=== PATIENT | male | born 1985 | race Caucasian/White ===

== ENCOUNTER 2016-05-11 12:08 | Observation (INO) | payer OTHER ==
[2016-05-11] MEDS ORDERED: diphenhydrAMINE 50 MG/ML 1 ML VIAL IVP STA (13:44)
[2016-05-11] MEDS ORDERED: SODIUM CHLORIDE 0.9% 500 ML IV STA (13:44)
[2016-05-11] MEDS ORDERED: SODIUM CHLORIDE 0.9% 1,000 ML IV STA (13:44)
[2016-05-11] MEDS ORDERED: PROMETHAZINE INJ 25 MG/ML 1 ML VIAL IM STA (13:44)
[2016-05-11] MEDS ORDERED: LORazepam 2 MG/ML SYRINGE IV STA (13:44)
[2016-05-11 14:05] LABS: Basophils # (A) 0.1 k/uL (0-0.2); Basophils % (A) 0 %; CHCM 36.1; Eosinophils # (A) 0.2 k/uL (0-0.7); Eosinophils % (A) 1 %; HCT 47.7 % (39.0-53.0); HDW 2.82; HGB 16.8 gm/dL (13.0-17.5); Luc # (Auto) 0.17; Luc % (Auto) 1; Lymphocytes # (A) 2.2 k/uL (1.0-4.8); Lymphocytes % (A) 14 %; MCH 29.4 pg (25.0-35.0); MCHC 35.3 g/dL (31.0-37.0); MCV 83.4 fL (80.0-100.0); Mean Platelet Volume 8.4; Monocytes # (A) 0.6 k/uL (0-1.0); Monocytes % (A) 3 %; Neutrophils # (A) 13.1 k/uL (1.3-7.7); Neutrophils % (A) 80 %; RBC 5.72 m/uL (4.30-5.90); RDW 13.1 % (11.5-15.5); WBC 16.3 k/uL (3.8-10.6); WBC (Perox) 14.88
[2016-05-11 14:18] LABS: ALT 89 U/L (21-72); AST 45 U/L (17-59); Alkaline Phosphatase 83 U/L (38-126); Amylase 69 U/L (30-110); Anion Gap 20 mmol/L; Blood Urea Nitrogen 15 mg/dL (9-20); Calcium 10.8 mg/dL (8.4-10.2); Carbon Dioxide 18 mmol/L (22-30); Chloride 106 mmol/L (98-107); Glucose 127 mg/dL (74-99); Non-African American GFR(MDRD) >60 (>60 ml/min/1.73 sqM); Potassium 4.5 mmol/L (3.5-5.1); Sodium 144 mmol/L (137-145); Total Bilirubin 1.2 mg/dL (0.2-1.3); Total Protein 8.4 g/dL (6.3-8.2)
--- NOTE | 2016-05-11 14:21 | XR ---
EXAMINATION TYPE: XR KUB DATE OF EXAM: 05/11/2016 2:16 PM COMPARISON: 04/12/2016 HISTORY: Vomiting and abdominal pain TECHNIQUE: One view abdominal series FINDINGS: The osseous structures are intact. The bowel gas pattern is nonspecific. Lung bases are clear. Surg ical clips in the right upper quadrant. IMPRESSION: 1. Nonspecific abdomen. Paucity of bowel gas can be seen with enteritis or ileus. Correlate clinical ly.
[2016-05-11] MEDS ORDERED: HYDROmorphone 1 MG/ML 1 ML SYRINGE IVP STA (14:43)
--- NOTE | 2016-05-11 14:43 | ED ---
General Adult HPI - General Chief complaint: Nausea/Vomiting/Diarrhea Stated complaint: vomiting 4 hours Time Seen by Provider: 05/11/16 13:37 Source: patient, RN notes reviewed Mode of arrival: ambulatory Limitations: no limitations - History of Present Illness Initial comments: Patient 31-year-old male significant past medical history for cyclic vomiting syndrome, who presents emergency room today with chief complaint of exacerbation of his chronic symptoms. Patient does admit to increased nausea vomiting started early this morning. He denies any signs of blood in the emesis. Patient does admit to pain in the middle of his abdomen. States consistent with his cyclic vomiting. Patient denies any other complaints or symptoms at this time. Patient denies any recent fever, chills, shortness of breath, chest pain, back pain, numbness or tingling, dysuria or hematuria, constipation or diarrhea, headaches or visual changes, or any other complaints. - Related Data Home Medications Medication Instructions Recorded Confirmed Hydrocodone/Acetaminophen 1 tab PO Q6H PRN 08/14/15 05/11/16 [Hydrocodon-Acetaminoph 7.5-325] Ibuprofen [Motrin] 800 mg PO Q8HR PRN 05/11/16 05/11/16 Loratadine [Claritin] 10 mg PO DAILY 05/11/16 05/11/16 Previous Rx's Medication Instructions Recorded LORazepam [Ativan] 1 mg PO BID PRN #5 tab 04/12/16 Omeprazole [PriLOSEC] 20 mg PO DAILY #10 capsule. 04/12/16 Promethazine HCl 12.5 mg PO QID #10 tablet 04/12/16 Allergies Allergy/AdvReac Type Severity Reaction Status Date / Time No Known Allergies Allergy Verified 05/11/16 13:41 Review of Systems ROS Statement: Those systems with pertinent positive or pertinent negative responses have been documented in the HPI. ROS Other: All systems not noted in ROS Statement are negative. 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 Smoking Status: Former smoker Past Alcohol Use History: Rare Additional Past Alcohol Use History / Comment(s): Pt states he smoked starting at age 19yrs and quit at age 22 yrs. Past Drug Use History: Marijuana Additional Drug Use History / Comment(s): daily marijuana use - Past Family History Father Family Medical History: No Reported History Mother Family Medical History: Diabetes Mellitus Additional Family Medical History / Comment(s): severe food allergies General Exam - General Exam Comments Initial Comments: General: The patient is awake and alert, in mild distress. Eye: Pupils are equal, round and reactive to light, extra-ocular movements are intact. No nystagmus. There is normal conjunctiva bilaterally. No signs of icterus. Ears, nose, mouth and throat: There are moist mucous membranes and no oral lesions. Neck: The neck is supple, there is no tenderness or JVD. Cardiovascular: There is a regular rate and rhythm. No murmur, rub or gallop is appreciated. Respiratory: Lungs are clear to auscultation, respirations are non-labored, breath sounds are equal. No wheezes, stridor, rales, or rhonchi. Gastrointestinal: Normal appearance. Normal bowel sounds. Soft on palpation. Does have tenderness midline of the abdomen. No rebound tenderness. No guarding. Musculoskeletal: Normal ROM, no tenderness. Strength 5/5. Sensation intact. Pulses equal bilaterally 2+. Neurological: A&O x 3. CN II-XII intact, There are no obvious motor or sensory deficits. Coordination appears grossly intact. Speech is normal. Skin: Skin is warm and dry and no rashes or lesions are noted. Psychiatric: Cooperative, appropriate mood & affect, normal judgment. Limitations: no limitations Course Vital Signs 05/11/16 05/11/16 12:19 13:59 Temperature 98.5 F Pulse Rate 87 85 Respiratory 20 20 Rate Blood Pressure 178/99 165/95 O2 Sat by Pulse 100 100 Oximetry Medical Decision Making - Medical Decision Making Patient is a 16,000 white count. Continues to have nausea vomiting here in the emergency room. Patient will be admitted for intractable nausea vomiting. - Lab Data Result diagrams: 05/11/16 13:34 05/11/16 13:34 Lab Results 05/11/16 05/11/16 Range/Units 13:34 13:34 WBC 16.3 H (3.8-10.6) k/uL RBC 5.72 (4.30-5.90) m/uL Hgb 16.8 (13.0-17.5) gm/dL Hct 47.7 (39.0-53.0) % MCV 83.4 (80.0-100.0) fL MCH 29.4 (25.0-35.0) pg MCHC 35.3 (31.0-37.0) g/dL RDW 13.1 (11.5-15.5) % Plt Count 322 (150-450) k/uL Neutrophils % 80 % Lymphocytes % 14 % Monocytes % 3 % Eosinophils % 1 % Basophils % 0 % Neutrophils # 13.1 H (1.3-7.7) k/uL Lymphocytes # 2.2 (1.0-4.8) k/uL Monocytes # 0.6 (0-1.0) k/uL Eosinophils # 0.2 (0-0.7) k/uL Basophils # 0.1 (0-0.2) k/uL Sodium 144 (137-145) mmol/L Potassium 4.5 (3.5-5.1) mmol/L Chloride 106 (98-107) mmol/L Carbon Dioxide 18 L (22-30) mmol/L Anion Gap 20 mmol/L BUN 15 (9-20) mg/dL Creatinine 0.79 (0.66-1.25) mg/dL Est GFR (MDRD) Af Amer >60 (>60 ml/min/1.73 sqM) Est GFR (MDRD) Non-Af >60 (>60 ml/min/1.73 sqM) Glucose 127 H (74-99) mg/dL Calcium 10.8 H (8.4-10.2) mg/dL Total Bilirubin 1.2 (0.2-1.3) mg/dL AST 45 (17-59) U/L ALT 89 H (21-72) U/L Alkaline Phosphatase 83 (38-126) U/L Total Protein 8.4 H (6.3-8.2) g/dL Albumin 5.1 H (3.5-5.0) g/dL Amylase 69 (30-110) U/L Lipase 106 (23-300) U/L Disposition Clinical Impression: Intractable nausea and vomiting Disposition: ADMITTED IP TO THIS HOSP Condition: Stable Time of Disposition: 14:49
[2016-05-11] MEDS ORDERED: ONDANSETRON 4 MG/2 ML VIAL IVP PRN (14:49)
[2016-05-11] MEDS ORDERED: SODIUM CHLORIDE 0.9% 1,000 ML IV ONE (14:49)
[2016-05-11] MEDS ORDERED: NALOXONE 0.4 MG/ML 1 ML VIAL IV PRN (14:49)
[2016-05-11] MEDS ORDERED: LORazepam 2 MG/ML SYRINGE IV PRN (14:49)
[2016-05-11] MEDS ORDERED: PROMETHAZINE INJ 25 MG in SODIUM CHLORIDE 0.9% 50 ML IVPB PRN (14:52)
[2016-05-11 15:54] LABS: Appearance,Urine Clear (Clear); Bilirubin,Urine Negative (Negative); Glucose,Urine (UA) Negative (Negative); Ketones,Urine 2+ (Negative); Leukocyte Esterase,Urine Negative (Negative); Nitrite,Urine Negative (Negative); PH, Urine 7.5 (5.0-8.0); Protein,Urine Trace (Negative); Specific Gravity,Urine 1.017 (1.001-1.035); UA Billing (MACRO vs. MICRO) CHEM; Urobilinogen,Urine <2.0 mg/dL (<2.0)
[2016-05-11] MEDS: HYDROmorphone 1 MG/ML 1 ML SYRINGE IV PRN ×2 (18:13→21:23)
[2016-05-11] MEDS ORDERED: cloNIDine HCL 0.1 MG TAB PO PRN (21:16)
[2016-05-11] MEDS ORDERED: TEMAZEPAM 15 MG CAP PO PRN (21:16)
[2016-05-11] MEDS ORDERED: ALPRAZolam 0.25 MG TAB PO PRN (21:16)
[2016-05-11] MEDS ORDERED: HYDROcodone/APAP 7.5-325MG 1 EACH TAB PO PRN (21:18)
[2016-05-11] MEDS ORDERED: hydrALAZINE HCL 20 MG/ML 1 ML VIAL IVP PRN (21:18)
[2016-05-11] MEDS ORDERED: PROMETHAZINE 25 MG TAB PO SCH ×2 (22:00)
[2016-05-11] MEDS: PANTOPRAZOLE 40 MG/10 ML VIAL IVP SCH (23:04)
[2016-05-12] MEDS: HYDROmorphone 1 MG/ML 1 ML SYRINGE IV PRN ×4 (01:51→12:33)
[2016-05-12 07:53] VITALS: RESP 18
[2016-05-12 08:37] LABS: Basophils % (A) 0 %; CH 29.3; CHCM 34.3; Eosinophils # (A) 0.3 k/uL (0-0.7); Eosinophils % (A) 3 %; HDW 2.72; HGB 14.7 gm/dL (13.0-17.5); Luc # (Auto) 0.21; Luc % (Auto) 2; Lymphocytes # (A) 2.6 k/uL (1.0-4.8); Lymphocytes % (A) 29 %; MCH 29.3 pg (25.0-35.0); MCHC 34.2 g/dL (31.0-37.0); MCV 85.6 fL (80.0-100.0); Mean Platelet Volume 7.7; Monocytes # (A) 0.6 k/uL (0-1.0); Monocytes % (A) 6 %; Neutrophils # (A) 5.3 k/uL (1.3-7.7); Neutrophils % (A) 59 %; RBC 5.03 m/uL (4.30-5.90); RDW 13.1 % (11.5-15.5); WBC (Perox) 8.73
[2016-05-12] MEDS: PROMETHAZINE 25 MG TAB PO SCH ×2 (08:37→13:22)
[2016-05-12] MEDS: PANTOPRAZOLE 40 MG/10 ML VIAL IVP SCH (08:37)
--- NOTE | 2016-05-12 08:43 | HP ---
DATE OF ADMISSION: CHIEF COMPLAINT: nausea and vomiting. HISTORY OF PRESENT ILLNESS: This 31-year-old gentleman with a past medical history of asthma, GERD, cyclic vomiting syndrome, back pain, DJD, history of anxiety being followed by Dr. Lewis in the outpatient setting recently admitted to [facility] apparently. The patient also had an episode of superficial thrombophlebitis. Cephalexin was prescribed as an outpatient. Today, this morning, the patient had recurrent episodes of incessant vomiting, unable to keep anything down. The vomiting is bilious. Mild diffuse abdominal discomfort is also being complained of. The patient came to [facility] and admitted for further evaluation and treatment. There is no history of any fever, rigors or chills. No history of headache, loss of consciousness or seizures. PAST MEDICAL HISTORY: Asthma, GERD, cyclic vomiting syndrome, adenoidectomy, appendectomy, history of anxiety. MEDICATIONS PRIOR TO ADMISSION: 1. Claritin 10 mg p.o. daily. 2. Motrin 800 mg q.8 p.r.n. 3. Promethazine 12.5 mg p.o. q.i.d. 4. Prilosec 20 mg daily. 5. Ativan 1 mg b.i.d. p.r.n. 6. Hydrocodone 7.5 q.6 p.r.n. Allergies are none. FAMILY HISTORY: History of food allergies in the family. SOCIAL HISTORY: Previous history of smoking. Occasional alcohol and THC. REVIEW OF SYSTEMS: ENT: No diminishing hearing or diminished vision. CARDIOVASCULAR : No angina or palpitations. RESPIRATORY: No cough or hemoptysis, otherwise, as mentioned earlier. GI: As mentioned earlier. : No dysuria. NERVOUS SYSTEM: No numbness or weakness. ALLERGY/IMMUNOLOGY: neg. MUSCULOSKELETAL: As mentioned earlier. HEMATOLOGY/ONCOLOGY: No history of anemia. ENDOCRINE: No history of diabetes mellitus or hypothyroidism. CONSTITUTIONAL: As mentioned earlier. DERMATOLOGY: Negative. RHEUMATOLOGY: Negative. PSYCHIATRY: As mentioned earlier. PHYSICAL EXAMINATION: The patient is alert and oriented x3. Pulse is 94, blood pressure 169/87, respirations 18, temperature 96.9, pulse ox 98% on room air. HEENT: Conjunctivae normal. Oral mucosa moist. NECK: No jugular venous distention. No carotid bruit. No lymph node enlargement. CARDIOVASCULAR: S1 and S2, muffled. No S3, no S4. RESPIRATORY: Breath sounds diminished at the bases. No rhonchi, no crackles. ABDOMEN: Soft, obese, mild diffuse tenderness present. No guarding, no rigidity. No mass palpable. LEGS: No edema, no swelling. NERVOUS SYSTEM: Higher function as mentioned earlier. Moves all 4 limbs. No focal motor or sensory deficits. LYMPHATICS: No lymphadenopathy of neck, axillae or groin. SKIN: No ulcers, rashes or bleeding. Labs are at this time show WBC 16.3, hemoglobin 16.8. Sodium 144, potassium 4.5. Calcium is 10.8. Albumin is 5.1. UA noted, 2+ ketones. ASSESSMENT: 1. Acute incessant vomiting, possibly cyclic vomiting syndrome, acute exacerbation. 2. History of asthma. 3. Gastroesophageal reflux disease. 4. Hypertension. 5. Adenoidectomy. 6. Appendectomy. 7. Cholecystectomy. 8. History of anxiety. 9. History of THC. 10. Remote history of nicotine dependence. 11. FULL CODE. 12. Obesity with body mass index of 40. 13. Recent thrombophlebitis of the right antecubital fossa. RECOMMENDATIONS AND DISCUSSION: This 31-year-old gentleman who presented with multiple complex medical issues, we will monitor the patient closely. Continue the current medications. Continue symptomatic treatment. I would recommend p.r.n. medication for blood pressure. Otherwise Protonix keep the patient n.p.o. except medications. Closely monitor. Guarded prognosis because of multiple complex medical issues. Would also recommend IV antibiotics. Further recommendations to follow. MTDD
[2016-05-12] MEDS ORDERED: LORATADINE 10 MG TAB PO SCH (09:00)
[2016-05-12] MEDS ORDERED: HEPARIN SODIUM,PORCINE 5,000 UNIT/ML 1 ML VIAL SQ SCH (09:00)
[2016-05-12 09:13] LABS: ALT 70 U/L (21-72); AST 34 U/L (17-59); Alkaline Phosphatase 58 U/L (38-126); Anion Gap 11 mmol/L; Blood Urea Nitrogen 10 mg/dL (9-20); Calcium 9.2 mg/dL (8.4-10.2); Carbon Dioxide 24 mmol/L (22-30); Chloride 107 mmol/L (98-107); Glucose 83 mg/dL (74-99); Magnesium 1.7 mg/dL (1.6-2.3); Non-African American GFR(MDRD) >60 (>60 ml/min/1.73 sqM); Sodium 142 mmol/L (137-145); Total Bilirubin 1.4 mg/dL (0.2-1.3); Total Protein 6.4 g/dL (6.3-8.2)
[2016-05-12 09:17] LABS: Potassium 3.8 mmol/L (3.5-5.1)
[2016-05-12 15:07] VITALS: BP 121/70; PULSE 77; TEMP 97.1
--- NOTE | 2016-05-13 15:43 | DS ---
DATE OF ADMISSION: 05/11/2016 DATE OF DISCHARGE: 05/12/2016 FINAL DIAGNOSES: 1. Intractable nausea, vomiting as well as possible acute cyclical vomiting syndrome, acute exacerbation. 2. History of asthma. 3. Gastroesophageal reflux disease. 4. Hypertension. 5. Adenoidectomy. 6. Appendectomy. 7. Cholecystectomy. 8. History of anxiety. 9. History of tetrahydrocannabinol. 10. Remote history of nicotine dependence. 11. Obesity; body mass index of 40. 12. Recent thrombophlebitis of the right antecubital fossa. 13. Increased white count, possibly reactive, improved. 14. Dehydration, present on admission. DISCHARGE DISPOSITION: The patient will be discharged in stable condition with guarded prognosis. HISTORY OF PRESENT ILLNESS: This 19-year-old gentleman with a past medical history of multiple medical problems, being followed by Dr. Lewis in the outpatient setting, was admitted with incessant vomiting and nausea. Patient was treated symptomatically. Patient improved significantly. On exam, vitals are stable. CARDIOVASCULAR SYSTEM: S1, S2 muffled. ABDOMEN: Soft, non-tender. NERVOUS SYSTEM: No focal deficit. The patient is keen on going home. DISCHARGE ADVICE AND MEDICATIONS: 1. Diet is cardiac, soft. 2. Activity limited until followup. 3. Follow up with Dr. Lewis in 2 to 3 days with labs. 4. [place] 1 p.o. q.6 p.r.n. 5. Ativan 1 mg b.i.d. p.r.n. 6. Claritin 10 mg daily. 7. Prilosec 20 mg daily. 8. Promethazine 12.5 mg q.i.d. p.r.n.
== END 2016-05-12 17:10 | disposition home or self-care (01) ==
LOC: EC 12:08 → 4MS4W 14:51
PROVIDERS: ADMIT Internal Medicine; ATTEND Internal Medicine
DX: R11.2 Nausea with vomiting, unspecified (principal); J45.909 Unspecified asthma, uncomplicated; K21.9 Gastro-esophageal reflux disease without esophagitis; I10 Essential (primary) hypertension; F41.9 Anxiety disorder, unspecified; F12.90 Cannabis use, unspecified, uncomplicated; Z87.891 Personal history of nicotine dependence; E66.9 Obesity, unspecified; Z68.41 Body mass index [BMI] 40.0-44.9, adult; Z86.72 Personal history of thrombophlebitis; E86.0 Dehydration; D72.829 Elevated white blood cell count, unspecified; Z79.899 Other long term (current) drug therapy; M54.9 Dorsalgia, unspecified; Z83.3 Family history of diabetes mellitus
CPT/HCPCS: 96375 ×4; 96361 ×3; 96372 ×2; 96374; 99285; 36415; 80053 ×2; 82150; 83690; 83735; 85025 ×2; 81003; 74000; G0378 ×2; J2060; J1200; J1644; J2550; J2405; J1170 ×2; C9113 ×2; 96365; 96376

== ENCOUNTER 2016-05-24 09:54 | Observation (INO) | payer OTHER ==
[2016-05-24] MEDS ORDERED: HYDROmorphone 2 MG/ML 1 ML SYRINGE IVP STA (10:49)
[2016-05-24] MEDS ORDERED: diphenhydrAMINE 50 MG/ML 1 ML VIAL IVP STA (10:49)
[2016-05-24] MEDS ORDERED: SODIUM CHLORIDE 0.9% 500 ML IV STA (10:49)
[2016-05-24] MEDS ORDERED: ONDANSETRON 4 MG/2 ML VIAL IVP STA (10:49)
[2016-05-24] MEDS ORDERED: LORazepam 2 MG/ML SYRINGE IV STA (10:49)
[2016-05-24] MEDS ORDERED: PANTOPRAZOLE 40 MG/10 ML VIAL IVP STA (10:49)
[2016-05-24] MEDS ORDERED: diphenhydrAMINE 50 MG/ML 1 ML VIAL IVP PRN (10:49)
[2016-05-24] MEDS ORDERED: SODIUM CHLORIDE 0.9% 1,000 ML IV STA ×3 (10:49→11:54)
[2016-05-24 11:11] LABS: Basophils # (A) 0.1 k/uL (0-0.2); Basophils % (A) 0 %; CH 30.8; CHCM 37.3; Eosinophils # (A) 0.2 k/uL (0-0.7); Eosinophils % (A) 2 %; HCT 50.5 % (39.0-53.0); HDW 2.86; Luc # (Auto) 0.27; Luc % (Auto) 2; Lymphocytes # (A) 2.1 k/uL (1.0-4.8); Lymphocytes % (A) 16 %; MCHC 36.1 g/dL (31.0-37.0); MCV 82.9 fL (80.0-100.0); Mean Platelet Volume 8.2; Monocytes # (A) 0.6 k/uL (0-1.0); Monocytes % (A) 5 %; Neutrophils # (A) 9.8 k/uL (1.3-7.7); Neutrophils % (A) 75 %; RBC 6.09 m/uL (4.30-5.90); RDW 13.2 % (11.5-15.5); WBC 13.1 k/uL (3.8-10.6); WBC (Perox) 13.54
[2016-05-24 11:13] LABS: HGB 18.3 gm/dL (13.0-17.5)
[2016-05-24 11:14] LABS: ALT 147 U/L (21-72); AST 63 U/L (17-59); Alkaline Phosphatase 79 U/L (38-126); Anion Gap 19 mmol/L; Blood Urea Nitrogen 18 mg/dL (9-20); Calcium 10.5 mg/dL (8.4-10.2); Carbon Dioxide 17 mmol/L (22-30); Chloride 106 mmol/L (98-107); Glucose 131 mg/dL (74-99); Magnesium 1.8 mg/dL (1.6-2.3); Non-African American GFR(MDRD) >60 (>60 ml/min/1.73 sqM); Partial Thromboplastin Time 23.5 sec (22.0-30.0); Phosphorous 2.7 mg/dL (2.5-4.5); Potassium 4.1 mmol/L (3.5-5.1); Prothrombin Time 10.1 sec (9.0-12.0); Sodium 142 mmol/L (137-145); Total Bilirubin 1.7 mg/dL (0.2-1.3); Total Protein 8.4 g/dL (6.3-8.2)
[2016-05-24 11:25] LABS: Creatine Kinase 78 U/L (55-170)
[2016-05-24 11:38] LABS: Creatine Kinase MB 0.5 ng/mL (0.0-2.4); Troponin I <0.012 ng/mL (0.000-0.034)
[2016-05-24] MEDS ORDERED: SODIUM CHLORIDE 0.9% 1,000 ML IV ONE (11:59)
--- NOTE | 2016-05-24 11:59 | ED ---
General Adult HPI - General Chief complaint: Nausea/Vomiting/Diarrhea Stated complaint: vomiting Time Seen by Provider: 05/24/16 10:32 Source: patient, RN notes reviewed, old records reviewed Mode of arrival: ambulatory Limitations: no limitations - History of Present Illness Initial comments: This is a 31-year-old male well-known to this facility for evaluation. Patient coming in for evaluation of abdominal pain nausea vomiting severe. Patient has history of cyclic vomiting syndrome. Multiple hospital admissions, felt it with diarrheal illnesses blood-borne infection. Patient states his symptoms been going on for 3 days progressively worsening can keep anything down pain is uncontrolled and nausea vomiting is uncontrolled. Patient has no fevers. No headache chest pain or shortness of breath - Related Data Home Medications Medication Instructions Recorded Confirmed Hydrocodone/Acetaminophen 1 tab PO Q6H PRN 08/14/15 05/24/16 [Hydrocodon-Acetaminoph 7.5-325] Loratadine [Claritin] 10 mg PO DAILY 05/11/16 05/24/16 Albuterol Nebulized [Ventolin 2.5 mg INHALATION RT-Q6H PRN 05/24/16 05/24/16 Nebulized] Ibuprofen [Motrin] 800 mg PO DAILY PRN 05/24/16 05/24/16 Previous Rx's Medication Instructions Recorded Omeprazole [PriLOSEC] 20 mg PO DAILY #10 capsule. 04/12/16 Allergies Allergy/AdvReac Type Severity Reaction Status Date / Time No Known Allergies Allergy Verified 05/24/16 10:47 Review of Systems ROS Statement: Those systems with pertinent positive or pertinent negative responses have been documented in the HPI. ROS Other: All systems not noted in ROS Statement are negative. Past Medical History Past Medical History: Asthma, GERD/Reflux Additional Past Medical History / Comment(s): cyclic vomiting syndrome, back pain(disc problem) History of Any Multi-Drug Resistant Organisms: None Reported Past Surgical History: Adenoidectomy, Appendectomy, Cholecystectomy Additional Past Surgical History / Comment(s): EGD Past Anesthesia/Blood Transfusion Reactions: No Reported Reaction Past Psychological History: Anxiety Additional Psychological History / Comment(s): PT LIVES WITH HIS GIRL FRIEND AND 2 KIDS IN A SINGLE STORY HOME THAT HAS 2 STEPS TO GET INTO. 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 NO SERVICE IN BACKGROUND. NO PETS, NO MEDICAL EQUIPMENT. Smoking Status: Former smoker Past Alcohol Use History: None Reported Additional Past Alcohol Use History / Comment(s): Pt states he smoked [id number], QUIT 2007. Past Drug Use History: None Reported Additional Drug Use History / Comment(s): daily marijuana use(2-3 TIMES A DAY) - Past Family History Father Family Medical History: No Reported History Mother Family Medical History: Diabetes Mellitus Additional Family Medical History / Comment(s): severe food allergies General Exam Limitations: no limitations General appearance: alert, in no apparent distress Head exam: Present: atraumatic, normocephalic, normal inspection Eye exam: Present: normal appearance, PERRL, EOMI. Absent: scleral icterus, conjunctival injection, periorbital swelling ENT exam: Present: normal exam, mucous membranes moist Neck exam: Present: normal inspection. Absent: tenderness, meningismus, lymphadenopathy Respiratory exam: Present: normal lung sounds bilaterally. Absent: respiratory distress, wheezes, rales, rhonchi, stridor Cardiovascular Exam: Present: normal rhythm, tachycardia, normal heart sounds. Absent: systolic murmur, diastolic murmur, rubs, gallop, clicks GI/Abdominal exam: Present: soft, normal bowel sounds. Absent: distended, tenderness, guarding, rebound, rigid Extremities exam: Present: normal inspection, full ROM, normal capillary refill. Absent: tenderness, pedal edema, joint swelling, calf tenderness Back exam: Present: normal inspection Neurological exam: Present: alert, oriented X3, CN II-XII intact Psychiatric exam: Present: normal affect, normal mood Skin exam: Present: warm, dry, intact, normal color. Absent: rash Course Vital Signs 05/24/16 05/24/16 10:04 11:15 Temperature 97.2 F L 97.9 F Pulse Rate 115 H 89 Respiratory 22 20 Rate Blood Pressure 150/115 169/98 O2 Sat by Pulse 98 96 Oximetry - Reevaluation(s) Reevaluation #1: 05/24/16 11:58 Patient still having symptoms of nausea vomiting and abdominal pain Reevaluation #2: 05/24/16 11:58 Prior ER and hospital visits are reviewed Medical Decision Making - Medical Decision Making Plan and mallei oocyte with vomiting syndrome. Severe nausea vomiting intractable abdominal pain. Patient will be admitted for evaluation and treatment - Lab Data Result diagrams: 05/24/16 10:10 05/24/16 10:10 Lab Results 05/24/16 05/24/16 05/24/16 Range/Units 10:10 10:10 10:10 WBC 13.1 H (3.8-10.6) k/uL RBC 6.09 H (4.30-5.90) m/uL Hgb 18.3 H D (13.0-17.5) gm/dL Hct 50.5 (39.0-53.0) % MCV 82.9 (80.0-100.0) fL MCH 30.0 (25.0-35.0) pg MCHC 36.1 (31.0-37.0) g/dL RDW 13.2 (11.5-15.5) % Plt Count 371 (150-450) k/uL Neutrophils % 75 % Lymphocytes % 16 % Monocytes % 5 % Eosinophils % 2 % Basophils % 0 % Neutrophils # 9.8 H (1.3-7.7) k/uL Lymphocytes # 2.1 (1.0-4.8) k/uL Monocytes # 0.6 (0-1.0) k/uL Eosinophils # 0.2 (0-0.7) k/uL Basophils # 0.1 (0-0.2) k/uL PT (9.0-12.0) sec INR (<1.1) APTT (22.0-30.0) sec Sodium 142 (137-145) mmol/L Potassium 4.1 (3.5-5.1) mmol/L Chloride 106 (98-107) mmol/L Carbon Dioxide 17 L (22-30) mmol/L Anion Gap 19 mmol/L BUN 18 (9-20) mg/dL Creatinine 0.96 (0.66-1.25) mg/dL Est GFR (MDRD) Af Amer >60 (>60 ml/min/1.73 sqM) Est GFR (MDRD) Non-Af >60 (>60 ml/min/1.73 sqM) Glucose 131 H (74-99) mg/dL Plasma Lactic Acid [place] (0.7-2.0) mmol/L Calcium 10.5 H (8.4-10.2) mg/dL Phosphorus 2.7 (2.5-4.5) mg/dL Magnesium 1.8 (1.6-2.3) mg/dL Total Bilirubin 1.7 H (0.2-1.3) mg/dL AST 63 H (17-59) U/L ALT 147 H (21-72) U/L Alkaline Phosphatase 79 (38-126) U/L Total Creatine Kinase 78 (55-170) U/L CK-MB (CK-2) 0.5 (0.0-2.4) ng/mL CK-MB (CK-2) Rel Index 0.6 Troponin I <0.012 (0.000-0.034) ng/mL Total Protein 8.4 H (6.3-8.2) g/dL Albumin 5.1 H (3.5-5.0) g/dL 05/24/16 05/24/16 Range/Units 10:10 11:10 WBC (3.8-10.6) k/uL RBC (4.30-5.90) m/uL Hgb (13.0-17.5) gm/dL Hct (39.0-53.0) % MCV (80.0-100.0) fL MCH (25.0-35.0) pg MCHC (31.0-37.0) g/dL RDW (11.5-15.5) % Plt Count (150-450) k/uL Neutrophils % % Lymphocytes % % Monocytes % % Eosinophils % % Basophils % % Neutrophils # (1.3-7.7) k/uL Lymphocytes # (1.0-4.8) k/uL Monocytes # (0-1.0) k/uL Eosinophils # (0-0.7) k/uL Basophils # (0-0.2) k/uL PT 10.1 (9.0-12.0) sec INR 1.0 (<1.1) APTT 23.5 (22.0-30.0) sec Sodium (137-145) mmol/L Potassium (3.5-5.1) mmol/L Chloride (98-107) mmol/L Carbon Dioxide (22-30) mmol/L Anion Gap mmol/L BUN (9-20) mg/dL Creatinine (0.66-1.25) mg/dL Est GFR (MDRD) Af Amer (>60 ml/min/1.73 sqM) Est GFR (MDRD) Non-Af (>60 ml/min/1.73 sqM) Glucose (74-99) mg/dL Plasma Lactic Acid [place] 2.4 H* (0.7-2.0) mmol/L Calcium (8.4-10.2) mg/dL Phosphorus (2.5-4.5) mg/dL Magnesium (1.6-2.3) mg/dL Total Bilirubin (0.2-1.3) mg/dL AST (17-59) U/L ALT (21-72) U/L Alkaline Phosphatase (38-126) U/L Total Creatine Kinase (55-170) U/L CK-MB (CK-2) (0.0-2.4) ng/mL CK-MB (CK-2) Rel Index Troponin I (0.000-0.034) ng/mL Total Protein (6.3-8.2) g/dL Albumin (3.5-5.0) g/dL Disposition Clinical Impression: Intractable nausea and vomiting, Cyclical vomiting, intractable, Cyclic vomiting syndrome, Dehydration, Vomiting, Acute vomiting, Drug-induced nausea and vomiting, Nausea and vomiting Disposition: ADMITTED IP TO THIS [facility] Condition: Fair Referrals: Sher Lewis MD [Primary Care Provider] - 1-2 days
[2016-05-24] MEDS: LORazepam 2 MG/ML SYRINGE IV PRN ×3 (15:04→23:24)
[2016-05-24] MEDS: HYDROmorphone 1 MG/ML 1 ML SYRINGE IVP PRN ×3 (15:04→23:23)
[2016-05-24] MEDS: ONDANSETRON 4 MG/2 ML VIAL IVP PRN ×2 (17:20→23:24)
[2016-05-25] MEDS: HYDROmorphone 1 MG/ML 1 ML SYRINGE IVP PRN ×3 (04:01→12:46)
[2016-05-25 07:56] VITALS: BP 133/83; PULSE 90; RESP 20; TEMP 97.7
[2016-05-25] MEDS: LORazepam 2 MG/ML SYRINGE IV PRN ×2 (08:18→12:46)
[2016-05-25] MEDS: ONDANSETRON 4 MG/2 ML VIAL IVP PRN (08:18)
[2016-05-25] MEDS ORDERED: PANTOPRAZOLE 40 MG/10 ML VIAL IVP SCH (09:00)
[2016-05-25 12:00] VITALS: BMI 38.5
[2016-05-25] MEDS ORDERED: ENOXAPARIN 40 MG/0.4 ML SYRINGE SQ SCH (15:30)
--- NOTE | 2016-05-25 18:53 | HP ---
DATE OF ADMISSION: 05/24/2016 PRESENTING COMPLAINT: Nausea, vomiting. HISTORY OF PRESENTING COMPLAINT: This is 31-year-old patient who has had multiple admissions to the hospital; follows with Dr. Sher Lewis. Patient's chronic stable conditions include GERD, lower back pain, and he also has cyclical vomiting syndrome. Patient presented with nausea, vomiting, some abdominal pain; not able to keep anything down. Denied any fever or chills. He was put on IV fluids. Patient not able to keep anything down. REVIEW OF SYSTEMS: CONSTITUTIONAL: Tired. HEENT: None. RESPIRATORY: None. CARDIOVASCULAR: None. GASTROINTESTINAL: As above. GENITOURINARY: None. MUSCULOSKELETAL: Chronic low back pain. DERMATOLOGICAL: None. HEMATOLOGICAL: None. LYMPHATICS: None. PSYCHIATRY: None. NEUROLOGIC: None. PAST HISTORY: 1. Cyclical vomiting syndrome. 2. GERD. 3. Lower back pain or disc problem. PAST SURGICAL HISTORY: Appendectomy, cholecystectomy. SOCIAL HISTORY: Lives with his girlfriend and 2 children. 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 No smoking. Does use marijuana. FAMILY HISTORY: Reviewed; non-contributory to presentation. ALLERGIES: NONE. HOME MEDICATIONS: 1. Prilosec 20 mg p.o. daily. 2. Claritin 10 mg p.o. daily. 3. Motrin 800 mg daily p.r.n. 4. [place] 7.5 one tablet q.6 p.r.n. 5. Ventolin 2.5 q.6 p.r.n. On examination, temperature 98.3, pulse 107, respiration 18, blood pressure 152/90, pulse ox 99% on room air. GENERAL APPEARANCE: Well built; BMI of 38.6. Lying in bed. Not in distress. EYES: Pupils equal. Conjunctivae normal. HEENT: Oral cavity normal. NECK: JVD not raised. Mass not palpable. RESPIRATORY: Effort normal. LUNGS: Fair air entry. CARDIOVASCULAR: First and second sounds normal. No edema. ABDOMEN: Soft. Mild tenderness. Liver and spleen not palpable. LYMPHATIC: No lymph node palpable in neck or axillae. PSYCHIATRY: Alert and oriented x3. Mood and affect normal. INVESTIGATIONS: White count 13.1, hemoglobin 18.3, potassium 4.1. Lactic acid 2.4. ASSESSMENT: 1. Acute flareup of cyclical vomiting syndrome. 2. Obesity; body mass index greater than 30. 3. Chronic low back pain from herniated disc. 4. Lactic acidosis from dehydration. 5. Hypercalcemia from water deficit. PLAN: Patient was started on IV fluids; initially made n.p.o., then started on clear liquids as tolerated. Given PPI. Diet to be advanced as tolerated.
--- NOTE | 2016-05-26 11:21 | DS ---
DATE OF ADMISSION: 05/24/2016 DATE OF DISCHARGE: 05/25/2016 FINAL DIAGNOSES: 1. Acute flare-up of cyclical vomiting syndrome. 2. Obesity; body mass index greater than 30. 3. Chronic low back pain from herniated disc. 4. Lactic acidosis from dehydration. 5. Hypercalcemia from free water deficit. HOSPITAL COURSE: This patient presented with the flare-up of acute cyclic vomiting syndrome, given IV fluids, antiemetics, doing better at the time of discharge, tolerating a diet. On exam, abdomen is soft, nontender. Bowel sounds present. DISCHARGE MEDICATIONS: 1. Ralph 7.5 one tablet q.6 p.r.n. 2. Prilosec 20 mg a day. 3. Claritin 10 mg a day. 4. Ventolin 2.5 q.6 p.r.n. 5. Motrin 81 mg p.r.n. Follow up with Dr. Lewis 05/31/2016.
== END 2016-05-25 16:15 | disposition home or self-care (01) ==
LOC: EC 09:54 → 5MS5E 12:00
PROVIDERS: ADMIT Hospitalist; ATTEND Hospitalist
DX: G43.A0 Cyclical vomiting, in migraine, not intractable (principal); E66.9 Obesity, unspecified; Z68.30 Body mass index [BMI] 30.0-30.9, adult; M54.5 Low back pain; G89.29 Other chronic pain; E86.0 Dehydration; E87.2 Acidosis; E83.52 Hypercalcemia; Z79.899 Other long term (current) drug therapy; F12.90 Cannabis use, unspecified, uncomplicated; J45.909 Unspecified asthma, uncomplicated; K21.9 Gastro-esophageal reflux disease without esophagitis; Z87.891 Personal history of nicotine dependence; R10.9 Unspecified abdominal pain
CPT/HCPCS: 96374 ×2; 96375 ×5; 96361 ×2; 99285 ×2; 36415; 80053; 82550; 82553; 83605; 83735; 84100; 84484; 85025; 85610; 85730; G0378 ×2; J2060 ×2; J1170 ×3; J1200; J2405 ×2; C9113 ×2; 96376

== ENCOUNTER 2016-06-28 09:31 | Observation (INO) | payer OTHER ==
[2016-06-28] MEDS ORDERED: METOCLOPRAMIDE 5 MG/ML 2 ML VIAL IVP STA (10:11)
[2016-06-28] MEDS ORDERED: SODIUM CHLORIDE 0.9% 2,000 ML IV STA (10:11)
[2016-06-28] MEDS ORDERED: KETOROLAC 30 MG/ML 1 ML VIAL IVP STA (10:12)
[2016-06-28] MEDS ORDERED: LORazepam 2 MG/ML SYRINGE IM STA (10:12)
[2016-06-28] MEDS ORDERED: diphenhydrAMINE 50 MG/ML 1 ML VIAL IVP STA (10:12)
--- NOTE | 2016-06-28 10:15 | ED ---
Nausea/Vomiting/Diarrhea HPI <Sebastian Anderson - Last Filed: 06/28/16 14:40> - General Source: patient, RN notes reviewed Mode of arrival: ambulatory Limitations: no limitations <Susanne Bowles - Last Filed: 06/28/16 14:58> - General Chief complaint: Nausea/Vomiting/Diarrhea Stated complaint: Vomiting Time Seen by Provider: 06/28/16 10:03 - History of Present Illness Initial comments: 31-year-old male with a history of sick to the emergency Department chief complaint nausea and vomiting. Patient states this started this morning. Patient states it is much like his chronic psych vomiting syndrome. Patient states multiple times at home. He tried at home oral medication however he vomited it right back up. Patient states he has full body aches and is sweating and he feels nauseous. Patient states that like he is sick with vomiting so he often is admitted because the vomiting just will not get under control. Patient states that he is not currently having any other symptoms area patient states that those reviewed were often over the past few months. Patient denies any recent fever, chills, shortness of breath, chest pain, back pain, numbness or tingling, dysuria or hematuria, constipation or diarrhea, headaches or visual changes, or any other current symptoms. (Susanne Bowles) - Related Data Home Medications Medication Instructions Recorded Confirmed Hydrocodone/Acetaminophen 1 tab PO Q6H PRN 08/14/15 06/28/16 [Hydrocodon-Acetaminoph 7.5-325] Loratadine [Claritin] 10 mg PO DAILY 05/11/16 06/28/16 Albuterol Nebulized [Ventolin 2.5 mg INHALATION RT-Q6H PRN 05/24/16 06/28/16 Nebulized] Ibuprofen [Motrin] 800 mg PO DAILY PRN 05/24/16 06/28/16 Previous Rx's Medication Instructions Recorded Omeprazole [PriLOSEC] 20 mg PO DAILY #10 capsule. 04/12/16 Allergies Allergy/AdvReac Type Severity Reaction Status Date / Time No Known Allergies Allergy Verified 06/28/16 10:27 Review of Systems ROS Other: All systems not noted in ROS Statement are negative. <Sebastian Anderson - Last Filed: 06/28/16 14:40> ROS Other: All systems not noted in ROS Statement are negative. <Susanne Bowles - Last Filed: 06/28/16 14:58> ROS Statement: Those systems with pertinent positive or pertinent negative responses have been documented in the HPI. Past Medical History Past Medical History: Asthma, GERD/Reflux Additional Past Medical History / Comment(s): cyclic vomiting syndrome, R antecubital thrombophlebitis (pt was suppose to have U/S but has been unable d/ t illness), back pain(disc problem) History of Any Multi-Drug Resistant Organisms: None Reported Past Surgical History: Adenoidectomy, Appendectomy, Cholecystectomy Additional Past Surgical History / Comment(s): EGD, medical marijuana Past Anesthesia/Blood Transfusion Reactions: No Reported Reaction Past Psychological History: Anxiety Additional Psychological History / Comment(s): PT LIVES WITH HIS GIRL FRIEND AND 2 KIDS IN A SINGLE STORY HOME THAT HAS 2 STEPS TO GET INTO. 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 NO SERVICE IN BACKGROUND. NO PETS, NO MEDICAL EQUIPMENT. Smoking Status: Current some day smoker Past Alcohol Use History: None Reported Additional Past Alcohol Use History / Comment(s): Pt states he smoked [id number], QUIT 2007. Past Drug Use History: Marijuana Additional Drug Use History / Comment(s): daily marijuana use(2-3 TIMES A DAY) - Past Family History Father Family Medical History: No Reported History Mother Family Medical History: Diabetes Mellitus Additional Family Medical History / Comment(s): severe food allergies <Susanne Bowles - Last Filed: 06/28/16 14:58> General Exam <Sebastian Anderson - Last Filed: 06/28/16 14:40> Limitations: no limitations <Susanne Bowles - Last Filed: 06/28/16 14:58> - General Exam Comments Initial Comments: General: The patient is awake and alert, in no distress, and does not appear acutely ill. Eye: Pupils are equal, round. Ears, nose, mouth and throat: There are moist mucous membranes. Neck: The neck is supple. Cardiovascular: There is a regular rate and rhythm. No murmur, rub or gallop is appreciated. Respiratory: Lungs are clear to auscultation, respirations are non-labored, breath sounds are equal. No wheezes, stridor, rales, or rhonchi. Gastrointestinal: Soft, non-distended, non-tender abdomen without masses or organomegaly noted. There is no rebound or guarding present. No CVA tenderness. Bowel sounds are unremarkable. Back: There is no tenderness to palpation in the midline. There is no obvious deformity. No rashes noted. Neurological: CN II-XII intact, There are no obvious motor or sensory deficits. Coordination appears grossly intact. Speech is normal. Skin: Skin is warm and dry and no rashes or lesions are noted. Psychiatric: Cooperative, appropriate mood & affect, normal judgment. (Susanne Bowles) Medical Decision Making - Lab Data Result diagrams: 06/28/16 10:30 06/28/16 10:30 <Sebastian Anderson - Last Filed: 06/28/16 14:40> - Lab Data Result diagrams: 06/28/16 10:30 06/28/16 10:30 - Radiology Data Radiology results: report reviewed, image reviewed <Susanne Bowles - Last Filed: 06/28/16 14:58> - Medical Decision Making Patient reevaluated by myself, Dr. Anderson. Patient resting comfortably in bed but still complains of feeling nauseated. Patient states if he goes home he will just come back. Abdomen is soft and nontender. Patient was updated on results. Case discussed with practitioner Irene, who will admit for Dr. esqueda. (Sebastian Anderson) 31-year-old male presents with appears to be cyclic vomiting syndrome flareup. This time patient was given multiple doses of nausea medication patient continues to have abdominal pain and not feel well. This and will admit the patient to Dr. storm for continued care. (Susanne Bowles) - Lab Data Lab Results 06/28/16 06/28/16 Range/Units 10:30 10:30 WBC 13.6 H (3.8-10.6) k/uL RBC 5.66 (4.30-5.90) m/uL Hgb 16.6 (13.0-17.5) gm/dL Hct 47.6 (39.0-53.0) % MCV 84.1 (80.0-100.0) fL MCH 29.3 (25.0-35.0) pg MCHC 34.8 (31.0-37.0) g/dL RDW 13.0 (11.5-15.5) % Plt Count 289 (150-450) k/uL Neutrophils % 80 % Lymphocytes % 14 % Monocytes % 4 % Eosinophils % 1 % Basophils % 0 % Neutrophils # 10.9 H (1.3-7.7) k/uL Lymphocytes # 1.8 (1.0-4.8) k/uL Monocytes # 0.5 (0-1.0) k/uL Eosinophils # 0.2 (0-0.7) k/uL Basophils # 0.1 (0-0.2) k/uL Sodium 143 (137-145) mmol/L Potassium 4.2 (3.5-5.1) mmol/L Chloride 106 (98-107) mmol/L Carbon Dioxide 21 L (22-30) mmol/L Anion Gap 16 mmol/L BUN 14 (9-20) mg/dL Creatinine 0.80 (0.66-1.25) mg/dL Est GFR (MDRD) Af Amer >60 (>60 ml/min/1.73 sqM) Est GFR (MDRD) Non-Af >60 (>60 ml/min/1.73 sqM) Glucose 130 H (74-99) mg/dL Calcium 10.5 H (8.4-10.2) mg/dL Total Bilirubin 1.1 (0.2-1.3) mg/dL AST 44 (17-59) U/L ALT 87 H (21-72) U/L Alkaline Phosphatase 81 (38-126) U/L Total Protein 8.1 (6.3-8.2) g/dL Albumin 5.1 H (3.5-5.0) g/dL Amylase 64 (30-110) U/L Lipase 111 (23-300) U/L Disposition <Sebastian Anderson - Last Filed: 06/28/16 14:40> Time of Disposition: 14:58 Decision Date: 06/28/16 Decision Time: 14:58 <Susanne Bowles - Last Filed: 06/28/16 14:58> Clinical Impression: Intractable nausea and vomiting, Cyclic vomiting syndrome Disposition: ADMITTED IP TO THIS [facility] Condition: Stable Referrals: Sher Lewis MD [Primary Care Provider] - 1-2 days
[2016-06-28 11:10] LABS: ALT 87 U/L (21-72); AST 44 U/L (17-59); Alkaline Phosphatase 81 U/L (38-126); Amylase 64 U/L (30-110); Anion Gap 16 mmol/L; Blood Urea Nitrogen 14 mg/dL (9-20); Calcium 10.5 mg/dL (8.4-10.2); Carbon Dioxide 21 mmol/L (22-30); Chloride 106 mmol/L (98-107); Glucose 130 mg/dL (74-99); Non-African American GFR(MDRD) >60 (>60 ml/min/1.73 sqM); Sodium 143 mmol/L (137-145); Total Bilirubin 1.1 mg/dL (0.2-1.3); Total Protein 8.1 g/dL (6.3-8.2)
[2016-06-28 11:12] LABS: Potassium 4.2 mmol/L (3.5-5.1)
[2016-06-28 11:16] LABS: Basophils # (A) 0.1 k/uL (0-0.2); Basophils % (A) 0 %; CH 29.9; CHCM 35.7; Eosinophils # (A) 0.2 k/uL (0-0.7); Eosinophils % (A) 1 %; HCT 47.6 % (39.0-53.0); HGB 16.6 gm/dL (13.0-17.5); Luc # (Auto) 0.13; Luc % (Auto) 1; Lymphocytes # (A) 1.8 k/uL (1.0-4.8); Lymphocytes % (A) 14 %; MCH 29.3 pg (25.0-35.0); MCHC 34.8 g/dL (31.0-37.0); MCV 84.1 fL (80.0-100.0); Mean Platelet Volume 8.6; Monocytes # (A) 0.5 k/uL (0-1.0); Monocytes % (A) 4 %; Neutrophils # (A) 10.9 k/uL (1.3-7.7); Neutrophils % (A) 80 %; RBC 5.66 m/uL (4.30-5.90); WBC 13.6 k/uL (3.8-10.6); WBC (Perox) 12.98
--- NOTE | 2016-06-28 11:40 | XR ---
EXAMINATION TYPE: XR abdomen 2V DATE OF EXAM: 06/28/2016 11:34 AM COMPARISON: 05/11/2016 HISTORY: cyclic vomiting syndrome TECHNIQUE: One view abdominal series FINDINGS: The osseous structures are intact. The bowel gas pattern is nonspecific. Lung bases are clear. Post surgical change right upper quadrant. Nonspecific calcifications in the pelvis. IMPRESSION: 1. Nonspecific abdomen.
[2016-06-28] MEDS ORDERED: FAMOTIDINE 20 MG/2 ML VIAL IV STA (11:49)
[2016-06-28] MEDS ORDERED: ONDANSETRON 4 MG/2 ML VIAL IVP STA ×2 (11:49→12:55)
[2016-06-28] MEDS ORDERED: HYDROmorphone 1 MG/ML 1 ML SYRINGE IVP STA ×2 (11:49→12:55)
[2016-06-28] MEDS ORDERED: NALOXONE 0.4 MG/ML 1 ML VIAL IV PRN (14:58)
[2016-06-28] MEDS ORDERED: KETOROLAC 30 MG/ML 1 ML VIAL IVP PRN (14:58)
[2016-06-28] MEDS ORDERED: ONDANSETRON 4 MG/2 ML VIAL IVP PRN (14:58)
[2016-06-28] MEDS ORDERED: ALBUTEROL NEBULIZED 2.5 MG/3 ML INHALATION PRN (15:00)
[2016-06-28] MEDS: SODIUM CHLORIDE 0.9% 1,000 ML IV SCH ×2 (15:20→22:08)
[2016-06-28] MEDS: HYDROmorphone 1 MG/ML 1 ML SYRINGE IV PRN ×3 (16:07→22:42)
[2016-06-28] MEDS: LORazepam 2 MG/ML SYRINGE IV PRN ×2 (16:18→22:43)
[2016-06-28] MEDS: ONDANSETRON 4 MG/2 ML VIAL IVP PRN (19:52)
[2016-06-28] MEDS: PROMETHAZINE 25 MG TAB PO PRN (23:22)
[2016-06-29] MEDS: HYDROmorphone 1 MG/ML 1 ML SYRINGE IV PRN ×7 (02:09→20:13)
[2016-06-29] MEDS: LORazepam 2 MG/ML SYRINGE IV PRN ×2 (05:09→17:32)
[2016-06-29] MEDS: ONDANSETRON 4 MG/2 ML VIAL IVP PRN ×3 (05:20→17:28)
[2016-06-29] MEDS: PROMETHAZINE 25 MG TAB PO PRN ×3 (08:14→20:15)
[2016-06-29] MEDS: SODIUM CHLORIDE 0.9% 1,000 ML IV SCH ×2 (08:16→17:28)
[2016-06-29 08:57] VITALS: RESP 16
[2016-06-29] MEDS ORDERED: ENOXAPARIN 40 MG/0.4 ML SYRINGE SQ SCH (09:00)
[2016-06-29] MEDS ORDERED: LORATADINE 10 MG TAB PO SCH (09:00)
[2016-06-29] MEDS ORDERED: PANTOPRAZOLE 40 MG/10 ML VIAL IV SCH (09:00)
[2016-06-29 10:37] LABS: Basophils % (A) 1 %; CHCM 34.3; Eosinophils # (A) 0.1 k/uL (0-0.7); Eosinophils % (A) 2 %; HCT 43.9 % (39.0-53.0); HDW 2.61; HGB 14.7 gm/dL (13.0-17.5); Luc # (Auto) 0.16; Luc % (Auto) 2; Lymphocytes # (A) 1.9 k/uL (1.0-4.8); Lymphocytes % (A) 23 %; MCH 29.4 pg (25.0-35.0); MCHC 33.4 g/dL (31.0-37.0); MCV 87.8 fL (80.0-100.0); Mean Platelet Volume 7.7; Monocytes # (A) 0.5 k/uL (0-1.0); Monocytes % (A) 6 %; Neutrophils # (A) 5.5 k/uL (1.3-7.7); Neutrophils % (A) 68 %; RDW 13.2 % (11.5-15.5); WBC 8.1 k/uL (3.8-10.6); WBC (Perox) 8.15
[2016-06-29 11:05] LABS: ALT 78 U/L (21-72); AST 43 U/L (17-59); Alkaline Phosphatase 52 U/L (38-126); Anion Gap 10 mmol/L; Blood Urea Nitrogen 12 mg/dL (9-20); Calcium 8.9 mg/dL (8.4-10.2); Carbon Dioxide 25 mmol/L (22-30); Chloride 106 mmol/L (98-107); Glucose 89 mg/dL (74-99); Non-African American GFR(MDRD) >60 (>60 ml/min/1.73 sqM); Sodium 141 mmol/L (137-145); Total Bilirubin 1.7 mg/dL (0.2-1.3); Total Protein 6.8 g/dL (6.3-8.2)
[2016-06-29] MEDS ORDERED: SCOPOLAMINE 1.5MG/72HR PATCH TRANSDERM SCH (14:45)
[2016-06-29 15:02] VITALS: BMI 39.9
[2016-06-29 16:34] VITALS: TEMP 97.1
--- NOTE | 2016-06-29 17:54 | HP ---
DATE OF ADMISSION: 06/28/2016 PRESENTING COMPLAINT: Nausea, vomiting. HISTORY OF PRESENTING COMPLAINT: This is a 31-year-old patient who follows with Dr. Lewis whose chronic stable medical conditions include GERD, lower back pain. Patient has known cyclic vomiting syndrome, presents with nausea and vomiting, abdominal pain, not able to keep anything down. Patient was started on IV fluids. Lying in bed, tired, rundown. Denies any fever. REVIEW OF SYSTEMS: CONSTITUTIONAL: Tired. HEENT: None. RESPIRATORY: None. CARDIOVASCULAR: None. GASTROINTESTINAL: As above. GENITOURINARY: None. MUSCULOSKELETAL: Low back pain. DERMATOLOGICAL: None. HEMATOLOGICAL: None. LYMPHATICS: None. PSYCHIATRY: None. NEUROLOGICAL: None. PAST MEDICAL HISTORY: 1. Cyclical vomiting syndrome. 2. GERD. 3. Lower back pain. PAST SURGICAL HISTORY: 1. Appendectomy. 2. Cholecystectomy. SOCIAL HISTORY: Lives with his girlfriend, 2 children. [employer]. No smoking. Does sometimes use marijuana. FAMILY HISTORY: Reviewed; noncontributory to presentation. ALLERGIES: NONE. HOME MEDICATIONS: 1. Prilosec 20 mg a day. 2. Claritin 10 mg p.o. daily. 3. Motrin 800 mg p.o. daily p.r.n. 4. [place] 7.5 one tablet q.6 p.r.n. 5. Ventolin 2.5 q.6 p.r.n. PHYSICAL EXAMINATION: VITAL SIGNS ON PRESENTATION: Temperature 98, pulse 72, respiration 24, blood pressure 145/72, pulse ox 99% on room air. GENERAL APPEARANCE: Well built; BMI of 39.9. Sitting up, not in distress. EYES: Pupils equal. Conjunctivae normal. HEENT: Oral cavity with dry mucous membrane. NECK: JVD not raised. Mass not palpable. RESPIRATORY: Effort normal. Lungs are clear. CARDIOVASCULAR: First and second sounds normal. No edema. ABDOMEN: Soft. Minimal tenderness. Liver and spleen not palpable. LYMPHATIC: No lymph node palpable in neck or axillae. PSYCHIATRY: Alert and oriented x3. Mood and affect normal. NEUROLOGICAL: Pupils equal. Cranial nerves grossly intact. Power and sensation grossly intact. INVESTIGATIONS: White count 13.6, hemoglobin 16.6. Potassium 4.2. Abdominal x-ray: nonspecific abdomen. ASSESSMENT: 1. Acute flareup of cyclical vomiting syndrome. 2. Obesity; body mass index greater than 30. 3. Chronic low back pain from herniated disc. 4. Leukocytosis; no evidence of infection. 5. Hypercalcemia, probably from dehydration. PLAN: Patient was put on IV fluids. Patient was put on Phenergan and Zofran alternating. The vomiting had cut back but still having quite a bit of nausea; hence ( ) scopolamine patch. Care was discussed with the patient. Diet will be advanced as tolerated. At this point patient is on a liquid diet.
[2016-06-29 20:21] VITALS: BP 106/64; PULSE 81
[2016-06-30] MEDS ORDERED: PANTOPRAZOLE 40 MG TABLET PO SCH (09:00)
--- NOTE | 2016-07-29 20:03 | DS ---
DATE OF ADMISSION: 06/28/2016 DATE OF DISCHARGE: 06/29/2016 DATE LEFT AGAINST MEDICAL ADVICE 06/29/2016 FINAL DIAGNOSES: 1. Acute flare of cyclical vomiting syndrome. 2. Obesity, body mass index greater than 30. 3. Chronic low back pain from herniated disc. 4. Hypercalcemia probably from dehydration. HOSPITAL COURSE: This patient presented with flare-up of acute cyclical vomiting syndrome. Nausea, vomiting and abdominal pain. Receiving IV fluids. The patient started to get better with liquid diet. Patient decided to leave AGAINST MEDICAL ADVICE.
== END 2016-06-29 23:08 | disposition left against medical advice (07) ==
LOC: EC 09:31 → 4MS4W 14:41
PROVIDERS: ADMIT Hospitalist; ATTEND Hospitalist
DX: G43.A0 Cyclical vomiting, in migraine, not intractable (principal); E66.9 Obesity, unspecified; Z68.39 Body mass index [BMI] 39.0-39.9, adult; G89.29 Other chronic pain; M54.5 Low back pain; E83.52 Hypercalcemia; E86.0 Dehydration; D72.829 Elevated white blood cell count, unspecified; K21.9 Gastro-esophageal reflux disease without esophagitis; Z87.891 Personal history of nicotine dependence; Z83.3 Family history of diabetes mellitus; Z79.899 Other long term (current) drug therapy; F12.90 Cannabis use, unspecified, uncomplicated; J45.909 Unspecified asthma, uncomplicated
CPT/HCPCS: 99285; 96374 ×2; 96375 ×8; 96376 ×5; 96361 ×5; 96372 ×3; 36415; 80053 ×2; 82150; 83690; 85025 ×2; 74020; G0378 ×2; J2060 ×2; J1200; J2765; J2405 ×2; J1650; J1885; J1170 ×2; C9113

== ENCOUNTER 2016-09-08 07:14 | Observation (INO) | payer OTHER ==
[2016-09-08] MEDS ORDERED: SODIUM CHLORIDE 0.9% 1,000 ML IV STA (07:44)
[2016-09-08] MEDS ORDERED: ONDANSETRON 4 MG/2 ML VIAL IVP STA (07:44)
[2016-09-08] MEDS ORDERED: DIAZEPAM 5 MG/ML 2 ML SYRINGE IVP STA (07:45)
--- NOTE | 2016-09-08 07:46 | ED ---
General Adult HPI - General Chief complaint: Nausea/Vomiting/Diarrhea Stated complaint: Vomiting Time Seen by Provider: 09/08/16 07:30 Source: patient, RN notes reviewed Mode of arrival: ambulatory Limitations: no limitations - History of Present Illness Initial comments: This is a 31-year-old male with past medical history significant for cyclic vomiting syndrome. Patient states he woke up this morning and started vomiting immediately he has been unable to stop. Patient states he has some home medications but they are not working. Patient states he has no belly pain he has no diarrhea he denies any headache denies numbness weakness. Patient denies any difficulty breathing [place] of breath. Patient states this is typical of his cyclic vomiting syndrome. Patient does follow up with a GI doctor. - Related Data Home Medications Medication Instructions Recorded Confirmed Hydrocodone/Acetaminophen 1 tab PO Q6H PRN 08/14/15 09/08/16 [Hydrocodon-Acetaminoph 7.5-325] Loratadine [Claritin] 10 mg PO DAILY 05/11/16 09/08/16 Albuterol Nebulized [Ventolin 2.5 mg INHALATION RT-Q6H PRN 05/24/16 09/08/16 Nebulized] Ibuprofen [Motrin] 800 mg PO DAILY PRN 05/24/16 09/08/16 Previous Rx's Medication Instructions Recorded Omeprazole [PriLOSEC] 20 mg PO DAILY #10 capsule. 04/12/16 Allergies Allergy/AdvReac Type Severity Reaction Status Date / Time No Known Allergies Allergy Verified 09/08/16 07:37 Review of Systems ROS Statement: Those systems with pertinent positive or pertinent negative responses have been documented in the HPI. ROS Other: All systems not noted in ROS Statement are negative. Past Medical History Past Medical History: Asthma, GERD/Reflux Additional Past Medical History / Comment(s): cyclic vomiting syndrome, back pain '"RUPTURE DISC" History of Any Multi-Drug Resistant Organisms: None Reported Past Surgical History: Adenoidectomy, Appendectomy, Cholecystectomy Additional Past Surgical History / Comment(s): EGD, medical marijuana Past Anesthesia/Blood Transfusion Reactions: No Reported Reaction Past Psychological History: Anxiety Smoking Status: Former smoker Past Alcohol Use History: None Reported Past Drug Use History: None Reported - Past Family History Father Family Medical History: No Reported History Mother Family Medical History: Diabetes Mellitus Additional Family Medical History / Comment(s): severe food allergies General Exam - General Exam Comments Initial Comments: GENERAL: Patient is well-developed and well-nourished. Patient is nontoxic and well- hydrated and is in moderate distress. ENT: Neck is soft and supple. No significant lymphadenopathy is noted. Oropharynx is clear. Moist mucous membranes. Neck has full range of motion without eliciting any pain. EYES: The sclera were anicteric and conjunctiva were pink and moist. Extraocular movements were intact and pupils were equal round and reactive to light. Eyelids were unremarkable. PULMONARY: Unlabored respirations. Good breath sounds bilaterally. No audible rales rhonchi or wheezing was noted. CARDIOVASCULAR: There is a regular rate and rhythm without any murmurs gallops or rubs. ABDOMEN: Soft and nontender with normal bowel sounds. No palpable organomegaly was noted. There is no palpable pulsatile mass. SKIN: Skin is clear with no lesions or rashes and otherwise unremarkable. NEUROLOGIC: Patient is alert and oriented x3. Cranial nerves II through XII are grossly intact. Motor and sensory are also intact. Normal speech, volume and content. Symmetrical smile. MUSCULOSKELETAL: Normal extremities with adequate strength and full range of motion. No lower extremity swelling or edema. No calf tenderness. LYMPHATICS: No significant lymphadenopathy is noted PSYCHIATRIC: Normal psychiatric evaluation. Normal interpersonal interactions appears functionally intact in deals appropriately with others. No signs of depression. No signs of anxiety. Limitations: no limitations Course Vital Signs 09/08/16 09/08/16 07:27 08:09 Pulse Rate 70 53 L Respiratory 20 20 Rate Blood Pressure 143/86 O2 Sat by Pulse 99 100 Oximetry Medical Decision Making - Medical Decision Making Patient continues to ask for Dilaudid. I spoke with Dr. Matthew she did not indicate Dilaudid was indicated so I will admit the patient and will see the patient as an inpatient. She does continue to vomit. - Lab Data Result diagrams: 09/08/16 07:52 09/08/16 07:52 Lab Results 09/08/16 09/08/16 Range/Units 07:52 07:52 WBC 9.8 (3.8-10.6) k/uL RBC 5.50 (4.30-5.90) m/uL Hgb 16.5 (13.0-17.5) gm/dL Hct 46.4 (39.0-53.0) % MCV 84.4 (80.0-100.0) fL MCH 30.0 (25.0-35.0) pg MCHC 35.5 (31.0-37.0) g/dL RDW 13.2 (11.5-15.5) % Plt Count 261 (150-450) k/uL Neutrophils % 63 % Lymphocytes % 29 % Monocytes % 5 % Eosinophils % 2 % Basophils % 0 % Neutrophils # 6.2 (1.3-7.7) k/uL Lymphocytes # 2.9 (1.0-4.8) k/uL Monocytes # 0.4 (0-1.0) k/uL Eosinophils # 0.2 (0-0.7) k/uL Basophils # 0.0 (0-0.2) k/uL Sodium 143 (137-145) mmol/L Potassium 3.9 (3.5-5.1) mmol/L Chloride 110 H (98-107) mmol/L Carbon Dioxide 18 L (22-30) mmol/L Anion Gap 15 mmol/L BUN 14 (9-20) mg/dL Creatinine 0.87 (0.66-1.25) mg/dL Est GFR (MDRD) Af Amer >60 (>60 ml/min/1.73 sqM) Est GFR (MDRD) Non-Af >60 (>60 ml/min/1.73 sqM) Glucose 118 H (74-99) mg/dL Calcium 10.0 (8.4-10.2) mg/dL Total Bilirubin 1.2 (0.2-1.3) mg/dL AST 26 (17-59) U/L ALT 61 (21-72) U/L Alkaline Phosphatase 80 (38-126) U/L Total Protein 7.2 (6.3-8.2) g/dL Albumin 4.7 (3.5-5.0) g/dL Amylase 54 (30-110) U/L Lipase 170 (23-300) U/L Disposition Clinical Impression: Cyclic vomiting syndrome Disposition: ADMITTED IP TO THIS [facility] Referrals: Sher Lewis MD [Primary Care Provider] - 1-2 days Time of Disposition: 09:28
[2016-09-08 08:23] LABS: Basophils % (A) 0 %; CH 30.1; CHCM 35.9; Eosinophils # (A) 0.2 k/uL (0-0.7); Eosinophils % (A) 2 %; HCT 46.4 % (39.0-53.0); HDW 2.77; HGB 16.5 gm/dL (13.0-17.5); Luc # (Auto) 0.18; Luc % (Auto) 2; Lymphocytes # (A) 2.9 k/uL (1.0-4.8); Lymphocytes % (A) 29 %; MCHC 35.5 g/dL (31.0-37.0); MCV 84.4 fL (80.0-100.0); Mean Platelet Volume 9.6; Monocytes # (A) 0.4 k/uL (0-1.0); Monocytes % (A) 5 %; Neutrophils # (A) 6.2 k/uL (1.3-7.7); Neutrophils % (A) 63 %; RDW 13.2 % (11.5-15.5); WBC 9.8 k/uL (3.8-10.6); WBC (Perox) 9.51
[2016-09-08 08:26] LABS: ALT 61 U/L (21-72); AST 26 U/L (17-59); Alkaline Phosphatase 80 U/L (38-126); Amylase 54 U/L (30-110); Anion Gap 15 mmol/L; Blood Urea Nitrogen 14 mg/dL (9-20); Carbon Dioxide 18 mmol/L (22-30); Chloride 110 mmol/L (98-107); Glucose 118 mg/dL (74-99); Non-African American GFR(MDRD) >60 (>60 ml/min/1.73 sqM); Potassium 3.9 mmol/L (3.5-5.1); Sodium 143 mmol/L (137-145); Total Bilirubin 1.2 mg/dL (0.2-1.3); Total Protein 7.2 g/dL (6.3-8.2)
[2016-09-08] MEDS ORDERED: PANTOPRAZOLE 40 MG/10 ML VIAL IVP STA (08:40)
[2016-09-08] MEDS ORDERED: PROMETHAZINE INJ 25 MG/ML 1 ML VIAL IM STA (08:40)
[2016-09-08] MEDS ORDERED: SODIUM CHLORIDE 0.9% 1,000 ML IV ONE (09:28)
[2016-09-08] MEDS ORDERED: ONDANSETRON 4 MG/2 ML VIAL IVP PRN (09:30)
[2016-09-08] MEDS ORDERED: SCOPOLAMINE 1.5MG/72HR PATCH TRANSDERM STA (09:47)
--- NOTE | 2016-09-08 11:30 | P.HPIM ---
History of Present Illness H&P Date: 09/08/16 Chief Complaint: Nausea vomiting History of presenting complaint: This is a 31-year-old patient of Dr. Garcia. Chronic stable medical conditions include GERD, lower back pain. Patient's had multiple admissions for cyclical vomiting syndrome. Patient presents with increasing nausea vomiting and retching diffuse abdominal pain states not able to keep any food down. States his back pain is bothering him and he wants IV Dilaudid. Denies any fever. No diarrhea. 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 EYES: [Pupils equal. Conjunctiva jay]l. HEENT: [External appearance of nose and ears normal, oral cavity grossly normal] . NECK: [JVD not raised; masses not palpable]. HEART: [First and second heart sounds are normal; no edema]. LUNGS:[ Respiratory rate normal; clear to auscultation]. ABDOMEN: [Soft, nontender, liver spleen not palpable, no masses palpable]. LYMPHATICS: [No lymph nodes palpable in the axilla and neck]. PSYCH: [Alert and oriented x3; mood and affect anxious. NEUROLOGICAL: [Cranial nerves grossly intact; no facial asymmetry, power and sensation grossly intact]. MUSCULOSKELETAL: No tenderness in the lumbar spine Investigations White count 9.8, hemoglobin 16.5, potassium 3.9,. BUN/Crit is normal Assessment: -Acute flare of CYCLICAL vomiting syndrome, with no Evidence of infection -Obesity BMI 34.6 -Chronic low back pain from herniated disc Plan: Patient be put on IV fluids, given IV antiemetics, heating pad for chronic low back pain, scopolamine patch, IV Reglan. Past Medical History Past Medical History: Asthma, GERD/Reflux Additional Past Medical History / Comment(s): cyclic vomiting syndrome, back pain '"RUPTURE DISC" History of Any Multi-Drug Resistant Organisms: None Reported Past Surgical History: Adenoidectomy, Appendectomy, Cholecystectomy Additional Past Surgical History / Comment(s): EGD, medical marijuana Past Anesthesia/Blood Transfusion Reactions: No Reported Reaction Past Psychological History: Anxiety Additional Psychological History / Comment(s): PT LIVES WITH HIS GIRL FRIEND AND 2 KIDS IN A SINGLE STORY HOME THAT HAS 2 STEPS TO GET INTO. 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 NO SERVICE IN BACKGROUND. NO PETS, NO MEDICAL EQUIPMENT. Smoking Status: Former smoker Past Alcohol Use History: None Reported Additional Past Alcohol Use History / Comment(s): Pt states he smoked [id number], QUIT 2007. Past Drug Use History: None Reported Additional Drug Use History / Comment(s): daily MEDICAL marijuana use(2-3 TIMES A DAY) - Past Family History Father Family Medical History: No Reported History Mother Family Medical History: Diabetes Mellitus Additional Family Medical History / Comment(s): severe food allergies Medications and Allergies Home Medications Medication Instructions Recorded Confirmed Type Hydrocodone/Acetaminophen 1 tab PO Q6H PRN 08/14/15 09/08/16 History [Hydrocodon-Acetaminoph 7.5-325] Loratadine [Claritin] 10 mg PO DAILY 05/11/16 09/08/16 History Albuterol Nebulized [Ventolin 2.5 mg INHALATION RT-Q6H PRN 05/24/16 09/08/16 History Nebulized] Ibuprofen [Motrin] 800 mg PO DAILY PRN 05/24/16 09/08/16 History Allergies Allergy/AdvReac Type Severity Reaction Status Date / Time No Known Allergies Allergy Verified 09/08/16 07:37 Physical Exam Vitals: Results CBC & Chem 7: 09/08/16 07:52 09/08/16 07:52
[2016-09-08] MEDS: KETOROLAC 30 MG/ML 1 ML VIAL IVP SCH ×2 (11:36→18:50)
[2016-09-08] MEDS: METOCLOPRAMIDE 5 MG/ML 2 ML VIAL IVP SCH ×2 (12:55→18:48)
[2016-09-08] MEDS: ENOXAPARIN 40 MG/0.4 ML SYRINGE SQ SCH ×2 (12:55→18:46)
[2016-09-08] MEDS: HYDROmorphone 1 MG/ML 1 ML SYRINGE IVP PRN ×3 (14:16→23:10)
[2016-09-08] MEDS: LACTATED RINGERS 1,000 ML IV SCH ×2 (14:19→19:57)
[2016-09-08 23:23] VITALS: PULSE 56
[2016-09-09] MEDS: KETOROLAC 30 MG/ML 1 ML VIAL IVP SCH ×3 (04:34→13:35)
[2016-09-09] MEDS: METOCLOPRAMIDE 5 MG/ML 2 ML VIAL IVP SCH ×3 (04:35→13:36)
[2016-09-09] MEDS: HYDROmorphone 1 MG/ML 1 ML SYRINGE IVP PRN (05:59)
[2016-09-09 07:46] LABS: Anion Gap 11 mmol/L; Blood Urea Nitrogen 9 mg/dL (9-20); Calcium 9.4 mg/dL (8.4-10.2); Carbon Dioxide 24 mmol/L (22-30); Chloride 107 mmol/L (98-107); Glucose 82 mg/dL (74-99); Non-African American GFR(MDRD) >60 (>60 ml/min/1.73 sqM); Potassium 3.8 mmol/L (3.5-5.1); Sodium 142 mmol/L (137-145)
[2016-09-09 08:43] VITALS: BP 111/51; RESP 18; TEMP 97.6
[2016-09-09] MEDS: LACTATED RINGERS 1,000 ML IV SCH ×2 (09:28→13:29)
[2016-09-09] MEDS: ENOXAPARIN 40 MG/0.4 ML SYRINGE SQ SCH (13:36)
--- NOTE | 2016-09-13 12:15 | DS ---
DATE OF ADMISSION: 09/09/2016 DATE OF DISCHARGE: 09/09/2016 FINAL DIAGNOSES: 1. Acute flare up cyclical vomiting syndrome. 2. Obesity, body mass index of 34.6. 3. Chronic low back pain from herniated disc. HOSPITAL COURSE: This patient presented with exacerbation of cyclical vomiting syndrome. Responded well to IV fluids, scopolamine patch, Reglan. By the time of discharge, tolerating his diet, feeling back to his normal self. On examination, abdomen soft, nontender. DISCHARGE MEDICATIONS: 1. [place] 7.5 one tablet q.6 p.r.n. 2. Prilosec 20 mg a day. 3. Claritin 10 mg a day. 4. Ventolin 2.5 q.6 p.r.n. 5. Motrin 800 mg q.6 p.r.n. Follow with Dr. Lewis in 2 days. DIET: Soft. On exam, abdomen soft, nontender. MTDD
== END 2016-09-09 15:19 | disposition home or self-care (01) ==
LOC: EC 07:14 → 3OBS 09:28
PROVIDERS: ADMIT Hospitalist; ATTEND Hospitalist
DX: G43.A0 Cyclical vomiting, in migraine, not intractable (principal); Z68.34 Body mass index [BMI] 34.0-34.9, adult; E66.9 Obesity, unspecified; G89.29 Other chronic pain; M54.5 Low back pain; Z79.1 Long term (current) use of non-steroidal anti-inflammatories (NSAID); Z79.899 Other long term (current) drug therapy; K21.9 Gastro-esophageal reflux disease without esophagitis; J45.909 Unspecified asthma, uncomplicated; Z87.891 Personal history of nicotine dependence
CPT/HCPCS: 96375 ×5; 96376 ×3; 96361 ×2; 96372 ×4; 96374 ×2; 99284 ×2; 36415; 80053; 80048; 82150; 83690; 85025; G0378 ×2; J2550; J3360; J2405; J1650 ×2; J1885 ×2; J1170 ×2; C9113

== ENCOUNTER 2016-09-10 07:21 | Emergency (ER) | payer OTHER ==
[2016-09-10] MEDS ORDERED: ONDANSETRON 4 MG/2 ML VIAL IVP STA (08:06)
[2016-09-10] MEDS ORDERED: HYDROmorphone 1 MG/ML 1 ML SYRINGE IVP STA (08:06)
[2016-09-10] MEDS ORDERED: SODIUM CHLORIDE 0.9% 2,000 ML IV STA (08:06)
[2016-09-10] MEDS ORDERED: diphenhydrAMINE 50 MG/ML 1 ML VIAL IVP STA (08:06)
[2016-09-10 08:21] LABS: Basophils # (A) 0.1 k/uL (0-0.2); Basophils % (A) 1 %; CH 30.7; CHCM 35.6; Eosinophils # (A) 0.1 k/uL (0-0.7); Eosinophils % (A) 1 %; HCT 46.6 % (39.0-53.0); HDW 2.71; HGB 15.9 gm/dL (13.0-17.5); Luc # (Auto) 0.16; Luc % (Auto) 1; Lymphocytes # (A) 3.6 k/uL (1.0-4.8); Lymphocytes % (A) 28 %; MCH 29.6 pg (25.0-35.0); MCHC 34.1 g/dL (31.0-37.0); MCV 86.7 fL (80.0-100.0); Mean Platelet Volume 10.9; Monocytes # (A) 0.6 k/uL (0-1.0); Monocytes % (A) 5 %; Neutrophils # (A) 8.3 k/uL (1.3-7.7); Neutrophils % (A) 65 %; RBC 5.37 m/uL (4.30-5.90); RDW 14.3 % (11.5-15.5); WBC 12.8 k/uL (3.8-10.6); WBC (Perox) 11.85
[2016-09-10 08:33] LABS: ALT 75 U/L (21-72); AST 42 U/L (17-59); Alkaline Phosphatase 77 U/L (38-126); Amylase 45 U/L (30-110); Anion Gap 17 mmol/L; Blood Urea Nitrogen 11 mg/dL (9-20); Calcium 9.9 mg/dL (8.4-10.2); Carbon Dioxide 17 mmol/L (22-30); Chloride 110 mmol/L (98-107); Glucose 108 mg/dL (74-99); Non-African American GFR(MDRD) >60 (>60 ml/min/1.73 sqM); Potassium 3.8 mmol/L (3.5-5.1); Sodium 144 mmol/L (137-145); Total Bilirubin 1.1 mg/dL (0.2-1.3); Total Protein 6.9 g/dL (6.3-8.2)
[2016-09-10] MEDS ORDERED: LORazepam 2 MG/ML SYRINGE IV STA ×2 (08:51→08:55)
[2016-09-10] MEDS ORDERED: PROMETHAZINE INJ 25 MG in SODIUM CHLORIDE 0.9% 50 ML IVPB STA (08:51)
[2016-09-10] MEDS ORDERED: FAMOTIDINE 20 MG/2 ML VIAL IV STA (08:53)
--- NOTE | 2016-09-10 08:54 | ED ---
Nausea/Vomiting/Diarrhea HPI - General Chief complaint: Nausea/Vomiting/Diarrhea Stated complaint: vomiting Time Seen by Provider: 09/10/16 08:06 Source: patient, RN notes reviewed Mode of arrival: ambulatory Limitations: no limitations - History of Present Illness Initial comments: 31-year-old male presented emergency Department chief complaint nausea vomiting. Patient has cyclic vomiting. Patient describe the hospital yesterday states he woke up this morning vomiting. Patient states he came directly to the emergency department. Patient states he feels like his normal symptoms. Patient states she just feels very nauseated. Patient also complains of chronic pain in which she has back pain from herniated disc. Patient states that he has diffuse abdominal discomfort which is normal for his vomiting. Patient denies any fever or chills. Denies any chest pain, shortness breath, headache or dizziness. - Related Data Home Medications Medication Instructions Recorded Confirmed Hydrocodone/Acetaminophen 1 tab PO Q6H PRN 08/14/15 09/10/16 [Hydrocodon-Acetaminoph 7.5-325] Loratadine [Claritin] 10 mg PO DAILY 05/11/16 09/10/16 Albuterol Nebulized [Ventolin 2.5 mg INHALATION RT-Q6H PRN 05/24/16 09/10/16 Nebulized] Ibuprofen [Motrin] 800 mg PO DAILY PRN 05/24/16 09/10/16 Previous Rx's Medication Instructions Recorded Omeprazole [PriLOSEC] 20 mg PO DAILY #10 capsule. 04/12/16 Metoclopramide [Reglan] 10 mg PO TID PRN #15 tab 09/10/16 Ondansetron Odt [Zofran Odt] 8 mg PO Q8HR PRN #14 tab 09/10/16 Allergies Allergy/AdvReac Type Severity Reaction Status Date / Time No Known Allergies Allergy Verified 09/10/16 10:35 Review of Systems ROS Statement: Those systems with pertinent positive or pertinent negative responses have been documented in the HPI. ROS Other: All systems not noted in ROS Statement are negative. Past Medical History Past Medical History: Asthma, GERD/Reflux Additional Past Medical History / Comment(s): cyclic vomiting syndrome, back pain '"RUPTURE DISC" History of Any Multi-Drug Resistant Organisms: None Reported Past Surgical History: Adenoidectomy, Appendectomy, Cholecystectomy Additional Past Surgical History / Comment(s): EGD, medical marijuana Past Anesthesia/Blood Transfusion Reactions: No Reported Reaction Past Psychological History: Anxiety Smoking Status: Former smoker Past Alcohol Use History: None Reported Past Drug Use History: None Reported - Past Family History Father Family Medical History: No Reported History Mother Family Medical History: Diabetes Mellitus Additional Family Medical History / Comment(s): severe food allergies General Exam Limitations: no limitations General appearance: alert, in no apparent distress, obese Respiratory exam: Present: normal lung sounds bilaterally. Absent: respiratory distress, wheezes, rales, rhonchi, stridor Cardiovascular Exam: Present: regular rate, normal rhythm, normal heart sounds. Absent: systolic murmur, diastolic murmur, rubs, gallop, clicks GI/Abdominal exam: Present: soft, tenderness ([id number] diffuse), normal bowel sounds. Absent: distended, guarding, rebound, rigid Neurological exam: Present: alert, oriented X3, CN II-XII intact Skin exam: Present: warm, dry, intact, normal color. Absent: rash Course Vital Signs 09/10/16 09/10/16 07:24 10:28 Temperature 98.2 F Pulse Rate 65 56 L Respiratory 24 17 Rate Blood Pressure 165/75 150/95 O2 Sat by Pulse 96 97 Oximetry Medical Decision Making - Medical Decision Making 31-year-old male presented for cyclic vomiting symptoms. Patient was adequately hydrated in the emergency Department given multiple medications. Patient has not had any vomiting and 2 hours. Patient we discharged with antiemetics. Return parameters were discussed. I did advise him to follow up with his primary care physician and to quit smoking marijuana. - Lab Data Result diagrams: 09/10/16 07:42 09/10/16 07:42 Lab Results 09/10/16 09/10/16 09/10/16 Range/Units 07:42 07:42 09:02 WBC 12.8 H (3.8-10.6) k/uL RBC 5.37 (4.30-5.90) m/uL Hgb 15.9 (13.0-17.5) gm/dL Hct 46.6 (39.0-53.0) % MCV 86.7 (80.0-100.0) fL MCH 29.6 (25.0-35.0) pg MCHC 34.1 (31.0-37.0) g/dL RDW 14.3 (11.5-15.5) % Plt Count 279 (150-450) k/uL Neutrophils % 65 % Lymphocytes % 28 % Monocytes % 5 % Eosinophils % 1 % Basophils % 1 % Neutrophils # 8.3 H (1.3-7.7) k/uL Lymphocytes # 3.6 (1.0-4.8) k/uL Monocytes # 0.6 (0-1.0) k/uL Eosinophils # 0.1 (0-0.7) k/uL Basophils # 0.1 (0-0.2) k/uL Sodium 144 (137-145) mmol/L Potassium 3.8 (3.5-5.1) mmol/L Chloride 110 H (98-107) mmol/L Carbon Dioxide 17 L (22-30) mmol/L Anion Gap 17 mmol/L BUN 11 (9-20) mg/dL Creatinine 0.97 (0.66-1.25) mg/dL Est GFR (MDRD) Af Amer >60 (>60 ml/min/1.73 sqM) Est GFR (MDRD) Non-Af >60 (>60 ml/min/1.73 sqM) Glucose 108 H (74-99) mg/dL Calcium 9.9 (8.4-10.2) mg/dL Total Bilirubin 1.1 (0.2-1.3) mg/dL AST 42 (17-59) U/L ALT 75 H (21-72) U/L Alkaline Phosphatase 77 (38-126) U/L Total Protein 6.9 (6.3-8.2) g/dL Albumin 4.4 (3.5-5.0) g/dL Amylase 45 (30-110) U/L Lipase 171 (23-300) U/L Urine Color Yellow Urine Appearance Clear (Clear) Urine pH 5.0 (5.0-8.0) Ur Specific [place] 1.010 (1.001-1.035) Urine Protein Negative (Negative) Urine Glucose (UA) Negative (Negative) Urine Ketones 2+ H (Negative) Urine Blood Negative (Negative) Urine Nitrite Negative (Negative) Urine Bilirubin Negative (Negative) Urine Urobilinogen <2.0 (<2.0) mg/dL Ur Leukocyte Esterase Negative (Negative) Disposition Clinical Impression: Cyclic vomiting syndrome, Nausea and vomiting Disposition: HOME SELF-CARE Condition: Stable Instructions: Acute Nausea and Vomiting (ED) Additional Instructions: Please return to the Emergency Department if symptoms worsen or any other concerns. Prescriptions: Metoclopramide [Reglan] 10 mg PO TID PRN #15 tab PRN Reason: GERD Ondansetron Odt [Zofran Odt] 8 mg PO Q8HR PRN #14 tab PRN Reason: Nausea Referrals: Sher Lewis MD [Primary Care Provider] - 1-2 days Time of Disposition: 10:58
[2016-09-10 09:17] LABS: Appearance,Urine Clear (Clear); Bilirubin,Urine Negative (Negative); Glucose,Urine (UA) Negative (Negative); Ketones,Urine 2+ (Negative); Leukocyte Esterase,Urine Negative (Negative); Nitrite,Urine Negative (Negative); Protein,Urine Negative (Negative); UA Billing (MACRO vs. MICRO) CHEM; Urobilinogen,Urine <2.0 mg/dL (<2.0)
[2016-09-10] MEDS ORDERED: KETOROLAC 30 MG/ML 1 ML VIAL IVP STA (09:29)
[2016-09-10] MEDS ORDERED: MAG HYDROX/AL HYDROX/SIMETH 30 ML, HYOSCYAMINE ELIXIR 10 ML, CIMETIDINE HCL 300 MG, LID... PO STA ×4 (09:29)
[2016-09-10] MEDS ORDERED: METOCLOPRAMIDE 5 MG/ML 2 ML VIAL IVP STA (10:54)
[2016-09-10 11:04] VITALS: BP 154/95; PULSE 70; RESP 16; TEMP 97.3
== END 2016-09-10 11:19 | disposition home or self-care (01) ==
LOC: EC 07:21
DX: G43.A0 Cyclical vomiting, in migraine, not intractable (principal); M54.9 Dorsalgia, unspecified; Z87.891 Personal history of nicotine dependence; Z79.899 Other long term (current) drug therapy
CPT/HCPCS: 36415; 80053; 82150; 83690; 85025; 81003; 99284; 96374; 96375 ×6; 96361 ×2; J2060; J1200; J2550; J2405; J1885; J1170

== ENCOUNTER 2016-09-29 08:03 | Emergency (ER) | payer OTHER ==
[2016-09-29] MEDS ORDERED: METOCLOPRAMIDE 5 MG/ML 2 ML VIAL IVP STA (08:23)
[2016-09-29] MEDS ORDERED: SODIUM CHLORIDE 0.9% 1,000 ML IV STA (08:23)
[2016-09-29] MEDS ORDERED: FAMOTIDINE 20 MG/2 ML VIAL IV STA (08:24)
[2016-09-29] MEDS ORDERED: DIAZEPAM 5 MG/ML 2 ML SYRINGE IVP STA (08:24)
--- NOTE | 2016-09-29 08:28 | ED ---
General Adult HPI - General Chief complaint: Dizziness Stated complaint: dizziness,vomiting, weakness Time Seen by Provider: 09/29/16 08:13 Source: patient, family, RN notes reviewed Mode of arrival: wheelchair Limitations: no limitations - History of Present Illness Initial comments: 31-year-old male presents to the emergency Department chief complaint of dizziness. Patient states he woke up this morning in the room is just spinning. He states that his right ear has been hurting on and off for the past few days. Patient states he also feels as if he is drunk. Patient states yesterday grabbed the stokes for support. Patient states this makes him have vomiting as well. Patient denies any ear pain any cough cold or runny nose lately. Patient states he's never had this before. Denies any falls traumas or injuries. Patient states that he just cannot focus his eyes everything just keeps spinning. Patient states besides cyclic vomiting syndrome he has no other health history. Denies any other symptoms at this time. Patient denies any recent fever, chills, shortness of breath, chest pain, back pain, abdominal pain, nausea vomiting, numbness or tingling, dysuria or hematuria, constipation or diarrhea, headaches or visual changes, or any other current symptoms. - Related Data Home Medications Medication Instructions Recorded Confirmed Hydrocodone/Acetaminophen 1 tab PO Q6H PRN 08/14/15 09/29/16 [Hydrocodon-Acetaminoph 7.5-325] Loratadine [Claritin] 10 mg PO DAILY 05/11/16 09/29/16 Albuterol Nebulized [Ventolin 2.5 mg INHALATION RT-Q6H PRN 05/24/16 09/29/16 Nebulized] Ibuprofen [Motrin] 800 mg PO DAILY PRN 05/24/16 09/29/16 Promethazine Suppository 12.5 mg RECTAL DAILY PRN 09/29/16 09/29/16 [Phenergan] Previous Rx's Medication Instructions Recorded Omeprazole [PriLOSEC] 20 mg PO DAILY #10 capsule. 04/12/16 Ondansetron Odt [Zofran Odt] 8 mg PO Q8HR PRN #14 tab 09/10/16 Amoxicillin/Potassium Clav 1 tab PO Q12HR #20 tab 09/29/16 [Augmentin 875-125 Tablet] Meclizine [Antivert] 12.5 mg PO Q6H #20 tablet 09/29/16 Ondansetron Odt [Zofran ODT] 4 mg PO Q8HR PRN #20 tab 09/29/16 Allergies Allergy/AdvReac Type Severity Reaction Status Date / Time No Known Allergies Allergy Verified 09/29/16 09:05 Review of Systems ROS Statement: Those systems with pertinent positive or pertinent negative responses have been documented in the HPI. ROS Other: All systems not noted in ROS Statement are negative. Past Medical History Past Medical History: Asthma, GERD/Reflux Additional Past Medical History / Comment(s): cyclic vomiting syndrome, back pain '"RUPTURE DISC" History of Any Multi-Drug Resistant Organisms: None Reported Past Surgical History: Adenoidectomy, Appendectomy, Cholecystectomy Additional Past Surgical History / Comment(s): EGD, medical marijuana Past Anesthesia/Blood Transfusion Reactions: No Reported Reaction Past Psychological History: Anxiety Smoking Status: Former smoker Past Alcohol Use History: None Reported Past Drug Use History: None Reported - Past Family History Father Family Medical History: No Reported History Mother Family Medical History: Diabetes Mellitus Additional Family Medical History / Comment(s): severe food allergies General Exam Limitations: no limitations General appearance: alert, in distress (vomiting on exam) Head exam: Present: atraumatic, normocephalic, normal inspection Eye exam: Present: normal appearance, PERRL, EOMI. Absent: scleral icterus, conjunctival injection, periorbital swelling ENT exam: Present: normal exam, mucous membranes moist. Absent: TM's normal bilaterally (Patient appears to have an erythematous right tympanic membrane) Neck exam: Present: normal inspection. Absent: tenderness, meningismus, lymphadenopathy Respiratory exam: Present: normal lung sounds bilaterally. Absent: respiratory distress, wheezes, rales, rhonchi, stridor Cardiovascular Exam: Present: regular rate, normal rhythm, normal heart sounds. Absent: systolic murmur, diastolic murmur, rubs, gallop, clicks Neurological exam: Present: alert, oriented X3, CN II-XII intact, reflexes normal. Absent: motor sensory deficit Psychiatric exam: Present: normal affect, normal mood Skin exam: Present: warm, dry, intact, normal color. Absent: rash Course Vital Signs 09/29/16 09/29/16 08:06 09:41 Temperature 96.0 F L 96.7 F L Pulse Rate 81 83 Respiratory 18 19 Rate Blood Pressure 130/69 112/59 O2 Sat by Pulse 100 99 Oximetry Medical Decision Making - Medical Decision Making 31-year-old male presents to the emergency department with a chief complaint of dizziness. At this time patient does appear to right otitis media. This probably brought on the patient's vertigo. We'll start her antibiotics and Antivert for home. We discussed follow-up and return parameters all the patient 's questions. He stated he understood. With this plan. All questions have been answered. He will be discharged home at this time. - Lab Data Result diagrams: 09/29/16 08:25 09/29/16 08:25 Lab Results 09/29/16 09/29/16 Range/Units 08:25 08:25 WBC 9.5 (3.8-10.6) k/uL RBC 5.80 (4.30-5.90) m/uL Hgb 17.4 (13.0-17.5) gm/dL Hct 50.9 (39.0-53.0) % MCV 87.8 (80.0-100.0) fL MCH 29.9 (25.0-35.0) pg MCHC 34.1 (31.0-37.0) g/dL RDW 14.6 (11.5-15.5) % Plt Count 318 (150-450) k/uL Neutrophils % 54 % Lymphocytes % 36 % Monocytes % 5 % Eosinophils % 3 % Basophils % 0 % Neutrophils # 5.1 (1.3-7.7) k/uL Lymphocytes # 3.5 (1.0-4.8) k/uL Monocytes # 0.4 (0-1.0) k/uL Eosinophils # 0.3 (0-0.7) k/uL Basophils # 0.0 (0-0.2) k/uL Sodium 145 (137-145) mmol/L Potassium 4.2 (3.5-5.1) mmol/L Chloride 108 H (98-107) mmol/L Carbon Dioxide 23 (22-30) mmol/L Anion Gap 14 mmol/L BUN 12 (9-20) mg/dL Creatinine 0.85 (0.66-1.25) mg/dL Est GFR (MDRD) Af Amer >60 (>60 ml/min/1.73 sqM) Est GFR (MDRD) Non-Af >60 (>60 ml/min/1.73 sqM) Glucose 125 H (74-99) mg/dL Calcium 10.4 H (8.4-10.2) mg/dL Total Bilirubin 0.9 (0.2-1.3) mg/dL AST 35 (17-59) U/L ALT 59 (21-72) U/L Alkaline Phosphatase 89 (38-126) U/L Total Protein 8.0 (6.3-8.2) g/dL Albumin 5.0 (3.5-5.0) g/dL Disposition Clinical Impression: Right otitis media, Vertigo Disposition: HOME SELF-CARE Condition: Stable Instructions: Vertigo (ED), Otitis Media (ED) Additional Instructions: Please use medication as discussed. Please follow up with family doctor if symptoms have not improved over the next two days. Please return to the emergency room if your symptoms increase or worsen or for any other concerns. Prescriptions: Amoxicillin/Potassium Clav [Augmentin 875-125 Tablet] 1 tab PO Q12HR #20 tab Meclizine [Antivert] 12.5 mg PO Q6H #20 tablet Ondansetron Odt [Zofran ODT] 4 mg PO Q8HR PRN #20 tab PRN Reason: Nausea Referrals: Sher Lewis MD [Primary Care Provider] - 1-2 days Time of Disposition: 09:51
[2016-09-29 08:42] LABS: Basophils % (A) 0 %; CHCM 35.4; Eosinophils # (A) 0.3 k/uL (0-0.7); Eosinophils % (A) 3 %; HCT 50.9 % (39.0-53.0); HGB 17.4 gm/dL (13.0-17.5); Luc # (Auto) 0.21; Luc % (Auto) 2; Lymphocytes # (A) 3.5 k/uL (1.0-4.8); Lymphocytes % (A) 36 %; MCH 29.9 pg (25.0-35.0); MCHC 34.1 g/dL (31.0-37.0); MCV 87.8 fL (80.0-100.0); Mean Platelet Volume 9.4; Monocytes # (A) 0.4 k/uL (0-1.0); Monocytes % (A) 5 %; Neutrophils # (A) 5.1 k/uL (1.3-7.7); Neutrophils % (A) 54 %; RDW 14.6 % (11.5-15.5); WBC 9.5 k/uL (3.8-10.6)
[2016-09-29 08:52] LABS: ALT 59 U/L (21-72); AST 35 U/L (17-59); Alkaline Phosphatase 89 U/L (38-126); Anion Gap 14 mmol/L; Blood Urea Nitrogen 12 mg/dL (9-20); Calcium 10.4 mg/dL (8.4-10.2); Carbon Dioxide 23 mmol/L (22-30); Chloride 108 mmol/L (98-107); Glucose 125 mg/dL (74-99); Non-African American GFR(MDRD) >60 (>60 ml/min/1.73 sqM); Potassium 4.2 mmol/L (3.5-5.1); Sodium 145 mmol/L (137-145); Total Bilirubin 0.9 mg/dL (0.2-1.3)
--- NOTE | 2016-09-29 09:11 | CT ---
EXAMINATION TYPE: CT brain wo con DATE OF EXAM: 09/29/2016 COMPARISON: 06/02/2011 HISTORY: Patient complains of nausea, vomiting, weakness, and vertigo today. CT DLP: 1165 mGycm. Automated Exposure Control for Dose Reduction was Utilized. TECHNIQUE: CT scan of the head is performed without contrast. FINDINGS: There is no acute intracranial hemorrhage, mass effect, or midline shift identified. The ventricles and sulci are within normal limits in size. The globes are intact and the visualized sin uses are clear. IMPRESSION: No acute intracranial hemorrhage, mass effect, or midline shift is seen.
[2016-09-29] MEDS ORDERED: ONDANSETRON 4 MG/2 ML VIAL IVP STA (09:43)
[2016-09-29 09:46] VITALS: BP 112/59; PULSE 83; RESP 19; TEMP 96.7
== END 2016-09-29 09:57 | disposition home or self-care (01) ==
LOC: EC 08:03
DX: H66.91 Otitis media, unspecified, right ear (principal); R42 Dizziness and giddiness; R11.10 Vomiting, unspecified; R53.1 Weakness; Z87.891 Personal history of nicotine dependence; Z79.899 Other long term (current) drug therapy
CPT/HCPCS: 36415; 80053; 85025; 70450; 99284; 96374; 96375 ×3; 96361; J2765; J3360; J2405

== ENCOUNTER 2016-11-05 04:51 | Emergency (ER) | payer OTHER ==
[2016-11-05 04:57] VITALS: RESP 18
[2016-11-05] MEDS ORDERED: SODIUM CHLORIDE 0.9% 1,000 ML IV STA (05:15)
[2016-11-05] MEDS ORDERED: PROMETHAZINE INJ 25 MG in SODIUM CHLORIDE 0.9% 50 ML IVPB STA (05:15)
[2016-11-05 05:25] LABS: Basophils # (A) 0.1 k/uL (0-0.2); Basophils % (A) 1 %; CH 31.3; CHCM 35.5; Eosinophils # (A) 0.3 k/uL (0-0.7); Eosinophils % (A) 3 %; HCT 52.1 % (39.0-53.0); HDW 2.57; HGB 17.7 gm/dL (13.0-17.5); Luc # (Auto) 0.14; Luc % (Auto) 1; Lymphocytes # (A) 2.8 k/uL (1.0-4.8); Lymphocytes % (A) 24 %; MCH 30.1 pg (25.0-35.0); MCV 88.6 fL (80.0-100.0); Mean Platelet Volume 9.2; Monocytes # (A) 0.5 k/uL (0-1.0); Monocytes % (A) 5 %; Neutrophils # (A) 7.8 k/uL (1.3-7.7); Neutrophils % (A) 67 %; RBC 5.88 m/uL (4.30-5.90); RDW 14.4 % (11.5-15.5); WBC 11.6 k/uL (3.8-10.6); WBC (Perox) 11.95
[2016-11-05 05:34] LABS: ALT 73 U/L (21-72); AST 31 U/L (17-59); Alkaline Phosphatase 102 U/L (38-126); Amylase 49 U/L (30-110); Anion Gap 14 mmol/L; Blood Urea Nitrogen 12 mg/dL (9-20); Calcium 10.5 mg/dL (8.4-10.2); Carbon Dioxide 24 mmol/L (22-30); Chloride 107 mmol/L (98-107); Glucose 120 mg/dL (74-99); Non-African American GFR(MDRD) >60 (>60 ml/min/1.73 sqM); Potassium 3.8 mmol/L (3.5-5.1); Sodium 145 mmol/L (137-145)
[2016-11-05] MEDS ORDERED: LORazepam 2 MG/ML INJ IV STA (05:44)
[2016-11-05] MEDS ORDERED: HYDROmorphone 1 MG/ML 1 ML SYRINGE IVP STA ×2 (05:44→06:48)
[2016-11-05] MEDS ORDERED: ONDANSETRON 4 MG/2 ML VIAL IVP STA (06:48)
--- NOTE | 2016-11-05 06:49 | ED ---
Nausea/Vomiting/Diarrhea HPI - General Chief complaint: Nausea/Vomiting/Diarrhea Stated complaint: Vomiting Time Seen by Provider: 11/05/16 05:01 Source: patient, family Mode of arrival: ambulatory Limitations: no limitations - History of Present Illness Initial comments: This patient is 31-year-old man who states he has history of cyclic nausea and vomiting syndrome, who presents with he states symptoms are identical to his usual exacerbations. He states he has had more or less continuous retching and vomiting as the past few hours. He does have upper abdominal pain that he describes as burning and cramping. Symptoms are now constant. The symptoms are identical to previous exacerbations. He states that his home medications are not working and that symptoms have become severe in intensity. The pain gets worse with retching. No other worsening or relieving factors. He states that what usually helps him is to receive IV Phenergan, Dilaudid, and Ativan. Patient states she has seen the supervisor matrix for this previously. MD complaint: nausea, vomiting Onset/Timin -: hour(s) Description of Vomiting: food contents, other (HEENT) Associated Abdominal Pain: Yes Location: LUQ, RUQ, epigastric Radiation: none Severity: severe Quality: aching, other Consistency: constant Improves with: none Worsens with: none Associated Symptoms: denies other symptoms - Related Data Home Medications Medication Instructions Recorded Confirmed Hydrocodone/Acetaminophen 1 tab PO Q6H PRN 08/14/15 11/05/16 [Hydrocodon-Acetaminoph 7.5-325] Loratadine [Claritin] 10 mg PO DAILY 05/11/16 11/05/16 Albuterol Nebulized [Ventolin 2.5 mg INHALATION RT-Q6H PRN 05/24/16 11/05/16 Nebulized] Ibuprofen [Motrin] 800 mg PO DAILY PRN 05/24/16 11/05/16 Promethazine Suppository 12.5 mg RECTAL DAILY PRN 09/29/16 11/05/16 [Phenergan] Previous Rx's Medication Instructions Recorded Omeprazole [PriLOSEC] 20 mg PO DAILY #10 capsule. 04/12/16 Ondansetron Odt [Zofran Odt] 8 mg PO Q8HR PRN #14 tab 09/10/16 Amoxicillin/Potassium Clav 1 tab PO Q12HR #20 tab 09/29/16 [Augmentin 875-125 Tablet] Meclizine [Antivert] 12.5 mg PO Q6H #20 tablet 09/29/16 Ondansetron Odt [Zofran ODT] 4 mg PO Q8HR PRN #20 tab 09/29/16 Allergies Allergy/AdvReac Type Severity Reaction Status Date / Time No Known Allergies Allergy Verified 11/05/16 04:57 Review of Systems ROS Statement: Those systems with pertinent positive or pertinent negative responses have been documented in the HPI. ROS Other: All systems not noted in ROS Statement are negative. Constitutional: Denies: fever, chills Respiratory: Denies: cough, dyspnea Cardiovascular: Denies: chest pain, palpitations Gastrointestinal: Reports: abdominal pain, nausea, vomiting. Denies: diarrhea, constipation, hematemesis, melena, hematochezia Genitourinary: Denies: dysuria Musculoskeletal: Denies: back pain Skin: Denies: rash Neurological: Denies: headache, weakness, numbness Past Medical History Past Medical History: Asthma, GERD/Reflux Additional Past Medical History / Comment(s): cyclic vomiting syndrome, back pain '"RUPTURE DISC" History of Any Multi-Drug Resistant Organisms: None Reported Past Surgical History: Adenoidectomy, Appendectomy, Cholecystectomy Additional Past Surgical History / Comment(s): EGD, medical marijuana Past Anesthesia/Blood Transfusion Reactions: No Reported Reaction Past Psychological History: Anxiety Smoking Status: Former smoker Past Alcohol Use History: None Reported Past Drug Use History: None Reported - Past Family History Father Family Medical History: No Reported History Mother Family Medical History: Diabetes Mellitus Additional Family Medical History / Comment(s): severe food allergies General Exam Limitations: no limitations General appearance: alert, in no apparent distress, obese Head exam: Present: atraumatic, normocephalic Eye exam: Present: normal appearance. Absent: scleral icterus, conjunctival injection Respiratory exam: Present: normal lung sounds bilaterally. Absent: respiratory distress, wheezes, rales, rhonchi, stridor Cardiovascular Exam: Present: regular rate, normal rhythm, normal heart sounds. Absent: systolic murmur, diastolic murmur, rubs, gallop GI/Abdominal exam: Present: soft. Absent: distended, tenderness, guarding, rebound, mass, pulsatile mass, hernia Extremities exam: Present: normal inspection, normal capillary refill. Absent: pedal edema, calf tenderness Back exam: Present: normal inspection. Absent: CVA tenderness (R), CVA tenderness (L) Neurological exam: Present: alert Skin exam: Present: warm, normal color. Absent: rash Course Vital Signs 11/05/16 04:53 Temperature 98.8 F Pulse Rate 75 Respiratory 18 Rate Blood Pressure 130/95 O2 Sat by Pulse 97 Oximetry Medical Decision Making - Lab Data Result diagrams: 11/05/16 05:15 11/05/16 05:15 Lab Results 11/05/16 11/05/16 Range/Units 05:15 05:15 WBC 11.6 H (3.8-10.6) k/uL RBC 5.88 (4.30-5.90) m/uL Hgb 17.7 H (13.0-17.5) gm/dL Hct 52.1 (39.0-53.0) % MCV 88.6 (80.0-100.0) fL MCH 30.1 (25.0-35.0) pg MCHC 34.0 (31.0-37.0) g/dL RDW 14.4 (11.5-15.5) % Plt Count 306 (150-450) k/uL Neutrophils % 67 % Lymphocytes % 24 % Monocytes % 5 % Eosinophils % 3 % Basophils % 1 % Neutrophils # 7.8 H (1.3-7.7) k/uL Lymphocytes # 2.8 (1.0-4.8) k/uL Monocytes # 0.5 (0-1.0) k/uL Eosinophils # 0.3 (0-0.7) k/uL Basophils # 0.1 (0-0.2) k/uL Sodium 145 (137-145) mmol/L Potassium 3.8 (3.5-5.1) mmol/L Chloride 107 (98-107) mmol/L Carbon Dioxide 24 (22-30) mmol/L Anion Gap 14 mmol/L BUN 12 (9-20) mg/dL Creatinine 1.00 (0.66-1.25) mg/dL Est GFR (MDRD) Af Amer >60 (>60 ml/min/1.73 sqM) Est GFR (MDRD) Non-Af >60 (>60 ml/min/1.73 sqM) Glucose 120 H (74-99) mg/dL Calcium 10.5 H (8.4-10.2) mg/dL Total Bilirubin 1.0 (0.2-1.3) mg/dL AST 31 (17-59) U/L ALT 73 H (21-72) U/L Alkaline Phosphatase 102 (38-126) U/L Total Protein 8.0 (6.3-8.2) g/dL Albumin 4.9 (3.5-5.0) g/dL Amylase 49 (30-110) U/L Lipase 168 (23-300) U/L Disposition Clinical Impression: Nausea and vomiting Disposition: HOME SELF-CARE Condition: Good Instructions: Acute Nausea and Vomiting (ED) Referrals: Sher Lewis MD [Primary Care Provider] - 1-2 days
[2016-11-05 07:09] VITALS: BP 131/76; PULSE 71; TEMP 97.9
== END 2016-11-05 07:09 | disposition home or self-care (01) ==
LOC: EC 04:51
DX: R11.2 Nausea with vomiting, unspecified (principal); R10.11 Right upper quadrant pain; R10.12 Left upper quadrant pain; R10.13 Epigastric pain; F41.9 Anxiety disorder, unspecified; Z90.49 Acquired absence of other specified parts of digestive tract; Z87.891 Personal history of nicotine dependence; Z79.899 Other long term (current) drug therapy
CPT/HCPCS: 36415; 80053; 82150; 83690; 85025; 99284; 96365; 96375 ×3; 96376; 96361; J2060; J2550; J2405; J1170

== ENCOUNTER 2017-07-01 08:19 | Emergency (ER) | payer OTHER ==
[2017-07-01] MEDS ORDERED: FAMOTIDINE 20 MG/2 ML VIAL IV STA (08:42)
[2017-07-01] MEDS ORDERED: LORazepam 2 MG/ML INJ IV STA (08:42)
[2017-07-01] MEDS ORDERED: PROMETHAZINE INJ 25 MG in SODIUM CHLORIDE 0.9% 50 ML IVPB STA (08:42)
--- NOTE | 2017-07-01 08:47 | ED ---
General Adult HPI - General Chief complaint: Nausea/Vomiting/Diarrhea Stated complaint: Vomiting, Abd Pain Time Seen by Provider: 07/01/17 08:35 Source: patient, RN notes reviewed, old records reviewed Mode of arrival: ambulatory Limitations: no limitations - History of Present Illness Initial comments: Patient 32-year-old males significant past medical history for cyclic vomiting syndrome, presenting to the emergency room today with a chief complaint of increased abdominal pain and right upper quadrant with nausea vomiting that started 2 days ago. Patient states symptoms are consistent with his cyclic vomiting. States his last flareup was approximately a month ago. Patient denies any signs of blood in the emesis. He denies any other complaints or symptoms. Patient denies any recent fever, chills, shortness of breath, chest pain, back pain, numbness or tingling, dysuria or hematuria, constipation or diarrhea, headaches or visual changes, or any other complaints. - Related Data Home Medications Medication Instructions Recorded Confirmed Albuterol Nebulized [Ventolin 2.5 mg INHALATION RT-Q6H PRN 05/24/16 01/19/17 Nebulized] Promethazine HCl 12.5 mg PO Q12H PRN 01/13/17 01/19/17 LORazepam [Ativan] 1 mg PO DAILY PRN 01/19/17 01/19/17 Previous Rx's Medication Instructions Recorded Ondansetron Odt [Zofran ODT] 4 mg PO Q8HR PRN #20 tab 09/29/16 Famotidine [Pepcid] 20 mg PO BID tab 01/14/17 Amitriptyline HCl [Elavil] 10 mg PO HS #0 tab 01/20/17 Allergies Allergy/AdvReac Type Severity Reaction Status Date / Time No Known Allergies Allergy Verified 07/01/17 08:34 Review of Systems ROS Statement: Those systems with pertinent positive or pertinent negative responses have been documented in the HPI. ROS Other: All systems not noted in ROS Statement are negative. Past Medical History Past Medical History: Asthma, GERD/Reflux Additional Past Medical History / Comment(s): cyclic vomiting syndrome, back pain '"RUPTURE DISC" History of Any Multi-Drug Resistant Organisms: None Reported Past Surgical History: Adenoidectomy, Appendectomy, Cholecystectomy Additional Past Surgical History / Comment(s): EGD Past Anesthesia/Blood Transfusion Reactions: No Reported Reaction Past Psychological History: Anxiety Smoking Status: Former smoker - Past Family History Father Family Medical History: No Reported History Mother Family Medical History: Diabetes Mellitus Additional Family Medical History / Comment(s): severe food allergies General Exam - General Exam Comments Initial Comments: General: The patient is awake and alert, in no distress, and does not appear acutely ill. Eye: Pupils are equal, round and reactive to light, extra-ocular movements are intact. No nystagmus. There is normal conjunctiva bilaterally. No signs of icterus. Ears, nose, mouth and throat: There are moist mucous membranes and no oral lesions. Neck: The neck is supple, there is no tenderness or JVD. Cardiovascular: There is a regular rate and rhythm. No murmur, rub or gallop is appreciated. Respiratory: Lungs are clear to auscultation, respirations are non-labored, breath sounds are equal. No wheezes, stridor, rales, or rhonchi. Gastrointestinal: Normal appearance the abdomen. Abdomen soft on palpation. Tender palpation right upper quadrant. Mildly tender epigastric. No rebound tenderness. No guarding. CVA tenderness. Musculoskeletal: Normal ROM, no tenderness. Strength 5/5. Sensation intact. Neurological: A&O x 3. CN II-XII intact, There are no obvious motor or sensory deficits. Coordination appears grossly intact. Speech is normal. Skin: Skin is warm and dry and no rashes or lesions are noted. Psychiatric: Cooperative, appropriate mood & affect, normal judgment. Limitations: no limitations Course Vital Signs 07/01/17 07/01/17 08:32 11:00 Temperature 98.5 F 99 F Pulse Rate 102 H 89 Respiratory 16 18 Rate Blood Pressure 124/77 131/71 O2 Sat by Pulse 99 97 Oximetry Medical Decision Making - Medical Decision Making Patient reexamined at this time shows no signs of distress. His labs been reviewed. Does show elevated bilirubin at 2.1. This is been elevated in the past labs. Patient does have cholecystectomy. Patient feeling much better here in the emergency room after medications. Given a total 2 L. Will be discharged home he does have medications that he can continue. Is advised follow up his family doctor. Advised return if symptoms increase or worsen. - Lab Data Result diagrams: 07/01/17 09:40 07/01/17 09:40 Lab Results 07/01/17 07/01/17 07/01/17 Range/Units 09:25 09:40 09:40 WBC 11.5 H (3.8-10.6) k/uL RBC 5.68 (4.30-5.90) m/uL Hgb 17.1 (13.0-17.5) gm/dL Hct 47.9 (39.0-53.0) % MCV 84.2 (80.0-100.0) fL MCH 30.2 (25.0-35.0) pg MCHC 35.8 (31.0-37.0) g/dL RDW 12.8 (11.5-15.5) % Plt Count 321 (150-450) k/uL Neutrophils % 78 % Lymphocytes % 13 % Monocytes % 6 % Eosinophils % 1 % Basophils % 0 % Neutrophils # 9.0 H (1.3-7.7) k/uL Lymphocytes # 1.5 (1.0-4.8) k/uL Monocytes # 0.7 (0-1.0) k/uL Eosinophils # 0.1 (0-0.7) k/uL Basophils # 0.0 (0-0.2) k/uL Sodium 143 (137-145) mmol/L Potassium 3.9 (3.5-5.1) mmol/L Chloride 98 (98-107) mmol/L Carbon Dioxide 23 (22-30) mmol/L Anion Gap 22 mmol/L BUN 14 (9-20) mg/dL Creatinine 0.87 (0.66-1.25) mg/dL Est GFR (CKD-EPI)AfAm >90 (>60 ml/min/1.73 sqM) Est GFR (CKD-EPI)NonAf >90 (>60 ml/min/1.73 sqM) Glucose 91 (74-99) mg/dL Calcium 10.7 H (8.4-10.2) mg/dL Total Bilirubin 2.1 H (0.2-1.3) mg/dL AST 25 (17-59) U/L ALT 50 (21-72) U/L Alkaline Phosphatase 64 (38-126) U/L Total Protein 8.0 (6.3-8.2) g/dL Albumin 5.3 H (3.5-5.0) g/dL Amylase 47 (30-110) U/L Lipase 43 (23-300) U/L Urine Color Yellow Urine Appearance Clear (Clear) Urine pH 6.0 (5.0-8.0) Ur Specific [place] 1.033 (1.001-1.035) Urine Protein 3+ H (Negative) Urine Glucose (UA) Negative (Negative) Urine Ketones 4+ H (Negative) Urine Blood Small H (Negative) Urine Nitrite Negative (Negative) Urine Bilirubin 1+ H (Negative) Urine Urobilinogen 6.0 (<2.0) mg/dL Ur Leukocyte Esterase Negative (Negative) Urine RBC 6 H (0-5) /hpf Urine WBC 4 (0-5) /hpf Hyaline Casts 46 H (0-2) /lpf Urine Mucus Many H (None) /hpf Disposition Clinical Impression: Nausea & vomiting Disposition: HOME SELF-CARE Condition: Good Instructions: Acute Nausea and Vomiting (ED) Additional Instructions: Please follow-up with family doctor in the next 2 days of symptoms have not improved. Please return to emergency room if the symptoms increase or worsen or for any other concerns. Is patient prescribed a controlled substance at d/c from ED?: No Referrals: Sher Lewis MD [Primary Care Provider] - 1-2 days Time of Disposition: 11:31
[2017-07-01 09:40] LABS: Appearance,Urine Clear (Clear); Bilirubin,Urine 1+ (Negative); Blood,Urine Small (Negative); Color,Urine Yellow; Glucose,Urine (UA) Negative (Negative); Hyaline Casts,Urine 46 /lpf (0-2); Ketones,Urine 4+ (Negative); Leukocyte Esterase,Urine Negative (Negative); Mucus,Urine Many /hpf; Nitrite,Urine Negative (Negative); Protein,Urine 3+ (Negative); RBC,Urine 6 /hpf (0-5); Specific Gravity,Urine 1.033 (1.001-1.035); WBC,Urine 4 /hpf (0-5)
[2017-07-01 09:57] LABS: Basophils % (A) 0 %; Eosinophils # (A) 0.1 k/uL (0-0.7); Eosinophils % (A) 1 %; HCT 47.9 % (39.0-53.0); HGB 17.1 gm/dL (13.0-17.5); Lymphocytes # (A) 1.5 k/uL (1.0-4.8); Lymphocytes % (A) 13 %; MCH 30.2 pg (25.0-35.0); MCHC 35.8 g/dL (31.0-37.0); MCV 84.2 fL (80.0-100.0); Mean Platelet Volume 7.7; Monocytes # (A) 0.7 k/uL (0-1.0); Monocytes % (A) 6 %; Neutrophils % (A) 78 %; Platelet Count 321 k/uL (150-450); RBC 5.68 m/uL (4.30-5.90); RDW 12.8 % (11.5-15.5); WBC 11.5 k/uL (3.8-10.6)
[2017-07-01] MEDS ORDERED: SODIUM CHLORIDE 0.9% 1,000 ML IV STA ×2 (10:01)
[2017-07-01 10:12] LABS: ALT 50 U/L (21-72); AST 25 U/L (17-59); Albumin 5.3 g/dL (3.5-5.0); Alkaline Phosphatase 64 U/L (38-126); Amylase 47 U/L (30-110); Anion Gap 22 mmol/L; Blood Urea Nitrogen 14 mg/dL (9-20); Calcium 10.7 mg/dL (8.4-10.2); Carbon Dioxide 23 mmol/L (22-30); Chloride 98 mmol/L (98-107); Glucose 91 mg/dL (74-99); Lipase 43 U/L (23-300); Potassium 3.9 mmol/L (3.5-5.1); Sodium 143 mmol/L (137-145); Total Bilirubin 2.1 mg/dL (0.2-1.3)
--- NOTE | 2017-07-01 10:57 | XR ---
EXAMINATION TYPE: XR KUB DATE OF EXAM: 07/01/2017 10:40 AM CLINICAL HISTORY: Abdominal pain TECHNIQUE: Single supine KUB image of the abdomen is obtained. COMPARISON: 12/06/2016. FINDINGS: Scattered gas is seen in non-distended small bowel loops. Gas and fecal material is seen in non-distended colon. There is no visceromegaly, pneumoperitoneum, or abnormal calcification apprecia jennifer. The lung bases are clear and the osseous structures are intact. Cholecystectomy clips are noted within the right upper quadrant. IMPRESSION: Nonobstructive bowel gas pattern.
[2017-07-01] MEDS ORDERED: ONDANSETRON 4 MG/2 ML VIAL IVP STA (11:07)
[2017-07-01 12:31] VITALS: BP 133/71; PULSE 96; RESP 16; TEMP 98.6
== END 2017-07-01 13:21 | disposition home or self-care (01) ==
LOC: EC 08:19
DX: R11.2 Nausea with vomiting, unspecified (principal); R10.11 Right upper quadrant pain; Z90.49 Acquired absence of other specified parts of digestive tract; Z87.891 Personal history of nicotine dependence
CPT/HCPCS: 99284; 96365; 96375 ×3; 96361 ×3; 36415; 80053; 82150; 83690; 85025; 81001; 74018; J2060; J2550; J2405

== ENCOUNTER 2017-07-14 05:14 | Emergency (ER) | payer OTHER ==
[2017-07-14] MEDS ORDERED: ONDANSETRON 4 MG/2 ML VIAL IVP STA ×2 (05:25→08:12)
[2017-07-14] MEDS ORDERED: SODIUM CHLORIDE 0.9% 2,000 ML IV STA (05:25)
[2017-07-14] MEDS ORDERED: MORPHINE SULFATE 4 MG/ML SYRINGE IV STA (05:25)
[2017-07-14] MEDS ORDERED: SODIUM CHLORIDE 0.9% 1,000 ML IV STA (05:25)
[2017-07-14] MEDS ORDERED: METOCLOPRAMIDE 5 MG/ML 2 ML VIAL IVP STA (05:29)
--- NOTE | 2017-07-14 05:29 | ED ---
Abdominal Pain HPI - General Source: patient Mode of arrival: ambulatory Limitations: no limitations <Cholo Perry - Last Filed: 07/14/17 06:51> <Nigel Thompson - Last Filed: 07/14/17 08:13> - General Chief Complaint: Abdominal Pain Stated Complaint: Vomiting Time Seen by Provider: 07/14/17 05:21 - History of Present Illness Initial Comments: Years old male comes in with a history of chronic abdominal pain and cyclic vomiting, he said that he has a pain going on for about 24 hours he threw up multiple times he been dry heaving as a matter of fact he threw up during the exam quite explosively and now pain is in the right upper quadrant area he did his gallbladder out and he also had his appendix out area denies any headaches no neck stiffness no chest pain no shortness of breath (Cholo Perry) - Related Data Home Medications Medication Instructions Recorded Confirmed Amitriptyline HCl 25 mg PO HS 07/14/17 07/14/17 Ibuprofen [Motrin Ib] 400 mg PO Q6H PRN 07/14/17 07/14/17 Omeprazole 20 mg PO AC-SUPPER 07/14/17 07/14/17 Allergies Allergy/AdvReac Type Severity Reaction Status Date / Time No Known Allergies Allergy Verified 07/14/17 08:06 Review of Systems ROS Other: All systems not noted in ROS Statement are negative. <Cholo Perry - Last Filed: 07/14/17 06:51> ROS Other: All systems not noted in ROS Statement are negative. <Nigel Thompson - Last Filed: 07/14/17 08:13> ROS Statement: Those systems with pertinent positive or pertinent negative responses have been documented in the HPI. Past Medical History Past Medical History: Asthma, GERD/Reflux Additional Past Medical History / Comment(s): cyclic vomiting syndrome, back pain '"RUPTURE DISC" History of Any Multi-Drug Resistant Organisms: None Reported Past Surgical History: Adenoidectomy, Appendectomy, Cholecystectomy Additional Past Surgical History / Comment(s): EGD Past Anesthesia/Blood Transfusion Reactions: No Reported Reaction Past Psychological History: Anxiety Smoking Status: Former smoker - Past Family History Father Family Medical History: No Reported History Mother Family Medical History: Diabetes Mellitus Additional Family Medical History / Comment(s): severe food allergies <Cholo Perry - Last Filed: 07/14/17 06:51> General Exam Limitations: no limitations <Cholo Perry - Last Filed: 07/14/17 06:51> <Nigel Thompson - Last Filed: 07/14/17 08:13> - General Exam Comments Initial Comments: General: The patient is awake and alert, in moderate distress Skin: Skin is warm and dry and no rashes or lesions are noted. Eye: Pupils are equal, round and reactive to light, extra-ocular movements are intact; there is normal conjunctiva bilaterally. Ears, nose, mouth and throat: There are moist mucous membranes and no oral lesions. Neck: The neck is supple, there is no tenderness or JVD. Cardiovascular: There is a regular rate and rhythm. No murmur, rub or gallop is appreciated. Respiratory: To auscultation bilateral, no wheezing no rhonchi no distress respiratory rahman noticed Gastrointestinal: Tender in epigastric area as well as right upper quadrant area Back: There is no tenderness to palpation in the midline. There is no obvious deformity. Musculoskeletal: Normal ROM, no tenderness, There is no pedal edema. There is no calf tenderness or swelling. No cords were appreciated. Neurological: CN II-XII intact, Cranial nerves III through XII are intact. There are no obvious motor or sensory deficits. Coordination appears grossly intact. Speech is normal. Psychiatric: Cooperative, appropriate mood & affect, normal judgment. (Cholo Perry) Course <Cholo Perry - Last Filed: 07/14/17 06:51> <Nigel Thompson - Last Filed: 07/14/17 08:13> Vital Signs 07/14/17 07/14/17 05:15 06:31 Temperature 98.5 F Pulse Rate 67 88 Respiratory 16 18 Rate Blood Pressure 161/80 157/77 O2 Sat by Pulse 100 97 Oximetry Vision is reassessed at 650, is feeling better he still feels very dry mouth, he got a fluids, and x-ray ruled out any free air under the diaphragm white count is slightly elevated he got some morphine, Zofran, Reglan, Pepcid, it has helped his nausea vomiting and abdominal discomfort, patient still has some degree of discomfort in epigastric area he said he is nauseous again will endorsed patient to morning shift for further care (Cholo Perry) Medical Decision Making - Lab Data Result diagrams: 07/14/17 05:33 07/14/17 05:33 <Cholo Perry - Last Filed: 07/14/17 06:51> - Lab Data Result diagrams: 07/14/17 05:33 07/14/17 05:33 <Rafael Thompsonophe - Last Filed: 07/14/17 08:13> - Lab Data Lab Results 07/14/17 07/14/17 07/14/17 Range/Units 05:33 05:33 05:55 WBC 14.2 H (3.8-10.6) k/uL RBC 5.75 (4.30-5.90) m/uL Hgb 16.9 (13.0-17.5) gm/dL Hct 49.0 (39.0-53.0) % MCV 85.3 (80.0-100.0) fL MCH 29.3 (25.0-35.0) pg MCHC 34.4 (31.0-37.0) g/dL RDW 13.3 (11.5-15.5) % Plt Count 397 (150-450) k/uL Neutrophils % 87 % Lymphocytes % 11 % Monocytes % 2 % Eosinophils % 1 % Basophils % 0 % Neutrophils # 12.3 H (1.3-7.7) k/uL Lymphocytes # 1.5 (1.0-4.8) k/uL Monocytes # 0.3 (0-1.0) k/uL Eosinophils # 0.1 (0-0.7) k/uL Basophils # 0.0 (0-0.2) k/uL Sodium 145 (137-145) mmol/L Potassium 4.2 (3.5-5.1) mmol/L Chloride 99 (98-107) mmol/L Carbon Dioxide 24 (22-30) mmol/L Anion Gap 22 mmol/L BUN 9 (9-20) mg/dL Creatinine 0.80 (0.66-1.25) mg/dL Est GFR (CKD-EPI)AfAm >90 (>60 ml/min/1.73 sqM) Est GFR (CKD-EPI)NonAf >90 (>60 ml/min/1.73 sqM) Glucose 131 H (74-99) mg/dL Calcium 11.4 H (8.4-10.2) mg/dL Total Bilirubin 1.5 H (0.2-1.3) mg/dL AST 32 (17-59) U/L ALT 64 (21-72) U/L Alkaline Phosphatase 73 (38-126) U/L Total Protein 8.9 H (6.3-8.2) g/dL Albumin 5.7 H (3.5-5.0) g/dL Amylase 76 (30-110) U/L Lipase 79 (23-300) U/L Urine Color Yellow Urine Appearance Clear (Clear) Urine pH 8.0 (5.0-8.0) Ur Specific [place] 1.025 (1.001-1.035) Urine Protein 1+ H (Negative) Urine Glucose (UA) Negative (Negative) Urine Ketones 4+ H (Negative) Urine Blood Trace H (Negative) Urine Nitrite Negative (Negative) Urine Bilirubin Negative (Negative) Urine Urobilinogen <2.0 (<2.0) mg/dL Ur Leukocyte Esterase Negative (Negative) Urine RBC 8 H (0-5) /hpf Urine WBC 2 (0-5) /hpf Ur Squamous Epith Cells <1 (0-4) /hpf Urine Mucus Occasional H (None) /hpf Disposition <Cholo Perry - Last Filed: 07/14/17 06:51> Is patient prescribed a controlled substance at d/c from ED?: No Time of Disposition: 08:13 <Nigel Thompson - Last Filed: 07/14/17 08:13> Clinical Impression: Abdominal pain, Cyclical vomiting Disposition: HOME SELF-CARE Instructions: Acute Nausea and Vomiting (ED) Referrals: Sher Lewis MD [Primary Care Provider] - 1-2 days
[2017-07-14 05:48] LABS: Basophils % (A) 0 %; Eosinophils # (A) 0.1 k/uL (0-0.7); Eosinophils % (A) 1 %; HGB 16.9 gm/dL (13.0-17.5); Lymphocytes # (A) 1.5 k/uL (1.0-4.8); Lymphocytes % (A) 11 %; MCH 29.3 pg (25.0-35.0); MCHC 34.4 g/dL (31.0-37.0); MCV 85.3 fL (80.0-100.0); Mean Platelet Volume 7.7; Monocytes # (A) 0.3 k/uL (0-1.0); Monocytes % (A) 2 %; Neutrophils # (A) 12.3 k/uL (1.3-7.7); Neutrophils % (A) 87 %; Platelet Count 397 k/uL (150-450); RBC 5.75 m/uL (4.30-5.90); RDW 13.3 % (11.5-15.5); WBC 14.2 k/uL (3.8-10.6)
[2017-07-14] MEDS: MORPHINE SULFATE 2 MG/ML SYRINGE IVP STA ×3 (05:49→07:02)
[2017-07-14 05:53] LABS: ALT 64 U/L (21-72); AST 32 U/L (17-59); Albumin 5.7 g/dL (3.5-5.0); Alkaline Phosphatase 73 U/L (38-126); Amylase 76 U/L (30-110); Anion Gap 22 mmol/L; Blood Urea Nitrogen 9 mg/dL (9-20); Calcium 11.4 mg/dL (8.4-10.2); Carbon Dioxide 24 mmol/L (22-30); Chloride 99 mmol/L (98-107); Glucose 131 mg/dL (74-99); Lipase 79 U/L (23-300); Potassium 4.2 mmol/L (3.5-5.1); Sodium 145 mmol/L (137-145); Total Bilirubin 1.5 mg/dL (0.2-1.3); Total Protein 8.9 g/dL (6.3-8.2)
[2017-07-14] MEDS ORDERED: FAMOTIDINE 20 MG/2 ML VIAL IV STA (06:02)
[2017-07-14 06:03] LABS: Appearance,Urine Clear (Clear); Bilirubin,Urine Negative (Negative); Blood,Urine Trace (Negative); Color,Urine Yellow; Glucose,Urine (UA) Negative (Negative); Ketones,Urine 4+ (Negative); Leukocyte Esterase,Urine Negative (Negative); Mucus,Urine Occasional /hpf; Nitrite,Urine Negative (Negative); Protein,Urine 1+ (Negative); RBC,Urine 8 /hpf (0-5); Specific Gravity,Urine 1.025 (1.001-1.035); Squamous Epithelial Cell,Urine <1 /hpf (0-4); Urobilinogen,Urine <2.0 mg/dL (<2.0); WBC,Urine 2 /hpf (0-5)
--- NOTE | 2017-07-14 06:26 | XR ---
INDICATION: Abdominal pain COMPARISON: Abdominal radiographs, 07/01/17 FINDINGS: Upright views of the abdomen (2 images) demonstrate no evidence of bowel obstruction or free air. There are cholecystectomy clips in the right upper quadrant. No evidence of organomegaly, abnormal calcifications or obvious soft tissue masses. The osseous structures are intact. IMPRESSION: Nonobstructive bowel gas pattern.
[2017-07-14 06:31] VITALS: RESP 18
[2017-07-14] MEDS ORDERED: PROMETHAZINE INJ 25 MG/ML 1 ML VIAL IM STA (08:10)
[2017-07-14] MEDS ORDERED: ONDANSETRON 4 MG ODT STARTER PACK 2 TAB BTL PO STA (08:14)
[2017-07-14 08:45] VITALS: BP 152/99; PULSE 60; TEMP 98.9
== END 2017-07-14 08:42 | disposition home or self-care (01) ==
LOC: EC 05:14
DX: G43.A0 Cyclical vomiting, in migraine, not intractable (principal); K21.9 Gastro-esophageal reflux disease without esophagitis; F41.9 Anxiety disorder, unspecified; Z90.49 Acquired absence of other specified parts of digestive tract; Z87.891 Personal history of nicotine dependence; Z79.899 Other long term (current) drug therapy
CPT/HCPCS: 36415; 80053; 82150; 83690; 85025; 81001; 74018; 99284; 96374; 96375 ×3; 96376; 96361 ×3; 96372; J2550; J2765; J2405; J2270; S0119

== ENCOUNTER 2017-08-10 02:46 | Emergency (ER) | payer OTHER ==
[2017-08-10 02:54] VITALS: TEMP 98.8
[2017-08-10] MEDS ORDERED: METOCLOPRAMIDE 5 MG/ML 2 ML VIAL IVP STA (03:01)
[2017-08-10] MEDS ORDERED: SODIUM CHLORIDE 0.9% 1,000 ML IV STA (03:01)
[2017-08-10] MEDS ORDERED: ONDANSETRON 4 MG/2 ML VIAL IVP STA ×2 (03:01→05:24)
[2017-08-10] MEDS ORDERED: diphenhydrAMINE 50 MG/ML 1 ML VIAL IVP STA (03:01)
[2017-08-10] MEDS ORDERED: MORPHINE SULFATE 2 MG/ML SYRINGE IV STA (03:01)
--- NOTE | 2017-08-10 03:07 | ED ---
Nausea/Vomiting/Diarrhea HPI <Crispin Bradley - Last Filed: 08/10/17 07:08> - General Source: patient Mode of arrival: wheelchair Limitations: no limitations <Yanely Trevino - Last Filed: 08/11/17 04:49> - General Chief complaint: Nausea/Vomiting/Diarrhea Stated complaint: Vomiting, back pain Time Seen by Provider: 08/10/17 02:57 - History of Present Illness Initial comments: 40-year-old male patient with past medical history significant for cyclic vomiting syndrome and herniated disc presents to the emergency department today for complaints of vomiting, abdominal pain, and low back pain. Patient states that vomiting and abdominal pain started around 11 PM this evening. States he has vomited several times. States this is making his usual low back pain worse. He states that he does have pain radiating down to his bilateral lower buttocks. Denies any numbness or tingling in his lower extremities. Denies any loss of bowel or bladder control. Denies any saddle anesthesia. Patient denies any hematemesis. Denies any constipation or diarrhea. States his symptoms are consistent with his usual cyclic vomiting syndrome exacerbations. Patient denies any recent rash, fever, chills, shortness breath, chest pain, dizziness, weakness, hematuria, dysuria, urinary urgency, urinary frequency, headache, visual changes, or any other complaints. (Yanely Trevino) - Related Data Home Medications Medication Instructions Recorded Confirmed Amitriptyline HCl 25 mg PO HS 07/14/17 08/10/17 Ibuprofen [Motrin Ib] 400 mg PO Q6H PRN 07/14/17 08/10/17 Omeprazole 20 mg PO AC-SUPPER 07/14/17 08/10/17 Diazepam [Diastat] 5 mg RECTAL ONCE PRN 08/10/17 08/10/17 Ondansetron [Zofran ODT] 8 mg PO Q8HR PRN 08/10/17 08/10/17 Allergies Allergy/AdvReac Type Severity Reaction Status Date / Time No Known Allergies Allergy Verified 08/10/17 18:00 Review of Systems ROS Other: All systems not noted in ROS Statement are negative. <Crispin Bradley - Last Filed: 08/10/17 07:08> ROS Other: All systems not noted in ROS Statement are negative. <Yanely Trevino - Last Filed: 08/11/17 04:49> ROS Statement: Those systems with pertinent positive or pertinent negative responses have been documented in the HPI. Past Medical History Past Medical History: Asthma, GERD/Reflux Additional Past Medical History / Comment(s): cyclic vomiting syndrome, back pain '"RUPTURE DISC" History of Any Multi-Drug Resistant Organisms: None Reported Past Surgical History: Adenoidectomy, Appendectomy, Cholecystectomy Additional Past Surgical History / Comment(s): EGD Past Anesthesia/Blood Transfusion Reactions: No Reported Reaction Past Psychological History: Anxiety Smoking Status: Former smoker - Past Family History Father Family Medical History: No Reported History Mother Family Medical History: Diabetes Mellitus Additional Family Medical History / Comment(s): severe food allergies <Yanely Trevino Angélica - Last Filed: 08/11/17 04:49> General Exam Limitations: no limitations General appearance: alert, in no apparent distress, other (This is a well- developed, well-nourished adult male patient in mild distress. Vital signs upon presentation are temperature 98.8F, pulse 80, respirations 16, blood pressure 147/110, pulse ox 97% on room air.) Eye exam: Present: normal appearance, PERRL, EOMI. Absent: scleral icterus, conjunctival injection, periorbital swelling ENT exam: Present: normal exam, normal oropharynx, mucous membranes moist Respiratory exam: Present: normal lung sounds bilaterally. Absent: respiratory distress, wheezes, rales, rhonchi, stridor Cardiovascular Exam: Present: regular rate, normal rhythm, normal heart sounds. Absent: systolic murmur, diastolic murmur, rubs, gallop, clicks GI/Abdominal exam: Present: soft, tenderness (RUQ tenderness), normal bowel sounds. Absent: distended, guarding, rebound, rigid Back exam: Present: normal inspection. Absent: tenderness Neurological exam: Present: alert, oriented X3, CN II-XII intact Psychiatric exam: Present: normal affect, normal mood Skin exam: Present: warm, dry, intact, normal color. Absent: rash <Yanely Trevino M - Last Filed: 08/11/17 04:49> Vital Signs 08/10/17 08/10/17 08/10/17 02:53 03:59 05:00 Temperature 98.8 F Pulse Rate 80 89 67 Respiratory 16 18 18 Rate Blood Pressure 147/110 136/74 174/99 O2 Sat by Pulse 97 95 99 Oximetry Medical Decision Making - Lab Data Result diagrams: 08/10/17 03:17 08/10/17 03:17 <Crispin Bradley - Last Filed: 08/10/17 07:08> - Lab Data Result diagrams: 08/10/17 03:17 08/10/17 03:17 - Radiology Data Radiology results: report reviewed, image reviewed <Yanely Trevino - Last Filed: 08/11/17 04:49> - Medical Decision Making 32-year-old male patient presented to the emergency department today for evaluation of vomiting and abdominal pain as well as low back pain. Patient does have history of cyclic vomiting syndrome and states that his symptoms are similar to his usual flares. Patient was given multiple nausea medications as well as pain medication without much relief of symptoms. We will attempt to treat with Toradol and an additional dose of Zofran. Care handed over to Dr. Bradley at 0530 to follow patient until discharge. (Yanely Trevino) - Lab Data Lab Results 08/10/17 08/10/17 08/10/17 Range/Units 03:17 03:17 03:44 WBC 15.2 H (3.8-10.6) k/uL RBC 5.63 (4.30-5.90) m/uL Hgb 16.3 (13.0-17.5) gm/dL Hct 47.9 (39.0-53.0) % MCV 85.1 (80.0-100.0) fL MCH 29.0 (25.0-35.0) pg MCHC 34.1 (31.0-37.0) g/dL RDW 12.7 (11.5-15.5) % Plt Count 358 (150-450) k/uL Neutrophils % 66 % Lymphocytes % 24 % Monocytes % 5 % Eosinophils % 3 % Basophils % 0 % Neutrophils # 10.1 H (1.3-7.7) k/uL Lymphocytes # 3.6 (1.0-4.8) k/uL Monocytes # 0.8 (0-1.0) k/uL Eosinophils # 0.5 (0-0.7) k/uL Basophils # 0.0 (0-0.2) k/uL Sodium 143 (137-145) mmol/L Potassium 4.0 (3.5-5.1) mmol/L Chloride 104 (98-107) mmol/L Carbon Dioxide 25 (22-30) mmol/L Anion Gap 14 mmol/L BUN 15 (9-20) mg/dL Creatinine 0.80 (0.66-1.25) mg/dL Est GFR (CKD-EPI)AfAm >90 (>60 ml/min/1.73 sqM) Est GFR (CKD-EPI)NonAf >90 (>60 ml/min/1.73 sqM) Glucose 103 H (74-99) mg/dL Calcium 10.6 H (8.4-10.2) mg/dL Total Bilirubin 0.6 (0.2-1.3) mg/dL AST 26 (17-59) U/L ALT 50 (21-72) U/L Alkaline Phosphatase 66 (38-126) U/L Total Protein 7.6 (6.3-8.2) g/dL Albumin 4.8 (3.5-5.0) g/dL Amylase 79 (30-110) U/L Lipase 139 (23-300) U/L Urine Color Yellow Urine Appearance Turbid (Clear) Urine pH 8.5 H (5.0-8.0) Ur Specific [place] 1.018 (1.001-1.035) Urine Protein Trace H (Negative) Urine Glucose (UA) Negative (Negative) Urine Ketones Trace H (Negative) Urine Blood Negative (Negative) Urine Nitrite Negative (Negative) Urine Bilirubin Negative (Negative) Urine Urobilinogen <2.0 (<2.0) mg/dL Ur Leukocyte Esterase Negative (Negative) Amorphous Sediment Rare H (None) /hpf - Radiology Data To up right reviews of the abdomen are obtained. There is no sign of intestinal obstruction or pneumoperitoneum. Fecal pattern is normal. There is no sign of a mass. There are clips from cholecystectomy. Lung bases are clear. There are no pathologic calcifications over the kidneys. Impression by Dr. Zamudio shows nonacute abdomen with no change. (Yanely Trevino) Disposition Is patient prescribed a controlled substance at d/c from ED?: No <Crispin Bradley - Last Filed: 08/10/17 07:08> <Yanely Trevino - Last Filed: 08/11/17 04:49> Clinical Impression: Cyclic vomiting syndrome Disposition: HOME SELF-CARE Condition: Fair Instructions: Acute Nausea and Vomiting (ED) Referrals: Sher Lewis MD [Primary Care Provider] - 1-2 days
[2017-08-10 03:24] LABS: Basophils % (A) 0 %; Eosinophils # (A) 0.5 k/uL (0-0.7); Eosinophils % (A) 3 %; HCT 47.9 % (39.0-53.0); HGB 16.3 gm/dL (13.0-17.5); Lymphocytes # (A) 3.6 k/uL (1.0-4.8); Lymphocytes % (A) 24 %; MCHC 34.1 g/dL (31.0-37.0); MCV 85.1 fL (80.0-100.0); Mean Platelet Volume 7.7; Monocytes # (A) 0.8 k/uL (0-1.0); Monocytes % (A) 5 %; Neutrophils # (A) 10.1 k/uL (1.3-7.7); Neutrophils % (A) 66 %; Platelet Count 358 k/uL (150-450); RBC 5.63 m/uL (4.30-5.90); RDW 12.7 % (11.5-15.5); WBC 15.2 k/uL (3.8-10.6)
[2017-08-10 03:34] LABS: ALT 50 U/L (21-72); AST 26 U/L (17-59); Albumin 4.8 g/dL (3.5-5.0); Alkaline Phosphatase 66 U/L (38-126); Amylase 79 U/L (30-110); Anion Gap 14 mmol/L; Blood Urea Nitrogen 15 mg/dL (9-20); Calcium 10.6 mg/dL (8.4-10.2); Carbon Dioxide 25 mmol/L (22-30); Chloride 104 mmol/L (98-107); Glucose 103 mg/dL (74-99); Lipase 139 U/L (23-300); Sodium 143 mmol/L (137-145); Total Bilirubin 0.6 mg/dL (0.2-1.3); Total Protein 7.6 g/dL (6.3-8.2)
--- NOTE | 2017-08-10 03:44 | XR ---
EXAMINATION TYPE: XR KUB DATE OF EXAM: 08/10/2017 COMPARISON: 07/14/2017 HISTORY: Vomiting. Chest pain abdominal pain TECHNIQUE: 2 upright views FINDINGS: There is no sign of intestinal obstruction or pneumoperitoneum. Fecal pattern is normal. Th ere is no sign of a mass. There are clips from cholecystectomy. Lung bases are clear. There are no pa thologic calcifications over the kidneys. IMPRESSION: Nonacute abdomen. No change.
[2017-08-10] MEDS ORDERED: DICYCLOMINE 10 MG/ML 2 ML AMP IM STA (03:58)
[2017-08-10 04:00] VITALS: RESP 18
[2017-08-10] MEDS ORDERED: PROMETHAZINE INJ 25 MG/ML 1 ML VIAL IM STA (04:00)
[2017-08-10 04:07] LABS: Amorphous Sediment,Urine Rare /hpf; Appearance,Urine Turbid (Clear); Bilirubin,Urine Negative (Negative); Blood,Urine Negative (Negative); Color,Urine Yellow; Glucose,Urine (UA) Negative (Negative); Ketones,Urine Trace (Negative); Leukocyte Esterase,Urine Negative (Negative); Nitrite,Urine Negative (Negative); PH, Urine 8.5 (5.0-8.0); Protein,Urine Trace (Negative); Specific Gravity,Urine 1.018 (1.001-1.035); Urobilinogen,Urine <2.0 mg/dL (<2.0)
[2017-08-10] MEDS ORDERED: MORPHINE SULFATE 2 MG/ML SYRINGE IVP STA (04:40)
[2017-08-10] MEDS ORDERED: FAMOTIDINE 20 MG/2 ML VIAL IV STA (04:40)
[2017-08-10] MEDS ORDERED: KETOROLAC 30 MG/ML 1 ML VIAL IVP STA (05:24)
[2017-08-10 05:50] VITALS: BP 174/99; PULSE 67
== END 2017-08-10 07:27 | disposition home or self-care (01) ==
LOC: EC 02:46
DX: K31.89 Other diseases of stomach and duodenum (principal); R11.10 Vomiting, unspecified; R10.9 Unspecified abdominal pain; M54.5 Low back pain; K21.9 Gastro-esophageal reflux disease without esophagitis; F41.9 Anxiety disorder, unspecified; Z87.891 Personal history of nicotine dependence; Z79.899 Other long term (current) drug therapy; Z90.49 Acquired absence of other specified parts of digestive tract
CPT/HCPCS: 36415; 80053; 82150; 83690; 85025; 81001; 74018; 99284; 96374; 96375 ×5; 96376 ×2; 96361 ×4; 96372 ×2; J1200; J0500; J2550; J2765; J2405; J1885; J2270

== ENCOUNTER 2017-08-10 15:56 | Observation (INO) | payer OTHER ==
[2017-08-10] MEDS ORDERED: SODIUM CHLORIDE 0.9% 2,000 ML IV STA (17:47)
[2017-08-10] MEDS ORDERED: HYDROmorphone 0.5 MG/0.5 ML SYRINGE IVP STA (17:47)
[2017-08-10] MEDS ORDERED: diphenhydrAMINE 50 MG/ML 1 ML VIAL IVP STA (17:47)
[2017-08-10] MEDS ORDERED: SODIUM CHLORIDE 0.9% 1,000 ML IV STA (17:47)
[2017-08-10] MEDS ORDERED: PROMETHAZINE INJ 25 MG in SODIUM CHLORIDE 0.9% 50 ML IVPB STA (17:48)
[2017-08-10] MEDS ORDERED: METOCLOPRAMIDE 5 MG/ML 2 ML VIAL IVP STA (17:48)
[2017-08-10] MEDS ORDERED: ONDANSETRON 4 MG/2 ML VIAL IVP PRN (17:49)
[2017-08-10] MEDS ORDERED: LORazepam 2 MG/ML INJ IV PRN (17:49)
--- NOTE | 2017-08-10 17:49 | ED ---
Abdominal Pain HPI - General Source: patient, RN notes reviewed Mode of arrival: ambulatory Limitations: no limitations <Andrews Delgado - Last Filed: 08/10/17 17:56> <Abdifatah Olivarez - Last Filed: 08/10/17 18:45> - General Chief Complaint: Abdominal Pain Stated Complaint: Vomiting/Back Pain Time Seen by Provider: 08/10/17 17:46 - History of Present Illness Initial Comments: This is a 32-year-old male presents emergency Department from PCPs office for cyclic vomiting syndrome. Patient was seen here earlier in emergency department after symptoms started last night. Patient has not improved at home his symptoms continue to worsen. Patient has been admitted in the past for cyclic vomiting syndrome. He does have a history of chronic pain also. Patient denies any fevers or chills. He has no dysuria no hematuria no diarrhea. (Andrews Delgado) - Related Data Home Medications Medication Instructions Recorded Confirmed Amitriptyline HCl 25 mg PO HS 07/14/17 08/10/17 Ibuprofen [Motrin Ib] 400 mg PO Q6H PRN 07/14/17 08/10/17 Omeprazole 20 mg PO AC-SUPPER 07/14/17 08/10/17 Diazepam [Diastat] 5 mg RECTAL ONCE PRN 08/10/17 08/10/17 Ondansetron [Zofran ODT] 8 mg PO Q8HR PRN 08/10/17 08/10/17 Allergies Allergy/AdvReac Type Severity Reaction Status Date / Time No Known Allergies Allergy Verified 08/10/17 18:00 Review of Systems ROS Other: All systems not noted in ROS Statement are negative. <Andrews Delgado - Last Filed: 08/10/17 17:56> ROS Other: All systems not noted in ROS Statement are negative. <Abdifatah Olivarez - Last Filed: 08/10/17 18:45> ROS Statement: Those systems with pertinent positive or pertinent negative responses have been documented in the HPI. Past Medical History Past Medical History: Asthma, GERD/Reflux Additional Past Medical History / Comment(s): cyclic vomiting syndrome, back pain '"RUPTURE DISC" History of Any Multi-Drug Resistant Organisms: None Reported Past Surgical History: Adenoidectomy, Appendectomy, Cholecystectomy Additional Past Surgical History / Comment(s): EGD Past Anesthesia/Blood Transfusion Reactions: No Reported Reaction Past Psychological History: Anxiety Smoking Status: Former smoker Past Alcohol Use History: None Reported Past Drug Use History: None Reported - Past Family History Father Family Medical History: No Reported History Mother Family Medical History: Diabetes Mellitus Additional Family Medical History / Comment(s): severe food allergies <Andrews Delgado - Last Filed: 08/10/17 17:56> General Exam Limitations: no limitations General appearance: alert, in no apparent distress Neck exam: Present: normal inspection, full ROM. Absent: tenderness, meningismus, lymphadenopathy Respiratory exam: Present: normal lung sounds bilaterally. Absent: respiratory distress, wheezes, rales, rhonchi, stridor Cardiovascular Exam: Present: regular rate, normal rhythm, normal heart sounds. Absent: systolic murmur, diastolic murmur, rubs, gallop, clicks GI/Abdominal exam: Present: soft, tenderness (Diffuse moderate), normal bowel sounds. Absent: distended, guarding, rebound, rigid Back exam: Absent: CVA tenderness (R), CVA tenderness (L) Skin exam: Present: warm, dry, intact, normal color. Absent: rash <Andrews Delgado - Last Filed: 08/10/17 17:56> Course <Andrews Delgado - Last Filed: 08/10/17 17:56> <Abdifatah Olivarez - Last Filed: 08/10/17 18:45> Vital Signs 08/10/17 17:05 Temperature 99.0 F Pulse Rate 70 Respiratory 20 Rate Blood Pressure 157/92 O2 Sat by Pulse 100 Oximetry - Reevaluation(s) Reevaluation #1: 08/10/17 18:45 PA supervision: Facial sent here for evaluation and cyclical vomiting. Patient was seen in the emergency department this evening. I personally saw and examined the patient and reviewed and agree with the PA findings including all diagnostic interpretations and treatment plans is written was otherwise stated I did discuss case with Dr. Rebolledo the patient will be admitted his service. ( Abdfiatah Olivarez) Medical Decision Making <Andrews Delgado - Last Filed: 08/10/17 17:56> - Lab Data Result diagrams: 08/10/17 17:55 08/10/17 17:55 <Abdifatah Olivarez - Last Filed: 08/10/17 18:45> - Medical Decision Making 32-year-old male presented to the emergency Department for nausea vomiting. Patient was seen earlier this morning and was discharged. Patient with PCP sent him here for admission secondary to failed outpatient treatment. Patient has a history of cyclic vomiting syndrome. (Andrews Delgado) - Lab Data Lab Results 08/10/17 08/10/17 Range/Units 17:55 17:55 WBC 16.2 H (3.8-10.6) k/uL RBC 5.89 (4.30-5.90) m/uL Hgb 17.2 (13.0-17.5) gm/dL Hct 50.1 (39.0-53.0) % MCV 85.1 (80.0-100.0) fL MCH 29.2 (25.0-35.0) pg MCHC 34.4 (31.0-37.0) g/dL RDW 12.9 (11.5-15.5) % Plt Count 442 (150-450) k/uL Neutrophils % 84 % Lymphocytes % 9 % Monocytes % 4 % Eosinophils % 2 % Basophils % 0 % Neutrophils # 13.6 H (1.3-7.7) k/uL Lymphocytes # 1.5 (1.0-4.8) k/uL Monocytes # 0.7 (0-1.0) k/uL Eosinophils # 0.2 (0-0.7) k/uL Basophils # 0.0 (0-0.2) k/uL Sodium 141 (137-145) mmol/L Potassium 4.0 (3.5-5.1) mmol/L Chloride 97 L (98-107) mmol/L Carbon Dioxide 22 (22-30) mmol/L Anion Gap 22 mmol/L BUN 11 (9-20) mg/dL Creatinine 0.78 (0.66-1.25) mg/dL Est GFR (CKD-EPI)AfAm >90 (>60 ml/min/1.73 sqM) Est GFR (CKD-EPI)NonAf >90 (>60 ml/min/1.73 sqM) Glucose 100 H (74-99) mg/dL Calcium 11.0 H (8.4-10.2) mg/dL Total Bilirubin 1.8 H (0.2-1.3) mg/dL AST 36 (17-59) U/L ALT 45 (21-72) U/L Alkaline Phosphatase 74 (38-126) U/L Total Protein 8.9 H (6.3-8.2) g/dL Albumin 5.6 H (3.5-5.0) g/dL Amylase 62 (30-110) U/L Lipase 41 (23-300) U/L Disposition <Andrews Delgado - Last Filed: 08/10/17 17:56> <Abdifatah Olivarez - Last Filed: 08/10/17 18:45> Clinical Impression: Cyclic vomiting syndrome, Failure of outpatient treatment, Intractable nausea and vomiting Disposition: ADMITTED IP TO THIS [facility] Condition: Fair Referrals: Sher Lewis MD [Primary Care Provider] - 1-2 days
[2017-08-10 18:05] LABS: Basophils % (A) 0 %; Eosinophils # (A) 0.2 k/uL (0-0.7); Eosinophils % (A) 2 %; HCT 50.1 % (39.0-53.0); HGB 17.2 gm/dL (13.0-17.5); Lymphocytes # (A) 1.5 k/uL (1.0-4.8); Lymphocytes % (A) 9 %; MCH 29.2 pg (25.0-35.0); MCHC 34.4 g/dL (31.0-37.0); MCV 85.1 fL (80.0-100.0); Mean Platelet Volume 7.9; Monocytes # (A) 0.7 k/uL (0-1.0); Monocytes % (A) 4 %; Neutrophils # (A) 13.6 k/uL (1.3-7.7); Neutrophils % (A) 84 %; Platelet Count 442 k/uL (150-450); RBC 5.89 m/uL (4.30-5.90); RDW 12.9 % (11.5-15.5); WBC 16.2 k/uL (3.8-10.6)
[2017-08-10 18:40] LABS: ALT 45 U/L (21-72); AST 36 U/L (17-59); Albumin 5.6 g/dL (3.5-5.0); Alkaline Phosphatase 74 U/L (38-126); Amylase 62 U/L (30-110); Anion Gap 22 mmol/L; Blood Urea Nitrogen 11 mg/dL (9-20); Carbon Dioxide 22 mmol/L (22-30); Chloride 97 mmol/L (98-107); Glucose 100 mg/dL (74-99); Lipase 41 U/L (23-300); Sodium 141 mmol/L (137-145); Total Bilirubin 1.8 mg/dL (0.2-1.3); Total Protein 8.9 g/dL (6.3-8.2)
[2017-08-10] MEDS: KETOROLAC 30 MG/ML 1 ML VIAL IVP PRN (18:43)
[2017-08-10 19:16] LABS: Appearance,Urine Clear (Clear); Bacteria,Urine Rare /hpf; Bilirubin,Urine Negative (Negative); Blood,Urine Small (Negative); Budding Yeast,Urine Occasional /hpf; Color,Urine Yellow; Glucose,Urine (UA) Negative (Negative); Ketones,Urine 3+ (Negative); Leukocyte Esterase,Urine Negative (Negative); Mucus,Urine Rare /hpf; Nitrite,Urine Negative (Negative); PH, Urine 8.5 (5.0-8.0); Protein,Urine 2+ (Negative); RBC,Urine 43 /hpf (0-5); Specific Gravity,Urine 1.027 (1.001-1.035); Urobilinogen,Urine <2.0 mg/dL (<2.0)
[2017-08-10] MEDS ORDERED: AMITRIPTYLINE HCL 25 MG TAB PO SCH (22:00)
[2017-08-10] MEDS ORDERED: SCOPOLAMINE 1.5MG/72HR PATCH TRANSDERM STA (22:03)
[2017-08-10] MEDS: ENOXAPARIN 40 MG/0.4 ML SYRINGE SQ SCH (22:16)
--- NOTE | 2017-08-10 22:35 | HP ---
HISTORY AND PHYSICAL DATE OF SERVICE: 08/10/2017 PRESENTING COMPLAINT: Vomiting. HISTORY OF PRESENTING COMPLAINT: This pleasant gentleman, 32 years of age, follows with Dr. Sher Lewis. Chronic stable medical conditions include lower back pain. The patient has been actively trying to lose weight. Has lost about 65 pounds in last 6 to 7 months. The patient has lost 65 pounds. The patient has a known diagnosis of cyclical vomiting syndrome. The patient started off in early hours of today with vomiting many times, increasing abdominal pain. Did have a bout of perspiration. No fever, no chills, having his regular bowel movement once a day. Denies any fever and chills. Did get IV pain medications, IV antiemetics. Feels a bit better. REVIEW OF SYSTEMS: CONSTITUTIONAL: Tired. HEENT none. RESPIRATORY none. CARDIOVASCULAR none. GASTROINTESTINAL: As above. GENITOURINARY: None. MUSCULOSKELETAL: Chronic low back pain. DERMATOLOGICAL, HEMATOLOGIC, LYMPHATICS: None. PSYCHIATRY: Some anxiety. NEUROLOGICAL: None. PAST MEDICAL HISTORY: Of cyclic vomiting syndrome, GERD, chronic low back pain, obesity. PAST SURGICAL HISTORY: Appendectomy and cholecystectomy. SOCIAL HISTORY: Lives with girlfriend and 2 children. The patient does work with a [employer] company. Occasionally does medical marijuana. FAMILY HISTORY: Reviewed, noncontributory to presentation. HOME MEDICATIONS: Home medications are: 1. Zofran 8 mg q.8h p.r.n. 2. Diazepam 5 mg rectal once p.r.n. 3. Omeprazole 20 mg with supper. 4. Motrin 400 mg q.6h p.r.n. 5. Amitriptyline 25 mg q.h.s. ALLERGIES: None. PHYSICAL EXAMINATION: VITAL SIGNS: Temperature 99, pulse 72, respiratory 20, blood pressure 157/92, pulse ox 100% on room air. GENERAL APPEARANCE: Well built, BMI 33.9, sitting up, tired appearing. EYES: Pupils are equal. Conjunctivae normal. HEENT: External appearance of nose and ears normal. Oral cavity normal. NECK: JVD not raised. Mass not palpable. RESPIRATORY: Effort normal. LUNGS: Are clear. CARDIOVASCULAR: 1st and 2nd sounds normal. No edema. LYMPHATICS: No lymph nodes palpable in the neck, axillae or groin. PSYCHIATRY: Alert and oriented times three. Mood and affect normal. ABDOMEN: There is mild abdomen tenderness. No guarding or rigidity. INVESTIGATIONS: White count 16.2, potassium 4.0, BUN and creatinine is normal. ASSESSMENT: 1. Acute flare up of cyclical vomiting syndrome. 2. Chronic low back pain from herniated disc. 3. Hyperbilirubinemia. 4. Hypercalcemia probably from dehydration from volume loss. 5. Reactive leukocytosis. 6. Obesity BMI 33.9. The patient actively lost about 65 pounds. PLAN: Patient is put on IV Toradol, Ativan p.r.n., Zofran, IV Protonix. We will also order a scopolamine patch and IV saline, subcu heparin for DVT prophylaxis. Care was discussed with the patient. The patient will be on clear liquids and we will advance diet tomorrow as tolerated. MMODL / IJN: [id number] /
[2017-08-11] MEDS: KETOROLAC 30 MG/ML 1 ML VIAL IVP PRN ×2 (00:39→08:42)
[2017-08-11] MEDS: ENOXAPARIN 40 MG/0.4 ML SYRINGE SQ SCH (08:44)
[2017-08-11] MEDS ORDERED: PANTOPRAZOLE 40 MG/10 ML VIAL IV SCH (09:00)
[2017-08-11 15:18] VITALS: BP 127/78; PULSE 65; RESP 17; TEMP 98.6
[2017-08-11] MEDS ORDERED: NON-FORMULARY DRUG (Omeprazole [Omeprazole] 20 MG) PO SCH (17:30)
--- NOTE | 2017-08-12 07:10 | DS ---
DISCHARGE SUMMARY DATE OF ADMISSION: 08/10/2017. DATE OF DISCHARGE: August 11, 2017. FINAL DIAGNOSES: 1. Acute flare-up of cyclical vomiting syndrome. 2. Chronic low back pain from herniated disc in the lumbar area. 3. Hyperbilirubinemia. 4. Hypercalcemia from dehydration from volume loss. 5. Reactive leukocytosis. 6. Obesity BMI 33.9. HOSPITAL COURSE: This patient presented with flare up of cyclical vomiting syndrome. Does respond well to IV fluids, scopolamine patch, and antiemetics. At the time of discharge, patient is doing better, tolerating a diet. Care was discussed with the patient. EXAMINATION: Abdomen soft, nontender. Lungs are clear. DISCHARGE MEDICATIONS: 1. Amitriptyline 25 mg q.h.s. 2. Omeprazole 20 mg with supper. 3. Zofran 8 mg q.8h p.r.n. The patient has been successful in losing weight. Follow up with Dr. Sher Lewis on August 16, 2017. Diet: Soft bland. Copy to Dr. Sher Lewis. MMJENIFFERL / HUMBLEN: [id number] /
== END 2017-08-11 16:05 | disposition home or self-care (01) ==
LOC: EC 15:56 → 5MS5E 18:44 → INTOOBSV 18:44 → UNDODISIN 08-11 16:05
PROVIDERS: ADMIT Hospitalist; ATTEND Hospitalist
DX: G43.A1 Cyclical vomiting, in migraine, intractable (principal); G89.29 Other chronic pain; E86.0 Dehydration; R17 Unspecified jaundice; E83.52 Hypercalcemia; K21.9 Gastro-esophageal reflux disease without esophagitis; M51.26 Other intervertebral disc displacement, lumbar region; J45.909 Unspecified asthma, uncomplicated; D72.828 Other elevated white blood cell count; F41.9 Anxiety disorder, unspecified; E66.9 Obesity, unspecified; Z68.33 Body mass index [BMI] 33.0-33.9, adult; Z79.899 Other long term (current) drug therapy; Z87.891 Personal history of nicotine dependence; Z90.89 Acquired absence of other organs; Z90.49 Acquired absence of other specified parts of digestive tract; Z83.3 Family history of diabetes mellitus; Z84.89 Family history of other specified conditions
CPT/HCPCS: 96376 ×2; 96372 ×3; 96375 ×2; 96361; 96374; 99284 ×2; 36415; 80053; 82150; 83690; 85025; 81001; 74018; G0378 ×2; J2060; J1200; J0500; J2550; J2765; J2405 ×2; J1650 ×2; J1885 ×2; J2270; C9113; J1170

== ENCOUNTER 2017-08-11 20:07 | Emergency (ER) | payer OTHER ==
[2017-08-11 20:29] VITALS: TEMP 98.7
[2017-08-11] MEDS ORDERED: SODIUM CHLORIDE 0.9% 1,000 ML IV STA (21:10)
[2017-08-11] MEDS ORDERED: diphenhydrAMINE 50 MG/ML 1 ML VIAL IVP STA (21:10)
[2017-08-11] MEDS ORDERED: METOCLOPRAMIDE 5 MG/ML 2 ML VIAL IVP STA (21:10)
[2017-08-11 21:40] LABS: Basophils % (A) 0 %; Eosinophils % (A) 0 %; HCT 42.2 % (39.0-53.0); HGB 14.6 gm/dL (13.0-17.5); Lymphocytes # (A) 1.7 k/uL (1.0-4.8); Lymphocytes % (A) 13 %; MCH 30.1 pg (25.0-35.0); MCHC 34.6 g/dL (31.0-37.0); MCV 87.1 fL (80.0-100.0); Mean Platelet Volume 7.5; Monocytes # (A) 0.6 k/uL (0-1.0); Monocytes % (A) 5 %; Neutrophils # (A) 10.4 k/uL (1.3-7.7); Neutrophils % (A) 81 %; Platelet Count 313 k/uL (150-450); RBC 4.84 m/uL (4.30-5.90); RDW 12.9 % (11.5-15.5); WBC 12.9 k/uL (3.8-10.6)
[2017-08-11 21:42] LABS: ALT 48 U/L (21-72); AST 30 U/L (17-59); Albumin 4.4 g/dL (3.5-5.0); Alkaline Phosphatase 57 U/L (38-126); Amylase 69 U/L (30-110); Anion Gap 15 mmol/L; Blood Urea Nitrogen 13 mg/dL (9-20); Calcium 9.7 mg/dL (8.4-10.2); Carbon Dioxide 23 mmol/L (22-30); Chloride 102 mmol/L (98-107); Glucose 96 mg/dL (74-99); Lipase 75 U/L (23-300); Potassium 3.8 mmol/L (3.5-5.1); Sodium 140 mmol/L (137-145); Total Bilirubin 1.5 mg/dL (0.2-1.3); Total Protein 6.7 g/dL (6.3-8.2)
[2017-08-11] MEDS ORDERED: DICYCLOMINE 10 MG/ML 2 ML AMP IM STA (21:58)
[2017-08-11] MEDS ORDERED: MORPHINE SULFATE 2 MG/ML SYRINGE IVP STA (21:58)
[2017-08-11] MEDS ORDERED: FAMOTIDINE 20 MG/2 ML VIAL IV STA (21:58)
--- NOTE | 2017-08-11 22:00 | ED ---
Nausea/Vomiting/Diarrhea HPI - General Chief complaint: Nausea/Vomiting/Diarrhea Stated complaint: Vomiting Time Seen by Provider: 08/11/17 20:57 Source: patient, RN notes reviewed Mode of arrival: ambulatory Limitations: no limitations - History of Present Illness Initial comments: This is a 32-year-old male who presents to the emergency department with chief complaint of nausea and vomiting. Patient states that he has cyclic vomiting. He states that he was admitted yesterday for nausea and vomiting and was discharged home today. Patient states that he went to take a shower when he got home and developed sudden onset of nausea and vomiting. This was around 3 or 4 PM this evening. Patient also admits to generalized abdominal pain. He denies any fevers or chills, chest pain or shortness of breath, diarrhea or constipation. - Related Data Home Medications Medication Instructions Recorded Confirmed Amitriptyline HCl 25 mg PO HS 07/14/17 08/11/17 Omeprazole 20 mg PO AC-SUPPER 07/14/17 08/11/17 Ondansetron [Zofran ODT] 8 mg PO Q8HR PRN 08/10/17 08/11/17 Allergies Allergy/AdvReac Type Severity Reaction Status Date / Time No Known Allergies Allergy Verified 08/11/17 20:56 Review of Systems ROS Statement: Those systems with pertinent positive or pertinent negative responses have been documented in the HPI. ROS Other: All systems not noted in ROS Statement are negative. Past Medical History Past Medical History: Asthma, GERD/Reflux Additional Past Medical History / Comment(s): cyclic vomiting syndrome, back pain '"RUPTURE DISC" History of Any Multi-Drug Resistant Organisms: None Reported Past Surgical History: Adenoidectomy, Appendectomy, Cholecystectomy Additional Past Surgical History / Comment(s): EGD Past Anesthesia/Blood Transfusion Reactions: No Reported Reaction Past Psychological History: Anxiety Smoking Status: Former smoker Past Alcohol Use History: None Reported Past Drug Use History: Marijuana - Past Family History Father Family Medical History: No Reported History Mother Family Medical History: Diabetes Mellitus Additional Family Medical History / Comment(s): severe food allergies General Exam - General Exam Comments Initial Comments: General: Awake and alert, well-developed; patient actively throwing up at bedside. Vomitus does appear bilious. HEENT: Head atraumatic, normocephalic. Pupils are equal, round and reactive to light. Extraocular movements intact. Oropharynx moist without erythema or exudate. Neck: Supple. Normal ROM. Cardiovascular: Regular rate and rhythm. No murmurs, rubs or gallops. Chest symmetrical. Respiratory: Lungs clear to auscultation bilaterally. No wheezes, rales or rhonchi. Normal respiratory effort with no use of accessory muscles. Abdomen: Soft, non-distended. Generalized tenderness on palpation. No rigidity , rebound or guarding. Hyperactive bowel sounds in all 4 quadrants. Musculoskeletal: Normal ROM, no tenderness bilateral upper and lower extremities. Ambulating normally. Skin: [place], warm and dry without rashes or lesions. Neurological: Alert and oriented x3. CN II-XII grossly intact. Speech is fluent and answers are appropriate. No focal neuro deficits. Psychiatric: Normal mood and affect. No overt signs of depression or anxiety noted. Limitations: no limitations Course Vital Signs 08/11/17 08/11/17 08/11/17 20:26 21:33 23:57 Temperature 98.7 F Pulse Rate 68 60 74 Respiratory 18 20 18 Rate Blood Pressure 109/56 156/70 109/59 O2 Sat by Pulse 95 98 96 Oximetry 08/12/17 00:56 Temperature Pulse Rate 71 Respiratory 18 Rate Blood Pressure 112/55 O2 Sat by Pulse 99 Oximetry - Reevaluation(s) Reevaluation #1: 08/11/17 23:33 At this time, patient states that she has a significant improvement in his symptoms. He states he still feeling nauseous and in pain. Medical Decision Making - Medical Decision Making This is a 32-year-old male with cyclic vomiting who presents to the emergency department with chief complaint of nausea and vomiting. Patient was discharged from the hospital today for her cyclic vomiting. He states when he returned home he again developed nausea and vomiting. He states that he has been vomiting since approximately 4 PM this evening. Patient given antiemetics and pain medication while in the emergency department. His symptoms are now under control. The results were discussed with patient. He states that he is feeling significantly improved and would like to be discharged home. Patient does not want to be admitted for further management. Vital signs are stable and patient is in no acute distress. He will be discharged home at this time. All questions answered. - Lab Data Result diagrams: 08/11/17 21:22 08/11/17 21:22 Lab Results 08/11/17 08/11/17 Range/Units 21:22 21:22 WBC 12.9 H (3.8-10.6) k/uL RBC 4.84 (4.30-5.90) m/uL Hgb 14.6 (13.0-17.5) gm/dL Hct 42.2 (39.0-53.0) % MCV 87.1 (80.0-100.0) fL MCH 30.1 (25.0-35.0) pg MCHC 34.6 (31.0-37.0) g/dL RDW 12.9 (11.5-15.5) % Plt Count 313 (150-450) k/uL Neutrophils % 81 % Lymphocytes % 13 % Monocytes % 5 % Eosinophils % 0 % Basophils % 0 % Neutrophils # 10.4 H (1.3-7.7) k/uL Lymphocytes # 1.7 (1.0-4.8) k/uL Monocytes # 0.6 (0-1.0) k/uL Eosinophils # 0.0 (0-0.7) k/uL Basophils # 0.0 (0-0.2) k/uL Sodium 140 (137-145) mmol/L Potassium 3.8 (3.5-5.1) mmol/L Chloride 102 (98-107) mmol/L Carbon Dioxide 23 (22-30) mmol/L Anion Gap 15 mmol/L BUN 13 (9-20) mg/dL Creatinine 0.80 (0.66-1.25) mg/dL Est GFR (CKD-EPI)AfAm >90 (>60 ml/min/1.73 sqM) Est GFR (CKD-EPI)NonAf >90 (>60 ml/min/1.73 sqM) Glucose 96 (74-99) mg/dL Calcium 9.7 (8.4-10.2) mg/dL Total Bilirubin 1.5 H (0.2-1.3) mg/dL AST 30 (17-59) U/L ALT 48 (21-72) U/L Alkaline Phosphatase 57 (38-126) U/L Total Protein 6.7 (6.3-8.2) g/dL Albumin 4.4 (3.5-5.0) g/dL Amylase 69 (30-110) U/L Lipase 75 (23-300) U/L Disposition Clinical Impression: Nausea and vomiting Disposition: HOME SELF-CARE Condition: Good Instructions: Acute Nausea and Vomiting (ED) Additional Instructions: Please follow up with primary care provider within 1-2 days. Return to emergency department if symptoms should worsen or any concerns arise. Is patient prescribed a controlled substance at d/c from ED?: No Referrals: Sher Lewis MD [Primary Care Provider] - 1-2 days Time of Disposition: 01:12
[2017-08-11] MEDS ORDERED: KETOROLAC 30 MG/ML 1 ML VIAL IVP STA (23:34)
[2017-08-11] MEDS ORDERED: ONDANSETRON 4 MG/2 ML VIAL IVP STA (23:34)
[2017-08-11 23:59] VITALS: RESP 18
[2017-08-12 01:01] VITALS: BP 112/55; PULSE 71
== END 2017-08-12 01:30 | disposition home or self-care (01) ==
LOC: EC 20:07
DX: R11.2 Nausea with vomiting, unspecified (principal); R10.84 Generalized abdominal pain; K21.9 Gastro-esophageal reflux disease without esophagitis; F41.9 Anxiety disorder, unspecified; Z87.891 Personal history of nicotine dependence; Z79.899 Other long term (current) drug therapy; Z90.49 Acquired absence of other specified parts of digestive tract
CPT/HCPCS: 36415; 80053; 82150; 83690; 85025; 99284; 96374; 96375 ×5; 96361; 96372; J1200; J0500; J2765; J2405; J1885; J2270

== ENCOUNTER 2017-08-27 11:29 | Observation (INO) | payer OTHER ==
[2017-08-27] MEDS ORDERED: METOCLOPRAMIDE 5 MG/ML 2 ML VIAL IVP STA (12:21)
[2017-08-27] MEDS ORDERED: DICYCLOMINE 10 MG/ML 2 ML AMP IM STA (12:21)
[2017-08-27] MEDS ORDERED: diphenhydrAMINE 50 MG/ML 1 ML VIAL IVP STA (12:21)
[2017-08-27] MEDS ORDERED: KETOROLAC 30 MG/ML 1 ML VIAL IVP STA (12:21)
[2017-08-27] MEDS ORDERED: SODIUM CHLORIDE 0.9% 1,000 ML IV STA (12:21)
[2017-08-27] MEDS ORDERED: MORPHINE SULFATE 4 MG/ML SYRINGE IV STA (12:21)
[2017-08-27] MEDS ORDERED: FAMOTIDINE 20 MG/2 ML VIAL IV STA (12:22)
--- NOTE | 2017-08-27 12:25 | ED ---
Abdominal Pain HPI - General Source: patient Mode of arrival: wheelchair Limitations: no limitations <Yanely Trevino - Last Filed: 08/27/17 17:25> <Diamante Cox - Last Filed: 08/27/17 20:45> - General Chief Complaint: Abdominal Pain Stated Complaint: Vomiting Time Seen by Provider: 08/27/17 12:03 - History of Present Illness Initial Comments: 32-year-old male patient with past medical history significant for cyclic vomiting syndrome and chronic abdominal pain presents to the emergency department today with complaints of vomiting and abdominal pain. Patient states that symptoms started on and off yesterday. States he has been unable to keep down his home pain medication. Patient states he has vomiting nonstop since early this morning. Patient states he is having right upper quadrant and midepigastric abdominal pain. He describes the pain as sharp and stabbing. Patient states pain does radiate through to his back. Patient denies any known fevers or chills. He denies any difficulty with bowel movements or urination. Patient denies any recent rash, shortness breath, chest pain, back pain, numbness, tingling, dizziness, weakness, hematuria, dysuria, urinary urgency, urinary frequency, headache, visual changes, or any other complaints. (Yanely Trevino) - Related Data Home Medications Medication Instructions Recorded Confirmed Amitriptyline HCl 50 mg PO HS 07/14/17 08/27/17 Omeprazole 20 mg PO AC-SUPPER 07/14/17 08/27/17 Ondansetron [Zofran ODT] 8 mg PO Q8HR PRN 08/10/17 08/27/17 HYDROcodone/APAP 7.5-325MG [[place] 1 tab PO Q6HR PRN 08/27/17 08/27/17 7.5-325] Allergies Allergy/AdvReac Type Severity Reaction Status Date / Time No Known Allergies Allergy Verified 08/27/17 16:45 Review of Systems ROS Other: All systems not noted in ROS Statement are negative. <Yanely Trevino - Last Filed: 08/27/17 17:25> ROS Other: All systems not noted in ROS Statement are negative. <Diamante Cox - Last Filed: 08/27/17 20:45> ROS Statement: Those systems with pertinent positive or pertinent negative responses have been documented in the HPI. Past Medical History Past Medical History: Asthma, GERD/Reflux Additional Past Medical History / Comment(s): cyclic vomiting syndrome, back pain '"RUPTURE DISC" History of Any Multi-Drug Resistant Organisms: None Reported Past Surgical History: Adenoidectomy, Appendectomy, Cholecystectomy Additional Past Surgical History / Comment(s): EGD Past Anesthesia/Blood Transfusion Reactions: No Reported Reaction Past Psychological History: Anxiety Smoking Status: Former smoker Past Alcohol Use History: None Reported Past Drug Use History: Marijuana - Past Family History Father Family Medical History: No Reported History Mother Family Medical History: Diabetes Mellitus Additional Family Medical History / Comment(s): severe food allergies <Yanely Trevino M - Last Filed: 08/27/17 17:25> General Exam Limitations: no limitations General appearance: alert, in no apparent distress, other (This well-developed, well-nourished adult male patient in mild distress related to frequent vomiting and pain. Vital signs upon presentation are temperature 98.3F, pulse 80, respirations 18, blood pressure 147/90, pulse ox 100% on room air.) Eye exam: Present: normal appearance, PERRL, EOMI. Absent: scleral icterus, conjunctival injection, periorbital swelling ENT exam: Present: normal exam, normal oropharynx, mucous membranes moist Respiratory exam: Present: normal lung sounds bilaterally. Absent: respiratory distress, wheezes, rales, rhonchi, stridor Cardiovascular Exam: Present: regular rate, normal rhythm, normal heart sounds. Absent: systolic murmur, diastolic murmur, rubs, gallop, clicks GI/Abdominal exam: Present: soft, tenderness (Midepigastric and right upper quadrant tenderness.), normal bowel sounds. Absent: distended, guarding, rebound, rigid Neurological exam: Present: alert, oriented X3, CN II-XII intact Psychiatric exam: Present: normal affect, normal mood Skin exam: Present: warm, dry, intact, normal color. Absent: rash <Yanely Trevino M - Last Filed: 08/27/17 17:25> Vital Signs 08/27/17 08/27/17 08/27/17 11:47 13:53 16:09 Temperature 98.3 F 98.1 F Pulse Rate 80 59 L 87 Respiratory 18 18 18 Rate Blood Pressure 147/90 148/63 163/81 O2 Sat by Pulse 100 97 99 Oximetry 08/27/17 17:03 Temperature 98.1 F Pulse Rate 85 Respiratory 18 Rate Blood Pressure 154/70 O2 Sat by Pulse 98 Oximetry Medical Decision Making - Lab Data Result diagrams: 08/27/17 12:44 08/27/17 12:44 <Yanely Trevino - Last Filed: 08/27/17 17:25> - Lab Data Result diagrams: 08/27/17 12:44 08/27/17 12:44 <Diamante Cox - Last Filed: 08/27/17 20:45> - Medical Decision Making 32-year-old male patient presents the emergency department today for complaints of increased vomiting and abdominal pain over the last 24 hours. Patient states that he tried home medications without relief. Physical examination reveals right upper quadrant and midepigastric tenderness. Patient is afebrile. Labs reviewed and does show a mildly elevated white blood cell count , likely reactive from vomiting. Patient hasn't received several medications in the emergency department for both pain and vomiting. He continues to have symptoms. He is unable to tolerate oral intake. We'll admit to the hospital for cyclic vomiting and intractable abdominal pain. Dr. Psot is accepting. (Yanely Trevino) She with a history of cyclic vomiting, was treated with multiple medications in the ER with persistent cyclic vomiting. Decision was made to admit the patient. I discussed the patient's care with Dr. post who accepts the admission. (Diamante Cox) - Lab Data Lab Results 08/27/17 08/27/17 08/27/17 Range/Units 12:44 12:44 13:45 WBC 13.7 H (3.8-10.6) k/uL RBC 5.51 (4.30-5.90) m/uL Hgb 15.9 (13.0-17.5) gm/dL Hct 47.0 (39.0-53.0) % MCV 85.3 (80.0-100.0) fL MCH 28.9 (25.0-35.0) pg MCHC 33.9 (31.0-37.0) g/dL RDW 12.7 (11.5-15.5) % Plt Count 336 (150-450) k/uL Neutrophils % 84 % Lymphocytes % 11 % Monocytes % 4 % Eosinophils % 0 % Basophils % 0 % Neutrophils # 11.6 H (1.3-7.7) k/uL Lymphocytes # 1.5 (1.0-4.8) k/uL Monocytes # 0.5 (0-1.0) k/uL Eosinophils # 0.1 (0-0.7) k/uL Basophils # 0.0 (0-0.2) k/uL Sodium 144 (137-145) mmol/L Potassium 4.6 (3.5-5.1) mmol/L Chloride 110 H (98-107) mmol/L Carbon Dioxide 22 (22-30) mmol/L Anion Gap 12 mmol/L BUN 9 (9-20) mg/dL Creatinine 0.76 (0.66-1.25) mg/dL Est GFR (CKD-EPI)AfAm >90 (>60 ml/min/1.73 sqM) Est GFR (CKD-EPI)NonAf >90 (>60 ml/min/1.73 sqM) Glucose 114 H (74-99) mg/dL Calcium 10.5 H (8.4-10.2) mg/dL Total Bilirubin 1.2 (0.2-1.3) mg/dL AST 29 (17-59) U/L ALT 46 (21-72) U/L Alkaline Phosphatase 56 (38-126) U/L Total Protein 7.9 (6.3-8.2) g/dL Albumin 5.1 H (3.5-5.0) g/dL Amylase 67 (30-110) U/L Lipase 137 (23-300) U/L Urine Color Yellow Urine Appearance Turbid (Clear) Urine pH 5.5 (5.0-8.0) Ur Specific [place] 1.024 (1.001-1.035) Urine Protein 1+ H (Negative) Urine Glucose (UA) Negative (Negative) Urine Ketones 1+ H (Negative) Urine Blood Moderate H (Negative) Urine Nitrite Negative (Negative) Urine Bilirubin Negative (Negative) Urine Urobilinogen 2.0 (<2.0) mg/dL Ur Leukocyte Esterase Negative (Negative) Urine RBC 12 H (0-5) /hpf Urine WBC 2 (0-5) /hpf Ur Squamous Epith Cells <1 (0-4) /hpf Urine Bacteria Rare H (None) /hpf Urine Mucus Few H (None) /hpf Disposition Decision to Admit Reason: Admit from [facility] Decision Date: 08/27/17 Decision Time: 16:46 <Yanely Trevino - Last Filed: 08/27/17 17:25> <Diamante Cox - Last Filed: 08/27/17 20:45> Clinical Impression: Cyclic vomiting syndrome, Intractable abdominal pain Disposition: ADMITTED IP TO THIS [facility] Condition: Serious
[2017-08-27 12:54] LABS: Basophils % (A) 0 %; Eosinophils # (A) 0.1 k/uL (0-0.7); Eosinophils % (A) 0 %; HGB 15.9 gm/dL (13.0-17.5); Lymphocytes # (A) 1.5 k/uL (1.0-4.8); Lymphocytes % (A) 11 %; MCH 28.9 pg (25.0-35.0); MCHC 33.9 g/dL (31.0-37.0); MCV 85.3 fL (80.0-100.0); Mean Platelet Volume 7.6; Monocytes # (A) 0.5 k/uL (0-1.0); Monocytes % (A) 4 %; Neutrophils # (A) 11.6 k/uL (1.3-7.7); Neutrophils % (A) 84 %; Platelet Count 336 k/uL (150-450); RBC 5.51 m/uL (4.30-5.90); RDW 12.7 % (11.5-15.5); WBC 13.7 k/uL (3.8-10.6)
[2017-08-27] MEDS ORDERED: HALOPERIDOL LACTATE 5 MG/ML 1 ML VIAL IVP STA ×2 (12:55→14:23)
[2017-08-27 13:08] LABS: Albumin 5.1 g/dL (3.5-5.0); Amylase 67 U/L (30-110); Anion Gap 12 mmol/L; Calcium 10.5 mg/dL (8.4-10.2); Carbon Dioxide 22 mmol/L (22-30); Chloride 110 mmol/L (98-107); Glucose 114 mg/dL (74-99); Lipase 137 U/L (23-300); Sodium 144 mmol/L (137-145); Total Bilirubin 1.2 mg/dL (0.2-1.3); Total Protein 7.9 g/dL (6.3-8.2)
[2017-08-27 13:10] LABS: Potassium 4.6 mmol/L (3.5-5.1)
[2017-08-27 13:11] LABS: ALT 46 U/L (21-72); AST 29 U/L (17-59); Alkaline Phosphatase 56 U/L (38-126); Blood Urea Nitrogen 9 mg/dL (9-20)
[2017-08-27 13:58] LABS: Appearance,Urine Turbid (Clear); Bacteria,Urine Rare /hpf; Bilirubin,Urine Negative (Negative); Blood,Urine Moderate (Negative); Color,Urine Yellow; Glucose,Urine (UA) Negative (Negative); Ketones,Urine 1+ (Negative); Leukocyte Esterase,Urine Negative (Negative); Mucus,Urine Few /hpf; Nitrite,Urine Negative (Negative); PH, Urine 5.5 (5.0-8.0); Protein,Urine 1+ (Negative); RBC,Urine 12 /hpf (0-5); Specific Gravity,Urine 1.024 (1.001-1.035); Squamous Epithelial Cell,Urine <1 /hpf (0-4); WBC,Urine 2 /hpf (0-5)
[2017-08-27] MEDS ORDERED: MORPHINE SULFATE 4 MG/ML SYRINGE IVP STA (16:22)
[2017-08-27] MEDS ORDERED: NALOXONE 0.4 MG/ML 1 ML VIAL IV PRN (16:23)
[2017-08-27] MEDS: SODIUM CHLORIDE 0.9% 1,000 ML IV SCH (16:44)
[2017-08-27 18:01] VITALS: BMI 33.9
[2017-08-27] MEDS: ONDANSETRON 4 MG/2 ML VIAL IVP PRN (18:09)
[2017-08-27] MEDS: KETOROLAC 30 MG/ML 1 ML VIAL IVP SCH ×2 (18:09→23:34)
[2017-08-27] MEDS ORDERED: ALPRAZolam 0.25 MG TAB PO PRN (20:16)
[2017-08-27] MEDS ORDERED: TEMAZEPAM 15 MG CAP PO PRN (20:16)
[2017-08-27] MEDS ORDERED: HYDROcodone/APAP 7.5-325MG 1 EACH TAB PO PRN (20:17)
[2017-08-27] MEDS ORDERED: cloNIDine HCL 0.1 MG TAB PO PRN (20:21)
--- NOTE | 2017-08-27 21:37 | HP ---
HISTORY AND PHYSICAL CHIEF COMPLAINT: Incessant vomiting and abdominal pain. HISTORY OF PRESENT ILLNESS: This is a 32-year-old gentleman with medical history of asthma, GERD, cyclical vomiting syndrome, history of DJD, history of anxiety, being followed by Dr. Lewis in the outpatient setting. Complaining of abdominal pain as well as incessant vomiting. The patient has cyclic vomiting syndrome as mentioned earlier and the frequency of attacks are increasing, according to him. Because of lack of improvement, the patient came to the emergency room and was admitted for evaluation and treatment. The patient was apparently smoking nonstop yesterday. PAST MEDICAL HISTORY: History of asthma, GERD, cyclic vomiting syndrome, adenoidectomy, history of anxiety. MEDICATIONS: Prior to admission include home medications of: 1. [place] 7.5 every 6 hours p.r.n. 2. Amitriptyline 50 mg p.o. at bedtime. 3. Zofran 8 mg every 8 hours p.r.n. 4. Omeprazole 20 mg p.o. at supper. ALLERGIES: None. FAMILY HISTORY: History of severe food allergies. SOCIAL HISTORY: History of THC. Previous history of smoking. REVIEW OF SYSTEMS: ENT: No diminished hearing or vision. CARDIOVASCULAR: No angina or palpitations. RESPIRATORY: As mentioned earlier. GI: No nausea. : No dysuria or hematuria. NERVOUS SYSTEM: No numbness or weakness. ALLERGY/IMMUNOLOGIC: None. MUSCULOSKELETAL: As mentioned earlier. HEMATOLOGY/ONCOLOGY: No history of anemia. ENDOCRINE: As mentioned earlier. CONSTITUTIONAL: As mentioned. PSYCHIATRY: As mentioned. PHYSICAL EXAMINATION: Alert, oriented x3. Pulse 87, blood pressure 163/81, respirations 18, temperature 98.1, pulse ox 99% on room air. HEENT: Conjunctivae normal. Oral mucosa moist. NECK: No jugular venous distention. No carotid bruits. No lymph node enlargement. CARDIOVASCULAR: S1 and S2 muffled. LUNGS: Breath sounds diminished at the bases. No rhonchi, no crackles. ABDOMEN: Soft, mild diffuse tenderness present. EXTREMITIES: Legs, no edema no swelling. NERVOUS SYSTEM: Higher functions as mentioned. Moves all 4 limbs. No focal deficits. LYMPHATICS: No lymph node enlargement in the neck or axilla. SKIN: No rash. LABS: WBC 13.7, neutrophils 11.6, calcium is 10.5. ASSESSMENT: 1. Abdominal pain and vomiting, possible cyclical vomiting syndrome acute exacerbation. 2. Asthma. 3. Gastroesophageal reflux disease. 4. History of back pain and degenerative joint disease. 5. History of anxiety. 6. History of THC. RECOMMENDATIONS: This 32-year-old gentleman presented with multiple complex medica issues. We will monitor the patient closely. Continue current management and symptomatic treatment. Otherwise at this time I recommend symptomatic treatment of the pain and Protonix. Closely monitor. Resume the home medications. DVT prophylaxis. Incentive spirometry. Prognosis guarded because of multiple complex medical issues, which I discussed at length with the patient who understood and agreed. Further recommendations to follow. MMODL / IJN: [id number] /
[2017-08-27] MEDS: HEPARIN SODIUM,PORCINE 5,000 UNIT/ML 1 ML VIAL SQ SCH (21:50)
[2017-08-27] MEDS: AMITRIPTYLINE HCL 50 MG TAB PO SCH (21:50)
[2017-08-27] MEDS: PANTOPRAZOLE 40 MG/10 ML VIAL IVP SCH (21:50)
[2017-08-27] MEDS: MORPHINE SULFATE 2 MG/ML SYRINGE IVP PRN (21:51)
[2017-08-28] MEDS: ONDANSETRON 4 MG/2 ML VIAL IVP PRN (02:32)
[2017-08-28] MEDS: MORPHINE SULFATE 2 MG/ML SYRINGE IVP PRN ×5 (02:32→20:52)
[2017-08-28 03:12] LABS: Amphetamine Screen,Urine Not Detected (NotDetected); Barbiturate Screen,Urine Not Detected (NotDetected); Benzodiazepines Screen,Urine Not Detected (NotDetected); Cocaine Screen,Urine Not Detected (NotDetected); Methadone Screen, Urine Not Detected (NotDetected); Opiate Screen,Urine Detected (NotDetected); Oxycodone Screen, Urine Not Detected (NotDetected); Phencyclidine Screen,Urine Not Detected (NotDetected); Tricyclic Antidepressant,Urine Detected (NotDetected); Urn Cannabinoid Scrn Detected (NotDetected)
[2017-08-28] MEDS: KETOROLAC 30 MG/ML 1 ML VIAL IVP SCH ×4 (06:03→23:48)
[2017-08-28] MEDS: SODIUM CHLORIDE 0.9% 1,000 ML IV SCH ×2 (06:03→17:50)
[2017-08-28 08:11] LABS: Anion Gap 7 mmol/L; Blood Urea Nitrogen 12 mg/dL (9-20); Calcium 9.6 mg/dL (8.4-10.2); Carbon Dioxide 27 mmol/L (22-30); Chloride 106 mmol/L (98-107); Glucose 86 mg/dL (74-99); Sodium 140 mmol/L (137-145)
[2017-08-28 08:12] LABS: Basophils % (A) 0 %; Eosinophils # (A) 0.1 k/uL (0-0.7); Eosinophils % (A) 1 %; HCT 40.2 % (39.0-53.0); HGB 13.8 gm/dL (13.0-17.5); Lymphocytes # (A) 2.9 k/uL (1.0-4.8); Lymphocytes % (A) 28 %; MCH 29.5 pg (25.0-35.0); MCHC 34.3 g/dL (31.0-37.0); MCV 86.1 fL (80.0-100.0); Mean Platelet Volume 7.7; Monocytes # (A) 0.7 k/uL (0-1.0); Monocytes % (A) 7 %; Neutrophils # (A) 6.4 k/uL (1.3-7.7); Neutrophils % (A) 62 %; Platelet Count 272 k/uL (150-450); RBC 4.67 m/uL (4.30-5.90); RDW 12.8 % (11.5-15.5); WBC 10.4 k/uL (3.8-10.6)
[2017-08-28] MEDS: PANTOPRAZOLE 40 MG/10 ML VIAL IVP SCH ×2 (08:40→20:01)
[2017-08-28] MEDS: HEPARIN SODIUM,PORCINE 5,000 UNIT/ML 1 ML VIAL SQ SCH ×2 (08:40→20:17)
--- NOTE | 2017-08-28 09:03 | US ---
EXAMINATION TYPE: US gallbladder DATE OF EXAM: 08/28/2017 COMPARISON: CT 04/12/2016, US 06/03/2011 CLINICAL HISTORY: abd pain, vomiting. EXAM MEASUREMENTS: Liver Length: 19.0 cm Gallbladder Wall: Surgically absent CBD: 0.5 cm Right Kidney: 11.5 x 6.1 x 5.7 cm Pancreas: Obscured by bowel gas Liver: Enlarged, heterogeneous Gallbladder: Surgically absent Evidence for sonographic Claros's sign: Yes CBD: wnl as visualized, distal portion obscured by bowel gas Right Kidney: No hydronephrosis or masses seen IMPRESSION: 1. Liver is enlarged and heterogeneous correlate for hepatocellular disease or hepatitis. Diffuse hep atocellular disease in the differential diagnosis.
[2017-08-28] MEDS: AMITRIPTYLINE HCL 50 MG TAB PO SCH (20:17)
--- NOTE | 2017-08-28 20:20 | PN ---
PROGRESS NOTE DATE OF SERVICE: 08/28/2017 This 32-year-old gentleman who was admitted with incessant vomiting and cyclic vomiting syndrome exacerbation, is being closely monitored. The gallbladder ultrasound was done this morning and showed liver enlarged, diffuse hepatocellular disease possibly, otherwise no other findings. There is no history of fever, rigors. No headache, loss of consciousness, seizures. PHYSICAL EXAM: Alert and oriented x3. Pulse 68, blood pressure 130/59, respiration 18, temperature 96.8, pulse ox 97%. HEENT: Conjunctivae normal. Oral mucosa moist. NECK: No jugular venous distention. CARDIOVASCULAR: S1, S2 muffled. RESPIRATORY: Breath sounds diminished in the bases. No rhonchi. No crackles. ABDOMEN: Soft, nontender. No mass palpable. LEGS: No edema, no swelling. NERVOUS SYSTEM: No focal deficits. LABS: CBC, BMP within normal limits. ASSESSMENT: 1. Abdominal pain, vomiting, possible cyclic vomiting syndrome acute exacerbation. 2. Asthma. 3. Gastroesophageal reflux disease. 4. History of back pain and degenerative joint disease. 5. History of anxiety. 6. History of THC. RECOMMENDATIONS AND DISCUSSION: I recommend to continue current management and symptomatic treatment. Otherwise closely monitor. Advance diet. Guarded prognosis. Further recommendations to follow. MMODL / IJN: [id number] /
[2017-08-29] MEDS: MORPHINE SULFATE 2 MG/ML SYRINGE IVP PRN ×2 (02:50→08:19)
[2017-08-29] MEDS: KETOROLAC 30 MG/ML 1 ML VIAL IVP SCH ×2 (05:46→11:12)
[2017-08-29 07:06] VITALS: BP 117/74; PULSE 67; RESP 18; TEMP 98.6
[2017-08-29] MEDS: ONDANSETRON 4 MG/2 ML VIAL IVP PRN (08:18)
[2017-08-29] MEDS: PANTOPRAZOLE 40 MG/10 ML VIAL IVP SCH (08:18)
[2017-08-29] MEDS: HEPARIN SODIUM,PORCINE 5,000 UNIT/ML 1 ML VIAL SQ SCH (08:19)
[2017-08-29] MEDS: SODIUM CHLORIDE 0.9% 1,000 ML IV SCH (09:08)
[2017-08-29 09:50] LABS: Basophils % (A) 0 %; Eosinophils # (A) 0.1 k/uL (0-0.7); Eosinophils % (A) 2 %; HCT 39.3 % (39.0-53.0); HGB 13.4 gm/dL (13.0-17.5); Lymphocytes # (A) 1.9 k/uL (1.0-4.8); Lymphocytes % (A) 24 %; MCH 29.5 pg (25.0-35.0); MCHC 34.2 g/dL (31.0-37.0); MCV 86.2 fL (80.0-100.0); Mean Platelet Volume 7.7; Monocytes # (A) 0.5 k/uL (0-1.0); Monocytes % (A) 6 %; Neutrophils # (A) 5.2 k/uL (1.3-7.7); Neutrophils % (A) 67 %; Platelet Count 277 k/uL (150-450); RBC 4.56 m/uL (4.30-5.90); RDW 12.7 % (11.5-15.5); WBC 7.7 k/uL (3.8-10.6)
[2017-08-29 09:55] LABS: Anion Gap 8 mmol/L; Blood Urea Nitrogen 15 mg/dL (9-20); Calcium 9.3 mg/dL (8.4-10.2); Carbon Dioxide 26 mmol/L (22-30); Chloride 106 mmol/L (98-107); Glucose 102 mg/dL (74-99); Potassium 4.2 mmol/L (3.5-5.1); Sodium 140 mmol/L (137-145)
--- NOTE | 2017-08-29 20:32 | DS ---
DISCHARGE SUMMARY DATE OF SERVICE: 08/29/2017. FINAL DIAGNOSES: Abdominal pain, vomiting, possible cyclic vomiting syndrome, acute exacerbation, asthma, GERD, history of back pain, DJD, history of anxiety, THC. DISCHARGE DISPOSITION: The patient is being discharged in stable condition with guarded prognosis. HISTORY OF PRESENT ILLNESS: This 32-year-old gentleman with past medical history of multiple medical problems was admitted with abdominal pain, vomiting and cyclic vomiting, acute exacerbation, treated symptomatically. Patient improved significantly. On exam, vital signs are stable. Cardiology: S1, S2. Abdomen soft. Nontender. Central nervous system: No focal deficits. DISCHARGE ADVICE AND MEDICATIONS: 1. Diet is cardiac diet. 2. Activity limited until followup. 3. Follow up with Dr. Lewis in 2-3 days. MEDICATIONS: Medications will be as follows: 1. Amitriptyline 50 mg p.o. q.h.s. 2. [place] 7.5 q.6h p.r.n. 3. Zofran 8 mg q.8h p.r.n. 4. Protonix 40 mg p.o. b.i.d. MMODL / IJN: [id number] /
== END 2017-08-29 13:02 | disposition home or self-care (01) ==
LOC: EC 11:29 → INTOOBSV 16:26 → 4MS4W 16:26 → UNDODISIN 08-29 13:02
PROVIDERS: ADMIT Internal Medicine; ATTEND Internal Medicine
DX: R10.11 Right upper quadrant pain (principal); R10.13 Epigastric pain; R11.10 Vomiting, unspecified; J45.901 Unspecified asthma with (acute) exacerbation; M19.90 Unspecified osteoarthritis, unspecified site; G89.29 Other chronic pain; D72.829 Elevated white blood cell count, unspecified; F41.9 Anxiety disorder, unspecified; M54.9 Dorsalgia, unspecified; K21.9 Gastro-esophageal reflux disease without esophagitis; Z83.3 Family history of diabetes mellitus; Z79.899 Other long term (current) drug therapy; Z90.49 Acquired absence of other specified parts of digestive tract; Z79.891 Long term (current) use of opiate analgesic; G43.A0 Cyclical vomiting, in migraine, not intractable
CPT/HCPCS: 96376 ×4; 96361 ×3; 96372 ×4; 96375 ×2; 96374; 99284; 36415; 80053; 80048 ×2; 82150; 83690; 85025 ×3; 81001; 80306; 87086; 76705; G0378 ×3; J2270 ×4; J1200; J0500; J1630; J1644 ×3; J2765; J2405 ×3; J1885 ×3; C9113 ×3

== ENCOUNTER 2017-09-27 20:26 | Inpatient (IN) | payer OTHER ==
--- NOTE | 2017-09-27 21:01 | ED ---
General Adult HPI - General Chief complaint: Chest Pain Stated complaint: chest pain/vomiting Time Seen by Provider: 09/27/17 21:01 Source: patient Mode of arrival: wheelchair Limitations: no limitations - History of Present Illness Initial comments: Jesus is a 32-year-old male with a past history of cyclic vomiting who presents to the emergency department today for evaluation of burning epigastric and retrosternal chest pain, nausea and vomiting. Patient reports that he's had symptoms for approximately 2 days. They've been progressively worsening. Today he was unable to hold down anything in the discomfort in his chest became worse which prompted his family to bring him to the ER for further evaluation. Patient reports he has a history of cyclic vomiting, he is currently on amitriptyline for treatment of this, he follows with gastroenterology and has underwent extensive testing including EGD in the past with no definitive diagnosis. Patient is an everyday marijuana smoker but states that in the past he has attempted to stop smoking marijuana and it did not improve his symptoms. Patient has no previous cardiac history. - Related Data Home Medications Medication Instructions Recorded Confirmed Amitriptyline HCl 50 mg PO HS 07/14/17 08/27/17 Ondansetron [Zofran ODT] 8 mg PO Q8HR PRN 08/10/17 08/27/17 HYDROcodone/APAP 7.5-325MG [[place] 1 tab PO Q6HR PRN 08/27/17 08/27/17 7.5-325] Previous Rx's Medication Instructions Recorded Pantoprazole Sodium [Protonix] 40 mg PO BID #60 tablet. 08/29/17 Allergies Allergy/AdvReac Type Severity Reaction Status Date / Time No Known Allergies Allergy Verified 08/27/17 16:45 Review of Systems ROS Statement: Those systems with pertinent positive or pertinent negative responses have been documented in the HPI. ROS Other: All systems not noted in ROS Statement are negative. Constitutional: Reports: chills ENT: Reports: throat pain Respiratory: Denies: wheezes Cardiovascular: Reports: chest pain Endocrine: Reports: fatigue Gastrointestinal: Reports: abdominal pain, nausea, vomiting Musculoskeletal: Denies: back pain Skin: Denies: rash, lesions Hematological/Lymphatic: Denies: easy bleeding, easy bruising Past Medical History Past Medical History: Asthma, GERD/Reflux Additional Past Medical History / Comment(s): cyclic vomiting syndrome, back pain '"RUPTURE DISC" History of Any Multi-Drug Resistant Organisms: None Reported Past Surgical History: Adenoidectomy, Appendectomy, Cholecystectomy Additional Past Surgical History / Comment(s): EGD Past Anesthesia/Blood Transfusion Reactions: No Reported Reaction Past Psychological History: Anxiety Smoking Status: Former smoker Past Alcohol Use History: None Reported Past Drug Use History: Marijuana - Past Family History Father Family Medical History: No Reported History Mother Family Medical History: Diabetes Mellitus Additional Family Medical History / Comment(s): severe food allergies General Exam Limitations: no limitations General appearance: alert, other (vomiting, sweating) Head exam: Present: atraumatic, normocephalic Eye exam: Present: PERRL. Absent: scleral icterus ENT exam: Present: mucous membranes moist Respiratory exam: Absent: respiratory distress Cardiovascular Exam: Present: regular rate, normal rhythm GI/Abdominal exam: Present: soft. Absent: distended, guarding, rebound, rigid Rectal exam: Present: deferred Extremities exam: Present: normal inspection Neurological exam: Present: alert, oriented X3 Psychiatric exam: Present: agitated Skin exam: Present: warm, diaphoretic Course Vital Signs 09/27/17 09/27/17 20:43 23:35 Temperature 98.8 F Pulse Rate 75 80 Respiratory 18 18 Rate Blood Pressure 145/77 O2 Sat by Pulse 99 Oximetry Medical Decision Making - Medical Decision Making Patient was seen and evaluated, history is obtained from the patient and family at bedside Patient with cyclic vomiting presenting with nausea, vomiting, abdominal and chest pain EKG sinus rhythm with a rate of 65, normal axis, normal intervals, AL 140, QRS 104, QTC 391, there is sinus arrhythmia but no S T elevations or depressions, no acute ischemia or infarction. Labs and imaging were ordered Labs were reviewed - no significant abnormalities The patient was reevaluated after first dose of Zofran and morphine, patient continues to have nonbloody nonbilious vomiting. Reports minor improvement in the epigastric abdominal pain. I discussed with the patient other treatment modalities, patient reports that he has been treated with Haldol in the past but was unsuccessful. Patient again reports that treatment usually includes morphine, Ativan, Zofran or other anti-medic medications. Morphine, Ativan, Reglan and Benadryl ordered, IV fluids continued to infuse Patient was again reevaluated after repeat doses of medications. He does continue to have abdominal pain and vomiting. He has a large patient full of nonbloody nonbilious vomitus at bedside. At this time the patient has received multiple doses of pain and antiemetic medications without success. I will plan to admit the patient. Patient care was discussed with Dr. Gordon of the [facility] physician group who accepts the patient to observation with IV fluids, nothing by mouth status. Orders were placed and the patient was updated on the plan. - Lab Data Result diagrams: 09/27/17 21:07 09/27/17 21:07 Lab Results 09/27/17 09/27/17 09/27/17 Range/Units 21:07 21:07 21:07 WBC 13.5 H (3.8-10.6) k/uL RBC 5.70 (4.30-5.90) m/uL Hgb 16.6 D (13.0-17.5) gm/dL Hct 48.7 (39.0-53.0) % MCV 85.4 (80.0-100.0) fL MCH 29.2 (25.0-35.0) pg MCHC 34.2 (31.0-37.0) g/dL RDW 12.5 (11.5-15.5) % Plt Count 345 (150-450) k/uL Neutrophils % 71 % Lymphocytes % 21 % Monocytes % 4 % Eosinophils % 2 % Basophils % 0 % Neutrophils # 9.6 H (1.3-7.7) k/uL Lymphocytes # 2.8 (1.0-4.8) k/uL Monocytes # 0.6 (0-1.0) k/uL Eosinophils # 0.3 (0-0.7) k/uL Basophils # 0.0 (0-0.2) k/uL PT (9.0-12.0) sec INR (<1.2) APTT (22.0-30.0) sec Sodium 143 (137-145) mmol/L Potassium 3.7 (3.5-5.1) mmol/L Chloride 106 (98-107) mmol/L Carbon Dioxide 24 (22-30) mmol/L Anion Gap 13 mmol/L BUN 18 (9-20) mg/dL Creatinine 0.96 (0.66-1.25) mg/dL Est GFR (CKD-EPI)AfAm >90 (>60 ml/min/1.73 sqM) Est GFR (CKD-EPI)NonAf >90 (>60 ml/min/1.73 sqM) Glucose 106 H (74-99) mg/dL Calcium 10.6 H (8.4-10.2) mg/dL Magnesium 1.7 (1.6-2.3) mg/dL Total Bilirubin 1.4 H (0.2-1.3) mg/dL AST 33 (17-59) U/L ALT 56 (21-72) U/L Alkaline Phosphatase 78 (38-126) U/L Total Creatine Kinase 53 L (55-170) U/L CK-MB (CK-2) 0.3 (0.0-2.4) ng/mL CK-MB (CK-2) Rel Index 0.6 Troponin I <0.012 (0.000-0.034) ng/mL Total Protein 8.1 (6.3-8.2) g/dL Albumin 5.0 (3.5-5.0) g/dL Lipase 65 (23-300) U/L / Range/Units 21:07 WBC (3.8-10.6) k/uL RBC (4.30-5.90) m/uL Hgb (13.0-17.5) gm/dL Hct (39.0-53.0) % MCV (80.0-100.0) fL MCH (25.0-35.0) pg MCHC (31.0-37.0) g/dL RDW (11.5-15.5) % Plt Count (150-450) k/uL Neutrophils % % Lymphocytes % % Monocytes % % Eosinophils % % Basophils % % Neutrophils # (1.3-7.7) k/uL Lymphocytes # (1.0-4.8) k/uL Monocytes # (0-1.0) k/uL Eosinophils # (0-0.7) k/uL Basophils # (0-0.2) k/uL PT 10.2 (9.0-12.0) sec INR 1.0 (<1.2) APTT 22.9 (22.0-30.0) sec Sodium (137-145) mmol/L Potassium (3.5-5.1) mmol/L Chloride (98-107) mmol/L Carbon Dioxide (22-30) mmol/L Anion Gap mmol/L BUN (9-20) mg/dL Creatinine (0.66-1.25) mg/dL Est GFR (CKD-EPI)AfAm (>60 ml/min/1.73 sqM) Est GFR (CKD-EPI)NonAf (>60 ml/min/1.73 sqM) Glucose (74-99) mg/dL Calcium (8.4-10.2) mg/dL Magnesium (1.6-2.3) mg/dL Total Bilirubin (0.2-1.3) mg/dL AST (17-59) U/L ALT (21-72) U/L Alkaline Phosphatase (38-126) U/L Total Creatine Kinase (55-170) U/L CK-MB (CK-2) (0.0-2.4) ng/mL CK-MB (CK-2) Rel Index Troponin I (0.000-0.034) ng/mL Total Protein (6.3-8.2) g/dL Albumin (3.5-5.0) g/dL Lipase (23-300) U/L Disposition Clinical Impression: Intractable nausea and vomiting, Cyclic vomiting syndrome, Cyclical vomiting, intractable Disposition: ADMITTED IP TO THIS [facility] Decision Time: 00:01
[2017-09-27 21:16] LABS: Basophils % (A) 0 %; Eosinophils # (A) 0.3 k/uL (0-0.7); Eosinophils % (A) 2 %; HCT 48.7 % (39.0-53.0); Lymphocytes # (A) 2.8 k/uL (1.0-4.8); Lymphocytes % (A) 21 %; MCH 29.2 pg (25.0-35.0); MCHC 34.2 g/dL (31.0-37.0); MCV 85.4 fL (80.0-100.0); Mean Platelet Volume 7.6; Monocytes # (A) 0.6 k/uL (0-1.0); Monocytes % (A) 4 %; Neutrophils # (A) 9.6 k/uL (1.3-7.7); Neutrophils % (A) 71 %; Platelet Count 345 k/uL (150-450); RDW 12.5 % (11.5-15.5); WBC 13.5 k/uL (3.8-10.6)
[2017-09-27 21:18] LABS: HGB 16.6 gm/dL (13.0-17.5)
[2017-09-27] MEDS ORDERED: ONDANSETRON 4 MG/2 ML VIAL IVP STA (21:21)
[2017-09-27] MEDS ORDERED: MORPHINE SULFATE 4 MG/ML SYRINGE IVP STA ×2 (21:21→23:31)
[2017-09-27 21:26] LABS: Partial Thromboplastin Time 22.9 sec (22.0-30.0); Prothrombin Time 10.2 sec (9.0-12.0)
[2017-09-27] MEDS ORDERED: SODIUM CHLORIDE 0.9% 2,000 ML IV STA (21:30)
[2017-09-27 21:34] LABS: ALT 56 U/L (21-72); AST 33 U/L (17-59); Alkaline Phosphatase 78 U/L (38-126); Anion Gap 13 mmol/L; Blood Urea Nitrogen 18 mg/dL (9-20); Calcium 10.6 mg/dL (8.4-10.2); Carbon Dioxide 24 mmol/L (22-30); Chloride 106 mmol/L (98-107); Glucose 106 mg/dL (74-99); Lipase 65 U/L (23-300); Magnesium 1.7 mg/dL (1.6-2.3); Potassium 3.7 mmol/L (3.5-5.1); Sodium 143 mmol/L (137-145); Total Bilirubin 1.4 mg/dL (0.2-1.3); Total Protein 8.1 g/dL (6.3-8.2)
[2017-09-27 21:38] LABS: Creatine Kinase 53 U/L (55-170)
[2017-09-27 21:50] LABS: Creatine Kinase MB 0.3 ng/mL (0.0-2.4); Troponin I <0.012 ng/mL (0.000-0.034)
--- NOTE | 2017-09-27 22:24 | XR ---
EXAMINATION TYPE: XR chest 2V DATE OF EXAM: 09/27/2017 COMPARISON: 01/01/2016 HISTORY: Chest pain TECHNIQUE: Frontal and lateral views of the chest are obtained. FINDINGS: Heart and mediastinum are normal. Lungs are clear. Diaphragm is normal. Bony thorax appear s normal. IMPRESSION: Normal chest. No change.
[2017-09-27] MEDS ORDERED: METOCLOPRAMIDE 5 MG/ML 2 ML VIAL IVP STA (23:31)
[2017-09-27] MEDS ORDERED: diphenhydrAMINE 50 MG/ML 1 ML VIAL IVP STA (23:31)
[2017-09-27] MEDS ORDERED: LORazepam 2 MG/ML INJ IV STA (23:31)
[2017-09-28] MEDS ORDERED: NALOXONE 0.4 MG/ML 1 ML VIAL IV PRN (00:29)
[2017-09-28] MEDS ORDERED: FAMOTIDINE 20 MG/2 ML VIAL IV STA (00:30)
[2017-09-28] MEDS ORDERED: MAG HYDROX/AL HYDROX/SIMETH 30 ML CUP PO PRN (01:03)
[2017-09-28] MEDS ORDERED: SODIUM CHLORIDE 0.9% 1,000 ML IV ONE (01:04)
[2017-09-28] MEDS: SODIUM CHLORIDE 0.9% 1,000 ML IV SCH ×4 (01:09→23:22)
--- NOTE | 2017-09-28 01:11 | P.HPIM ---
History of Present Illness H&P Date: 09/28/17 Chief Complaint: Intractable nausea and vomiting, epigastric pain 32-year-old male with history of GERD, cyclical vomiting syndrome. Patient presents to the hospital due to intractable nausea and vomiting. He reports some epigastric and chest pain over the past 2-3 days off and on. However today he started throwing up described the vomiting is nonbloody however there was initially stomach food contents and then became greenish yellowish in color. Patient has been throwing up all day nothing is helping with his symptoms. He also started having epigastric abdominal pain radiating to the right subcostal region 10 out of 10 in severity colicky in nature no aggravating or alleviating factor feels like sharp stabbing pain. Denies any fevers chills denies any diarrhea denies any changes in his urinary habits. However he reports that his urine is getting darker. He is unable to eat or drink anything. He throws up every few minutes. Patient admits to smoking marijuana on regular basis about 3 g every day. He denies any trauma, fevers chills, headache, focal neurologic deficits, GI bleeding. Review of Systems Pertinent positives as noted in HPI. All other systems were reviewed and are negative Past Medical History Past Medical History: Asthma, GERD/Reflux Additional Past Medical History / Comment(s): cyclic vomiting syndrome, back pain '"RUPTURE DISC" History of Any Multi-Drug Resistant Organisms: None Reported Past Surgical History: Adenoidectomy, Appendectomy, Cholecystectomy Additional Past Surgical History / Comment(s): EGD Past Anesthesia/Blood Transfusion Reactions: No Reported Reaction Past Psychological History: Anxiety Smoking Status: Former smoker Past Alcohol Use History: None Reported Past Drug Use History: Marijuana - Past Family History Father Family Medical History: No Reported History Mother Family Medical History: Diabetes Mellitus Additional Family Medical History / Comment(s): severe food allergies Medications and Allergies Home Medications Medication Instructions Recorded Confirmed Type Amitriptyline HCl 50 mg PO HS 07/14/17 08/27/17 History Ondansetron [Zofran ODT] 8 mg PO Q8HR PRN 08/10/17 08/27/17 History HYDROcodone/APAP 7.5-325MG [[place] 1 tab PO Q6HR PRN 08/27/17 08/27/17 History 7.5-325] Pantoprazole Sodium [Protonix] 40 mg PO BID #60 tablet. 08/29/17 Rx Allergies Allergy/AdvReac Type Severity Reaction Status Date / Time No Known Allergies Allergy Verified 08/27/17 16:45 Physical Exam Vitals: Vital Signs Temp Pulse Resp BP Pulse Ox 09/27/17 23:35 80 18 145/77 99 09/27/17 20:43 98.8 F 75 18 Intake and Output 09/27/17 09/27/17 09/28/17 14:59 22:59 06:59 Other: Weight 113.398 kg Constitutional: Patient looks sick, feels nauseated, he vomited multiple times during my interview large amounts of yellowish greenish vomiting nonbloody Eyes: Anicteric sclerae, moist conjunctiva, no lid-lag Pupils equal round reactive to light ENMT: NC/AT Oropharynx clear, no erythema, exudates Neck: Supple, FROM, no masses, or JVD No carotid bruits No thyromegaly Lungs: Clear to auscultation Clear to percussion Normal respiratory effort, no accessory muscle use Cardiovascular: Heart regular in rate and rhythm, No murmurs, gallops, or rubs No peripheral edema Abdominal: Soft Tenderness to palpation of the epigastric region , no guarding, rebound or rigidity Abdomen moving with respiration Normoactive bowel sounds No hepatomegaly, No splenomegaly No palpable mass No abdominal wall hernia noted Skin: Normal temperature, tone, texture, turgor No induration No subcutaneous nodules No rash, lesions No ulcers Extremities: No digital cyanosis No clubbing Pedal pulses intact and symmetrical Radial pulses intact and symmetrical No calf tenderness Psychiatric: Alert and oriented to person, place and time Appropriate affect fair judgment Neuro Muscles Strength 5/5 in all 4 extremities Sensation to light touch grossly present throughout Cranial nerves II-XII grossly intact No focal sensory deficits Lymphatics: no palpable cervical or supraclavicular , or inguinal lymph nodes Results CBC & Chem 7: 09/27/17 21:07 09/27/17 21:07 Labs: Abnormal Lab Results - Last 24 Hours (Table) 09/27/17 09/27/17 09/27/17 Range/Units 21:07 21:07 21:07 WBC 13.5 H (3.8-10.6) k/uL Neutrophils # 9.6 H (1.3-7.7) k/uL Glucose 106 H (74-99) mg/dL Calcium 10.6 H (8.4-10.2) mg/dL Total Bilirubin 1.4 H (0.2-1.3) mg/dL Total Creatine Kinase 53 L (55-170) U/L Assessment and Plan Assessment: 32-year-old male with history of cyclical vomiting syndrome and GERD. Admitted under observation with anticipated length of stay of less than 48 hours due to intractable vomiting. Patient reports 2-3 days' history of epigastric and chest pain colicky in nature however today started vomiting and unable to eat or drink anything. Patient has frequent ER visits with same problem and frequent hospitalization due to similar problems in the past. Patient continues to smoke marijuana on 3 g every day Plan: Intractable nausea and vomiting due to cyclical vomiting syndrome. Elevated liver enzymes GI consult Abdominal ultrasound Supportive care and IV fluid hydration Nothing by mouth Morphine for pain Zofran for vomiting Benadryl as needed every 6 hours Patient counseled to quit marijuana PPI twice a day Maalox for GI upset DVT prophylaxis on heparin subcu 3 times a day Preformed a thorough record review from recent hospitalization presented for similar problem with cyclical vomiting syndrome Surrogate decision-maker: Patient's father CODE STATUS: Full code Discussed with: Patient, ER family Anticipated discharge: <[address]: Home A total of 50 minutes was spent on the care of this complex patient more than 50 % of the time was spent in counseling and care coordination.
[2017-09-28 01:56] VITALS: BMI 31.8
[2017-09-28] MEDS: ONDANSETRON 4 MG/2 ML VIAL IVP PRN ×2 (03:34→09:27)
[2017-09-28] MEDS: MORPHINE SULFATE 4 MG/ML SYRINGE IVP PRN ×2 (03:34→07:23)
[2017-09-28] MEDS: HEPARIN SODIUM,PORCINE 5,000 UNIT/ML 1 ML VIAL SQ SCH ×3 (07:23→23:28)
[2017-09-28] MEDS: PANTOPRAZOLE 40 MG TABLET PO SCH ×2 (07:23→19:58)
[2017-09-28 08:22] LABS: Basophils % (A) 0 %; Eosinophils % (A) 0 %; HCT 44.6 % (39.0-53.0); HGB 14.9 gm/dL (13.0-17.5); Lymphocytes # (A) 1.2 k/uL (1.0-4.8); Lymphocytes % (A) 9 %; MCH 29.2 pg (25.0-35.0); MCHC 33.4 g/dL (31.0-37.0); MCV 87.6 fL (80.0-100.0); Monocytes # (A) 0.4 k/uL (0-1.0); Monocytes % (A) 3 %; Neutrophils # (A) 12.4 k/uL (1.3-7.7); Neutrophils % (A) 88 %; Platelet Count 316 k/uL (150-450); RDW 12.7 % (11.5-15.5); WBC 14.1 k/uL (3.8-10.6)
[2017-09-28 08:39] LABS: ALT 51 U/L (21-72); AST 25 U/L (17-59); Albumin 4.8 g/dL (3.5-5.0); Alkaline Phosphatase 66 U/L (38-126); Anion Gap 14 mmol/L; Blood Urea Nitrogen 13 mg/dL (9-20); Calcium 9.7 mg/dL (8.4-10.2); Carbon Dioxide 23 mmol/L (22-30); Chloride 103 mmol/L (98-107); Glucose 108 mg/dL (74-99); Magnesium 1.5 mg/dL (1.6-2.3); Potassium 4.1 mmol/L (3.5-5.1); Sodium 140 mmol/L (137-145); Total Bilirubin 1.2 mg/dL (0.2-1.3); Total Protein 7.5 g/dL (6.3-8.2)
--- NOTE | 2017-09-28 08:43 | US ---
EXAMINATION TYPE: US abdomen limited DATE OF EXAM: 09/28/2017 COMPARISON: US 2018 CLINICAL HISTORY: elevated bilirubin, vomiting. RUQ pain and N/V x 2 days, history of cholecystectomy EXAM MEASUREMENTS: Liver Length: 18.8 cm Gallbladder Wall: surgically absent CBD: 0.6 cm Right Kidney: 11.7 x 5.7 x 5.8 cm Pancreas: visualized portions wnl, limited by overlying midline bowel gas Liver: enlarged, mildly heterogeneous Gallbladder: surgically absent CBD: visualized portions wnl, limited by overlying bowel gas Right Kidney: wnl IMPRESSION: 1. Heterogeneous pattern of liver with hepatomegaly. Correlate for hepatitis, diffuse hepatocellular disease, or fatty infiltration.
--- NOTE | 2017-09-28 10:43 | P.PN ---
Progress Note - Text Progress Note Date: 09/28/17 Patient seen and examined, likely cyclic vomiting syndrome from marijuana abuse. Still having severe nausea, vomiting and abdominal pain. We'll add Reglan to her regimen. Switch morphine to Dilaudid. Strongly advised to quit marijuana abuse.
[2017-09-28] MEDS: HYDROmorphone 1 MG/ML 1 ML SYRINGE IVP PRN ×4 (11:02→22:29)
[2017-09-28] MEDS: METOCLOPRAMIDE 5 MG/ML 2 ML VIAL IVP SCH ×3 (11:02→23:28)
--- NOTE | 2017-09-28 15:56 | P.CONS ---
History of Present Illness - Reason for Consult Consult date: 09/28/17 Nausea and vomiting Requesting physician: Isrrael Gordon - Chief Complaint Nausea and vomiting - History of Present Illness The patient is a 32-year-old male with a known prior history of GERD and some old vomiting syndrome who presents to the hospital due to intractable nausea and vomiting. The patient reports that the episode began yesterday began to have chest pain he describes as a sensation of acid and burning in his chest. He reports that shortly after he began to have nausea and subsequent multiple episodes of yellow nonbloody nonbilious vomitus. The patient reports that he has multiple antiemetic medications at home when episodes like this occur he is unable to take them. He reports he is now having episodes of vomiting almost on a monthly basis. The patient has had no change in bowel movements with his last BM yesterday discharge is normal in color, consistency and without any hematochezia or melena. At this time the patient reports he is on longer having any chest pain or reflux but he is having right lower quadrant abdominal pain described as constant, sharp and throbbing in nature which is usually associated with his episodes of nausea and vomiting. The patient does smoke large amounts of marijuana daily and states he is right up on cannabinoid hyperemesis syndrome, and is interested in stopping usage of the drug to see if his symptoms improved. He denies any improvement nausea or vomiting with hot showers and baths. Past endoscopic history: The patient does report prior EGD over 5 years ago at this facility which she believes was normal. No prior colonoscopy. Review of Systems REVIEW OF SYSTEMS: CARDIOPULMONARY: No chest pain or shortness of breath currently, but he does report a burning reflux-like chest pain yesterday prior to his episode. GENITOURINARY: No dysuria or hematuria. MUSCULOSKELETAL: No weakness reported. SKIN: Denies any new rashes or lesions. PSYCHIATRIC: Denies any depression or anxiety. NEUROLOGY: Denies headache, denies any new focal deficits. EARS: No tinnitus or new hearing loss. NOSE: No discharge. EYES: No pain in eyes or change in vision. CONSTITUTIONAL: No recent weight loss. No fever, chills, night sweats. Past Medical History Past Medical History: Asthma, GERD/Reflux Additional Past Medical History / Comment(s): cyclic vomiting syndrome, back pain '"RUPTURE DISC" History of Any Multi-Drug Resistant Organisms: None Reported Past Surgical History: Adenoidectomy, Appendectomy, Cholecystectomy Additional Past Surgical History / Comment(s): EGD Past Anesthesia/Blood Transfusion Reactions: No Reported Reaction Past Psychological History: Anxiety Additional Psychological History / Comment(s): PT LIVES WITH HIS GIRL FRIEND AND 2 KIDS. Smoking Status: Former smoker Past Alcohol Use History: None Reported Additional Past Alcohol Use History / Comment(s): Pt states he smoked starting 1994, QUIT 2007. Past Drug Use History: Marijuana Additional Drug Use History / Comment(s): daily MEDICAL marijuana use(2-3 TIMES A DAY) - Past Family History Father Family Medical History: No Reported History Mother Family Medical History: Diabetes Mellitus Additional Family Medical History / Comment(s): severe food allergies Medications and Allergies Home Medications Medication Instructions Recorded Confirmed Type Amitriptyline HCl 50 mg PO HS 07/14/17 09/28/17 History Pantoprazole Sodium [Protonix] 40 mg PO BID #60 tablet. 08/29/17 09/28/17 Rx LORazepam [Ativan] 1 mg PO QID PRN 09/28/17 09/28/17 History Propranolol [Inderal] 20 mg PO BID 09/28/17 09/28/17 History Ubidecarenone [Co Q-10] 100 mg PO BID 09/28/17 09/28/17 History Allergies Allergy/AdvReac Type Severity Reaction Status Date / Time No Known Allergies Allergy Verified 08/27/17 16:45 Physical Exam Vitals: Vital Signs Temp Pulse Pulse Resp BP BP Pulse Ox 09/28/17 14:50 98.0 F 75 18 143/78 96 09/28/17 05:35 97.6 F 73 22 149/76 97 09/28/17 02:44 97.8 F 63 24 161/96 99 09/28/17 01:09 98.6 F 62 20 143/83 98 09/27/17 23:35 80 18 145/77 99 09/27/17 20:43 98.8 F 75 18 Intake and Output 09/28/17 09/28/17 09/28/17 06:59 14:59 22:59 Output Total 50 Balance -50 Output: Emesis 50 Other: # Voids 3 3 # Bowel Movements 0 Weight 106.736 kg Results CBC & Chem 7: 09/28/17 07:14 09/28/17 07:14 Labs: Abnormal Lab Results - Last 24 Hours (Table) 09/27/17 09/27/17 09/27/17 Range/Units 21:07 21:07 21:07 WBC 13.5 H (3.8-10.6) k/uL Neutrophils # 9.6 H (1.3-7.7) k/uL Glucose 106 H (74-99) mg/dL Calcium 10.6 H (8.4-10.2) mg/dL Magnesium (1.6-2.3) mg/dL Total Bilirubin 1.4 H (0.2-1.3) mg/dL Total Creatine Kinase 53 L (55-170) U/L 09/28/17 09/28/17 Range/Units 07:14 07:14 WBC 14.1 H (3.8-10.6) k/uL Neutrophils # 12.4 H (1.3-7.7) k/uL Glucose 108 H (74-99) mg/dL Calcium (8.4-10.2) mg/dL Magnesium 1.5 L (1.6-2.3) mg/dL Total Bilirubin (0.2-1.3) mg/dL Total Creatine Kinase (55-170) U/L Assessment and Plan (1) Intractable nausea and vomiting Narrative/Plan: The patient presents to the hospital with multiple episodes of nausea and vomiting likely secondary to his known history of cyclical vomiting syndrome. Unclear if cannabis use plays a role in his symptoms, however the patient has stated he is willing to attempt cessation of the drug use to see if it improves frequency of his episodes. Also on the differential or gastroenteritis, symptoms triggered by uncontrolled GERD or other etiology, no abnormalities to explain symptoms seen on ultrasound with hepatic steatosis described and surgically absent gallbladder. The patient is taking Motrin daily and was instructed to cut back on it use. Current Visit: Yes Status: Acute Code(s): R11.2 - NAUSEA WITH VOMITING, UNSPECIFIED SNOMED Code(s): 106151743 (2) Cyclic vomiting syndrome Narrative/Plan: As above. Current Visit: Yes Status: Acute Code(s): G43.A0 - CYCLICAL VOMITING, NOT INTRACTABLE SNOMED Code(s): 24585936 (3) GERD (gastroesophageal reflux disease) Narrative/Plan: History of gastroesophageal reflux disease currently on PPI therapy at home. Current Visit: Yes Status: Acute Code(s): K21.9 - GASTRO-ESOPHAGEAL REFLUX DISEASE WITHOUT ESOPHAGITIS SNOMED Code(s): 465536166 Plan: Continue supportive care Fluid resuscitation Diet as tolerated, recommend low fat low residual diet Discussed marijuana use with the patient and possible link to his symptoms. Patient has expressed willingness to stop use. Continue antiemetic therapy Continue Protonix 40 mg by mouth twice daily Continue to monitor labs Thank you for allowing us to participate in the care of this patient, we will continue to follow
[2017-09-28] MEDS: LORazepam 1 MG TAB PO PRN (17:43)
[2017-09-29] MEDS: ONDANSETRON 4 MG/2 ML VIAL IVP PRN ×2 (02:00→09:18)
[2017-09-29] MEDS: HYDROmorphone 1 MG/ML 1 ML SYRINGE IVP PRN ×5 (02:01→18:46)
[2017-09-29] MEDS: SODIUM CHLORIDE 0.9% 1,000 ML IV SCH ×3 (03:41→17:55)
[2017-09-29] MEDS: LORazepam 1 MG TAB PO PRN (03:41)
[2017-09-29] MEDS: METOCLOPRAMIDE 5 MG/ML 2 ML VIAL IVP SCH ×3 (05:22→18:45)
[2017-09-29] MEDS: HEPARIN SODIUM,PORCINE 5,000 UNIT/ML 1 ML VIAL SQ SCH ×2 (09:10→16:29)
[2017-09-29] MEDS: PANTOPRAZOLE 40 MG TABLET PO SCH ×2 (09:11→20:49)
--- NOTE | 2017-09-29 09:37 | P.PN ---
<Laya Alves - Last Filed: 09/29/17 09:36> Subjective Progress Note Date: 09/29/17 Principal diagnosis: Nausea vomiting epigastric pain history of cyclic vomiting syndrome Persistent epigastric chest abdominal pain through the night minimal nausea no emesis. Presently nothing by mouth. Afebrile. Objective - Vital Signs Vital signs: Vital Signs Temp 98.4 F 09/29/17 06:41 Pulse 66 09/29/17 06:41 Resp 16 09/29/17 06:41 BP 128/83 09/29/17 06:41 Pulse Ox 97 09/29/17 06:41 Intake & Output 09/28/17 09/29/17 09/29/17 18:59 06:59 18:59 Output Total 300 Balance -300 Output: Urine 300 Other: Voiding Method Toilet # Voids 3 2 # Bowel Movements 0 - Exam General appearance: The patient is alert, oriented, in no acute distress. HET: Head is normocephalic and atraumatic. Pupils are equal and reactive. Oropharynx is clear without lesions. Neck: Supple without lymphadenopathy. Trachea midline. Heart: S1 S2. Regular rate and rhythm. Lungs: No crackles or wheezes are heard. Abdomen: Soft, epigastric tenderness, nondistended with bowel sounds. No peritoneal signs. No palpable organomegaly or masses. Extremities: Normal skin color and turgor. No cyanosis, rash, ulceration, clubbing, or edema. Radial and pedal pulses are 2/4 bilaterally. Neurological: No focal deficits. Strength and sensation are grossly intact. - Labs CBC & Chem 7: 09/28/17 07:14 09/28/17 07:14 Labs: Abnormal Lab Results - Last 24 Hours (Table) 09/28/17 09/28/17 Range/Units 07:14 07:14 WBC 14.1 H (3.8-10.6) k/uL Neutrophils # 12.4 H (1.3-7.7) k/uL Glucose 108 H (74-99) mg/dL Magnesium 1.5 L (1.6-2.3) mg/dL Assessment and Plan (1) Intractable nausea and vomiting Narrative/Plan: Acute on chronic intractable nausea vomiting with a history of cyclic vomiting syndrome and GERD. Current Visit: Yes Status: Acute Code(s): R11.2 - NAUSEA WITH VOMITING, UNSPECIFIED SNOMED Code(s): 685943179 (2) Epigastric abdominal pain Current Visit: Yes Status: Acute Code(s): R10.13 - EPIGASTRIC PAIN SNOMED Code(s): 65738700 (3) Cyclic vomiting syndrome Current Visit: Yes Status: Acute Code(s): G43.A0 - CYCLICAL VOMITING, NOT INTRACTABLE SNOMED Code(s): 45797025 (4) GERD (gastroesophageal reflux disease) Current Visit: Yes Status: Acute Code(s): K21.9 - GASTRO-ESOPHAGEAL REFLUX DISEASE WITHOUT ESOPHAGITIS SNOMED Code(s): 690702006 Plan: 1. Continue supportive care and PPI therapy twice daily. NPO. EGD today. The manuscripts archivist has discussed the risks, benefits and alternative therapies for the above-mentioned procedure and for both sedation/analgesia as well as necessary blood product administration, if indicated, as they pertain to this patient. The patient has indicated understanding and acceptance of the risks and procedures discussed. Assessment and plan a care discussed with Dr. Pimentel <Dave Pimentel - Last Filed: 09/29/17 10:31> Objective - Vital Signs Vital signs: Vital Signs Temp 98.4 F 09/29/17 06:41 Pulse 66 09/29/17 06:41 Resp 16 09/29/17 06:41 BP 128/83 09/29/17 06:41 Pulse Ox 97 09/29/17 06:41 Intake & Output 09/28/17 09/29/17 09/29/17 18:59 06:59 18:59 Output Total 300 Balance -300 Output: Urine 300 Other: Voiding Method Toilet # Voids 3 2 # Bowel Movements 0 - Labs CBC & Chem 7: 09/28/17 07:14 09/28/17 07:14 Assessment and Plan (1) Intractable nausea and vomiting Current Visit: Yes Status: Acute Code(s): R11.2 - NAUSEA WITH VOMITING, UNSPECIFIED SNOMED Code(s): 861594402 (2) Cyclic vomiting syndrome Current Visit: Yes Status: Acute Code(s): G43.A0 - CYCLICAL VOMITING, NOT INTRACTABLE SNOMED Code(s): 23580727 (3) GERD (gastroesophageal reflux disease) Current Visit: Yes Status: Acute Code(s): K21.9 - GASTRO-ESOPHAGEAL REFLUX DISEASE WITHOUT ESOPHAGITIS SNOMED Code(s): 682860287 Plan: The patient has been seen and evaluated, and the plan of care discussed. I agree with the above recommendations and assessment and plan.
[2017-09-29] MEDS ORDERED: SODIUM CHLORIDE 0.9% 800 ML IV ONE (12:56)
--- NOTE | 2017-09-29 13:26 | P.PCN ---
Date of Procedure: 09/29/17 Description of Procedure: BRIEF HISTORY: Patient is a 32-year-old, pleasant, male patient who presents with a history of intractable nausea and vomiting. The patient has had multiple episodes of cyclical vomiting. He reports that these episodes occur on almost monthly basis. He also reports abdominal pain and has a history of daily NSAID use for treatment of back pain. He is currently on once daily PPI therapy for treatment of reflux. PROCEDURE PERFORMED: Esophagogastroduodenoscopy with cold biopsy. PREOPERATIVE DIAGNOSIS: Intractable nausea and vomiting, abdominal pain. IV sedation per anesthesia. PROCEDURE: After informed consent was obtained, the patient was brought into the endoscopy unit. IV sedation was administered by Anesthesia under continuous monitoring. Initially the Olympus GIF-180 video endoscope was inserted into the mouth. Esophagus intubated without any difficulty. It was gradually advanced into the stomach and duodenum and carefully examined. The bulb and the second part of the duodenum appeared normal. The scope at this time was withdrawn to the stomach, adequately insufflated with air, and upon careful examination, mucosa of the antrum, body, cardia and the fundus appeared grossly normal on forward and retroflexed view. Some mild erythema was noted in the antrum and body suggestive of gastritis. The scope was then withdrawn into the esophagus. The GE junction was located at 39 cm from the incisors. The esophagus appeared normal. There were no erosions or ulcerations seen and the patient tolerated the procedure well. IMPRESSION: 1. Gastritis, biopsies taken. 2. No masses lesions or other pathology to explain symptoms of intractable nausea and vomiting. RECOMMENDATIONS: The findings of this examination were discussed with the patient. At this time the patient should continue his daily PPI therapy. We will continue with antiemetic regimen. Extensive discussion with the patient on the need for cessation of cannabis use as it may be contributing to his episodes of cyclical vomiting.
--- NOTE | 2017-09-29 15:12 | P.PN ---
Subjective Progress Note Date: 09/29/17 Principal diagnosis: Nausea and vomiting Patient just came back from EGD, started having severe abdominal pain, nausea and dry heaving. Objective - Vital Signs Vital signs: Vital Signs Temp 98.4 F 09/29/17 06:41 Pulse 66 09/29/17 06:41 Resp 16 09/29/17 06:41 BP 128/83 09/29/17 06:41 Pulse Ox 97 09/29/17 06:41 Intake & Output 09/28/17 09/29/17 09/29/17 18:59 06:59 18:59 Intake Total 200 Output Total 300 Balance -300 200 Intake: IV 200 Output: Urine 300 Other: Voiding Method Toilet # Voids 3 2 # Bowel Movements 0 - Exam Constitutional: No acute distress, conversant, pleasant Eyes:Anicteric sclerae, moist conjunctiva, no lid-lag, PERRLA, ENMT: Oropharynx clear, no erythema, exudates Neck: Supple, FROM, no masses, or JVD, No carotid bruits, No thyromegaly Lungs: Clear to auscultation, Clear to percussion, Normal respiratory effort, no accessory muscle use Cardiovascular: Heart regular in rate and rhythm, No murmurs, gallops, or rubs, No peripheral edema Abdominal: Soft, Nontender, no guarding, rebound or rigidity, Normoactive bowel sounds, No hepatomegaly, No splenomegaly, No palpable mass Skin: Normal temperature, tone, texture, turgor, no induration, No subcutaneous nodules, No rash, lesions, No ulcers Extremities: No digital cyanosis, No clubbing, Pedal pulses intact and symmetrical, Radial pulses intact and symmetrical, No calf tenderness Psychiatric: Alert and oriented to person, place and time, appropriate affect, intact judgement Neuro: Muscles Strength 5/5 in all 4 extremities, Sensation to light touch grossly present throughout, Cranial nerves II-XII grossly intact, no focal sensory deficits - Labs CBC & Chem 7: 09/28/17 07:14 09/28/17 07:14 Assessment and Plan Plan: Intractable nausea and vomiting due to cyclical vomiting syndrome. GI consult, appreciated Abdominal ultrasound reviewed Status post EGD that showed gastritis Continue IV fluid hydration Nothing by mouth Morphine for pain Zofran for vomiting Benadryl as needed every 6 hours Patient counseled to quit marijuana PPI twice a day Maalox for GI upset Elevated liver function tests Check hepatitis profile DVT prophylaxis on heparin subcu 3 times a day
[2017-09-30] MEDS: HEPARIN SODIUM,PORCINE 5,000 UNIT/ML 1 ML VIAL SQ SCH ×3 (00:08→16:34)
[2017-09-30] MEDS: METOCLOPRAMIDE 5 MG/ML 2 ML VIAL IVP SCH ×3 (00:10→14:24)
[2017-09-30] MEDS: HYDROmorphone 1 MG/ML 1 ML SYRINGE IVP PRN ×5 (00:10→16:33)
[2017-09-30] MEDS: LORazepam 1 MG TAB PO PRN (00:10)
[2017-09-30] MEDS: SODIUM CHLORIDE 0.9% 1,000 ML IV SCH ×3 (00:14→14:24)
[2017-09-30] MEDS: PANTOPRAZOLE 40 MG TABLET PO SCH (08:30)
[2017-09-30 09:24] LABS: Basophils % (A) 0 %; Eosinophils # (A) 0.3 k/uL (0-0.7); Eosinophils % (A) 3 %; HGB 14.9 gm/dL (13.0-17.5); Lymphocytes # (A) 2.5 k/uL (1.0-4.8); Lymphocytes % (A) 26 %; MCH 28.6 pg (25.0-35.0); MCV 86.6 fL (80.0-100.0); Mean Platelet Volume 7.6; Monocytes # (A) 0.6 k/uL (0-1.0); Monocytes % (A) 6 %; Neutrophils # (A) 6.2 k/uL (1.3-7.7); Neutrophils % (A) 64 %; Platelet Count 283 k/uL (150-450); RBC 5.19 m/uL (4.30-5.90); RDW 12.7 % (11.5-15.5); WBC 9.7 k/uL (3.8-10.6)
[2017-09-30 09:40] LABS: ALT 45 U/L (21-72); AST 24 U/L (17-59); Albumin 3.9 g/dL (3.5-5.0); Alkaline Phosphatase 59 U/L (38-126); Anion Gap 10 mmol/L; Blood Urea Nitrogen 8 mg/dL (9-20); Calcium 9.5 mg/dL (8.4-10.2); Carbon Dioxide 29 mmol/L (22-30); Chloride 101 mmol/L (98-107); Glucose 96 mg/dL (74-99); Magnesium 1.8 mg/dL (1.6-2.3); Phosphorus 3.7 mg/dL (2.5-4.5); Potassium 3.8 mmol/L (3.5-5.1); Sodium 140 mmol/L (137-145); Total Bilirubin 2.1 mg/dL (0.2-1.3); Total Protein 6.5 g/dL (6.3-8.2)
[2017-09-30 15:07] VITALS: BP 133/81; PULSE 69; RESP 16; TEMP 99.2
[2017-09-30 17:25] LABS: Hepatitis A Antibody IgM Non-Reactive (Non-Reactive); Hepatitis B Core IgM Non-Reactive (Non-Reactive)
--- NOTE | 2017-10-02 07:09 | DS ---
DISCHARGE SUMMARY DATE OF ADMISSION: 09/28/17 DATE OF DISCHARGE: 09/30/17. FINAL DIAGNOSES: 1. Acute flare-up of cyclical vomiting syndrome. 2. Chronic low back pain from herniated disc in lumbar area. 3. Obesity, BMI more than 30. 4. Chronic gastritis. 5. Chronic nicotine dependence. Patient is a cigarette smoker. HOSPITAL COURSE: This patient is well known to me, presented again with bouts of nausea, vomiting, abdominal pain. Did undergo EGD by Dr. Pimentel from , found to have gastritis. On the day of discharge, patient doing better, tolerating a diet. On exam, Abdomen: Soft, nontender. Psych: AO x3. DISCHARGE MEDICATIONS: 1. Amitriptyline 50 mg q.h.s. 2. Protonix 40 mg daily. 3. Ativan 1 mg p.o. q.i.d. p.r.n. 4. Inderal 20 mg p.o. b.i.d. 5. CO Q 10 100 mg p.o. b.i.d. Follow with Dr. Sher Lewis in 3 days, follow Dr. Pimentel in 2 weeks. Smoke cessation counseling was done with the patient. He is still to buy nicotine patches. He is going to try hard to do the same. More than 3 minutes was spent in smoke cessation counseling. FREDERIC / HUMBLEN: [id number] /
== END 2017-09-30 17:47 | disposition home or self-care (01) | DRG 103 ==
LOC: EC 20:26 → 4MS4W 09-28 00:30 → OBSVTOIN 09-30 08:36
PROVIDERS: ADMIT Internal Medicine; ATTEND Internal Medicine
PROC: 0DB78ZX Excision of Stomach, Pylorus, Via Natural or Artificial Opening Endoscopic, Diagnostic (ICD-10-PCS; principal; 2017-09-29 08:05)
DX: G43.A1 Cyclical vomiting, in migraine, intractable (principal); K29.50 Unspecified chronic gastritis without bleeding; E66.9 Obesity, unspecified; Z68.31 Body mass index [BMI] 31.0-31.9, adult; J45.909 Unspecified asthma, uncomplicated; F41.9 Anxiety disorder, unspecified; K21.9 Gastro-esophageal reflux disease without esophagitis; G89.29 Other chronic pain; M51.26 Other intervertebral disc displacement, lumbar region; T40.7X5A Adverse effect of cannabis (derivatives), initial encounter; F17.210 Nicotine dependence, cigarettes, uncomplicated; Z71.6 Tobacco abuse counseling; Z79.899 Other long term (current) drug therapy; Z90.49 Acquired absence of other specified parts of digestive tract; Z83.3 Family history of diabetes mellitus
CPT/HCPCS: 36415; 43239; 71046; 76705; 80053; 80074; 82550; 82553; 83690; 83735; 84100; 84484; 85025; 85610; 85730; 88305; 93005; 96361; 96374; 96375; 96376; 99285

== ENCOUNTER 2017-10-29 10:57 | Emergency (ER) | payer OTHER ==
[2017-10-29] MEDS ORDERED: SODIUM CHLORIDE 0.9% 1,000 ML IV STA (11:12)
[2017-10-29] MEDS ORDERED: HALOPERIDOL LACTATE 5 MG/ML 1 ML VIAL IVP STA (11:13)
[2017-10-29] MEDS ORDERED: diphenhydrAMINE 50 MG/ML 1 ML VIAL IVP STA (11:15)
--- NOTE | 2017-10-29 11:18 | ED ---
General Adult HPI - General Chief complaint: Nausea/Vomiting/Diarrhea Stated complaint: vomiting Source: patient Mode of arrival: ambulatory Limitations: no limitations - History of Present Illness Initial comments: Dictation was produced using earthmine dictation software. please excuse any grammatical, word or spelling errors. Chief Complaint: 32-year-old male past medical history of gastritis and cyclical vomiting syndrome presents with severe emesis. History of Present Illness: Patient is a 32-year-old male daily marijuana user presents with profound nausea and vomiting. Patient states he's had this in the past per chart review shows that patient was admitted to the hospital about a month ago for a similar issue. Patient states that past week he's been feeling nauseated. Just today patient has been having nausea and vomiting. Patient states his symptoms are reminiscent of symptoms month ago where he was evaluated by GI admitted to the hospital. He did report having upper endoscopy performed showing no acute processes. He was told to abstain from marijuana use. Patient states he has continued to smoke marijuana however much less than before and patient states he does have some right upper quadrant abdominal pain which he had last month. Denies any constitutional symptoms. He reports that his emesis is bilious in color. No blood. The ROS documented in this emergency department record has been reviewed and confirmed by me. Those systems with pertinent positive or negative responses have been documented in the HPI. All other systems are other negative and/or noncontributory. - Related Data Home Medications Medication Instructions Recorded Confirmed Amitriptyline HCl 50 mg PO HS 07/14/17 09/28/17 LORazepam [Ativan] 1 mg PO QID PRN 09/28/17 09/28/17 Propranolol [Inderal] 20 mg PO BID 09/28/17 09/28/17 Ubidecarenone [Co Q-10] 100 mg PO BID 09/28/17 09/28/17 Previous Rx's Medication Instructions Recorded Pantoprazole Sodium [Protonix] 40 mg PO BID #60 tablet. 08/29/17 Allergies Allergy/AdvReac Type Severity Reaction Status Date / Time No Known Allergies Allergy Verified 10/29/17 11:05 Review of Systems ROS Statement: Those systems with pertinent positive or pertinent negative responses have been documented in the HPI. ROS Other: All systems not noted in ROS Statement are negative. Past Medical History Past Medical History: Asthma, GERD/Reflux Additional Past Medical History / Comment(s): cyclic vomiting syndrome, back pain '"RUPTURE DISC" History of Any Multi-Drug Resistant Organisms: None Reported Past Surgical History: Adenoidectomy, Appendectomy, Cholecystectomy Additional Past Surgical History / Comment(s): EGD Past Anesthesia/Blood Transfusion Reactions: No Reported Reaction Past Psychological History: Anxiety Smoking Status: Former smoker Past Alcohol Use History: None Reported Past Drug Use History: Marijuana - Past Family History Father Family Medical History: No Reported History Mother Family Medical History: Diabetes Mellitus Additional Family Medical History / Comment(s): severe food allergies General Exam - General Exam Comments Initial Comments: PHYSICAL EXAM: General Impression: Alert and oriented x3, acute distress secondary to vomiting HEENT: Normocephalic atraumatic, extra-ocular movements intact, pupils equal and reactive to light bilaterally, mucous membranes moist. Cardiovascular: Heart regular rate and rhythm, S1&S2 audible, no murmurs, rubs or gallops Chest: Lungs clear to auscultation bilaterally, no rhonchi, no wheeze, no rales Abdomen: Bowel sounds present, abdomen soft, non-tender, non-distended, no organomegaly Musculoskeletal: Pulses present and equal in all extremities, no peripheral edema Motor: Power 5/5 bilaterally, no focal deficits noted Neurological: CN II-XII grossly intact, no focal motor or sensory deficits noted Skin: Intact with no visualized rashes Psych: Normal affect and mood Limitations: no limitations Course Vital Signs 10/29/17 10/29/17 11:02 13:49 Temperature 98.9 F Pulse Rate 107 H 71 Respiratory 20 18 Rate Blood Pressure 167/92 O2 Sat by Pulse 100 99 Oximetry Medical Decision Making - Medical Decision Making ED course: 32 yo male with past medical history of cannabinoid hyperemesis syndrome presents with one-day history of vomiting and 7 days of feeling nauseated. Vital signs upon arrival shows tachycardia 107.Laboratory evaluation obtained. CBC unremarkable. Metabolic panel is unremarkable. Abdominal labs are negative. Patient has history of cholecystectomy. No indication for further gallbladder workup. KUB was obtained showing no acute processes. Patient given antiemetics, IV analgesics and Protonix. He states that his symptoms are much improved. Discussed with patient that his symptoms are likely secondary to chronic marijuana abuse. Patient told to sees smoking marijuana less he wants to continue to experience severe vomiting syndrome. Patient understands and agrees. Advised follow-up with primary care physician upon discharge. Vital signs are improved. EKG interpretation: Ventricular rate 69, AR interval 134, care is 102, QTc 413. No AR prolongation, no QTC prolongation, no ST or T-wave changes noted. Overall, this EKG is unremarkable - Lab Data Result diagrams: 10/29/17 11:16 10/29/17 11:16 Lab Results 10/29/17 10/29/17 Range/Units 11:16 11:16 WBC 10.2 (3.8-10.6) k/uL RBC 5.87 (4.30-5.90) m/uL Hgb 17.2 (13.0-17.5) gm/dL Hct 50.4 (39.0-53.0) % MCV 85.9 (80.0-100.0) fL MCH 29.3 (25.0-35.0) pg MCHC 34.2 (31.0-37.0) g/dL RDW 12.8 (11.5-15.5) % Plt Count 349 (150-450) k/uL Neutrophils % 71 % Lymphocytes % 21 % Monocytes % 4 % Eosinophils % 2 % Basophils % 1 % Neutrophils # 7.3 (1.3-7.7) k/uL Lymphocytes # 2.2 (1.0-4.8) k/uL Monocytes # 0.4 (0-1.0) k/uL Eosinophils # 0.2 (0-0.7) k/uL Basophils # 0.1 (0-0.2) k/uL Sodium 144 (137-145) mmol/L Potassium 4.0 (3.5-5.1) mmol/L Chloride 109 H (98-107) mmol/L Carbon Dioxide 20 L (22-30) mmol/L Anion Gap 15 mmol/L BUN 12 (9-20) mg/dL Creatinine 0.85 (0.66-1.25) mg/dL Est GFR (CKD-EPI)AfAm >90 (>60 ml/min/1.73 sqM) Est GFR (CKD-EPI)NonAf >90 (>60 ml/min/1.73 sqM) Glucose 102 H (74-99) mg/dL Calcium 10.9 H (8.4-10.2) mg/dL Total Bilirubin 1.4 H (0.2-1.3) mg/dL AST 26 (17-59) U/L ALT 44 (21-72) U/L Alkaline Phosphatase 73 (38-126) U/L Total Protein 8.6 H (6.3-8.2) g/dL Albumin 5.3 H (3.5-5.0) g/dL Lipase 97 (23-300) U/L Disposition Clinical Impression: Cannabinoid hyperemesis syndrome Disposition: HOME SELF-CARE Condition: Fair Instructions: Cyclic Vomiting Syndrome (ED) Is patient prescribed a controlled substance at d/c from ED?: No Referrals: Sher Lewis MD [Primary Care Provider] - 1-2 days Time of Disposition: 14:10
[2017-10-29 11:48] LABS: Basophils # (A) 0.1 k/uL (0-0.2); Basophils % (A) 1 %; Eosinophils # (A) 0.2 k/uL (0-0.7); Eosinophils % (A) 2 %; HCT 50.4 % (39.0-53.0); HGB 17.2 gm/dL (13.0-17.5); Lymphocytes # (A) 2.2 k/uL (1.0-4.8); Lymphocytes % (A) 21 %; MCH 29.3 pg (25.0-35.0); MCHC 34.2 g/dL (31.0-37.0); MCV 85.9 fL (80.0-100.0); Mean Platelet Volume 7.4; Monocytes # (A) 0.4 k/uL (0-1.0); Monocytes % (A) 4 %; Neutrophils # (A) 7.3 k/uL (1.3-7.7); Neutrophils % (A) 71 %; Platelet Count 349 k/uL (150-450); RBC 5.87 m/uL (4.30-5.90); RDW 12.8 % (11.5-15.5); WBC 10.2 k/uL (3.8-10.6)
[2017-10-29 12:01] LABS: ALT 44 U/L (21-72); AST 26 U/L (17-59); Albumin 5.3 g/dL (3.5-5.0); Alkaline Phosphatase 73 U/L (38-126); Anion Gap 15 mmol/L; Blood Urea Nitrogen 12 mg/dL (9-20); Calcium 10.9 mg/dL (8.4-10.2); Carbon Dioxide 20 mmol/L (22-30); Chloride 109 mmol/L (98-107); Glucose 102 mg/dL (74-99); Lipase 97 U/L (23-300); Sodium 144 mmol/L (137-145); Total Bilirubin 1.4 mg/dL (0.2-1.3); Total Protein 8.6 g/dL (6.3-8.2)
--- NOTE | 2017-10-29 12:28 | XR ---
EXAMINATION TYPE: XR KUB , 2 VIEWS DATE OF EXAM ORDERED: 10/29/2017 HISTORY: abdominal pain. COMPARISON: A previous study dated 08/10/2017. FINDINGS: Lung bases are clear. Within the abdomen, the gallbladder is been removed. The abdominal gas pattern is normal. There is no evidence of obstruction or free air. No unusual calcifications are identified. IMPRESSION: NO ACUTE INTRA-ABDOMINAL ABNORMALITY.
[2017-10-29] MEDS ORDERED: PANTOPRAZOLE 40 MG/10 ML VIAL IVP STA (13:32)
[2017-10-29] MEDS ORDERED: MORPHINE SULFATE 4 MG/ML SYRINGE IVP PRN (13:32)
[2017-10-29] MEDS ORDERED: ONDANSETRON 4 MG/2 ML VIAL IVP STA (13:32)
[2017-10-29 13:50] VITALS: PULSE 71; RESP 18
[2017-10-29 14:30] VITALS: BP 148/93; TEMP 97.9
== END 2017-10-29 14:30 | disposition home or self-care (01) ==
LOC: EC 10:57
DX: F12.188 Cannabis abuse with other cannabis-induced disorder (principal); R11.10 Vomiting, unspecified; F41.9 Anxiety disorder, unspecified; Z87.891 Personal history of nicotine dependence; Z79.899 Other long term (current) drug therapy; Z90.49 Acquired absence of other specified parts of digestive tract
CPT/HCPCS: 36415; 93005; 80053; 83690; 85025; 74018; 99284; 96374; 96375 ×4; 96361 ×3; J2270; J1200; J1630; J2405; C9113

== ENCOUNTER 2017-10-31 06:20 | Emergency (ER) | payer OTHER ==
[2017-10-31] MEDS ORDERED: SODIUM CHLORIDE 0.9% 1,000 ML IV STA (06:37)
[2017-10-31] MEDS ORDERED: ONDANSETRON 4 MG/2 ML VIAL IVP STA (06:37)
[2017-10-31] MEDS ORDERED: FAMOTIDINE 20 MG/2 ML VIAL IV STA (06:43)
[2017-10-31] MEDS ORDERED: LORazepam 2 MG/ML INJ IV STA ×2 (06:43→09:26)
[2017-10-31] MEDS ORDERED: MORPHINE SULFATE 4 MG/ML SYRINGE IVP STA (06:44)
--- NOTE | 2017-10-31 06:51 | ED ---
General Adult HPI - General Source: patient Mode of arrival: ambulatory Limitations: no limitations <Diamante Cox - Last Filed: 10/31/17 08:38> <Sebastian Anderson - Last Filed: 10/31/17 08:51> - General Chief complaint: Abdominal Pain Stated complaint: Abdominal Pain, vomiting Time Seen by Provider: 10/31/17 06:37 - History of Present Illness Initial comments: Steve is a 32-year-old male with a past medical history significant for cyclic vomiting syndrome who presents to the emergency department this morning for reevaluation of abdominal pain and nausea and vomiting. Patient reports that this episode began on Monday, he's been trying to treated at home with by mouth Ativan. He was evaluated on Monday, received some IV medications and was able to be discharged home. However he reports he had persistent symptoms since that time. He reports he has been unable to sleep and this morning he was in severe pain which prompted him to come to the ER for reevaluation. Reports that this episode is similar in character to previous episodes of cyclic vomiting. (Diamante Cox) - Related Data Home Medications Medication Instructions Recorded Confirmed Amitriptyline HCl 50 mg PO HS 07/14/17 10/31/17 LORazepam [Ativan] 1 mg PO QID PRN 09/28/17 10/31/17 Propranolol [Inderal] 20 mg PO BID 09/28/17 10/31/17 Ubidecarenone [Co Q-10] 100 mg PO BID 09/28/17 10/31/17 Previous Rx's Medication Instructions Recorded Pantoprazole Sodium [Protonix] 40 mg PO BID #60 tablet. 08/29/17 Allergies Allergy/AdvReac Type Severity Reaction Status Date / Time No Known Allergies Allergy Verified 10/31/17 07:24 Review of Systems ROS Other: All systems not noted in ROS Statement are negative. <Diamante Cox - Last Filed: 10/31/17 08:38> ROS Other: All systems not noted in ROS Statement are negative. <Sebastian Anderson - Last Filed: 10/31/17 08:51> ROS Statement: Those systems with pertinent positive or pertinent negative responses have been documented in the HPI. Past Medical History Past Medical History: Asthma, GERD/Reflux Additional Past Medical History / Comment(s): cyclic vomiting syndrome, back pain '"RUPTURE DISC" History of Any Multi-Drug Resistant Organisms: None Reported Past Surgical History: Adenoidectomy, Appendectomy, Cholecystectomy Additional Past Surgical History / Comment(s): EGD Past Anesthesia/Blood Transfusion Reactions: No Reported Reaction Past Psychological History: Anxiety Smoking Status: Former smoker Past Alcohol Use History: None Reported Past Drug Use History: Marijuana - Past Family History Father Family Medical History: No Reported History Mother Family Medical History: Diabetes Mellitus Additional Family Medical History / Comment(s): severe food allergies <Diamante Cox - Last Filed: 10/31/17 08:38> General Exam Limitations: no limitations <Diamante Cox - Last Filed: 10/31/17 08:38> <Sebastian Anderson - Last Filed: 10/31/17 08:51> - General Exam Comments Initial Comments: GENERAL: Curled up in position, heaving, no vomiting noted Appears comfortable HENT: Normocephalic, Atraumatic. EYES: The sclera were anicteric and conjunctiva were pink and moist. Extraocular movements were intact and pupils were equal round and reactive to light. Eyelids were unremarkable. PULMONARY: Unlabored respirations. Good breath sounds bilaterally. No audible rales rhonchi or wheezing was noted. CARDIOVASCULAR: There is a regular rate and rhythm without any murmurs gallops or rubs. ABDOMEN: Soft, tenderness to palpation of the epigastrium Non-peritoneal SKIN: Skin is clear with no lesions or rashes and otherwise unremarkable. NEUROLOGIC: Patient is alert and oriented x3. Cranial nerves II through XII are grossly intact. Motor and sensory are also intact. Normal speech, volume and content. Symmetrical smile. MUSCULOSKELETAL: Normal extremities with adequate strength and full range of motion. No lower extremity swelling or edema. No calf tenderness. LYMPHATICS: No significant lymphadenopathy is noted PSYCHIATRIC: Normal psychiatric evaluation. Limitations: no limitations (Diamante Cox) Course <Diamante Cox - Last Filed: 10/31/17 08:38> <Sebastian Anderson - Last Filed: 10/31/17 08:51> Vital Signs 10/31/17 10/31/17 06:23 07:50 Temperature 98.7 F Pulse Rate 92 75 Respiratory 20 18 Rate Blood Pressure 161/101 160/101 O2 Sat by Pulse 99 98 Oximetry - Reevaluation(s) Reevaluation #1: 10/31/17 07:38 Patient reevaluated by myself, Dr. Anderson. Patient resting comfortably in bed. Abdomen soft with mild epigastric tenderness. Patient specifically requesting Dilaudid. Patient states usually only Dilaudid helps him with his symptoms. 10/31/17 07:47 Patient has refused to go for x-ray. (Sebastian Anderson) Medical Decision Making - Lab Data Result diagrams: 10/31/17 06:40 10/31/17 06:40 <Diamante Cox - Last Filed: 10/31/17 08:38> - Lab Data Result diagrams: 10/31/17 06:40 10/31/17 06:40 <Sebastian Anderson - Last Filed: 10/31/17 08:51> - Medical Decision Making The patient was seen and evaluated, history was obtained from the patient and review of medical record A history of cyclic vomiting, has been taking Ativan at home with no relief Labs and IV fluids were ordered Pepcid, Zofran, Ativan and morphine ordered for management of cyclic vomiting The patient reports he has had no response to Haldol, Reglan in the past. Patient care is signed out to Dr. Anderson at 7:30 (Diamante Cox) - Lab Data Lab Results 10/31/17 10/31/17 10/31/17 Range/Units 06:40 06:40 08:00 WBC 12.2 H (3.8-10.6) k/uL RBC 5.97 H (4.30-5.90) m/uL Hgb 18.0 H (13.0-17.5) gm/dL Hct 51.2 (39.0-53.0) % MCV 85.8 (80.0-100.0) fL MCH 30.1 (25.0-35.0) pg MCHC 35.1 (31.0-37.0) g/dL RDW 12.6 (11.5-15.5) % Plt Count 353 (150-450) k/uL Neutrophils % 77 % Lymphocytes % 16 % Monocytes % 6 % Eosinophils % 1 % Basophils % 0 % Neutrophils # 9.3 H (1.3-7.7) k/uL Lymphocytes # 1.9 (1.0-4.8) k/uL Monocytes # 0.7 (0-1.0) k/uL Eosinophils # 0.1 (0-0.7) k/uL Basophils # 0.0 (0-0.2) k/uL Sodium 142 (137-145) mmol/L Potassium 3.5 (3.5-5.1) mmol/L Chloride 99 (98-107) mmol/L Carbon Dioxide 27 (22-30) mmol/L Anion Gap 16 mmol/L BUN 17 (9-20) mg/dL Creatinine 1.11 (0.66-1.25) mg/dL Est GFR (CKD-EPI)AfAm >90 (>60 ml/min/1.73 sqM) Est GFR (CKD-EPI)NonAf 89 (>60 ml/min/1.73 sqM) Glucose 104 H (74-99) mg/dL Calcium 10.6 H (8.4-10.2) mg/dL Total Bilirubin 2.6 H (0.2-1.3) mg/dL AST 25 (17-59) U/L ALT 43 (21-72) U/L Alkaline Phosphatase 66 (38-126) U/L Total Protein 8.3 H (6.3-8.2) g/dL Albumin 5.0 (3.5-5.0) g/dL Lipase 100 (23-300) U/L Urine Color Yellow Urine Appearance Clear (Clear) Urine pH 6.0 (5.0-8.0) Ur Specific [place] 1.022 (1.001-1.035) Urine Protein Trace H (Negative) Urine Glucose (UA) Negative (Negative) Urine Blood Trace H (Negative) Urine Nitrite Negative (Negative) Urine Bilirubin Negative (Negative) Urine Urobilinogen <2.0 (<2.0) mg/dL Ur Leukocyte Esterase Negative (Negative) Urine RBC 2 (0-5) /hpf Urine WBC <1 (0-5) /hpf Urine Mucus Rare H (None) /hpf Urine Opiates Screen Detected H (NotDetected) Ur Oxycodone Screen Not Detected (NotDetected) Urine Methadone Screen Not Detected (NotDetected) Ur Propoxyphene Screen Not Detected (NotDetected) Ur Barbiturates Screen Not Detected (NotDetected) U Tricyclic Antidepress Detected H (NotDetected) Ur Phencyclidine Scrn Not Detected (NotDetected) Ur Amphetamines Screen Not Detected (NotDetected) U Methamphetamines Scrn Detected H (NotDetected) U Benzodiazepines Scrn Detected H (NotDetected) Urine Cocaine Screen Not Detected (NotDetected) U Marijuana (THC) Screen Detected H (NotDetected) Disposition <Diamante Cox - Last Filed: 10/31/17 08:38> Is patient prescribed a controlled substance at d/c from ED?: No Time of Disposition: 08:51 <Sebastian Anderson - Last Filed: 10/31/17 08:51> Clinical Impression: Cyclic vomiting syndrome, Cannabinoid hyperemesis syndrome, Chronic abdominal pain Disposition: HOME SELF-CARE Condition: Stable Instructions: Abdominal Pain (ED), Cyclic Vomiting Syndrome (ED) Additional Instructions: Discontinue marijuana use. Return for uncontrolled vomiting, fever, increased pain, worsening or changing symptoms or other concerns Referrals: Sher Lewis MD [Primary Care Provider] - 1-2 days
[2017-10-31 07:16] LABS: Basophils % (A) 0 %; Eosinophils # (A) 0.1 k/uL (0-0.7); Eosinophils % (A) 1 %; HCT 51.2 % (39.0-53.0); Lymphocytes # (A) 1.9 k/uL (1.0-4.8); Lymphocytes % (A) 16 %; MCH 30.1 pg (25.0-35.0); MCHC 35.1 g/dL (31.0-37.0); MCV 85.8 fL (80.0-100.0); Mean Platelet Volume 7.7; Monocytes # (A) 0.7 k/uL (0-1.0); Monocytes % (A) 6 %; Neutrophils # (A) 9.3 k/uL (1.3-7.7); Neutrophils % (A) 77 %; Platelet Count 353 k/uL (150-450); RBC 5.97 m/uL (4.30-5.90); RDW 12.6 % (11.5-15.5); WBC 12.2 k/uL (3.8-10.6)
[2017-10-31 07:30] LABS: ALT 43 U/L (21-72); AST 25 U/L (17-59); Alkaline Phosphatase 66 U/L (38-126); Anion Gap 16 mmol/L; Blood Urea Nitrogen 17 mg/dL (9-20); Calcium 10.6 mg/dL (8.4-10.2); Carbon Dioxide 27 mmol/L (22-30); Chloride 99 mmol/L (98-107); Glucose 104 mg/dL (74-99); Lipase 100 U/L (23-300); Potassium 3.5 mmol/L (3.5-5.1); Sodium 142 mmol/L (137-145); Total Bilirubin 2.6 mg/dL (0.2-1.3); Total Protein 8.3 g/dL (6.3-8.2)
[2017-10-31] MEDS ORDERED: diphenhydrAMINE 50 MG/ML 1 ML VIAL IVP STA (07:37)
[2017-10-31] MEDS ORDERED: METOCLOPRAMIDE 5 MG/ML 2 ML VIAL IVP STA (07:37)
[2017-10-31 07:51] VITALS: RESP 18
[2017-10-31 08:24] LABS: Appearance,Urine Clear (Clear); Bilirubin,Urine Negative (Negative); Blood,Urine Trace (Negative); Color,Urine Yellow; Glucose,Urine (UA) Negative (Negative); Ketones,Urine 3+ (Negative); Leukocyte Esterase,Urine Negative (Negative); Mucus,Urine Rare /hpf; Nitrite,Urine Negative (Negative); Protein,Urine Trace (Negative); RBC,Urine 2 /hpf (0-5); Specific Gravity,Urine 1.022 (1.001-1.035); Urobilinogen,Urine <2.0 mg/dL (<2.0); WBC,Urine <1 /hpf (0-5)
[2017-10-31 08:30] LABS: Amphetamine Screen,Urine Not Detected (NotDetected); Barbiturate Screen,Urine Not Detected (NotDetected); Benzodiazepines Screen,Urine Detected (NotDetected); Cocaine Screen,Urine Not Detected (NotDetected); Methadone Screen, Urine Not Detected (NotDetected); Opiate Screen,Urine Detected (NotDetected); Oxycodone Screen, Urine Not Detected (NotDetected); Phencyclidine Screen,Urine Not Detected (NotDetected); Tricyclic Antidepressant,Urine Detected (NotDetected); Urn Cannabinoid Scrn Detected (NotDetected)
[2017-10-31] MEDS ORDERED: HYDROmorphone 1 MG/ML 1 ML SYRINGE IVP STA (09:26)
[2017-10-31 10:52] VITALS: BP 121/79; PULSE 92; TEMP 98.2
== END 2017-10-31 10:51 | disposition home or self-care (01) ==
LOC: EC 06:20
DX: G43.A0 Cyclical vomiting, in migraine, not intractable (principal); F12.988 Cannabis use, unspecified with other cannabis-induced disorder; G89.29 Other chronic pain; R10.9 Unspecified abdominal pain; Z79.899 Other long term (current) drug therapy; Z87.891 Personal history of nicotine dependence
CPT/HCPCS: 36415; 93005; 80053; 83690; 85025; 81001; 80306; 99284; 96374; 96375 ×6; 96376; 96361 ×3; J2060; J2270; J1200; J2765; J2405; J1170

== ENCOUNTER 2017-12-16 20:50 | Emergency (ER) | payer OTHER ==
[2017-12-16] MEDS ORDERED: HYDROmorphone 1 MG/ML 1 ML SYRINGE IVP STA (21:09)
[2017-12-16] MEDS ORDERED: diphenhydrAMINE 50 MG/ML 1 ML VIAL IVP STA (21:09)
[2017-12-16] MEDS ORDERED: SODIUM CHLORIDE 0.9% 2,000 ML IV STA (21:09)
[2017-12-16] MEDS ORDERED: HALOPERIDOL LACTATE 5 MG/ML 1 ML VIAL IVP STA (21:11)
[2017-12-16 21:49] LABS: Basophils % (A) 0 %; Eosinophils # (A) 0.1 k/uL (0-0.7); Eosinophils % (A) 1 %; HCT 49.9 % (39.0-53.0); HGB 16.9 gm/dL (13.0-17.5); Lymphocytes # (A) 0.8 k/uL (1.0-4.8); Lymphocytes % (A) 6 %; MCH 29.6 pg (25.0-35.0); MCHC 33.9 g/dL (31.0-37.0); MCV 87.2 fL (80.0-100.0); Mean Platelet Volume 7.3; Monocytes # (A) 0.2 k/uL (0-1.0); Monocytes % (A) 2 %; Neutrophils # (A) 12.5 k/uL (1.3-7.7); Neutrophils % (A) 91 %; Platelet Count 424 k/uL (150-450); RBC 5.72 m/uL (4.30-5.90); RDW 12.9 % (11.5-15.5); WBC 13.7 k/uL (3.8-10.6)
[2017-12-16 22:02] LABS: ALT 48 U/L (21-72); AST 27 U/L (17-59); Albumin 5.4 g/dL (3.5-5.0); Alkaline Phosphatase 68 U/L (38-126); Anion Gap 18 mmol/L; Blood Urea Nitrogen 13 mg/dL (9-20); Calcium 11.1 mg/dL (8.4-10.2); Carbon Dioxide 20 mmol/L (22-30); Chloride 102 mmol/L (98-107); Glucose 121 mg/dL (74-99); Lipase 55 U/L (23-300); Magnesium 1.8 mg/dL (1.6-2.3); Potassium 4.6 mmol/L (3.5-5.1); Sodium 140 mmol/L (137-145); Total Bilirubin 1.5 mg/dL (0.2-1.3); Total Protein 8.9 g/dL (6.3-8.2)
--- NOTE | 2017-12-16 22:15 | ED ---
Abdominal Pain HPI - General Chief Complaint: Abdominal Pain Stated Complaint: Vomiting Time Seen by Provider: 12/16/17 20:55 Source: patient Mode of arrival: ambulatory Limitations: no limitations - History of Present Illness Initial Comments: Patient is a 32-year-old male presented for abdominal pain. Patient states that he's got a history of cyclic vomiting syndrome and that this pain feels exactly the same as it has in the past. The pain started at 10 AM and feels like a pressure in the middle of his abdomen without radiation or modifying factors. He is also had 20 episodes of nausea and vomiting since the discomfort started. He denies any fevers or chills as well as urinary complaints. - Related Data Home Medications Medication Instructions Recorded Confirmed Amitriptyline HCl 50 mg PO HS 07/14/17 10/31/17 LORazepam [Ativan] 1 mg PO QID PRN 09/28/17 10/31/17 Propranolol [Inderal] 20 mg PO BID 09/28/17 10/31/17 Ubidecarenone [Co Q-10] 100 mg PO BID 09/28/17 10/31/17 Previous Rx's Medication Instructions Recorded Pantoprazole Sodium [Protonix] 40 mg PO BID #60 tablet. 08/29/17 Amitriptyline HCl 50 mg PO HS #7 tab 12/16/17 Allergies Allergy/AdvReac Type Severity Reaction Status Date / Time No Known Allergies Allergy Verified 12/16/17 20:54 Review of Systems ROS Statement: Those systems with pertinent positive or pertinent negative responses have been documented in the HPI. Constitutional: Negative for chills, fatigue and fever. HENT: Negative for congestion. Respiratory: Negative for chest tightness, shortness of breath and wheezing. Negative for cough Cardiovascular: Negative for chest pain and palpitations. Gastrointestinal: Positive for abdominal pain. Negative for abdominal distention , diarrhea, positive for nausea and vomiting. Genitourinary: Negative for dysuria. Musculoskeletal: Negative for back pain, neck pain and neck stiffness. Skin: Negative for color change. Neurological: Negative for dizziness, speech difficulty, weakness and light- headedness. Psychiatric/Behavioral: Negative for agitation and confusion. Negative for anxiety ROS Other: All systems not noted in ROS Statement are negative. Past Medical History Past Medical History: Asthma, GERD/Reflux Additional Past Medical History / Comment(s): cyclic vomiting syndrome, back pain '"RUPTURE DISC" History of Any Multi-Drug Resistant Organisms: None Reported Past Surgical History: Adenoidectomy, Appendectomy, Cholecystectomy Additional Past Surgical History / Comment(s): EGD Past Anesthesia/Blood Transfusion Reactions: No Reported Reaction Past Psychological History: Anxiety Smoking Status: Former smoker Past Alcohol Use History: None Reported Past Drug Use History: Marijuana - Past Family History Father Family Medical History: No Reported History Mother Family Medical History: Diabetes Mellitus Additional Family Medical History / Comment(s): severe food allergies General Exam - General Exam Comments Initial Comments: Constitutional: Pt is oriented to person, place, and time. Pt appears well- developed and well-nourished. No distress. HENT: Head: Normocephalic and atraumatic. Eyes: EOM are normal. Neck: Normal range of motion. Neck supple. Cardiovascular: Normal rate, regular rhythm, S1 normal, S2 normal and normal heart sounds. Exam reveals no gallop and no friction rub. No murmur heard. Pulmonary/Chest: Effort normal and breath sounds normal. No tachypnea and no bradypnea. No respiratory distress. No wheezes or rales noted. Abdominal: Soft. Bowel sounds are normal. Pt exhibits no shifting dullness, no distension, no pulsatile liver, no fluid wave, no abdominal bruit and no ascites. There is no tenderness. There is no rigidity, no rebound, no guarding, no tenderness at McBurney's point and negative Claros's sign. Musculoskeletal: Normal range of motion. Neurological: Pt is alert and oriented to person, place, and time. No cranial nerve deficit. Skin: Skin is warm and dry. No rash noted. Pt is not diaphoretic. No erythema. No pallor. Psychiatric: Pt has a normal mood and affect. Pt behavior is normal. Thought content normal. Limitations: no limitations Course Vital Signs 12/16/17 12/16/17 20:51 23:00 Temperature 97.8 F 98 F Pulse Rate 89 88 Respiratory 20 18 Rate Blood Pressure 140/89 139/77 O2 Sat by Pulse 97 98 Oximetry Medical Decision Making - Medical Decision Making Laboratory studies showed that there is mild leukocytosis at 13.7 but no evidence of transaminitis, pancreatitis and bilirubin was elevated but actually better than her baseline values. Patient was given Benadryl, Haldol and Dilaudid and stated that the symptoms significantly improved. He also declined acute abdominal series because he did not want the radiation. On repeat physical exams, the patient displayed no tenderness palpation. Patient also requested a refill for his amitriptyline which she states has been given to him for cyclic vomiting syndrome. He states that he has been out of his medication and that this is possibly causing the flareup area he was given a seven-day course of amitriptyline and advised to follow up with PCP in next 1-2 days. Patient was agreeable plan. - Lab Data Result diagrams: 12/16/17 21:30 12/16/17 21:30 Lab Results 12/16/17 12/16/17 Range/Units 21:30 21:30 WBC 13.7 H (3.8-10.6) k/uL RBC 5.72 (4.30-5.90) m/uL Hgb 16.9 (13.0-17.5) gm/dL Hct 49.9 (39.0-53.0) % MCV 87.2 (80.0-100.0) fL MCH 29.6 (25.0-35.0) pg MCHC 33.9 (31.0-37.0) g/dL RDW 12.9 (11.5-15.5) % Plt Count 424 (150-450) k/uL Neutrophils % 91 % Lymphocytes % 6 % Monocytes % 2 % Eosinophils % 1 % Basophils % 0 % Neutrophils # 12.5 H (1.3-7.7) k/uL Lymphocytes # 0.8 L (1.0-4.8) k/uL Monocytes # 0.2 (0-1.0) k/uL Eosinophils # 0.1 (0-0.7) k/uL Basophils # 0.0 (0-0.2) k/uL Sodium 140 (137-145) mmol/L Potassium 4.6 (3.5-5.1) mmol/L Chloride 102 (98-107) mmol/L Carbon Dioxide 20 L (22-30) mmol/L Anion Gap 18 mmol/L BUN 13 (9-20) mg/dL Creatinine 1.01 (0.66-1.25) mg/dL Est GFR (CKD-EPI)AfAm >90 (>60 ml/min/1.73 sqM) Est GFR (CKD-EPI)NonAf >90 (>60 ml/min/1.73 sqM) Glucose 121 H (74-99) mg/dL Calcium 11.1 H (8.4-10.2) mg/dL Magnesium 1.8 (1.6-2.3) mg/dL Total Bilirubin 1.5 H (0.2-1.3) mg/dL AST 27 (17-59) U/L ALT 48 (21-72) U/L Alkaline Phosphatase 68 (38-126) U/L Total Protein 8.9 H (6.3-8.2) g/dL Albumin 5.4 H (3.5-5.0) g/dL Lipase 55 (23-300) U/L Disposition Clinical Impression: Abdominal pain, Nausea and vomiting Disposition: HOME SELF-CARE Condition: Good Instructions: Abdominal Pain (ED) Prescriptions: Amitriptyline HCl 50 mg PO HS #7 tab Is patient prescribed a controlled substance at d/c from ED?: No Referrals: Sher Lewis MD [Primary Care Provider] - 1-2 days Time of Disposition: 22:48
[2017-12-16 23:01] VITALS: BP 139/77; PULSE 88; RESP 18; TEMP 98
== END 2017-12-16 23:01 | disposition home or self-care (01) ==
LOC: EC 20:50
DX: R10.9 Unspecified abdominal pain (principal); R11.2 Nausea with vomiting, unspecified; D72.829 Elevated white blood cell count, unspecified; F41.9 Anxiety disorder, unspecified; Z87.19 Personal history of other diseases of the digestive system; Z87.891 Personal history of nicotine dependence; Z90.49 Acquired absence of other specified parts of digestive tract; Z79.899 Other long term (current) drug therapy; Z53.29 Procedure and treatment not carried out because of patient's decision for other reasons
CPT/HCPCS: 36415; 80053; 83690; 83735; 85025; 99284; 96374; 96375 ×2; 96361; J1200; J1630; J1170

== ENCOUNTER 2018-01-26 17:02 | Observation (INO) | payer OTHER ==
[2018-01-26] MEDS ORDERED: SODIUM CHLORIDE 0.9% 2,000 ML IV STA (17:25)
[2018-01-26] MEDS ORDERED: MORPHINE SULFATE 4 MG/ML SYRINGE IV STA (17:25)
[2018-01-26] MEDS ORDERED: ONDANSETRON 4 MG/2 ML VIAL IVP STA (17:25)
[2018-01-26] MEDS ORDERED: FAMOTIDINE 20 MG/2 ML VIAL IV STA (17:26)
--- NOTE | 2018-01-26 17:31 | ED ---
General Adult HPI - General Source: patient, RN notes reviewed Mode of arrival: ambulatory Limitations: no limitations <Quentin Francisco - Last Filed: 01/27/18 05:12> <Crispin Bradley - Last Filed: 01/29/18 10:28> - General Chief complaint: Nausea/Vomiting/Diarrhea Stated complaint: Vomiting Time Seen by Provider: 01/26/18 17:08 - History of Present Illness Initial comments: 32-year-old male with a past medical history of cyclic vomiting syndrome, GERD, asthma presents to the emergency department for a chief complaint of nausea and vomiting 6 hours and abdominal pain 2 hours. Patient states the pain is in the right upper quadrant. He describes the pain as a sharp pain. Patient states the symptoms of vomiting and pain are consistent with previous episodes of cyclic vomiting syndrome. Patient admits to marijuana use. He denies any fevers or chills. Patient does have a past surgical history of cholecystectomy and appendectomy. Patient has no other complaints at this time including shortness of breath, chest pain, headache, or visual changes. (Quentin Francisco) - Related Data Home Medications Medication Instructions Recorded Confirmed LORazepam [Ativan] 1 mg PO QID PRN 09/28/17 01/26/18 Propranolol [Inderal] 20 mg PO BID 09/28/17 01/26/18 Escitalopram [Lexapro] 10 mg PO DAILY 01/26/18 01/26/18 Hydrocodone/Acetaminophen [[place] 1 tab PO Q6HR PRN 01/26/18 01/26/18 7.5-325] Previous Rx's Medication Instructions Recorded Amitriptyline HCl 50 mg PO HS #7 tab 12/16/17 Allergies Allergy/AdvReac Type Severity Reaction Status Date / Time No Known Allergies Allergy Verified 01/26/18 18:03 Review of Systems ROS Other: All systems not noted in ROS Statement are negative. <Quentin Francisco - Last Filed: 01/27/18 05:12> ROS Other: All systems not noted in ROS Statement are negative. <Crispin Bradley - Last Filed: 01/29/18 10:28> ROS Statement: Those systems with pertinent positive or pertinent negative responses have been documented in the HPI. Past Medical History Past Medical History: Asthma, GERD/Reflux Additional Past Medical History / Comment(s): cyclic vomiting syndrome, back pain '"RUPTURE DISC" History of Any Multi-Drug Resistant Organisms: None Reported Past Surgical History: Adenoidectomy, Appendectomy, Cholecystectomy Additional Past Surgical History / Comment(s): EGD Past Anesthesia/Blood Transfusion Reactions: No Reported Reaction Past Psychological History: Anxiety Smoking Status: Former smoker Past Alcohol Use History: None Reported Past Drug Use History: Marijuana - Past Family History Father Family Medical History: No Reported History Mother Family Medical History: Diabetes Mellitus Additional Family Medical History / Comment(s): severe food allergies <Quentin Francisco P - Last Filed: 01/27/18 05:12> General Exam Limitations: no limitations General appearance: alert (patient currently vomiting on exam) Head exam: Present: atraumatic, normocephalic, normal inspection Eye exam: Present: normal appearance, PERRL, EOMI. Absent: scleral icterus, conjunctival injection, periorbital swelling ENT exam: Present: normal exam, mucous membranes moist Neck exam: Present: normal inspection, full ROM. Absent: tenderness, meningismus, lymphadenopathy Respiratory exam: Present: normal lung sounds bilaterally. Absent: respiratory distress, wheezes, rales, rhonchi, stridor Cardiovascular Exam: Present: regular rate, normal rhythm, normal heart sounds. Absent: systolic murmur, diastolic murmur, rubs, gallop, clicks GI/Abdominal exam: Present: soft, tenderness (tenderness noted to RUQ as well as LUQ), normal bowel sounds. Absent: distended, guarding (no guarding present , abdomen soft.), rebound, rigid Neurological exam: Present: alert, oriented X3, CN II-XII intact Psychiatric exam: Present: normal affect, normal mood Skin exam: Present: warm, dry, intact, normal color. Absent: rash <Quentin Francisco P - Last Filed: 01/27/18 05:12> Vital Signs 01/26/18 01/26/18 01/26/18 17:03 18:45 19:20 Temperature 96 F L Pulse Rate 91 69 94 Respiratory 20 18 16 Rate Blood Pressure 160/109 134/88 133/88 O2 Sat by Pulse 100 100 97 Oximetry 01/26/18 20:10 Temperature Pulse Rate 95 Respiratory 18 Rate Blood Pressure 122/93 O2 Sat by Pulse 97 Oximetry Medical Decision Making - Lab Data Result diagrams: 01/26/18 17:45 01/26/18 17:45 <Quentin Francisco - Last Filed: 01/27/18 05:12> - Lab Data Result diagrams: 01/26/18 17:45 01/26/18 17:45 <Crispin Bradley - Last Filed: 01/29/18 10:28> - Medical Decision Making 32-year-old male with a past medical history of cyclic vomiting syndrome. Patient has been vomiting consistently in the emergency department. Vitals are within normal limits. Exam demonstrates upper abdominal tenderness, history of cholecystectomy. CBC and CMP unremarkable. Patient does have a mild white count likely reactive. Urine shows 4+ ketones, patient was given fluids. Patient refuses x-ray stating we due to many x-rays on him. Patient was given multiple antiemetics, anxiolytics, and pain medicines. Patient does not show significant improvement here in the emergency department despite multiple therapies. At this time it is felt patient would benefit from admission for symptom control and IV hydration. (Quentin Francisco) I saw this patient in conjunction with the physician stylist assistant. I performed independent history and physical exam. Agree with case management. (Crispin Bradley) - Lab Data Lab Results 01/26/18 01/26/18 01/26/18 Range/Units 17:45 17:45 20:48 WBC 12.2 H (3.8-10.6) k/uL RBC 5.52 (4.30-5.90) m/uL Hgb 15.6 (13.0-17.5) gm/dL Hct 48.1 (39.0-53.0) % MCV 87.2 (80.0-100.0) fL MCH 28.4 (25.0-35.0) pg MCHC 32.5 (31.0-37.0) g/dL RDW 13.1 (11.5-15.5) % Plt Count 352 (150-450) k/uL Neutrophils % 80 % Lymphocytes % 14 % Monocytes % 3 % Eosinophils % 1 % Basophils % 0 % Neutrophils # 9.8 H (1.3-7.7) k/uL Lymphocytes # 1.7 (1.0-4.8) k/uL Monocytes # 0.4 (0-1.0) k/uL Eosinophils # 0.1 (0-0.7) k/uL Basophils # 0.0 (0-0.2) k/uL Sodium 143 (137-145) mmol/L Potassium 4.5 (3.5-5.1) mmol/L Chloride 104 (98-107) mmol/L Carbon Dioxide 25 (22-30) mmol/L Anion Gap 14 mmol/L BUN 13 (9-20) mg/dL Creatinine 0.93 (0.66-1.25) mg/dL Est GFR (CKD-EPI)AfAm >90 (>60 ml/min/1.73 sqM) Est GFR (CKD-EPI)NonAf >90 (>60 ml/min/1.73 sqM) Glucose 105 H (74-99) mg/dL Calcium 10.6 H (8.4-10.2) mg/dL Total Bilirubin 1.3 (0.2-1.3) mg/dL AST 24 (17-59) U/L ALT 42 (21-72) U/L Alkaline Phosphatase 75 (38-126) U/L Total Protein 8.0 (6.3-8.2) g/dL Albumin 4.9 (3.5-5.0) g/dL Amylase 50 (30-110) U/L Lipase 57 (23-300) U/L Urine Color Yellow Urine Appearance Clear (Clear) Urine pH 8.0 (5.0-8.0) Ur Specific [place] 1.019 (1.001-1.035) Urine Protein Negative (Negative) Urine Glucose (UA) Negative (Negative) Urine Ketones 4+ H (Negative) Urine Blood Negative (Negative) Urine Nitrite Negative (Negative) Urine Bilirubin Negative (Negative) Urine Urobilinogen <2.0 (<2.0) mg/dL Ur Leukocyte Esterase Negative (Negative) Disposition Time of Disposition: 22:29 <Quentin Francisco - Last Filed: 01/27/18 05:12> <Crispin Bradley - Last Filed: 01/29/18 10:28> Clinical Impression: Intractable nausea and vomiting, Abdominal pain Disposition: ADMITTED IP TO THIS HOSP Condition: Fair
[2018-01-26 18:04] LABS: Basophils % (A) 0 %; Eosinophils # (A) 0.1 k/uL (0-0.7); Eosinophils % (A) 1 %; HCT 48.1 % (39.0-53.0); HGB 15.6 gm/dL (13.0-17.5); Lymphocytes # (A) 1.7 k/uL (1.0-4.8); Lymphocytes % (A) 14 %; MCH 28.4 pg (25.0-35.0); MCHC 32.5 g/dL (31.0-37.0); MCV 87.2 fL (80.0-100.0); Mean Platelet Volume 7.5; Monocytes # (A) 0.4 k/uL (0-1.0); Monocytes % (A) 3 %; Neutrophils # (A) 9.8 k/uL (1.3-7.7); Neutrophils % (A) 80 %; Platelet Count 352 k/uL (150-450); RBC 5.52 m/uL (4.30-5.90); RDW 13.1 % (11.5-15.5); WBC 12.2 k/uL (3.8-10.6)
[2018-01-26 18:09] LABS: ALT 42 U/L (21-72); AST 24 U/L (17-59); Albumin 4.9 g/dL (3.5-5.0); Alkaline Phosphatase 75 U/L (38-126); Amylase 50 U/L (30-110); Anion Gap 14 mmol/L; Blood Urea Nitrogen 13 mg/dL (9-20); Calcium 10.6 mg/dL (8.4-10.2); Carbon Dioxide 25 mmol/L (22-30); Chloride 104 mmol/L (98-107); Glucose 105 mg/dL (74-99); Lipase 57 U/L (23-300); Potassium 4.5 mmol/L (3.5-5.1); Sodium 143 mmol/L (137-145); Total Bilirubin 1.3 mg/dL (0.2-1.3)
[2018-01-26] MEDS ORDERED: HYDROmorphone 1 MG/ML 1 ML SYRINGE IVP STA (19:16)
[2018-01-26] MEDS ORDERED: diphenhydrAMINE 50 MG/ML 1 ML VIAL IVP STA (19:16)
[2018-01-26] MEDS ORDERED: LORazepam 2 MG/ML INJ IV STA (19:16)
[2018-01-26] MEDS ORDERED: METOCLOPRAMIDE 5 MG/ML 2 ML VIAL IVP STA (20:15)
[2018-01-26] MEDS ORDERED: KETOROLAC 30 MG/ML 1 ML VIAL IVP STA (20:15)
[2018-01-26] MEDS ORDERED: HALOPERIDOL LACTATE 5 MG/ML 1 ML VIAL IVP STA (21:10)
[2018-01-26 21:11] LABS: Appearance,Urine Clear (Clear); Bilirubin,Urine Negative (Negative); Blood,Urine Negative (Negative); Color,Urine Yellow; Glucose,Urine (UA) Negative (Negative); Ketones,Urine 4+ (Negative); Leukocyte Esterase,Urine Negative (Negative); Nitrite,Urine Negative (Negative); Protein,Urine Negative (Negative); Specific Gravity,Urine 1.019 (1.001-1.035); Urobilinogen,Urine <2.0 mg/dL (<2.0)
[2018-01-26] MEDS ORDERED: NALOXONE 0.4 MG/ML 1 ML VIAL IV PRN (22:24)
[2018-01-26] MEDS ORDERED: METHADONE 5 MG TAB PO PRN (22:27)
[2018-01-27] MEDS: SODIUM CHLORIDE 0.9% 1,000 ML IV SCH ×3 (00:09→16:22)
[2018-01-27] MEDS: ONDANSETRON 4 MG/2 ML VIAL IVP PRN ×2 (00:09→08:18)
[2018-01-27 00:39] VITALS: BMI 33.9
[2018-01-27] MEDS ORDERED: LORazepam 1 MG TAB PO PRN (00:51)
[2018-01-27] MEDS: HYDROmorphone 1 MG/ML 1 ML SYRINGE IVP PRN ×4 (00:59→15:38)
[2018-01-27] MEDS: KETOROLAC 30 MG/ML 1 ML VIAL IVP PRN ×3 (01:00→13:15)
[2018-01-27] MEDS ORDERED: AMITRIPTYLINE HCL 50 MG TAB PO SCH (01:00)
[2018-01-27] MEDS: PROPRANOLOL 20 MG TAB PO SCH ×2 (08:19→08:20)
[2018-01-27] MEDS: ESCITALOPRAM 10 MG TAB PO SCH ×2 (08:19)
[2018-01-27 14:54] VITALS: BP 90/59; PULSE 82; RESP 16; TEMP 97
[2018-01-27] MEDS ORDERED: ENOXAPARIN 40 MG/0.4 ML SYRINGE SQ SCH (17:30)
--- NOTE | 2018-01-27 20:11 | DS ---
DISCHARGE SUMMARY HISTORY/PHYSICAL AND DISCHARGE SUMMARY: DATE OF ADMISSION: 01/26/2018. DATE OF DISCHARGE: 01/27/2018. DATE OF SERVICE: 01/27/2018. PRESENTING COMPLAINT: Nausea, vomiting, abdominal pain. HISTORY OF PRESENTING COMPLAINT: This is a pleasant 32-year-old patient of Dr. Sher Lewis. Chronic stable medical conditions include lower back pain. The patient has a known diagnosis of cyclical vomiting syndrome. Started off yesterday with again nausea, vomiting, multiple episodes, and increasing abdominal pain more so on the right side. There was no fever, no chills. Last bowel movement was yesterday. The patient has had multiple episodes of these in the past. The patient was put on IV Zofran, IV pain medications, IV fluids overnight. The patient is not able to keep anything down. When I saw the patient earlier today, the patient is doing better. Did tolerate his clear liquid diet. Was feeling much better, wanted to go home. REVIEW OF SYSTEMS: CONSTITUTIONAL: Tired. HEENT: None. RESPIRATORY none. CARDIOVASCULAR: None. GASTROINTESTINAL as above. GENITOURINARY: None. MUSCULOSKELETAL: Chronic low back pain. DERMATOLOGICAL, HEMATOLOGIC, LYMPHATIC: none. PSYCHIATRY none. NEUROLOGICAL: None. PAST MEDICAL HISTORY: Cyclic vomiting syndrome, GERD, chronic low back pain, obesity. PAST SURGICAL HISTORY: Appendectomy and cholecystectomy. SOCIAL HISTORY: Lives with girlfriend and 2 children. Works at a [employer] called [employer]. FAMILY HISTORY: Reviewed, noncontributory to presentation. HOME MEDICATIONS: 1. Inderal 20 mg p.o. b.i.d. 2. Ativan 1 mg p.o. q.i.d. p.r.n. 3. [place] 7.5 one tab q.6h p.r.n. 4. Lexapro 10 mg p.o. daily. 5. Amitriptyline 50 mg p.o. q.h.s. ALLERGIES: None. PHYSICAL EXAMINATION: VITAL SIGNS: Temperature 97.6, pulse 83, respiratory 18, blood pressure 122/72, pulse ox 100 percent on room air. GENERAL APPEARANCE: Well built, BMI 33.9. Sitting up, not in distress. EYES: Pupils equal. Conjunctivae normal. HEENT: External appearance of nose and ears. Oral cavity normal. NECK: JVD not raised. Mass not palpable. RESPIRATORY: Effort normal. LUNGS are clear. CARDIOVASCULAR: 1st and 2nd sounds normal. ABDOMEN: Soft, nontender. Liver and spleen not palpable. LYMPHATICS : No lymph nodes palpable in the neck and axilla. PSYCHIATRY: Alert and oriented x3. Mood and affect normal. NEUROLOGICAL: Pupils equal. Cranial nerves grossly intact. Power and sensation grossly intact. INVESTIGATIONS: White count count 12.2, hemoglobin 15.6. Potassium 4.5. BUN and creatinine is normal. Urine ketone 4+. ASSESSMENT: 1. Acute flare up of cyclical vomiting syndrome. 2. Chronic low-back from herniated disc. 3. Hyperbilirubinemia. 4. Hypocalcemia probably from dehydration. 5. Obesity, BMI 33. PLAN: Patient is treated with IV pain medications, Zofran, IV fluids. The patient did well, now doing much better. He tolerated a clear liquid diet. Keen to get a full liquid diet. Keen to go home. Overall doing much better. DISPOSITION: Home. Follow up with Dr. Sher Lewis. Home medications to continue. This is both a history physical and discharge summary. Copy to Dr. Lewis. MMODL / IJN: [id number] /
== END 2018-01-27 18:28 | disposition home or self-care (01) ==
LOC: EC 17:02 → 4MS4W 22:29
PROVIDERS: ADMIT Hospitalist; ATTEND Hospitalist
DX: G43.A1 Cyclical vomiting, in migraine, intractable (principal); G89.29 Other chronic pain; K21.9 Gastro-esophageal reflux disease without esophagitis; E66.9 Obesity, unspecified; Z90.49 Acquired absence of other specified parts of digestive tract; M51.26 Other intervertebral disc displacement, lumbar region; R17 Unspecified jaundice; E86.0 Dehydration; E83.51 Hypocalcemia; Z68.33 Body mass index [BMI] 33.0-33.9, adult; Z79.899 Other long term (current) drug therapy; F41.9 Anxiety disorder, unspecified; Z87.891 Personal history of nicotine dependence; Z83.3 Family history of diabetes mellitus; Z84.89 Family history of other specified conditions
CPT/HCPCS: 96376; 96361; 96374; 96375; 99284; 36415; 80053; 82150; 83690; 85025; 81003; G0378 ×2; J2060; J2270; J1200; J1630; J2765; J2405 ×2; J1885 ×2; J1170 ×2

== ENCOUNTER 2018-01-30 01:15 | Emergency (ER) | payer OTHER ==
[2018-01-30] MEDS ORDERED: FAMOTIDINE 20 MG/2 ML VIAL IV STA (01:34)
[2018-01-30] MEDS ORDERED: ONDANSETRON 4 MG/2 ML VIAL IVP STA (01:34)
[2018-01-30] MEDS ORDERED: LORazepam 2 MG/ML INJ IV STA (01:34)
[2018-01-30] MEDS ORDERED: KETOROLAC 30 MG/ML 1 ML VIAL IVP STA (01:35)
[2018-01-30 01:49] LABS: Basophils # (A) 0.1 k/uL (0-0.2); Basophils % (A) 0 %; Eosinophils # (A) 0.4 k/uL (0-0.7); Eosinophils % (A) 3 %; HCT 47.7 % (39.0-53.0); Lymphocytes # (A) 3.4 k/uL (1.0-4.8); Lymphocytes % (A) 22 %; MCHC 33.6 g/dL (31.0-37.0); MCV 86.2 fL (80.0-100.0); Mean Platelet Volume 7.6; Monocytes # (A) 0.7 k/uL (0-1.0); Monocytes % (A) 5 %; Neutrophils # (A) 10.7 k/uL (1.3-7.7); Neutrophils % (A) 69 %; Platelet Count 380 k/uL (150-450); RBC 5.53 m/uL (4.30-5.90); RDW 12.8 % (11.5-15.5); WBC 15.5 k/uL (3.8-10.6)
[2018-01-30] MEDS ORDERED: SODIUM CHLORIDE 0.9% 1,000 ML IV ONE (01:51)
[2018-01-30 02:01] LABS: ALT 41 U/L (21-72); AST 22 U/L (17-59); Alkaline Phosphatase 64 U/L (38-126); Amylase 83 U/L (30-110); Anion Gap 12 mmol/L; Blood Urea Nitrogen 15 mg/dL (9-20); Calcium 10.6 mg/dL (8.4-10.2); Carbon Dioxide 27 mmol/L (22-30); Chloride 104 mmol/L (98-107); Glucose 106 mg/dL (74-99); Lipase 332 U/L (23-300); Potassium 4.2 mmol/L (3.5-5.1); Sodium 143 mmol/L (137-145); Total Bilirubin 0.9 mg/dL (0.2-1.3)
--- NOTE | 2018-01-30 02:03 | ED ---
General Adult HPI - General Source: patient, RN notes reviewed Mode of arrival: ambulatory Limitations: no limitations <Quentin Francisco P - Last Filed: 01/30/18 03:36> <Diamante Cox P - Last Filed: 01/31/18 04:04> - General Chief complaint: Nausea/Vomiting/Diarrhea Stated complaint: Abdominal Pain Time Seen by Provider: 01/30/18 01:20 - History of Present Illness Initial comments: 32-year-old male with a past medical history of cyclic vomiting syndrome presents to the emergency department for a chief complaint of vomiting 1 hour. Patient states he has vomited multiple times. He states he also has upper abdominal pain. He states this has been ongoing for the past 3 hours. Patient states the symptoms are all consistent with cyclic vomiting syndrome. Patient states he does not want any x-rays. Patient states Dilaudid is the only thing that works for him. Patient has no other complaints at this time including shortness of breath, chest pain, headache, or visual changes. (Quentin Francisco) - Related Data Home Medications Medication Instructions Recorded Confirmed LORazepam [Ativan] 1 mg PO QID PRN 09/28/17 01/30/18 Propranolol [Inderal] 20 mg PO BID 09/28/17 01/30/18 Escitalopram [Lexapro] 10 mg PO DAILY 01/26/18 01/30/18 Hydrocodone/Acetaminophen [[place] 1 tab PO Q6HR PRN 01/26/18 01/30/18 7.5-325] Previous Rx's Medication Instructions Recorded Amitriptyline HCl 50 mg PO HS #7 tab 12/16/17 Ondansetron [Zofran ODT] 4 mg PO Q8HR PRN #12 tab 01/30/18 Allergies Allergy/AdvReac Type Severity Reaction Status Date / Time No Known Allergies Allergy Verified 01/30/18 09:01 Review of Systems ROS Other: All systems not noted in ROS Statement are negative. <Quentin Francisco - Last Filed: 01/30/18 03:36> ROS Other: All systems not noted in ROS Statement are negative. <Diamante Cox P - Last Filed: 01/31/18 04:04> ROS Statement: Those systems with pertinent positive or pertinent negative responses have been documented in the HPI. Past Medical History Past Medical History: Asthma, GERD/Reflux Additional Past Medical History / Comment(s): cyclic vomiting syndrome, back pain '"RUPTURE DISC" History of Any Multi-Drug Resistant Organisms: None Reported Past Surgical History: Adenoidectomy, Appendectomy, Cholecystectomy Additional Past Surgical History / Comment(s): EGD Past Anesthesia/Blood Transfusion Reactions: No Reported Reaction Past Psychological History: Anxiety Smoking Status: Former smoker Past Alcohol Use History: None Reported Past Drug Use History: Marijuana - Past Family History Father Family Medical History: No Reported History Mother Family Medical History: Diabetes Mellitus Additional Family Medical History / Comment(s): severe food allergies <Quentin Francisco P - Last Filed: 01/30/18 03:36> General Exam Limitations: no limitations General appearance: alert, in no apparent distress Head exam: Present: atraumatic, normocephalic, normal inspection Eye exam: Present: normal appearance, PERRL, EOMI. Absent: scleral icterus, conjunctival injection, periorbital swelling ENT exam: Present: normal exam, mucous membranes moist Neck exam: Present: normal inspection, full ROM. Absent: tenderness, meningismus, lymphadenopathy Respiratory exam: Present: normal lung sounds bilaterally. Absent: respiratory distress, wheezes, rales, rhonchi, stridor Cardiovascular Exam: Present: regular rate, normal rhythm, normal heart sounds. Absent: systolic murmur, diastolic murmur, rubs, gallop, clicks GI/Abdominal exam: Present: soft, tenderness (Tenderness to the epigastric and right upper quadrant area), normal bowel sounds. Absent: distended, guarding, rebound, rigid Neurological exam: Present: alert, oriented X3, CN II-XII intact Psychiatric exam: Present: normal affect, normal mood <Quentin Francisco P - Last Filed: 01/30/18 03:36> Vital Signs 01/30/18 01/30/18 01/30/18 01:19 02:48 04:38 Temperature 97.7 F 98.2 F Pulse Rate 88 98 100 Respiratory 18 19 18 Rate Blood Pressure 143/89 159/102 152/89 O2 Sat by Pulse 99 98 98 Oximetry Medical Decision Making - Lab Data Result diagrams: 01/30/18 01:32 01/30/18 01:32 <Quentin Francisco P - Last Filed: 01/30/18 03:36> - Lab Data Result diagrams: 01/30/18 01:32 01/30/18 01:32 <Diamante Cox P - Last Filed: 01/31/18 04:04> - Medical Decision Making 32-year-old male with a past medical history of cyclic vomiting syndrome presents to the emergency department for a chief complaint of vomiting 1 hour. Patient has had upper abdominal pain for the past 3 hours. He refuses any imaging. On presentation vitals are within acceptable limits. On exam he does have some upper abdominal tenderness. Patient currently vomiting. CBC shows a white count of 15.5, likely reactive. CMP unremarkable. Lipase minimally elevated at 332, amylase within normal limits, do not suspect acute pancreatitis at this time. Patient given multiple antiemetics and pain medications. On reevaluation patient is feeling much better. Patient has not vomited in over an hour while here. Patient is stable for discharge home. He will return if he has any worsening symptoms. He has an appointment tomorrow with his primary care provider Dr. Lewis. He will attend this appointment. ( Quentin Farncisco) I was available for consultation in the emergency department. The history and physical exam were done by the midlevel provider. I was consulted for this patient's care. I reviewed the case with the midlevel provider and based on their presentation of the patient, I agree with the assessment, medical decision making and plan of care as documented. (Diamante Cox) - Lab Data Lab Results 01/30/18 01/30/18 Range/Units 01:32 01:32 WBC 15.5 H (3.8-10.6) k/uL RBC 5.53 (4.30-5.90) m/uL Hgb 16.0 (13.0-17.5) gm/dL Hct 47.7 (39.0-53.0) % MCV 86.2 (80.0-100.0) fL MCH 29.0 (25.0-35.0) pg MCHC 33.6 (31.0-37.0) g/dL RDW 12.8 (11.5-15.5) % Plt Count 380 (150-450) k/uL Neutrophils % 69 % Lymphocytes % 22 % Monocytes % 5 % Eosinophils % 3 % Basophils % 0 % Neutrophils # 10.7 H (1.3-7.7) k/uL Lymphocytes # 3.4 (1.0-4.8) k/uL Monocytes # 0.7 (0-1.0) k/uL Eosinophils # 0.4 (0-0.7) k/uL Basophils # 0.1 (0-0.2) k/uL Sodium 143 (137-145) mmol/L Potassium 4.2 (3.5-5.1) mmol/L Chloride 104 (98-107) mmol/L Carbon Dioxide 27 (22-30) mmol/L Anion Gap 12 mmol/L BUN 15 (9-20) mg/dL Creatinine 0.93 (0.66-1.25) mg/dL Est GFR (CKD-EPI)AfAm >90 (>60 ml/min/1.73 sqM) Est GFR (CKD-EPI)NonAf >90 (>60 ml/min/1.73 sqM) Glucose 106 H (74-99) mg/dL Calcium 10.6 H (8.4-10.2) mg/dL Total Bilirubin 0.9 (0.2-1.3) mg/dL AST 22 (17-59) U/L ALT 41 (21-72) U/L Alkaline Phosphatase 64 (38-126) U/L Total Protein 8.0 (6.3-8.2) g/dL Albumin 5.0 (3.5-5.0) g/dL Amylase 83 (30-110) U/L Lipase 332 H (23-300) U/L Disposition Is patient prescribed a controlled substance at d/c from ED?: No Time of Disposition: 03:37 <Quentin Francisco P - Last Filed: 01/30/18 03:36> <Diamante Cox P - Last Filed: 01/31/18 04:04> Clinical Impression: Nausea and vomiting, Abdominal pain Disposition: HOME SELF-CARE Condition: Good Instructions: Acute Nausea and Vomiting (ED) Additional Instructions: Take your home medications for symptom relief. Please follow up at your appointment with Dr. Lewis at your appointment tomorrow. Please return to the emergency department if you have any worsening symptoms. Prescriptions: Ondansetron [Zofran ODT] 4 mg PO Q8HR PRN #12 tab PRN Reason: Nausea Referrals: Sher Lewis MD [Primary Care Provider] - 1-2 days
[2018-01-30] MEDS ORDERED: HYDROmorphone 0.5 MG/0.5 ML SYRINGE IVP STA ×2 (02:10→03:05)
[2018-01-30] MEDS ORDERED: PROMETHAZINE INJ 25 MG in SODIUM CHLORIDE 0.9% 50 ML IVPB STA (03:05)
[2018-01-30 04:39] VITALS: BP 152/89; PULSE 100; RESP 18; TEMP 98.2
== END 2018-01-30 04:39 | disposition home or self-care (01) ==
LOC: EC 01:15
DX: R10.11 Right upper quadrant pain (principal); R10.13 Epigastric pain; R11.2 Nausea with vomiting, unspecified; F41.9 Anxiety disorder, unspecified; Z87.891 Personal history of nicotine dependence; Z79.899 Other long term (current) drug therapy
CPT/HCPCS: 99284 ×2; 96374 ×2; 96375 ×6; 96376 ×2; 96361 ×2; 99283; 36415; 80053; 82150; 83690; 85025; J2060; J1200; J2550; J2765; J2405; J1885; J1170 ×2; C9113

== ENCOUNTER 2018-01-30 08:37 | Emergency (ER) | payer OTHER ==
[2018-01-30 08:41] VITALS: RESP 18
[2018-01-30] MEDS ORDERED: diphenhydrAMINE 50 MG/ML 1 ML VIAL IVP STA (08:45)
[2018-01-30] MEDS ORDERED: METOCLOPRAMIDE 5 MG/ML 2 ML VIAL IVP STA (08:45)
[2018-01-30] MEDS ORDERED: SODIUM CHLORIDE 0.9% 1,000 ML IV ONE (08:45)
[2018-01-30] MEDS ORDERED: LORazepam 2 MG/ML INJ IV STA (08:46)
--- NOTE | 2018-01-30 08:56 | ED ---
Abdominal Pain HPI - General Chief Complaint: Abdominal Pain Stated Complaint: Vomiting Time Seen by Provider: 01/30/18 08:41 Source: patient Mode of arrival: ambulatory Limitations: no limitations - History of Present Illness Initial Comments: 32-year-old male patient with past medical history significant for chronic abdominal pain and cyclic vomiting syndrome presents to the emergency department today for evaluation of vomiting and abdominal pain. Patient states that he was seen and evaluated here earlier this morning for similar symptoms. States he felt better for about an hour and then symptoms returned. States he has been having persistent vomiting for the last 3 hours. Patient states he is having severe upper abdominal pain. Patient denies any fevers or chills with this. Denies any hematemesis, hematochezia, melena. Denies any diarrhea. Denies any new symptoms, states his symptoms are consistent with his usual cyclic vomiting pattern. Patient denies any recent rash, shortness breath, chest pain, back pain, numbness, tingling, dizziness, weakness, hematuria, dysuria, urinary urgency, urinary frequency, headache, visual changes, or any other complaints. - Related Data Home Medications Medication Instructions Recorded Confirmed LORazepam [Ativan] 1 mg PO QID PRN 09/28/17 01/30/18 Propranolol [Inderal] 20 mg PO BID 09/28/17 01/30/18 Escitalopram [Lexapro] 10 mg PO DAILY 01/26/18 01/30/18 Hydrocodone/Acetaminophen [[place] 1 tab PO Q6HR PRN 01/26/18 01/30/18 7.5-325] Previous Rx's Medication Instructions Recorded Amitriptyline HCl 50 mg PO HS #7 tab 12/16/17 Ondansetron [Zofran ODT] 4 mg PO Q8HR PRN #12 tab 01/30/18 Allergies Allergy/AdvReac Type Severity Reaction Status Date / Time No Known Allergies Allergy Verified 01/30/18 09:01 Review of Systems ROS Statement: Those systems with pertinent positive or pertinent negative responses have been documented in the HPI. ROS Other: All systems not noted in ROS Statement are negative. Past Medical History Past Medical History: Asthma, GERD/Reflux Additional Past Medical History / Comment(s): cyclic vomiting syndrome, back pain '"RUPTURE DISC" History of Any Multi-Drug Resistant Organisms: None Reported Past Surgical History: Adenoidectomy, Appendectomy, Cholecystectomy Additional Past Surgical History / Comment(s): EGD Past Anesthesia/Blood Transfusion Reactions: No Reported Reaction Past Psychological History: Anxiety Smoking Status: Former smoker Past Alcohol Use History: None Reported Past Drug Use History: Marijuana - Past Family History Father Family Medical History: No Reported History Mother Family Medical History: Diabetes Mellitus Additional Family Medical History / Comment(s): severe food allergies General Exam Limitations: no limitations General appearance: alert, in no apparent distress, other (This is a well- developed, well-nourished adult male patient in mild distress related to pain. Vital signs upon presentation are temperature 98.1F, pulse 82, respirations 18 , blood pressure 151/103, pulse ox 98% on room air.) Eye exam: Present: normal appearance, PERRL, EOMI. Absent: scleral icterus, conjunctival injection, periorbital swelling ENT exam: Present: normal exam, normal oropharynx, mucous membranes moist Respiratory exam: Present: normal lung sounds bilaterally. Absent: respiratory distress, wheezes, rales, rhonchi, stridor Cardiovascular Exam: Present: regular rate, normal rhythm, normal heart sounds. Absent: systolic murmur, diastolic murmur, rubs, gallop, clicks GI/Abdominal exam: Present: soft, tenderness (Midepigastric and right upper quadrant tenderness), normal bowel sounds. Absent: distended, guarding, rebound , rigid Neurological exam: Present: alert, oriented X3, CN II-XII intact Psychiatric exam: Present: normal affect, normal mood Skin exam: Present: warm, dry, intact, normal color. Absent: rash Course Vital Signs 01/30/18 08:39 Temperature 98.1 F Pulse Rate 82 Respiratory 18 Rate Blood Pressure 151/103 O2 Sat by Pulse 98 Oximetry Medical Decision Making - Medical Decision Making 32-year-old male patient with history of cyclic vomiting syndrome and chronic abdominal pain presents to the emergency department today for persistent vomiting and upper abdominal pain. Patient was seen and evaluated here early this morning, labs are performed and were unremarkable. Patient was discharged home with return of symptoms shortly after. Physical examination did reveal some upper abdominal tenderness. Vital signs are stable. Patient was given medication and IV fluids here in the department. Upon reevaluation states he is feeling much improved. He does feel comfortable being discharged home at this time. He does have appointment with his primary care physician tomorrow. Return parameters were discussed in detail. He verbalizes understanding and agrees with this plan. Disposition Clinical Impression: Cyclic vomiting syndrome Disposition: HOME SELF-CARE Condition: Good Instructions: Cyclic Vomiting Syndrome (ED) Additional Instructions: Continue home medications. Start with clear liquid diet and advance as tolerated. Follow-up with your primary care physician for recheck in 1-2 days. Return immediately for any new, worsening, or concerning symptoms. Is patient prescribed a controlled substance at d/c from ED?: No Referrals: Sher Lewis MD [Primary Care Provider] - 1-2 days Time of Disposition: 10:29
[2018-01-30] MEDS ORDERED: PANTOPRAZOLE 40 MG/10 ML VIAL IVP STA (09:57)
[2018-01-30] MEDS ORDERED: HYDROmorphone 1 MG/ML 1 ML SYRINGE IVP STA (09:57)
[2018-01-30 10:41] VITALS: BP 132/84; PULSE 78; TEMP 98
== END 2018-01-30 10:41 | disposition home or self-care (01) ==
LOC: EC 08:37
DX: G43.A0 Cyclical vomiting, in migraine, not intractable (principal); F41.9 Anxiety disorder, unspecified; Z87.891 Personal history of nicotine dependence; Z90.49 Acquired absence of other specified parts of digestive tract; Z79.899 Other long term (current) drug therapy
CPT/HCPCS: 99283; 96374; 96375 ×4; 96361; J2060; J1200; J2765; J1170; C9113

== ENCOUNTER 2018-03-14 13:57 | Emergency (ER) | payer OTHER ==
[2018-03-14 14:00] VITALS: RESP 18; TEMP 98.2
[2018-03-14] MEDS ORDERED: SODIUM CHLORIDE 0.9% 1,000 ML IV STA (14:44)
[2018-03-14 14:58] LABS: Basophils % (A) 0 %; Eosinophils # (A) 0.1 k/uL (0-0.7); Eosinophils % (A) 0 %; HCT 48.2 % (39.0-53.0); HGB 16.1 gm/dL (13.0-17.5); Lymphocytes % (A) 6 %; MCH 29.2 pg (25.0-35.0); MCHC 33.3 g/dL (31.0-37.0); MCV 87.6 fL (80.0-100.0); Monocytes # (A) 0.3 k/uL (0-1.0); Monocytes % (A) 2 %; Neutrophils # (A) 13.5 k/uL (1.3-7.7); Neutrophils % (A) 91 %; Platelet Count 380 k/uL (150-450); RBC 5.51 m/uL (4.30-5.90); WBC 14.9 k/uL (3.8-10.6)
[2018-03-14] MEDS ORDERED: LORazepam 2 MG/ML INJ IM STA ×2 (15:00→18:43)
[2018-03-14] MEDS ORDERED: FAMOTIDINE 20 MG/2 ML VIAL IV STA (15:00)
[2018-03-14] MEDS ORDERED: MORPHINE SULFATE 4 MG/ML SYRINGE IV STA (15:01)
[2018-03-14] MEDS ORDERED: ONDANSETRON 4 MG/2 ML VIAL IVP STA ×2 (15:01→17:30)
[2018-03-14 15:07] LABS: ALT 37 U/L (21-72); AST 20 U/L (17-59); Albumin 5.3 g/dL (3.5-5.0); Alkaline Phosphatase 72 U/L (38-126); Amylase 61 U/L (30-110); Anion Gap 13 mmol/L; Blood Urea Nitrogen 15 mg/dL (9-20); Calcium 10.7 mg/dL (8.4-10.2); Carbon Dioxide 26 mmol/L (22-30); Chloride 105 mmol/L (98-107); Glucose 130 mg/dL (74-99); Lipase 56 U/L (23-300); Potassium 4.6 mmol/L (3.5-5.1); Sodium 144 mmol/L (137-145); Total Bilirubin 1.2 mg/dL (0.2-1.3); Total Protein 8.5 g/dL (6.3-8.2)
--- NOTE | 2018-03-14 16:19 | ED ---
General Adult HPI - General Chief complaint: Abdominal Pain Stated complaint: Abd pain Time Seen by Provider: 03/14/18 14:38 Source: patient, RN notes reviewed, old records reviewed Mode of arrival: ambulatory Limitations: no limitations - History of Present Illness Initial comments: 32-year-old male patient past medical history of cyclic vomiting syndrome, chronic abdominal pain, appendectomy, cholecystectomy presents to ED with abdominal pain, nausea vomiting. Patient states that this feels exactly the same as his exacerbation of cyclic vomiting in the past. Patient states that his abdominal pain is located in his upper quadrants, consistent with his pain in the past. Patient denies any other complaints today. Patient has chest pain , shortness of breath, fevers or chills, headache, changes in vision. Systemic: Pt denies fatigue, myalgia, fever/chills, rash. Pt denies weakness, night sweats, weight loss. Neuro: Pt denies headache, visual disturbances, syncope or pre-syncope. HEENT: Pt denies ocular discharge or irritation, otalgia, rhinorrhea, pharyngitis or notable lymphadenopathy. Cardiopulmonary: Pt denies chest pain, SOB, heart palpitations, dyspnea on exertion. : Pt denies dysuria, burning w/ urination, frequency/urgency. Denies new onset urinary or bowel incontinence. MSK: Pt denies myalgia, loss of strength or function in extremities. Neuro: Pt denies new onset weakness, paresthesias. - Related Data Home Medications Medication Instructions Recorded Confirmed LORazepam [Ativan] 1 mg PO QID PRN 09/28/17 03/14/18 Propranolol [Inderal] 20 mg PO BID 09/28/17 03/14/18 Escitalopram [Lexapro] 10 mg PO DAILY 01/26/18 03/14/18 Hydrocodone/Acetaminophen [[place] 1 tab PO Q6HR PRN 01/26/18 03/14/18 7.5-325] Previous Rx's Medication Instructions Recorded Amitriptyline HCl 50 mg PO HS #7 tab 12/16/17 Ondansetron [Zofran ODT] 4 mg PO Q8HR PRN #12 tab 01/30/18 Ondansetron [Zofran] 4 mg PO Q8HR PRN #15 tab 03/14/18 Allergies Allergy/AdvReac Type Severity Reaction Status Date / Time No Known Allergies Allergy Verified 03/14/18 14:34 Review of Systems ROS Statement: Those systems with pertinent positive or pertinent negative responses have been documented in the HPI. ROS Other: All systems not noted in ROS Statement are negative. Past Medical History Past Medical History: Asthma, GERD/Reflux Additional Past Medical History / Comment(s): cyclic vomiting syndrome, back pain '"RUPTURE DISC" History of Any Multi-Drug Resistant Organisms: None Reported Past Surgical History: Adenoidectomy, Appendectomy, Cholecystectomy Additional Past Surgical History / Comment(s): EGD Past Anesthesia/Blood Transfusion Reactions: No Reported Reaction Past Psychological History: Anxiety Smoking Status: Former smoker Past Alcohol Use History: None Reported Past Drug Use History: Marijuana - Past Family History Father Family Medical History: No Reported History Mother Family Medical History: Diabetes Mellitus Additional Family Medical History / Comment(s): severe food allergies General Exam - General Exam Comments Initial Comments: Constitutional: NAD, AOX3, Pt has pleasant affect. HEENT: NC/AT, trachea midline, neck supple, no lymphadenopathy. Posterior pharynx non erythematous, without exudates. External ears appear normal, without discharge. Mucous membranes moist. Eyes PERRLA, EOM intact. There is no scleral icterus. No pallor noted. Cardiopulmonary: RRR, no murmurs, rubs or gallops, no JVD noted. Lungs CTAB in anterior and posterior [place]. No peripheral edema. Abdominal exam: Abdomen soft and non-distended. Abdomen mildly tender to palpation in upper quadrants. No guarding no rigidity. Bowel sounds active in LLQ. No hepatosplenomegaly. No ecchymosis Neuro: CN II-XII grossly intact. No nuchal rigidity. MSK: No posterior calf tenderness bilaterally, homans sign negative bilaterally. Posterior tibialis and radial pulse +2 bilaterally. Sensation intact in upper and lower extremities. Full active ROM in upper and lower extremities, 5/5 stregnth. Limitations: no limitations Course Vital Signs 03/14/18 13:58 Temperature 98.2 F Pulse Rate 79 Respiratory 18 Rate Blood Pressure 165/95 O2 Sat by Pulse 100 Oximetry Medical Decision Making - Medical Decision Making 32-year-old male patient past medical history of cyclic vomiting syndrome, chronic abdominal pain, appendectomy, cholecystectomy presents to ED with abdominal pain, nausea vomiting. Patient states that this feels exactly the same as his exacerbation of cyclic vomiting in the past. Patient states that his abdominal pain is located in his upper quadrants, consistent with his pain in the past. Patient vital signs stable, afebrile. Physical exam displayed: Abdomen soft and non-distended. Abdomen mildly tender to palpation in upper quadrants. No guarding no rigidity. Laboratory investigations revealed mild leukocytosis, likely reactive. CMP within normal limits. Amylase lipase normal limits. Lactic acid wnl. KUB displayed no acute abdomen. Patient improved with administration of Ativan, pain medication, Zofran, IV fluids. Patient to follow-up with PCP in 1-2 days. Patient to follow with Dr. Matthew in 1-2 days. Pt to return to ED if new s/sx develop or if condition worsens in anyway. Case discussed in depth with Dr. Anderson. - Lab Data Result diagrams: 03/14/18 14:05 03/14/18 14:05 Lab Results 03/14/18 03/14/18 03/14/18 Range/Units 14:05 14:05 14:05 WBC 14.9 H (3.8-10.6) k/uL RBC 5.51 (4.30-5.90) m/uL Hgb 16.1 (13.0-17.5) gm/dL Hct 48.2 (39.0-53.0) % MCV 87.6 (80.0-100.0) fL MCH 29.2 (25.0-35.0) pg MCHC 33.3 (31.0-37.0) g/dL RDW 13.0 (11.5-15.5) % Plt Count 380 (150-450) k/uL Neutrophils % 91 % Lymphocytes % 6 % Monocytes % 2 % Eosinophils % 0 % Basophils % 0 % Neutrophils # 13.5 H (1.3-7.7) k/uL Lymphocytes # 1.0 (1.0-4.8) k/uL Monocytes # 0.3 (0-1.0) k/uL Eosinophils # 0.1 (0-0.7) k/uL Basophils # 0.0 (0-0.2) k/uL Sodium 144 (137-145) mmol/L Potassium 4.6 (3.5-5.1) mmol/L Chloride 105 (98-107) mmol/L Carbon Dioxide 26 (22-30) mmol/L Anion Gap 13 mmol/L BUN 15 (9-20) mg/dL Creatinine 0.80 (0.66-1.25) mg/dL Est GFR (CKD-EPI)AfAm >90 (>60 ml/min/1.73 sqM) Est GFR (CKD-EPI)NonAf >90 (>60 ml/min/1.73 sqM) Glucose 130 H (74-99) mg/dL Plasma Lactic Acid [place] 1.9 (0.7-2.0) mmol/L Calcium 10.7 H (8.4-10.2) mg/dL Total Bilirubin 1.2 (0.2-1.3) mg/dL AST 20 (17-59) U/L ALT 37 (21-72) U/L Alkaline Phosphatase 72 (38-126) U/L Total Protein 8.5 H (6.3-8.2) g/dL Albumin 5.3 H (3.5-5.0) g/dL Amylase 61 (30-110) U/L Lipase 56 (23-300) U/L Disposition Clinical Impression: Nausea and vomiting Disposition: HOME SELF-CARE Condition: Stable Instructions (If sedation given, give patient instructions): Acute Nausea and Vomiting (ED) Additional Instructions: Patient to adhere to previously discussed treatment plan and will take medication(s) as directed. Patient to follow up with PCP in 1-2 days. Patient to return to ED if symptoms do not improve. Prescriptions: Ondansetron [Zofran] 4 mg PO Q8HR PRN #15 tab PRN Reason: Nausea Is patient prescribed a controlled substance at d/c from ED?: No Referrals: Sher Lewis MD [Primary Care Provider] - 1-2 days Milla Matthew MD [STAFF PHYSICIAN] - 1-2 days Time of Disposition: 19:58
[2018-03-14] MEDS ORDERED: HYDROmorphone 0.5 MG/0.5 ML SYRINGE IVP STA ×2 (17:00→17:32)
--- NOTE | 2018-03-14 18:28 | XR ---
EXAMINATION TYPE: XR KUB DATE OF EXAM: 03/14/2018 COMPARISON: 10/29/2017 HISTORY: Right upper quadrant pain TECHNIQUE: 2 views FINDINGS: Bowel gas pattern is normal. There is no sign of intestinal obstruction or pneumoperitoneum . Fecal pattern is normal. There are clips from cholecystectomy. Lung bases are clear. IMPRESSION: Nonacute abdomen. No change.
[2018-03-14] MEDS ORDERED: diphenhydrAMINE 50 MG/ML 1 ML VIAL IVP STA (18:43)
[2018-03-14 20:25] VITALS: BP 103/54; PULSE 85
== END 2018-03-14 20:25 | disposition home or self-care (01) ==
LOC: EC 13:57
DX: R11.2 Nausea with vomiting, unspecified (principal); R10.10 Upper abdominal pain, unspecified; F41.9 Anxiety disorder, unspecified; Z87.891 Personal history of nicotine dependence; Z79.899 Other long term (current) drug therapy; Z90.49 Acquired absence of other specified parts of digestive tract
CPT/HCPCS: 36415; 80053; 82150; 83605; 83690; 85025; 74018; 99284; 96374; 96375 ×4; 96376 ×2; 96361; 96372 ×2; J2060; J2270; J1200; J2405; J1170

== ENCOUNTER 2018-03-19 09:50 | Emergency (ER) | payer OTHER ==
[2018-03-19 09:54] VITALS: TEMP 99
[2018-03-19] MEDS ORDERED: SODIUM CHLORIDE 0.9% 1,000 ML IV STA (10:03)
[2018-03-19] MEDS ORDERED: ONDANSETRON 4 MG/2 ML VIAL IVP STA (10:59)
[2018-03-19] MEDS ORDERED: HYDROmorphone 0.5 MG/0.5 ML SYRINGE IVP STA ×2 (10:59→13:30)
[2018-03-19] MEDS ORDERED: FAMOTIDINE 20 MG/2 ML VIAL IV STA (11:00)
[2018-03-19] MEDS ORDERED: diphenhydrAMINE 50 MG/ML 1 ML VIAL IVP STA (11:00)
[2018-03-19 11:01] LABS: Basophils # (A) 0.1 k/uL (0-0.2); Basophils % (A) 0 %; Eosinophils # (A) 0.2 k/uL (0-0.7); Eosinophils % (A) 1 %; HCT 48.5 % (39.0-53.0); HGB 16.3 gm/dL (13.0-17.5); Lymphocytes % (A) 13 %; MCH 29.2 pg (25.0-35.0); MCHC 33.7 g/dL (31.0-37.0); MCV 86.9 fL (80.0-100.0); Mean Platelet Volume 6.9; Monocytes # (A) 0.4 k/uL (0-1.0); Monocytes % (A) 3 %; Neutrophils % (A) 82 %; Platelet Count 388 k/uL (150-450); RBC 5.59 m/uL (4.30-5.90); RDW 12.9 % (11.5-15.5); WBC 15.8 k/uL (3.8-10.6)
--- NOTE | 2018-03-19 11:07 | ED ---
Abdominal Pain HPI - General Chief Complaint: Abdominal Pain Stated Complaint: abd pain Time Seen by Provider: 03/19/18 10:03 Source: patient Mode of arrival: ambulatory Limitations: no limitations - History of Present Illness Initial Comments: 33-year-old male past medical history of cyclic nausea and vomiting present today for chief complaint of nausea vomiting and right-sided abdominal pain. Patient states that multiple times a week he experiences nausea and vomiting as well as severe right-sided abdominal pain, he denies any changes today stating this is his usual pain. Patient states he was just seen here previously last week and had 2 days of symptom relief in between visits. Patient denies any changes in characteristic of the pain he states is sharp stabbing of the entire right side of the abdomen without radiation. Patient denies any hematemesis, melena hematochezia, diarrhea fever, chills, chest pain, dyspnea, dyspnea on exertion. Patient denies any recent travel, or dietary changes. Patient states that he usually gets Zofran and Dilaudid lorazepam Benadryl and something for acid when he experiences the symptoms and it seems to help. He named all these medications by name. Upon history taking patient has emesis basin next to him that is filled with vomit/bile, no evidence of blood. Upon patient's arrival his vital signs reveal elevated blood pressure remained are within acceptable limits. Remaining review of systems negative, patient denies any recent shortness of breath, chest pain, back pain, flank pain, numbness or tingling, dysuria, urgency, frequency or hematuria, constipation or diarrhea, headaches or visual changes, or any other complaints. - Related Data Home Medications Medication Instructions Recorded Confirmed LORazepam [Ativan] 1 mg PO QID PRN 09/28/17 03/19/18 Propranolol [Inderal] 20 mg PO BID 09/28/17 03/19/18 Escitalopram [Lexapro] 10 mg PO DAILY 01/26/18 03/19/18 Hydrocodone/Acetaminophen [[place] 1 tab PO Q6HR PRN 01/26/18 03/19/18 7.5-325] Previous Rx's Medication Instructions Recorded Amitriptyline HCl 50 mg PO HS #7 tab 12/16/17 Ondansetron [Zofran] 4 mg PO Q8HR PRN #15 tab 03/14/18 Allergies Allergy/AdvReac Type Severity Reaction Status Date / Time No Known Allergies Allergy Verified 03/19/18 10:12 Review of Systems ROS Statement: Those systems with pertinent positive or pertinent negative responses have been documented in the HPI. ROS Other: All systems not noted in ROS Statement are negative. Past Medical History Past Medical History: Asthma, GERD/Reflux Additional Past Medical History / Comment(s): cyclic vomiting syndrome, back pain '"RUPTURE DISC" History of Any Multi-Drug Resistant Organisms: None Reported Past Surgical History: Adenoidectomy, Appendectomy, Cholecystectomy Additional Past Surgical History / Comment(s): EGD Past Anesthesia/Blood Transfusion Reactions: No Reported Reaction Past Psychological History: Anxiety Smoking Status: Former smoker Past Alcohol Use History: None Reported Past Drug Use History: Marijuana - Past Family History Father Family Medical History: No Reported History Mother Family Medical History: Diabetes Mellitus Additional Family Medical History / Comment(s): severe food allergies General Exam - General Exam Comments Initial Comments: General: The patient is awake and alert, in no distress, and does not appear acutely ill. Eye: Pupils are equal, round and reactive to light, extra-ocular movements are intact. No nystagmus. There is normal conjunctiva bilaterally. No signs of icterus. Ears, nose, mouth and throat: There are moist mucous membranes and no oral lesions. Neck: The neck is supple, there is no tenderness or JVD. Cardiovascular: There is a regular rate and rhythm. No murmur, rub or gallop is appreciated. Respiratory: Lungs are clear to auscultation, respirations are non-labored, breath sounds are equal. No wheezes, stridor, rales, or rhonchi. Gastrointestinal: No noted diaphoresis, jaundice, pallor, protecting postures. Pt is squirming Symmetrical pigmentation of abdomen without signs of inflammation.. Umbilicus mildline, inverted without swelling. No dilated veins. Abdomen contour obese, no noted abdominal distention. No visible masses. No peristalsis, aortic pulsations, or ventral hernia. Bowel sounds audible in all 4 quadrants, unremarkable. She diffusely tender to palpation of the abdomen. Nonspecific localization. No rigidity or guarding. Liver edge, not palpable. Spleen edge, right and left kidney not palpable. Superior bladder margin non-tender. Special Testing: Negative Mertens, Rovsing, McBurney, Nitish, cutaneous hyperesthesia. Negative Heel Jar test/estela sign. Digital rectal exam deferred. Negative bustamante turners or cullens sign Musculoskeletal: Normal ROM, no tenderness. Strength 5/5. Sensation intact. Pulses equal bilaterally 2+. Neurological: A&O x 3. CN II-XII intact, There are no obvious motor or sensory deficits. Coordination appears grossly intact. Speech is normal. Skin: Skin is warm and dry and no rashes or lesions are noted. Psychiatric: Cooperative, appropriate mood & affect, normal judgment. Limitations: no limitations Course Vital Signs 03/19/18 03/19/18 09:51 13:03 Temperature 99 F Pulse Rate 76 70 Respiratory 18 20 Rate Blood Pressure 155/98 157/109 O2 Sat by Pulse 97 Oximetry Medical Decision Making - Medical Decision Making 33-year-old male well-known to the emergency department for cyclic nausea and vomiting presents today for chief complaint of right-sided abdominal pain, nausea or vomiting, he denies any changes in characteristic to his typical pain associated with nausea and vomiting. He states he usually has a specific medication regimen which alleviate symptoms. An acute abdominal series with chest x-ray was ordered however pt refused imaging stating "it wont show anything, these are the same symptoms I always have". Abdominal exam does not appear to be consistent with acute abdomen. Patient was given various anti- nausea medication as well as Dilaudid and lorazepam for symptom relief. IV hydration provided. Patient admitted to significant relief stating is agreeable discharge. Laboratory studies unremarkable, BUN within normal limits, no elevation of Cr and electrolytes within acceptable limits. At this time comfortable discharging patient with outpatient follow-up, he states he does have an appointment with his primary care provider 03/20/18. Pt discharged appearing well, denied questions at this time. Improvement of symptoms. Case was discussed with attending provider Dr. Matute prior to patient d/c - Lab Data Result diagrams: 03/19/18 10:41 03/19/18 10:41 Lab Results 03/19/18 03/19/18 03/19/18 Range/Units 10:41 10:41 14:29 WBC 15.8 H (3.8-10.6) k/uL RBC 5.59 (4.30-5.90) m/uL Hgb 16.3 (13.0-17.5) gm/dL Hct 48.5 (39.0-53.0) % MCV 86.9 (80.0-100.0) fL MCH 29.2 (25.0-35.0) pg MCHC 33.7 (31.0-37.0) g/dL RDW 12.9 (11.5-15.5) % Plt Count 388 (150-450) k/uL Neutrophils % 82 % Lymphocytes % 13 % Monocytes % 3 % Eosinophils % 1 % Basophils % 0 % Neutrophils # 13.0 H (1.3-7.7) k/uL Lymphocytes # 2.0 (1.0-4.8) k/uL Monocytes # 0.4 (0-1.0) k/uL Eosinophils # 0.2 (0-0.7) k/uL Basophils # 0.1 (0-0.2) k/uL Sodium 143 (137-145) mmol/L Potassium 4.3 (3.5-5.1) mmol/L Chloride 105 (98-107) mmol/L Carbon Dioxide 27 (22-30) mmol/L Anion Gap 11 mmol/L BUN 13 (9-20) mg/dL Creatinine 0.80 (0.66-1.25) mg/dL Est GFR (CKD-EPI)AfAm >90 (>60 ml/min/1.73 sqM) Est GFR (CKD-EPI)NonAf >90 (>60 ml/min/1.73 sqM) Glucose 111 H (74-99) mg/dL Calcium 10.9 H (8.4-10.2) mg/dL Total Bilirubin 1.2 (0.2-1.3) mg/dL AST 22 (17-59) U/L ALT 46 (21-72) U/L Alkaline Phosphatase 63 (38-126) U/L Total Protein 8.1 (6.3-8.2) g/dL Albumin 5.2 H (3.5-5.0) g/dL Amylase 77 (30-110) U/L Lipase 163 (23-300) U/L Urine Color Yellow Urine Appearance Clear (Clear) Urine pH 7.5 (5.0-8.0) Ur Specific [place] 1.019 (1.001-1.035) Urine Protein Negative (Negative) Urine Glucose (UA) Negative (Negative) Urine Ketones 2+ H (Negative) Urine Blood Negative (Negative) Urine Nitrite Negative (Negative) Urine Bilirubin Negative (Negative) Urine Urobilinogen <2.0 (<2.0) mg/dL Ur Leukocyte Esterase Negative (Negative) Disposition Clinical Impression: Cyclical vomiting with nausea Disposition: HOME SELF-CARE Condition: Good Instructions (If sedation given, give patient instructions): Cyclic Vomiting Syndrome (ED) Additional Instructions: Please use medication as discussed. Please follow-up with family doctor tomorrow as scheduled. Please return to emergency room if the symptoms increase or worsen or for any other concerns. Is patient prescribed a controlled substance at d/c from ED?: No Referrals: Sher Lewis MD [Primary Care Provider] - 1-2 days Time of Disposition: 16:45
[2018-03-19 11:11] LABS: ALT 46 U/L (21-72); AST 22 U/L (17-59); Albumin 5.2 g/dL (3.5-5.0); Alkaline Phosphatase 63 U/L (38-126); Amylase 77 U/L (30-110); Anion Gap 11 mmol/L; Blood Urea Nitrogen 13 mg/dL (9-20); Calcium 10.9 mg/dL (8.4-10.2); Carbon Dioxide 27 mmol/L (22-30); Chloride 105 mmol/L (98-107); Glucose 111 mg/dL (74-99); Lipase 163 U/L (23-300); Potassium 4.3 mmol/L (3.5-5.1); Sodium 143 mmol/L (137-145); Total Bilirubin 1.2 mg/dL (0.2-1.3); Total Protein 8.1 g/dL (6.3-8.2)
[2018-03-19 13:03] VITALS: BP 157/109; PULSE 70; RESP 20
[2018-03-19] MEDS ORDERED: LORazepam 2 MG/ML INJ IV STA (13:30)
[2018-03-19] MEDS ORDERED: SODIUM CHLORIDE 0.9% 1,000 ML IV ONE (13:30)
[2018-03-19] MEDS ORDERED: METOCLOPRAMIDE 5 MG/ML 2 ML VIAL IVP STA (13:30)
[2018-03-19 14:59] LABS: Appearance,Urine Clear (Clear); Bilirubin,Urine Negative (Negative); Blood,Urine Negative (Negative); Color,Urine Yellow; Glucose,Urine (UA) Negative (Negative); Ketones,Urine 2+ (Negative); Leukocyte Esterase,Urine Negative (Negative); Nitrite,Urine Negative (Negative); PH, Urine 7.5 (5.0-8.0); Protein,Urine Negative (Negative); Specific Gravity,Urine 1.019 (1.001-1.035); Urobilinogen,Urine <2.0 mg/dL (<2.0)
== END 2018-03-19 16:52 | disposition home or self-care (01) ==
LOC: EC 09:50
DX: G43.A0 Cyclical vomiting, in migraine, not intractable (principal); R03.0 Elevated blood-pressure reading, without diagnosis of hypertension; F41.9 Anxiety disorder, unspecified; Z87.891 Personal history of nicotine dependence; Z79.899 Other long term (current) drug therapy; Z87.19 Personal history of other diseases of the digestive system; Z90.49 Acquired absence of other specified parts of digestive tract; Z53.20 Procedure and treatment not carried out because of patient's decision for unspecified reasons
CPT/HCPCS: 36415; 80053; 82150; 83690; 85025; 81003; 99284; 96374; 96375 ×5; 96376; 96361; J2060; J1200; J2765; J2405; J1170

== ENCOUNTER 2018-05-13 17:30 | Emergency (ER) | payer OTHER ==
[2018-05-13] MEDS ORDERED: SODIUM CHLORIDE 0.9% 1,000 ML IV STA (17:51)
[2018-05-13] MEDS ORDERED: KETOROLAC 30 MG/ML 1 ML VIAL IVP STA (17:51)
[2018-05-13] MEDS ORDERED: diphenhydrAMINE 50 MG/ML 1 ML VIAL IVP STA (17:51)
[2018-05-13] MEDS ORDERED: ONDANSETRON 4 MG/2 ML VIAL IVP STA (17:51)
--- NOTE | 2018-05-13 17:55 | ED ---
General Adult HPI - General Chief complaint: Abdominal Pain Stated complaint: Abd pain Time Seen by Provider: 05/13/18 17:43 Source: patient, RN notes reviewed, old records reviewed Mode of arrival: ambulatory Limitations: no limitations - History of Present Illness Initial comments: 33-year-old male presents with epigastric abdominal pain, nausea and vomiting. Patient has history of cyclic vomiting syndrome patient states that he typically develops epigastric abdominal pain followed by nausea and vomiting. His symptoms have progressed since 6 AM this morning. Patient denies fever or chills. Denies cough or URI symptoms. Patient is currently smoking marijuana. He has been instructed that this may be contributory to his symptoms. He states he has cut back but is still smoking on a regular basis. - Related Data Home Medications Medication Instructions Recorded Confirmed LORazepam [Ativan] 1 mg PO QID PRN 09/28/17 03/19/18 Propranolol [Inderal] 20 mg PO BID 09/28/17 03/19/18 Escitalopram [Lexapro] 10 mg PO DAILY 01/26/18 03/19/18 Hydrocodone/Acetaminophen [[place] 1 tab PO Q6HR PRN 01/26/18 03/19/18 7.5-325] Previous Rx's Medication Instructions Recorded Amitriptyline HCl 50 mg PO HS #7 tab 12/16/17 Ondansetron [Zofran] 4 mg PO Q8HR PRN #15 tab 03/14/18 Ondansetron Odt [Zofran Odt] 4 mg PO Q8HR PRN #10 tab 05/13/18 Allergies Allergy/AdvReac Type Severity Reaction Status Date / Time No Known Allergies Allergy Verified 05/13/18 18:13 Review of Systems ROS Statement: Those systems with pertinent positive or pertinent negative responses have been documented in the HPI. ROS Other: All systems not noted in ROS Statement are negative. Past Medical History Past Medical History: Asthma, GERD/Reflux Additional Past Medical History / Comment(s): cyclic vomiting syndrome, back pain '"RUPTURE DISC" History of Any Multi-Drug Resistant Organisms: None Reported Past Surgical History: Adenoidectomy, Appendectomy, Cholecystectomy Additional Past Surgical History / Comment(s): EGD Past Anesthesia/Blood Transfusion Reactions: No Reported Reaction Past Psychological History: Anxiety Smoking Status: Former smoker Past Alcohol Use History: None Reported Past Drug Use History: Marijuana - Past Family History Father Family Medical History: No Reported History Mother Family Medical History: Diabetes Mellitus Additional Family Medical History / Comment(s): severe food allergies General Exam Limitations: no limitations General appearance: alert, in no apparent distress Head exam: Present: atraumatic, normocephalic Eye exam: Present: normal appearance ENT exam: Present: mucous membranes dry Neck exam: Present: normal inspection. Absent: meningismus Respiratory exam: Present: normal lung sounds bilaterally. Absent: respiratory distress, wheezes Cardiovascular Exam: Present: regular rate, normal rhythm GI/Abdominal exam: Present: soft. Absent: distended, tenderness, guarding, rebound Extremities exam: Present: normal inspection, normal capillary refill Neurological exam: Present: alert, oriented X3 Psychiatric exam: Present: normal affect, normal mood Skin exam: Present: warm, dry, intact. Absent: cyanosis, diaphoretic Course Vital Signs 05/13/18 05/13/18 05/13/18 17:33 18:50 19:13 Temperature 99.3 F 99.0 F Pulse Rate 95 78 80 Respiratory 20 22 18 Rate Blood Pressure 142/85 138/82 123/70 O2 Sat by Pulse 98 99 98 Oximetry Medical Decision Making - Medical Decision Making 33-year-old male presenting with abdominal pain, nausea vomiting. History of cyclic vomiting syndrome. Symptoms similar to recurrent episodes in the past. Patient has nonsurgical abdomen, stable vital signs. He is given antiemetics, pain control emergency department. He does have mild leukocytosis at 12.1 however this is improved from his typical leukocytosis. He has some signs of hemoconcentration and dehydration. Patient does not give urine sample in the emergency department. On reevaluation he is feeling somewhat better, he will attempt to control symptoms at home. He is instructed to abstain from marijuana use. - Lab Data Result diagrams: 05/13/18 18:07 05/13/18 18:07 Lab Results 05/13/18 05/13/18 Range/Units 18: 18:07 WBC 12.1 H (3.8-10.6) k/uL RBC 5.91 H (4.30-5.90) m/uL Hgb 17.2 (13.0-17.5) gm/dL Hct 48.7 (39.0-53.0) % MCV 82.5 (80.0-100.0) fL MCH 29.2 (25.0-35.0) pg MCHC 35.3 (31.0-37.0) g/dL RDW 15.8 H (11.5-15.5) % Plt Count 385 (150-450) k/uL Neutrophils % 89 % Lymphocytes % 8 % Monocytes % 3 % Eosinophils % 0 % Basophils % 0 % Neutrophils # 10.7 H (1.3-7.7) k/uL Lymphocytes # 1.0 (1.0-4.8) k/uL Monocytes # 0.3 (0-1.0) k/uL Eosinophils # 0.1 (0-0.7) k/uL Basophils # 0.0 (0-0.2) k/uL Sodium 141 (137-145) mmol/L Potassium 4.4 (3.5-5.1) mmol/L Chloride 101 (98-107) mmol/L Carbon Dioxide 24 (22-30) mmol/L Anion Gap 16 mmol/L BUN 12 (9-20) mg/dL Creatinine 0.89 (0.66-1.25) mg/dL Est GFR (CKD-EPI)AfAm >90 (>60 ml/min/1.73 sqM) Est GFR (CKD-EPI)NonAf >90 (>60 ml/min/1.73 sqM) Glucose 133 H (74-99) mg/dL Calcium 11.2 H (8.4-10.2) mg/dL Total Bilirubin 1.8 H (0.2-1.3) mg/dL AST 22 (17-59) U/L ALT 35 (21-72) U/L Alkaline Phosphatase 82 (38-126) U/L Total Protein 8.9 H (6.3-8.2) g/dL Albumin 5.5 H (3.5-5.0) g/dL Amylase 47 (30-110) U/L Lipase 53 (23-300) U/L Disposition Clinical Impression: Leukocytosis, Cyclic vomiting syndrome, Nausea and vomiting Disposition: HOME SELF-CARE Condition: Fair Instructions (If sedation given, give patient instructions): Acute Nausea and Vomiting (ED) Prescriptions: Ondansetron Odt [Zofran Odt] 4 mg PO Q8HR PRN #10 tab PRN Reason: Vomiting Is patient prescribed a controlled substance at d/c from ED?: No Referrals: Sher Lewis MD [Primary Care Provider] - 1-2 days Time of Disposition: 20:10
[2018-05-13 18:28] LABS: Basophils % (A) 0 %; Eosinophils # (A) 0.1 k/uL (0-0.7); Eosinophils % (A) 0 %; HCT 48.7 % (39.0-53.0); HGB 17.2 gm/dL (13.0-17.5); Lymphocytes % (A) 8 %; MCH 29.2 pg (25.0-35.0); MCHC 35.3 g/dL (31.0-37.0); MCV 82.5 fL (80.0-100.0); Mean Platelet Volume 10.2; Monocytes # (A) 0.3 k/uL (0-1.0); Monocytes % (A) 3 %; Neutrophils # (A) 10.7 k/uL (1.3-7.7); Neutrophils % (A) 89 %; Platelet Count 385 k/uL (150-450); RBC 5.91 m/uL (4.30-5.90); RDW 15.8 % (11.5-15.5); WBC 12.1 k/uL (3.8-10.6)
[2018-05-13 18:38] LABS: ALT 35 U/L (21-72); AST 22 U/L (17-59); Albumin 5.5 g/dL (3.5-5.0); Alkaline Phosphatase 82 U/L (38-126); Amylase 47 U/L (30-110); Anion Gap 16 mmol/L; Blood Urea Nitrogen 12 mg/dL (9-20); Calcium 11.2 mg/dL (8.4-10.2); Carbon Dioxide 24 mmol/L (22-30); Chloride 101 mmol/L (98-107); Glucose 133 mg/dL (74-99); Lipase 53 U/L (23-300); Potassium 4.4 mmol/L (3.5-5.1); Sodium 141 mmol/L (137-145); Total Bilirubin 1.8 mg/dL (0.2-1.3); Total Protein 8.9 g/dL (6.3-8.2)
[2018-05-13] MEDS ORDERED: HYDROmorphone 1 MG/ML 1 ML SYRINGE IVP STA ×2 (18:43→20:08)
[2018-05-13 19:15] VITALS: PULSE 80; TEMP 99
[2018-05-13 20:09] VITALS: BP 120/79; RESP 20
== END 2018-05-13 20:28 | disposition home or self-care (01) ==
LOC: EC 17:30
DX: G43.A0 Cyclical vomiting, in migraine, not intractable (principal); D72.829 Elevated white blood cell count, unspecified; F12.90 Cannabis use, unspecified, uncomplicated; F41.9 Anxiety disorder, unspecified; Z87.891 Personal history of nicotine dependence; Z79.899 Other long term (current) drug therapy; Z87.19 Personal history of other diseases of the digestive system; Z90.49 Acquired absence of other specified parts of digestive tract
CPT/HCPCS: 36415; 80053; 82150; 83690; 85025; 99284; 96374; 96375 ×3; 96376; 96361 ×2; J1200; J2405; J1885; J1170

== ENCOUNTER 2018-06-05 09:38 | Emergency (ER) | payer OTHER ==
[2018-06-05 09:44] VITALS: RESP 18; TEMP 98.8
[2018-06-05] MEDS ORDERED: SODIUM CHLORIDE 0.9% 2,000 ML IV STA (09:51)
[2018-06-05] MEDS ORDERED: ONDANSETRON 4 MG/2 ML VIAL IVP STA ×3 (09:51→11:59)
[2018-06-05] MEDS ORDERED: LORazepam 2 MG/ML INJ IV STA (09:51)
[2018-06-05] MEDS ORDERED: PROMETHAZINE INJ 25 MG in SODIUM CHLORIDE 0.9% 50 ML IVPB STA (09:52)
[2018-06-05] MEDS ORDERED: diphenhydrAMINE 50 MG/ML 1 ML VIAL IVP STA (09:52)
[2018-06-05] MEDS ORDERED: FAMOTIDINE 20 MG/2 ML VIAL IV STA (09:54)
[2018-06-05] MEDS ORDERED: KETOROLAC 30 MG/ML 1 ML VIAL IVP STA (09:56)
--- NOTE | 2018-06-05 09:57 | ED ---
Abdominal Pain HPI - General Chief Complaint: Abdominal Pain Stated Complaint: abd pain Time Seen by Provider: 06/05/18 09:47 Source: patient, RN notes reviewed Mode of arrival: wheelchair Limitations: no limitations - History of Present Illness Initial Comments: This a 33-year-old male presents emergency Department with chief complaint of nausea vomiting. Patient has a history of cyclic vomiting syndrome. Patient states that he has been well for a while but states symptoms started to morning. He does complain of pain but he normally takes chronic pain meds unable take his at this time. Patient denies any fevers or chills. He states symptoms exactly same as usual. Patient denies any medication changes no recent surgeries. - Related Data Home Medications Medication Instructions Recorded Confirmed LORazepam [Ativan] 1 mg PO QID PRN 09/28/17 06/05/18 Propranolol [Inderal] 20 mg PO BID 09/28/17 06/05/18 Escitalopram [Lexapro] 10 mg PO DAILY 01/26/18 06/05/18 Hydrocodone/Acetaminophen [[place] 1 tab PO Q6HR PRN 01/26/18 06/05/18 7.5-325] Previous Rx's Medication Instructions Recorded Amitriptyline HCl 50 mg PO HS #7 tab 12/16/17 Ondansetron Odt [Zofran Odt] 4 mg PO Q8HR PRN #10 tab 05/13/18 Allergies Allergy/AdvReac Type Severity Reaction Status Date / Time No Known Allergies Allergy Verified 06/05/18 10:23 Review of Systems ROS Statement: Those systems with pertinent positive or pertinent negative responses have been documented in the HPI. ROS Other: All systems not noted in ROS Statement are negative. Past Medical History Past Medical History: Asthma, GERD/Reflux Additional Past Medical History / Comment(s): cyclic vomiting syndrome, back pain '"RUPTURE DISC" History of Any Multi-Drug Resistant Organisms: None Reported Past Surgical History: Adenoidectomy, Appendectomy, Cholecystectomy Additional Past Surgical History / Comment(s): EGD Past Anesthesia/Blood Transfusion Reactions: No Reported Reaction Past Psychological History: Anxiety Smoking Status: Former smoker Past Alcohol Use History: None Reported Past Drug Use History: Marijuana - Past Family History Father Family Medical History: No Reported History Mother Family Medical History: Diabetes Mellitus Additional Family Medical History / Comment(s): severe food allergies General Exam Limitations: no limitations General appearance: alert, in no apparent distress Head exam: Present: atraumatic, normocephalic, normal inspection Eye exam: Present: normal appearance, PERRL, EOMI. Absent: scleral icterus, conjunctival injection, periorbital swelling ENT exam: Present: normal exam, normal oropharynx, mucous membranes moist, TM's normal bilaterally Neck exam: Present: normal inspection, full ROM. Absent: tenderness, meningis mus, lymphadenopathy Respiratory exam: Present: normal lung sounds bilaterally. Absent: respiratory distress, wheezes, rales, rhonchi, stridor Cardiovascular Exam: Present: regular rate, normal rhythm, normal heart sounds. Absent: systolic murmur, diastolic murmur, rubs, gallop, clicks GI/Abdominal exam: Present: soft, tenderness, normal bowel sounds. Absent: distended, guarding, rebound, rigid Skin exam: Present: warm, dry, intact, normal color. Absent: rash Course Vital Signs 06/05/18 06/05/18 09:39 10:17 Temperature 98.8 F Pulse Rate 102 H Respiratory 18 Rate Blood Pressure 137/72 O2 Sat by Pulse 99 Oximetry Medical Decision Making - Medical Decision Making 33-year-old male presents to emergency from for nausea vomiting. Patient has history of cyclic vomiting syndrome. Patient has no signs of dehydration. Patient has had no recurrent emesis. Patient will be discharged. Return parameters were discussed. - Lab Data Result diagrams: 06/05/18 09:58 06/05/18 09:58 Lab Results 06/05/18 06/05/18 06/05/18 Range/Units 09:58 09:58 11:32 WBC 10.1 (3.8-10.6) k/uL RBC 5.49 (4.30-5.90) m/uL Hgb 16.2 (13.0-17.5) gm/dL Hct 47.7 (39.0-53.0) % MCV 86.9 (80.0-100.0) fL MCH 29.6 (25.0-35.0) pg MCHC 34.0 (31.0-37.0) g/dL RDW 12.8 (11.5-15.5) % Plt Count 403 (150-450) k/uL Neutrophils % 74 % Lymphocytes % 19 % Monocytes % 4 % Eosinophils % 2 % Basophils % 1 % Neutrophils # 7.4 (1.3-7.7) k/uL Lymphocytes # 1.9 (1.0-4.8) k/uL Monocytes # 0.4 (0-1.0) k/uL Eosinophils # 0.2 (0-0.7) k/uL Basophils # 0.1 (0-0.2) k/uL Sodium 143 (137-145) mmol/L Potassium 4.4 (3.5-5.1) mmol/L Chloride 107 (98-107) mmol/L Carbon Dioxide 25 (22-30) mmol/L Anion Gap 11 mmol/L BUN 12 (9-20) mg/dL Creatinine 0.82 (0.66-1.25) mg/dL Est GFR (CKD-EPI)AfAm >90 (>60 ml/min/1.73 sqM) Est GFR (CKD-EPI)NonAf >90 (>60 ml/min/1.73 sqM) Glucose 105 H (74-99) mg/dL Calcium 11.1 H (8.4-10.2) mg/dL Total Bilirubin 1.2 (0.2-1.3) mg/dL AST 21 (17-59) U/L ALT 44 (21-72) U/L Alkaline Phosphatase 73 (38-126) U/L Total Protein 8.4 H (6.3-8.2) g/dL Albumin 5.3 H (3.5-5.0) g/dL Lipase 104 (23-300) U/L Urine Color Yellow Urine Appearance Clear (Clear) Urine pH 7.5 (5.0-8.0) Ur Specific [place] 1.034 (1.001-1.035) Urine Protein 1+ H (Negative) Urine Glucose (UA) Negative (Negative) Urine Ketones Trace H (Negative) Urine Blood Negative (Negative) Urine Nitrite Negative (Negative) Urine Bilirubin Negative (Negative) Urine Urobilinogen <2.0 (<2.0) mg/dL Ur Leukocyte Esterase Negative (Negative) Urine WBC 1 (0-5) /hpf Urine Mucus Few H (None) /hpf Disposition Clinical Impression: Nausea and vomiting, Cyclic vomiting syndrome Disposition: HOME SELF-CARE Condition: Stable Instructions (If sedation given, give patient instructions): Acute Nausea and Vomiting (ED) Additional Instructions: Please return to the Emergency Department if symptoms worsen or any other concerns. Is patient prescribed a controlled substance at d/c from ED?: No Referrals: Sher Lewis MD [Primary Care Provider] - 1-2 days Time of Disposition: 12:00
[2018-06-05 10:28] LABS: Basophils # (A) 0.1 k/uL (0-0.2); Basophils % (A) 1 %; Eosinophils # (A) 0.2 k/uL (0-0.7); Eosinophils % (A) 2 %; HCT 47.7 % (39.0-53.0); HGB 16.2 gm/dL (13.0-17.5); Lymphocytes # (A) 1.9 k/uL (1.0-4.8); Lymphocytes % (A) 19 %; MCH 29.6 pg (25.0-35.0); MCV 86.9 fL (80.0-100.0); Mean Platelet Volume 7.2; Monocytes # (A) 0.4 k/uL (0-1.0); Monocytes % (A) 4 %; Neutrophils # (A) 7.4 k/uL (1.3-7.7); Neutrophils % (A) 74 %; Platelet Count 403 k/uL (150-450); RBC 5.49 m/uL (4.30-5.90); RDW 12.8 % (11.5-15.5); WBC 10.1 k/uL (3.8-10.6)
[2018-06-05 10:39] LABS: ALT 44 U/L (21-72); AST 21 U/L (17-59); Albumin 5.3 g/dL (3.5-5.0); Alkaline Phosphatase 73 U/L (38-126); Anion Gap 11 mmol/L; Blood Urea Nitrogen 12 mg/dL (9-20); Calcium 11.1 mg/dL (8.4-10.2); Carbon Dioxide 25 mmol/L (22-30); Chloride 107 mmol/L (98-107); Glucose 105 mg/dL (74-99); Lipase 104 U/L (23-300); Potassium 4.4 mmol/L (3.5-5.1); Sodium 143 mmol/L (137-145); Total Bilirubin 1.2 mg/dL (0.2-1.3); Total Protein 8.4 g/dL (6.3-8.2)
[2018-06-05] MEDS ORDERED: HYDROmorphone 1 MG/ML 1 ML SYRINGE IVP STA (11:15)
[2018-06-05 11:52] LABS: Appearance,Urine Clear (Clear); Bilirubin,Urine Negative (Negative); Blood,Urine Negative (Negative); Color,Urine Yellow; Glucose,Urine (UA) Negative (Negative); Ketones,Urine Trace (Negative); Leukocyte Esterase,Urine Negative (Negative); Mucus,Urine Few /hpf; Nitrite,Urine Negative (Negative); PH, Urine 7.5 (5.0-8.0); Protein,Urine 1+ (Negative); Specific Gravity,Urine 1.034 (1.001-1.035); Urobilinogen,Urine <2.0 mg/dL (<2.0); WBC,Urine 1 /hpf (0-5)
[2018-06-05] MEDS ORDERED: HYDROmorphone 0.5 MG/0.5 ML SYRINGE IVP STA (11:59)
[2018-06-05 12:54] VITALS: BP 136/91; PULSE 86
== END 2018-06-05 13:10 | disposition home or self-care (01) ==
LOC: EC 09:38
DX: G43.A0 Cyclical vomiting, in migraine, not intractable (principal); R10.9 Unspecified abdominal pain; F41.9 Anxiety disorder, unspecified; Z87.891 Personal history of nicotine dependence; Z90.49 Acquired absence of other specified parts of digestive tract; Z98.890 Other specified postprocedural states; Z79.899 Other long term (current) drug therapy
CPT/HCPCS: 36415; 80053; 83690; 85025; 81001; 99284; 96374; 96375 ×6; 96376 ×2; 96361 ×2; J2060; J1200; J2550; J2405; J1885; J1170 ×2

== ENCOUNTER 2018-06-05 16:39 | Emergency (ER) | payer OTHER ==
[2018-06-05] MEDS ORDERED: ONDANSETRON 4 MG/2 ML VIAL IVP STA ×2 (17:15→19:22)
[2018-06-05] MEDS ORDERED: HYDROmorphone 1 MG/ML 1 ML SYRINGE IVP STA (17:15)
[2018-06-05] MEDS ORDERED: SODIUM CHLORIDE 0.9% 1,000 ML IV STA (17:15)
[2018-06-05] MEDS ORDERED: LORazepam 1 MG TAB PO STA (17:16)
--- NOTE | 2018-06-05 17:22 | ED ---
General Adult HPI - General Chief complaint: Nausea/Vomiting/Diarrhea Stated complaint: Abd pain Time Seen by Provider: 06/05/18 16:52 Source: patient, RN notes reviewed, old records reviewed Mode of arrival: ambulatory Limitations: no limitations - History of Present Illness Initial comments: 3-year-old male patient has a history of cyclic vomiting syndrome presents to ED for abdominal pain, nausea and vomiting. Patient is identical to symptoms he has experienced in the past. Patient was seen earlier this facility for the same symptoms. Patient states that he felt improved, however approximately one hour prior to presentation to ER nausea vomiting abdominal pain returned. Patient denies any new or concerning symptoms to him personally. Patient denies any chest pain shortness of breath diarrhea. Patient denies any fevers or chills. Patient denies any headache changes in vision. Systemic: Pt denies fatigue, myalgia, fever/chills, rash. Pt denies weakness, night sweats, weight loss. Neuro: Pt denies headache, visual disturbances, syncope or pre-syncope. HEENT: Pt denies ocular discharge or irritation, otalgia, rhinorrhea, pharyngitis or notable lymphadenopathy. Cardiopulmonary: Pt denies chest pain, SOB, heart palpitations, dyspnea on exertion. Abdominal/GI: Pt denies abdominal pain, n/v/d. : Pt denies dysuria, burning w/ urination, frequency/urgency. Denies new onset urinary or bowel incontinence. MSK: Pt denies myalgia, loss of strength or function in extremities. Neuro: Pt denies new onset weakness, paresthesias. - Related Data Home Medications Medication Instructions Recorded Confirmed LORazepam [Ativan] 1 mg PO QID PRN 09/28/17 06/05/18 Propranolol [Inderal] 20 mg PO BID 09/28/17 06/05/18 Escitalopram [Lexapro] 10 mg PO DAILY 01/26/18 06/05/18 Hydrocodone/Acetaminophen [[place] 1 tab PO Q6HR PRN 01/26/18 06/05/18 7.5-325] Previous Rx's Medication Instructions Recorded Amitriptyline HCl 50 mg PO HS #7 tab 12/16/17 Ondansetron Odt [Zofran Odt] 4 mg PO Q8HR PRN #10 tab 05/13/18 Allergies Allergy/AdvReac Type Severity Reaction Status Date / Time No Known Allergies Allergy Verified 06/05/18 16:53 Review of Systems ROS Statement: Those systems with pertinent positive or pertinent negative responses have been documented in the HPI. ROS Other: All systems not noted in ROS Statement are negative. Past Medical History Past Medical History: Asthma, GERD/Reflux Additional Past Medical History / Comment(s): cyclic vomiting syndrome, back pain '"RUPTURE DISC" History of Any Multi-Drug Resistant Organisms: None Reported Past Surgical History: Adenoidectomy, Appendectomy, Cholecystectomy Additional Past Surgical History / Comment(s): EGD Past Anesthesia/Blood Transfusion Reactions: No Reported Reaction Past Psychological History: Anxiety Smoking Status: Former smoker Past Alcohol Use History: None Reported Past Drug Use History: Marijuana - Past Family History Father Family Medical History: No Reported History Mother Family Medical History: Diabetes Mellitus Additional Family Medical History / Comment(s): severe food allergies General Exam - General Exam Comments Initial Comments: Constitutional: NAD, AOX3, Pt has pleasant affect. HEENT: NC/AT, trachea midline, neck supple, no lymphadenopathy. Posterior pharynx non erythematous, without exudates. External ears appear normal, without discharge. Mucous membranes moist. Eyes PERRLA, EOM intact. There is no scleral icterus. No pallor noted. Cardiopulmonary: RRR, no murmurs, rubs or gallops, no JVD noted. Lungs CTAB in anterior and posterior montaño. No peripheral edema. Abdominal exam: Abdomen soft and non-distended. Abdomen mildly tender to palpation in all quadrants. No focal areas of tenderness. Repeat physical exam abdomen nontender to palpation. No guarding or rigidity no ecchymoses.. Bowel sounds active in LLQ. No hepatosplenomegaly. No ecchymosis Neuro: CN II-XII grossly intact. No nuchal rigidity. MSK: No posterior calf tenderness bilaterally, homans sign negative bilaterally. Posterior tibialis and radial pulse +2 bilaterally. Sensation intact in upper and lower extremities. Full active ROM in upper and lower extremities, 5/5 stregnth. Limitations: no limitations Course Vital Signs 06/05/18 16:42 Temperature 98.2 F Pulse Rate 69 Respiratory 18 Rate Blood Pressure 128/96 O2 Sat by Pulse 99 Oximetry Medical Decision Making - Medical Decision Making 3-year-old male patient has a history of cyclic vomiting syndrome presents to ED for abdominal pain, nausea and vomiting. Patient is identical to symptoms he has experienced in the past. Patient was seen earlier this facility for the same symptoms. Patient states that he felt improved, however approximately one hour prior to presentation to ER nausea vomiting abdominal pain returned. Patient denies any new or concerning symptoms to him personally. Patient denies any chest pain shortness of breath diarrhea. Patient denies any fevers or chills. Patient denies any headache changes in vision. Pt VSS, afebrile. Physical exam displayed: Abdomen soft and non-distended. Abdomen mildly tender to palpation in all quadrants. No focal areas of tenderness. Repeat physical exam abdomen nontender to palpation. No guarding or rigidity no ecchymoses. KUB did not display any acute process. Patient currently asymptomatic. Patient discharged. Patient follow up with primary care provider tomorrow. Patient return to ER patient worsens in any way. Case discussed with Dr. Florian. Disposition Clinical Impression: Nausea & vomiting Disposition: HOME SELF-CARE Condition: Stable Instructions (If sedation given, give patient instructions): Acute Nausea and Vomiting (ED) Additional Instructions: Patient to adhere to previously discussed treatment plan and will take medication(s) as directed. Patient to follow up with PCP in 1-2 days. Patient to return to ED if symptoms do not improve. Return to ER if condition worsens. Is patient prescribed a controlled substance at d/c from ED?: No Referrals: Sher Lewis MD [Primary Care Provider] - 1-2 days
[2018-06-05] MEDS ORDERED: LORazepam 2 MG/ML INJ IV STA (17:31)
--- NOTE | 2018-06-05 18:01 | XR ---
EXAMINATION TYPE: XR KUB, 2 views DATE OF EXAM: 06/05/2018 COMPARISON: 03/14/2018 HISTORY: Pain and vomiting TECHNIQUE: 2 upright views FINDINGS: Visualized lung bases and pleural spaces are negative. No pneumoperitoneum or pneumatosis. Bowel gas pattern is unremarkable. No acute skeletal or soft tissue findings are evident. IMPRESSION: No acute radiographic process.
[2018-06-05] MEDS ORDERED: HYDROmorphone 0.5 MG/0.5 ML SYRINGE IVP STA (19:22)
[2018-06-05] MEDS ORDERED: METOCLOPRAMIDE 5 MG/ML 2 ML VIAL IVP STA (19:24)
[2018-06-05 19:44] VITALS: BP 146/98; PULSE 83; RESP 16; TEMP 97.7
== END 2018-06-05 19:40 | disposition home or self-care (01) ==
LOC: EC 16:39
DX: R11.2 Nausea with vomiting, unspecified (principal); R10.9 Unspecified abdominal pain; R19.7 Diarrhea, unspecified; F41.9 Anxiety disorder, unspecified; Z90.49 Acquired absence of other specified parts of digestive tract; Z87.891 Personal history of nicotine dependence; Z79.899 Other long term (current) drug therapy; Z53.8 Procedure and treatment not carried out for other reasons
CPT/HCPCS: 74018; 96361; 96374; 96375; 96376; 99284

== ENCOUNTER 2018-06-10 06:06 | Emergency (ER) | payer OTHER ==
--- NOTE | 2018-06-10 06:20 | ED ---
Abdominal Pain HPI - General Chief Complaint: Abdominal Pain Stated Complaint: Abdominal Pain Time Seen by Provider: 06/10/18 06:20 Source: patient Mode of arrival: ambulatory Limitations: no limitations - History of Present Illness Initial Comments: Alvino a 33-year-old gentleman with a history of cyclic vomiting syndrome who presents to the emergency department today for evaluation of epigastric abdominal pain and vomiting. Patient reports this began last night he's been unable to tolerate any of his medications. Previous episodes of cyclic vomi ting. Patient states that IV medications and pain medications are the only thing that will make him better. Patient reports followed with his primary care physician for his cyclic vomiting. He is prescribed amitriptyline as well as narcotic pain medication and Zofran. Patient reports that due to vomiting or 90s not been able tolerate any of his medications. Patient has not followed up with gastroenterology. Patient does still smoke marijuana on a daily basis though he reports he's been trying to cut back because he knows it contributes to his symptoms. - Related Data Home Medications Medication Instructions Recorded Confirmed LORazepam [Ativan] 1 mg PO QID PRN 09/28/17 06/10/18 Propranolol [Inderal] 20 mg PO BID 09/28/17 06/10/18 Escitalopram [Lexapro] 10 mg PO DAILY 01/26/18 06/10/18 Hydrocodone/Acetaminophen [[place] 1 tab PO Q6HR PRN 01/26/18 06/10/18 7.5-325] Previous Rx's Medication Instructions Recorded Amitriptyline HCl 50 mg PO HS #7 tab 12/16/17 Ondansetron Odt [Zofran Odt] 4 mg PO Q8HR PRN #10 tab 05/13/18 Allergies Allergy/AdvReac Type Severity Reaction Status Date / Time No Known Allergies Allergy Verified 06/05/18 16:53 Review of Systems ROS Statement: Those systems with pertinent positive or pertinent negative responses have been documented in the HPI. ROS Other: All systems not noted in ROS Statement are negative. Past Medical History Past Medical History: Asthma, GERD/Reflux Additional Past Medical History / Comment(s): cyclic vomiting syndrome, back pain '"RUPTURE DISC" History of Any Multi-Drug Resistant Organisms: None Reported Past Surgical History: Adenoidectomy, Appendectomy, Cholecystectomy Additional Past Surgical History / Comment(s): EGD Past Anesthesia/Blood Transfusion Reactions: No Reported Reaction Past Psychological History: Anxiety Smoking Status: Former smoker Past Alcohol Use History: None Reported Past Drug Use History: Marijuana - Past Family History Father Family Medical History: No Reported History Mother Family Medical History: Diabetes Mellitus Additional Family Medical History / Comment(s): severe food allergies General Exam - General Exam Comments Initial Comments: Physical Exam GENERAL: Patient is well-developed and well-nourished. Patient is nontoxic and well- hydrated and is in no distress. HENT: Normocephalic, Atraumatic. EYES: PERRL, EOMI PULMONARY: Unlabored respirations. No audible rales rhonchi or wheezing was noted. CARDIOVASCULAR: There is a regular rate and rhythm without any murmurs gallops or rubs. ABDOMEN: Soft and nontender with normal bowel sounds. SKIN: Skin is clear with no lesions or rashes and otherwise unremarkable. : Deferred NEUROLOGIC: Patient is alert and oriented x3. Moving all extremities spontaneously MUSCULOSKELETAL: Normal extremities with adequate strength and full range of motion. No lower extremity swelling or edema. No calf tenderness. PSYCHIATRIC: Normal psychiatric evaluation. Limitations: no limitations Limitations: no limitations Course Vital Signs 06/10/18 06:10 Temperature 98.2 F Pulse Rate 77 Respiratory 20 Rate Blood Pressure 168/92 O2 Sat by Pulse 97 Oximetry Medical Decision Making - Medical Decision Making She was seen and evaluated history is obtained from the patient and review of medical record This is a 33-year-old gentleman well-known to the emergency department for frequent exacerbations of cyclic vomiting syndrome. Patient requesting narcotic pain medication, advised patient will treat his nausea with medications and he can have his by mouth pain medications when he is able tolerate by mouth intake. Labs were patient's baseline Patient was reevaluated he's been in the emergency department for 90 minutes with no vomiting, he will receive one by mouth [place] which is his home medication. This time patient will be discharged home to manage his cyclic vomiting syndrome with home medications. - Lab Data Result diagrams: 06/10/18 06:20 06/10/18 06:20 Lab Results 06/10/18 06/10/18 Range/Units 06:20 06:20 WBC 12.9 H (3.8-10.6) k/uL RBC 5.24 (4.30-5.90) m/uL Hgb 15.4 (13.0-17.5) gm/dL Hct 45.4 (39.0-53.0) % MCV 86.6 (80.0-100.0) fL MCH 29.5 (25.0-35.0) pg MCHC 34.0 (31.0-37.0) g/dL RDW 12.9 (11.5-15.5) % Plt Count 424 (150-450) k/uL Neutrophils % 85 % Lymphocytes % 12 % Monocytes % 2 % Eosinophils % 0 % Basophils % 0 % Neutrophils # 10.9 H (1.3-7.7) k/uL Lymphocytes # 1.5 (1.0-4.8) k/uL Monocytes # 0.3 (0-1.0) k/uL Eosinophils # 0.0 (0-0.7) k/uL Basophils # 0.0 (0-0.2) k/uL Sodium 142 (137-145) mmol/L Potassium 4.2 (3.5-5.1) mmol/L Chloride 100 (98-107) mmol/L Carbon Dioxide 30 (22-30) mmol/L Anion Gap 12 mmol/L BUN 11 (9-20) mg/dL Creatinine 0.78 (0.66-1.25) mg/dL Est GFR (CKD-EPI)AfAm >90 (>60 ml/min/1.73 sqM) Est GFR (CKD-EPI)NonAf >90 (>60 ml/min/1.73 sqM) Glucose 124 H (74-99) mg/dL Calcium 11.0 H (8.4-10.2) mg/dL Total Bilirubin 1.5 H (0.2-1.3) mg/dL AST 20 (17-59) U/L ALT 44 (21-72) U/L Alkaline Phosphatase 71 (38-126) U/L Total Protein 8.6 H (6.3-8.2) g/dL Albumin 5.4 H (3.5-5.0) g/dL Lipase 66 (23-300) U/L Disposition Clinical Impression: Cyclic vomiting syndrome Disposition: HOME SELF-CARE Condition: Stable Instructions (If sedation given, give patient instructions): Cyclic Vomiting Syndrome (ED) Is patient prescribed a controlled substance at d/c from ED?: No Referrals: Sher Lewis MD [Primary Care Provider] - 1-2 days
[2018-06-10] MEDS ORDERED: FAMOTIDINE 20 MG/2 ML VIAL IV STA (06:39)
[2018-06-10] MEDS ORDERED: diphenhydrAMINE 50 MG/ML 1 ML VIAL IVP STA (06:39)
[2018-06-10] MEDS ORDERED: METOCLOPRAMIDE 5 MG/ML 2 ML VIAL IVP STA (06:39)
[2018-06-10] MEDS ORDERED: SODIUM CHLORIDE 0.9% 1,000 ML IV STA (06:39)
[2018-06-10] MEDS ORDERED: HYDROcodone/APAP 7.5-325MG 1 EACH TAB PO PRN (06:40)
[2018-06-10 07:06] LABS: Basophils % (A) 0 %; Eosinophils % (A) 0 %; HCT 45.4 % (39.0-53.0); HGB 15.4 gm/dL (13.0-17.5); Lymphocytes # (A) 1.5 k/uL (1.0-4.8); Lymphocytes % (A) 12 %; MCH 29.5 pg (25.0-35.0); MCV 86.6 fL (80.0-100.0); Monocytes # (A) 0.3 k/uL (0-1.0); Monocytes % (A) 2 %; Neutrophils # (A) 10.9 k/uL (1.3-7.7); Neutrophils % (A) 85 %; Platelet Count 424 k/uL (150-450); RBC 5.24 m/uL (4.30-5.90); RDW 12.9 % (11.5-15.5); WBC 12.9 k/uL (3.8-10.6)
[2018-06-10 07:17] LABS: ALT 44 U/L (21-72); AST 20 U/L (17-59); Albumin 5.4 g/dL (3.5-5.0); Alkaline Phosphatase 71 U/L (38-126); Anion Gap 12 mmol/L; Blood Urea Nitrogen 11 mg/dL (9-20); Carbon Dioxide 30 mmol/L (22-30); Chloride 100 mmol/L (98-107); Glucose 124 mg/dL (74-99); Lipase 66 U/L (23-300); Potassium 4.2 mmol/L (3.5-5.1); Sodium 142 mmol/L (137-145); Total Bilirubin 1.5 mg/dL (0.2-1.3); Total Protein 8.6 g/dL (6.3-8.2)
[2018-06-10 08:02] VITALS: BP 128/71; PULSE 86; RESP 18; TEMP 98.3
== END 2018-06-10 08:03 | disposition home or self-care (01) ==
LOC: EC 06:06
DX: G43.A0 Cyclical vomiting, in migraine, not intractable (principal); F41.9 Anxiety disorder, unspecified; Z87.891 Personal history of nicotine dependence; Z79.899 Other long term (current) drug therapy; Z90.49 Acquired absence of other specified parts of digestive tract
CPT/HCPCS: 36415; 80053; 83690; 85025; 99284; 96374; 96375 ×2; 96361; J1200; J2765

== ENCOUNTER 2018-07-10 03:56 | Emergency (ER) | payer OTHER ==
[2018-07-10 04:32] LABS: Basophils # (A) 0.1 k/uL (0-0.2); Basophils % (A) 0 %; Eosinophils # (A) 0.2 k/uL (0-0.7); Eosinophils % (A) 1 %; HCT 49.4 % (39.0-53.0); HGB 16.4 gm/dL (13.0-17.5); Lymphocytes # (A) 2.1 k/uL (1.0-4.8); Lymphocytes % (A) 13 %; MCH 28.5 pg (25.0-35.0); MCHC 33.1 g/dL (31.0-37.0); MCV 86.1 fL (80.0-100.0); Mean Platelet Volume 7.5; Monocytes # (A) 0.4 k/uL (0-1.0); Monocytes % (A) 3 %; Neutrophils # (A) 14.1 k/uL (1.3-7.7); Neutrophils % (A) 83 %; Platelet Count 438 k/uL (150-450); RBC 5.73 m/uL (4.30-5.90); RDW 12.6 % (11.5-15.5); WBC 17.1 k/uL (3.8-10.6)
[2018-07-10] MEDS ORDERED: MORPHINE SULFATE 4 MG/ML SYRINGE IV STA (04:32)
[2018-07-10 04:44] LABS: ALT 47 U/L (21-72); AST 35 U/L (17-59); Albumin 5.4 g/dL (3.5-5.0); Alkaline Phosphatase 71 U/L (38-126); Amylase 81 U/L (30-110); Blood Urea Nitrogen 12 mg/dL (9-20); Calcium 10.9 mg/dL (8.4-10.2); Carbon Dioxide 24 mmol/L (22-30); Glucose 124 mg/dL (74-99); Lipase 100 U/L (23-300); Total Bilirubin 1.3 mg/dL (0.2-1.3); Total Protein 8.6 g/dL (6.3-8.2)
--- NOTE | 2018-07-10 04:48 | ED ---
Nausea/Vomiting/Diarrhea HPI - General Chief complaint: Nausea/Vomiting/Diarrhea Stated complaint: Abd pain,vomiting Time Seen by Provider: 07/10/18 04:32 Source: patient Mode of arrival: ambulatory Limitations: no limitations - History of Present Illness Initial comments: 's patient is a 33-year-old man who presents to be evaluated for abdominal pain as well as nausea and vomiting. The patient states she has history of cyclic vomiting syndrome. He usually is taking hydrocodone and antiemetics at home. Patient relates that 2 days ago he ran out of his hydrocodone. Over the course past day he has had worsening of diffuse, crampy, aching abdominal pain. Is now severe. He is also having multiple rounds of vomiting. He has not noted any blood or coffee-ground type emesis. MD complaint: nausea, vomiting, abdominal pain -: days(s) Description of Vomiting: watery Associated Abdominal Pain: Yes Location: diffuse Severity: severe Quality: cramping Consistency: constant Improves with: none Worsens with: none Associated Symptoms: denies other symptoms - Related Data Home Medications Medication Instructions Recorded Confirmed Hydrocodone/Acetaminophen [[place] 1 tab PO Q6HR PRN 01/26/18 07/10/18 7.5-325] Omeprazole 20 mg PO DAILY 07/10/18 07/10/18 Previous Rx's Medication Instructions Recorded Amitriptyline HCl 50 mg PO HS #7 tab 12/16/17 Ondansetron Odt [Zofran Odt] 4 mg PO Q8HR PRN #10 tab 05/13/18 Allergies Allergy/AdvReac Type Severity Reaction Status Date / Time No Known Allergies Allergy Verified 07/10/18 07:26 Review of Systems ROS Statement: Those systems with pertinent positive or pertinent negative responses have been documented in the HPI. ROS Other: All systems not noted in ROS Statement are negative. Constitutional: Denies: fever, chills Respiratory: Denies: cough, dyspnea Cardiovascular: Denies: chest pain, palpitations, orthopnea, edema, syncope Gastrointestinal: Reports: abdominal pain, nausea, vomiting. Denies: diarrhea, hematemesis, melena, hematochezia Genitourinary: Denies: dysuria, hematuria Musculoskeletal: Denies: back pain Skin: Denies: rash Neurological: Denies: headache, weakness, numbness Past Medical History Past Medical History: Asthma, GERD/Reflux Additional Past Medical History / Comment(s): cyclic vomiting syndrome, back pain '"RUPTURE DISC" History of Any Multi-Drug Resistant Organisms: None Reported Past Surgical History: Adenoidectomy, Appendectomy, Cholecystectomy Additional Past Surgical History / Comment(s): EGD Past Anesthesia/Blood Transfusion Reactions: No Reported Reaction Past Psychological History: Anxiety Smoking Status: Former smoker Past Alcohol Use History: None Reported Past Drug Use History: Marijuana - Past Family History Father Family Medical History: No Reported History Mother Family Medical History: Diabetes Mellitus Additional Family Medical History / Comment(s): severe food allergies General Exam Limitations: no limitations General appearance: alert, in no apparent distress Head exam: Present: atraumatic, normocephalic Eye exam: Present: normal appearance. Absent: scleral icterus, conjunctival i njection ENT exam: Present: normal oropharynx Neck exam: Present: normal inspection Respiratory exam: Present: normal lung sounds bilaterally. Absent: respiratory distress, wheezes, rales, rhonchi, stridor Cardiovascular Exam: Present: regular rate, normal rhythm, normal heart sounds. Absent: systolic murmur, diastolic murmur, rubs, gallop GI/Abdominal exam: Present: soft. Absent: distended, tenderness, guarding, rebound, rigid, mass, pulsatile mass, hernia Extremities exam: Present: normal inspection, normal capillary refill. Absent: pedal edema, calf tenderness Back exam: Present: normal inspection. Absent: CVA tenderness (R), CVA tenderness (L) Neurological exam: Present: alert Skin exam: Present: warm, dry, intact, normal color. Absent: rash Course Vital Signs 07/10/18 07/10/18 04:06 07:00 Temperature 98.2 F Pulse Rate 98 75 Respiratory 20 16 Rate Blood Pressure 155/94 154/102 O2 Sat by Pulse 98 98 Oximetry Medical Decision Making - Lab Data Result diagrams: 07/10/18 04:18 07/10/18 04:18 Lab Results 07/10/18 07/10/18 07/10/18 Range/Units 04:18 04:18 04:54 WBC 17.1 H (3.8-10.6) k/uL RBC 5.73 (4.30-5.90) m/uL Hgb 16.4 (13.0-17.5) gm/dL Hct 49.4 (39.0-53.0) % MCV 86.1 (80.0-100.0) fL MCH 28.5 (25.0-35.0) pg MCHC 33.1 (31.0-37.0) g/dL RDW 12.6 (11.5-15.5) % Plt Count 438 (150-450) k/uL Neutrophils % 83 % Lymphocytes % 13 % Monocytes % 3 % Eosinophils % 1 % Basophils % 0 % Neutrophils # 14.1 H (1.3-7.7) k/uL Lymphocytes # 2.1 (1.0-4.8) k/uL Monocytes # 0.4 (0-1.0) k/uL Eosinophils # 0.2 (0-0.7) k/uL Basophils # 0.1 (0-0.2) k/uL Sodium 143 (137-145) mmol/L Potassium 4.7 (3.5-5.1) mmol/L Chloride 107 (98-107) mmol/L Carbon Dioxide 24 (22-30) mmol/L Anion Gap 12 mmol/L BUN 12 (9-20) mg/dL Creatinine 0.82 (0.66-1.25) mg/dL Est GFR (CKD-EPI)AfAm >90 (>60 ml/min/1.73 sqM) Est GFR (CKD-EPI)NonAf >90 (>60 ml/min/1.73 sqM) Glucose 124 H (74-99) mg/dL Calcium 10.9 H (8.4-10.2) mg/dL Total Bilirubin 1.3 (0.2-1.3) mg/dL AST 35 (17-59) U/L ALT 47 (21-72) U/L Alkaline Phosphatase 71 (38-126) U/L Total Protein 8.6 H (6.3-8.2) g/dL Albumin 5.4 H (3.5-5.0) g/dL Amylase 81 (30-110) U/L Lipase 100 (23-300) U/L Urine Color Yellow Urine Appearance Clear (Clear) Urine pH 6.0 (5.0-8.0) Ur Specific [place] 1.031 (1.001-1.035) Urine Protein 1+ H (Negative) Urine Glucose (UA) Negative (Negative) Urine Ketones 1+ H (Negative) Urine Blood Small H (Negative) Urine Nitrite Negative (Negative) Urine Bilirubin Negative (Negative) Urine Urobilinogen 2.0 (<2.0) mg/dL Ur Leukocyte Esterase Negative (Negative) Urine RBC 10 H (0-5) /hpf Urine WBC 1 (0-5) /hpf Ur Squamous Epith Cells <1 (0-4) /hpf Urine Bacteria Rare H (None) /hpf Hyaline Casts 13 H (0-2) /lpf Urine Mucus Few H (None) /hpf Urine Yeast (Budding) Rare H (None) /hpf Disposition Clinical Impression: Cyclic vomiting syndrome Disposition: HOME SELF-CARE Condition: Fair Instructions (If sedation given, give patient instructions): Acute Nausea and Vomiting (ED) Is patient prescribed a controlled substance at d/c from ED?: No Referrals: Sher Lewis MD [Primary Care Provider] - 1-2 days
[2018-07-10 04:54] LABS: Anion Gap 12 mmol/L; Chloride 107 mmol/L (98-107); Sodium 143 mmol/L (137-145)
[2018-07-10 04:55] LABS: Potassium 4.7 mmol/L (3.5-5.1)
[2018-07-10] MEDS ORDERED: METHADONE 10 MG TAB PO STA (05:33)
[2018-07-10 05:44] LABS: Appearance,Urine Clear (Clear); Bacteria,Urine Rare /hpf; Bilirubin,Urine Negative (Negative); Blood,Urine Small (Negative); Budding Yeast,Urine Rare /hpf; Color,Urine Yellow; Glucose,Urine (UA) Negative (Negative); Hyaline Casts,Urine 13 /lpf (0-2); Ketones,Urine 1+ (Negative); Leukocyte Esterase,Urine Negative (Negative); Mucus,Urine Few /hpf; Nitrite,Urine Negative (Negative); Protein,Urine 1+ (Negative); RBC,Urine 10 /hpf (0-5); Specific Gravity,Urine 1.031 (1.001-1.035); Squamous Epithelial Cell,Urine <1 /hpf (0-4); WBC,Urine 1 /hpf (0-5)
[2018-07-10 07:01] VITALS: RESP 16
[2018-07-10] MEDS ORDERED: HYDROmorphone 0.5 MG/0.5 ML SYRINGE IVP STA (07:56)
[2018-07-10] MEDS ORDERED: ONDANSETRON 4 MG/2 ML VIAL IVP STA (08:16)
--- NOTE | 2018-07-10 08:28 | CT ---
EXAMINATION TYPE: CT abdomen pelvis wo con DATE OF EXAM: 07/10/2018 COMPARISON: 06/05/2018 x-ray abdomen and CT dated 04/12/2016 HISTORY: Abd pain with nausea and vomiting CT DLP: 716.8 mGycm Automated exposure control for dose reduction was used. TECHNIQUE: Helical acquisition of images was performed from the lung bases through the pelvis. FINDINGS: LUNG BASES: No significant abnormality is appreciated. LIVER/GB: Hepatic parenchyma is diffusely hypoattenuated in comparison to that of the spleen, most co mmonly seen in hepatic steatosis. This finding limits evaluation for hepatic masses. No gross evidenc e of hepatic mass is seen. No intrahepatic biliary ductal dilatation. Gallbladder surgically absent. PANCREAS: There is very subtle and questionable peripancreatic fat stranding versus volume averaging such as on image 29 of the ventral pancreas and between the greater CAD and gastric antrum. This also seen surrounding the SMA on image 35.. SPLEEN: No significant abnormality is seen. Small splenule is seen adjacent to the [place] spleen. ADRENALS: No significant abnormality is seen. KIDNEYS: No nephrolithiasis or hydronephrosis. No urinary bladder calculi. FREE AIR: No free air is visualized ADENOPATHY: No greater than 1 cm short axis lymph nodes are seen in the abdomen or pelvis. OSSEOUS STRUCTURES: No significant abnormality is seen. BOWEL: There is distal esophageal wall thickening that is mild measuring up to 8 mm and seen circumfe rentially. There are scattered colonic diverticula without pericolonic fat stranding. The colon is de compressed, limiting evaluation. Appendix appears surgically absent. No dilated large or small bowel. Cluster loops of small bowel in the upper abdomen display slightly prominent size such as within the duodenum with the appearance of small bowel feces sign, likely simply numerous foci of intraluminal air. IMPRESSION: 1. MILD VAGUE POSSIBLE PERIPANCREATIC FAT STRANDING VERSUS VOLUME AVERAGING. CORRELATE WITH SERUM APRIL LASE AND LIPASE TO EXCLUDE MILD ACUTE UNCOMPLICATED PANCREATITIS. ALTERNATIVELY MILD DUODENITIS CAN B E CONSIDERED. 2. HEPATIC STEATOSIS. 3. SUTURES WITHIN THE CECUM INDICATE PRIOR APPENDECTOMY. NO SURROUNDING INFLAMMATORY FAT STRANDING. 4. COLONIC DIVERTICULOSIS WITHOUT EVIDENCE OF ACUTE DIVERTICULITIS. 5. MILD CIRCUMFERENTIAL DISTAL ESOPHAGEAL WALL THICKENING THAT MAY RELATE TO ESOPHAGITIS OR INCOMPLET E DISTENTION.
[2018-07-10 10:08] VITALS: BP 148/98; PULSE 72; TEMP 97.7
== END 2018-07-10 10:08 | disposition home or self-care (01) ==
LOC: EC 03:56
DX: G43.A0 Cyclical vomiting, in migraine, not intractable (principal); K21.9 Gastro-esophageal reflux disease without esophagitis; Z87.891 Personal history of nicotine dependence; Z79.899 Other long term (current) drug therapy; Z90.49 Acquired absence of other specified parts of digestive tract
CPT/HCPCS: 36415; 80053; 82150; 83690; 85025; 81001; 74176; 99284; 96374; 96375 ×2; J2270; J2405; S0109; J1170

== ENCOUNTER 2018-08-12 20:29 | Emergency (ER) | payer OTHER ==
[2018-08-12 20:44] VITALS: RESP 18
[2018-08-12] MEDS ORDERED: PANTOPRAZOLE 40 MG/10 ML VIAL IVP STA (20:45)
[2018-08-12] MEDS ORDERED: SODIUM CHLORIDE 0.9% 1,000 ML IV STA (20:45)
[2018-08-12] MEDS ORDERED: MORPHINE SULFATE 4 MG/ML SYRINGE IV STA (20:45)
[2018-08-12] MEDS ORDERED: ONDANSETRON 4 MG/2 ML VIAL IVP STA (20:45)
--- NOTE | 2018-08-12 20:47 | ED ---
Nausea/Vomiting/Diarrhea HPI - General Chief complaint: Nausea/Vomiting/Diarrhea Stated complaint: Abd pain Time Seen by Provider: 08/12/18 20:45 Source: patient, RN notes reviewed, old records reviewed Mode of arrival: ambulatory Limitations: no limitations - History of Present Illness Initial comments: This is a 33-year-old male the ER for evaluation. Patient does say for evaluation of nausea vomiting. History of psych vomiting syndrome. Patient states symptoms of similar this afternoon and become severe with abdominal pain. Nausea vomiting. Denies recent drug or alcohol abuse. MD complaint: nausea, vomiting, abdominal pain -: hour(s) Description of Vomiting: food contents, watery Description of Diarrhea: water, mucous Associated Abdominal Pain: Yes Location: diffuse Radiation: none Severity: severe Severity scale (1-10): 10 Quality: cramping, aching, constant Consistency: constant Improves with: none Worsens with: none Associated Symptoms: myalgias, loss of appetite, nausea/vomiting, weakness - Related Data Home Medications Medication Instructions Recorded Confirmed Hydrocodone/Acetaminophen [[place] 1 tab PO Q6HR PRN 01/26/18 07/10/18 7.5-325] Omeprazole 20 mg PO DAILY 07/10/18 07/10/18 Previous Rx's Medication Instructions Recorded Amitriptyline HCl 50 mg PO HS #7 tab 12/16/17 Ondansetron Odt [Zofran Odt] 4 mg PO Q8HR PRN #10 tab 05/13/18 Allergies Allergy/AdvReac Type Severity Reaction Status Date / Time No Known Allergies Allergy Verified 08/12/18 20:44 Review of Systems ROS Statement: Those systems with pertinent positive or pertinent negative responses have been documented in the HPI. ROS Other: All systems not noted in ROS Statement are negative. Past Medical History Past Medical History: Asthma, GERD/Reflux Additional Past Medical History / Comment(s): cyclic vomiting syndrome, back pain '"RUPTURE DISC" History of Any Multi-Drug Resistant Organisms: None Reported Past Surgical History: Adenoidectomy, Appendectomy, Cholecystectomy Additional Past Surgical History / Comment(s): EGD Past Anesthesia/Blood Transfusion Reactions: No Reported Reaction Past Psychological History: Anxiety Smoking Status: Former smoker Past Alcohol Use History: None Reported Past Drug Use History: Marijuana - Past Family History Father Family Medical History: No Reported History Mother Family Medical History: Diabetes Mellitus Additional Family Medical History / Comment(s): severe food allergies General Exam Limitations: no limitations General appearance: alert, in no apparent distress Head exam: Present: atraumatic, normocephalic, normal inspection Eye exam: Present: normal appearance, PERRL, EOMI. Absent: scleral icterus, conjunctival injection, periorbital swelling ENT exam: Present: normal exam, mucous membranes moist Neck exam: Present: normal inspection. Absent: tenderness, meningismus, lymphadenopathy Respiratory exam: Present: normal lung sounds bilaterally. Absent: respiratory distress, wheezes, rales, rhonchi, stridor Cardiovascular Exam: Present: regular rate, normal rhythm, normal heart sounds. Absent: systolic murmur, diastolic murmur, rubs, gallop, clicks GI/Abdominal exam: Present: soft, normal bowel sounds. Absent: distended, tenderness, guarding, rebound, rigid Extremities exam: Present: normal inspection, full ROM, normal capillary refill. Absent: tenderness, pedal edema, joint swelling, calf tenderness Back exam: Present: normal inspection Neurological exam: Present: alert, oriented X3, CN II-XII intact Psychiatric exam: Present: normal affect, normal mood Skin exam: Present: warm, dry, intact, normal color. Absent: rash Course Vital Signs 08/12/18 08/12/18 08/12/18 20:42 20:49 23:19 Temperature 99.0 F 98 F Pulse Rate 89 76 Respiratory 18 18 Rate Blood Pressure 134/85 112/85 O2 Sat by Pulse 99 98 Oximetry - Reevaluation(s) Reevaluation #1: 08/12/18 23:22 Neck record is reviewed with multiple ER visits for same Reevaluation #2: 08/12/18 23:22 Symptoms finally resolved. Patient feels good for discharge Medical Decision Making - Medical Decision Making 33 male the ER for evaluation secondary vomiting syndrome and persistent nausea vomiting. Symptoms currently resolved and patient can be discharged home - Lab Data Result diagrams: 08/12/18 21:12 08/12/18 21:12 Lab Results 08/12/18 08/12/18 08/12/18 Range/Units 21:12 21:12 21:12 WBC 15.2 H (3.8-10.6) k/uL RBC 5.70 (4.30-5.90) m/uL Hgb 16.8 (13.0-17.5) gm/dL Hct 47.9 (39.0-53.0) % MCV 84.0 (80.0-100.0) fL MCH 29.4 (25.0-35.0) pg MCHC 35.0 (31.0-37.0) g/dL RDW 14.5 (11.5-15.5) % Plt Count 372 (150-450) k/uL Neutrophils % 76 % Lymphocytes % 18 % Monocytes % 4 % Eosinophils % 1 % Basophils % 0 % Neutrophils # 11.5 H (1.3-7.7) k/uL Lymphocytes # 2.7 (1.0-4.8) k/uL Monocytes # 0.5 (0-1.0) k/uL Eosinophils # 0.2 (0-0.7) k/uL Basophils # 0.1 (0-0.2) k/uL Sodium 143 (137-145) mmol/L Potassium 3.9 (3.5-5.1) mmol/L Chloride 106 (98-107) mmol/L Carbon Dioxide 20 L (22-30) mmol/L Anion Gap 17 mmol/L BUN 15 (9-20) mg/dL Creatinine 0.89 (0.66-1.25) mg/dL Est GFR (CKD-EPI)AfAm >90 (>60 ml/min/1.73 sqM) Est GFR (CKD-EPI)NonAf >90 (>60 ml/min/1.73 sqM) Glucose 108 H (74-99) mg/dL Plasma Lactic Acid [place] 1.8 (0.7-2.0) mmol/L Calcium 11.1 H (8.4-10.2) mg/dL Total Bilirubin 1.6 H (0.2-1.3) mg/dL AST 23 (17-59) U/L ALT 25 (21-72) U/L Alkaline Phosphatase 91 (38-126) U/L Creatine Kinase 69 (55-170) U/L Total Protein 9.0 H (6.3-8.2) g/dL Albumin 5.7 H (3.5-5.0) g/dL Amylase 78 (30-110) U/L Lipase 164 (23-300) U/L Urine Color Urine Appearance (Clear) Urine pH (5.0-8.0) Ur Specific [place] (1.001-1.035) Urine Protein (Negative) Urine Glucose (UA) (Negative) Urine Blood (Negative) Urine Nitrite (Negative) Urine Bilirubin (Negative) Urine Urobilinogen (<2.0) mg/dL Ur Leukocyte Esterase (Negative) Urine RBC (0-5) /hpf Urine WBC (0-5) /hpf Ur Squamous Epith Cells (0-4) /hpf Urine Mucus (None) /hpf 08/12/18 Range/Units 22:33 WBC (3.8-10.6) k/uL RBC (4.30-5.90) m/uL Hgb (13.0-17.5) gm/dL Hct (39.0-53.0) % MCV (80.0-100.0) fL MCH (25.0-35.0) pg MCHC (31.0-37.0) g/dL RDW (11.5-15.5) % Plt Count (150-450) k/uL Neutrophils % % Lymphocytes % % Monocytes % % Eosinophils % % Basophils % % Neutrophils # (1.3-7.7) k/uL Lymphocytes # (1.0-4.8) k/uL Monocytes # (0-1.0) k/uL Eosinophils # (0-0.7) k/uL Basophils # (0-0.2) k/uL Sodium (137-145) mmol/L Potassium (3.5-5.1) mmol/L Chloride (98-107) mmol/L Carbon Dioxide (22-30) mmol/L Anion Gap mmol/L BUN (9-20) mg/dL Creatinine (0.66-1.25) mg/dL Est GFR (CKD-EPI)AfAm (>60 ml/min/1.73 sqM) Est GFR (CKD-EPI)NonAf (>60 ml/min/1.73 sqM) Glucose (74-99) mg/dL Plasma Lactic Acid [place] (0.7-2.0) mmol/L Calcium (8.4-10.2) mg/dL Total Bilirubin (0.2-1.3) mg/dL AST (17-59) U/L ALT (21-72) U/L Alkaline Phosphatase (38-126) U/L Creatine Kinase (55-170) U/L Total Protein (6.3-8.2) g/dL Albumin (3.5-5.0) g/dL Amylase (30-110) U/L Lipase (23-300) U/L Urine Color Yellow Urine Appearance Cloudy (Clear) Urine pH 5.5 (5.0-8.0) Ur Specific [place] 1.035 (1.001-1.035) Urine Protein 1+ H (Negative) Urine Glucose (UA) Negative (Negative) Urine Blood Small H (Negative) Urine Nitrite Negative (Negative) Urine Bilirubin Negative (Negative) Urine Urobilinogen 2.0 (<2.0) mg/dL Ur Leukocyte Esterase Negative (Negative) Urine RBC 2 (0-5) /hpf Urine WBC 3 (0-5) /hpf Ur Squamous Epith Cells <1 (0-4) /hpf Urine Mucus Many H (None) /hpf Disposition Clinical Impression: Intractable nausea and vomiting, Cyclic vomiting syndrome Disposition: HOME SELF-CARE Condition: Good Instructions (If sedation given, give patient instructions): Acute Nausea and Vomiting (ED) Is patient prescribed a controlled substance at d/c from ED?: No Referrals: Sher Lewis MD [Primary Care Provider] - 1-2 days
[2018-08-12 21:31] LABS: Basophils # (A) 0.1 k/uL (0-0.2); Basophils % (A) 0 %; Eosinophils # (A) 0.2 k/uL (0-0.7); Eosinophils % (A) 1 %; HCT 47.9 % (39.0-53.0); HGB 16.8 gm/dL (13.0-17.5); Lymphocytes # (A) 2.7 k/uL (1.0-4.8); Lymphocytes % (A) 18 %; MCH 29.4 pg (25.0-35.0); Mean Platelet Volume 8.3; Monocytes # (A) 0.5 k/uL (0-1.0); Monocytes % (A) 4 %; Neutrophils # (A) 11.5 k/uL (1.3-7.7); Neutrophils % (A) 76 %; Platelet Count 372 k/uL (150-450); RDW 14.5 % (11.5-15.5); WBC 15.2 k/uL (3.8-10.6)
[2018-08-12 21:38] LABS: ALT 25 U/L (21-72); AST 23 U/L (17-59); African American GFR (CKD) >90 (>60 ml/min/1.73 sqM); Albumin 5.7 g/dL (3.5-5.0); Alkaline Phosphatase 91 U/L (38-126); Amylase 78 U/L (30-110); Anion Gap 17 mmol/L; Blood Urea Nitrogen 15 mg/dL (9-20); Calcium 11.1 mg/dL (8.4-10.2); Carbon Dioxide 20 mmol/L (22-30); Chloride 106 mmol/L (98-107); Creatine Kinase 69 U/L (55-170); Glucose 108 mg/dL (74-99); Lipase 164 U/L (23-300); Potassium 3.9 mmol/L (3.5-5.1); Sodium 143 mmol/L (137-145); Total Bilirubin 1.6 mg/dL (0.2-1.3)
[2018-08-12] MEDS ORDERED: HYDROmorphone 0.5 MG/0.5 ML SYRINGE IVP STA (22:10)
[2018-08-12] MEDS ORDERED: METOCLOPRAMIDE 5 MG/ML 2 ML VIAL IVP STA (22:10)
[2018-08-12] MEDS ORDERED: diphenhydrAMINE 50 MG/ML 1 ML VIAL IVP STA (22:10)
[2018-08-12 22:46] LABS: Appearance,Urine Cloudy (Clear); Bilirubin,Urine Negative (Negative); Blood,Urine Small (Negative); Color,Urine Yellow; Glucose,Urine (UA) Negative (Negative); Ketones,Urine 3+ (Negative); Leukocyte Esterase,Urine Negative (Negative); Mucus,Urine Many /hpf; Nitrite,Urine Negative (Negative); PH, Urine 5.5 (5.0-8.0); Protein,Urine 1+ (Negative); RBC,Urine 2 /hpf (0-5); Specific Gravity,Urine 1.035 (1.001-1.035); Squamous Epithelial Cell,Urine <1 /hpf (0-4); WBC,Urine 3 /hpf (0-5)
[2018-08-12 23:20] VITALS: BP 112/85; PULSE 76; TEMP 98
== END 2018-08-12 23:34 | disposition home or self-care (01) ==
LOC: EC 20:29
DX: G43.A1 Cyclical vomiting, in migraine, intractable (principal); K21.9 Gastro-esophageal reflux disease without esophagitis; R53.1 Weakness; Z87.891 Personal history of nicotine dependence; Z79.899 Other long term (current) drug therapy; Z90.49 Acquired absence of other specified parts of digestive tract
CPT/HCPCS: 36415; 80053; 82150; 82550; 83605; 83690; 85025; 81001; 87086; 99284; 96374; 96375 ×5; 96361 ×2; J2270; J1200; J2765; J2405; C9113; J1170

== ENCOUNTER 2018-08-13 04:10 | Observation (INO) | payer OTHER ==
[2018-08-13] MEDS ORDERED: HYDROmorphone 1 MG/ML 1 ML SYRINGE IVP STA (04:34)
[2018-08-13] MEDS ORDERED: diphenhydrAMINE 50 MG/ML 1 ML VIAL IVP STA (04:34)
[2018-08-13] MEDS ORDERED: METOCLOPRAMIDE 5 MG/ML 2 ML VIAL IVP STA (04:34)
--- NOTE | 2018-08-13 04:46 | ED ---
Nausea/Vomiting/Diarrhea HPI - General Chief complaint: Nausea/Vomiting/Diarrhea Stated complaint: Vomiting Source: patient Mode of arrival: ambulatory Limitations: no limitations - History of Present Illness Initial comments: Jesus is a 33yo nail with a history of cyclic vomiting syndrome who was seen and evaluated in the emergency department yesterday afternoon. He returns today with persistent nausea, vomiting and epigastric abdominal pain. Patient reports he felt okay upon discharge returned home and immediately had return of symptoms. The patient has undergone sensitive workup in the past. - Related Data Home Medications Medication Instructions Recorded Confirmed Hydrocodone/Acetaminophen [[place] 1 tab PO Q6HR PRN 01/26/18 07/10/18 7.5-325] Omeprazole 20 mg PO DAILY 07/10/18 07/10/18 Previous Rx's Medication Instructions Recorded Amitriptyline HCl 50 mg PO HS #7 tab 12/16/17 Ondansetron Odt [Zofran Odt] 4 mg PO Q8HR PRN #10 tab 05/13/18 Allergies Allergy/AdvReac Type Severity Reaction Status Date / Time No Known Allergies Allergy Verified 08/12/18 20:44 Review of Systems ROS Statement: Those systems with pertinent positive or pertinent negative responses have been documented in the HPI. ROS Other: All systems not noted in ROS Statement are negative. Past Medical History Past Medical History: Asthma, GERD/Reflux Additional Past Medical History / Comment(s): cyclic vomiting syndrome, back pain '"RUPTURE DISC" History of Any Multi-Drug Resistant Organisms: None Reported Past Surgical History: Adenoidectomy, Appendectomy, Cholecystectomy Additional Past Surgical History / Comment(s): EGD Past Anesthesia/Blood Transfusion Reactions: No Reported Reaction Past Psychological History: Anxiety Smoking Status: Former smoker Past Alcohol Use History: None Reported Past Drug Use History: Marijuana - Past Family History Father Family Medical History: No Reported History Mother Family Medical History: Diabetes Mellitus Additional Family Medical History / Comment(s): severe food allergies General Exam - General Exam Comments Initial Comments: Physical Exam GENERAL: Patient is well-developed and well-nourished. Curled up in position, sweating, heaving HENT: Normocephalic, Atraumatic. EYES: PERRL, EOMI PULMONARY: Unlabored respirations. No audible rales rhonchi or wheezing was noted. CARDIOVASCULAR: RRR ABDOMEN: Soft with normal bowel sounds. Tenderness to palpation epigastrum SKIN: Diaphoresis : Deferred NEUROLOGIC: Patient is alert and oriented x3. Moving all extremities spontaneously MUSCULOSKELETAL: Normal extremities with adequate strength and full range of motion. No lower extremity swelling or edema. No calf tenderness. PSYCHIATRIC: Normal psychiatric evaluation Limitations: no limitations Course Vital Signs 08/13/18 08/13/18 08/13/18 04:11 04:58 06:25 Temperature 98.8 F Pulse Rate 87 86 87 Respiratory 16 16 20 Rate Blood Pressure 123/99 124/86 128/117 O2 Sat by Pulse 98 100 Oximetry 08/13/18 06:53 Temperature Pulse Rate 83 Respiratory 16 Rate Blood Pressure 134/93 O2 Sat by Pulse 99 Oximetry Medical Decision Making - Medical Decision Making Patient was seen and evaluated Repeat labs, fluids and meds ordered Repeat labs improving Patient received Dilaudid, Reglan, Benadryl with improvement in his symptoms for only 30 minutes. He was then noted to be rolling in bed stating that he felt nauseated he knew he was start throwing up again he continues to have epigastric abdominal discomfort. Ativan was ordered, patient reports she's feeling more calm but still has epigastric abdominal discomfort. Patient requesting additional Dilaudid. I advised the patient that at this time he is received 3 doses of Dilaudid in less than 12 hours I don't feel that additional narcotics are treatment. We'll plan to admit the patient for IV fluids anti-emetics and further evaluation. - Lab Data Result diagrams: 08/13/18 04:44 08/13/18 04:44 Lab Results 08/13/18 08/13/18 Range/Units 04:44 04:44 WBC 13.4 H (3.8-10.6) k/uL RBC 5.13 (4.30-5.90) m/uL Hgb 14.9 (13.0-17.5) gm/dL Hct 43.6 (39.0-53.0) % MCV 85.0 (80.0-100.0) fL MCH 29.0 (25.0-35.0) pg MCHC 34.1 (31.0-37.0) g/dL RDW 13.7 (11.5-15.5) % Plt Count 332 (150-450) k/uL Neutrophils % 87 % Lymphocytes % 9 % Monocytes % 2 % Eosinophils % 1 % Basophils % 0 % Neutrophils # 11.7 H (1.3-7.7) k/uL Lymphocytes # 1.2 (1.0-4.8) k/uL Monocytes # 0.3 (0-1.0) k/uL Eosinophils # 0.2 (0-0.7) k/uL Basophils # 0.0 (0-0.2) k/uL Sodium 140 (137-145) mmol/L Potassium 4.0 (3.5-5.1) mmol/L Chloride 103 (98-107) mmol/L Carbon Dioxide 26 (22-30) mmol/L Anion Gap 11 mmol/L BUN 14 (9-20) mg/dL Creatinine 0.86 (0.66-1.25) mg/dL Est GFR (CKD-EPI)AfAm >90 (>60 ml/min/1.73 sqM) Est GFR (CKD-EPI)NonAf >90 (>60 ml/min/1.73 sqM) Glucose 135 H (74-99) mg/dL Calcium 9.9 (8.4-10.2) mg/dL Total Bilirubin 1.3 (0.2-1.3) mg/dL AST 20 (17-59) U/L ALT 21 (21-72) U/L Alkaline Phosphatase 68 (38-126) U/L Creatine Kinase 51 L (55-170) U/L Total Protein 7.8 (6.3-8.2) g/dL Albumin 5.0 (3.5-5.0) g/dL Lipase 54 (23-300) U/L Disposition Clinical Impression: Cyclic vomiting syndrome, Drug-seeking behavior, Drug-induced nausea and vomiting Disposition: ADMITTED IP TO THIS [facility] Condition: Stable Referrals: Sher Lewis MD [Primary Care Provider] - 1-2 days
[2018-08-13] MEDS: SODIUM CHLORIDE 0.9% 2,000 ML IV STA ×2 (04:48→06:23)
[2018-08-13 04:52] LABS: Basophils % (A) 0 %; Eosinophils # (A) 0.2 k/uL (0-0.7); Eosinophils % (A) 1 %; HCT 43.6 % (39.0-53.0); HGB 14.9 gm/dL (13.0-17.5); Lymphocytes # (A) 1.2 k/uL (1.0-4.8); Lymphocytes % (A) 9 %; MCHC 34.1 g/dL (31.0-37.0); Mean Platelet Volume 8.2; Monocytes # (A) 0.3 k/uL (0-1.0); Monocytes % (A) 2 %; Neutrophils # (A) 11.7 k/uL (1.3-7.7); Neutrophils % (A) 87 %; Platelet Count 332 k/uL (150-450); RBC 5.13 m/uL (4.30-5.90); RDW 13.7 % (11.5-15.5); WBC 13.4 k/uL (3.8-10.6)
[2018-08-13 05:00] LABS: ALT 21 U/L (21-72); AST 20 U/L (17-59); African American GFR (CKD) >90 (>60 ml/min/1.73 sqM); Alkaline Phosphatase 68 U/L (38-126); Anion Gap 11 mmol/L; Blood Urea Nitrogen 14 mg/dL (9-20); Calcium 9.9 mg/dL (8.4-10.2); Carbon Dioxide 26 mmol/L (22-30); Chloride 103 mmol/L (98-107); Creatine Kinase 51 U/L (55-170); Glucose 135 mg/dL (74-99); Lipase 54 U/L (23-300); Sodium 140 mmol/L (137-145); Total Bilirubin 1.3 mg/dL (0.2-1.3); Total Protein 7.8 g/dL (6.3-8.2)
[2018-08-13] MEDS ORDERED: HALOPERIDOL LACTATE 5 MG/ML 1 ML VIAL IM STA (05:18)
[2018-08-13] MEDS ORDERED: LORazepam 2 MG/ML INJ IV STA (06:11)
[2018-08-13] MEDS ORDERED: NALOXONE 0.4 MG/ML 1 ML VIAL IV PRN (07:00)
[2018-08-13] MEDS: SODIUM CHLORIDE 0.9% 1,000 ML IV SCH ×2 (08:00→16:13)
[2018-08-13] MEDS ORDERED: PANTOPRAZOLE 40 MG/10 ML VIAL IV SCH (09:00)
[2018-08-13] MEDS: ONDANSETRON 4 MG/2 ML VIAL IVP PRN ×2 (10:42→18:33)
[2018-08-13] MEDS: FAMOTIDINE 20 MG/2 ML VIAL IV SCH ×2 (10:42→20:30)
[2018-08-13] MEDS: HYDROmorphone 0.5 MG/0.5 ML SYRINGE IVP PRN ×3 (12:04→23:35)
[2018-08-13] MEDS: ENOXAPARIN 40 MG/0.4 ML SYRINGE SQ SCH (18:00)
[2018-08-13] MEDS: LORazepam 1 MG TAB PO PRN (20:29)
[2018-08-13] MEDS: HYDROcodone/APAP 7.5-325MG 1 EACH TAB PO PRN (20:30)
[2018-08-13] MEDS ORDERED: AMITRIPTYLINE HCL 50 MG TAB PO SCH (21:00)
--- NOTE | 2018-08-13 22:36 | HP ---
HISTORY AND PHYSICAL DATE OF ADMISSION: 08/13/2018. DATE OF SERVICE: 08/13/2018. PRESENTING COMPLAINT: Nausea, vomiting, abdominal pain. HISTORY OF PRESENTING COMPLAINT: This is a 33-year-old patient who follows with Dr. Sher Lewis. Chronic stable medical conditions include lower back pain. The patient has a longstanding history of cyclic vomiting syndrome and has had several admissions over the years for the same. Patient yesterday started having increasing nausea, vomiting frequently, also increasing abdominal pain, which is typical pattern with these presentations. No fever, chills. No diarrhea. Unable to keep his medications down. The patient admitted to the ICU, started on IV fluids. Unable to keep anything down, feeling tired and run down. REVIEW OF SYSTEMS: CONSTITUTIONAL: Tired. HEENT: None. RESPIRATORY none. CARDIOVASCULAR: None. GASTROINTESTINAL as above. GENITOURINARY none. MUSCULOSKELETAL chronic low back pain. DERMATOLOGICAL, HEMATOLOGIC, LYMPHATICS: none. PSYCHIATRY none. NEUROLOGICAL none. PAST MEDICAL HISTORY: Of cyclic vomiting syndrome, GERD, chronic low back pain, obesity. PAST SURGICAL HISTORY: Appendectomy and cholecystectomy. SOCIAL HISTORY: Works at a [employer]. No smoking. No alcohol. Lives with his girlfriend. FAMILY HISTORY: Reviewed. Noncontributory to presentation. HOME MEDICATIONS: 1. Zofran 4 mg q.8 p.r.n. 2. Omeprazole 20 mg p.o. daily. 3. Ativan 1 mg p.o. q.i.d. p.r.n. 4. [place] 7.5 one tab q.6h p.r.n. 5. Amitriptyline 50 mg q.h.s. ALLERGIES: None. PHYSICAL EXAMINATION: VITAL SIGNS: On presentation: Temperature 98.8, pulse 87, respiration 16, blood pressure 123/99, pulse ox 98% on room air. GENERAL APPEARANCE: Well built, BMI 33.9. Lying in bed, tired-appearing. EYES: Pupils equal. Conjunctivae normal. HEENT: External appearance of nose and ears normal. Oral cavity dry. NECK: JVD unable to assess. Mass not palpable. RESPIRATORY: Effort normal. LUNGS: Fair entry. CARDIOVASCULAR: First and second sounds normal. No edema. ABDOMEN: Soft. Some tenderness. No guarding or rigidity. Liver and spleen not palpable. LYMPHATIC: No lymph nodes palpable in the neck and axilla. PSYCHIATRY: Alert and oriented times three. Mood and affect anxious-appearing. NEUROLOGICAL: Pupils equal. Cranial nerves grossly intact. Power and sensation grossly intact. INVESTIGATIONS: White count 13.4, hemoglobin 14.9, potassium 4.0. BUN and creatinine is normal. ASSESSMENT: 1. Acute exacerbation of cyclic vomiting syndrome. 2. Chronic low back pain from herniated disc. 3. Clinical dehydration from excessive vomiting. 4. Obesity BMI 33. PLAN: Patient is started on IV fluids, Lovenox for DVT prophylaxis. Given IV fluids. Oral medications were held. Also given some IV pain medications. The patient will be tried on clear liquid diet and diet will be advanced depending on his clinical status. Care was discussed with the patient. Copy to Dr. Sher Lewis. FREDERIC / HUMBLEN: [id number] /
[2018-08-14] MEDS: ONDANSETRON 4 MG/2 ML VIAL IVP PRN (01:49)
[2018-08-14] MEDS: SODIUM CHLORIDE 0.9% 1,000 ML IV SCH (01:50)
[2018-08-14] MEDS: HYDROcodone/APAP 7.5-325MG 1 EACH TAB PO PRN (02:50)
[2018-08-14] MEDS: LORazepam 1 MG TAB PO PRN (02:50)
[2018-08-14] MEDS: HYDROmorphone 0.5 MG/0.5 ML SYRINGE IVP PRN ×2 (06:15→12:06)
[2018-08-14 08:41] VITALS: BP 98/62; PULSE 89; RESP 18; TEMP 98.3
[2018-08-14] MEDS: FAMOTIDINE 20 MG/2 ML VIAL IV SCH (08:44)
[2018-08-14] MEDS: ENOXAPARIN 40 MG/0.4 ML SYRINGE SQ SCH (08:44)
[2018-08-14] MEDS ORDERED: NON-FORMULARY DRUG (Omeprazole [Omeprazole] 20 MG) PO SCH (09:00)
[2018-08-14 13:19] VITALS: BMI 33.9
== END 2018-08-14 13:14 | disposition home or self-care (01) ==
LOC: EC 04:10 → 1SOBS 07:00
PROVIDERS: ADMIT Hospitalist; ATTEND Hospitalist
DX: G43.A0 Cyclical vomiting, in migraine, not intractable (principal); E86.0 Dehydration; T50.905A Adverse effect of unspecified drugs, medicaments and biological substances, initial encounter; Z76.5 Malingerer [conscious simulation]; K21.9 Gastro-esophageal reflux disease without esophagitis; J45.909 Unspecified asthma, uncomplicated; G89.29 Other chronic pain; M54.5 Low back pain; F41.9 Anxiety disorder, unspecified; E66.9 Obesity, unspecified; Z68.33 Body mass index [BMI] 33.0-33.9, adult; Z79.891 Long term (current) use of opiate analgesic; Z79.899 Other long term (current) drug therapy; Z90.49 Acquired absence of other specified parts of digestive tract; Z87.891 Personal history of nicotine dependence; Z83.3 Family history of diabetes mellitus; Z84.89 Family history of other specified conditions
CPT/HCPCS: 96372 ×2; 96376 ×3; 96361; 96374; 96375; 99285; 36415; 93005; 80053; 82550; 83690; 85025; G0378 ×2; J2060; J1200; J2765; J2405 ×2; J1650 ×2; J1170 ×3; C9113

== ENCOUNTER 2018-09-08 23:29 | Observation (INO) | payer OTHER ==
[2018-09-08] MEDS ORDERED: MORPHINE SULFATE 4 MG/ML SYRINGE IV STA (23:34)
[2018-09-08] MEDS ORDERED: SODIUM CHLORIDE 0.9% 1,000 ML IV STA ×2 (23:34)
[2018-09-08] MEDS ORDERED: ONDANSETRON 4 MG/2 ML VIAL IVP STA (23:34)
[2018-09-08] MEDS ORDERED: METOCLOPRAMIDE 5 MG/ML 2 ML VIAL IVP STA (23:34)
[2018-09-08] MEDS ORDERED: SODIUM CHLORIDE 0.9% 500 ML 500 ML IV STA (23:34)
[2018-09-08] MEDS ORDERED: diphenhydrAMINE 50 MG/ML 1 ML VIAL IVP STA (23:34)
--- NOTE | 2018-09-08 23:36 | ED ---
Nausea/Vomiting/Diarrhea HPI - General Stated complaint: Abdominal Pain Time Seen by Provider: 09/08/18 23:33 Source: patient, family, RN notes reviewed, old records reviewed Mode of arrival: ambulatory Limitations: no limitations - History of Present Illness Initial comments: This is a 33-year-old male the ER for evaluation. Patient won't this facility for evaluation of bowel pain and cyclic vomiting syndrome, patient presents with same today. Persistent vomiting all here in the ER. No recent change in medications no drug or alcohol abuse per patient. Patient has no recent travel history no fevers known denying blood in either diarrhea or vomit MD complaint: nausea, vomiting, abdominal pain -: hour(s) (2) Description of Vomiting: food contents Description of Diarrhea: water Associated Abdominal Pain: Yes Radiation: none Severity: severe Severity scale (1-10): 8 Quality: stabbing, aching Consistency: constant Improves with: none Worsens with: none Context: other (Same) Associated Symptoms: loss of appetite, malaise, nausea/vomiting, weakness - Related Data Home Medications Medication Instructions Recorded Confirmed Hydrocodone/Acetaminophen [[place] 1 tab PO Q6HR PRN 01/26/18 09/08/18 7.5-325] Omeprazole 20 mg PO DAILY 07/10/18 09/08/18 LORazepam [Ativan] 1 mg PO QID PRN 08/13/18 09/08/18 Previous Rx's Medication Instructions Recorded Amitriptyline HCl 50 mg PO HS #7 tab 12/16/17 Ondansetron Odt [Zofran ODT] 4 mg PO Q8HR PRN #10 tab 05/13/18 Allergies Allergy/AdvReac Type Severity Reaction Status Date / Time No Known Allergies Allergy Verified 09/08/18 23:43 Review of Systems ROS Statement: Those systems with pertinent positive or pertinent negative responses have been documented in the HPI. ROS Other: All systems not noted in ROS Statement are negative. Past Medical History Past Medical History: Asthma, GERD/Reflux Additional Past Medical History / Comment(s): cyclic vomiting syndrome, numbness/tingling bilateral feet when vomiting, low back pain/ruptured discs, occupational asthma, History of Any Multi-Drug Resistant Organisms: None Reported Past Surgical History: Adenoidectomy, Appendectomy, Cholecystectomy, Orthopedic Surgery, Tonsillectomy Additional Past Surgical History / Comment(s): EGD, ORIF bilateral ankles Past Anesthesia/Blood Transfusion Reactions: No Reported Reaction Past Psychological History: Anxiety Smoking Status: Former smoker - Past Family History Father Family Medical History: No Reported History Mother Family Medical History: Diabetes Mellitus Additional Family Medical History / Comment(s): severe food allergies General Exam Limitations: no limitations General appearance: alert, in no apparent distress, anxious, in distress Head exam: Present: atraumatic, normocephalic, normal inspection Eye exam: Present: normal appearance, PERRL, EOMI. Absent: scleral icterus, conjunctival injection, periorbital swelling ENT exam: Present: normal exam, mucous membranes moist Neck exam: Present: normal inspection. Absent: tenderness, meningismus, lymphadenopathy Respiratory exam: Present: normal lung sounds bilaterally. Absent: respiratory distress, wheezes, rales, rhonchi, stridor Cardiovascular Exam: Present: regular rate, normal rhythm, normal heart sounds. Absent: systolic murmur, diastolic murmur, rubs, gallop, clicks GI/Abdominal exam: Present: soft, normal bowel sounds. Absent: distended, ten derness, guarding, rebound, rigid Extremities exam: Present: normal inspection, full ROM, normal capillary refill. Absent: tenderness, pedal edema, joint swelling, calf tenderness Back exam: Present: normal inspection Neurological exam: Present: alert, oriented X3, CN II-XII intact Psychiatric exam: Present: normal affect, normal mood Skin exam: Present: warm, dry, intact, normal color. Absent: rash Course Vital Signs 09/08/18 23:32 Temperature 98.5 F Pulse Rate 96 Respiratory 18 Rate Blood Pressure 151/100 O2 Sat by Pulse 97 Oximetry - Reevaluation(s) Reevaluation #1: 09/09/18 02:06 Medical record is reviewed Reevaluation #2: 09/09/18 02:06 Patient still vomiting beginning better pain control and nausea control Medical Decision Making - Medical Decision Making 33 male the ER for evaluation. Patient resents today for evaluation regarding nausea weakness not feeling well secondary vomiting syndrome. We'll admit for pain control - Lab Data Result diagrams: 09/09/18 00:00 09/09/18 00:00 Lab Results 09/09/18 09/09/18 Range/Units 00:00 00:00 WBC 13.5 H (3.8-10.6) k/uL RBC 5.31 (4.30-5.90) m/uL Hgb 15.8 (13.0-17.5) gm/dL Hct 45.9 (39.0-53.0) % MCV 86.4 (80.0-100.0) fL MCH 29.7 (25.0-35.0) pg MCHC 34.4 (31.0-37.0) g/dL RDW 14.6 (11.5-15.5) % Plt Count 367 (150-450) k/uL Neutrophils % 75 % Lymphocytes % 18 % Monocytes % 4 % Eosinophils % 2 % Basophils % 0 % Neutrophils # 10.2 H (1.3-7.7) k/uL Lymphocytes # 2.4 (1.0-4.8) k/uL Monocytes # 0.5 (0-1.0) k/uL Eosinophils # 0.2 (0-0.7) k/uL Basophils # 0.0 (0-0.2) k/uL Sodium 145 (137-145) mmol/L Potassium 4.1 (3.5-5.1) mmol/L Chloride 105 (98-107) mmol/L Carbon Dioxide 28 (22-30) mmol/L Anion Gap 12 mmol/L BUN 13 (9-20) mg/dL Creatinine 1.04 (0.66-1.25) mg/dL Est GFR (CKD-EPI)AfAm >90 (>60 ml/min/1.73 sqM) Est GFR (CKD-EPI)NonAf >90 (>60 ml/min/1.73 sqM) Glucose 120 H (74-99) mg/dL Calcium 10.8 H (8.4-10.2) mg/dL Phosphorus 4.4 (2.5-4.5) mg/dL Magnesium 2.0 (1.6-2.3) mg/dL Total Bilirubin 0.8 (0.2-1.3) mg/dL AST 26 (17-59) U/L ALT 39 (21-72) U/L Alkaline Phosphatase 81 (38-126) U/L Total Protein 8.4 H (6.3-8.2) g/dL Albumin 5.3 H (3.5-5.0) g/dL Lipase 203 (23-300) U/L Serum Alcohol <10 mg/dL Disposition Clinical Impression: Intractable nausea and vomiting, Nausea and vomiting, Intractable abdominal pain Disposition: ADMITTED IP TO THIS [facility] Condition: Good Instructions (If sedation given, give patient instructions): Abdominal Pain (ED) Is patient prescribed a controlled substance at d/c from ED?: No Referrals: Sher Lewis MD [Primary Care Provider] - 1-2 days
[2018-09-09 00:15] LABS: Basophils % (A) 0 %; Eosinophils # (A) 0.2 k/uL (0-0.7); Eosinophils % (A) 2 %; HCT 45.9 % (39.0-53.0); HGB 15.8 gm/dL (13.0-17.5); Lymphocytes # (A) 2.4 k/uL (1.0-4.8); Lymphocytes % (A) 18 %; MCH 29.7 pg (25.0-35.0); MCHC 34.4 g/dL (31.0-37.0); MCV 86.4 fL (80.0-100.0); Mean Platelet Volume 7.9; Monocytes # (A) 0.5 k/uL (0-1.0); Monocytes % (A) 4 %; Neutrophils # (A) 10.2 k/uL (1.3-7.7); Neutrophils % (A) 75 %; Platelet Count 367 k/uL (150-450); RBC 5.31 m/uL (4.30-5.90); RDW 14.6 % (11.5-15.5); WBC 13.5 k/uL (3.8-10.6)
[2018-09-09 00:22] LABS: ALT 39 U/L (21-72); AST 26 U/L (17-59); African American GFR (CKD) >90 (>60 ml/min/1.73 sqM); Albumin 5.3 g/dL (3.5-5.0); Alcohol <10 mg/dL; Alkaline Phosphatase 81 U/L (38-126); Anion Gap 12 mmol/L; Blood Urea Nitrogen 13 mg/dL (9-20); Calcium 10.8 mg/dL (8.4-10.2); Carbon Dioxide 28 mmol/L (22-30); Chloride 105 mmol/L (98-107); Glucose 120 mg/dL (74-99); Phosphorus 4.4 mg/dL (2.5-4.5); Potassium 4.1 mmol/L (3.5-5.1); Sodium 145 mmol/L (137-145); Total Bilirubin 0.8 mg/dL (0.2-1.3); Total Protein 8.4 g/dL (6.3-8.2)
[2018-09-09] MEDS ORDERED: HYDROmorphone 0.5 MG/0.5 ML SYRINGE IVP STA (00:47)
[2018-09-09] MEDS ORDERED: PANTOPRAZOLE 40 MG/10 ML VIAL IVP STA (02:03)
[2018-09-09] MEDS ORDERED: HYDROmorphone 1 MG/ML 1 ML SYRINGE IVP STA (02:39)
[2018-09-09] MEDS: ONDANSETRON 4 MG/2 ML VIAL IVP PRN ×3 (03:33→15:39)
[2018-09-09 03:49] VITALS: BMI 33.9
[2018-09-09] MEDS: HYDROmorphone 1 MG/ML 1 ML SYRINGE IVP PRN ×5 (04:00→19:38)
[2018-09-09 05:02] LABS: Appearance,Urine Clear (Clear); Bilirubin,Urine Negative (Negative); Blood,Urine Trace (Negative); Color,Urine Light Yellow; Glucose,Urine (UA) Negative (Negative); Ketones,Urine 3+ (Negative); Leukocyte Esterase,Urine Negative (Negative); Nitrite,Urine Negative (Negative); Protein,Urine Negative (Negative); RBC,Urine 4 /hpf (0-5); Specific Gravity,Urine 1.015 (1.001-1.035); Urobilinogen,Urine <2.0 mg/dL (<2.0)
[2018-09-09 05:38] LABS: Amphetamine Screen,Urine Not Detected (NotDetected); Barbiturate Screen,Urine Not Detected (NotDetected); Benzodiazepines Screen,Urine Detected (NotDetected); Cocaine Screen,Urine Not Detected (NotDetected); Methadone Screen, Urine Not Detected (NotDetected); Opiate Screen,Urine Detected (NotDetected); Oxycodone Screen, Urine Not Detected (NotDetected); Phencyclidine Screen,Urine Not Detected (NotDetected); Tricyclic Antidepressant,Urine Detected (NotDetected); Urn Cannabinoid Scrn Detected (NotDetected)
[2018-09-09] MEDS: METOCLOPRAMIDE 5 MG/ML 2 ML VIAL IVP SCH ×3 (06:17→17:11)
[2018-09-09] MEDS: diphenhydrAMINE 50 MG/ML 1 ML VIAL IVP PRN ×2 (07:56→19:37)
[2018-09-09] MEDS ORDERED: PANTOPRAZOLE 40 MG/10 ML VIAL IVP SCH (09:00)
--- NOTE | 2018-09-09 13:58 | P.HPIM ---
History of Present Illness H&P Date: 09/09/18 Chief Complaint: Nausea vomiting, abdominal pain History of presenting complaint: This is a pleasant 33-year-old patient of Dr. Sher Garcia. Chronic stable medical conditions include lower back pain, long history of cyclical vomiting syndrome and multiple admissions for the same. Patient yet again had a flareup of does state starting yesterday evening. Multiple episodes of vomiting. No fever no chills. Increasing upper abdominal pain. No fever no chills. No change in urine or bowel pattern. Feeling tired and exhausted. Admitted for the same. Started on IV fluids and IV pain medications. Pain is localized to the upper abdomen does not radiate. No aggravating or relieving factors. Review of systems: GEN.: Tired EYES: None HEENT: None NECK: None RESPIRATORY: None CARDIOVASCULAR: None GASTROINTESTINAL: None GENITOURINARY: None MUSCULOSKELETAL: Chronic low back pain LYMPHATICS: None HEMATOLOGICAL: None PSYCHIATRY: None NEUROLOGICAL: None Past medical history: Cyclical vomiting syndrome, GERD, chronic low back pain, obesity Social history: Works at a [employer]. No smoking. No alcohol. Lives with girlfriend. Family history: Reviewed, and non-carpeted presentation Physical examination: VITAL SIGNS: 98.5, 96, 18, 151/100, 97% room air GENERAL: BMI 33.9, sitting up, tired appearing. EYES: Pupils equal. Conjunctiva normal. HEENT: External appearance of nose and ears normal, oral cavity dry. NECK: JVD not raised; masses not palpable. HEART: First and second heart sounds are normal; no edema. LUNGS: Respiratory rate normal; clear to auscultation. ABDOMEN: Soft, epigastric tenderness, no guarding or rigidity, liver spleen not palpable, no masses palpable. PSYCH: Alert and oriented x3; mood and affect anxiousl. NEUROLOGICAL: Cranial nerves grossly intact; no facial asymmetry, power and sensation grossly intact. LYMPHATICS: No lymph nodes palpable in the axilla and neck Investigations: White count 13.5 lobe infection 0.8 potassium 4.1 creatinine 1.04 Urine drug screen positive for opiates, tricyclic antidepressants, benzodiazepines, marijuana Assessment: -Acute exacerbation of cyclical vomiting syndrome. -Chronic low back pain from herniated disc -Obesity BMI 33.9 Plan: Patient is made nothing by mouth. IV fluids. IV pain medications. Scopolamine patch. Care was discussed with the patient. Currently bedrest. Past Medical History Past Medical History: Asthma, GERD/Reflux Additional Past Medical History / Comment(s): cyclic vomiting syndrome, numbness/tingling bilateral feet when vomiting, low back pain/ruptured discs, occupational asthma, History of Any Multi-Drug Resistant Organisms: None Reported Past Surgical History: Adenoidectomy, Appendectomy, Cholecystectomy, Orthopedic Surgery, Tonsillectomy Additional Past Surgical History / Comment(s): EGD, ORIF bilateral ankles Past Anesthesia/Blood Transfusion Reactions: No Reported Reaction Past Psychological History: Anxiety Additional Psychological History / Comment(s): PT LIVES WITH HIS GIRL FRIEND AND 2 KIDS. Smoking Status: Former smoker Past Alcohol Use History: None Reported Additional Past Alcohol Use History / Comment(s): Pt states he smoked starting 1994, QUIT 2007. Past Drug Use History: Marijuana Additional Drug Use History / Comment(s): daily MEDICAL marijuana use(1-2 TIMES A DAY) - Past Family History Father Family Medical History: No Reported History Mother Family Medical History: Diabetes Mellitus Additional Family Medical History / Comment(s): severe food allergies Medications and Allergies Home Medications Medication Instructions Recorded Confirmed Type Amitriptyline HCl 50 mg PO HS #7 tab 12/16/17 09/08/18 Rx Hydrocodone/Acetaminophen [[place] 1 tab PO Q6HR PRN 01/26/18 09/08/18 History 7.5-325] Ondansetron Odt [Zofran ODT] 4 mg PO Q8HR PRN #10 tab 05/13/18 09/08/18 Rx Omeprazole 20 mg PO DAILY 07/10/18 09/08/18 History LORazepam [Ativan] 1 mg PO QID PRN 08/13/18 09/08/18 History Allergies Allergy/AdvReac Type Severity Reaction Status Date / Time No Known Allergies Allergy Verified 09/08/18 23:43 Physical Exam Vitals: Vital Signs Temp Pulse Pulse Resp BP BP Pulse Ox 09/09/18 07:00 98.1 F 66 18 139/74 100 09/09/18 03:34 98.1 F 71 20 155/86 100 09/09/18 02:41 98.7 F 87 18 148/92 100 09/08/18 23:32 98.5 F 96 18 151/100 97 Intake and Output 09/08/18 09/09/18 09/09/18 22:59 06:59 14:59 Intake Total 0 800 Balance 0 800 Intake: IV 800 Sodium Chloride 0.9% 1, 800 000 ml @ 100 mls/hr IV . Q10H STA Rx#:[id number] Oral 0 Other: # Voids 1 Weight 113.398 kg Results CBC & Chem 7: 09/09/18 00:00 09/09/18 00:00 Labs: Abnormal Lab Results - Last 24 Hours (Table) 09/09/18 09/09/18 09/09/18 Range/Units 00:00 00:00 04:40 WBC 13.5 H (3.8-10.6) k/uL Neutrophils # 10.2 H (1.3-7.7) k/uL Glucose 120 H (74-99) mg/dL Calcium 10.8 H (8.4-10.2) mg/dL Total Protein 8.4 H (6.3-8.2) g/dL Albumin 5.3 H (3.5-5.0) g/dL Urine Ketones 3+ H (Negative) Urine Blood Trace H (Negative) Urine Opiates Screen (NotDetected) U Tricyclic Antidepress (NotDetected) U Benzodiazepines Scrn (NotDetected) U Marijuana (THC) Screen (NotDetected) 09/09/18 Range/Units 04:40 WBC (3.8-10.6) k/uL Neutrophils # (1.3-7.7) k/uL Glucose (74-99) mg/dL Calcium (8.4-10.2) mg/dL Total Protein (6.3-8.2) g/dL Albumin (3.5-5.0) g/dL Urine Ketones (Negative) Urine Blood (Negative) Urine Opiates Screen Detected H (NotDetected) U Tricyclic Antidepress Detected H (NotDetected) U Benzodiazepines Scrn Detected H (NotDetected) U Marijuana (THC) Screen Detected H (NotDetected) Thrombosis Risk Factor Assmnt - Choose All That Apply Any of the Below Risk Factors Present?: Yes Each Factor Represents 1 point: Obesity (BMI >25) Other Risk Factors: No Other congenital or acquired thrombophilia - If yes, enter type in comment: No Thrombosis Risk Factor Assessment Total Risk Factor Score: 1 Thrombosis Risk Factor Assessment Level: Low Risk
[2018-09-09] MEDS ORDERED: SCOPOLAMINE 1.5MG/72HR PATCH TRANSDERM SCH (14:00)
[2018-09-09] MEDS: LACTATED RINGERS 1,000 ML IV SCH (15:06)
[2018-09-09 19:31] VITALS: RESP 16
[2018-09-09] MEDS: FAMOTIDINE 20 MG/2 ML VIAL IV SCH (20:28)
[2018-09-10] MEDS: ONDANSETRON 4 MG/2 ML VIAL IVP PRN (00:09)
[2018-09-10] MEDS: METOCLOPRAMIDE 5 MG/ML 2 ML VIAL IVP SCH ×4 (00:10→17:04)
[2018-09-10] MEDS: LACTATED RINGERS 1,000 ML IV SCH ×4 (00:10→16:16)
[2018-09-10] MEDS: HYDROmorphone 1 MG/ML 1 ML SYRINGE IVP PRN ×5 (00:11→16:15)
[2018-09-10] MEDS: FAMOTIDINE 20 MG/2 ML VIAL IV SCH (07:46)
[2018-09-10 15:22] VITALS: BP 136/58; PULSE 68; TEMP 98.6
--- NOTE | 2018-09-11 00:05 | P.DS ---
Providers Date of admission: 09/09/18 02:07 Expected date of discharge: 09/10/18 Attending physician: Wade Rebolledo Primary care physician: [facility] Course: History of presenting complaint: This is a pleasant 33-year-old patient of Dr. Sher Garcia. Chronic stable medical conditions include lower back pain, long history of cyclical vomiting syndrome and multiple admissions for the same. Patient yet again had a flareup of does state starting yesterday evening. Multiple episodes of vomiting. No fever no chills. Increasing upper abdominal pain. No fever no chills. No change in urine or bowel pattern. Feeling tired and exhausted. Admitted for the same. Started on IV fluids and IV pain medications. Pain is localized to the upper abdomen does not radiate. No aggravating or relieving factors. This was patient's typical presentation of cyclical vomiting syndrome. Treated with IV fluids, pain medications, antiemetics. Responded well. This morning started included liquids that was advanced. By evening was back to his baseline. Cane to go home. Physical examination: VITAL SIGNS: 98.7, 59, 16, 119 x 58, 100% room air GENERAL: BMI 33.9, sitting up, tired appearing. EYES: Pupils equal. Conjunctiva normal. HEENT: External appearance of nose and ears normal, oral cavity dry. NECK: JVD not raised; masses not palpable. HEART: First and second heart sounds are normal; no edema. LUNGS: Respiratory rate normal; clear to auscultation. ABDOMEN: Soft, epigastric tenderness, no guarding or rigidity, liver spleen not palpable, no masses palpable. PSYCH: Alert and oriented x3; mood and affect anxiousl. Investigations: White count 13.5 lobe infection 0.8 potassium 4.1 creatinine 1.04 Urine drug screen positive for opiates, tricyclic antidepressants, benzodiazepines, marijuana Discharge diagnoses: -Acute exacerbation of cyclical vomiting syndrome. -Chronic low back pain from herniated disc -Obesity BMI 33.9 Disposition: Home Patient Condition at Discharge: Stable Plan - Discharge Summary Discharge Rx Participant: No New Discharge Prescriptions: No Action Amitriptyline HCl 50 mg PO HS #7 tab Hydrocodone/Acetaminophen [[place] 7.5-325] 1 tab PO Q6HR PRN PRN Reason: Pain Ondansetron Odt [Zofran ODT] 4 mg PO Q8HR PRN #10 tab PRN Reason: Vomiting Omeprazole 20 mg PO DAILY LORazepam [Ativan] 1 mg PO QID PRN PRN Reason: Anxiety Discharge Medication List Amitriptyline HCl 50 mg PO HS #7 tab 12/16/17 [Rx] Hydrocodone/Acetaminophen [[place] 7.5-325] 1 tab PO Q6HR PRN 01/26/18 [History] Ondansetron Odt [Zofran ODT] 4 mg PO Q8HR PRN #10 tab 05/13/18 [Rx] Omeprazole 20 mg PO DAILY 07/10/18 [History] LORazepam [Ativan] 1 mg PO QID PRN 08/13/18 [History] Follow up Appointment(s)/Referral(s): Sher Lewis MD [Primary Care Provider] - 1-2 days (office closed. please call to schedule appointment) Patient Instructions/Handouts: Abdominal Pain (ED) Discharge Disposition: HOME SELF-CARE
[2018-09-11] MEDS ORDERED: FAMOTIDINE 20 MG TAB PO SCH (09:00)
== END 2018-09-10 18:49 | disposition home or self-care (01) ==
LOC: EC 23:29 → 4SSUR 09-09 02:07 → 4MS4W 09-10 16:35
PROVIDERS: ADMIT Hospitalist; ATTEND Hospitalist
DX: G43.A0 Cyclical vomiting, in migraine, not intractable (principal); R10.10 Upper abdominal pain, unspecified; G89.29 Other chronic pain; M54.5 Low back pain; F41.9 Anxiety disorder, unspecified; K21.9 Gastro-esophageal reflux disease without esophagitis; J45.909 Unspecified asthma, uncomplicated; R53.1 Weakness; R20.0 Anesthesia of skin; R20.2 Paresthesia of skin; E66.9 Obesity, unspecified; Z68.33 Body mass index [BMI] 33.0-33.9, adult; Z79.891 Long term (current) use of opiate analgesic; Z79.899 Other long term (current) drug therapy; Z87.891 Personal history of nicotine dependence; Z90.49 Acquired absence of other specified parts of digestive tract; Z83.3 Family history of diabetes mellitus; Z84.89 Family history of other specified conditions
CPT/HCPCS: 96376 ×3; 96361 ×4; 96375 ×3; 96374; 99285; 36415; 80053; 83690; 83735; 84100; 85025; 81001; 80306; G0378 ×2; G0480; J2270; J1200 ×2; J2765 ×3; J2405 ×3; J1170 ×3; C9113; 80320

== ENCOUNTER 2018-09-26 08:13 | Emergency (ER) | payer OTHER ==
[2018-09-26 08:26] VITALS: TEMP 98.8
[2018-09-26] MEDS ORDERED: HALOPERIDOL LACTATE 5 MG/ML 1 ML VIAL IVP STA ×2 (08:41→10:01)
[2018-09-26] MEDS ORDERED: FAMOTIDINE 20 MG/2 ML VIAL IV STA (08:42)
[2018-09-26] MEDS ORDERED: SODIUM CHLORIDE 0.9% 1,000 ML IV STA (08:42)
[2018-09-26] MEDS ORDERED: METOCLOPRAMIDE 5 MG/ML 2 ML VIAL IVP STA (08:44)
--- NOTE | 2018-09-26 08:54 | ED ---
General Adult HPI - General Chief complaint: Abdominal Pain Stated complaint: VOMITING Time Seen by Provider: 09/26/18 08:20 Source: patient, RN notes reviewed Mode of arrival: ambulatory Limitations: physical limitation - History of Present Illness Initial comments: Patient is a pleasant 33-year-old male presenting to the emergency department with nausea vomiting abdominal discomfort. Onset of symptoms was several hours ago. Symptoms are similar to his chronic cyclic vomiting. Patient admits to still smoking marijuana however he states he is trying to decrease his amount. Patient states he has vomited multiple times. Patient has epigastric d iscomfort. No fevers. Patient requests IV pain and nausea medicine and states usually he needs several doses and needs to be admitted. - Related Data Home Medications Medication Instructions Recorded Confirmed Hydrocodone/Acetaminophen [[place] 1 tab PO Q6HR PRN 01/26/18 09/26/18 7.5-325] Omeprazole 20 mg PO DAILY 07/10/18 09/26/18 LORazepam [Ativan] 1 mg PO QID PRN 08/13/18 09/26/18 Previous Rx's Medication Instructions Recorded Amitriptyline HCl 50 mg PO HS #7 tab 12/16/17 Ondansetron Odt [Zofran ODT] 4 mg PO Q8HR PRN #10 tab 05/13/18 Allergies Allergy/AdvReac Type Severity Reaction Status Date / Time No Known Allergies Allergy Verified 09/26/18 08:57 Review of Systems ROS Statement: Those systems with pertinent positive or pertinent negative responses have been documented in the HPI. ROS Other: All systems not noted in ROS Statement are negative. Constitutional: Denies: fever Eyes: Denies: eye pain ENT: Denies: ear pain Respiratory: Denies: cough Cardiovascular: Denies: chest pain Endocrine: Denies: fatigue Gastrointestinal: Reports: abdominal pain, nausea, vomiting Genitourinary: Denies: dysuria Musculoskeletal: Denies: back pain Skin: Denies: rash Neurological: Denies: weakness Past Medical History Past Medical History: Asthma, GERD/Reflux Additional Past Medical History / Comment(s): cyclic vomiting syndrome, numbness/tingling bilateral feet when vomiting, low back pain/ruptured discs, occupational asthma, History of Any Multi-Drug Resistant Organisms: None Reported Past Surgical History: Adenoidectomy, Appendectomy, Cholecystectomy, Orthopedic Surgery, Tonsillectomy Additional Past Surgical History / Comment(s): EGD, ORIF bilateral ankles Past Anesthesia/Blood Transfusion Reactions: No Reported Reaction Past Psychological History: Anxiety Smoking Status: Former smoker Past Alcohol Use History: None Reported Past Drug Use History: Marijuana - Past Family History Father Family Medical History: No Reported History Mother Family Medical History: Diabetes Mellitus Additional Family Medical History / Comment(s): severe food allergies General Exam Limitations: physical limitation General appearance: alert, in no apparent distress Head exam: Present: atraumatic Eye exam: Present: normal appearance, PERRL ENT exam: Present: normal oropharynx Neck exam: Present: normal inspection Respiratory exam: Present: normal lung sounds bilaterally Cardiovascular Exam: Present: regular rate, normal rhythm Expanded Peripheral pulses: 2+: Posterior Tibialis (R), Posterior Tibialis (L), Dorsalis Pedis (R), Dorsalis Pedis (L) GI/Abdominal exam: Present: soft, tenderness (Mild epigastric tenderness to palpation). Absent: distended, guarding, rebound, rigid, pulsatile mass Extremities exam: Present: normal inspection. Absent: pedal edema, calf tenderness Neurological exam: Present: alert Psychiatric exam: Present: normal affect, normal mood Skin exam: Present: normal color Course Vital Signs 09/26/18 09/26/18 09/26/18 08:22 09:22 11:04 Temperature 98.8 F Pulse Rate 106 H 95 88 Respiratory 18 17 14 Rate Blood Pressure 170/114 124/71 128/72 O2 Sat by Pulse 99 98 98 Oximetry Medical Decision Making - Medical Decision Making Patient reevaluated and resting comfortably in bed. Patient states nausea has resolved however still complains of discomfort. Patient requests 3 doses of Dilaudid however is receptive to receiving his [place] dose when he was told this would not be provided. - Lab Data Result diagrams: 09/26/18 08:28 09/26/18 08:28 Lab Results 09/26/18 09/26/18 09/26/18 Range/Units 08:28 08:28 08:28 WBC 13.5 H (3.8-10.6) k/uL RBC 5.60 (4.30-5.90) m/uL Hgb 16.7 (13.0-17.5) gm/dL Hct 48.1 (39.0-53.0) % MCV 85.9 (80.0-100.0) fL MCH 29.9 (25.0-35.0) pg MCHC 34.8 (31.0-37.0) g/dL RDW 12.8 (11.5-15.5) % Plt Count 374 (150-450) k/uL Neutrophils % 79 % Lymphocytes % 14 % Monocytes % 4 % Eosinophils % 1 % Basophils % 0 % Neutrophils # 10.6 H (1.3-7.7) k/uL Lymphocytes # 1.9 (1.0-4.8) k/uL Monocytes # 0.6 (0-1.0) k/uL Eosinophils # 0.2 (0-0.7) k/uL Basophils # 0.1 (0-0.2) k/uL PT 10.4 (9.0-12.0) sec INR 1.0 (<1.2) APTT 24.4 (22.0-30.0) sec Sodium 142 (137-145) mmol/L Potassium 4.3 (3.5-5.1) mmol/L Chloride 106 (98-107) mmol/L Carbon Dioxide 22 (22-30) mmol/L Anion Gap 14 mmol/L BUN 14 (9-20) mg/dL Creatinine 0.92 (0.66-1.25) mg/dL Est GFR (CKD-EPI)AfAm >90 (>60 ml/min/1.73 sqM) Est GFR (CKD-EPI)NonAf >90 (>60 ml/min/1.73 sqM) Glucose 116 H (74-99) mg/dL Calcium 10.9 H (8.4-10.2) mg/dL Total Bilirubin 2.0 H (0.2-1.3) mg/dL AST 29 (17-59) U/L ALT 47 (21-72) U/L Alkaline Phosphatase 72 (38-126) U/L Total Protein 8.9 H (6.3-8.2) g/dL Albumin 5.4 H (3.5-5.0) g/dL Amylase 71 (30-110) U/L Lipase 113 (23-300) U/L Urine Color Urine Appearance (Clear) Urine pH (5.0-8.0) Ur Specific [place] (1.001-1.035) Urine Protein (Negative) Urine Glucose (UA) (Negative) Urine Ketones (Negative) Urine Blood (Negative) Urine Nitrite (Negative) Urine Bilirubin (Negative) Urine Urobilinogen (<2.0) mg/dL Ur Leukocyte Esterase (Negative) Urine RBC (0-5) /hpf Urine WBC (0-5) /hpf Amorphous Sediment (None) /hpf Urine Bacteria (None) /hpf Urine Mucus (None) /hpf Urine Opiates Screen (NotDetected) Ur Oxycodone Screen (NotDetected) Urine Methadone Screen (NotDetected) Ur Propoxyphene Screen (NotDetected) Ur Barbiturates Screen (NotDetected) U Tricyclic Antidepress (NotDetected) Ur Phencyclidine Scrn (NotDetected) Ur Amphetamines Screen (NotDetected) U Methamphetamines Scrn (NotDetected) U Benzodiazepines Scrn (NotDetected) Urine Cocaine Screen (NotDetected) U Marijuana (THC) Screen (NotDetected) 09/26/18 Range/Units 09:10 WBC (3.8-10.6) k/uL RBC (4.30-5.90) m/uL Hgb (13.0-17.5) gm/dL Hct (39.0-53.0) % MCV (80.0-100.0) fL MCH (25.0-35.0) pg MCHC (31.0-37.0) g/dL RDW (11.5-15.5) % Plt Count (150-450) k/uL Neutrophils % % Lymphocytes % % Monocytes % % Eosinophils % % Basophils % % Neutrophils # (1.3-7.7) k/uL Lymphocytes # (1.0-4.8) k/uL Monocytes # (0-1.0) k/uL Eosinophils # (0-0.7) k/uL Basophils # (0-0.2) k/uL PT (9.0-12.0) sec INR (<1.2) APTT (22.0-30.0) sec Sodium (137-145) mmol/L Potassium (3.5-5.1) mmol/L Chloride (98-107) mmol/L Carbon Dioxide (22-30) mmol/L Anion Gap mmol/L BUN (9-20) mg/dL Creatinine (0.66-1.25) mg/dL Est GFR (CKD-EPI)AfAm (>60 ml/min/1.73 sqM) Est GFR (CKD-EPI)NonAf (>60 ml/min/1.73 sqM) Glucose (74-99) mg/dL Calcium (8.4-10.2) mg/dL Total Bilirubin (0.2-1.3) mg/dL AST (17-59) U/L ALT (21-72) U/L Alkaline Phosphatase (38-126) U/L Total Protein (6.3-8.2) g/dL Albumin (3.5-5.0) g/dL Amylase (30-110) U/L Lipase (23-300) U/L Urine Color Yellow Urine Appearance Cloudy (Clear) Urine pH 5.5 (5.0-8.0) Ur Specific [place] 1.035 (1.001-1.035) Urine Protein 1+ H (Negative) Urine Glucose (UA) Negative (Negative) Urine Ketones 1+ H (Negative) Urine Blood Small H (Negative) Urine Nitrite Negative (Negative) Urine Bilirubin Negative (Negative) Urine Urobilinogen 2.0 (<2.0) mg/dL Ur Leukocyte Esterase Negative (Negative) Urine RBC 2 (0-5) /hpf Urine WBC 2 (0-5) /hpf Amorphous Sediment Occasional H (None) /hpf Urine Bacteria Rare H (None) /hpf Urine Mucus Many H (None) /hpf Urine Opiates Screen Detected H (NotDetected) Ur Oxycodone Screen Detected H (NotDetected) Urine Methadone Screen Not Detected (NotDetected) Ur Propoxyphene Screen Not Detected (NotDetected) Ur Barbiturates Screen Not Detected (NotDetected) U Tricyclic Antidepress Detected H (NotDetected) Ur Phencyclidine Scrn Not Detected (NotDetected) Ur Amphetamines Screen Not Detected (NotDetected) U Methamphetamines Scrn Not Detected (NotDetected) U Benzodiazepines Scrn Detected H (NotDetected) Urine Cocaine Screen Not Detected (NotDetected) U Marijuana (THC) Screen Detected H (NotDetected) - Radiology Data Radiology results: image reviewed (Abdominal x-ray reveals no acute process) Disposition Clinical Impression: Cannabinoid hyperemesis syndrome Disposition: HOME SELF-CARE Condition: Stable Instructions (If sedation given, give patient instructions): Acute Nausea and Vomiting (ED), Cyclic Vomiting Syndrome (ED) Additional Instructions: Please follow-up with primary care physician in the next couple days for recheck. Return for fever, not tolerating fluids, worsening or changing symptoms or other concerns. Is patient prescribed a controlled substance at d/c from ED?: No Referrals: Sher Lewis MD [Primary Care Provider] - 1-2 days Time of Disposition: 11:21
[2018-09-26 09:02] LABS: Basophils # (A) 0.1 k/uL (0-0.2); Basophils % (A) 0 %; Eosinophils # (A) 0.2 k/uL (0-0.7); Eosinophils % (A) 1 %; HCT 48.1 % (39.0-53.0); HGB 16.7 gm/dL (13.0-17.5); Lymphocytes # (A) 1.9 k/uL (1.0-4.8); Lymphocytes % (A) 14 %; MCH 29.9 pg (25.0-35.0); MCHC 34.8 g/dL (31.0-37.0); MCV 85.9 fL (80.0-100.0); Mean Platelet Volume 7.4; Monocytes # (A) 0.6 k/uL (0-1.0); Monocytes % (A) 4 %; Neutrophils # (A) 10.6 k/uL (1.3-7.7); Neutrophils % (A) 79 %; Platelet Count 374 k/uL (150-450); RDW 12.8 % (11.5-15.5); WBC 13.5 k/uL (3.8-10.6)
[2018-09-26 09:10] LABS: ALT 47 U/L (21-72); AST 29 U/L (17-59); African American GFR (CKD) >90 (>60 ml/min/1.73 sqM); Albumin 5.4 g/dL (3.5-5.0); Alkaline Phosphatase 72 U/L (38-126); Amylase 71 U/L (30-110); Anion Gap 14 mmol/L; Blood Urea Nitrogen 14 mg/dL (9-20); Calcium 10.9 mg/dL (8.4-10.2); Carbon Dioxide 22 mmol/L (22-30); Chloride 106 mmol/L (98-107); Glucose 116 mg/dL (74-99); Non-African American GFR(CKD) >90 (>60 ml/min/1.73 sqM); Potassium 4.3 mmol/L (3.5-5.1); Sodium 142 mmol/L (137-145); Total Protein 8.9 g/dL (6.3-8.2)
[2018-09-26 09:14] LABS: Partial Thromboplastin Time 24.4 sec (22.0-30.0); Prothrombin Time 10.4 sec (9.0-12.0)
--- NOTE | 2018-09-26 09:28 | XR ---
EXAMINATION TYPE: XR KUB DATE OF EXAM: 09/26/2018 COMPARISON: NONE HISTORY: Pain TECHNIQUE: Single supine KUB image of the abdomen is obtained FINDINGS: Small bowel demonstrates no evidence for dilatation or air fluid levels. Gas and fecal material is seen in non-distended colon. No convincing evidence for pneumoperitoneum. No unusual calcifications. The lung bases are clear. The osseous structures are intact. IMPRESSION: 1. Overall nonobstructive bowel gas pattern.
[2018-09-26 09:36] LABS: Amorphous Sediment,Urine Occasional /hpf; Appearance,Urine Cloudy (Clear); Bacteria,Urine Rare /hpf; Bilirubin,Urine Negative (Negative); Blood,Urine Small (Negative); Color,Urine Yellow; Glucose,Urine (UA) Negative (Negative); Ketones,Urine 1+ (Negative); Leukocyte Esterase,Urine Negative (Negative); Mucus,Urine Many /hpf; Nitrite,Urine Negative (Negative); PH, Urine 5.5 (5.0-8.0); Protein,Urine 1+ (Negative); RBC,Urine 2 /hpf (0-5); Specific Gravity,Urine 1.035 (1.001-1.035); WBC,Urine 2 /hpf (0-5)
[2018-09-26 09:44] LABS: Amphetamine Screen,Urine Not Detected (NotDetected); Benzodiazepines Screen,Urine Detected (NotDetected); Cocaine Screen,Urine Not Detected (NotDetected); Opiate Screen,Urine Detected (NotDetected); Phencyclidine Screen,Urine Not Detected (NotDetected); Urn Cannabinoid Scrn Detected (NotDetected)
[2018-09-26 09:45] LABS: Barbiturate Screen,Urine Not Detected (NotDetected); Methadone Screen, Urine Not Detected (NotDetected); Oxycodone Screen, Urine Detected (NotDetected); Tricyclic Antidepressant,Urine Detected (NotDetected)
[2018-09-26] MEDS ORDERED: CAPSAICIN 0.025% CREAM 60 GM TUBE TOPICAL STA (10:00)
[2018-09-26] MEDS ORDERED: diphenhydrAMINE 50 MG/ML 1 ML VIAL IVP STA (10:01)
[2018-09-26 11:05] VITALS: BP 128/72; PULSE 88; RESP 14
[2018-09-26] MEDS ORDERED: HYDROcodone/APAP 5-325MG 1 EACH TAB PO STA (11:13)
== END 2018-09-26 11:30 | disposition home or self-care (01) ==
LOC: EC 08:13
DX: T40.7X1A Poisoning by cannabis (derivatives), accidental (unintentional), initial encounter (principal); R11.2 Nausea with vomiting, unspecified; R10.9 Unspecified abdominal pain; K21.9 Gastro-esophageal reflux disease without esophagitis; Z87.891 Personal history of nicotine dependence; Z90.49 Acquired absence of other specified parts of digestive tract; Z98.890 Other specified postprocedural states; Z79.899 Other long term (current) drug therapy
CPT/HCPCS: 36415; 80053; 82150; 83690; 85025; 85610; 85730; 81001; 80306; 74018; 99284; 96374; 96375 ×3; 96376; 96361 ×2; J1200; J1630; J2765

== ENCOUNTER 2018-10-03 16:45 | Emergency (ER) | payer OTHER ==
[2018-10-03 16:50] VITALS: RESP 18
[2018-10-03] MEDS ORDERED: SODIUM CHLORIDE 0.9% 1,000 ML IV STA (16:58)
[2018-10-03] MEDS ORDERED: ONDANSETRON 4 MG/2 ML VIAL IVP STA (16:58)
[2018-10-03] MEDS ORDERED: HYDROmorphone 0.5 MG/0.5 ML SYRINGE IVP STA ×2 (17:24→18:23)
[2018-10-03 17:32] LABS: Basophils % (A) 0 %; Eosinophils # (A) 0.1 k/uL (0-0.7); Eosinophils % (A) 1 %; HCT 47.7 % (39.0-53.0); HGB 16.3 gm/dL (13.0-17.5); Lymphocytes # (A) 2.2 k/uL (1.0-4.8); Lymphocytes % (A) 17 %; MCH 29.4 pg (25.0-35.0); MCHC 34.1 g/dL (31.0-37.0); Mean Platelet Volume 7.3; Monocytes # (A) 0.7 k/uL (0-1.0); Monocytes % (A) 6 %; Neutrophils # (A) 9.7 k/uL (1.3-7.7); Neutrophils % (A) 75 %; Platelet Count 399 k/uL (150-450); RBC 5.54 m/uL (4.30-5.90); RDW 12.9 % (11.5-15.5); WBC 12.9 k/uL (3.8-10.6)
--- NOTE | 2018-10-03 17:38 | ED ---
Abdominal Pain HPI - General Chief Complaint: Abdominal Pain Stated Complaint: abd pain Time Seen by Provider: 10/03/18 16:57 Source: patient Mode of arrival: ambulatory - History of Present Illness Initial Comments: 33-year-old male presents with history of cyclic nausea and vomiting present today for chief complaint of abdominal pain nausea vomiting. Patient states his abdominal pain is minimal the abdomen very typical of his cyclic symptoms. Patient denies any change in characteristic describes as sharp constant. He states is a stabbing pain. Patient states he is also vomiting denies any hematemesis. He denies any fevers. Patient states he is on an trickling and h as been taking Zofran and promethazine and Reglan outpatient however he has not been able to keep down oral medications. Patient states he did express a similar episode last week however it seemed to go away for a short amount of time however returned for the past few days. Patient states usually is given pain medication and antacid and antinausea medications and this seems to the emergency department. Patient has no other complaints. He appears nontoxic upon arrival. - Related Data Home Medications Medication Instructions Recorded Confirmed Hydrocodone/Acetaminophen [[place] 1 tab PO Q6HR PRN 01/26/18 09/26/18 7.5-325] Omeprazole 20 mg PO DAILY 07/10/18 09/26/18 LORazepam [Ativan] 1 mg PO QID PRN 08/13/18 09/26/18 Previous Rx's Medication Instructions Recorded Amitriptyline HCl 50 mg PO HS #7 tab 12/16/17 Ondansetron Odt [Zofran ODT] 4 mg PO Q8HR PRN #10 tab 05/13/18 Allergies Allergy/AdvReac Type Severity Reaction Status Date / Time No Known Allergies Allergy Verified 10/03/18 16:50 Review of Systems ROS Statement: Those systems with pertinent positive or pertinent negative responses have been documented in the HPI. ROS Other: All systems not noted in ROS Statement are negative. Past Medical History Past Medical History: Asthma, GERD/Reflux Additional Past Medical History / Comment(s): cyclic vomiting syndrome, numbness/tingling bilateral feet when vomiting, low back pain/ruptured discs, occupational asthma, History of Any Multi-Drug Resistant Organisms: None Reported Past Surgical History: Adenoidectomy, Appendectomy, Cholecystectomy, Orthopedic Surgery, Tonsillectomy Additional Past Surgical History / Comment(s): EGD, ORIF bilateral ankles Past Anesthesia/Blood Transfusion Reactions: No Reported Reaction Past Psychological History: Anxiety Smoking Status: Former smoker Past Alcohol Use History: None Reported Past Drug Use History: Marijuana - Past Family History Father Family Medical History: No Reported History Mother Family Medical History: Diabetes Mellitus Additional Family Medical History / Comment(s): severe food allergies General Exam - General Exam Comments Initial Comments: General: The patient is awake and alert, in no distress, and does not appear acutely ill. Eye: +3 mm pupils are equal, round and reactive to light, extra-ocular movements are intact. No nystagmus. There is normal conjunctiva bilaterally. No signs of icterus. Ears, nose, mouth and throat: There are moist mucous membranes and no oral lesions. Neck: The neck is supple, there is no tenderness or JVD. Cardiovascular: There is a regular rate and rhythm. No murmur, rub or gallop is appreciated. Respiratory: Lungs are clear to auscultation, respirations are non-labored, breath sounds are equal. No wheezes, stridor, rales, or rhonchi. Gastrointestinal: Soft, non-distended, diffuse upper abdominal tenderness to deep palpation of abdomen without masses or organomegaly noted. There is no rebound or guarding present. No rigidity. Musculoskeletal: Normal ROM, no tenderness. Strength 5/5. Sensation intact. Radial pulses equal bilaterally 2+. Neurological: A&O x 3. CN II-XII intact grossly, There are no obvious motor or sensory deficits. Coordination appears grossly intact. Speech is normal. Skin: Skin is warm and dry and no rashes or lesions are noted. Psychiatric: Cooperative, appropriate mood & affect, normal judgment. Course Vital Signs 10/03/18 16:48 Temperature 99 F Pulse Rate 89 Respiratory 18 Rate Blood Pressure 159/91 O2 Sat by Pulse 99 Oximetry - Reevaluation(s) Reevaluation #1: Patient reevaluated, prefers discharge home. Offered admission for hydration, patient refused--stating symptoms controlled, pain near resolved. 10/03/18 19:51 Medical Decision Making - Medical Decision Making 33-year-old male presented for chief complaint vomiting, abdominal pain. Patient states there is no changes in his chronic symptoms. Patient had abdominal pain on initial exam. Repeat abdominal exam after medications patient has no pain. Patient was offered admission due to ketones in his urine. Patient was given IV hydration emergency. Laboratory studies stable. Patient refused and he would like to go home he is feeling better he states that he no longer has abdominal pain and the vomiting is controlled. I did discuss case with her provider who is agreeable to this care plan discharge at this time. - Lab Data Result diagrams: 10/03/18 17:18 10/03/18 17:18 Lab Results 10/03/18 10/03/18 10/03/18 Range/Units 17:18 17:18 18:15 WBC 12.9 H (3.8-10.6) k/uL RBC 5.54 (4.30-5.90) m/uL Hgb 16.3 (13.0-17.5) gm/dL Hct 47.7 (39.0-53.0) % MCV 86.0 (80.0-100.0) fL MCH 29.4 (25.0-35.0) pg MCHC 34.1 (31.0-37.0) g/dL RDW 12.9 (11.5-15.5) % Plt Count 399 (150-450) k/uL Neutrophils % 75 % Lymphocytes % 17 % Monocytes % 6 % Eosinophils % 1 % Basophils % 0 % Neutrophils # 9.7 H (1.3-7.7) k/uL Lymphocytes # 2.2 (1.0-4.8) k/uL Monocytes # 0.7 (0-1.0) k/uL Eosinophils # 0.1 (0-0.7) k/uL Basophils # 0.0 (0-0.2) k/uL Sodium 141 (137-145) mmol/L Potassium 3.8 (3.5-5.1) mmol/L Chloride 105 (98-107) mmol/L Carbon Dioxide 21 L (22-30) mmol/L Anion Gap 15 mmol/L BUN 15 (9-20) mg/dL Creatinine 0.84 (0.66-1.25) mg/dL Est GFR (CKD-EPI)AfAm >90 (>60 ml/min/1.73 sqM) Est GFR (CKD-EPI)NonAf >90 (>60 ml/min/1.73 sqM) Glucose 102 H (74-99) mg/dL Calcium 10.6 H (8.4-10.2) mg/dL Total Bilirubin 2.1 H (0.2-1.3) mg/dL AST 26 (17-59) U/L ALT 38 (21-72) U/L Alkaline Phosphatase 73 (38-126) U/L Total Protein 8.2 (6.3-8.2) g/dL Albumin 5.1 H (3.5-5.0) g/dL Amylase 60 (30-110) U/L Lipase 71 (23-300) U/L Urine Color Yellow Urine Appearance Clear (Clear) Urine pH 8.0 (5.0-8.0) Ur Specific [place] 1.035 (1.001-1.035) Urine Protein 1+ H (Negative) Urine Glucose (UA) Negative (Negative) Urine Ketones 4+ H (Negative) Urine Blood Negative (Negative) Urine Nitrite Negative (Negative) Urine Bilirubin Negative (Negative) Urine Urobilinogen 3.0 (<2.0) mg/dL Ur Leukocyte Esterase Negative (Negative) Urine WBC 2 (0-5) /hpf Amorphous Sediment Occasional H (None) /hpf Urine Mucus Moderate H (None) /hpf Disposition Clinical Impression: Abdominal pain, Cyclical vomiting, Dehydration Disposition: HOME SELF-CARE Condition: Good Instructions (If sedation given, give patient instructions): Cyclic Vomiting Syndrome (ED) Additional Instructions: Please use medication as discussed. Please follow-up with family doctor in the next 2 days. Please return to emergency room if the symptoms increase or worsen or for any other concerns. Is patient prescribed a controlled substance at d/c from ED?: No Referrals: Sher Lewis MD [Primary Care Provider] - 1-2 days Time of Disposition: 19:52
[2018-10-03 17:41] LABS: ALT 38 U/L (21-72); AST 26 U/L (17-59); African American GFR (CKD) >90 (>60 ml/min/1.73 sqM); Albumin 5.1 g/dL (3.5-5.0); Alkaline Phosphatase 73 U/L (38-126); Amylase 60 U/L (30-110); Anion Gap 15 mmol/L; Blood Urea Nitrogen 15 mg/dL (9-20); Calcium 10.6 mg/dL (8.4-10.2); Carbon Dioxide 21 mmol/L (22-30); Chloride 105 mmol/L (98-107); Glucose 102 mg/dL (74-99); Potassium 3.8 mmol/L (3.5-5.1); Sodium 141 mmol/L (137-145); Total Bilirubin 2.1 mg/dL (0.2-1.3); Total Protein 8.2 g/dL (6.3-8.2)
[2018-10-03] MEDS ORDERED: METOCLOPRAMIDE 5 MG/ML 2 ML VIAL IVP STA (18:23)
[2018-10-03] MEDS ORDERED: FAMOTIDINE 20 MG/2 ML VIAL IV STA (18:23)
[2018-10-03 18:27] LABS: Amorphous Sediment,Urine Occasional /hpf; Appearance,Urine Clear (Clear); Bilirubin,Urine Negative (Negative); Blood,Urine Negative (Negative); Color,Urine Yellow; Glucose,Urine (UA) Negative (Negative); Ketones,Urine 4+ (Negative); Leukocyte Esterase,Urine Negative (Negative); Mucus,Urine Moderate /hpf; Nitrite,Urine Negative (Negative); Protein,Urine 1+ (Negative); Specific Gravity,Urine 1.035 (1.001-1.035); WBC,Urine 2 /hpf (0-5)
[2018-10-03] MEDS ORDERED: SODIUM CHLORIDE 0.9% 1,000 ML IV ONE (19:28)
[2018-10-03 20:57] VITALS: BP 144/83; PULSE 79; TEMP 98
[2018-10-03] MEDS ORDERED: HYDROmorphone 1 MG/ML 1 ML SYRINGE IVP STA (20:58)
== END 2018-10-03 21:41 | disposition home or self-care (01) ==
LOC: EC 16:45
DX: E86.0 Dehydration (principal); G43.A0 Cyclical vomiting, in migraine, not intractable; R10.9 Unspecified abdominal pain; R82.4 Acetonuria; K21.9 Gastro-esophageal reflux disease without esophagitis; Z79.899 Other long term (current) drug therapy; Z53.29 Procedure and treatment not carried out because of patient's decision for other reasons; Z87.891 Personal history of nicotine dependence; Z90.49 Acquired absence of other specified parts of digestive tract
CPT/HCPCS: 36415; 80053; 82150; 83690; 85025; 81001; 99284; 96374; 96375 ×3; 96376 ×2; 96361; J2765; J2405; J1170 ×2

== ENCOUNTER 2018-10-06 09:19 | Emergency (ER) | payer OTHER ==
[2018-10-06] MEDS ORDERED: SODIUM CHLORIDE 0.9% 1,000 ML IV STA ×2 (09:38→09:44)
[2018-10-06] MEDS ORDERED: ONDANSETRON 4 MG/2 ML VIAL IVP STA (09:38)
[2018-10-06] MEDS ORDERED: HYDROmorphone 0.5 MG/0.5 ML SYRINGE IVP STA (09:38)
[2018-10-06] MEDS ORDERED: FAMOTIDINE 20 MG/2 ML VIAL IV STA (09:39)
--- NOTE | 2018-10-06 09:48 | ED ---
General Adult HPI - General Chief complaint: Abdominal Pain Stated complaint: Abd pain Time Seen by Provider: 10/06/18 09:26 Source: patient, RN notes reviewed Limitations: no limitations - History of Present Illness Initial comments: 33-year-old male with a past medical history of asthma, GERD, cyclic vomiting syndrome presents to the emergency department for a chief complaint of nausea vomiting and abdominal pain. States that he has had nausea and vomiting for several days. States that he started to have recurrent abdominal pain today. States it is in the upper abdomen. States his pain is exactly consistent with his cyclic vomiting syndrome. States he is here today for pain relief and antiemetic medication. Patient has no other complaints at this time including s hortness of breath, chest pain, abdominal pain, nausea or vomiting, headache, or visual changes. - Related Data Home Medications Medication Instructions Recorded Confirmed Hydrocodone/Acetaminophen [[place] 1 tab PO Q6HR PRN 01/26/18 10/06/18 7.5-325] Omeprazole 20 mg PO DAILY 07/10/18 10/06/18 LORazepam [Ativan] 1 mg PO QID PRN 08/13/18 10/06/18 Previous Rx's Medication Instructions Recorded Amitriptyline HCl 50 mg PO HS #7 tab 12/16/17 Ondansetron Odt [Zofran ODT] 4 mg PO Q8HR PRN #10 tab 05/13/18 Allergies Allergy/AdvReac Type Severity Reaction Status Date / Time No Known Allergies Allergy Verified 10/06/18 09:30 Review of Systems ROS Statement: Those systems with pertinent positive or pertinent negative responses have been documented in the HPI. ROS Other: All systems not noted in ROS Statement are negative. Past Medical History Past Medical History: Asthma, GERD/Reflux Additional Past Medical History / Comment(s): cyclic vomiting syndrome, numbness/tingling bilateral feet when vomiting, low back pain/ruptured discs, occupational asthma, History of Any Multi-Drug Resistant Organisms: None Reported Past Surgical History: Adenoidectomy, Appendectomy, Cholecystectomy, Orthopedic Surgery, Tonsillectomy Additional Past Surgical History / Comment(s): EGD, ORIF bilateral ankles Past Anesthesia/Blood Transfusion Reactions: No Reported Reaction Past Psychological History: Anxiety Smoking Status: Former smoker Past Alcohol Use History: None Reported Past Drug Use History: Marijuana - Past Family History Father Family Medical History: No Reported History Mother Family Medical History: Diabetes Mellitus Additional Family Medical History / Comment(s): severe food allergies General Exam Limitations: no limitations General appearance: alert, in no apparent distress Head exam: Present: atraumatic, normocephalic, normal inspection Eye exam: Present: normal appearance. Absent: PERRL, EOMI, scleral icterus, conjunctival injection ENT exam: Present: normal exam, mucous membranes moist Neck exam: Present: normal inspection, full ROM. Absent: tenderness, meningismus, lymphadenopathy Respiratory exam: Present: normal lung sounds bilaterally. Absent: respiratory distress, wheezes, rales, rhonchi, stridor Cardiovascular Exam: Present: regular rate, normal rhythm, normal heart sounds. Absent: systolic murmur, diastolic murmur, rubs, gallop, clicks GI/Abdominal exam: Present: soft, tenderness (Generalized upper abdominal tenderness including right upper quadrant epigastric and left upper quadrant. No lower abdominal tenderness.), normal bowel sounds. Absent: distended, guarding, rebound, rigid Neurological exam: Present: alert Psychiatric exam: Present: normal affect, normal mood Course Vital Signs 10/06/18 10/06/18 09:20 11:53 Temperature 98.3 F 98.5 F Pulse Rate 72 77 Respiratory 18 16 Rate Blood Pressure 137/92 126/79 O2 Sat by Pulse 98 99 Oximetry Medical Decision Making - Medical Decision Making 33-year-old male with a past medical history cyclic vomiting syndrome presents to the emergency department for a chief complaint of nausea and vomiting as well as abdominal pain. States the symptoms all feel exactly consistent with previous episodes of cyclic vomiting. States he has consistently been having nausea and vomiting at home but that his abdominal pain recurred today. On exam patient has diffuse nonspecific upper abdominal tenderness. X-ray shows a borderline dilated small bowel loops measuring up to 3 cm, ileus or enteritis is favored over small bowel obstruction. Mild elevation in white blood cell likely secondary to vomiting. CMP is unremarkable. Urine is negative for ketones or evidence of infection. Recent UDS was reviewed, patient was positive for marij uana which could be contributing. Patient is stable at this time, vomiting is controlled. Pain has improved although denies resolution. However at this time significantly patient more pain medication. Patient will be discharged home to follow up with primary care. He'll return if he has any worsening symptoms. - Lab Data Result diagrams: 10/06/18 10:30 10/06/18 10:30 Lab Results 10/06/18 10/06/18 10/06/18 Range/Units 10:30 10:30 10:30 WBC 11.8 H (3.8-10.6) k/uL RBC 5.43 (4.30-5.90) m/uL Hgb 16.1 (13.0-17.5) gm/dL Hct 46.4 (39.0-53.0) % MCV 85.5 (80.0-100.0) fL MCH 29.6 (25.0-35.0) pg MCHC 34.6 (31.0-37.0) g/dL RDW 15.1 (11.5-15.5) % Plt Count 377 (150-450) k/uL Neutrophils % 78 % Lymphocytes % 16 % Monocytes % 4 % Eosinophils % 1 % Basophils % 0 % Neutrophils # 9.3 H (1.3-7.7) k/uL Lymphocytes # 1.9 (1.0-4.8) k/uL Monocytes # 0.4 (0-1.0) k/uL Eosinophils # 0.1 (0-0.7) k/uL Basophils # 0.0 (0-0.2) k/uL Sodium 143 (137-145) mmol/L Potassium 4.2 (3.5-5.1) mmol/L Chloride 105 (98-107) mmol/L Carbon Dioxide 26 (22-30) mmol/L Anion Gap 12 mmol/L BUN 9 (9-20) mg/dL Creatinine 0.79 (0.66-1.25) mg/dL Est GFR (CKD-EPI)AfAm >90 (>60 ml/min/1.73 sqM) Est GFR (CKD-EPI)NonAf >90 (>60 ml/min/1.73 sqM) Glucose 109 H (74-99) mg/dL Calcium 10.6 H (8.4-10.2) mg/dL Total Bilirubin 1.1 (0.2-1.3) mg/dL AST 21 (17-59) U/L ALT 40 (21-72) U/L Alkaline Phosphatase 64 (38-126) U/L Total Protein 8.2 (6.3-8.2) g/dL Albumin 5.0 (3.5-5.0) g/dL Amylase 69 (30-110) U/L Lipase 92 (23-300) U/L Urine Color Yellow Urine Appearance Clear (Clear) Urine pH 6.5 (5.0-8.0) Ur Specific [place] 1.026 (1.001-1.035) Urine Protein Trace H (Negative) Urine Glucose (UA) Negative (Negative) Urine Ketones Negative (Negative) Urine Blood Trace H (Negative) Urine Nitrite Negative (Negative) Urine Bilirubin Negative (Negative) Urine Urobilinogen <2.0 (<2.0) mg/dL Ur Leukocyte Esterase Negative (Negative) Urine RBC 2 (0-5) /hpf Urine WBC 1 (0-5) /hpf Amorphous Sediment Occasional H (None) /hpf Urine Mucus Rare H (None) /hpf Urine Sperm Rare (None) /hpf Disposition Clinical Impression: Cyclic vomiting syndrome, Nausea and vomiting, Cannabinoid hyperemesis syndrome Disposition: HOME SELF-CARE Condition: Good Instructions (If sedation given, give patient instructions): Acute Nausea and Vomiting (ED) Additional Instructions: Please follow up with primary care in 1-2 days. Return here to the emergency department if you have any worsening symptoms. Is patient prescribed a controlled substance at d/c from ED?: No Referrals: Sher Lewis MD [Primary Care Provider] - 1-2 days Time of Disposition: 12:27
--- NOTE | 2018-10-06 10:20 | XR ---
EXAMINATION TYPE: XR KUB DATE OF EXAM: 10/06/2018 CLINICAL DATA: 33-year-old male with abdominal pain. COMPARISON: 09/26/2018 FINDINGS: Lung bases are clear. No evidence for free intraperitoneal air. Small bowel loops particularly on the left side of the abdomen are borderline dilated measuring up to 3.0 cm. There may be a few scattered air-fluid levels. Scattered colonic air remains on the right an d also within the rectum. Cholecystectomy clips. No suspicious calcifications seen. IMPRESSION: 1. Borderline dilated small bowel loops on the left measuring up to 3.0 cm with a few small air-fluid levels. As air remains in the colon and rectum, regional ileus or enteritis is favored over small ruperto wel obstruction. Short interval follow-up may be helpful. 2. No free air.
[2018-10-06 10:46] LABS: Basophils % (A) 0 %; Eosinophils # (A) 0.1 k/uL (0-0.7); Eosinophils % (A) 1 %; HCT 46.4 % (39.0-53.0); HGB 16.1 gm/dL (13.0-17.5); Lymphocytes # (A) 1.9 k/uL (1.0-4.8); Lymphocytes % (A) 16 %; MCH 29.6 pg (25.0-35.0); MCHC 34.6 g/dL (31.0-37.0); MCV 85.5 fL (80.0-100.0); Mean Platelet Volume 7.5; Monocytes # (A) 0.4 k/uL (0-1.0); Monocytes % (A) 4 %; Neutrophils # (A) 9.3 k/uL (1.3-7.7); Neutrophils % (A) 78 %; Platelet Count 377 k/uL (150-450); RBC 5.43 m/uL (4.30-5.90); RDW 15.1 % (11.5-15.5); WBC 11.8 k/uL (3.8-10.6)
[2018-10-06 10:53] LABS: Amorphous Sediment,Urine Occasional /hpf; Appearance,Urine Clear (Clear); Bilirubin,Urine Negative (Negative); Blood,Urine Trace (Negative); Color,Urine Yellow; Glucose,Urine (UA) Negative (Negative); Ketones,Urine Negative (Negative); Leukocyte Esterase,Urine Negative (Negative); Mucus,Urine Rare /hpf; Nitrite,Urine Negative (Negative); PH, Urine 6.5 (5.0-8.0); Protein,Urine Trace (Negative); RBC,Urine 2 /hpf (0-5); Specific Gravity,Urine 1.026 (1.001-1.035); Sperm,Urine Rare /hpf; Urobilinogen,Urine <2.0 mg/dL (<2.0); WBC,Urine 1 /hpf (0-5)
[2018-10-06 10:56] LABS: ALT 40 U/L (21-72); AST 21 U/L (17-59); African American GFR (CKD) >90 (>60 ml/min/1.73 sqM); Alkaline Phosphatase 64 U/L (38-126); Amylase 69 U/L (30-110); Anion Gap 12 mmol/L; Blood Urea Nitrogen 9 mg/dL (9-20); Calcium 10.6 mg/dL (8.4-10.2); Carbon Dioxide 26 mmol/L (22-30); Chloride 105 mmol/L (98-107); Glucose 109 mg/dL (74-99); Potassium 4.2 mmol/L (3.5-5.1); Sodium 143 mmol/L (137-145); Total Bilirubin 1.1 mg/dL (0.2-1.3); Total Protein 8.2 g/dL (6.3-8.2)
[2018-10-06] MEDS ORDERED: KETOROLAC 30 MG/ML 1 ML VIAL IVP STA (11:10)
[2018-10-06] MEDS ORDERED: METOCLOPRAMIDE 5 MG/ML 2 ML VIAL IVP STA (11:41)
[2018-10-06] MEDS ORDERED: diphenhydrAMINE 50 MG/ML 1 ML VIAL IVP STA (11:41)
[2018-10-06 11:55] VITALS: BP 126/79; PULSE 77; RESP 16; TEMP 98.5
== END 2018-10-06 12:40 | disposition home or self-care (01) ==
LOC: EC 09:19
DX: G43.A0 Cyclical vomiting, in migraine, not intractable (principal); F12.988 Cannabis use, unspecified with other cannabis-induced disorder; T40.7X5A Adverse effect of cannabis (derivatives), initial encounter; F41.9 Anxiety disorder, unspecified; Z79.899 Other long term (current) drug therapy; Z87.891 Personal history of nicotine dependence; Z90.49 Acquired absence of other specified parts of digestive tract; Z90.89 Acquired absence of other organs
CPT/HCPCS: 36415; 80053; 82150; 83690; 85025; 81001; 74018; 99284; 96374; 96375 ×5; 96361 ×2; J1200; J2765; J2405; J1885; J1170

== ENCOUNTER 2019-01-05 14:25 | Emergency (ER) | payer OTHER ==
[2019-01-05 14:38] VITALS: TEMP 98.2
[2019-01-05] MEDS ORDERED: HYDROmorphone 1 MG/ML 1 ML SYRINGE IVP STA ×2 (14:43→16:01)
[2019-01-05] MEDS ORDERED: SODIUM CHLORIDE 0.9% 500 ML 500 ML IV STA (14:43)
[2019-01-05] MEDS ORDERED: ONDANSETRON 4 MG/2 ML VIAL IVP STA (14:43)
[2019-01-05] MEDS ORDERED: SODIUM CHLORIDE 0.9% 1,000 ML IV STA (14:43)
[2019-01-05] MEDS ORDERED: LORazepam 2 MG/ML INJ IV STA (14:44)
--- NOTE | 2019-01-05 14:47 | ED ---
Abdominal Pain HPI - General Source: patient Mode of arrival: ambulatory Limitations: no limitations <Yanely Trevino - Last Filed: 01/05/19 18:25> <Page Duckworth - Last Filed: 01/08/19 02:24> - General Chief Complaint: Abdominal Pain Stated Complaint: VOMITING Time Seen by Provider: 01/05/19 14:39 - History of Present Illness Initial Comments: 33-year-old male patient with past medical history significant for cyclic vomiting syndrome and chronic abdominal pain presents to the emergency department today for evaluation of vomiting and abdominal pain. Patient states that he started having symptoms around 9 or 10:00 this morning. States he is having right upper quadrant pain radiating through to his back. States he is unable to keep down any food or fluids. States he has vomited several times. Denies constipation or diarrhea. Patient states his symptoms are consistent with his usual pain and vomiting pattern. States he is unable to keep down any medication but he did attempt to take Zofran at home. Denies any alcohol use. Does admit to smoking marijuana. Has had appendectomy and cholecystectomy in the past. Denies any recent travel or sick contacts. Patient denies any recent rash, shortness breath, chest pain, numbness, tingling, dizziness, weakness, hematuria, dysuria, urinary urgency, urinary frequency, headache, visual changes, or any other complaints. (Yanely Trevino) - Related Data Home Medications Medication Instructions Recorded Confirmed Hydrocodone/Acetaminophen [[place] 1 tab PO Q6HR PRN 01/26/18 10/06/18 7.5-325] Omeprazole 20 mg PO DAILY 07/10/18 10/06/18 LORazepam [Ativan] 1 mg PO QID PRN 08/13/18 10/06/18 Previous Rx's Medication Instructions Recorded Amitriptyline HCl 50 mg PO HS #7 tab 12/16/17 Ondansetron Odt [Zofran ODT] 4 mg PO Q8HR PRN #10 tab 05/13/18 Allergies Allergy/AdvReac Type Severity Reaction Status Date / Time No Known Allergies Allergy Verified 10/06/18 09:30 Review of Systems ROS Other: All systems not noted in ROS Statement are negative. <Yanely Trevino - Last Filed: 01/05/19 18:25> ROS Other: All systems not noted in ROS Statement are negative. <Page Duckworth - Last Filed: 01/08/19 02:24> ROS Statement: Those systems with pertinent positive or pertinent negative responses have been documented in the HPI. Past Medical History Past Medical History: Asthma, GERD/Reflux Additional Past Medical History / Comment(s): cyclic vomiting syndrome, numbness/tingling bilateral feet when vomiting, low back pain/ruptured discs, occupational asthma, History of Any Multi-Drug Resistant Organisms: None Reported Past Surgical History: Adenoidectomy, Appendectomy, Cholecystectomy, Orthopedic Surgery, Tonsillectomy Additional Past Surgical History / Comment(s): EGD, ORIF bilateral ankles Past Anesthesia/Blood Transfusion Reactions: No Reported Reaction Past Psychological History: Anxiety Smoking Status: Former smoker Past Alcohol Use History: None Reported Past Drug Use History: Marijuana - Past Family History Father Family Medical History: No Reported History Mother Family Medical History: Diabetes Mellitus Additional Family Medical History / Comment(s): severe food allergies <Yanely Trevino - Last Filed: 01/05/19 18:25> General Exam Limitations: no limitations General appearance: alert, in no apparent distress, other (Physical well- developed, well-nourished adult male patient in mild distress related to pain. Vital signs upon presentation are temperature 98.2F, pulse 93, respirations 18, blood pressure 142/90, pulse ox 100% on room air.) Eye exam: Present: normal appearance, PERRL, EOMI. Absent: scleral icterus, conjunctival injection, periorbital swelling ENT exam: Present: normal exam, normal oropharynx, mucous membranes moist Respiratory exam: Present: normal lung sounds bilaterally. Absent: respiratory distress, wheezes, rales, rhonchi, stridor Cardiovascular Exam: Present: regular rate, normal rhythm, normal heart sounds. Absent: systolic murmur, diastolic murmur, rubs, gallop, clicks GI/Abdominal exam: Present: soft, tenderness (Generalized), normal bowel sounds. Absent: distended, guarding, rebound, rigid Neurological exam: Present: alert, oriented X3, CN II-XII intact Psychiatric exam: Present: normal affect, normal mood Skin exam: Present: warm, dry, intact, pallor. Absent: rash <Yanely Trevino - Last Filed: 01/05/19 18:25> Course Vital Signs 01/05/19 01/05/19 14:35 16:22 Temperature 98.2 F Pulse Rate 93 79 Respiratory 18 16 Rate Blood Pressure 142/90 134/108 O2 Sat by Pulse 100 100 Oximetry Medical Decision Making - Lab Data Result diagrams: 01/05/19 14:46 01/05/19 14:46 <Yanely Trevino - Last Filed: 01/05/19 18:25> - Lab Data Result diagrams: 01/05/19 14:46 01/05/19 14:46 <Page Duckworth - Last Filed: 01/08/19 02:24> - Medical Decision Making 33-year-old male patient with past medical history significant for cyclic vomiting syndrome and chronic abdominal pain presents to the emergency department today for increase in his symptoms since 9 AM. Physical examination revealed soft abdomen with generalized tenderness. Labs reviewed and revealed elevated white blood cell count most likely reactive from vomiting. Was unable to provide a urine sample. Refused x-ray. Did receive several pain medication nausea medications while here. Upon reevaluation is resting comfortably in bed. States the symptoms have improved. He will be discharged this time to follow- up with his primary care physician for recheck in 1-2 days. Return parameters were discussed in detail. He verbalizes understanding and agrees with this plan. (Yanely Trevino) I was available for consultation in the emergency department. The history and physical exam were done by the midlevel provider. I was consulted for this patients care. I reviewed the case with the midlevel provider and based on their presentation of the patient, I agree with the assessment, medical decision making and plan of care as documented. Chart was dictated using [employer] dictation software. Attempts were made to correct any dictation errors however some typographical errors may persist. (Page Duckworth) - Lab Data Lab Results 01/05/19 01/05/19 01/05/19 Range/Units 14:46 14:46 14:47 WBC 12.2 H (3.8-10.6) k/uL RBC 5.75 (4.30-5.90) m/uL Hgb 17.3 (13.0-17.5) gm/dL Hct 50.1 (39.0-53.0) % MCV 87.1 (80.0-100.0) fL MCH 30.1 (25.0-35.0) pg MCHC 34.5 (31.0-37.0) g/dL RDW 12.6 (11.5-15.5) % Plt Count 443 (150-450) k/uL Neutrophils % 85 % Lymphocytes % 11 % Monocytes % 3 % Eosinophils % 0 % Basophils % 0 % Neutrophils # 10.4 H (1.3-7.7) k/uL Lymphocytes # 1.4 (1.0-4.8) k/uL Monocytes # 0.3 (0-1.0) k/uL Eosinophils # 0.0 (0-0.7) k/uL Basophils # 0.0 (0-0.2) k/uL Sodium 142 (137-145) mmol/L Potassium 3.8 (3.5-5.1) mmol/L Chloride 104 (98-107) mmol/L Carbon Dioxide 24 (22-30) mmol/L Anion Gap 14 mmol/L BUN 15 (9-20) mg/dL Creatinine 0.96 (0.66-1.25) mg/dL Est GFR (CKD-EPI)AfAm >90 (>60 ml/min/1.73 sqM) Est GFR (CKD-EPI)NonAf >90 (>60 ml/min/1.73 sqM) Glucose 134 H (74-99) mg/dL Calcium 11.4 H (8.4-10.2) mg/dL Total Bilirubin 1.7 H (0.2-1.3) mg/dL AST 21 (17-59) U/L ALT 26 (21-72) U/L Alkaline Phosphatase 88 (38-126) U/L Total Protein 8.8 H (6.3-8.2) g/dL Albumin 5.5 H (3.5-5.0) g/dL Amylase 62 (30-110) U/L Lipase 83 (23-300) U/L Urine Color Dark Yellow Urine Appearance Cloudy (Clear) Urine pH 6.0 (5.0-8.0) Ur Specific [place] 1.048 H (1.001-1.035) Urine Protein 2+ H (Negative) Urine Glucose (UA) Negative (Negative) Urine Ketones 3+ H (Negative) Urine Blood Small H (Negative) Urine Nitrite Negative (Negative) Urine Bilirubin 1+ H (Negative) Urine Urobilinogen 2.0 (<2.0) mg/dL Ur Leukocyte Esterase Negative (Negative) Urine RBC 8 H (0-5) /hpf Urine WBC 4 (0-5) /hpf Ur Squamous Epith Cells <1 (0-4) /hpf Urine Bacteria Rare H (None) /hpf Urine Mucus Many H (None) /hpf Disposition Is patient prescribed a controlled substance at d/c from ED?: No Time of Disposition: 18:17 <Yanely Trevino - Last Filed: 01/05/19 18:25> <Page Duckworth - Last Filed: 01/08/19 02:24> Clinical Impression: Abdominal pain, Vomiting Disposition: HOME SELF-CARE Condition: Good Instructions (If sedation given, give patient instructions): Acute Nausea and Vomiting (ED), Abdominal Pain (ED) Additional Instructions: Increase fluids. Start clear liquid diet and advance as tolerated. Take all medications as directed. Follow up through primary care physician for recheck in 1-2 days. Return to the emergency department immediately for any new, worsening, or concerning symptoms. Referrals: Sher Lewis MD [Primary Care Provider] - 1-2 days
[2019-01-05 15:17] LABS: Basophils % (A) 0 %; Eosinophils % (A) 0 %; HCT 50.1 % (39.0-53.0); HGB 17.3 gm/dL (13.0-17.5); Lymphocytes # (A) 1.4 k/uL (1.0-4.8); Lymphocytes % (A) 11 %; MCH 30.1 pg (25.0-35.0); MCHC 34.5 g/dL (31.0-37.0); MCV 87.1 fL (80.0-100.0); Mean Platelet Volume 7.1; Monocytes # (A) 0.3 k/uL (0-1.0); Monocytes % (A) 3 %; Neutrophils # (A) 10.4 k/uL (1.3-7.7); Neutrophils % (A) 85 %; Platelet Count 443 k/uL (150-450); RBC 5.75 m/uL (4.30-5.90); RDW 12.6 % (11.5-15.5); WBC 12.2 k/uL (3.8-10.6)
[2019-01-05 15:21] LABS: Appearance,Urine Cloudy (Clear); Bacteria,Urine Rare /hpf; Bilirubin,Urine 1+ (Negative); Blood,Urine Small (Negative); Color,Urine Dark Yellow; Glucose,Urine (UA) Negative (Negative); Ketones,Urine 3+ (Negative); Leukocyte Esterase,Urine Negative (Negative); Mucus,Urine Many /hpf; Nitrite,Urine Negative (Negative); Protein,Urine 2+ (Negative); RBC,Urine 8 /hpf (0-5); Squamous Epithelial Cell,Urine <1 /hpf (0-4)
[2019-01-05 15:24] LABS: ALT 26 U/L (21-72); AST 21 U/L (17-59); African American GFR (CKD) >90 (>60 ml/min/1.73 sqM); Albumin 5.5 g/dL (3.5-5.0); Alkaline Phosphatase 88 U/L (38-126); Amylase 62 U/L (30-110); Anion Gap 14 mmol/L; Blood Urea Nitrogen 15 mg/dL (9-20); Calcium 11.4 mg/dL (8.4-10.2); Carbon Dioxide 24 mmol/L (22-30); Chloride 104 mmol/L (98-107); Glucose 134 mg/dL (74-99); Non-African American GFR(CKD) >90 (>60 ml/min/1.73 sqM); Potassium 3.8 mmol/L (3.5-5.1); Sodium 142 mmol/L (137-145); Total Bilirubin 1.7 mg/dL (0.2-1.3); Total Protein 8.8 g/dL (6.3-8.2)
[2019-01-05 15:54] LABS: Specific Gravity,Urine 1.048 (1.001-1.035)
[2019-01-05] MEDS ORDERED: METOCLOPRAMIDE 5 MG/ML 2 ML VIAL IVP STA (16:01)
[2019-01-05] MEDS ORDERED: diphenhydrAMINE 50 MG/ML 1 ML VIAL IVP STA (16:01)
[2019-01-05] MEDS ORDERED: KETOROLAC 30 MG/ML 1 ML VIAL IVP STA (16:01)
[2019-01-05 16:25] VITALS: BP 134/108; PULSE 79; RESP 16
[2019-01-05] MEDS ORDERED: HYDROmorphone 0.5 MG/0.5 ML SYRINGE IVP STA (17:19)
[2019-01-05] MEDS ORDERED: FAMOTIDINE 20 MG/2 ML VIAL IV STA (17:19)
== END 2019-01-05 18:42 | disposition home or self-care (01) ==
LOC: EC 14:25
DX: R11.10 Vomiting, unspecified (principal); R10.11 Right upper quadrant pain; D72.829 Elevated white blood cell count, unspecified; R23.1 Pallor; M54.9 Dorsalgia, unspecified; K21.9 Gastro-esophageal reflux disease without esophagitis; Z87.891 Personal history of nicotine dependence; Z79.899 Other long term (current) drug therapy; Z87.19 Personal history of other diseases of the digestive system; Z90.49 Acquired absence of other specified parts of digestive tract; Z53.20 Procedure and treatment not carried out because of patient's decision for unspecified reasons
CPT/HCPCS: 36415; 80053; 82150; 83690; 85025; 81001; 99284; 96374; 96375 ×6; 96376 ×2; 96361 ×2; J2060; J1200; J2765; J2405; J1885; J1170 ×2

== ENCOUNTER 2019-02-22 18:19 | Emergency (ER) | payer OTHER ==
[2019-02-22 18:26] VITALS: RESP 22; TEMP 97.9
[2019-02-22] MEDS ORDERED: PANTOPRAZOLE 40 MG/10 ML VIAL IVP STA (18:53)
[2019-02-22] MEDS ORDERED: DICYCLOMINE 10 MG/ML 2 ML AMP IM STA (18:53)
[2019-02-22] MEDS ORDERED: SODIUM CHLORIDE 0.9% 1,000 ML IV STA (18:53)
[2019-02-22] MEDS ORDERED: KETOROLAC 30 MG/ML 1 ML VIAL IVP STA (18:53)
[2019-02-22] MEDS ORDERED: LORazepam 2 MG/ML INJ IV STA (18:56)
[2019-02-22] MEDS ORDERED: HYDROmorphone 0.5 MG/0.5 ML SYRINGE IVP STA (18:56)
--- NOTE | 2019-02-22 20:19 | ED ---
Abdominal Pain HPI - General Chief Complaint: Abdominal Pain Stated Complaint: vomiting/abd pain Time Seen by Provider: 02/22/19 18:38 Source: patient Mode of arrival: ambulatory Limitations: no limitations - History of Present Illness Initial Comments: Patient is a 33-year-old male with history of cyclic vomiting syndrome presenting to emergency Department with a chief complaint of abdominal pain nausea vomiting. Patient states he's had many bouts with flareups of his condition. Patient states this is what the typical flareups consist of. Patien t states typically Zofran, fluids, Dilaudid and Ativan help abort the cycle. Patient states that he takes amitriptyline for his condition. Patient denies hematemesis, hematuria, hematochezia or melena. States the pain is mostly located on the right side of his abdomen and epigastric region. Denies any penile pain, discharge, testicular pain or swelling. Denies taking any medication to alleviate his symptoms. - Related Data Home Medications Medication Instructions Recorded Confirmed Hydrocodone/Acetaminophen [[place] 1 tab PO Q6HR PRN 01/26/18 10/06/18 7.5-325] Omeprazole 20 mg PO DAILY 07/10/18 10/06/18 LORazepam [Ativan] 1 mg PO QID PRN 08/13/18 10/06/18 Previous Rx's Medication Instructions Recorded Amitriptyline HCl 50 mg PO HS #7 tab 12/16/17 Ondansetron Odt [Zofran ODT] 4 mg PO Q8HR PRN #10 tab 05/13/18 Allergies Allergy/AdvReac Type Severity Reaction Status Date / Time No Known Allergies Allergy Verified 02/22/19 18:26 Review of Systems ROS Statement: Those systems with pertinent positive or pertinent negative responses have been documented in the HPI. ROS Other: All systems not noted in ROS Statement are negative. Past Medical History Past Medical History: Asthma, GERD/Reflux Additional Past Medical History / Comment(s): cyclic vomiting syndrome, numbness/tingling bilateral feet when vomiting, low back pain/ruptured discs, occupational asthma, History of Any Multi-Drug Resistant Organisms: None Reported Past Surgical History: Adenoidectomy, Appendectomy, Cholecystectomy, Orthopedic Surgery, Tonsillectomy Additional Past Surgical History / Comment(s): EGD, ORIF bilateral ankles Past Anesthesia/Blood Transfusion Reactions: No Reported Reaction Past Psychological History: Anxiety Smoking Status: Former smoker Past Alcohol Use History: None Reported Past Drug Use History: Marijuana - Past Family History Father Family Medical History: No Reported History Mother Family Medical History: Diabetes Mellitus Additional Family Medical History / Comment(s): severe food allergies General Exam Limitations: no limitations General appearance: alert, in distress Head exam: Present: atraumatic, normocephalic, normal inspection Eye exam: Present: normal appearance, PERRL, EOMI Pupils: Present: normal accommodation ENT exam: Present: normal exam, mucous membranes moist Neck exam: Present: normal inspection, full ROM Respiratory exam: Present: normal lung sounds bilaterally Cardiovascular Exam: Present: regular rate, normal rhythm, normal heart sounds GI/Abdominal exam: Present: soft, tenderness (Right upper quadrant, right lower quadrant, epigastric left upper quadrant. Negative Claros.). Absent: distended, guarding, rebound, rigid Extremities exam: Present: normal inspection, full ROM Back exam: Present: normal inspection, full ROM Neurological exam: Present: alert, oriented X3 Psychiatric exam: Present: normal affect, normal mood Skin exam: Present: warm, dry, intact, normal color Course Vital Signs 02/22/19 02/22/19 18:24 21:17 Temperature 97.9 F 97.9 F Pulse Rate 70 77 Respiratory 22 22 Rate Blood Pressure 146/98 135/78 O2 Sat by Pulse 100 100 Oximetry Medical Decision Making - Medical Decision Making Patient is a 33-year-old male with history of cyclic vomiting syndrome presenting to emergency Department with a chief complaint of nausea vomiting abdominal pain. On examination patient continues to be vomiting and has moderate to severe abdominal pain. Patient states this is exactly how his flareups typically are. Patient states after he was started on amitriptyline he has decreased flareups. Patient was given fluids, antiemetics, anxiolytics analgesia. A reevaluation patient reports significant improvement in his symptoms. CBC shows leukocytosis which I suspect is secondary to the repetitive vomiting. Patient vised to follow with primary care. Strict return parameters were thoroughly discussed with patient was understanding and agreeable. Case di scussed with physician. - Lab Data Result diagrams: 02/22/19 19:45 02/22/19 19:45 Lab Results 02/22/19 02/22/19 Range/Units 19:45 19:45 WBC 12.6 H (3.8-10.6) k/uL RBC 5.02 (4.30-5.90) m/uL Hgb 14.7 (13.0-17.5) gm/dL Hct 44.1 (39.0-53.0) % MCV 87.8 (80.0-100.0) fL MCH 29.4 (25.0-35.0) pg MCHC 33.4 (31.0-37.0) g/dL RDW 12.5 (11.5-15.5) % Plt Count 404 (150-450) k/uL Neutrophils % 85 % Lymphocytes % 11 % Monocytes % 3 % Eosinophils % 0 % Basophils % 1 % Neutrophils # 10.7 H (1.3-7.7) k/uL Lymphocytes # 1.3 (1.0-4.8) k/uL Monocytes # 0.4 (0-1.0) k/uL Eosinophils # 0.0 (0-0.7) k/uL Basophils # 0.1 (0-0.2) k/uL Sodium 141 (137-145) mmol/L Potassium 3.8 (3.5-5.1) mmol/L Chloride 107 (98-107) mmol/L Carbon Dioxide 22 (22-30) mmol/L Anion Gap 12 mmol/L BUN 11 (9-20) mg/dL Creatinine 0.79 (0.66-1.25) mg/dL Est GFR (CKD-EPI)AfAm >90 (>60 ml/min/1.73 sqM) Est GFR (CKD-EPI)NonAf >90 (>60 ml/min/1.73 sqM) Glucose 97 (74-99) mg/dL Calcium 10.3 H (8.4-10.2) mg/dL Total Bilirubin 1.1 (0.2-1.3) mg/dL AST 23 (17-59) U/L ALT 23 (4-49) U/L Alkaline Phosphatase 76 (38-126) U/L Total Protein 8.2 (6.3-8.2) g/dL Albumin 5.1 H (3.5-5.0) g/dL Amylase 56 (30-110) U/L Lipase 51 (23-300) U/L Disposition Clinical Impression: Nausea & vomiting, Abdominal pain Disposition: HOME SELF-CARE Condition: Stable Instructions (If sedation given, give patient instructions): Abdominal Pain (ED) Additional Instructions: Please follow up with primary care. Continue taking Zofran at home if she experienced nausea. Please return to emergency department if symptoms worsen. Is patient prescribed a controlled substance at d/c from ED?: No Referrals: Sher Lewis MD [Primary Care Provider] - 1-2 days Time of Disposition: 21:38
[2019-02-22 20:36] LABS: Basophils # (A) 0.1 k/uL (0-0.2); Basophils % (A) 1 %; Eosinophils % (A) 0 %; HCT 44.1 % (39.0-53.0); HGB 14.7 gm/dL (13.0-17.5); Lymphocytes # (A) 1.3 k/uL (1.0-4.8); Lymphocytes % (A) 11 %; MCH 29.4 pg (25.0-35.0); MCHC 33.4 g/dL (31.0-37.0); MCV 87.8 fL (80.0-100.0); Mean Platelet Volume 7.8; Monocytes # (A) 0.4 k/uL (0-1.0); Monocytes % (A) 3 %; Neutrophils # (A) 10.7 k/uL (1.3-7.7); Neutrophils % (A) 85 %; Platelet Count 404 k/uL (150-450); RBC 5.02 m/uL (4.30-5.90); RDW 12.5 % (11.5-15.5); WBC 12.6 k/uL (3.8-10.6)
[2019-02-22 20:45] LABS: ALT 23 U/L (4-49); AST 23 U/L (17-59); African American GFR (CKD) >90 (>60 ml/min/1.73 sqM); Albumin 5.1 g/dL (3.5-5.0); Alkaline Phosphatase 76 U/L (38-126); Amylase 56 U/L (30-110); Anion Gap 12 mmol/L; Blood Urea Nitrogen 11 mg/dL (9-20); Calcium 10.3 mg/dL (8.4-10.2); Carbon Dioxide 22 mmol/L (22-30); Chloride 107 mmol/L (98-107); Glucose 97 mg/dL (74-99); Non-African American GFR(CKD) >90 (>60 ml/min/1.73 sqM); Potassium 3.8 mmol/L (3.5-5.1); Sodium 141 mmol/L (137-145); Total Bilirubin 1.1 mg/dL (0.2-1.3); Total Protein 8.2 g/dL (6.3-8.2)
[2019-02-22 21:19] VITALS: BP 135/78; PULSE 77
== END 2019-02-22 21:50 | disposition home or self-care (01) ==
LOC: EC 18:19
DX: R10.13 Epigastric pain (principal); R11.2 Nausea with vomiting, unspecified; D72.829 Elevated white blood cell count, unspecified; K21.9 Gastro-esophageal reflux disease without esophagitis; Z87.891 Personal history of nicotine dependence; Z79.899 Other long term (current) drug therapy; Z90.49 Acquired absence of other specified parts of digestive tract; Z53.8 Procedure and treatment not carried out for other reasons
CPT/HCPCS: 36415; 80053; 82150; 83690; 85025; 99284; 96374; 96375 ×2; 96361 ×2; 96372; J2060; J0500; C9113; J1170

== ENCOUNTER 2019-03-22 10:28 | Emergency (ER) | payer OTHER ==
[2019-03-22 10:34] VITALS: TEMP 98
[2019-03-22] MEDS ORDERED: SODIUM CHLORIDE 0.9% 500 ML 500 ML IV STA (10:36)
[2019-03-22] MEDS ORDERED: SODIUM CHLORIDE 0.9% 1,000 ML IV STA (10:36)
[2019-03-22] MEDS ORDERED: SODIUM CHLORIDE 0.9% 1,000 ML IV ONE (10:40)
[2019-03-22] MEDS ORDERED: LORazepam 2 MG/ML INJ IV STA (10:40)
[2019-03-22] MEDS ORDERED: PANTOPRAZOLE 40 MG/10 ML VIAL IVP STA (10:40)
[2019-03-22] MEDS ORDERED: HYDROmorphone 0.5 MG/0.5 ML SYRINGE IVP STA ×2 (10:40→12:19)
[2019-03-22] MEDS ORDERED: SODIUM CHLORIDE 0.9% 500 ML 500 ML IV ONE (10:40)
[2019-03-22] MEDS ORDERED: ONDANSETRON 4 MG/2 ML VIAL IVP STA (10:40)
[2019-03-22] MEDS ORDERED: SODIUM CHLORIDE 0.9% 1,000 ML IV SCH (10:45)
[2019-03-22 11:11] LABS: Basophils # (A) 0.1 k/uL (0-0.2); Basophils % (A) 0 %; Eosinophils # (A) 0.1 k/uL (0-0.7); Eosinophils % (A) 1 %; HCT 48.4 % (39.0-53.0); HGB 16.4 gm/dL (13.0-17.5); Lymphocytes # (A) 1.4 k/uL (1.0-4.8); Lymphocytes % (A) 9 %; MCH 30.3 pg (25.0-35.0); MCHC 33.9 g/dL (31.0-37.0); MCV 89.5 fL (80.0-100.0); Mean Platelet Volume 7.6; Monocytes # (A) 0.5 k/uL (0-1.0); Monocytes % (A) 3 %; Neutrophils # (A) 13.7 k/uL (1.3-7.7); Neutrophils % (A) 86 %; Platelet Count 406 k/uL (150-450); RBC 5.41 m/uL (4.30-5.90); RDW 12.8 % (11.5-15.5); WBC 15.9 k/uL (3.8-10.6)
--- NOTE | 2019-03-22 11:13 | ED ---
Abdominal Pain HPI - General Chief Complaint: Abdominal Pain Stated Complaint: abdominal pain Time Seen by Provider: 03/22/19 10:36 Source: patient Mode of arrival: ambulatory Limitations: no limitations - History of Present Illness Initial Comments: 34-year-old male presenting today for chief complaint of abdominal pain vomiting occurring for the past 3 hours. Patient states he has history of cyclic vomiting is currently on 100 mg [place] dad seem to be helping. Patient states 3 hours ago he had identical symptoms that he has had in the past denies any changes in characteristic of the pain. Patient denies any hematemesis melena hematochezia. Denies fevers, back pain, chest pain, shortness of breath, denies lower abdominal pain including the RLQ. Patient states the discomfort is usually the RUQ/epigastric regions. Patient denies any other complaints UPon arrival patient vomiting. VS within acceptable limits - Related Data Home Medications Medication Instructions Recorded Confirmed Hydrocodone/Acetaminophen [[place] 1 tab PO Q6HR PRN 01/26/18 10/06/18 7.5-325] Omeprazole 20 mg PO DAILY 07/10/18 10/06/18 LORazepam [Ativan] 1 mg PO QID PRN 08/13/18 10/06/18 Previous Rx's Medication Instructions Recorded Amitriptyline HCl 50 mg PO HS #7 tab 12/16/17 Ondansetron Odt [Zofran ODT] 4 mg PO Q8HR PRN #10 tab 05/13/18 Allergies Allergy/AdvReac Type Severity Reaction Status Date / Time No Known Allergies Allergy Verified 03/22/19 10:31 Review of Systems ROS Statement: Those systems with pertinent positive or pertinent negative responses have been documented in the HPI. ROS Other: All systems not noted in ROS Statement are negative. Past Medical History Past Medical History: Asthma, GERD/Reflux Additional Past Medical History / Comment(s): cyclic vomiting syndrome, numbness/tingling bilateral feet when vomiting, low back pain/ruptured discs, occupational asthma, History of Any Multi-Drug Resistant Organisms: None Reported Past Surgical History: Adenoidectomy, Appendectomy, Cholecystectomy, Orthopedic Surgery, Tonsillectomy Additional Past Surgical History / Comment(s): EGD, ORIF bilateral ankles, cyclic vomiting Past Anesthesia/Blood Transfusion Reactions: No Reported Reaction Past Psychological History: Anxiety Smoking Status: Former smoker Past Alcohol Use History: None Reported Past Drug Use History: Marijuana - Past Family History Father Family Medical History: No Reported History Mother Family Medical History: Diabetes Mellitus Additional Family Medical History / Comment(s): severe food allergies General Exam - General Exam Comments Initial Comments: General: The patient is awake and alert, in no distress Eye: +3 mm pupils are equal, round and reactive to light, extra-ocular movements are intact. No nystagmus. There is normal conjunctiva bilaterally. No signs of icterus. Ears, nose, mouth and throat: There are moist mucous membranes and no oral lesions. Neck: The neck is supple, there is no tenderness or JVD. Cardiovascular: There is a regular rate and rhythm. No murmur, rub or gallop is appreciated. Respiratory: Lungs are clear to auscultation, respirations are non-labored, breath sounds are equal. No wheezes, stridor, rales, or rhonchi. Gastrointestinal: Soft, non-distended, mild tenderness to palpation of the upper abdomen, (-) murphys sign. Remaining abdomen is nontender, without masses or organomegaly noted. There is no rebound or guarding present. Musculoskeletal: Normal ROM, no tenderness. Strength 5/5. Sensation intact. Radial pulses equal bilaterally 2+. Neurological: A&O x 3. CN II-XII intact grossly, There are no obvious motor or sensory deficits. Coordination appears grossly intact. Speech is normal. Skin: Skin is warm and dry and no rashes or lesions are noted. No LE edema. Psychiatric: Cooperative, appropriate mood & affect, normal judgment. Limitations: no limitations Course Vital Signs 03/22/19 03/22/19 10:31 12:30 Temperature 98 F Pulse Rate 71 88 Respiratory 18 16 Rate Blood Pressure 126/55 139/71 O2 Sat by Pulse 100 99 Oximetry - Reevaluation(s) Reevaluation #1: Patient reevaluated, states he is now not vomiting, less nausea, admit to decreased pain but is still present. Will given additional dose of pain medication and reevaluate. 03/22/19 12:20 Medical Decision Making - Medical Decision Making 34-year-old male presenting for vomiting history of cyclic vomiting patient states the characters identical to past flares of cyclic vomiting in the past. Patient states he is unable to tolerate his oral Zofran and that is why presents to emergency department. Symptoms have been ongoing for past 3 hours. Patient has a mild upper abdominal pain he states this is the very typical of these episodes. Patient states that Ativan Dilaudid Zofran typically help with his symptoms. Patient is provided this antiemetic/analgesic combination, as long with a Protonix. Patient on reevaluation states he is feeling much better he still had some residual pain patient given additional dose of Dilaudid upon second reevaluation patient states that he is feeling much better he he states he believes he is able to go home and follow-up with GI and primary care provider. Patient appears well no signs of acute distress looked her studies were stable aside from leukocytosis which most likely is reactive secondary to patient's dry heaving and vomiting. No fevers.Case attending provider Dr. Thompson who is agreeable to care plan discharge at this time. Return parameters were discussed with patient prior to discharge. - Lab Data Result diagrams: 03/22/19 10:47 03/22/19 10:47 Lab Results 03/22/19 03/22/19 03/22/19 Range/Units 10:47 10:47 11:28 WBC 15.9 H (3.8-10.6) k/uL RBC 5.41 (4.30-5.90) m/uL Hgb 16.4 (13.0-17.5) gm/dL Hct 48.4 (39.0-53.0) % MCV 89.5 (80.0-100.0) fL MCH 30.3 (25.0-35.0) pg MCHC 33.9 (31.0-37.0) g/dL RDW 12.8 (11.5-15.5) % Plt Count 406 (150-450) k/uL Neutrophils % 86 % Lymphocytes % 9 % Monocytes % 3 % Eosinophils % 1 % Basophils % 0 % Neutrophils # 13.7 H (1.3-7.7) k/uL Lymphocytes # 1.4 (1.0-4.8) k/uL Monocytes # 0.5 (0-1.0) k/uL Eosinophils # 0.1 (0-0.7) k/uL Basophils # 0.1 (0-0.2) k/uL Sodium 141 (137-145) mmol/L Potassium 4.4 (3.5-5.1) mmol/L Chloride 104 (98-107) mmol/L Carbon Dioxide 26 (22-30) mmol/L Anion Gap 11 mmol/L BUN 14 (9-20) mg/dL Creatinine 0.77 (0.66-1.25) mg/dL Est GFR (CKD-EPI)AfAm >90 (>60 ml/min/1.73 sqM) Est GFR (CKD-EPI)NonAf >90 (>60 ml/min/1.73 sqM) Glucose 123 H (74-99) mg/dL Calcium 10.9 H (8.4-10.2) mg/dL Total Bilirubin 1.1 (0.2-1.3) mg/dL AST 23 (17-59) U/L ALT 26 (4-49) U/L Alkaline Phosphatase 79 (38-126) U/L Total Protein 8.7 H (6.3-8.2) g/dL Albumin 5.4 H (3.5-5.0) g/dL Amylase 68 (30-110) U/L Lipase 91 (23-300) U/L Urine Color Yellow Urine Appearance Clear (Clear) Urine pH 7.5 (5.0-8.0) Ur Specific [place] 1.032 (1.001-1.035) Urine Protein 1+ H (Negative) Urine Glucose (UA) Negative (Negative) Urine Ketones 1+ H (Negative) Urine Blood Trace H (Negative) Urine Nitrite Negative (Negative) Urine Bilirubin Negative (Negative) Urine Urobilinogen <2.0 (<2.0) mg/dL Ur Leukocyte Esterase Negative (Negative) Urine RBC 5 (0-5) /hpf Urine WBC 1 (0-5) /hpf Ur Squamous Epith Cells <1 (0-4) /hpf Urine Mucus Occasional H (None) /hpf Disposition Clinical Impression: Vomiting, Nausea, Abdominal pain Disposition: HOME SELF-CARE Condition: Good Instructions (If sedation given, give patient instructions): Abdominal Pain (ED), Cyclic Vomiting Syndrome (ED) Additional Instructions: Please use medication as discussed. Please follow-up with family doctor in the next 2 days. Please return to emergency room if the symptoms increase or worsen or for any other concerns. Is patient prescribed a controlled substance at d/c from ED?: No Referrals: Sher Lewis MD [Primary Care Provider] - 1-2 days Time of Disposition: 12:51
[2019-03-22 11:21] LABS: ALT 26 U/L (4-49); AST 23 U/L (17-59); African American GFR (CKD) >90 (>60 ml/min/1.73 sqM); Albumin 5.4 g/dL (3.5-5.0); Alkaline Phosphatase 79 U/L (38-126); Amylase 68 U/L (30-110); Anion Gap 11 mmol/L; Blood Urea Nitrogen 14 mg/dL (9-20); Calcium 10.9 mg/dL (8.4-10.2); Carbon Dioxide 26 mmol/L (22-30); Chloride 104 mmol/L (98-107); Glucose 123 mg/dL (74-99); Non-African American GFR(CKD) >90 (>60 ml/min/1.73 sqM); Potassium 4.4 mmol/L (3.5-5.1); Sodium 141 mmol/L (137-145); Total Bilirubin 1.1 mg/dL (0.2-1.3); Total Protein 8.7 g/dL (6.3-8.2)
[2019-03-22 11:43] LABS: Appearance,Urine Clear (Clear); Bilirubin,Urine Negative (Negative); Blood,Urine Trace (Negative); Color,Urine Yellow; Glucose,Urine (UA) Negative (Negative); Ketones,Urine 1+ (Negative); Leukocyte Esterase,Urine Negative (Negative); Mucus,Urine Occasional /hpf; Nitrite,Urine Negative (Negative); PH, Urine 7.5 (5.0-8.0); Protein,Urine 1+ (Negative); RBC,Urine 5 /hpf (0-5); Specific Gravity,Urine 1.032 (1.001-1.035); Squamous Epithelial Cell,Urine <1 /hpf (0-4); Urobilinogen,Urine <2.0 mg/dL (<2.0); WBC,Urine 1 /hpf (0-5)
--- NOTE | 2019-03-22 12:12 | XR ---
EXAMINATION TYPE: XR abdomen acute w cxr DATE OF EXAM: 03/22/2019 COMPARISON: NONE HISTORY: Abdominal pain and vomiting TECHNIQUE: Single frontal view of the chest and 2 views of the abdomen were obtained FINDINGS: No focal consolidation, pleural effusion or pneumothorax is seen within the lungs. Cardiomediastinal silhouette is within normal limits. Osseous structures are grossly intact. Possible punctate bone isl and in the right humeral head. Cholecystectomy clips are seen. Osseous structures are intact. No dilated large or small bowel. Overa ll paucity of bowel gas. No pneumoperitoneum. Phleboliths incidentally noted within the pelvis. IMPRESSION: No acute cardiopulmonary process. Nonobstructed bowel gas pattern.
[2019-03-22 13:14] VITALS: BP 139/71; PULSE 88; RESP 16
== END 2019-03-22 13:07 | disposition home or self-care (01) ==
LOC: EC 10:28
DX: R10.11 Right upper quadrant pain (principal); R11.2 Nausea with vomiting, unspecified; R10.13 Epigastric pain; D72.829 Elevated white blood cell count, unspecified; K21.9 Gastro-esophageal reflux disease without esophagitis; F41.9 Anxiety disorder, unspecified; Z79.899 Other long term (current) drug therapy; Z87.891 Personal history of nicotine dependence; Z90.49 Acquired absence of other specified parts of digestive tract; Z87.19 Personal history of other diseases of the digestive system
CPT/HCPCS: 99284; 96374; 96375 ×3; 96376; 96361; 36415; 80053; 82150; 83690; 85025; 81001; 74022; J2060; J2405; C9113; J1170

== ENCOUNTER 2019-03-22 17:52 | Emergency (ER) | payer OTHER ==
[2019-03-22] MEDS ORDERED: SODIUM CHLORIDE 0.9% 500 ML 500 ML IV ONE (18:08)
[2019-03-22] MEDS ORDERED: FAMOTIDINE 20 MG/2 ML VIAL IV STA (18:08)
[2019-03-22] MEDS ORDERED: HYDROmorphone 1 MG/ML 1 ML SYRINGE IVP STA ×3 (18:08→20:31)
[2019-03-22] MEDS ORDERED: ONDANSETRON 4 MG/2 ML VIAL IVP STA (18:08)
--- NOTE | 2019-03-22 20:06 | ED ---
Abdominal Pain HPI - General Chief Complaint: Abdominal Pain Stated Complaint: Abd pain Time Seen by Provider: 03/22/19 18:00 Source: patient Mode of arrival: ambulatory Limitations: no limitations - History of Present Illness Initial Comments: 34-year-old male patient with past medical history significant for cyclic vomiting syndrome presents to the emergency department today for evaluation of right upper quadrant abdominal pain and vomiting. This is the patient's second visit today for similar symptoms. He states that he was in earlier today and treated. States that time of discharge he was feeling better however about an hour and a half after arriving home his symptoms returned. Patient states he is again vomiting is unable stop. He denies any fever or chills. Denies any constipation or diarrhea. Denies any hematemesis. Patient states his symptoms are consistent with his usual cyclic vomiting pattern. Patient denies any recent rash, shortness breath, chest pain, diarrhea, constipation, back pain, numbness, tingling, dizziness, weakness, hematuria, dysuria, urinary urgency, urinary frequency, headache, visual changes, or any other complaints. Patient has had cholecystectomy and appendectomy. - Related Data Home Medications Medication Instructions Recorded Confirmed Hydrocodone/Acetaminophen [[place] 1 tab PO Q6HR PRN 01/26/18 10/06/18 7.5-325] Omeprazole 20 mg PO DAILY 07/10/18 10/06/18 LORazepam [Ativan] 1 mg PO QID PRN 08/13/18 10/06/18 Previous Rx's Medication Instructions Recorded Amitriptyline HCl 50 mg PO HS #7 tab 12/16/17 Ondansetron Odt [Zofran ODT] 4 mg PO Q8HR PRN #10 tab 05/13/18 Allergies Allergy/AdvReac Type Severity Reaction Status Date / Time No Known Allergies Allergy Verified 03/22/19 10:31 Review of Systems ROS Statement: Those systems with pertinent positive or pertinent negative responses have been documented in the HPI. ROS Other: All systems not noted in ROS Statement are negative. Past Medical History Past Medical History: Asthma, GERD/Reflux Additional Past Medical History / Comment(s): cyclic vomiting syndrome, numbness/tingling bilateral feet when vomiting, low back pain/ruptured discs, occupational asthma, History of Any Multi-Drug Resistant Organisms: None Reported Past Surgical History: Adenoidectomy, Appendectomy, Cholecystectomy, Orthopedic Surgery, Tonsillectomy Additional Past Surgical History / Comment(s): EGD, ORIF bilateral ankles, cyclic vomiting Past Anesthesia/Blood Transfusion Reactions: No Reported Reaction Past Psychological History: Anxiety Smoking Status: Former smoker Past Alcohol Use History: None Reported Past Drug Use History: Marijuana - Past Family History Father Family Medical History: No Reported History Mother Family Medical History: Diabetes Mellitus Additional Family Medical History / Comment(s): severe food allergies General Exam Limitations: no limitations General appearance: alert, in no apparent distress, other (This is a well- developed, well-nourished adult male patient in mild distress related to pain.) Eye exam: Present: normal appearance, PERRL, EOMI. Absent: scleral icterus, conjunctival injection, periorbital swelling Respiratory exam: Present: normal lung sounds bilaterally. Absent: respiratory distress, wheezes, rales, rhonchi, stridor Cardiovascular Exam: Present: regular rate, normal rhythm, normal heart sounds. Absent: systolic murmur, diastolic murmur, rubs, gallop, clicks GI/Abdominal exam: Present: soft, tenderness (Right upper and left upper quadrant tenderness), normal bowel sounds. Absent: distended, guarding, rebound, rigid Neurological exam: Present: alert, oriented X3, CN II-XII intact Psychiatric exam: Present: normal affect, normal mood Skin exam: Present: warm, dry, intact, normal color. Absent: rash Course Vital Signs 03/22/19 03/22/19 20:10 20:51 Temperature 97.8 F Pulse Rate 110 H 96 Respiratory 18 18 Rate Blood Pressure 112/73 120/70 O2 Sat by Pulse 100 100 Oximetry Medical Decision Making - Medical Decision Making 34-year-old male patient with past medical history significant for cyclic vomiting syndrome and chronic abdominal pain presents to the emergency department today for evaluation of abdominal pain and vomiting. Physical examination does reveal right upper quadrant tenderness. Patient was seen here earlier today did have labs performed. There was elevated white blood cell count which is most likely reactive from vomiting. Patient started to have symptoms approximate hour and a half after arriving home. Patient had IV started, was given IV nausea and pain medication. Upon reevaluation he does report improvement of symptoms however pain is still present. He would like to attempt going home. She'll be given 1 more dose of pain medication be discharged to follow up with his primary care physician for recheck in 1-2 days. Return parameters were discussed in detail. He verbalizes understanding and agrees with this plan. Disposition Clinical Impression: Abdominal pain, Cyclic vomiting syndrome Disposition: HOME SELF-CARE Condition: Good Instructions (If sedation given, give patient instructions): Abdominal Pain (ED), Cyclic Vomiting Syndrome (ED) Additional Instructions: Start with clear liquid diet and advance as tolerated. Follow-up with primary care physician for recheck in 1-2 days. Return to the emergency department immediately for any new, worsening, or concerning symptoms. Is patient prescribed a controlled substance at d/c from ED?: No Referrals: Sher Lewis MD [Primary Care Provider] - 1-2 days Time of Disposition: 20:32
[2019-03-22 21:11] VITALS: BP 120/70; PULSE 96; RESP 18; TEMP 97.8
== END 2019-03-22 21:00 | disposition home or self-care (01) ==
LOC: EC 17:52
DX: R11.15 Cyclical vomiting syndrome unrelated to migraine (principal); G89.29 Other chronic pain; R10.9 Unspecified abdominal pain; D72.829 Elevated white blood cell count, unspecified; F41.9 Anxiety disorder, unspecified; K21.9 Gastro-esophageal reflux disease without esophagitis; Z79.899 Other long term (current) drug therapy; Z98.890 Other specified postprocedural states; Z87.891 Personal history of nicotine dependence; Z90.49 Acquired absence of other specified parts of digestive tract
CPT/HCPCS: 99284; 96374; 96375 ×2; 96376 ×2; 96361; J2405; J1170

== ENCOUNTER 2019-04-29 16:17 | Emergency (ER) | payer OTHER ==
[2019-04-29] MEDS ORDERED: SODIUM CHLORIDE 0.9% 1,000 ML IV STA (16:29)
[2019-04-29] MEDS ORDERED: HYDROmorphone 1 MG/ML 1 ML SYRINGE IVP STA ×2 (16:30→17:18)
[2019-04-29] MEDS ORDERED: ONDANSETRON 4 MG/2 ML VIAL IVP STA (16:30)
[2019-04-29] MEDS ORDERED: KETOROLAC 30 MG/ML 1 ML VIAL IVP STA (16:30)
--- NOTE | 2019-04-29 16:35 | ED ---
General Adult HPI - General Chief complaint: Nausea/Vomiting/Diarrhea Stated complaint: Vomiting Time Seen by Provider: 04/29/19 16:23 Source: patient, RN notes reviewed Mode of arrival: ambulatory Limitations: no limitations - History of Present Illness Initial comments: 34-year-old male well-known to this emergency department for cyclic vomiting syndrome presents for nausea vomiting and abdominal pain. Patient states he has upper abdominal pain which is exactly consistent with previous episodes of cyclic vomiting. States this just started today. States he has been vomiting very frequently today. Patient denies fevers or chills. Denies diarr hea.Patient has no other complaints at this time including shortness of breath, chest pain, headache, or visual changes. - Related Data Home Medications Medication Instructions Recorded Confirmed Hydrocodone/Acetaminophen [[place] 1 tab PO Q6HR PRN 01/26/18 10/06/18 7.5-325] Omeprazole 20 mg PO DAILY 07/10/18 10/06/18 LORazepam [Ativan] 1 mg PO QID PRN 08/13/18 10/06/18 Previous Rx's Medication Instructions Recorded Amitriptyline HCl 50 mg PO HS #7 tab 12/16/17 Ondansetron Odt [Zofran ODT] 4 mg PO Q8HR PRN #10 tab 05/13/18 Allergies Allergy/AdvReac Type Severity Reaction Status Date / Time No Known Allergies Allergy Verified 03/22/19 10:31 Review of Systems ROS Statement: Those systems with pertinent positive or pertinent negative responses have been documented in the HPI. ROS Other: All systems not noted in ROS Statement are negative. Past Medical History Past Medical History: Asthma, GERD/Reflux Additional Past Medical History / Comment(s): cyclic vomiting syndrome, numbness/tingling bilateral feet when vomiting, low back pain/ruptured discs, occupational asthma, History of Any Multi-Drug Resistant Organisms: None Reported Past Surgical History: Adenoidectomy, Appendectomy, Cholecystectomy, Orthopedic Surgery, Tonsillectomy Additional Past Surgical History / Comment(s): EGD, ORIF bilateral ankles, cyclic vomiting Past Anesthesia/Blood Transfusion Reactions: No Reported Reaction Past Psychological History: Anxiety Smoking Status: Former smoker Past Alcohol Use History: None Reported Past Drug Use History: Marijuana - Past Family History Father Family Medical History: No Reported History Mother Family Medical History: Diabetes Mellitus Additional Family Medical History / Comment(s): severe food allergies General Exam Limitations: no limitations General appearance: alert, in no apparent distress Head exam: Present: atraumatic, normocephalic, normal inspection Eye exam: Present: normal appearance, PERRL, EOMI. Absent: scleral icterus, conjunctival injection, periorbital swelling ENT exam: Present: normal exam, mucous membranes moist Neck exam: Present: normal inspection. Absent: tenderness, meningismus, lymphadenopathy Respiratory exam: Present: normal lung sounds bilaterally. Absent: respiratory distress, wheezes, rales, rhonchi, stridor Cardiovascular Exam: Present: regular rate, normal rhythm, normal heart sounds. Absent: systolic murmur, diastolic murmur, rubs, gallop, clicks GI/Abdominal exam: Present: soft, tenderness (Generalized abdominal tenderness, mild in nature. No guarding or rebound.), normal bowel sounds. Absent: distended, guarding, rebound, rigid Neurological exam: Present: alert Course Vital Signs 04/29/19 04/29/19 16:27 18:11 Temperature 97.9 F 97.8 F Pulse Rate 93 74 Respiratory 18 18 Rate Blood Pressure 138/112 154/85 O2 Sat by Pulse 100 100 Oximetry Medical Decision Making - Medical Decision Making Patient is a well known 34-year-old male with a past medical history of cyclic vomiting syndrome who presents for nausea vomiting and abdominal pain. All symptoms are consistent with his chronic cyclic vomiting syndrome. CBC shows mild leukocytosis likely reactive from vomiting. CMP is unremarkable. X-ray KUB shows an overall nonobstructive bowel gas pattern. 2+ ketones, patient given IV fluids. Urinalysis is positive for marijuana. After several different medications pt is feeling somewhat better. Patient is no longer vomiting. I discussed with patient that his use of marijuana is likely contributing to his cyclic vomiting episodes and he states he has been told this before and understands but continues to smoke marijuana. I offered to try capsacin cream with patient however she refuses stating this causes burning sensation to his skin too much and would prefer to go home. Patient was discharged in stable condition. I did discuss with the patient that he should return to the emergency department should he have any worsening symptoms.I discussed this case with attending Dr. Florian who agrees with this assessment and treatment plan. - Lab Data Result diagrams: 04/29/19 16:52 04/29/19 16:52 Lab Results 04/29/19 04/29/19 04/29/19 Range/Units 16:52 16:52 18:28 WBC 12.3 H (3.8-10.6) k/uL RBC 5.13 (4.30-5.90) m/uL Hgb 15.4 (13.0-17.5) gm/dL Hct 44.9 (39.0-53.0) % MCV 87.6 (80.0-100.0) fL MCH 30.0 (25.0-35.0) pg MCHC 34.2 (31.0-37.0) g/dL RDW 12.4 (11.5-15.5) % Plt Count 402 (150-450) k/uL Neutrophils % 75 % Lymphocytes % 17 % Monocytes % 4 % Eosinophils % 2 % Basophils % 0 % Neutrophils # 9.2 H (1.3-7.7) k/uL Lymphocytes # 2.1 (1.0-4.8) k/uL Monocytes # 0.5 (0-1.0) k/uL Eosinophils # 0.2 (0-0.7) k/uL Basophils # 0.0 (0-0.2) k/uL Sodium 139 (137-145) mmol/L Potassium 4.0 (3.5-5.1) mmol/L Chloride 102 (98-107) mmol/L Carbon Dioxide 31 H (22-30) mmol/L Anion Gap 6 mmol/L BUN 12 (9-20) mg/dL Creatinine 0.82 (0.66-1.25) mg/dL Est GFR (CKD-EPI)AfAm >90 (>60 ml/min/1.73 sqM) Est GFR (CKD-EPI)NonAf >90 (>60 ml/min/1.73 sqM) Glucose 100 H (74-99) mg/dL Calcium 10.3 H (8.4-10.2) mg/dL Total Bilirubin 0.9 (0.2-1.3) mg/dL AST 26 (17-59) U/L ALT 32 (4-49) U/L Alkaline Phosphatase 75 (38-126) U/L Total Protein 8.3 H (6.3-8.2) g/dL Albumin 5.3 H (3.5-5.0) g/dL Amylase 61 (30-110) U/L Lipase 87 (23-300) U/L Urine Color Yellow Urine Appearance Cloudy (Clear) Urine pH 8.5 H (5.0-8.0) Ur Specific [place] 1.021 (1.001-1.035) Urine Protein Trace H (Negative) Urine Glucose (UA) Negative (Negative) Urine Ketones 2+ H (Negative) Urine Blood Negative (Negative) Urine Nitrite Negative (Negative) Urine Bilirubin Negative (Negative) Urine Urobilinogen <2.0 (<2.0) mg/dL Ur Leukocyte Esterase Negative (Negative) Urine RBC 2 (0-5) /hpf Urine WBC <1 (0-5) /hpf Urine Mucus Rare H (None) /hpf Urine Opiates Screen Detected H (NotDetected) Ur Oxycodone Screen Not Detected (NotDetected) Urine Methadone Screen Not Detected (NotDetected) Ur Propoxyphene Screen Not Detected (NotDetected) Ur Barbiturates Screen Not Detected (NotDetected) U Tricyclic Antidepress Detected H (NotDetected) Ur Phencyclidine Scrn Not Detected (NotDetected) Ur Amphetamines Screen Not Detected (NotDetected) U Methamphetamines Scrn Not Detected (NotDetected) U Benzodiazepines Scrn Not Detected (NotDetected) Urine Cocaine Screen Not Detected (NotDetected) U Marijuana (THC) Screen Detected H (NotDetected) Disposition Clinical Impression: Cyclic vomiting syndrome, Marijuana use Disposition: HOME SELF-CARE Condition: Good Instructions (If sedation given, give patient instructions): Acute Nausea and Vomiting (ED) Additional Instructions: Refrain from smoking marijuana. Please follow up with primary care in 1-2 days. Return to the emergency department for any worsening symptoms. Is patient prescribed a controlled substance at d/c from ED?: No Referrals: Sher Lewis MD [Primary Care Provider] - 1-2 days Time of Disposition: 19:11
[2019-04-29 17:10] LABS: Basophils % (A) 0 %; Eosinophils # (A) 0.2 k/uL (0-0.7); Eosinophils % (A) 2 %; HCT 44.9 % (39.0-53.0); HGB 15.4 gm/dL (13.0-17.5); Lymphocytes # (A) 2.1 k/uL (1.0-4.8); Lymphocytes % (A) 17 %; MCHC 34.2 g/dL (31.0-37.0); MCV 87.6 fL (80.0-100.0); Mean Platelet Volume 7.7; Monocytes # (A) 0.5 k/uL (0-1.0); Monocytes % (A) 4 %; Neutrophils # (A) 9.2 k/uL (1.3-7.7); Neutrophils % (A) 75 %; Platelet Count 402 k/uL (150-450); RBC 5.13 m/uL (4.30-5.90); RDW 12.4 % (11.5-15.5); WBC 12.3 k/uL (3.8-10.6)
[2019-04-29 17:11] LABS: ALT 32 U/L (4-49); AST 26 U/L (17-59); African American GFR (CKD) >90 (>60 ml/min/1.73 sqM); Albumin 5.3 g/dL (3.5-5.0); Alkaline Phosphatase 75 U/L (38-126); Amylase 61 U/L (30-110); Anion Gap 6 mmol/L; Blood Urea Nitrogen 12 mg/dL (9-20); Calcium 10.3 mg/dL (8.4-10.2); Carbon Dioxide 31 mmol/L (22-30); Chloride 102 mmol/L (98-107); Glucose 100 mg/dL (74-99); Non-African American GFR(CKD) >90 (>60 ml/min/1.73 sqM); Sodium 139 mmol/L (137-145); Total Bilirubin 0.9 mg/dL (0.2-1.3); Total Protein 8.3 g/dL (6.3-8.2)
[2019-04-29] MEDS ORDERED: FAMOTIDINE 20 MG/2 ML VIAL IV STA (17:25)
[2019-04-29 18:11] VITALS: PULSE 74
[2019-04-29] MEDS ORDERED: HALOPERIDOL LACTATE 5 MG/ML 1 ML VIAL IVP STA (18:13)
[2019-04-29] MEDS ORDERED: diphenhydrAMINE 50 MG/ML 1 ML VIAL IVP STA (18:13)
[2019-04-29] MEDS ORDERED: METOCLOPRAMIDE 5 MG/ML 2 ML VIAL IVP STA (18:13)
--- NOTE | 2019-04-29 18:55 | XR ---
EXAMINATION TYPE: XR KUB DATE OF EXAM: 04/29/2019 6:45 PM CLINICAL HISTORY: Vomiting and abdominal pain. TECHNIQUE: Two Upright KUB images of the abdomen are obtained. COMPARISON: Acute abdominal series March 22, 2019. CT abdomen and pelvis July 10, 2018. FINDINGS: Air-fluid level in nondistended stomach. Scattered gas is seen in non-distended small and l arge bowel loops. Cholecystectomy clips are redemonstrated. Lung bases are clear. No pneumoperitoneum . Osseous structures are intact. IMPRESSION: Overall nonobstructive bowel gas pattern.
[2019-04-29 18:56] LABS: Amphetamine Screen,Urine Not Detected (NotDetected); Appearance,Urine Cloudy (Clear); Barbiturate Screen,Urine Not Detected (NotDetected); Benzodiazepines Screen,Urine Not Detected (NotDetected); Bilirubin,Urine Negative (Negative); Blood,Urine Negative (Negative); Cocaine Screen,Urine Not Detected (NotDetected); Color,Urine Yellow; Glucose,Urine (UA) Negative (Negative); Ketones,Urine 2+ (Negative); Leukocyte Esterase,Urine Negative (Negative); Methadone Screen, Urine Not Detected (NotDetected); Mucus,Urine Rare /hpf; Nitrite,Urine Negative (Negative); Opiate Screen,Urine Detected (NotDetected); Oxycodone Screen, Urine Not Detected (NotDetected); PH, Urine 8.5 (5.0-8.0); Phencyclidine Screen,Urine Not Detected (NotDetected); Protein,Urine Trace (Negative); RBC,Urine 2 /hpf (0-5); Specific Gravity,Urine 1.021 (1.001-1.035); Tricyclic Antidepressant,Urine Detected (NotDetected); Urn Cannabinoid Scrn Detected (NotDetected); Urobilinogen,Urine <2.0 mg/dL (<2.0); WBC,Urine <1 /hpf (0-5)
[2019-04-29] MEDS ORDERED: HYDROmorphone 0.5 MG/0.5 ML SYRINGE IVP STA (19:08)
[2019-04-29 19:20] VITALS: BP 151/84; RESP 15; TEMP 98.1
== END 2019-04-29 19:19 | disposition home or self-care (01) ==
LOC: EC 16:17
DX: R11.15 Cyclical vomiting syndrome unrelated to migraine (principal); F12.90 Cannabis use, unspecified, uncomplicated; K21.9 Gastro-esophageal reflux disease without esophagitis; F41.9 Anxiety disorder, unspecified; Z79.899 Other long term (current) drug therapy; Z87.891 Personal history of nicotine dependence
CPT/HCPCS: 36415; 80053; 82150; 83690; 85025; 81001; 80306; 74018; 99284; 96374; 96375 ×6; 96376 ×2; 96361; J1200; J1630; J2765; J2405; J1885; J1170 ×2

== ENCOUNTER 2019-05-09 23:28 | Emergency (ER) | payer OTHER ==
[2019-05-09] MEDS ORDERED: SODIUM CHLORIDE 0.9% 1,000 ML IV ONE (23:58)
[2019-05-09] MEDS ORDERED: ONDANSETRON 4 MG/2 ML VIAL IVP STA (23:58)
[2019-05-10 00:19] LABS: Basophils % (A) 0 %; Eosinophils # (A) 0.1 k/uL (0-0.7); Eosinophils % (A) 1 %; HCT 46.3 % (39.0-53.0); HGB 15.9 gm/dL (13.0-17.5); Lymphocytes # (A) 2.9 k/uL (1.0-4.8); Lymphocytes % (A) 22 %; MCH 29.9 pg (25.0-35.0); MCHC 34.4 g/dL (31.0-37.0); MCV 86.9 fL (80.0-100.0); Mean Platelet Volume 7.4; Monocytes # (A) 0.7 k/uL (0-1.0); Monocytes % (A) 6 %; Neutrophils # (A) 9.3 k/uL (1.3-7.7); Neutrophils % (A) 70 %; Platelet Count 364 k/uL (150-450); RBC 5.33 m/uL (4.30-5.90); RDW 12.2 % (11.5-15.5); WBC 13.3 k/uL (3.8-10.6)
[2019-05-10 00:31] LABS: ALT 25 U/L (4-49); AST 24 U/L (17-59); African American GFR (CKD) >90 (>60 ml/min/1.73 sqM); Albumin 5.2 g/dL (3.5-5.0); Alkaline Phosphatase 74 U/L (38-126); Anion Gap 13 mmol/L; Blood Urea Nitrogen 21 mg/dL (9-20); Calcium 10.3 mg/dL (8.4-10.2); Carbon Dioxide 26 mmol/L (22-30); Chloride 98 mmol/L (98-107); Glucose 114 mg/dL (74-99); Non-African American GFR(CKD) >90 (>60 ml/min/1.73 sqM); Potassium 3.7 mmol/L (3.5-5.1); Sodium 137 mmol/L (137-145); Total Bilirubin 1.8 mg/dL (0.2-1.3); Total Protein 8.1 g/dL (6.3-8.2)
[2019-05-10] MEDS ORDERED: MAG HYDROX/AL HYDROX/SIMETH 30 ML, HYOSCYAMINE ELIXIR 10 ML, LIDOCAINE VISCOUS 2% 10 ML PO STA ×3 (00:48)
[2019-05-10] MEDS ORDERED: METOCLOPRAMIDE 5 MG/ML 2 ML VIAL IVP STA (00:48)
[2019-05-10] MEDS ORDERED: diphenhydrAMINE 50 MG/ML 1 ML VIAL IVP STA (00:48)
[2019-05-10] MEDS ORDERED: PANTOPRAZOLE 40 MG/10 ML VIAL IVP STA (00:48)
--- NOTE | 2019-05-10 01:51 | ED ---
Nausea/Vomiting/Diarrhea HPI - General Chief complaint: Nausea/Vomiting/Diarrhea Stated complaint: nausea Time Seen by Provider: 05/09/19 23:58 Source: patient Mode of arrival: ambulatory Limitations: no limitations - History of Present Illness Initial comments: Jesus is a 34 yo M very well-known to the emergency department for his recurrent visits. Patient presents today with complaint of intractable nausea vomiting and epigastric abdominal pain identical to previous episodes of what he refers to as cyclic vomiting. Upon initial evaluation patient states this is identical to previous episodes and that he usually feels better after Zofran, Pepcid, Dilaudid and Ativan. - Related Data Home Medications Medication Instructions Recorded Confirmed Hydrocodone/Acetaminophen [[place] 1 tab PO Q6HR PRN 01/26/18 10/06/18 7.5-325] Omeprazole 20 mg PO DAILY 07/10/18 10/06/18 LORazepam [Ativan] 1 mg PO QID PRN 08/13/18 10/06/18 Previous Rx's Medication Instructions Recorded Amitriptyline HCl 50 mg PO HS #7 tab 12/16/17 Ondansetron Odt [Zofran ODT] 4 mg PO Q8HR PRN #10 tab 05/13/18 Allergies Allergy/AdvReac Type Severity Reaction Status Date / Time No Known Allergies Allergy Verified 05/09/19 23:38 Review of Systems ROS Statement: Those systems with pertinent positive or pertinent negative responses have been documented in the HPI. ROS Other: All systems not noted in ROS Statement are negative. Past Medical History Past Medical History: Asthma, GERD/Reflux Additional Past Medical History / Comment(s): cyclic vomiting syndrome, numbness/tingling bilateral feet when vomiting, low back pain/ruptured discs, occupational asthma, History of Any Multi-Drug Resistant Organisms: None Reported Past Surgical History: Adenoidectomy, Appendectomy, Cholecystectomy, Orthopedic Surgery, Tonsillectomy Additional Past Surgical History / Comment(s): EGD, ORIF bilateral ankles, cyclic vomiting Past Anesthesia/Blood Transfusion Reactions: No Reported Reaction Past Psychological History: Anxiety Smoking Status: Former smoker Past Alcohol Use History: None Reported Past Drug Use History: Marijuana - Past Family History Father Family Medical History: No Reported History Mother Family Medical History: Diabetes Mellitus Additional Family Medical History / Comment(s): severe food allergies General Exam - General Exam Comments Initial Comments: Physical Exam GENERAL: Patient is well-developed and well-nourished. Patient heaving but no vomiting HENT: Normocephalic, Atraumatic. EYES: PERRL, EOMI PULMONARY: Unlabored respirations. CARDIOVASCULAR: RRR ABDOMEN: Soft and nontender to deep palpation in all quadrants No peritoneal signs SKIN: Skin is clear with no lesions or rashes and otherwise unremarkable. : Deferred NEUROLOGIC: Patient is alert and oriented x3. Moving all extremities spontaneously MUSCULOSKELETAL: Normal extremities with adequate strength and full range of motion. PSYCHIATRIC: Normal psychiatric evaluation. Limitations: no limitations Course Vital Signs 05/09/19 23:36 Temperature 98.2 F Pulse Rate 74 Respiratory 16 Rate Blood Pressure 156/72 O2 Sat by Pulse 100 Oximetry Medical Decision Making - Medical Decision Making The patient was seen and evaluated, history is obtained from patient 34-year-old male who reports he has a history of cyclic vomiting however on multiple visits the patient has had urine drug screen positive for marijuana and we have discussed with him in the past possibility of cannabis hyperemesis. Patient has multiple visits for this complaint, presents today with an identical complaint of nausea and vomiting. Patient had one episode of vomiting in the ER prior to my evaluation, there is some nonbloody nonbilious vomitus in the base at bedside. Patient requesting Dilaudid by name stating that these cycles never break in less he is given Dilaudid. I advised the patient I will not be treating his cyclic vomiting with narcotic pain medication. Patient was given Zofran and IV fluids CBC and CMP were reviewed, mild leukocytosis likely reactive to vomiting, mild elevation of his bili which we've seen previously with episodes of vomiting The patient had no further vomiting after Zofran. Upon my reevaluation patient reports persistent nausea again requesting IV pain medications. I advised patient we will give alternate antiemetics and a GI cocktail. The patient was reevaluated after second dose of medications, he has had approximately 90 minutes without vomiting he tolerated a GI cocktail without vomiting. At this time I feel the patient is stable for discharge home to continue his home regimen of medications. Patient states that if he doesn't get pain medications he will have to come back, I advised the patient that should he need to return we will reevaluate him upon that time. High suspicion that the patient has some drug-seeking behavior. - Lab Data Result diagrams: 05/10/19 00:07 05/10/19 00:07 Lab Results 05/10/19 05/10/19 Range/Units 00:07 00:07 WBC 13.3 H (3.8-10.6) k/uL RBC 5.33 (4.30-5.90) m/uL Hgb 15.9 (13.0-17.5) gm/dL Hct 46.3 (39.0-53.0) % MCV 86.9 (80.0-100.0) fL MCH 29.9 (25.0-35.0) pg MCHC 34.4 (31.0-37.0) g/dL RDW 12.2 (11.5-15.5) % Plt Count 364 (150-450) k/uL Neutrophils % 70 % Lymphocytes % 22 % Monocytes % 6 % Eosinophils % 1 % Basophils % 0 % Neutrophils # 9.3 H (1.3-7.7) k/uL Lymphocytes # 2.9 (1.0-4.8) k/uL Monocytes # 0.7 (0-1.0) k/uL Eosinophils # 0.1 (0-0.7) k/uL Basophils # 0.0 (0-0.2) k/uL Sodium 137 (137-145) mmol/L Potassium 3.7 (3.5-5.1) mmol/L Chloride 98 (98-107) mmol/L Carbon Dioxide 26 (22-30) mmol/L Anion Gap 13 mmol/L BUN 21 H (9-20) mg/dL Creatinine 0.78 (0.66-1.25) mg/dL Est GFR (CKD-EPI)AfAm >90 (>60 ml/min/1.73 sqM) Est GFR (CKD-EPI)NonAf >90 (>60 ml/min/1.73 sqM) Glucose 114 H (74-99) mg/dL Calcium 10.3 H (8.4-10.2) mg/dL Total Bilirubin 1.8 H (0.2-1.3) mg/dL AST 24 (17-59) U/L ALT 25 (4-49) U/L Alkaline Phosphatase 74 (38-126) U/L Total Protein 8.1 (6.3-8.2) g/dL Albumin 5.2 H (3.5-5.0) g/dL Disposition Clinical Impression: Nausea and vomiting, Cannabinoid hyperemesis syndrome, Drug-seeking behavior Disposition: HOME SELF-CARE Condition: Stable Instructions (If sedation given, give patient instructions): Acute Nausea and Vomiting (ED) Is patient prescribed a controlled substance at d/c from ED?: No Referrals: Sher Lewis MD [Primary Care Provider] - 1-2 days
[2019-05-10 02:29] VITALS: BP 126/83; PULSE 60; RESP 18; TEMP 98.1
== END 2019-05-10 02:30 | disposition home or self-care (01) ==
LOC: EC 23:28
DX: F12.90 Cannabis use, unspecified, uncomplicated (principal); R11.2 Nausea with vomiting, unspecified; K21.9 Gastro-esophageal reflux disease without esophagitis; F41.9 Anxiety disorder, unspecified; Z76.5 Malingerer [conscious simulation]; Z79.899 Other long term (current) drug therapy; Z87.891 Personal history of nicotine dependence; Z90.49 Acquired absence of other specified parts of digestive tract; Z90.89 Acquired absence of other organs
CPT/HCPCS: 36415; 80053; 85025; 99284; 96374; 96375 ×3; 96361 ×2; J1200; J2765; J2405; C9113

== ENCOUNTER 2019-06-03 09:17 | Emergency (ER) | payer OTHER ==
[2019-06-03 09:29] VITALS: BP 162/94
[2019-06-03] MEDS ORDERED: SODIUM CHLORIDE 0.9% 1,000 ML IV STA (09:58)
[2019-06-03] MEDS ORDERED: ONDANSETRON 4 MG/2 ML VIAL IVP STA (09:58)
[2019-06-03 10:15] LABS: Basophils # (A) 0.1 k/uL (0-0.2); Basophils % (A) 0 %; Eosinophils # (A) 0.2 k/uL (0-0.7); Eosinophils % (A) 2 %; HGB 16.6 gm/dL (13.0-17.5); Lymphocytes # (A) 1.2 k/uL (1.0-4.8); Lymphocytes % (A) 11 %; MCH 30.2 pg (25.0-35.0); MCHC 33.8 g/dL (31.0-37.0); MCV 89.1 fL (80.0-100.0); Mean Platelet Volume 7.6; Monocytes # (A) 0.4 k/uL (0-1.0); Monocytes % (A) 3 %; Neutrophils # (A) 9.1 k/uL (1.3-7.7); Neutrophils % (A) 83 %; Platelet Count 376 k/uL (150-450); RDW 12.3 % (11.5-15.5)
[2019-06-03 10:25] LABS: ALT 38 U/L (4-49); AST 26 U/L (17-59); African American GFR (CKD) >90 (>60 ml/min/1.73 sqM); Albumin 5.1 g/dL (3.5-5.0); Alkaline Phosphatase 85 U/L (38-126); Anion Gap 12 mmol/L; Blood Urea Nitrogen 11 mg/dL (9-20); Calcium 10.5 mg/dL (8.4-10.2); Carbon Dioxide 24 mmol/L (22-30); Chloride 103 mmol/L (98-107); Glucose 120 mg/dL (74-99); Non-African American GFR(CKD) >90 (>60 ml/min/1.73 sqM); Potassium 4.1 mmol/L (3.5-5.1); Sodium 139 mmol/L (137-145); Total Bilirubin 1.3 mg/dL (0.2-1.3); Total Protein 8.1 g/dL (6.3-8.2)
[2019-06-03] MEDS ORDERED: MAG HYDROX/AL HYDROX/SIMETH 30 ML, HYOSCYAMINE ELIXIR 10 ML, LIDOCAINE VISCOUS 2% 10 ML PO STA ×3 (10:25)
--- NOTE | 2019-06-03 10:32 | XR ---
EXAMINATION TYPE: XR KUB DATE OF EXAM: 06/03/2019 10:19 AM CLINICAL HISTORY: Abdominal pain, nausea, and vomiting TECHNIQUE: Single upright image of the abdomen is obtained. COMPARISON: 04/29/2019. FINDINGS: There are cholecystectomy clips present. Lung bases are well aerated. No pneumoperitoneum. No dilated large or small bowel. Osseous structures are grossly intact. No suspicious calcifications in the abdomen or pelvis IMPRESSION: Nonobstructive bowel gas pattern.
[2019-06-03] MEDS ORDERED: METOCLOPRAMIDE 5 MG/ML 2 ML VIAL IVP STA (10:37)
--- NOTE | 2019-06-03 10:41 | ED ---
General Adult HPI - General Chief complaint: Abdominal Pain Stated complaint: abd pain/vomiting Time Seen by Provider: 06/03/19 09:33 Source: patient, RN notes reviewed, old records reviewed Mode of arrival: ambulatory Limitations: no limitations - History of Present Illness Initial comments: 34-year-old male patient with past history of cyclic vomiting, well known to this department presents to ED with cheif complaint of nausea vomiting abdominal pain. Patient reports that the last 2 hours having nausea vomiting and epigastric abdominal pain patient reports that this discomfort is similar to what he has experienced before. Denies any other complaints. Systemic: Pt denies fatigue, fever/chills, rash. Pt denies weakness, night sweats, weight loss. Neuro: Pt denies headache, visual disturbances, syncope or pre-syncope. HEENT: Pt denies ocular discharge or irritation, otalgia, rhinorrhea, pharyngitis or notable lymphadenopathy. Cardiopulmonary: Pt denies chest pain, SOB, heart palpitations, dyspnea on exertion. : Pt denies dysuria, burning w/ urination, frequency/urgency. Denies new onset urinary or bowel incontinence. MSK: Pt denies myalgia, loss of strength or function in extremities. Neuro: Pt denies new onset weakness, paresthesias. - Related Data Home Medications Medication Instructions Recorded Confirmed Hydrocodone/Acetaminophen [[place] 1 tab PO Q6HR PRN 01/26/18 10/06/18 7.5-325] Omeprazole 20 mg PO DAILY 07/10/18 10/06/18 LORazepam [Ativan] 1 mg PO QID PRN 08/13/18 10/06/18 Previous Rx's Medication Instructions Recorded Amitriptyline HCl 50 mg PO HS #7 tab 12/16/17 Ondansetron Odt [Zofran ODT] 4 mg PO Q8HR PRN #10 tab 05/13/18 Allergies Allergy/AdvReac Type Severity Reaction Status Date / Time No Known Allergies Allergy Verified 06/03/19 09:29 Review of Systems ROS Statement: Those systems with pertinent positive or pertinent negative responses have been documented in the HPI. ROS Other: All systems not noted in ROS Statement are negative. Past Medical History Past Medical History: Asthma, GERD/Reflux Additional Past Medical History / Comment(s): cyclic vomiting syndrome, numbness/tingling bilateral feet when vomiting, low back pain/ruptured discs, occupational asthma, History of Any Multi-Drug Resistant Organisms: None Reported Past Surgical History: Adenoidectomy, Appendectomy, Cholecystectomy, Orthopedic Surgery, Tonsillectomy Additional Past Surgical History / Comment(s): EGD, ORIF bilateral ankles, cyclic vomiting Past Anesthesia/Blood Transfusion Reactions: No Reported Reaction Past Psychological History: Anxiety Smoking Status: Former smoker Past Alcohol Use History: None Reported Past Drug Use History: Marijuana - Past Family History Father Family Medical History: No Reported History Mother Family Medical History: Diabetes Mellitus Additional Family Medical History / Comment(s): severe food allergies General Exam - General Exam Comments Initial Comments: Constitutional: NAD, AOX3, Pt has pleasant affect. HEENT: NC/AT, trachea midline, neck supple, no lymphadenopathy. Posterior pharynx non erythematous, without exudates. External ears appear normal, without discharge. Mucous membranes moist. Eyes PERRLA, EOM intact. There is no scleral icterus. No pallor noted. Cardiopulmonary: RRR, no murmurs, rubs or gallops, no JVD noted. Lungs CTAB in anterior and posterior [place]. No peripheral edema. Abdominal exam: Abdomen soft and non-distended. Abdomen mildly tender to palpation in epigastric region. Bowel sounds active in LLQ. No hepatosplenomegaly. No ecchymosis Neuro: CN II-XII grossly intact. No nuchal rigidity. No raccon eyes, no man sign, no hemotympanum. No cervical spinal tenderness. MSK: No posterior calf tenderness bilaterally, homans sign negative bilaterally. Posterior tibialis and radial pulse +2 bilaterally. Sensation intact in upper and lower extremities. Full active ROM in upper and lower extremities, 5/5 stregnth. Limitations: no limitations Course Vital Signs 06/03/19 09:28 Temperature 98.2 F Pulse Rate 83 Respiratory 18 Rate Blood Pressure 162/94 O2 Sat by Pulse 100 Oximetry Medical Decision Making - Medical Decision Making 34-year-old male patient with past history of cyclic vomiting, well known to this department presents to ED with cheif complaint of nausea vomiting abdominal pain. Patient reports that the last 2 hours having nausea vomiting and epigastric abdominal pain patient reports that this discomfort is similar to what he has experienced before. Denies any other complaints.Patient vital signs are stable, afebrile. Physical exam displayed mild epigastric tenderness. Laboratory investigations were obtained and are overall unmipressive. She received antiemetics, analgesia and is feeling significantly better. Has not had episodes of emesis over hour. Patient will discharge AND ER if condition worsens and follow up with primary care provider. Case discussed with Dr. Damico. - Lab Data Result diagrams: 06/03/19 09:58 06/03/19 09:58 Lab Results 06/03/19 06/03/19 Range/Units 09:58 09:58 WBC 11.0 H (3.8-10.6) k/uL RBC 5.50 (4.30-5.90) m/uL Hgb 16.6 (13.0-17.5) gm/dL Hct 49.0 (39.0-53.0) % MCV 89.1 (80.0-100.0) fL MCH 30.2 (25.0-35.0) pg MCHC 33.8 (31.0-37.0) g/dL RDW 12.3 (11.5-15.5) % Plt Count 376 (150-450) k/uL Neutrophils % 83 % Lymphocytes % 11 % Monocytes % 3 % Eosinophils % 2 % Basophils % 0 % Neutrophils # 9.1 H (1.3-7.7) k/uL Lymphocytes # 1.2 (1.0-4.8) k/uL Monocytes # 0.4 (0-1.0) k/uL Eosinophils # 0.2 (0-0.7) k/uL Basophils # 0.1 (0-0.2) k/uL Sodium 139 (137-145) mmol/L Potassium 4.1 (3.5-5.1) mmol/L Chloride 103 (98-107) mmol/L Carbon Dioxide 24 (22-30) mmol/L Anion Gap 12 mmol/L BUN 11 (9-20) mg/dL Creatinine 0.89 (0.66-1.25) mg/dL Est GFR (CKD-EPI)AfAm >90 (>60 ml/min/1.73 sqM) Est GFR (CKD-EPI)NonAf >90 (>60 ml/min/1.73 sqM) Glucose 120 H (74-99) mg/dL Calcium 10.5 H (8.4-10.2) mg/dL Total Bilirubin 1.3 (0.2-1.3) mg/dL AST 26 (17-59) U/L ALT 38 (4-49) U/L Alkaline Phosphatase 85 (38-126) U/L Total Protein 8.1 (6.3-8.2) g/dL Albumin 5.1 H (3.5-5.0) g/dL Lipase 78 (23-300) U/L Disposition Clinical Impression: Chronic abdominal pain Disposition: HOME SELF-CARE Condition: Stable Instructions (If sedation given, give patient instructions): Abdominal Pain (ED) Additional Instructions: Follow-up with primary care provider tomorrow. Return to ER if condition worsens. Is patient prescribed a controlled substance at d/c from ED?: No Referrals: Sher Lewis MD [Primary Care Provider] - 1-2 days
[2019-06-03] MEDS ORDERED: FAMOTIDINE 20 MG/2 ML VIAL IV STA (11:15)
[2019-06-03] MEDS ORDERED: HYDROcodone/APAP 7.5-325MG 1 EACH TAB PO ONE (12:04)
[2019-06-03] MEDS ORDERED: HYDROmorphone 1 MG/ML 1 ML SYRINGE IVP STA (12:11)
[2019-06-03] MEDS ORDERED: KETOROLAC 30 MG/ML 1 ML VIAL IVP STA (13:10)
[2019-06-03 13:53] VITALS: PULSE 66; RESP 16; TEMP 98.1
== END 2019-06-03 13:53 | disposition home or self-care (01) ==
LOC: EC 09:17
DX: G89.29 Other chronic pain (principal); R10.13 Epigastric pain; R11.2 Nausea with vomiting, unspecified; R10.816 Epigastric abdominal tenderness; K21.9 Gastro-esophageal reflux disease without esophagitis; F41.9 Anxiety disorder, unspecified; Z79.899 Other long term (current) drug therapy; Z87.891 Personal history of nicotine dependence; Z90.89 Acquired absence of other organs; Z90.49 Acquired absence of other specified parts of digestive tract
CPT/HCPCS: 36415; 80053; 83690; 85025; 74018; 99284; 96374; 96375 ×3; 96361; J2765; J2405; J1170

== ENCOUNTER 2019-08-11 03:35 | Emergency (ER) | payer OTHER ==
[2019-08-11 03:51] VITALS: BP 100/71; PULSE 78; RESP 18; TEMP 98.1
[2019-08-11] MEDS ORDERED: diphenhydrAMINE 50 MG/ML 1 ML VIAL IVP STA (03:55)
[2019-08-11] MEDS ORDERED: SODIUM CHLORIDE 0.9% 1,000 ML IV STA (03:55)
[2019-08-11] MEDS ORDERED: ONDANSETRON 4 MG/2 ML VIAL IVP STA (03:55)
--- NOTE | 2019-08-11 03:56 | ED ---
Abdominal Pain HPI - General Chief Complaint: Abdominal Pain Stated Complaint: Abd pain Time Seen by Provider: 08/11/19 03:55 Source: patient Mode of arrival: ambulatory Limitations: no limitations - History of Present Illness Initial Comments: Jesus is a 34-year-old male very well-known to the emergency department for frequent visits for cyclic vomiting or cannabis hyperemesis syndrome. Patient presents this morning with nausea and vomiting an abdominal pain identical to previous episodes of cyclic vomiting. Patient reports that the only thing that treats this is Dilaudid. - Related Data Home Medications Medication Instructions Recorded Confirmed Hydrocodone/Acetaminophen [[place] 1 tab PO Q6HR PRN 01/26/18 10/06/18 7.5-325] Omeprazole 20 mg PO DAILY 07/10/18 10/06/18 LORazepam [Ativan] 1 mg PO QID PRN 08/13/18 10/06/18 Previous Rx's Medication Instructions Recorded Amitriptyline HCl 50 mg PO HS #7 tab 12/16/17 Ondansetron Odt [Zofran ODT] 4 mg PO Q8HR PRN #10 tab 05/13/18 Allergies Allergy/AdvReac Type Severity Reaction Status Date / Time No Known Allergies Allergy Verified 08/11/19 03:50 Review of Systems ROS Statement: Those systems with pertinent positive or pertinent negative responses have been documented in the HPI. ROS Other: All systems not noted in ROS Statement are negative. Past Medical History Past Medical History: Asthma, GERD/Reflux Additional Past Medical History / Comment(s): cyclic vomiting syndrome, numbness/tingling bilateral feet when vomiting, low back pain/ruptured discs, occupational asthma, History of Any Multi-Drug Resistant Organisms: None Reported Past Surgical History: Adenoidectomy, Appendectomy, Cholecystectomy, Orthopedic Surgery, Tonsillectomy Additional Past Surgical History / Comment(s): EGD, ORIF bilateral ankles, cyclic vomiting Past Anesthesia/Blood Transfusion Reactions: No Reported Reaction Past Psychological History: Anxiety Smoking Status: Former smoker Past Alcohol Use History: None Reported Past Drug Use History: Marijuana - Past Family History Father Family Medical History: No Reported History Mother Family Medical History: Diabetes Mellitus Additional Family Medical History / Comment(s): severe food allergies General Exam - General Exam Comments Initial Comments: Physical Exam GENERAL: Patient is well-developed and well-nourished Actively vomiting. HENT: Normocephalic, Atraumatic. EYES: PERRL, EOMI PULMONARY: Unlabored respirations. CARDIOVASCULAR: RRR Warm and well perfused extremities ABDOMEN: Non-distended SKIN: No rashes or bruising : Deferred NEUROLOGIC: Alert and oriented Normal speech Normal gait MUSCULOSKELETAL: Moving all extremities with no apparent injury PSYCHIATRIC: No SI/HI Limitations: no limitations Course Vital Signs 08/11/19 03:47 Temperature 98.1 F Pulse Rate 78 Respiratory 18 Rate Blood Pressure 100/71 O2 Sat by Pulse 100 Oximetry Medical Decision Making - Medical Decision Making The patient was seen and evaluated history is obtained from the patient review of medical record 34-year-old male very well-known to the ER for frequent visits for cyclic vomiting Patient states that only Dilaudid will treat his cyclic vomiting, I advised that I will not treat his chronic pain with Dilaudid and he advised me that on previous visits when we have denied of Dilaudid he's gone to [facility] and was told that we should treat him with Dilaudid because it prevents him from getting sick. Labs were obtained with no abnormalities Patient refused x-rays Patient again requesting dilaudid - advised again we will not treat him with D ilaudid Patient requested to discharge AMA stating that he needs to go somewhere that will give him Dilaudid - Lab Data Result diagrams: 08/11/19 04:13 08/11/19 04:13 Lab Results 08/11/19 08/11/19 Range/Units 04:13 04:13 WBC 13.3 H (3.8-10.6) k/uL RBC 5.29 (4.30-5.90) m/uL Hgb 15.1 (13.0-17.5) gm/dL Hct 45.8 (39.0-53.0) % MCV 86.7 (80.0-100.0) fL MCH 28.5 (25.0-35.0) pg MCHC 32.9 (31.0-37.0) g/dL RDW 12.4 (11.5-15.5) % Plt Count 384 (150-450) k/uL Neutrophils % 85 % Lymphocytes % 11 % Monocytes % 3 % Eosinophils % 1 % Basophils % 0 % Neutrophils # 11.3 H (1.3-7.7) k/uL Lymphocytes # 1.4 (1.0-4.8) k/uL Monocytes # 0.4 (0-1.0) k/uL Eosinophils # 0.1 (0-0.7) k/uL Basophils # 0.0 (0-0.2) k/uL Sodium 140 (137-145) mmol/L Potassium 3.6 (3.5-5.1) mmol/L Chloride 105 (98-107) mmol/L Carbon Dioxide 26 (22-30) mmol/L Anion Gap 9 mmol/L BUN 10 (9-20) mg/dL Creatinine 0.82 (0.66-1.25) mg/dL Est GFR (CKD-EPI)AfAm >90 (>60 ml/min/1.73 sqM) Est GFR (CKD-EPI)NonAf >90 (>60 ml/min/1.73 sqM) Glucose 164 H (74-99) mg/dL Calcium 9.9 (8.4-10.2) mg/dL Total Bilirubin 0.9 (0.2-1.3) mg/dL AST 20 (17-59) U/L ALT 24 (4-49) U/L Alkaline Phosphatase 71 (38-126) U/L Total Protein 7.3 (6.3-8.2) g/dL Albumin 4.7 (3.5-5.0) g/dL Amylase 48 (30-110) U/L Lipase 121 (23-300) U/L Disposition Clinical Impression: Intractable nausea and vomiting, Cyclical vomiting, intractable, Drug-seeking behavior Disposition: Left Against Medical Advice Condition: Stable Is patient prescribed a controlled substance at d/c from ED?: No Referrals: Sher Lewis MD [Primary Care Provider] - 1-2 days
[2019-08-11 04:19] LABS: Basophils % (A) 0 %; Eosinophils # (A) 0.1 k/uL (0-0.7); Eosinophils % (A) 1 %; HCT 45.8 % (39.0-53.0); HGB 15.1 gm/dL (13.0-17.5); Lymphocytes # (A) 1.4 k/uL (1.0-4.8); Lymphocytes % (A) 11 %; MCH 28.5 pg (25.0-35.0); MCHC 32.9 g/dL (31.0-37.0); MCV 86.7 fL (80.0-100.0); Mean Platelet Volume 7.5; Monocytes # (A) 0.4 k/uL (0-1.0); Monocytes % (A) 3 %; Neutrophils # (A) 11.3 k/uL (1.3-7.7); Neutrophils % (A) 85 %; Platelet Count 384 k/uL (150-450); RBC 5.29 m/uL (4.30-5.90); RDW 12.4 % (11.5-15.5); WBC 13.3 k/uL (3.8-10.6)
[2019-08-11 04:28] LABS: ALT 24 U/L (4-49); AST 20 U/L (17-59); African American GFR (CKD) >90 (>60 ml/min/1.73 sqM); Albumin 4.7 g/dL (3.5-5.0); Alkaline Phosphatase 71 U/L (38-126); Amylase 48 U/L (30-110); Anion Gap 9 mmol/L; Blood Urea Nitrogen 10 mg/dL (9-20); Calcium 9.9 mg/dL (8.4-10.2); Carbon Dioxide 26 mmol/L (22-30); Chloride 105 mmol/L (98-107); Glucose 164 mg/dL (74-99); Non-African American GFR(CKD) >90 (>60 ml/min/1.73 sqM); Potassium 3.6 mmol/L (3.5-5.1); Sodium 140 mmol/L (137-145); Total Bilirubin 0.9 mg/dL (0.2-1.3); Total Protein 7.3 g/dL (6.3-8.2)
[2019-08-11] MEDS ORDERED: HALOPERIDOL LACTATE 5 MG/ML 1 ML VIAL IM STA (05:32)
== END 2019-08-11 06:14 | disposition left against medical advice (07) ==
LOC: EC 03:35
DX: R11.15 Cyclical vomiting syndrome unrelated to migraine (principal); K21.9 Gastro-esophageal reflux disease without esophagitis; F41.9 Anxiety disorder, unspecified; Z79.899 Other long term (current) drug therapy; Z90.49 Acquired absence of other specified parts of digestive tract; Z90.89 Acquired absence of other organs; Z87.891 Personal history of nicotine dependence; Z76.5 Malingerer [conscious simulation]; Z53.29 Procedure and treatment not carried out because of patient's decision for other reasons
CPT/HCPCS: 96374 ×2; 96375 ×2; 96372 ×2; 96361 ×3; 99284 ×3; 36415; 80053; 82150; 83690; 85025; J1200; J1630; J2405

== ENCOUNTER 2019-08-11 08:52 | Emergency (ER) | payer OTHER ==
[2019-08-11 08:56] VITALS: BP 140/85; PULSE 75; RESP 18; TEMP 98.1
--- NOTE | 2019-08-11 09:28 | ED ---
General Adult HPI - General Chief complaint: Abdominal Pain Stated complaint: abd pain-revisit Source: patient, RN notes reviewed, old records reviewed Mode of arrival: ambulatory Limitations: no limitations - History of Present Illness Initial comments: This is a 34-year-old male who presents emergency Department with a past medical history for cyclic vomiting. Patient comes in wanting Dilaudid for his abdominal pain. Patient states she was here earlier today and didn't get Dilaudid so he went home he continued to have pain so came back. Patient states this happened many times in the past and the only thing that works is Dilaudid. I indicated to the patient will not give me Dilaudid and he was upset with me. Patient does not mention to me that he went to [facility] but patient did go to [facility] and again did not get any pain medicines there. - Related Data Home Medications Medication Instructions Recorded Confirmed Hydrocodone/Acetaminophen [[place] 1 tab PO Q6HR PRN 01/26/18 10/06/18 7.5-325] Omeprazole 20 mg PO DAILY 07/10/18 10/06/18 LORazepam [Ativan] 1 mg PO QID PRN 08/13/18 10/06/18 Previous Rx's Medication Instructions Recorded Amitriptyline HCl 50 mg PO HS #7 tab 12/16/17 Ondansetron Odt [Zofran ODT] 4 mg PO Q8HR PRN #10 tab 05/13/18 Allergies Allergy/AdvReac Type Severity Reaction Status Date / Time No Known Allergies Allergy Verified 08/11/19 08:56 Review of Systems ROS Statement: Those systems with pertinent positive or pertinent negative responses have been documented in the HPI. ROS Other: All systems not noted in ROS Statement are negative. Past Medical History Past Medical History: Asthma, GERD/Reflux Additional Past Medical History / Comment(s): cyclic vomiting syndrome, numbness/tingling bilateral feet when vomiting, low back pain/ruptured discs, occupational asthma, History of Any Multi-Drug Resistant Organisms: None Reported Past Surgical History: Adenoidectomy, Appendectomy, Cholecystectomy, Orthopedic Surgery, Tonsillectomy Additional Past Surgical History / Comment(s): EGD, ORIF bilateral ankles, cyclic vomiting Past Anesthesia/Blood Transfusion Reactions: No Reported Reaction Past Psychological History: Anxiety Smoking Status: Former smoker Past Alcohol Use History: None Reported Past Drug Use History: Marijuana - Past Family History Father Family Medical History: No Reported History Mother Family Medical History: Diabetes Mellitus Additional Family Medical History / Comment(s): severe food allergies General Exam - General Exam Comments Initial Comments: GENERAL: Patient is well-developed and well-nourished. Patient is nontoxic and well- hydrated and is in no acute distress. ENT: Neck is soft and supple. No significant lymphadenopathy is noted. Oropharynx i s clear. Moist mucous membranes. Neck has full range of motion without eliciting any pain. EYES: The sclera were anicteric and conjunctiva were pink and moist. Extraocular movements were intact and pupils were equal round and reactive to light. Eyelids were unremarkable. PULMONARY: Unlabored respirations. Good breath sounds bilaterally. No audible rales rhonchi or wheezing was noted. CARDIOVASCULAR: There is a regular rate and rhythm without any murmurs gallops or rubs. ABDOMEN: Patient's abdomen is soft and nondistended and he has some periumbilical pain on palpation but with distraction there is no pain SKIN: Skin is clear with no lesions or rashes and otherwise unremarkable. NEUROLOGIC: Patient is alert and oriented x3. Cranial nerves II through XII are grossly intact. Motor and sensory are also intact. Normal speech, volume and content. Symmetrical smile. MUSCULOSKELETAL: Normal extremities with adequate strength and full range of motion. No lower extremity swelling or edema. No calf tenderness. LYMPHATICS: No significant lymphadenopathy is noted PSYCHIATRIC: Normal psychiatric evaluation. Limitations: no limitations Course Vital Signs 08/11/19 08:54 Temperature 98.1 F Pulse Rate 75 Respiratory 18 Rate Blood Pressure 140/85 O2 Sat by Pulse 99 Oximetry Disposition Clinical Impression: Chronic abdominal pain, Drug-seeking behavior Disposition: HOME SELF-CARE Instructions (If sedation given, give patient instructions): Abdominal Pain (ED) Is patient prescribed a controlled substance at d/c from ED?: No Referrals: Sher Lewis MD [Primary Care Provider] - 1-2 days Time of Disposition: 09:28
== END 2019-08-11 09:53 | disposition home or self-care (01) ==
LOC: EC 08:52
DX: G89.29 Other chronic pain (principal); R10.9 Unspecified abdominal pain; K21.9 Gastro-esophageal reflux disease without esophagitis; F41.9 Anxiety disorder, unspecified; Z79.899 Other long term (current) drug therapy; Z90.89 Acquired absence of other organs; Z90.49 Acquired absence of other specified parts of digestive tract; Z87.891 Personal history of nicotine dependence; Z76.5 Malingerer [conscious simulation]
CPT/HCPCS: 99284

== ENCOUNTER 2019-10-08 12:35 | Observation (INO) | payer OTHER ==
[2019-10-08] MEDS ORDERED: SODIUM CHLORIDE 0.9% 500 ML 500 ML IV STA (13:18)
[2019-10-08] MEDS ORDERED: SODIUM CHLORIDE 0.9% 1,000 ML IV STA ×2 (13:18)
[2019-10-08] MEDS ORDERED: PANTOPRAZOLE 40 MG/10 ML VIAL IVP STA (13:18)
[2019-10-08] MEDS ORDERED: MORPHINE SULFATE 4 MG/ML SYRINGE IV STA (13:18)
[2019-10-08] MEDS ORDERED: ONDANSETRON 4 MG/2 ML VIAL IVP STA (13:18)
--- NOTE | 2019-10-08 13:21 | ED ---
Abdominal Pain HPI - General Chief Complaint: Abdominal Pain Stated Complaint: abd pain Time Seen by Provider: 10/08/19 13:00 Source: patient, RN notes reviewed, old records reviewed Mode of arrival: ambulatory Limitations: no limitations - History of Present Illness Initial Comments: This is a 32-year-old male DF for evaluation patient Dese for evaluation regards to severe abdominal pain severe nausea vomiting intractable nausea vomiting. Multiple ER visits for same. History of same. No recent admission for same patient was sent by primary care for admission MD Complaint: abdominal pain, other (Persistent nausea vomiting) Location: diffuse, epigastric, suprapubic Migration to: no migration Severity: moderate Severity scale (1-10): 6 Quality: aching Consistency: constant Improves With: nothing Worsens With: nothing Associated Symptoms: nausea, vomiting - Related Data Home Medications Medication Instructions Recorded Confirmed Hydrocodone/Acetaminophen [[place] 1 tab PO Q6HR PRN 01/26/18 10/08/19 7.5-325] Omeprazole 20 mg PO DAILY 07/10/18 10/08/19 LORazepam [Ativan] 1 mg PO QID PRN 08/13/18 10/08/19 Amitriptyline HCl [Elavil] 150 mg PO HS 10/08/19 10/08/19 Baclofen [Lioresal] 20 mg PO QID PRN 10/08/19 10/08/19 Tigan 100mg/Ml 200 mg IM ONCE 10/08/19 10/08/19 Allergies Allergy/AdvReac Type Severity Reaction Status Date / Time No Known Allergies Allergy Verified 10/08/19 12:51 Review of Systems ROS Statement: Those systems with pertinent positive or pertinent negative responses have been documented in the HPI. ROS Other: All systems not noted in ROS Statement are negative. Past Medical History Past Medical History: Asthma, GERD/Reflux Additional Past Medical History / Comment(s): cyclic vomiting syndrome, numbness/tingling bilateral feet when vomiting, low back pain/ruptured discs, occupational asthma, History of Any Multi-Drug Resistant Organisms: None Reported Past Surgical History: Adenoidectomy, Appendectomy, Cholecystectomy, Orthopedic Surgery, Tonsillectomy Additional Past Surgical History / Comment(s): EGD, ORIF bilateral ankles, cyclic vomiting Past Anesthesia/Blood Transfusion Reactions: No Reported Reaction Past Psychological History: Anxiety Smoking Status: Never smoker Past Alcohol Use History: None Reported Past Drug Use History: Marijuana - Past Family History Father Family Medical History: No Reported History Mother Family Medical History: Diabetes Mellitus Additional Family Medical History / Comment(s): severe food allergies General Exam Limitations: no limitations General appearance: alert, in no apparent distress, anxious Head exam: Present: atraumatic, normocephalic, normal inspection Eye exam: Present: normal appearance, PERRL, EOMI. Absent: scleral icterus, conjunctival injection, periorbital swelling ENT exam: Present: normal exam, mucous membranes moist Neck exam: Present: normal inspection. Absent: tenderness, meningismus, lympha denopathy Respiratory exam: Present: normal lung sounds bilaterally. Absent: respiratory distress, wheezes, rales, rhonchi, stridor Cardiovascular Exam: Present: regular rate, normal rhythm, normal heart sounds. Absent: systolic murmur, diastolic murmur, rubs, gallop, clicks GI/Abdominal exam: Present: soft, normal bowel sounds. Absent: distended, tenderness, guarding, rebound, rigid Extremities exam: Present: normal inspection, full ROM, normal capillary refill. Absent: tenderness, pedal edema, joint swelling, calf tenderness Back exam: Present: normal inspection Neurological exam: Present: alert, oriented X3, CN II-XII intact Psychiatric exam: Present: normal affect, normal mood Skin exam: Present: warm, dry, intact, normal color. Absent: rash Course Vital Signs 10/08/19 12:49 Temperature 98.4 F Pulse Rate 80 Respiratory 16 Rate Blood Pressure 156/78 O2 Sat by Pulse 100 Oximetry - Reevaluation(s) Reevaluation #1: Medical record is reviewed Patient has no improvement in symptoms Informed of test results - Consultations Consultation #1: Spoke with Dr. cardozo agrees to admit this patient Medical Decision Making - Medical Decision Making 84 male with intractable nausea vomiting patient be admitted for symptomatic treatment - Lab Data Result diagrams: 10/08/19 13:28 10/08/19 13:28 Lab Results 10/08/19 10/08/19 10/08/19 Range/Units 13:28 13:28 13:28 WBC 16.0 H (3.8-10.6) k/uL RBC 5.63 (4.30-5.90) m/uL Hgb 16.1 (13.0-17.5) gm/dL Hct 49.0 (39.0-53.0) % MCV 87.0 (80.0-100.0) fL MCH 28.5 (25.0-35.0) pg MCHC 32.8 (31.0-37.0) g/dL RDW 12.8 (11.5-15.5) % Plt Count 371 (150-450) k/uL Neutrophils % 90 % Lymphocytes % 7 % Monocytes % 2 % Eosinophils % 0 % Basophils % 0 % Neutrophils # 14.5 H (1.3-7.7) k/uL Lymphocytes # 1.2 (1.0-4.8) k/uL Monocytes # 0.3 (0-1.0) k/uL Eosinophils # 0.0 (0-0.7) k/uL Basophils # 0.0 (0-0.2) k/uL Sodium 140 (137-145) mmol/L Potassium 4.6 (3.5-5.1) mmol/L Chloride 105 (98-107) mmol/L Carbon Dioxide 24 (22-30) mmol/L Anion Gap 11 mmol/L BUN 13 (9-20) mg/dL Creatinine 0.73 (0.66-1.25) mg/dL Est GFR (CKD-EPI)AfAm >90 (>60 ml/min/1.73 sqM) Est GFR (CKD-EPI)NonAf >90 (>60 ml/min/1.73 sqM) Glucose 123 H (74-99) mg/dL Plasma Lactic Acid [place] 2.2 H* (0.7-2.0) mmol/L Calcium 10.8 H (8.4-10.2) mg/dL Total Bilirubin 0.7 (0.2-1.3) mg/dL AST 25 (17-59) U/L ALT 24 (4-49) U/L Alkaline Phosphatase 95 (38-126) U/L Total Protein 8.0 (6.3-8.2) g/dL Albumin 5.1 H (3.5-5.0) g/dL Amylase 57 (30-110) U/L Lipase 43 (23-300) U/L Disposition Clinical Impression: Vomiting, Cyclical vomiting, intractable, Intractable nausea and vomiting, Nausea and vomiting, Failure of outpatient treatment, Intractable abdominal pain, Abdominal pain, Dehydration Disposition: ADMITTED IP TO THIS HOSP Condition: Good Is patient prescribed a controlled substance at d/c from ED?: No
[2019-10-08] MEDS ORDERED: LORazepam 2 MG/ML INJ IV PRN (13:32)
[2019-10-08] MEDS ORDERED: HYDROmorphone 1 MG/ML 1 ML SYRINGE IVP PRN (13:32)
[2019-10-08] MEDS ORDERED: HYDROmorphone 1 MG/ML 1 ML SYRINGE IVP STA ×2 (13:32→16:32)
[2019-10-08] MEDS ORDERED: diphenhydrAMINE 50 MG/ML 1 ML VIAL IVP STA (13:32)
[2019-10-08] MEDS ORDERED: LORazepam 2 MG/ML INJ IV STA (13:32)
[2019-10-08] MEDS ORDERED: FAMOTIDINE 20 MG/2 ML VIAL IV STA (13:32)
[2019-10-08] MEDS ORDERED: diphenhydrAMINE 50 MG/ML 1 ML VIAL IVP PRN (13:32)
[2019-10-08 13:54] LABS: Basophils % (A) 0 %; Eosinophils % (A) 0 %; HGB 16.1 gm/dL (13.0-17.5); Lymphocytes # (A) 1.2 k/uL (1.0-4.8); Lymphocytes % (A) 7 %; MCH 28.5 pg (25.0-35.0); MCHC 32.8 g/dL (31.0-37.0); Mean Platelet Volume 8.3; Monocytes # (A) 0.3 k/uL (0-1.0); Monocytes % (A) 2 %; Neutrophils # (A) 14.5 k/uL (1.3-7.7); Neutrophils % (A) 90 %; Platelet Count 371 k/uL (150-450); RBC 5.63 m/uL (4.30-5.90); RDW 12.8 % (11.5-15.5)
[2019-10-08 14:05] LABS: ALT 24 U/L (4-49); AST 25 U/L (17-59); African American GFR (CKD) >90 (>60 ml/min/1.73 sqM); Albumin 5.1 g/dL (3.5-5.0); Alkaline Phosphatase 95 U/L (38-126); Amylase 57 U/L (30-110); Anion Gap 11 mmol/L; Blood Urea Nitrogen 13 mg/dL (9-20); Calcium 10.8 mg/dL (8.4-10.2); Carbon Dioxide 24 mmol/L (22-30); Chloride 105 mmol/L (98-107); Glucose 123 mg/dL (74-99); Non-African American GFR(CKD) >90 (>60 ml/min/1.73 sqM); Potassium 4.6 mmol/L (3.5-5.1); Sodium 140 mmol/L (137-145); Total Bilirubin 0.7 mg/dL (0.2-1.3)
[2019-10-08] MEDS ORDERED: METOCLOPRAMIDE 5 MG/ML 2 ML VIAL IVP STA (16:32)
[2019-10-08] MEDS ORDERED: DICYCLOMINE 10 MG/ML 2 ML AMP IM STA (16:32)
[2019-10-08] MEDS ORDERED: HYDROmorphone 0.5 MG/0.5 ML SYRINGE IVP STA (17:20)
[2019-10-08] MEDS: METOCLOPRAMIDE 5 MG/ML 2 ML VIAL IVP SCH (17:27)
[2019-10-08] MEDS: HYDROmorphone 1 MG/ML 1 ML SYRINGE IVP PRN (20:46)
--- NOTE | 2019-10-08 22:05 | P.HPIM ---
History of Present Illness H&P Date: 10/08/19 Chief Complaint: abdominal pain History of presenting complaint: This is a pleasant 34-year-old patient of Dr. Sher Lewis. Chronic stable medical conditions include lower back pain, long history of cyclical vomiting syndrome and multiple admissions for the same. patient increasing abdominal pain starting this morning. Nausea vomiting. No fever no chills. No change in b owel habit. Presently ER for the same. Requesting more IV pain medications but she Dilaudid. At this about always helps him. Uncomfortable in bed. Review of systems: GEN.: Tired EYES: None HEENT: None NECK: None RESPIRATORY: None CARDIOVASCULAR: None GASTROINTESTINAL: None GENITOURINARY: None MUSCULOSKELETAL: Chronic low back pain LYMPHATICS: None HEMATOLOGICAL: None PSYCHIATRY: None NEUROLOGICAL: None Past medical history: Cyclical vomiting syndrome, GERD, chronic low back pain, obesity Social history: Works at a [employer]. No smoking. No alcohol. Lives with girlfriend. Family history: Reviewed, noncontributory to presentation Physical examination: VITAL SIGNS:98.4, 80, 16, 126 with 72, 99% room air GENERAL: BMI 33, laying in bed, uncomfortable EYES: Pupils equal. Conjunctiva normal. HEENT: External appearance of nose and ears normal, oral cavity dry. NECK: JVD not raised; masses not palpable. HEART: First and second heart sounds are normal; no edema. LUNGS: Respiratory rate normal; clear to auscultation. ABDOMEN: Soft, upper abdominal tenderness, no guarding or rigidity, liver spleen not palpable, no masses palpable. PSYCH: Alert and oriented x3; mood and affect anxious. NEUROLOGICAL: Cranial nerves grossly intact; no facial asymmetry, power and sensation grossly intact. LYMPHATICS: No lymph nodes palpable in the axilla and neck Investigations: white count 16 hemoglobin 16.1 platelets 371 potassium 4.6 lactic acid 2.2 calcium 10.8 Assessment: -Acute exacerbation of cyclical vomiting syndrome. -Chronic low back pain from herniated disc -Obesity BMI 33.911 -lactic acidosis type II from dehydration -Hypercalcemia from dehydration Plan: patient is made nothing by mouth. Started IV Dilaudid. Lovenox for DVT prophylaxis. IV fluids. Also use a scopolamine patch. Care was discussed with the patient. Questions answered. Past Medical History Past Medical History: Asthma, GERD/Reflux Additional Past Medical History / Comment(s): cyclic vomiting syndrome, numbnes s/tingling bilateral feet when vomiting, low back pain/ruptured discs, occupational asthma, History of Any Multi-Drug Resistant Organisms: None Reported Past Surgical History: Adenoidectomy, Appendectomy, Cholecystectomy, Orthopedic Surgery, Tonsillectomy Additional Past Surgical History / Comment(s): EGD, ORIF bilateral ankles, cyclic vomiting Past Anesthesia/Blood Transfusion Reactions: No Reported Reaction Past Psychological History: Anxiety Smoking Status: Never smoker Past Alcohol Use History: None Reported Past Drug Use History: Marijuana - Past Family History Father Family Medical History: No Reported History Mother Family Medical History: Diabetes Mellitus Additional Family Medical History / Comment(s): severe food allergies Medications and Allergies Home Medications Medication Instructions Recorded Confirmed Type Hydrocodone/Acetaminophen [[place] 1 tab PO Q6HR PRN 01/26/18 10/08/19 History 7.5-325] Omeprazole 20 mg PO DAILY 07/10/18 10/08/19 History LORazepam [Ativan] 1 mg PO QID PRN 08/13/18 10/08/19 History Amitriptyline HCl [Elavil] 150 mg PO HS 10/08/19 10/08/19 History Baclofen [Lioresal] 20 mg PO QID PRN 10/08/19 10/08/19 History Tigan 100mg/Ml 200 mg IM ONCE 10/08/19 10/08/19 History Allergies Allergy/AdvReac Type Severity Reaction Status Date / Time No Known Allergies Allergy Verified 10/08/19 12:51 Physical Exam Vitals: Vital Signs Temp Pulse Pulse Resp BP BP Pulse Ox 10/08/19 19:41 75 17 10/08/19 19:38 97.8 F 75 17 154/83 100 10/08/19 17:23 98.0 F 103 H 16 100 10/08/19 16:43 66 16 126/72 99 10/08/19 12:49 98.4 F 80 16 156/78 100 Intake and Output 10/08/19 10/08/19 10/08/19 06:59 14:59 22:59 Other: Voiding Method Toilet # Voids 1 Weight 113.398 kg 113.398 kg Results CBC & Chem 7: 10/08/19 13:28 10/08/19 13:28 Labs: Abnormal Lab Results - Last 24 Hours (Table) 10/08/19 10/08/19 10/08/19 Range/Units 13:28 13:28 13:28 WBC 16.0 H (3.8-10.6) k/uL Neutrophils # 14.5 H (1.3-7.7) k/uL Glucose 123 H (74-99) mg/dL Plasma Lactic Acid [place] 2.2 H* (0.7-2.0) mmol/L Calcium 10.8 H (8.4-10.2) mg/dL Albumin 5.1 H (3.5-5.0) g/dL
[2019-10-08] MEDS: LACTATED RINGERS 1,000 ML IV SCH (22:23)
[2019-10-08] MEDS: ENOXAPARIN 40 MG/0.4 ML SYRINGE SQ SCH (22:23)
[2019-10-08] MEDS ORDERED: SCOPOLAMINE 1.5MG/72HR PATCH TRANSDERM ONE (22:30)
[2019-10-09] MEDS: METOCLOPRAMIDE 5 MG/ML 2 ML VIAL IVP SCH ×3 (00:32→13:23)
[2019-10-09] MEDS: HYDROmorphone 1 MG/ML 1 ML SYRINGE IVP PRN ×3 (00:33→08:34)
[2019-10-09 02:24] VITALS: RESP 16
[2019-10-09] MEDS: LACTATED RINGERS 1,000 ML IV SCH ×2 (05:07→13:22)
[2019-10-09] MEDS: ENOXAPARIN 40 MG/0.4 ML SYRINGE SQ SCH (08:35)
[2019-10-09 10:35] VITALS: BP 133/72; PULSE 92; TEMP 98.5
--- NOTE | 2019-10-09 22:16 | P.DS ---
Providers Date of admission: 10/08/19 13:33 Expected date of discharge: 10/09/19 Attending physician: Wade Rebolledo Primary care physician: Sher Lewis [facility] Course: Chief Complaint: abdominal pain History of presenting complaint: This is a pleasant 34-year-old patient of Dr. Sher Lewis. Chronic stable medical conditions include lower back pain, long history of cyclical vomiting syndrome and multiple admissions for the same. patient increasing abdominal pain starting this morning. Nausea vomiting. No fever no chills. No change in bowel habit. Presently ER for the same. Requesting more IV pain medications but she Dilaudid. At this about always helps him. Uncomfortable in bed. Today-feeling well. No further nausea vomiting. Hungry. Diet ordered. Tolerated full liquid lunch. Discussed with patient. Comfortable going home. Physical examination: VITAL SIGNS: 98.5, 92, 16, 133 with 72, 95% room air GENERAL: BMI 33, sitting up, comfortable EYES: Pupils equal. Conjunctiva normal. HEENT: External appearance of nose and ears normal, oral cavity dry. NECK: JVD not raised; masses not palpable. HEART: First and second heart sounds are normal; no edema. LUNGS: Respiratory rate normal; clear to auscultation. ABDOMEN: Soft, upper abdominal tenderness, no guarding or rigidity, liver spleen not palpable, no masses palpable. PSYCH: Alert and oriented x3; mood and affect normal Investigations: Lactic acid 1.8 white count 16 hemoglobin 16.1 platelets 371 potassium 4.6 lactic acid 2.2 calcium 10.8 Assessment: -Acute exacerbation of cyclical vomiting syndrome. -Chronic low back pain from herniated disc -Obesity BMI 33.911 -lactic acidosis type II from dehydration -Hypercalcemia from dehydration Disposition: Home Patient Condition at Discharge: Good Plan - Discharge Summary New Discharge Prescriptions: Continue Hydrocodone/Acetaminophen [[place] 7.5-325] 1 tab PO Q6HR PRN PRN Reason: Pain Omeprazole 20 mg PO DAILY LORazepam [Ativan] 1 mg PO QID PRN PRN Reason: Anxiety Baclofen [Lioresal] 20 mg PO QID PRN PRN Reason: Muscle Spasm Amitriptyline HCl [Elavil] 150 mg PO HS Tigan 100mg/Ml 200 mg IM ONCE Discharge Medication List Hydrocodone/Acetaminophen [[place] 7.5-325] 1 tab PO Q6HR PRN 01/26/18 [History] Omeprazole 20 mg PO DAILY 07/10/18 [History] LORazepam [Ativan] 1 mg PO QID PRN 08/13/18 [History] Amitriptyline HCl [Elavil] 150 mg PO HS 10/08/19 [History] Baclofen [Lioresal] 20 mg PO QID PRN 10/08/19 [History] Tigan 100mg/Ml 200 mg IM ONCE 10/08/19 [History] Follow up Appointment(s)/Referral(s): Sher Lewis MD [Primary Care Provider] - 1-2 days Patient Instructions/Handouts: Cyclic Vomiting Syndrome (DC) Discharge Disposition: HOME SELF-CARE
== END 2019-10-09 13:43 | disposition home or self-care (01) ==
LOC: EC 12:35 → 1SOBS 13:33
PROVIDERS: ADMIT Hospitalist; ATTEND Hospitalist
DX: R11.15 Cyclical vomiting syndrome unrelated to migraine (principal); E83.52 Hypercalcemia; E87.2 Acidosis; E86.0 Dehydration; J45.909 Unspecified asthma, uncomplicated; K21.9 Gastro-esophageal reflux disease without esophagitis; G89.29 Other chronic pain; M54.5 Low back pain; F41.9 Anxiety disorder, unspecified; E66.9 Obesity, unspecified; Z68.33 Body mass index [BMI] 33.0-33.9, adult; M51.26 Other intervertebral disc displacement, lumbar region; Z79.891 Long term (current) use of opiate analgesic; Z79.899 Other long term (current) drug therapy; Z90.49 Acquired absence of other specified parts of digestive tract; Z83.3 Family history of diabetes mellitus; Z84.89 Family history of other specified conditions
CPT/HCPCS: 96361 ×2; 96372 ×2; 96376 ×3; 96374; 96375; 99285; 36415; 80053; 82150; 83605; 83690; 85025; G0378 ×2; J2060; J2270; J1200; J0500; J2765 ×2; J2405; J1650 ×2; J1170 ×3; C9113

== ENCOUNTER 2019-10-10 19:20 | Observation (INO) | payer OTHER ==
[2019-10-10] MEDS ORDERED: LORazepam 2 MG/ML INJ IV STA ×2 (19:44→21:28)
[2019-10-10] MEDS ORDERED: HYDROmorphone 1 MG/ML 1 ML SYRINGE IVP STA ×3 (19:44→22:34)
[2019-10-10] MEDS ORDERED: METOCLOPRAMIDE 5 MG/ML 2 ML VIAL IVP STA (19:45)
[2019-10-10] MEDS ORDERED: SODIUM CHLORIDE 0.9% 1,000 ML IV ONE (19:45)
[2019-10-10] MEDS ORDERED: SODIUM CHLORIDE 0.9% 500 ML 500 ML IV ONE (19:45)
--- NOTE | 2019-10-10 20:45 | ED ---
Nausea/Vomiting/Diarrhea HPI - General Source: patient Mode of arrival: ambulatory Limitations: no limitations <Jordyn Ochoa - Last Filed: 10/10/19 22:34> <Page Duckworth - Last Filed: 10/11/19 15:56> - General Chief complaint: Nausea/Vomiting/Diarrhea Stated complaint: Revisit- Vomiting Time Seen by Provider: 10/10/19 19:36 - History of Present Illness Initial comments: 34yo male with history of cyclic vomiting syndrome who was sent by Dr. Lewis for admission for nausea, vomiting, abdominal pain. Patient states since his discharge he cannot stop vomiting, this is causing abdominal pain. patient states it is his typical nausea, vomiting, abdominal pain. Dr Lewis called stating he think patient needs longer admission because if the symptoms are controlled the patient can go weeks without an exacerbation. Patient denies bloody vomit, denies chest pain or SOB. Patient actively wretching and vomiting upon arrival. (Jordyn Ochoa) - Related Data Home Medications Medication Instructions Recorded Confirmed Hydrocodone/Acetaminophen [[place] 1 tab PO Q6HR PRN 01/26/18 10/10/19 7.5-325] Omeprazole 20 mg PO DAILY 07/10/18 10/10/19 LORazepam [Ativan] 1 mg PO QID PRN 08/13/18 10/10/19 Amitriptyline HCl [Elavil] 150 mg PO HS 10/08/19 10/10/19 Baclofen [Lioresal] 20 mg PO QID PRN 10/08/19 10/10/19 Allergies Allergy/AdvReac Type Severity Reaction Status Date / Time No Known Allergies Allergy Verified 10/10/19 20:44 Review of Systems ROS Other: All systems not noted in ROS Statement are negative. <Jordyn Ochoa - Last Filed: 10/10/19 22:34> ROS Other: All systems not noted in ROS Statement are negative. <Page Duckworth - Last Filed: 10/11/19 15:56> ROS Statement: Those systems with pertinent positive or pertinent negative responses have been documented in the HPI. Past Medical History Past Medical History: Asthma, GERD/Reflux Additional Past Medical History / Comment(s): cyclic vomiting syndrome, numbness/tingling bilateral feet when vomiting, low back pain/ruptured discs, occupational asthma, History of Any Multi-Drug Resistant Organisms: None Reported Past Surgical History: Adenoidectomy, Appendectomy, Cholecystectomy, Orthopedic Surgery, Tonsillectomy Additional Past Surgical History / Comment(s): EGD, ORIF bilateral ankles, cyclic vomiting Past Anesthesia/Blood Transfusion Reactions: No Reported Reaction Past Psychological History: Anxiety Smoking Status: Never smoker Past Alcohol Use History: None Reported Past Drug Use History: Marijuana - Past Family History Father Family Medical History: No Reported History Mother Family Medical History: Diabetes Mellitus Additional Family Medical History / Comment(s): severe food allergies <Jordyn Ochoa - Last Filed: 10/10/19 22:34> General Exam Limitations: no limitations <Jordyn Ochoa - Last Filed: 10/10/19 22:34> - General Exam Comments Initial Comments: General: The patient is awake and alert, actively vomiting Eye: +3 mm pupils are equal, round and reactive to light, extra-ocular movements are intact. No nystagmus. There is normal conjunctiva bilaterally. No signs of icterus. Ears, nose, mouth and throat: There are moist mucous membranes and no oral lesions. Neck: The neck is supple, there is no tenderness or JVD. Cardiovascular: There is a regular rate and rhythm. No murmur, rub or gallop is appreciated. Respiratory: Lungs are clear to auscultation, respirations are non-labored, breath sounds are equal. No wheezes, stridor, rales, or rhonchi. Gastrointestinal: Soft, non-distended, non-tender abdomen without masses or organomegaly noted. There is no rebound or guarding present. Musculoskeletal: Normal ROM, no tenderness. Strength 5/5. Sensation intact. Radial pulses equal bilaterally 2+. Neurological: A&O x 3. CN II-XII intact grossly, There are no obvious motor or sensory deficits. Coordination appears grossly intact. Speech is normal. Skin: Skin is warm and dry and no rashes or lesions are noted. Psychiatric: Cooperative, appropriate mood & affect, normal judgment. (Jordyn Ochoa) Course Vital Signs 10/10/19 10/10/19 10/10/19 19:23 21:11 21:50 Temperature 97.0 F L Pulse Rate 64 78 Pulse Rate [ Right] Respiratory 18 20 18 Rate Blood Pressure 147/94 138/100 135/100 Blood Pressure [Right Arm] O2 Sat by Pulse 98 98 Oximetry 10/10/19 10/10/19 10/10/19 22:25 22:45 23:06 Temperature 97.9 F 97.1 F L 97.1 F L Pulse Rate 82 82 Pulse Rate [ 70 Right] Respiratory 17 18 18 Rate Blood Pressure 148/89 148/89 Blood Pressure 154/89 [Right Arm] O2 Sat by Pulse 99 99 99 Oximetry Medical Decision Making - Lab Data Result diagrams: 10/10/19 20:34 10/10/19 20:34 <Jordyn Ochoa - Last Filed: 10/10/19 22:34> - Lab Data Result diagrams: 10/10/19 20:34 10/10/19 20:34 <Page Duckworth - Last Filed: 10/11/19 15:56> - Medical Decision Making Patient's primary care provider contact me prior to patient presented emergency department recommending admission he states that his symptoms were not properly controlled her previous admission and he would like his patient to be seen by [facility] Patient lytes stable. Suspected reactive leukocytosis. Patient (Jordyn Ochoa) I was available for consultation in the emergency department. The history and physical exam were done by the midlevel provider. I was consulted for this patients care. I reviewed the case with the midlevel provider and based on the ir presentation of the patient, I agree with the assessment, medical decision making and plan of care as documented. Chart was dictated using [employer] dictation software. Attempts were made to correct any dictation errors however some typographical errors may persist. Patient was seen during a national state of emergency due to the Covid-19 pandemic. (Page Duckworth) - Lab Data Lab Results 10/10/19 10/10/19 10/10/19 Range/Units 20:34 20:34 20:34 WBC 17.2 H (3.8-10.6) k/uL RBC 4.98 (4.30-5.90) m/uL Hgb 14.1 (13.0-17.5) gm/dL Hct 43.5 (39.0-53.0) % MCV 87.4 (80.0-100.0) fL MCH 28.4 (25.0-35.0) pg MCHC 32.5 (31.0-37.0) g/dL RDW 12.6 (11.5-15.5) % Plt Count 324 (150-450) k/uL Neutrophils % 85 % Lymphocytes % 10 % Monocytes % 4 % Eosinophils % 1 % Basophils % 0 % Neutrophils # 14.6 H (1.3-7.7) k/uL Lymphocytes # 1.6 (1.0-4.8) k/uL Monocytes # 0.7 (0-1.0) k/uL Eosinophils # 0.1 (0-0.7) k/uL Basophils # 0.0 (0-0.2) k/uL Sodium 137 (137-145) mmol/L Potassium 3.8 (3.5-5.1) mmol/L Chloride 101 (98-107) mmol/L Carbon Dioxide 26 (22-30) mmol/L Anion Gap 10 mmol/L BUN 18 (9-20) mg/dL Creatinine 1.03 (0.66-1.25) mg/dL Est GFR (CKD-EPI)AfAm >90 (>60 ml/min/1.73 sqM) Est GFR (CKD-EPI)NonAf >90 (>60 ml/min/1.73 sqM) Glucose 102 H (74-99) mg/dL Calcium 10.1 (8.4-10.2) mg/dL Total Bilirubin 0.8 (0.2-1.3) mg/dL AST 24 (17-59) U/L ALT 26 (4-49) U/L Alkaline Phosphatase 71 (38-126) U/L Total Protein 7.1 (6.3-8.2) g/dL Albumin 4.7 (3.5-5.0) g/dL Amylase 62 (30-110) U/L Lipase 53 (23-300) U/L Urine Color Light Yellow Urine Appearance Clear (Clear) Urine pH 8.0 (5.0-8.0) Ur Specific [place] 1.012 (1.001-1.035) Urine Protein Negative (Negative) Urine Glucose (UA) Negative (Negative) Urine Ketones 2+ H (Negative) Urine Blood Negative (Negative) Urine Nitrite Negative (Negative) Urine Bilirubin Negative (Negative) Urine Urobilinogen <2.0 (<2.0) mg/dL Ur Leukocyte Esterase Negative (Negative) Disposition Is patient prescribed a controlled substance at d/c from ED?: No Time of Disposition: 21:45 Decision to Admit Reason: Admit from EC Decision Date: 10/10/19 Decision Time: 21:45 <Jordyn Ochoa - Last Filed: 10/10/19 22:34> <Page Duckworth - Last Filed: 10/11/19 15:56> Clinical Impression: Cyclical vomiting, Nausea Disposition: ADMITTED IP TO THIS HOSP Condition: Stable
[2019-10-10] MEDS: SODIUM CHLORIDE 0.9% 1,000 ML IV SCH (20:48)
[2019-10-10 21:07] LABS: Basophils % (A) 0 %; Eosinophils # (A) 0.1 k/uL (0-0.7); Eosinophils % (A) 1 %; HCT 43.5 % (39.0-53.0); HGB 14.1 gm/dL (13.0-17.5); Lymphocytes # (A) 1.6 k/uL (1.0-4.8); Lymphocytes % (A) 10 %; MCH 28.4 pg (25.0-35.0); MCHC 32.5 g/dL (31.0-37.0); MCV 87.4 fL (80.0-100.0); Mean Platelet Volume 7.9; Monocytes # (A) 0.7 k/uL (0-1.0); Monocytes % (A) 4 %; Neutrophils # (A) 14.6 k/uL (1.3-7.7); Neutrophils % (A) 85 %; Platelet Count 324 k/uL (150-450); RBC 4.98 m/uL (4.30-5.90); RDW 12.6 % (11.5-15.5); WBC 17.2 k/uL (3.8-10.6)
[2019-10-10 21:35] LABS: ALT 26 U/L (4-49); AST 24 U/L (17-59); African American GFR (CKD) >90 (>60 ml/min/1.73 sqM); Albumin 4.7 g/dL (3.5-5.0); Alkaline Phosphatase 71 U/L (38-126); Amylase 62 U/L (30-110); Anion Gap 10 mmol/L; Blood Urea Nitrogen 18 mg/dL (9-20); Calcium 10.1 mg/dL (8.4-10.2); Carbon Dioxide 26 mmol/L (22-30); Chloride 101 mmol/L (98-107); Glucose 102 mg/dL (74-99); Non-African American GFR(CKD) >90 (>60 ml/min/1.73 sqM); Potassium 3.8 mmol/L (3.5-5.1); Sodium 137 mmol/L (137-145); Total Bilirubin 0.8 mg/dL (0.2-1.3); Total Protein 7.1 g/dL (6.3-8.2)
[2019-10-10] MEDS ORDERED: NALOXONE 0.4 MG/ML 1 ML VIAL IV PRN (21:43)
[2019-10-10 21:51] VITALS: RESP 18
[2019-10-10 22:06] LABS: Appearance,Urine Clear (Clear); Bilirubin,Urine Negative (Negative); Blood,Urine Negative (Negative); Color,Urine Light Yellow; Glucose,Urine (UA) Negative (Negative); Ketones,Urine 2+ (Negative); Leukocyte Esterase,Urine Negative (Negative); Nitrite,Urine Negative (Negative); Protein,Urine Negative (Negative); Specific Gravity,Urine 1.012 (1.001-1.035); Urobilinogen,Urine <2.0 mg/dL (<2.0)
[2019-10-10] MEDS ORDERED: METOCLOPRAMIDE 5 MG/ML 2 ML VIAL IVP PRN (23:00)
[2019-10-10] MEDS: HYDROmorphone 0.5 MG/0.5 ML SYRINGE IVP PRN (23:50)
[2019-10-11] MEDS ORDERED: HYDROmorphone 0.5 MG/0.5 ML SYRINGE IVP STA (00:44)
[2019-10-11] MEDS: LORazepam 2 MG/ML INJ IV PRN ×2 (00:53→05:06)
[2019-10-11] MEDS: SODIUM CHLORIDE 0.9% 1,000 ML IV SCH ×2 (03:00→11:30)
[2019-10-11] MEDS: HYDROmorphone 0.5 MG/0.5 ML SYRINGE IVP PRN ×3 (05:06→11:30)
[2019-10-11 09:12] VITALS: BP 139/89; PULSE 63; TEMP 98.1
[2019-10-11] MEDS ORDERED: KETOROLAC 15 MG/ML 1 ML VIAL IM SCH (12:00)
--- NOTE | 2019-10-11 17:06 | P.HPIM ---
History of Present Illness H&P Date: 10/11/19 Chief Complaint: Nausea vomiting and diarrhea 34yo male with history of cyclic vomiting syndrome who was sent by Dr. Lewis for admission for nausea, vomiting, abdominal pain. Patient states since his discharge he cannot stop vomiting, this is causing abdominal pain. patient s tates it is his typical nausea, vomiting, abdominal pain. Dr Lewis called stating he think patient needs longer admission because if the symptoms are controlled the patient can go weeks without an exacerbation. Patient denies bloody vomit, denies chest pain or SOB. Patient actively wretching and vomiting upon arrival. Review of Systems REVIEW OF SYSTEMS: CONSTITUTIONAL: No fever, no malaise, no fatigue. HEENT: No recent visual problems or hearing problems. Denied any sore throat. CARDIOVASCULAR: No chest pain, orthopnea, PND, no palpitations, no syncope. PULMONARY: No shortness of breath, no cough, no hemoptysis. GASTROINTESTINAL: No diarrhea, no nausea, no vomiting, no abdominal pain. NEUROLOGICAL: No headaches, no weakness, no numbness. HEMATOLOGICAL: Denies any bleeding or petechiae. GENITOURINARY: Denies any burning micturition, frequency, or urgency. MUSCULOSKELETAL/RHEUMATOLOGICAL: Denies any joint pain, swelling, or any muscle pain. ENDOCRINE: Denies any polyuria or polydipsia. The rest of the 14-point review of systems is negative. Past Medical History Past Medical History: Asthma, GERD/Reflux Additional Past Medical History / Comment(s): cyclic vomiting syndrome, numbness/tingling bilateral feet when vomiting, low back pain/ruptured discs, occupational asthma, History of Any Multi-Drug Resistant Organisms: None Reported Past Surgical History: Adenoidectomy, Appendectomy, Cholecystectomy, Orthopedic Surgery, Tonsillectomy Additional Past Surgical History / Comment(s): EGD, ORIF bilateral ankles, cyclic vomiting Past Anesthesia/Blood Transfusion Reactions: No Reported Reaction Past Psychological History: Anxiety Smoking Status: Never smoker Past Alcohol Use History: None Reported Past Drug Use History: Marijuana - Past Family History Father Family Medical History: No Reported History Mother Family Medical History: Diabetes Mellitus Additional Family Medical History / Comment(s): severe food allergies Medications and Allergies Home Medications Medication Instructions Recorded Confirmed Type Hydrocodone/Acetaminophen [[place] 1 tab PO Q6HR PRN 01/26/18 10/10/19 History 7.5-325] Omeprazole 20 mg PO DAILY 07/10/18 10/10/19 History LORazepam [Ativan] 1 mg PO QID PRN 08/13/18 10/10/19 History Amitriptyline HCl [Elavil] 150 mg PO HS 10/08/19 10/10/19 History Baclofen [Lioresal] 20 mg PO QID PRN 10/08/19 10/10/19 History Allergies Allergy/AdvReac Type Severity Reaction Status Date / Time No Known Allergies Allergy Verified 10/10/19 20:44 Physical Exam Vitals: Vital Signs Temp Pulse Pulse Resp BP BP Pulse Ox 10/11/19 09:09 98.1 F 63 18 139/89 99 10/11/19 03:00 98 F 72 17 145/80 98 10/10/19 23:06 97.1 F L 82 18 148/89 99 10/10/19 22:45 97.1 F L 82 18 148/89 99 10/10/19 22:25 97.9 F 70 17 154/89 99 10/10/19 21:50 78 18 135/100 98 10/10/19 21:11 20 138/100 10/10/19 19:23 97.0 F L 64 18 147/94 98 Intake and Output 10/10/19 10/11/19 10/11/19 22:59 06:59 14:59 Intake Total 1999 1040 Balance 1999 1040 Intake: Intake, IV Titration 1999 1040 Amount Sodium Chloride 0.9% 1, 1040 000 ml @ 130 mls/hr IV . Q7H42M [facility] Rx#:[id number] Sodium Chloride 0.9% 1, 1000 000 ml @ 999 mls/hr IV . Q1H1M [facility] Rx#:[id number] Sodium Chloride 0.9% 500 1000 ml 500 ml @ 999 mls/hr IV .Q31M [facility] Rx#:[id number] Other: Voiding Method Toilet Toilet # Voids 2 1 Weight 113.398 kg PHYSICAL EXAMINATION: GENERAL: The patient is alert and oriented x3, not in any acute distress. Well developed, well nourished. HEENT: Pupils are round and equally reacting to light. EOMI. No scleral icterus. No conjunctival pallor. Normocephalic, atraumatic. No pharyngeal erythema. No thyromegaly. CARDIOVASCULAR: S1 and S2 present. No murmurs, rubs, or gallops. PULMONARY: Chest is clear to auscultation, no wheezing or crackles. ABDOMEN: Soft, nontender, nondistended, normoactive bowel sounds. No palpable organomegaly. MUSCULOSKELETAL: No joint swelling or deformity. EXTREMITIES: No cyanosis, clubbing, or pedal edema. NEUROLOGICAL: Gross neurological examination did not reveal any focal deficits. SKIN: No rashes. Results CBC & Chem 7: 10/10/19 20:34 10/10/19 20:34 Labs: Abnormal Lab Results - Last 24 Hours (Table) 10/10/19 10/10/19 10/10/19 Range/Units 20:34 20:34 20:34 WBC 17.2 H (3.8-10.6) k/uL Neutrophils # 14.6 H (1.3-7.7) k/uL Glucose 102 H (74-99) mg/dL Urine Ketones 2+ H (Negative) Thrombosis Risk Factor Assmnt - Choose All That Apply Any of the Below Risk Factors Present?: No Other Risk Factors: No Other congenital or acquired thrombophilia - If yes, enter type in comment: No Thrombosis Risk Factor Assessment Level: Very Low Risk Assessment and Plan Assessment: 1. Cyclic vomiting syndrome; acute flare - Patient has been admitted for IV fluid hydration, symptomatic treatment for nausea and has Zofran 8 mg IV every 4 hours when necessary, Ativan 1 mg every 6 hours when necessary and Toradol 30 mg IV every 6 hours when necessary; patient reports uncontrolled pain and requesting Dilaudid to be continued 2. Leukocytosis; possibly reactive; no signs of active infection; we will monitor CBC and initiate sepsis workup if white blood count remains elevated or patient has signs and symptoms of sepsis 3. DVT prophylaxis; SCDs 4. CODE STATUS; full code
--- NOTE | 2019-10-11 17:07 | P.DS ---
Providers Date of admission: 10/10/19 21:54 Expected date of discharge: 10/11/19 Attending physician: Louie Lujan Primary care physician: Sher Lewis [facility] Course: 34yo male with history of cyclic vomiting syndrome who was sent by Dr. Lewis for admission for nausea, vomiting, abdominal pain. Patient states since his discharge he cannot stop vomiting, this is causing abdominal pain. patient states it is his typical nausea, vomiting, abdominal pain. Dr Lewis called stating he think patient needs longer admission because if the symptoms are controlled the patient can go weeks without an exacerbation. Patient denies bloody vomit, denies chest pain or SOB. Patient actively wretching and vomiting upon arrival. Patient was admitted for treatment with IV fluid hydration, IV Ativan, symptomatic treatment with Zofran and pain controlled with Toradol; patient however did not stay for completed treatment and signed out AMA Patient Condition at Discharge: Stable Plan - Discharge Summary Discharge Rx Participant: No New Discharge Prescriptions: No Action Hydrocodone/Acetaminophen [[place] 7.5-325] 1 tab PO Q6HR PRN PRN Reason: Pain Omeprazole 20 mg PO DAILY LORazepam [Ativan] 1 mg PO QID PRN PRN Reason: Anxiety Baclofen [Lioresal] 20 mg PO QID PRN PRN Reason: Muscle Spasm Amitriptyline HCl [Elavil] 150 mg PO HS Discharge Medication List Hydrocodone/Acetaminophen [[place] 7.5-325] 1 tab PO Q6HR PRN 01/26/18 [History] Omeprazole 20 mg PO DAILY 07/10/18 [History] LORazepam [Ativan] 1 mg PO QID PRN 08/13/18 [History] Amitriptyline HCl [Elavil] 150 mg PO HS 10/08/19 [History] Baclofen [Lioresal] 20 mg PO QID PRN 10/08/19 [History] Follow up Appointment(s)/Referral(s): Sher Lewis MD [Primary Care Provider] - 1-2 days Discharge Disposition: Left Against Medical Advice
== END 2019-10-11 13:27 | disposition left against medical advice (07) ==
LOC: EC 19:20 → 1SOBS 21:54
PROVIDERS: ADMIT Hospitalist; ATTEND Hospitalist
DX: R11.15 Cyclical vomiting syndrome unrelated to migraine (principal); R19.7 Diarrhea, unspecified; D72.829 Elevated white blood cell count, unspecified; Z53.29 Procedure and treatment not carried out because of patient's decision for other reasons; K21.9 Gastro-esophageal reflux disease without esophagitis; R20.2 Paresthesia of skin; R20.0 Anesthesia of skin; M51.9 Unspecified thoracic, thoracolumbar and lumbosacral intervertebral disc disorder; J45.998 Other asthma; F41.9 Anxiety disorder, unspecified; Z79.899 Other long term (current) drug therapy; Z90.89 Acquired absence of other organs; Z90.49 Acquired absence of other specified parts of digestive tract; Z98.890 Other specified postprocedural states; Z87.81 Personal history of (healed) traumatic fracture; Z83.3 Family history of diabetes mellitus; Z84.89 Family history of other specified conditions
CPT/HCPCS: 96372; 96376 ×3; 96361; 96374; 96375; 99284; 36415; 80053; 82150; 83690; 85025; 81003; G0378 ×2; J2060 ×2; J2765 ×2; J1170 ×3; J1885

== ENCOUNTER 2020-01-26 19:24 | Emergency (ER) | payer OTHER ==
[2020-01-26] MEDS ORDERED: diphenhydrAMINE 50 MG/ML 1 ML VIAL IVP STA (19:46)
[2020-01-26] MEDS ORDERED: HYDROmorphone 1 MG/ML 1 ML SYRINGE IVP STA ×2 (19:46→20:35)
[2020-01-26] MEDS ORDERED: SODIUM CHLORIDE 0.9% 500 ML 500 ML IV ONE (19:46)
[2020-01-26] MEDS ORDERED: SODIUM CHLORIDE 0.9% 1,000 ML IV ONE (19:46)
[2020-01-26] MEDS ORDERED: LORazepam 2 MG/ML INJ IV STA (19:46)
[2020-01-26] MEDS ORDERED: PANTOPRAZOLE 40 MG/10 ML VIAL IVP STA (19:46)
[2020-01-26] MEDS ORDERED: SODIUM CHLORIDE 0.9% 1,000 ML IV SCH (20:00)
[2020-01-26 20:11] LABS: Basophils % (A) 0 %; Eosinophils % (A) 1 %; HCT 46.8 % (39.0-53.0); HGB 16.2 gm/dL (13.0-17.5); Lymphocytes % (A) 14 %; MCHC 34.5 g/dL (31.0-37.0); MCV 86.8 fL (80.0-100.0); Monocytes % (A) 5 %; Neutrophils % (A) 79 %; Platelet Count 394 k/uL (150-450); RBC 5.39 m/uL (4.30-5.90); RDW 12.7 % (11.5-15.5); WBC 13.8 k/uL (3.8-10.6)
[2020-01-26 20:12] LABS: Basophils # (A) 0.1 k/uL (0-0.2); Eosinophils # (A) 0.1 k/uL (0-0.7); Lymphocytes # (A) 1.9 k/uL (1.0-4.8); Monocytes # (A) 0.7 k/uL (0-1.0); Neutrophils # (A) 10.9 k/uL (1.3-7.7)
[2020-01-26 20:25] LABS: ALT 53 U/L (4-49); AST 29 U/L (17-59); African American GFR (CKD) >90 (>60 ml/min/1.73 sqM); Albumin 5.2 g/dL (3.5-5.0); Alkaline Phosphatase 98 U/L (38-126); Anion Gap 10 mmol/L; Blood Urea Nitrogen 15 mg/dL (9-20); Calcium 10.7 mg/dL (8.4-10.2); Carbon Dioxide 24 mmol/L (22-30); Chloride 107 mmol/L (98-107); Glucose 141 mg/dL (74-99); Lipase 85 U/L (23-300); Non-African American GFR(CKD) >90 (>60 ml/min/1.73 sqM); Potassium 3.8 mmol/L (3.5-5.1); Sodium 141 mmol/L (137-145); Total Bilirubin 1.7 mg/dL (0.2-1.3); Total Protein 8.4 g/dL (6.3-8.2)
--- NOTE | 2020-01-26 20:52 | ED ---
Nausea/Vomiting/Diarrhea HPI - General Chief complaint: Nausea/Vomiting/Diarrhea Stated complaint: Abd Pain Time Seen by Provider: 01/26/20 19:33 Source: patient, family Mode of arrival: ambulatory Limitations: no limitations - History of Present Illness Initial comments: 34-year-old female history of gastroparesis presenting for chief complaint of abdominal pain all over, vomiting.Patient state he is experiencing his typical symptoms associated with his gastroparesis. He denies any changes. Denies chest pain shortness of breath blood he vomited dark stools. Patient states his vomit is yellow as it usually is. He states he comes here and when the pain is controlled his symptoms are usually better patient denies additional complaints. he is dry heaving on arrival. emesis basin filled with yellowish vomit. No blood noted. - Related Data Home Medications Medication Instructions Recorded Confirmed Hydrocodone/Acetaminophen [[place] 1 tab PO Q6HR PRN 01/26/18 10/10/19 7.5-325] Omeprazole 20 mg PO DAILY 07/10/18 10/10/19 LORazepam [Ativan] 1 mg PO QID PRN 08/13/18 10/10/19 Amitriptyline HCl [Elavil] 150 mg PO HS 10/08/19 10/10/19 Baclofen [Lioresal] 20 mg PO QID PRN 10/08/19 10/10/19 Allergies Allergy/AdvReac Type Severity Reaction Status Date / Time No Known Allergies Allergy Verified 01/26/20 19:32 Review of Systems ROS Statement: Those systems with pertinent positive or pertinent negative responses have been documented in the HPI. ROS Other: All systems not noted in ROS Statement are negative. Past Medical History Past Medical History: Asthma, GERD/Reflux Additional Past Medical History / Comment(s): cyclic vomiting syndrome, numbness/tingling bilateral feet when vomiting, low back pain/ruptured discs, occupational asthma, History of Any Multi-Drug Resistant Organisms: None Reported Past Surgical History: Adenoidectomy, Appendectomy, Cholecystectomy, Orthopedic Surgery, Tonsillectomy Additional Past Surgical History / Comment(s): EGD, ORIF bilateral ankles, cyclic vomiting Past Anesthesia/Blood Transfusion Reactions: No Reported Reaction Past Psychological History: Anxiety Smoking Status: Never smoker Past Alcohol Use History: None Reported Past Drug Use History: Marijuana - Past Family History Father Family Medical History: No Reported History Mother Family Medical History: Diabetes Mellitus Additional Family Medical History / Comment(s): severe food allergies General Exam - General Exam Comments Initial Comments: General: The patient is awake and alert, vomiting Eye: Pupils are equal, round and reactive to light, extra-ocular movements are intact. No nystagmus. There is normal conjunctiva bilaterally. No signs of icterus. Cardiovascular: There is a regular rate and rhythm. No murmur, rub or gallop is appreciated. Respiratory: Lungs are clear to auscultation, respirations are non-labored, breath sounds are equal. No wheezes, stridor, rales, or rhonchi. Gastrointestinal: Soft, non-distended, diffuse abdominal tenderness, abdomen without masses or organomegaly noted. There is no rebound or guarding present. Musculoskeletal: Normal ROM, no tenderness. Strength 5/5. Sensation intact. Radial pulses equal bilaterally 2+. Neurological: A&O x 3. CN II-XII intact grossly, There are no obvious motor or sensory deficits. Coordination appears grossly intact. Speech is normal. Skin: Skin is warm and dry and no rashes or lesions are noted. Psychiatric: Cooperative, appropriate mood & affect, normal judgment. Limitations: no limitations Course Vital Signs 01/26/20 01/26/20 01/26/20 19:29 20:32 21:36 Temperature 98.5 F 98.3 F Pulse Rate 77 64 74 Respiratory 20 20 18 Rate Blood Pressure 147/104 145/95 121/90 O2 Sat by Pulse 100 100 99 Oximetry Medical Decision Making - Medical Decision Making Patient has history of cyclic vomiting. denies changes in characteristic. no blood in vomit. symptoms controlled in ER. patient labs no critical findings. pt is agreeable to discharge with close return parameters. he does not appear hodan jennifer and has a ride home. walked to the waiting room until ride is here (on her way). Dr Damico is agreeable to care plan as discussed. - Lab Data Result diagrams: 01/26/20 19:49 01/26/20 19:49 Lab Results 01/26/20 01/26/20 Range/Units 19:49 19:49 WBC 13.8 H (3.8-10.6) k/uL RBC 5.39 (4.30-5.90) m/uL Hgb 16.2 (13.0-17.5) gm/dL Hct 46.8 (39.0-53.0) % MCV 86.8 (80.0-100.0) fL MCH 30.0 (25.0-35.0) pg MCHC 34.5 (31.0-37.0) g/dL RDW 12.7 (11.5-15.5) % Plt Count 394 (150-450) k/uL MPV 7.0 Neutrophils % 79 % Lymphocytes % 14 % Monocytes % 5 % Eosinophils % 1 % Basophils % 0 % Neutrophils # 10.9 H (1.3-7.7) k/uL Lymphocytes # 1.9 (1.0-4.8) k/uL Monocytes # 0.7 (0-1.0) k/uL Eosinophils # 0.1 (0-0.7) k/uL Basophils # 0.1 (0-0.2) k/uL Sodium 141 (137-145) mmol/L Potassium 3.8 (3.5-5.1) mmol/L Chloride 107 (98-107) mmol/L Carbon Dioxide 24 (22-30) mmol/L Anion Gap 10 mmol/L BUN 15 (9-20) mg/dL Creatinine 0.96 (0.66-1.25) mg/dL Est GFR (CKD-EPI)AfAm >90 (>60 ml/min/1.73 sqM) Est GFR (CKD-EPI)NonAf >90 (>60 ml/min/1.73 sqM) Glucose 141 H (74-99) mg/dL Calcium 10.7 H (8.4-10.2) mg/dL Total Bilirubin 1.7 H (0.2-1.3) mg/dL AST 29 (17-59) U/L ALT 53 H (4-49) U/L Alkaline Phosphatase 98 (38-126) U/L Total Protein 8.4 H (6.3-8.2) g/dL Albumin 5.2 H (3.5-5.0) g/dL Lipase 85 (23-300) U/L Disposition Clinical Impression: Cyclic vomiting syndrome, Vomiting Disposition: HOME SELF-CARE Condition: Good Instructions (If sedation given, give patient instructions): Acute Nausea and Vomiting (ED) Additional Instructions: Please use medication as discussed. Please follow-up with family doctor in the next 2 days.. Please return to emergency room if the symptoms increase or worsen or for any other concerns. Is patient prescribed a controlled substance at d/c from ED?: No Referrals: Sher Lewis MD [Primary Care Provider] - 1-2 days Time of Disposition: 21:15
[2020-01-26] MEDS ORDERED: HYDROmorphone 0.5 MG/0.5 ML SYRINGE IVP STA (21:19)
[2020-01-26 21:39] VITALS: BP 121/90; PULSE 74; RESP 18; TEMP 98.3
== END 2020-01-26 21:39 | disposition home or self-care (01) ==
LOC: EC 19:24
DX: R11.15 Cyclical vomiting syndrome unrelated to migraine (principal); K21.9 Gastro-esophageal reflux disease without esophagitis; Z79.899 Other long term (current) drug therapy; Z90.49 Acquired absence of other specified parts of digestive tract; Z90.89 Acquired absence of other organs
CPT/HCPCS: 36415; 80053; 83690; 85025; 99284; 96374; 96375 ×3; 96376 ×2; 96361; J2060; J1200; J1170 ×2; C9113

== ENCOUNTER 2020-01-26 23:52 | Observation (INO) | payer OTHER ==
[2020-01-27] MEDS ORDERED: HYDROmorphone 1 MG/ML 1 ML SYRINGE IVP STA (00:06)
[2020-01-27] MEDS ORDERED: LORazepam 2 MG/ML INJ IV STA (00:06)
--- NOTE | 2020-01-27 00:18 | ED ---
Nausea/Vomiting/Diarrhea HPI - General Chief complaint: Nausea/Vomiting/Diarrhea Stated complaint: Abd Pain - Revisit Time Seen by Provider: 01/27/20 00:02 Source: patient Mode of arrival: ambulatory Limitations: no limitations - History of Present Illness Initial comments: 34-year-old male history of cyclic vomiting present today for chief complaint of vomiting abdominal pain patient was here earlier with same complaint he denies any new symptoms denies blood in his vomit. Patient states sometimes he needs to be admitted for this. Patient denies fevers or additional complaints patient does smoke marijuana - Related Data Home Medications Medication Instructions Recorded Confirmed Hydrocodone/Acetaminophen [[place] 1 tab PO Q6HR PRN 01/26/18 10/10/19 7.5-325] Omeprazole 20 mg PO DAILY 07/10/18 10/10/19 LORazepam [Ativan] 1 mg PO QID PRN 08/13/18 10/10/19 Amitriptyline HCl [Elavil] 150 mg PO HS 10/08/19 10/10/19 Baclofen [Lioresal] 20 mg PO QID PRN 10/08/19 10/10/19 Allergies Allergy/AdvReac Type Severity Reaction Status Date / Time No Known Allergies Allergy Verified 01/26/20 23:59 Review of Systems ROS Statement: Those systems with pertinent positive or pertinent negative responses have been documented in the HPI. ROS Other: All systems not noted in ROS Statement are negative. Past Medical History Past Medical History: Asthma, GERD/Reflux Additional Past Medical History / Comment(s): cyclic vomiting syndrome, numbness/tingling bilateral feet when vomiting, low back pain/ruptured discs, occupational asthma, History of Any Multi-Drug Resistant Organisms: None Reported Past Surgical History: Adenoidectomy, Appendectomy, Cholecystectomy, Orthopedic Surgery, Tonsillectomy Additional Past Surgical History / Comment(s): EGD, ORIF bilateral ankles, cyclic vomiting Past Anesthesia/Blood Transfusion Reactions: No Reported Reaction Past Psychological History: Anxiety Smoking Status: Never smoker Past Alcohol Use History: None Reported Past Drug Use History: Marijuana - Past Family History Father Family Medical History: No Reported History Mother Family Medical History: Diabetes Mellitus Additional Family Medical History / Comment(s): severe food allergies General Exam - General Exam Comments Initial Comments: General: The patient is awake and alert, vomiting Eye: +3 mm pupils are equal, round and reactive to light, extra-ocular movements are intact. No nystagmus. There is normal conjunctiva bilaterally. No signs of icterus. Ears, nose, mouth and throat: There are moist mucous membranes and no oral lesions. Neck: The neck is supple, there is no tenderness or JVD. Cardiovascular: There is a regular rate and rhythm. No murmur, rub or gallop is appreciated. Respiratory: Lungs are clear to auscultation, respirations are non-labored, breath sounds are equal. No wheezes, stridor, rales, or rhonchi. Gastrointestinal: Soft, non-distended, diffuse abdominal tenderness, abdomen without masses or organomegaly noted. There is no rebound or guarding present. Musculoskeletal: Normal ROM, no tenderness. Strength 5/5. Sensation intact. Radial pulses equal bilaterally 2+. Neurological: A&O x 3. CN II-XII intact grossly, There are no obvious motor or sensory deficits. Coordination appears grossly intact. Speech is normal. Skin: Skin is warm and dry and no rashes or lesions are noted. Psychiatric: Cooperative, appropriate mood & affect, normal judgment. Limitations: no limitations Course Vital Signs 01/26/20 23:56 Temperature 98.7 F Pulse Rate 78 Respiratory 22 Rate Blood Pressure 154/100 O2 Sat by Pulse 100 Oximetry - Reevaluation(s) Reevaluation #1: sleeping on reevaluation, no vomiting 01/27/20 01:34 Medical Decision Making - Medical Decision Making 34-year-old male history of cyclic vomiting. History of marijuana use. Patient states there is typical symptoms. Symptoms uncontrolled after multiple times throughout the day as well as after previous visit to the emergency department and throughout his visit this evening. Dr. Cox accepted admission for symptom control Disposition Clinical Impression: Nausea & vomiting, Abdominal pain Disposition: HOME SELF-CARE Condition: Good Instructions (If sedation given, give patient instructions): Acute Nausea and Vomiting (ED) Additional Instructions: Please use medication as discussed. Please follow-up with family doctor in the next 2 days.. Please return to emergency room if the symptoms increase or worsen or for any other concerns. Is patient prescribed a controlled substance at d/c from ED?: No Referrals: Sher Lewis MD [Primary Care Provider] - 1-2 days Time of Disposition: 01:34
[2020-01-27] MEDS ORDERED: SODIUM CHLORIDE 0.9% 500 ML 500 ML IV ONE (00:24)
[2020-01-27] MEDS ORDERED: SODIUM CHLORIDE 0.9% 1,000 ML IV ONE (00:24)
[2020-01-27] MEDS ORDERED: METOCLOPRAMIDE 5 MG/ML 2 ML VIAL IVP STA (01:45)
[2020-01-27] MEDS ORDERED: ONDANSETRON 4 MG/2 ML VIAL IVP PRN (01:50)
[2020-01-27] MEDS ORDERED: NALOXONE 0.4 MG/ML 1 ML VIAL IV PRN (02:01)
[2020-01-27] MEDS ORDERED: HYDROmorphone 0.5 MG/0.5 ML SYRINGE IVP STA (02:15)
[2020-01-27] MEDS ORDERED: HEPARIN SODIUM,PORCINE 5,000 UNIT/ML 1 ML VIAL SQ STA (02:51)
--- NOTE | 2020-01-27 02:52 | P.HPIM ---
History of Present Illness H&P Date: 01/27/20 Patient is a 34-year-old male with a PMH of cyclic vomiting syndrome (multiple hospitalizations), marijuana abuse, and chronic lower back pain who presented to the emergency room with complaints of intractable nausea and vomiting. The patient notes that his symptoms started earlier today at 3 PM immediately following lunch. Notes associated epigastric abdominal pain, 8 out of 10, nonradiating, with no alleviating or exacerbating features. Denied additional complaints. Notes that his current symptoms are the exact same as those of his previous episodes. The patient had initially presented to the hospital earlier today and was discharged home but then returned shortly after. Patient notes smoking marijuana daily for the past several years. Denied chest pain, shortness of breath, fever, chills, cough. Laboratory evaluation was reviewed and was remarkable for WBC count 13.8, glucose 141, no symptom 0.7, total bilirubin 1.7, ALT 53. Review of Systems Pertinent positives and negatives as discussed in HPI, a complete review of systems was performed and all other systems are negative. Past Medical History Past Medical History: Asthma, GERD/Reflux Additional Past Medical History / Comment(s): cyclic vomiting syndrome, numbness/tingling bilateral feet when vomiting, low back pain/ruptured discs, occupational asthma, History of Any Multi-Drug Resistant Organisms: None Reported Past Surgical History: Adenoidectomy, Appendectomy, Cholecystectomy, Orthopedic Surgery, Tonsillectomy Additional Past Surgical History / Comment(s): EGD, ORIF bilateral ankles, cyclic vomiting Past Anesthesia/Blood Transfusion Reactions: No Reported Reaction Past Psychological History: Anxiety Smoking Status: Never smoker Past Alcohol Use History: None Reported Past Drug Use History: Marijuana - Past Family History Father Family Medical History: No Reported History Mother Family Medical History: Diabetes Mellitus Additional Family Medical History / Comment(s): severe food allergies Medications and Allergies Home Medications Medication Instructions Recorded Confirmed Type Hydrocodone/Acetaminophen [[place] 1 tab PO Q6HR PRN 01/26/18 10/10/19 History 7.5-325] Omeprazole 20 mg PO DAILY 07/10/18 10/10/19 History LORazepam [Ativan] 1 mg PO QID PRN 08/13/18 10/10/19 History Amitriptyline HCl [Elavil] 150 mg PO HS 10/08/19 10/10/19 History Baclofen [Lioresal] 20 mg PO QID PRN 10/08/19 10/10/19 History Allergies Allergy/AdvReac Type Severity Reaction Status Date / Time No Known Allergies Allergy Verified 01/26/20 23:59 Physical Exam Vitals: Vital Signs Temp Pulse Resp BP Pulse Ox 01/26/20 23:56 98.7 F 78 22 154/100 100 Intake and Output 01/26/20 01/26/20 01/27/20 14:59 22:59 06:59 Other: Weight 113.398 kg General: non toxic, appears uncomfortable due to nausea, appears at stated age, obese Derm: no unusual rashes/lesions no unusual ecchymoses, warm, dry Head: atraumatic, normocephalic, symmetric Eyes: EOMI, no lid lag, anicteric sclera, pupils equal round reactive to light ENT: Nose and ears atraumatic, no thrush, no pharyngeal erythema Neck: No thyromegaly, no cervical lymphadenopathy, trachea midline, supple Mouth: no lip lesion, mucus membranes moist Cardiovascular: S1S2 reg, no murmur, positive posterior tibial pulse bilateral, no edema, capillary refill less than 2 seconds Lungs: CTA bilateral, no rhonchi, no rales , no accessory muscle use Abdominal: soft, nontender to palpation, no guarding, no appreciable organomegaly, normal bowel sounds Ext: no gross muscle atrophy, muscle strength 5 out of 5 in all 4 extremities grossly, no contractures, Neuro: CN II-XI grossly intact, light touch intact all 4 extremities, finger to nose within normal limits, Psych: Alert, oriented, appropriate affect Assessment and Plan Plan: Cyclic vomiting syndrome, acute exacerbation -Continue nothing by mouth for now -Anti-emetics -IV fluids -Check lactic acid levels -Patient advised on the importance of marijuana cessation Hypercalcemia -Likely due to dehydration -Continue with IV fluids Leukocytosis -No signs of active infection at this time -Likely due to acute stressor -Monitor for now DVT prophylaxis -Heparin subq The patient is admitted with an anticipated less than 2 midnight stay for evaluation of cyclic vomiting syndrome CODE STATUS: Full Code Discussed with: Patient Anticipated discharge date: in am Anticipated discharge place: home A total of 35 minutes was spent on the care of this complex patient more than 50% of the time was spent in counseling and care coordination.
[2020-01-27] MEDS: SODIUM CHLORIDE 0.9% 1,000 ML IV SCH ×4 (03:21→23:55)
[2020-01-27] MEDS: HYDROmorphone 1 MG/ML 1 ML SYRINGE IVP PRN ×6 (05:20→21:24)
[2020-01-27] MEDS: PANTOPRAZOLE 40 MG/10 ML VIAL IVP SCH (08:14)
[2020-01-27 08:51] LABS: HGB 13.6 gm/dL (13.0-17.5); MCH 29.9 pg (25.0-35.0); MCHC 34.1 g/dL (31.0-37.0); MCV 87.8 fL (80.0-100.0); Mean Platelet Volume 7.3; Platelet Count 318 k/uL (150-450); RBC 4.55 m/uL (4.30-5.90); RDW 12.7 % (11.5-15.5)
[2020-01-27 08:57] LABS: African American GFR (CKD) >90 (>60 ml/min/1.73 sqM); Anion Gap 8 mmol/L; Blood Urea Nitrogen 10 mg/dL (9-20); Calcium 9.4 mg/dL (8.4-10.2); Carbon Dioxide 27 mmol/L (22-30); Chloride 102 mmol/L (98-107); Glucose 111 mg/dL (74-99); Non-African American GFR(CKD) >90 (>60 ml/min/1.73 sqM); Potassium 3.8 mmol/L (3.5-5.1); Sodium 137 mmol/L (137-145)
[2020-01-27] MEDS: HEPARIN SODIUM,PORCINE 5,000 UNIT/ML 1 ML VIAL SQ SCH ×2 (09:44→21:25)
[2020-01-27] MEDS: ONDANSETRON 4 MG/2 ML VIAL IVP PRN ×2 (11:27→18:14)
--- NOTE | 2020-01-27 11:44 | P.PN ---
Subjective Progress Note Date: 01/27/20 Patient is still complaining of severe abdominal pain that is mostly located in the right upper quadrant. He denies any nausea or vomiting this morning. He said that his symptoms are a lot better compared to yesterday. Objective - Vital Signs Vital signs: Vital Signs Temp 98.5 F 01/27/20 07:55 Pulse 98 01/27/20 07:55 Resp 20 01/27/20 09:00 BP 133/71 01/27/20 07:55 Pulse Ox 100 01/27/20 07:55 Intake & Output 01/26/20 01/27/20 01/27/20 18:59 06:59 18:59 Output Total 600 Balance -600 Weight 113.398 kg Output: Emesis 600 Other: Voiding Method Toilet Toilet # Voids 1 - Exam General: The patient is awake and alert, in no distress Eye: there is normal conjunctiva bilaterally. Neck: The neck is supple, there is no JVD. Cardiovascular: Normal S1-S2, no S3-S4, no murmurs. Respiratory: Lungs clear to auscultation bilaterally Gastrointestinal: Abdomen is soft, there is moderate tenderness to palpation in the right upper quadrant Musculoskeletal: There is no pedal edema. Neurological:. Speech is normal. Skin: Skin is warm and dry - Labs CBC & Chem 7: 01/27/20 08:03 01/27/20 08:03 Labs: Abnormal Lab Results - Last 24 Hours (Table) 01/27/20 01/27/20 Range/Units 08:03 08:03 WBC 14.0 H (3.8-10.6) k/uL Creatinine 0.65 L (0.66-1.25) mg/dL Glucose 111 H (74-99) mg/dL Assessment and Plan Assessment: Patient is a 34-year-old male with a PMH of cyclic vomiting syndrome (multiple hospitalizations), marijuana abuse, and chronic lower back pain who presented to the emergency room with complaints of intractable nausea and vomiting. Patient notes smoking marijuana daily for the past several years. Patient was evaluated in the ER and placed on observation for further management of his medical problems noted below. Cyclic vomiting syndrome, acute exacerbation -Start liquid diet and advance as tolerated -Anti-emetics -IV fluids - lactic acid levels normal -Patient advised on the importance of marijuana cessation -Patient reported a history of cholecystectomy and appendectomy Hypercalcemia -Likely due to dehydration -Improved with IV fluid Leukocytosis -No signs of active infection at this time -Likely due to acute stressor DVT prophylaxis -Heparin subq Continue current management.
[2020-01-28] MEDS: HYDROmorphone 1 MG/ML 1 ML SYRINGE IVP PRN ×4 (00:37→09:43)
[2020-01-28 03:43] VITALS: TEMP 98.3
[2020-01-28] MEDS: SODIUM CHLORIDE 0.9% 1,000 ML IV SCH (06:00)
[2020-01-28 08:10] VITALS: BP 147/73; PULSE 92; RESP 16
[2020-01-28 08:13] LABS: Basophils % (A) 0 %; Eosinophils # (A) 0.1 k/uL (0-0.7); Eosinophils % (A) 1 %; HCT 41.8 % (39.0-53.0); HGB 13.9 gm/dL (13.0-17.5); Lymphocytes % (A) 25 %; MCHC 33.2 g/dL (31.0-37.0); MCV 87.5 fL (80.0-100.0); Mean Platelet Volume 7.3; Monocytes # (A) 0.5 k/uL (0-1.0); Monocytes % (A) 6 %; Neutrophils # (A) 5.5 k/uL (1.3-7.7); Neutrophils % (A) 66 %; Platelet Count 288 k/uL (150-450); RBC 4.78 m/uL (4.30-5.90); WBC 8.3 k/uL (3.8-10.6)
--- NOTE | 2020-01-28 09:34 | P.DS ---
Providers Date of admission: 01/27/20 02:57 Expected date of discharge: 01/28/20 Attending physician: Marina Sagastume MD Primary care physician: Sher Lewis [facility] Course: Patient is a 34-year-old male with a PMH of cyclic vomiting syndrome (multiple hospitalizations), marijuana abuse, and chronic lower back pain who presented to the emergency room with complaints of intractable nausea and vomiting. Patient notes smoking marijuana daily for the past several years. Patient was evaluated in the ER and placed on observation for further management of his medical problems noted below. Cyclic vomiting syndrome, acute exacerbation -Improved with symptomatic management. On the day of discharge, patient was able to tolerate regular diet with no difficulty. -Patient advised on the importance of marijuana cessation -Patient reported a history of cholecystectomy and appendectomy Hypercalcemia -Likely due to dehydration -Improved with IV fluid Leukocytosis, resolved -No signs of active infection at this time -Likely due to acute stressor Patient will be discharged home in a stable condition. For further details about this hospitalization please refer to the electronic chart. Time spent on discharge > 30 minutes including counseling and coordination of care Patient Condition at Discharge: Stable Plan - Discharge Summary Discharge Rx Participant: No New Discharge Prescriptions: Continue Omeprazole 20 mg PO DAILY LORazepam [Ativan] 1 mg PO QID PRN PRN Reason: Anxiety Baclofen [Lioresal] 20 mg PO QID PRN PRN Reason: Muscle Spasm Amitriptyline HCl [Elavil] 150 mg PO HS Hydrocodone/Acetaminophen [[place] 10-325] 1 tab PO Q6H PRN PRN Reason: Pain Discharge Medication List Omeprazole 20 mg PO DAILY 07/10/18 [History] LORazepam [Ativan] 1 mg PO QID PRN 08/13/18 [History] Amitriptyline HCl [Elavil] 150 mg PO HS 10/08/19 [History] Baclofen [Lioresal] 20 mg PO QID PRN 10/08/19 [History] Hydrocodone/Acetaminophen [[place] 10-325] 1 tab PO Q6H PRN 01/27/20 [History] Follow up Appointment(s)/Referral(s): Sher Lewis MD [Primary Care Provider] - 1-2 days Patient Instructions/Handouts: Acute Nausea and Vomiting (ED) Activity/Diet/Wound Care/Special Instructions: Please use medication as discussed. Please follow-up with family doctor in the next 2 days.. Please return to emergency room if the symptoms increase or worsen or for any other concerns. Stop brice Discharge Disposition: HOME SELF-CARE
[2020-01-28] MEDS: PANTOPRAZOLE 40 MG/10 ML VIAL IVP SCH (09:37)
== END 2020-01-28 11:06 | disposition home or self-care (01) ==
LOC: EC 23:52 → 1SOBS 01-27 02:57
PROVIDERS: ADMIT Internal Medicine; ATTEND Internal Medicine
DX: R11.15 Cyclical vomiting syndrome unrelated to migraine (principal); E83.52 Hypercalcemia; D72.829 Elevated white blood cell count, unspecified; R10.11 Right upper quadrant pain; K21.9 Gastro-esophageal reflux disease without esophagitis; R20.0 Anesthesia of skin; R20.2 Paresthesia of skin; F12.10 Cannabis abuse, uncomplicated; J45.998 Other asthma; G89.29 Other chronic pain; M51.26 Other intervertebral disc displacement, lumbar region; Z90.49 Acquired absence of other specified parts of digestive tract; Z98.890 Other specified postprocedural states; Z90.09 Acquired absence of other part of head and neck; Z90.89 Acquired absence of other organs; F41.9 Anxiety disorder, unspecified; Z83.3 Family history of diabetes mellitus; Z84.89 Family history of other specified conditions; Z79.899 Other long term (current) drug therapy; Z79.891 Long term (current) use of opiate analgesic
CPT/HCPCS: 96372 ×2; 96375 ×2; 96376 ×3; 96361; 96374; 99284; 80048; 83605; 85025; 85027; G0378 ×2; J2060; J1644; J2765; J2405; J1170 ×3; C9113 ×2

== ENCOUNTER 2020-02-02 12:20 | Emergency (ER) | payer OTHER ==
[2020-02-02 12:24] VITALS: TEMP 97.9
[2020-02-02] MEDS ORDERED: SODIUM CHLORIDE 0.9% 1,000 ML IV STA (12:30)
[2020-02-02] MEDS ORDERED: ONDANSETRON 4 MG/2 ML VIAL IVP STA (12:30)
[2020-02-02] MEDS ORDERED: HYDROmorphone 1 MG/ML 1 ML SYRINGE IVP STA ×2 (12:31→14:09)
[2020-02-02 13:10] LABS: Basophils % (A) 0 %; Eosinophils # (A) 0.1 k/uL (0-0.7); Eosinophils % (A) 1 %; HGB 16.8 gm/dL (13.0-17.5); Lymphocytes # (A) 1.6 k/uL (1.0-4.8); Lymphocytes % (A) 10 %; MCH 29.7 pg (25.0-35.0); MCHC 34.2 g/dL (31.0-37.0); Mean Platelet Volume 7.6; Monocytes # (A) 0.5 k/uL (0-1.0); Monocytes % (A) 3 %; Neutrophils # (A) 13.1 k/uL (1.3-7.7); Neutrophils % (A) 85 %; Platelet Count 335 k/uL (150-450); RBC 5.63 m/uL (4.30-5.90); RDW 13.3 % (11.5-15.5); WBC 15.5 k/uL (3.8-10.6)
[2020-02-02 13:12] LABS: ALT 43 U/L (4-49); AST 23 U/L (17-59); African American GFR (CKD) >90 (>60 ml/min/1.73 sqM); Albumin 5.3 g/dL (3.5-5.0); Alkaline Phosphatase 77 U/L (38-126); Anion Gap 11 mmol/L; Blood Urea Nitrogen 15 mg/dL (9-20); Calcium 10.8 mg/dL (8.4-10.2); Carbon Dioxide 26 mmol/L (22-30); Chloride 103 mmol/L (98-107); Glucose 108 mg/dL (74-99); Lipase 65 U/L (23-300); Non-African American GFR(CKD) >90 (>60 ml/min/1.73 sqM); Potassium 4.2 mmol/L (3.5-5.1); Sodium 140 mmol/L (137-145); Total Bilirubin 0.6 mg/dL (0.2-1.3); Total Protein 8.6 g/dL (6.3-8.2)
[2020-02-02] MEDS ORDERED: METOCLOPRAMIDE 5 MG/ML 2 ML VIAL IVP STA (14:17)
[2020-02-02] MEDS ORDERED: PANTOPRAZOLE 40 MG/10 ML VIAL IVP STA (14:17)
[2020-02-02 14:34] VITALS: PULSE 80
[2020-02-02] MEDS ORDERED: LORazepam 2 MG/ML INJ IV STA (14:41)
[2020-02-02] MEDS ORDERED: FAMOTIDINE 20 MG/2 ML VIAL IV STA (14:41)
--- NOTE | 2020-02-02 15:53 | ED ---
General Adult HPI - General Chief complaint: Abdominal Pain Stated complaint: Vomiting Time Seen by Provider: 02/02/20 12:27 Source: patient, RN notes reviewed, old records reviewed Mode of arrival: wheelchair Limitations: no limitations - History of Present Illness Initial comments: 34-year-old male patient to ED patient has history of chronic abdominal pain and repeated ER visits. Presents to ED with abdominal pain nausea and vomiting. States that the pain is epigastric in nature. Reports that it is identical to his pain in the past. Denies any other complaints. Systemic: Pt denies fatigue, fever/chills, rash. Pt denies weakness, night sweats, weight loss. Neuro: Pt denies headache, visual disturbances, syncope or pre-syncope. HEENT: Pt denies ocular discharge or irritation, otalgia, rhinorrhea, pharyngitis or notable lymphadenopathy. Cardiopulmonary: Pt denies chest pain, SOB, heart palpitations, dyspnea on exertion. : Pt denies dysuria, burning w/ urination, frequency/urgency. Denies new onset urinary or bowel incontinence. MSK: Pt denies myalgia, loss of strength or function in extremities. Neuro: Pt denies new onset weakness, paresthesias. - Related Data Home Medications Medication Instructions Recorded Confirmed Omeprazole 20 mg PO DAILY 07/10/18 01/27/20 LORazepam [Ativan] 1 mg PO QID PRN 08/13/18 01/27/20 Amitriptyline HCl [Elavil] 150 mg PO HS 10/08/19 01/27/20 Baclofen [Lioresal] 20 mg PO QID PRN 10/08/19 01/27/20 Hydrocodone/Acetaminophen [[place] 1 tab PO Q6H PRN 01/27/20 01/27/20 10-325] Allergies Allergy/AdvReac Type Severity Reaction Status Date / Time No Known Allergies Allergy Verified 02/02/20 12:24 Review of Systems ROS Statement: Those systems with pertinent positive or pertinent negative responses have been documented in the HPI. ROS Other: All systems not noted in ROS Statement are negative. Past Medical History Past Medical History: Asthma, GERD/Reflux Additional Past Medical History / Comment(s): cyclic vomiting syndrome, numbness/tingling bilateral feet when vomiting, low back pain/ruptured discs, occupational asthma, History of Any Multi-Drug Resistant Organisms: None Reported Past Surgical History: Adenoidectomy, Appendectomy, Cholecystectomy, Orthopedic Surgery, Tonsillectomy Additional Past Surgical History / Comment(s): EGD, ORIF bilateral ankles, cy clic vomiting Past Anesthesia/Blood Transfusion Reactions: No Reported Reaction Past Psychological History: Anxiety Smoking Status: Never smoker Past Alcohol Use History: None Reported Past Drug Use History: Marijuana - Past Family History Father Family Medical History: No Reported History Mother Family Medical History: Diabetes Mellitus Additional Family Medical History / Comment(s): severe food allergies General Exam - General Exam Comments Initial Comments: Constitutional: NAD, AOX3, Pt has pleasant affect. HEENT: NC/AT, trachea midline, neck supple, no lymphadenopathy. External ears appear normal, without discharge. Mucous membranes moist. Eyes PERRLA, EOM intact. There is no scleral icterus. No pallor noted. Cardiopulmonary: RRR, no murmurs, rubs or gallops, no JVD noted. Lungs CTAB in anterior and posterior [place]. No peripheral edema. Abdominal exam: Abdomen soft and non-distended. Abdomen mildly tender to palpation epigastric region. No hepatosplenomegaly. No ecchymosis Neuro: CN II-XII grossly intact. No nuchal rigidity. MSK: Full active ROM in upper and lower extremities, 5/5 stregnth. Limitations: no limitations Course Vital Signs 02/02/20 02/02/20 12:21 14:34 Temperature 97.9 F 97.9 F Pulse Rate 76 80 Respiratory 22 22 Rate Blood Pressure 155/55 145/88 O2 Sat by Pulse 100 100 Oximetry Medical Decision Making - Medical Decision Making 34-year-old male patient ED chronic abdominal pain epigastric in nature. Physical exam is a mild tender epigastric region. Laboratory investigations are unchanged from baseline. Mild leukocytosis likely reactive. Nausea and vomiting is well-controlled in ED. Patient's symptoms have improved, no active vomiting. Patient will be discharged with outpatient follow up and reurn precations. Case discussed with Dr. Duckworth. - Lab Data Result diagrams: 02/02/20 12:53 02/02/20 12:53 Lab Results 02/02/20 02/02/20 Range/Units 12:53 12:53 WBC 15.5 H (3.8-10.6) k/uL RBC 5.63 (4.30-5.90) m/uL Hgb 16.8 (13.0-17.5) gm/dL Hct 49.0 (39.0-53.0) % MCV 87.0 (80.0-100.0) fL MCH 29.7 (25.0-35.0) pg MCHC 34.2 (31.0-37.0) g/dL RDW 13.3 (11.5-15.5) % Plt Count 335 (150-450) k/uL MPV 7.6 Neutrophils % 85 % Lymphocytes % 10 % Monocytes % 3 % Eosinophils % 1 % Basophils % 0 % Neutrophils # 13.1 H (1.3-7.7) k/uL Lymphocytes # 1.6 (1.0-4.8) k/uL Monocytes # 0.5 (0-1.0) k/uL Eosinophils # 0.1 (0-0.7) k/uL Basophils # 0.0 (0-0.2) k/uL Sodium 140 (137-145) mmol/L Potassium 4.2 (3.5-5.1) mmol/L Chloride 103 (98-107) mmol/L Carbon Dioxide 26 (22-30) mmol/L Anion Gap 11 mmol/L BUN 15 (9-20) mg/dL Creatinine 0.82 (0.66-1.25) mg/dL Est GFR (CKD-EPI)AfAm >90 (>60 ml/min/1.73 sqM) Est GFR (CKD-EPI)NonAf >90 (>60 ml/min/1.73 sqM) Glucose 108 H (74-99) mg/dL Calcium 10.8 H (8.4-10.2) mg/dL Total Bilirubin 0.6 (0.2-1.3) mg/dL AST 23 (17-59) U/L ALT 43 (4-49) U/L Alkaline Phosphatase 77 (38-126) U/L Total Protein 8.6 H (6.3-8.2) g/dL Albumin 5.3 H (3.5-5.0) g/dL Lipase 65 (23-300) U/L Disposition Clinical Impression: Chronic abdominal pain Disposition: HOME SELF-CARE Condition: Stable Instructions (If sedation given, give patient instructions): Abdominal Pain (ED) Additional Instructions: Follow up with PCP tomorrow. Return to ED with any worsening symptoms. Is patient prescribed a controlled substance at d/c from ED?: No Referrals: Sher Lewis MD [Primary Care Provider] - 1-2 days
[2020-02-02 16:11] VITALS: BP 142/88; RESP 18
== END 2020-02-02 16:14 | disposition home or self-care (01) ==
LOC: EC 12:20
DX: G89.29 Other chronic pain (principal); R10.9 Unspecified abdominal pain; R11.2 Nausea with vomiting, unspecified; K21.9 Gastro-esophageal reflux disease without esophagitis; F41.9 Anxiety disorder, unspecified; Z79.899 Other long term (current) drug therapy; Z90.49 Acquired absence of other specified parts of digestive tract; Z90.89 Acquired absence of other organs
CPT/HCPCS: 80053; 83690; 85025; 99284; 96374; 96375 ×4; 96376; 96361; J2060; J2765; J2405; J1170

== ENCOUNTER 2020-02-12 21:41 | Emergency (ER) | payer OTHER ==
[2020-02-12] MEDS ORDERED: SODIUM CHLORIDE 0.9% 500 ML 500 ML IV STA (22:16)
[2020-02-12] MEDS ORDERED: SODIUM CHLORIDE 0.9% 1,000 ML IV STA (22:16)
[2020-02-12] MEDS ORDERED: HYDROmorphone 1 MG/ML 1 ML SYRINGE IVP STA ×2 (22:17→23:50)
[2020-02-12] MEDS ORDERED: diphenhydrAMINE 50 MG/ML 1 ML VIAL IVP STA (22:17)
[2020-02-12] MEDS ORDERED: METOCLOPRAMIDE 5 MG/ML 2 ML VIAL IVP STA (22:17)
[2020-02-12] MEDS ORDERED: PANTOPRAZOLE 40 MG/10 ML VIAL IVP STA (22:53)
--- NOTE | 2020-02-12 22:53 | ED ---
General Adult HPI - General Chief complaint: Nausea/Vomiting/Diarrhea Stated complaint: ABD pain Time Seen by Provider: 02/12/20 22:09 Source: patient Mode of arrival: wheelchair Limitations: no limitations - History of Present Illness Initial comments: 34 year-old male patient with past medical history significant for cyclic vomiting syndrome and chronic episodic abdominal pain presents to the emergency department for evaluation of abdominal pain and vomiting. Symptoms started earlier today. He states sypmtoms are consistent with his usual pain patterns. Denies fever. Denies constipation or diarrhea. Denies hematemesis, hematochezia, or melena. Denies any recent abdominal surgery or procedures. He did try taking all medications without relief. Denies alcohol or drug use. Patient denies any recent rash, cough, shortness of breath, chest pain, back pain, numbness, tingling, dizziness, weakness, hematuria, dysuria, urinary urgency, urinary frequency, headache, visual changes, or any other complaints. - Related Data Home Medications Medication Instructions Recorded Confirmed Omeprazole 20 mg PO DAILY 07/10/18 02/12/20 LORazepam [Ativan] 1 mg PO QID PRN 08/13/18 02/12/20 Amitriptyline HCl [Elavil] 150 mg PO HS 10/08/19 02/12/20 Baclofen [Lioresal] 20 mg PO QID PRN 10/08/19 02/12/20 Hydrocodone/Acetaminophen [[place] 1 tab PO Q6H PRN 01/27/20 02/12/20 10-325] Allergies Allergy/AdvReac Type Severity Reaction Status Date / Time No Known Allergies Allergy Verified 02/12/20 22:32 Review of Systems ROS Statement: Those systems with pertinent positive or pertinent negative responses have been documented in the HPI. ROS Other: All systems not noted in ROS Statement are negative. Past Medical History Past Medical History: Asthma, GERD/Reflux Additional Past Medical History / Comment(s): cyclic vomiting syndrome, num bness/tingling bilateral feet when vomiting, low back pain/ruptured discs, occupational asthma, History of Any Multi-Drug Resistant Organisms: None Reported Past Surgical History: Adenoidectomy, Appendectomy, Cholecystectomy, Orthopedic Surgery, Tonsillectomy Additional Past Surgical History / Comment(s): EGD, ORIF bilateral ankles, cyclic vomiting Past Anesthesia/Blood Transfusion Reactions: No Reported Reaction Past Psychological History: Anxiety Smoking Status: Never smoker Past Alcohol Use History: None Reported Past Drug Use History: Marijuana - Past Family History Father Family Medical History: No Reported History Mother Family Medical History: Diabetes Mellitus Additional Family Medical History / Comment(s): severe food allergies General Exam Limitations: no limitations General appearance: alert, in no apparent distress, other (This is a well- developed, well-nourished adult male patient in mild distress related to pain. Vital signs upon presentation are temperature 98.2F, pulse 85, respirations 20, blood pressure 158/84, pulse ox 100% on room air.) Eye exam: Present: normal appearance, PERRL, EOMI. Absent: scleral icterus, conjunctival injection, periorbital swelling ENT exam: Present: normal exam, normal oropharynx, mucous membranes moist Respiratory exam: Present: normal lung sounds bilaterally. Absent: respiratory distress, wheezes, rales, rhonchi, stridor Cardiovascular Exam: Present: regular rate, normal rhythm, normal heart sounds. Absent: systolic murmur, diastolic murmur, rubs, gallop, clicks GI/Abdominal exam: Present: soft, tenderness (generalized), normal bowel sounds. Absent: distended, guarding, rebound, rigid Neurological exam: Present: alert, oriented X3, CN II-XII intact Psychiatric exam: Present: normal affect, normal mood Skin exam: Present: warm, dry, intact, normal color. Absent: rash Course Vital Signs 02/12/20 02/12/20 02/13/20 21:51 23:02 00:09 Temperature 98.0 F 98.4 F Pulse Rate 85 91 94 Respiratory 20 18 16 Rate Blood Pressure 158/84 148/95 112/90 O2 Sat by Pulse 100 99 97 Oximetry Medical Decision Making - Medical Decision Making 34-year-old male patient presents to the emergency department today for evaluation of increased abdominal pain and vomiting. Patient does have history of chronic abdominal pain and cyclic vomiting syndrome. Symptoms are similar to his usual pain and nausea patterns. Labs reviewed and did reveal elevated white blood cell, likely reactive from vomiting. He is afebrile normal vital signs. Is given pain medication, IV fluids, nausea medication here in the department. Upon reevaluation patient is resting comfortable. States that symptoms are much improved. He will be discharged with his primary care physician for recheck in 1-2 days. Return parameters were discussed in detail. He verbalizes understanding and agrees with this plan. - Lab Data Result diagrams: 02/12/20 22:35 02/12/20 22:44 Lab Results 02/12/20 02/12/20 02/12/20 Range/Units 22:35 22:44 23:51 WBC 15.3 H (3.8-10.6) k/uL RBC 5.48 (4.30-5.90) m/uL Hgb 15.8 (13.0-17.5) gm/dL Hct 47.8 (39.0-53.0) % MCV 87.2 (80.0-100.0) fL MCH 28.8 (25.0-35.0) pg MCHC 33.1 (31.0-37.0) g/dL RDW 13.2 (11.5-15.5) % Plt Count 363 (150-450) k/uL MPV 7.0 Neutrophils % 88 % Lymphocytes % 8 % Monocytes % 3 % Eosinophils % 0 % Basophils % 0 % Neutrophils # 13.5 H (1.3-7.7) k/uL Lymphocytes # 1.3 (1.0-4.8) k/uL Monocytes # 0.4 (0-1.0) k/uL Eosinophils # 0.0 (0-0.7) k/uL Basophils # 0.0 (0-0.2) k/uL Sodium 140 (137-145) mmol/L Potassium 4.6 (3.5-5.1) mmol/L Chloride 104 (98-107) mmol/L Carbon Dioxide 25 (22-30) mmol/L Anion Gap 11 mmol/L BUN 18 (9-20) mg/dL Creatinine 0.78 (0.66-1.25) mg/dL Est GFR (CKD-EPI)AfAm >90 (>60 ml/min/1.73 sqM) Est GFR (CKD-EPI)NonAf >90 (>60 ml/min/1.73 sqM) Glucose 121 H (74-99) mg/dL Calcium 11.0 H (8.4-10.2) mg/dL Total Bilirubin 1.2 (0.2-1.3) mg/dL AST 33 (17-59) U/L ALT 56 H (4-49) U/L Alkaline Phosphatase 82 (38-126) U/L Total Protein 8.9 H (6.3-8.2) g/dL Albumin 5.4 H (3.5-5.0) g/dL Lipase 43 (23-300) U/L Urine Color Colorless Urine Appearance Clear (Clear) Urine pH 5.5 (5.0-8.0) Ur Specific [place] 1.003 (1.001-1.035) Urine Protein Negative (Negative) Urine Glucose (UA) Negative (Negative) Urine Ketones 1+ H (Negative) Urine Blood Negative (Negative) Urine Nitrite Negative (Negative) Urine Bilirubin Negative (Negative) Urine Urobilinogen <2.0 (<2.0) mg/dL Ur Leukocyte Esterase Negative (Negative) Disposition Clinical Impression: Abdominal pain, Vomiting Disposition: HOME SELF-CARE Condition: Good Instructions (If sedation given, give patient instructions): Acute Nausea and Vomiting (ED), Abdominal Pain (ED) Additional Instructions: Follow-up with the primary care physician for recheck in 1-2 days. Return to the emergency department for any new, worsening, or concerning symptoms. Is patient prescribed a controlled substance at d/c from ED?: No Referrals: Sher Lewis MD [Primary Care Provider] - 1-2 days Time of Disposition: 00:24
[2020-02-12 22:57] LABS: Basophils % (A) 0 %; Eosinophils % (A) 0 %; HCT 47.8 % (39.0-53.0); HGB 15.8 gm/dL (13.0-17.5); Lymphocytes # (A) 1.3 k/uL (1.0-4.8); Lymphocytes % (A) 8 %; MCH 28.8 pg (25.0-35.0); MCHC 33.1 g/dL (31.0-37.0); MCV 87.2 fL (80.0-100.0); Monocytes # (A) 0.4 k/uL (0-1.0); Monocytes % (A) 3 %; Neutrophils # (A) 13.5 k/uL (1.3-7.7); Neutrophils % (A) 88 %; Platelet Count 363 k/uL (150-450); RBC 5.48 m/uL (4.30-5.90); RDW 13.2 % (11.5-15.5); WBC 15.3 k/uL (3.8-10.6)
[2020-02-12 23:18] LABS: ALT 56 U/L (4-49); AST 33 U/L (17-59); African American GFR (CKD) >90 (>60 ml/min/1.73 sqM); Albumin 5.4 g/dL (3.5-5.0); Alkaline Phosphatase 82 U/L (38-126); Anion Gap 11 mmol/L; Blood Urea Nitrogen 18 mg/dL (9-20); Carbon Dioxide 25 mmol/L (22-30); Chloride 104 mmol/L (98-107); Glucose 121 mg/dL (74-99); Lipase 43 U/L (23-300); Non-African American GFR(CKD) >90 (>60 ml/min/1.73 sqM); Potassium 4.6 mmol/L (3.5-5.1); Sodium 140 mmol/L (137-145); Total Bilirubin 1.2 mg/dL (0.2-1.3); Total Protein 8.9 g/dL (6.3-8.2)
[2020-02-12 23:58] LABS: Appearance,Urine Clear (Clear); Bilirubin,Urine Negative (Negative); Blood,Urine Negative (Negative); Color,Urine Colorless; Glucose,Urine (UA) Negative (Negative); Ketones,Urine 1+ (Negative); Leukocyte Esterase,Urine Negative (Negative); Nitrite,Urine Negative (Negative); PH, Urine 5.5 (5.0-8.0); Protein,Urine Negative (Negative); Specific Gravity,Urine 1.003 (1.001-1.035); Urobilinogen,Urine <2.0 mg/dL (<2.0)
[2020-02-13] MEDS ORDERED: LORazepam 2 MG/ML INJ IV STA
[2020-02-13 01:08] VITALS: BP 121/87; PULSE 82; RESP 18; TEMP 98.1
== END 2020-02-13 01:00 | disposition home or self-care (01) ==
LOC: EC 21:41
DX: R10.9 Unspecified abdominal pain (principal); R11.10 Vomiting, unspecified; F41.9 Anxiety disorder, unspecified; K21.9 Gastro-esophageal reflux disease without esophagitis; Z79.899 Other long term (current) drug therapy; Z90.49 Acquired absence of other specified parts of digestive tract; Z90.89 Acquired absence of other organs
CPT/HCPCS: 36415; 80053; 83690; 85025; 81003; 99284; 96374; 96375 ×4; 96376; 96361; J2060; J1200; J2765; J1170 ×2; C9113

== ENCOUNTER 2020-02-13 09:01 | Emergency (ER) | payer OTHER ==
[2020-02-13 09:10] VITALS: RESP 18; TEMP 98
[2020-02-13] MEDS ORDERED: SODIUM CHLORIDE 0.9% 1,000 ML IV STA (09:55)
[2020-02-13] MEDS ORDERED: ONDANSETRON 4 MG/2 ML VIAL IVP STA (09:55)
[2020-02-13] MEDS ORDERED: KETOROLAC 15 MG/ML 1 ML VIAL IVP STA (09:59)
--- NOTE | 2020-02-13 09:59 | ED ---
General Adult HPI - General Chief complaint: Nausea/Vomiting/Diarrhea Stated complaint: vomiting/abd pain Time Seen by Provider: 02/13/20 09:10 Source: patient, RN notes reviewed, old records reviewed Mode of arrival: ambulatory Limitations: no limitations - History of Present Illness Initial comments: This is a 34-year-old male who has a past medical history significant for cyclic vomiting syndrome. Patient states he continues to smoke marijuana however. Patient states the symptoms started yesterday had vomiting and right upper quadrant abdominal pain. Patient states this is typical of his pain. Patient denies any diarrhea. Patient states he vomited just prior to arrival. Patient denies any chest pain difficult breathing shortness breath. Patient denies any headache patient denies numbness weakness. Patient denies any dysuria hematuria urinary frequency. - Related Data Home Medications Medication Instructions Recorded Confirmed Omeprazole 20 mg PO DAILY 07/10/18 02/13/20 LORazepam [Ativan] 1 mg PO QID PRN 08/13/18 02/13/20 Amitriptyline HCl [Elavil] 150 mg PO HS 10/08/19 02/13/20 Baclofen [Lioresal] 20 mg PO QID PRN 10/08/19 02/13/20 Hydrocodone/Acetaminophen [[place] 1 tab PO Q6H PRN 01/27/20 02/13/20 10-325] Allergies Allergy/AdvReac Type Severity Reaction Status Date / Time No Known Allergies Allergy Verified 02/13/20 10:40 Review of Systems ROS Statement: Those systems with pertinent positive or pertinent negative responses have been documented in the HPI. ROS Other: All systems not noted in ROS Statement are negative. Past Medical History Past Medical History: Asthma, GERD/Reflux Additional Past Medical History / Comment(s): cyclic vomiting syndrome, numbness/tingling bilateral feet when vomiting, low back pain/ruptured discs, occupational asthma, History of Any Multi-Drug Resistant Organisms: None Reported Past Surgical History: Adenoidectomy, Appendectomy, Cholecystectomy, Orthopedic Surgery, Tonsillectomy Additional Past Surgical History / Comment(s): EGD, ORIF bilateral ankles, cyclic vomiting Past Anesthesia/Blood Transfusion Reactions: No Reported Reaction Past Psychological History: Anxiety Smoking Status: Never smoker Past Alcohol Use History: None Reported Past Drug Use History: Marijuana - Past Family History Father Family Medical History: No Reported History Mother Family Medical History: Diabetes Mellitus Additional Family Medical History / Comment(s): severe food allergies General Exam - General Exam Comments Initial Comments: GENERAL: Patient is well-developed and well-nourished. Patient is nontoxic and well- hydrated and is in mild distress. ENT: Neck is soft and supple. No significant lymphadenopathy is noted. Oropharynx is clear. Moist mucous membranes. Neck has full range of motion without eliciting any pain. EYES: The sclera were anicteric and conjunctiva were pink and moist. Extraocular movements were intact and pupils were equal round and reactive to light. Ey elids were unremarkable. PULMONARY: Unlabored respirations. Good breath sounds bilaterally. No audible rales rhonchi or wheezing was noted. CARDIOVASCULAR: There is a regular rate and rhythm without any murmurs gallops or rubs. ABDOMEN: Patient has mild right upper quadrant abdominal tenderness SKIN: Skin is clear with no lesions or rashes and otherwise unremarkable. NEUROLOGIC: Patient is alert and oriented x3. Cranial nerves II through XII are grossly intact. Motor and sensory are also intact. Normal speech, volume and content. Symmetrical smile. MUSCULOSKELETAL: Normal extremities with adequate strength and full range of motion. LYMPHATICS: No significant lymphadenopathy is noted PSYCHIATRIC: Normal psychiatric evaluation. Limitations: no limitations Course Vital Signs 02/13/20 02/13/20 02/13/20 09:08 10:10 11:10 Temperature 98 F Pulse Rate 95 116 H Respiratory 18 18 18 Rate Blood Pressure 147/90 109/71 O2 Sat by Pulse 100 97 Oximetry Medical Decision Making - Medical Decision Making KUB shows no acute abnormality. Patient was requesting to leave because he was no longer having any pain and wasn't vomiting - Lab Data Result diagrams: 02/13/20 10:12 02/13/20 10:12 Lab Results 02/13/20 02/13/20 02/13/20 Range/Units 10:12 10:12 10:12 WBC 11.6 H (3.8-10.6) k/uL RBC 5.20 (4.30-5.90) m/uL Hgb 15.1 (13.0-17.5) gm/dL Hct 45.7 (39.0-53.0) % MCV 87.9 (80.0-100.0) fL MCH 29.0 (25.0-35.0) pg MCHC 33.0 (31.0-37.0) g/dL RDW 13.3 (11.5-15.5) % Plt Count 346 (150-450) k/uL MPV 6.9 Neutrophils % 79 % Lymphocytes % 14 % Monocytes % 5 % Eosinophils % 1 % Basophils % 0 % Neutrophils # 9.1 H (1.3-7.7) k/uL Lymphocytes # 1.6 (1.0-4.8) k/uL Monocytes # 0.5 (0-1.0) k/uL Eosinophils # 0.2 (0-0.7) k/uL Basophils # 0.0 (0-0.2) k/uL Sodium 139 (137-145) mmol/L Potassium 3.7 (3.5-5.1) mmol/L Chloride 104 (98-107) mmol/L Carbon Dioxide 26 (22-30) mmol/L Anion Gap 9 mmol/L BUN 15 (9-20) mg/dL Creatinine 0.67 (0.66-1.25) mg/dL Est GFR (CKD-EPI)AfAm >90 (>60 ml/min/1.73 sqM) Est GFR (CKD-EPI)NonAf >90 (>60 ml/min/1.73 sqM) Glucose 100 H (74-99) mg/dL Plasma Lactic Acid [place] 1.2 (0.7-2.0) mmol/L Calcium 9.7 (8.4-10.2) mg/dL Total Bilirubin 1.6 H (0.2-1.3) mg/dL AST 26 (17-59) U/L ALT 44 (4-49) U/L Alkaline Phosphatase 67 (38-126) U/L Total Protein 7.6 (6.3-8.2) g/dL Albumin 4.7 (3.5-5.0) g/dL Amylase 41 (30-110) U/L Lipase 43 (23-300) U/L Urine Color Urine Appearance (Clear) Urine pH (5.0-8.0) Ur Specific [place] (1.001-1.035) Urine Protein (Negative) Urine Glucose (UA) (Negative) Urine Ketones (Negative) Urine Blood (Negative) Urine Nitrite (Negative) Urine Bilirubin (Negative) Urine Urobilinogen (<2.0) mg/dL Ur Leukocyte Esterase (Negative) 02/13/20 Range/Units 11:10 WBC (3.8-10.6) k/uL RBC (4.30-5.90) m/uL Hgb (13.0-17.5) gm/dL Hct (39.0-53.0) % MCV (80.0-100.0) fL MCH (25.0-35.0) pg MCHC (31.0-37.0) g/dL RDW (11.5-15.5) % Plt Count (150-450) k/uL MPV Neutrophils % % Lymphocytes % % Monocytes % % Eosinophils % % Basophils % % Neutrophils # (1.3-7.7) k/uL Lymphocytes # (1.0-4.8) k/uL Monocytes # (0-1.0) k/uL Eosinophils # (0-0.7) k/uL Basophils # (0-0.2) k/uL Sodium (137-145) mmol/L Potassium (3.5-5.1) mmol/L Chloride (98-107) mmol/L Carbon Dioxide (22-30) mmol/L Anion Gap mmol/L BUN (9-20) mg/dL Creatinine (0.66-1.25) mg/dL Est GFR (CKD-EPI)AfAm (>60 ml/min/1.73 sqM) Est GFR (CKD-EPI)NonAf (>60 ml/min/1.73 sqM) Glucose (74-99) mg/dL Plasma Lactic Acid [place] (0.7-2.0) mmol/L Calcium (8.4-10.2) mg/dL Total Bilirubin (0.2-1.3) mg/dL AST (17-59) U/L ALT (4-49) U/L Alkaline Phosphatase (38-126) U/L Total Protein (6.3-8.2) g/dL Albumin (3.5-5.0) g/dL Amylase (30-110) U/L Lipase (23-300) U/L Urine Color Colorless Urine Appearance Clear (Clear) Urine pH 7.0 (5.0-8.0) Ur Specific [place] 1.004 (1.001-1.035) Urine Protein Negative (Negative) Urine Glucose (UA) Negative (Negative) Urine Ketones Negative (Negative) Urine Blood Negative (Negative) Urine Nitrite Negative (Negative) Urine Bilirubin Negative (Negative) Urine Urobilinogen <2.0 (<2.0) mg/dL Ur Leukocyte Esterase Negative (Negative) Disposition Clinical Impression: Abdominal pain, Vomiting Disposition: ADMITTED IP TO THIS [facility] Instructions (If sedation given, give patient instructions): Abdominal Pain (ED) Is patient prescribed a controlled substance at d/c from ED?: No Referrals: Sher Lewis MD [Primary Care Provider] - 1-2 days Time of Disposition: 11:37
[2020-02-13] MEDS ORDERED: diphenhydrAMINE 50 MG/ML 1 ML VIAL IVP STA (10:03)
[2020-02-13] MEDS ORDERED: PANTOPRAZOLE 40 MG/10 ML VIAL IVP STA (10:03)
[2020-02-13 10:34] LABS: Basophils % (A) 0 %; Eosinophils # (A) 0.2 k/uL (0-0.7); Eosinophils % (A) 1 %; HCT 45.7 % (39.0-53.0); HGB 15.1 gm/dL (13.0-17.5); Lymphocytes # (A) 1.6 k/uL (1.0-4.8); Lymphocytes % (A) 14 %; MCV 87.9 fL (80.0-100.0); Mean Platelet Volume 6.9; Monocytes # (A) 0.5 k/uL (0-1.0); Monocytes % (A) 5 %; Neutrophils # (A) 9.1 k/uL (1.3-7.7); Neutrophils % (A) 79 %; Platelet Count 346 k/uL (150-450); RDW 13.3 % (11.5-15.5); WBC 11.6 k/uL (3.8-10.6)
--- NOTE | 2020-02-13 10:40 | XR ---
EXAMINATION TYPE: XR KUB DATE OF EXAM: 02/13/2020 COMPARISON: 06/03/2019 INDICATION: Abdomen pain nausea vomiting TECHNIQUE: Single view abdomen upright view FINDINGS: There is a normal bowel gas pattern. Psoas margins are normal. No organomegaly is present. IMPRESSION: 1. Unremarkable Abdomen
[2020-02-13 11:11] LABS: Chloride 104 mmol/L (98-107)
[2020-02-13 11:14] LABS: ALT 44 U/L (4-49); AST 26 U/L (17-59); African American GFR (CKD) >90 (>60 ml/min/1.73 sqM); Albumin 4.7 g/dL (3.5-5.0); Alkaline Phosphatase 67 U/L (38-126); Amylase 41 U/L (30-110); Anion Gap 9 mmol/L; Blood Urea Nitrogen 15 mg/dL (9-20); Calcium 9.7 mg/dL (8.4-10.2); Carbon Dioxide 26 mmol/L (22-30); Glucose 100 mg/dL (74-99); Lipase 43 U/L (23-300); Non-African American GFR(CKD) >90 (>60 ml/min/1.73 sqM); Potassium 3.7 mmol/L (3.5-5.1); Sodium 139 mmol/L (137-145); Total Bilirubin 1.6 mg/dL (0.2-1.3); Total Protein 7.6 g/dL (6.3-8.2)
[2020-02-13 11:24] LABS: Appearance,Urine Clear (Clear); Bilirubin,Urine Negative (Negative); Blood,Urine Negative (Negative); Color,Urine Colorless; Glucose,Urine (UA) Negative (Negative); Ketones,Urine Negative (Negative); Leukocyte Esterase,Urine Negative (Negative); Nitrite,Urine Negative (Negative); Protein,Urine Negative (Negative); Specific Gravity,Urine 1.004 (1.001-1.035); Urobilinogen,Urine <2.0 mg/dL (<2.0)
[2020-02-13 11:47] VITALS: BP 108/67; PULSE 88
== END 2020-02-13 11:46 | disposition other institution (70) ==
LOC: EC 09:01
DX: R10.11 Right upper quadrant pain (principal); K21.9 Gastro-esophageal reflux disease without esophagitis; R10.811 Right upper quadrant abdominal tenderness; R11.15 Cyclical vomiting syndrome unrelated to migraine; M54.5 Low back pain; F12.90 Cannabis use, unspecified, uncomplicated; F41.9 Anxiety disorder, unspecified; Z79.899 Other long term (current) drug therapy; Z90.49 Acquired absence of other specified parts of digestive tract; Z90.89 Acquired absence of other organs
CPT/HCPCS: 36415; 80053; 82150; 83605; 83690; 85025; 81003; 74018; 99285; 96374; 96375 ×3; 96361; J1200; J2405; J1885; C9113

== ENCOUNTER 2020-02-15 21:05 | Emergency (ER) | payer OTHER ==
[2020-02-15] MEDS ORDERED: SODIUM CHLORIDE 0.9% 1,000 ML IV STA (21:19)
[2020-02-15] MEDS ORDERED: ONDANSETRON 4 MG/2 ML VIAL IVP STA (21:19)
[2020-02-15] MEDS ORDERED: PANTOPRAZOLE 40 MG/10 ML VIAL IVP STA (21:19)
--- NOTE | 2020-02-15 21:20 | ED ---
General Adult HPI - General Stated complaint: Abdominal Pain, vomiting Time Seen by Provider: 02/15/20 21:19 - History of Present Illness Initial comments: 34-year-old male with history of cyclic vomiting syndrome presenting to emergency Department with a chief complaint abdominal pain nausea vomiting. Patient reports the symptoms began about 2 days ago. He states these are his typical symptoms. States he has epigastric abdominal pain with multiple episodes of nonbilious and nonbloody vomiting. Patient reports he was recently here for the same symptoms. Denies any night sweats fevers or chills. Denies hematuria, hematochezia or melena. Denies chest pain shortness of breath. - Related Data Home Medications Medication Instructions Recorded Confirmed Omeprazole 20 mg PO DAILY 07/10/18 02/15/20 LORazepam [Ativan] 1 mg PO QID PRN 08/13/18 02/15/20 Amitriptyline HCl [Elavil] 150 mg PO HS 10/08/19 02/15/20 Baclofen [Lioresal] 20 mg PO QID PRN 10/08/19 02/15/20 Hydrocodone/Acetaminophen [[place] 1 tab PO Q6H PRN 01/27/20 02/15/20 10-325] Allergies Allergy/AdvReac Type Severity Reaction Status Date / Time No Known Allergies Allergy Verified 02/15/20 21:49 Review of Systems ROS Statement: Those systems with pertinent positive or pertinent negative responses have been documented in the HPI. ROS Other: All systems not noted in ROS Statement are negative. Past Medical History Past Medical History: Asthma, GERD/Reflux Additional Past Medical History / Comment(s): cyclic vomiting syndrome, numbness/tingling bilateral feet when vomiting, low back pain/ruptured discs, occupational asthma, History of Any Multi-Drug Resistant Organisms: None Reported Past Surgical History: Adenoidectomy, Appendectomy, Cholecystectomy, Orthopedic Surgery, Tonsillectomy Additional Past Surgical History / Comment(s): EGD, ORIF bilateral ankles, cyclic vomiting Past Anesthesia/Blood Transfusion Reactions: No Reported Reaction Past Psychological History: Anxiety Smoking Status: Never smoker Past Alcohol Use History: None Reported Past Drug Use History: Marijuana - Past Family History Father Family Medical History: No Reported History Mother Family Medical History: Diabetes Mellitus Additional Family Medical History / Comment(s): severe food allergies General Exam General appearance: alert, in no apparent distress Head exam: Present: atraumatic, normocephalic, normal inspection Eye exam: Present: normal appearance, PERRL, EOMI Pupils: Present: normal accommodation ENT exam: Present: normal exam, normal oropharynx, mucous membranes moist, TM's normal bilaterally, normal external ear exam Neck exam: Present: normal inspection, full ROM. Absent: tenderness Respiratory exam: Present: normal lung sounds bilaterally. Absent: respiratory distress, wheezes, rales Cardiovascular Exam: Present: regular rate, normal rhythm, normal heart sounds. Absent: systolic murmur, diastolic murmur GI/Abdominal exam: Present: soft, tenderness (Epigastric tenderness). Absent: distended Extremities exam: Present: normal inspection, full ROM, normal capillary refill. Absent: tenderness, pedal edema, joint swelling Back exam: Present: normal inspection, full ROM. Absent: tenderness Neurological exam: Present: alert, oriented X3 Psychiatric exam: Present: normal affect, normal mood Skin exam: Present: warm, dry, intact, normal color Course Vital Signs 02/15/20 02/15/20 21:17 22:33 Temperature 98.1 F Pulse Rate 91 70 Respiratory 24 20 Rate Blood Pressure 117/88 179/98 O2 Sat by Pulse 100 100 Oximetry Medical Decision Making - Medical Decision Making 34-year-old male with history of cyclic vomiting syndrome presenting to emergenc y Department with chief complaint abdominal pain nausea vomiting. Physical examination reveals epigastric abdominal tenderness which is very typical whenever he has exacerbation of symptoms. Patient was given antiemetics, analgesia and IV fluids. Reevaluation patient reports improved his symptoms. CBC reveals mild leukocytosis which I suspect is secondary to the vomiting. CMP unremarkable. Patient advised to follow-up with primary care. Case discussed physician. - Lab Data Result diagrams: 02/15/20 21:24 02/15/20 21:24 Lab Results 02/15/20 02/15/20 Range/Units 21:24 21:24 WBC 10.8 H (3.8-10.6) k/uL RBC 5.25 (4.30-5.90) m/uL Hgb 15.8 (13.0-17.5) gm/dL Hct 44.9 (39.0-53.0) % MCV 85.5 (80.0-100.0) fL MCH 30.0 (25.0-35.0) pg MCHC 35.2 (31.0-37.0) g/dL RDW 12.6 (11.5-15.5) % Plt Count 401 (150-450) k/uL MPV 6.9 Neutrophils % 56 % Lymphocytes % 32 % Monocytes % 5 % Eosinophils % 3 % Basophils % 2 % Neutrophils # 6.1 (1.3-7.7) k/uL Lymphocytes # 3.5 (1.0-4.8) k/uL Monocytes # 0.6 (0-1.0) k/uL Eosinophils # 0.3 (0-0.7) k/uL Basophils # 0.2 (0-0.2) k/uL Sodium 140 (137-145) mmol/L Potassium 4.9 (3.5-5.1) mmol/L Chloride 102 (98-107) mmol/L Carbon Dioxide 27 (22-30) mmol/L Anion Gap 11 mmol/L BUN 16 (9-20) mg/dL Creatinine 0.83 (0.66-1.25) mg/dL Est GFR (CKD-EPI)AfAm >90 (>60 ml/min/1.73 sqM) Est GFR (CKD-EPI)NonAf >90 (>60 ml/min/1.73 sqM) Glucose 102 H (74-99) mg/dL Calcium 10.3 H (8.4-10.2) mg/dL Total Bilirubin 1.4 H (0.2-1.3) mg/dL AST 34 (17-59) U/L ALT 41 (4-49) U/L Alkaline Phosphatase 59 (38-126) U/L Total Protein 8.7 H (6.3-8.2) g/dL Albumin 5.3 H (3.5-5.0) g/dL Lipase 187 (23-300) U/L Disposition Clinical Impression: Nausea and vomiting, Abdominal pain Disposition: HOME SELF-CARE Condition: Stable Instructions (If sedation given, give patient instructions): Abdominal Pain (ED) Is patient prescribed a controlled substance at d/c from ED?: No Referrals: Sher Lewis MD [Primary Care Provider] - 1-2 days Time of Disposition: 22:57
[2020-02-15 21:25] VITALS: TEMP 98.1
[2020-02-15 21:31] LABS: Basophils # (A) 0.2 k/uL (0-0.2); Basophils % (A) 2 %; Eosinophils # (A) 0.3 k/uL (0-0.7); Eosinophils % (A) 3 %; HCT 44.9 % (39.0-53.0); HGB 15.8 gm/dL (13.0-17.5); Lymphocytes # (A) 3.5 k/uL (1.0-4.8); Lymphocytes % (A) 32 %; MCHC 35.2 g/dL (31.0-37.0); MCV 85.5 fL (80.0-100.0); Mean Platelet Volume 6.9; Monocytes # (A) 0.6 k/uL (0-1.0); Monocytes % (A) 5 %; Neutrophils # (A) 6.1 k/uL (1.3-7.7); Neutrophils % (A) 56 %; Platelet Count 401 k/uL (150-450); RBC 5.25 m/uL (4.30-5.90); RDW 12.6 % (11.5-15.5); WBC 10.8 k/uL (3.8-10.6)
[2020-02-15] MEDS ORDERED: HYDROmorphone 1 MG/ML 1 ML SYRINGE IVP STA ×2 (21:37→22:24)
[2020-02-15] MEDS ORDERED: LORazepam 2 MG/ML INJ IV STA ×2 (21:39→22:12)
[2020-02-15 21:41] LABS: ALT 41 U/L (4-49); AST 34 U/L (17-59); African American GFR (CKD) >90 (>60 ml/min/1.73 sqM); Albumin 5.3 g/dL (3.5-5.0); Alkaline Phosphatase 59 U/L (38-126); Anion Gap 11 mmol/L; Blood Urea Nitrogen 16 mg/dL (9-20); Calcium 10.3 mg/dL (8.4-10.2); Carbon Dioxide 27 mmol/L (22-30); Chloride 102 mmol/L (98-107); Glucose 102 mg/dL (74-99); Lipase 187 U/L (23-300); Non-African American GFR(CKD) >90 (>60 ml/min/1.73 sqM); Sodium 140 mmol/L (137-145); Total Bilirubin 1.4 mg/dL (0.2-1.3); Total Protein 8.7 g/dL (6.3-8.2)
[2020-02-15 21:56] LABS: Potassium 4.9 mmol/L (3.5-5.1)
[2020-02-15 22:34] VITALS: BP 179/98; PULSE 70; RESP 20
== END 2020-02-15 23:18 | disposition home or self-care (01) ==
LOC: EC 21:05
DX: R10.13 Epigastric pain (principal); R11.2 Nausea with vomiting, unspecified; D72.829 Elevated white blood cell count, unspecified; F41.9 Anxiety disorder, unspecified; K21.9 Gastro-esophageal reflux disease without esophagitis; Z79.899 Other long term (current) drug therapy; Z90.49 Acquired absence of other specified parts of digestive tract; Z90.89 Acquired absence of other organs
CPT/HCPCS: 80053; 83690; 85025; 99284; 96374; 96375 ×3; 96376 ×2; 96361 ×2; J2060; J2405; J1170; C9113

== ENCOUNTER 2020-02-16 01:53 | Emergency (ER) | payer OTHER ==
[2020-02-16 01:59] VITALS: BP 147/70; PULSE 74; RESP 19; TEMP 98.5
--- NOTE | 2020-02-16 02:15 | ED ---
Recheck HPI - General Chief Complaint: Abdominal Pain Stated Complaint: Abdominal Pain Time Seen by Provider: 02/16/20 01:59 Source: patient, RN notes reviewed, old records reviewed Mode of arrival: ambulatory Limitations: no limitations - History of Present Illness Initial Comments: This is a 34-year-old male to the ER for evaluation patient presents today for evaluation recurrent evaluation of cyclic nausea vomiting and pain. On initial questioning patient's refusing admission like to feel better for discharge. Patient has no other change in symptoms. Patient states he was not feeling completely better by the time he was at home earlier today MD Complaint: other (Abnormal abdominal pain cyclic vomiting) -: hour(s) Returns Today for: Called Because of Abnormal Lab/Test, persistent/worsening pain related to initial visit Symptoms Since Prior Visit: worsening pain (Nausea and vomiting) Associated Symptoms: abdominal pain Treatments Prior to Arrival: Given Pain Meds on - Related Data Home Medications Medication Instructions Recorded Confirmed Omeprazole 20 mg PO DAILY 07/10/18 02/15/20 LORazepam [Ativan] 1 mg PO QID PRN 08/13/18 02/15/20 Amitriptyline HCl [Elavil] 150 mg PO HS 10/08/19 02/15/20 Baclofen [Lioresal] 20 mg PO QID PRN 10/08/19 02/15/20 Hydrocodone/Acetaminophen [[place] 1 tab PO Q6H PRN 01/27/20 02/15/20 10-325] Allergies Allergy/AdvReac Type Severity Reaction Status Date / Time No Known Allergies Allergy Verified 02/16/20 01:59 Review of Systems ROS Statement: Those systems with pertinent positive or pertinent negative responses have been documented in the HPI. ROS Other: All systems not noted in ROS Statement are negative. Past Medical History Past Medical History: Asthma, GERD/Reflux Additional Past Medical History / Comment(s): cyclic vomiting syndrome, numbness/tingling bilateral feet when vomiting, low back pain/ruptured discs, occupational asthma, History of Any Multi-Drug Resistant Organisms: None Reported Past Surgical History: Adenoidectomy, Appendectomy, Cholecystectomy, Orthopedic Surgery, Tonsillectomy Additional Past Surgical History / Comment(s): EGD, ORIF bilateral ankles, cyclic vomiting Past Anesthesia/Blood Transfusion Reactions: No Reported Reaction Past Psychological History: Anxiety Smoking Status: Never smoker Past Alcohol Use History: None Reported Past Drug Use History: Marijuana - Past Family History Father Family Medical History: No Reported History Mother Family Medical History: Diabetes Mellitus Additional Family Medical History / Comment(s): severe food allergies General Exam General appearance: anxious Head exam: Present: atraumatic, normocephalic, normal inspection Eye exam: Present: normal appearance, PERRL, EOMI. Absent: scleral icterus, conjunctival injection, periorbital swelling ENT exam: Present: normal exam, mucous membranes moist Neck exam: Present: normal inspection. Absent: tenderness, meningismus, lymphadenopathy Respiratory exam: Present: normal lung sounds bilaterally. Absent: respiratory distress, wheezes, rales, rhonchi, stridor Cardiovascular Exam: Present: regular rate, normal rhythm, normal heart sounds. Absent: systolic murmur, diastolic murmur, rubs, gallop, clicks GI/Abdominal exam: Present: soft, normal bowel sounds. Absent: distended, tenderness, guarding, rebound, rigid Extremities exam: Present: normal inspection, full ROM, normal capillary refill. Absent: tenderness, pedal edema, joint swelling, calf tenderness Back exam: Present: normal inspection Neurological exam: Present: alert, oriented X3, CN II-XII intact Psychiatric exam: Present: normal affect, normal mood Skin exam: Present: warm, dry, intact, normal color. Absent: rash Course Vital Signs 02/16/20 01:57 Temperature 98.5 F Pulse Rate 74 Respiratory 19 Rate Blood Pressure 147/70 O2 Sat by Pulse 99 Oximetry - Reevaluation(s) Reevaluation #1: 02/16/20 03:58 Medical record is reviewed Reevaluation #2: 02/16/20 03:58 Patient symptoms are resolved, patient prefers discharge Medical Decision Making - Medical Decision Making 34 male with symptoms of abdominal pain cyclic nausea vomiting. Those are resolved now. Patient will be discharged home Disposition Clinical Impression: Cyclical vomiting, intractable, Vomiting, Drug-induced nausea and vomiting, Abdominal pain Disposition: HOME SELF-CARE Condition: Fair Instructions (If sedation given, give patient instructions): Abdominal Pain (ED) Is patient prescribed a controlled substance at d/c from ED?: No Referrals: Sher Lewis MD [Primary Care Provider] - 1-2 days
[2020-02-16] MEDS ORDERED: ONDANSETRON ODT 8 MG TAB.RAPDIS PO STA (02:30)
[2020-02-16] MEDS ORDERED: PROCHLORPERAZINE SUPPOSITORY 25 MG SUPP RECTAL STA (02:30)
[2020-02-16] MEDS ORDERED: HYDROmorphone 1 MG/ML 1 ML SYRINGE IM STA (02:30)
== END 2020-02-16 04:11 | disposition home or self-care (01) ==
LOC: EC 01:53
DX: R10.9 Unspecified abdominal pain (principal); R11.15 Cyclical vomiting syndrome unrelated to migraine; K21.9 Gastro-esophageal reflux disease without esophagitis; M54.5 Low back pain; F41.9 Anxiety disorder, unspecified; Z79.899 Other long term (current) drug therapy; Z90.49 Acquired absence of other specified parts of digestive tract; Z90.89 Acquired absence of other organs
CPT/HCPCS: 99284; 96372; J1170

== ENCOUNTER 2020-02-19 16:54 | Emergency (ER) | payer OTHER ==
[2020-02-19 17:09] VITALS: RESP 18
[2020-02-19] MEDS ORDERED: HYDROmorphone 1 MG/ML 1 ML SYRINGE IVP STA ×2 (17:34→18:54)
[2020-02-19] MEDS ORDERED: LORazepam 2 MG/ML INJ IV STA (17:34)
[2020-02-19 18:25] LABS: Basophils % (A) 0 %; Eosinophils # (A) 0.2 k/uL (0-0.7); Eosinophils % (A) 2 %; HCT 45.1 % (39.0-53.0); HGB 15.3 gm/dL (13.0-17.5); Lymphocytes # (A) 2.3 k/uL (1.0-4.8); Lymphocytes % (A) 20 %; MCH 29.5 pg (25.0-35.0); MCHC 33.9 g/dL (31.0-37.0); MCV 87.1 fL (80.0-100.0); Mean Platelet Volume 7.2; Monocytes # (A) 0.4 k/uL (0-1.0); Monocytes % (A) 4 %; Neutrophils # (A) 8.1 k/uL (1.3-7.7); Neutrophils % (A) 73 %; Platelet Count 444 k/uL (150-450); RBC 5.18 m/uL (4.30-5.90); WBC 11.2 k/uL (3.8-10.6)
[2020-02-19] MEDS: CAPSAICIN 0.025% CREAM 60 GM TUBE TOPICAL STA ×2 (18:26→18:30)
[2020-02-19 18:39] LABS: ALT 33 U/L (4-49); AST 23 U/L (17-59); African American GFR (CKD) >90 (>60 ml/min/1.73 sqM); Albumin 5.2 g/dL (3.5-5.0); Alkaline Phosphatase 70 U/L (38-126); Amylase 77 U/L (30-110); Anion Gap 10 mmol/L; Blood Urea Nitrogen 10 mg/dL (9-20); Calcium 10.4 mg/dL (8.4-10.2); Carbon Dioxide 26 mmol/L (22-30); Chloride 105 mmol/L (98-107); Glucose 100 mg/dL (74-99); Lipase 130 U/L (23-300); Non-African American GFR(CKD) >90 (>60 ml/min/1.73 sqM); Potassium 3.9 mmol/L (3.5-5.1); Sodium 141 mmol/L (137-145); Total Bilirubin 0.9 mg/dL (0.2-1.3); Total Protein 8.2 g/dL (6.3-8.2)
--- NOTE | 2020-02-19 18:49 | ED ---
Abdominal Pain HPI - General Chief Complaint: Abdominal Pain Stated Complaint: dizzy/nausea/vomiting Time Seen by Provider: 02/19/20 17:10 Source: patient Mode of arrival: ambulatory Limitations: no limitations - History of Present Illness Initial Comments: 34yo male presenting for cc of vomiting, nausea, abdominal pain. pt states he has CVS and that these are his typical symptoms. pt denies blood in the vomit. pt denies fever, covid like symtpoms such as fever, cough, congestion. pt states when the puking persisted into the evening he could not longer tolerate it and presented to the ER for treatment. Denies travel. Ketan this being different than his previous episodes of vomiting/abdominal pain secondary to cyclic vomiting syndrome (CVS) Remaining ROS (-). - Related Data Home Medications Medication Instructions Recorded Confirmed Omeprazole 20 mg PO DAILY 07/10/18 02/19/20 LORazepam [Ativan] 1 mg PO QID PRN 08/13/18 02/19/20 Amitriptyline HCl [Elavil] 150 mg PO HS 10/08/19 02/19/20 Baclofen [Lioresal] 20 mg PO QID PRN 10/08/19 02/19/20 Hydrocodone/Acetaminophen [[place] 1 tab PO Q6H PRN 01/27/20 02/19/20 10-325] Ondansetron Odt [Zofran Odt] 8 mg PO Q8HR PRN 02/19/20 02/19/20 Allergies Allergy/AdvReac Type Severity Reaction Status Date / Time No Known Allergies Allergy Verified 02/19/20 22:10 Review of Systems ROS Statement: Those systems with pertinent positive or pertinent negative responses have been documented in the HPI. ROS Other: All systems not noted in ROS Statement are negative. Past Medical History Past Medical History: Asthma, GERD/Reflux Additional Past Medical History / Comment(s): cyclic vomiting syndrome, numbness/tingling bilateral feet when vomiting, low back pain/ruptured discs, occupational asthma, History of Any Multi-Drug Resistant Organisms: None Reported Past Surgical History: Adenoidectomy, Appendectomy, Cholecystectomy, Orthopedic Surgery, Tonsillectomy Additional Past Surgical History / Comment(s): EGD, ORIF bilateral ankles, Past Anesthesia/Blood Transfusion Reactions: No Reported Reaction Past Psychological History: Anxiety Smoking Status: Never smoker Past Alcohol Use History: None Reported Past Drug Use History: Marijuana - Past Family History Father Family Medical History: No Reported History Mother Family Medical History: Diabetes Mellitus Additional Family Medical History / Comment(s): severe food allergies General Exam - General Exam Comments Initial Comments: General: The patient is awake and alert, in no distress Eye: +3mm pupils are equal, round and reactive to light, extra-ocular movements are intact. No nystagmus. There is normal conjunctiva bilaterally. No signs of icterus. Ears, nose, mouth and throat: There are moist mucous membranes and no oral lesions. Cardiovascular: There is a regular rate and rhythm. No murmur, rub or gallop is appreciated. Respiratory: Lungs are clear to auscultation, respirations are non-labored, breath sounds are equal. No wheezes, stridor, rales, or rhonchi. Gastrointestinal: Soft, non-distended, non-tender abdomen without masses or organomegaly noted. There is no rebound or guarding present. Musculoskeletal: Normal ROM, no tenderness. Strength 5/5. Sensation intact. Radial pulses equal bilaterally 2+. Neurological: A&O x 3. CN II-XII intact grossly, There are no obvious motor or sensory deficits. Coordination appears grossly intact. Speech is normal. Skin: Skin is warm and dry and no rashes or lesions are noted. Psychiatric: Cooperative, appropriate mood & affect, normal judgment. Limitations: no limitations Course Vital Signs 02/19/20 02/19/20 17:06 19:16 Temperature 97.9 F 98.4 F Pulse Rate 94 97 Respiratory 18 18 Rate Blood Pressure 140/89 O2 Sat by Pulse 98 99 Oximetry Medical Decision Making - Medical Decision Making 34yo male presenting for cc vomiting, history of cyclic vomiting syndrome. Labs stable. vomiting improved. pt discharged with pcp f/u. Dr Florian is agreeable to care plan. - Lab Data Result diagrams: 02/19/20 18:19 02/19/20 18:19 Lab Results 02/19/20 02/19/20 Range/Units 18:19 18:19 WBC 11.2 H (3.8-10.6) k/uL RBC 5.18 (4.30-5.90) m/uL Hgb 15.3 (13.0-17.5) gm/dL Hct 45.1 (39.0-53.0) % MCV 87.1 (80.0-100.0) fL MCH 29.5 (25.0-35.0) pg MCHC 33.9 (31.0-37.0) g/dL RDW 13.0 (11.5-15.5) % Plt Count 444 (150-450) k/uL MPV 7.2 Neutrophils % 73 % Lymphocytes % 20 % Monocytes % 4 % Eosinophils % 2 % Basophils % 0 % Neutrophils # 8.1 H (1.3-7.7) k/uL Lymphocytes # 2.3 (1.0-4.8) k/uL Monocytes # 0.4 (0-1.0) k/uL Eosinophils # 0.2 (0-0.7) k/uL Basophils # 0.0 (0-0.2) k/uL Sodium 141 (137-145) mmol/L Potassium 3.9 (3.5-5.1) mmol/L Chloride 105 (98-107) mmol/L Carbon Dioxide 26 (22-30) mmol/L Anion Gap 10 mmol/L BUN 10 (9-20) mg/dL Creatinine 0.70 (0.66-1.25) mg/dL Est GFR (CKD-EPI)AfAm >90 (>60 ml/min/1.73 sqM) Est GFR (CKD-EPI)NonAf >90 (>60 ml/min/1.73 sqM) Glucose 100 H (74-99) mg/dL Calcium 10.4 H (8.4-10.2) mg/dL Total Bilirubin 0.9 (0.2-1.3) mg/dL AST 23 (17-59) U/L ALT 33 (4-49) U/L Alkaline Phosphatase 70 (38-126) U/L Total Protein 8.2 (6.3-8.2) g/dL Albumin 5.2 H (3.5-5.0) g/dL Amylase 77 (30-110) U/L Lipase 130 (23-300) U/L Disposition Clinical Impression: Chronic abdominal pain, Cyclic vomiting syndrome Disposition: HOME SELF-CARE Condition: Good Instructions (If sedation given, give patient instructions): Abdominal Pain (ED) Additional Instructions: Please use medication as discussed. Please follow-up with family doctor in the next 2 days. Please return to emergency room if the symptoms increase or worsen or for any other concerns. Is patient prescribed a controlled substance at d/c from ED?: No Referrals: Sher Lewis MD [Primary Care Provider] - 1-2 days Time of Disposition: 18:57
[2020-02-19] MEDS ORDERED: diphenhydrAMINE 50 MG/ML 1 ML VIAL IVP STA (18:54)
[2020-02-19] MEDS ORDERED: ONDANSETRON 4 MG/2 ML VIAL IVP STA (18:54)
[2020-02-19 19:18] VITALS: BP 140/89; PULSE 97; TEMP 98.4
== END 2020-02-19 19:53 | disposition home or self-care (01) ==
LOC: EC 16:54
DX: R11.15 Cyclical vomiting syndrome unrelated to migraine (principal); G89.29 Other chronic pain; R10.9 Unspecified abdominal pain
CPT/HCPCS: 99284 ×2; 96374 ×2; 96375 ×4; 96376 ×2; 80053; 82150; 83690; 85025; J2060; J1200; J2405; J1170

== ENCOUNTER 2020-02-19 22:06 | Observation (INO) | payer OTHER ==
[2020-02-19] MEDS ORDERED: SODIUM CHLORIDE 0.9% 1,000 ML IV ONE (22:32)
[2020-02-19] MEDS ORDERED: ONDANSETRON 4 MG/2 ML VIAL IVP STA (22:32)
--- NOTE | 2020-02-19 23:26 | ED ---
Abdominal Pain HPI - General Chief Complaint: Abdominal Pain Stated Complaint: Abd Pain-Revisit Time Seen by Provider: 02/19/20 22:20 Source: patient Mode of arrival: ambulatory Limitations: no limitations - History of Present Illness Initial Comments: Patient is 34-year-old man who reportedly has history of cyclic vomiting syndrome, presenting with a flareup of his condition. Vision complains of abdominal discomfort also has had over 10 episodes of vomiting today. Patient states he is out of his home ondansetron. Patient had been seen earlier and his symptoms had resolved but he states that they recurred approximately 2 hours after he left. MD Complaint: abdominal pain, other (Vomiting) -: days(s) Location: diffuse Radiation: none Migration to: no migration Severity: severe Quality: cramping Consistency: colicky Improves With: nothing Worsens With: nothing Associated Symptoms: nausea, vomiting, diarrhea - Related Data Home Medications Medication Instructions Recorded Confirmed Omeprazole 20 mg PO DAILY 07/10/18 02/19/20 LORazepam [Ativan] 1 mg PO QID PRN 08/13/18 02/19/20 Amitriptyline HCl [Elavil] 150 mg PO HS 10/08/19 02/19/20 Baclofen [Lioresal] 20 mg PO QID PRN 10/08/19 02/19/20 Hydrocodone/Acetaminophen [[place] 1 tab PO Q6H PRN 01/27/20 02/19/20 10-325] Ondansetron Odt [Zofran Odt] 8 mg PO Q8HR PRN 02/19/20 02/19/20 Allergies Allergy/AdvReac Type Severity Reaction Status Date / Time No Known Allergies Allergy Verified 02/19/20 22:10 Review of Systems ROS Statement: Those systems with pertinent positive or pertinent negative responses have been documented in the HPI. ROS Other: All systems not noted in ROS Statement are negative. Constitutional: Denies: fever, chills Respiratory: Denies: cough, dyspnea Cardiovascular: Denies: chest pain, palpitations, edema, syncope Gastrointestinal: Reports: abdominal pain, nausea, vomiting, diarrhea. Denies: constipation, hematemesis, melena, hematochezia Genitourinary: Denies: dysuria, hematuria, testicular pain, testicular mass Musculoskeletal: Denies: back pain Skin: Denies: rash Neurological: Denies: headache, weakness Past Medical History Past Medical History: Asthma, GERD/Reflux Additional Past Medical History / Comment(s): cyclic vomiting syndrome, numbness/tingling bilateral feet when vomiting, low back pain/ruptured discs, occupational asthma, History of Any Multi-Drug Resistant Organisms: None Reported Past Surgical History: Adenoidectomy, Appendectomy, Cholecystectomy, Orthopedic Surgery, Tonsillectomy Additional Past Surgical History / Comment(s): EGD, ORIF bilateral ankles, Past Anesthesia/Blood Transfusion Reactions: No Reported Reaction Past Psychological History: Anxiety Smoking Status: Never smoker Past Alcohol Use History: None Reported Past Drug Use History: Marijuana - Past Family History Father Family Medical History: No Reported History Mother Family Medical History: Diabetes Mellitus Additional Family Medical History / Comment(s): severe food allergies General Exam Limitations: no limitations General appearance: alert, in no apparent distress Head exam: Present: atraumatic, normocephalic Eye exam: Present: normal appearance. Absent: scleral icterus, conjunctival injection ENT exam: Present: normal oropharynx Neck exam: Present: normal inspection Respiratory exam: Present: normal lung sounds bilaterally. Absent: respiratory distress, wheezes, rales, rhonchi, stridor Cardiovascular Exam: Present: regular rate, normal rhythm, normal heart sounds. Absent: systolic murmur, diastolic murmur, rubs, gallop GI/Abdominal exam: Present: soft. Absent: distended, tenderness, guarding, rebound, rigid, hypoactive bowel sounds, organomegaly, mass, pulsatile mass Extremities exam: Present: normal inspection, normal capillary refill. Absent: pedal edema, calf tenderness Back exam: Present: normal inspection. Absent: CVA tenderness (R), CVA tenderness (L) Neurological exam: Present: alert Skin exam: Present: warm, dry, intact, normal color. Absent: rash Course Vital Signs 02/19/20 22:08 Temperature 98.4 F Pulse Rate 77 Respiratory 18 Rate Blood Pressure 151/92 O2 Sat by Pulse 100 Oximetry Disposition Clinical Impression: Intractable nausea and vomiting Disposition: ADMITTED IP TO THIS HOSP Condition: Fair Is patient prescribed a controlled substance at d/c from ED?: No
[2020-02-19] MEDS ORDERED: MORPHINE SULFATE 4 MG/ML SYRINGE IV STA (23:49)
[2020-02-20] MEDS ORDERED: SODIUM CHLORIDE 0.9% 1,000 ML IV ONE (00:09)
[2020-02-20] MEDS ORDERED: HYDROmorphone 0.5 MG/0.5 ML SYRINGE IVP STA (00:59)
[2020-02-20] MEDS ORDERED: ONDANSETRON 4 MG/2 ML VIAL IVP PRN (02:02)
[2020-02-20] MEDS ORDERED: NALOXONE 0.4 MG/ML 1 ML VIAL IV PRN (02:02)
[2020-02-20] MEDS ORDERED: PROCHLORPERAZINE SUPPOSITORY 25 MG SUPP RECTAL PRN (02:02)
[2020-02-20] MEDS ORDERED: BACLOFEN 10 MG TAB PO PRN (02:04)
[2020-02-20] MEDS ORDERED: HYDROcodone/APAP 10-325MG 1 EACH TAB PO PRN (02:04)
[2020-02-20] MEDS ORDERED: LORazepam 1 MG TAB PO PRN (02:04)
[2020-02-20] MEDS ORDERED: METOCLOPRAMIDE 5 MG/ML 2 ML VIAL IVP STA (02:05)
[2020-02-20] MEDS ORDERED: SODIUM CHLORIDE 0.9% 1,000 ML IV SCH (02:15)
[2020-02-20] MEDS: MORPHINE SULFATE 4 MG/ML SYRINGE IV PRN ×3 (06:44→15:17)
[2020-02-20] MEDS ORDERED: PANTOPRAZOLE 40 MG TABLET PO SCH (07:30)
[2020-02-20] MEDS ORDERED: FAMOTIDINE 20 MG TAB PO SCH (09:00)
[2020-02-20 11:20] LABS: HCT 39.2 % (39.0-53.0); HGB 13.4 gm/dL (13.0-17.5); MCH 29.8 pg (25.0-35.0); MCHC 34.1 g/dL (31.0-37.0); MCV 87.4 fL (80.0-100.0); Mean Platelet Volume 6.9; Platelet Count 329 k/uL (150-450); RBC 4.48 m/uL (4.30-5.90); RDW 12.5 % (11.5-15.5); WBC 8.5 k/uL (3.8-10.6)
[2020-02-20 11:34] LABS: ALT 27 U/L (4-49); AST 19 U/L (17-59); African American GFR (CKD) >90 (>60 ml/min/1.73 sqM); Albumin 4.1 g/dL (3.5-5.0); Alkaline Phosphatase 52 U/L (38-126); Anion Gap 3 mmol/L; Blood Urea Nitrogen 5 mg/dL (9-20); Calcium 9.2 mg/dL (8.4-10.2); Carbon Dioxide 28 mmol/L (22-30); Chloride 106 mmol/L (98-107); Glucose 87 mg/dL (74-99); Non-African American GFR(CKD) >90 (>60 ml/min/1.73 sqM); Potassium 3.7 mmol/L (3.5-5.1); Sodium 137 mmol/L (137-145); Total Bilirubin 1.6 mg/dL (0.2-1.3); Total Protein 6.5 g/dL (6.3-8.2)
[2020-02-20 13:47] VITALS: BP 137/78; PULSE 97; RESP 18; TEMP 98.3
[2020-02-20] MEDS ORDERED: AMITRIPTYLINE HCL 25 MG TAB PO SCH (21:00)
--- NOTE | 2020-02-20 23:16 | P.HPIM ---
History of Present Illness H&P Date: 02/20/20 Chief Complaint: Abdominal pain History of presenting complaint: This is a pleasant 34-year-old patient of Dr. Sher Lewis. Chronic stable medical conditions include lower back pain, long history of cyclical vomiting syndrome and multiple admissions for the same. Patient yesterday afternoon while at work started having increasing abdominal pain. Nausea and vomiting. No fever no chills. No diarrhea. Presented to ER. [facility] to have an exacerbation of cyclical vomiting syndrome. Was put on IV fluids IV pain medications. Feeling better this morning. Review of systems: GEN.: Tired EYES: None HEENT: None NECK: None RESPIRATORY: None CARDIOVASCULAR: None GASTROINTESTINAL: As above GENITOURINARY: None MUSCULOSKELETAL: Chronic low back pain LYMPHATICS: None HEMATOLOGICAL: None PSYCHIATRY: None NEUROLOGICAL: None Past medical history: Cyclical vomiting syndrome, GERD, chronic low back pain, obesity Social history: Works at a [employer]. No smoking. No alcohol. Lives with girlfriend. Family history: Reviewed, noncontributory to presentation Physical examination: VITAL SIGNS: 98.4, 77, 18, 119/82, 100% room air-upon presentation GENERAL: BMI 33, sitting up on the bed, on a smart phone appearing comfortable EYES: Pupils equal. Conjunctiva normal. HEENT: External appearance of nose and ears normal, oral cavity dry. NECK: JVD not raised; masses not palpable. HEART: First and second heart sounds are normal; no edema. LUNGS: Respiratory rate normal; clear to auscultation. ABDOMEN: Soft, upper abdominal tenderness, no guarding or rigidity, liver spleen not palpable, no masses palpable. PSYCH: Alert and oriented x3; mood and affect normal NEUROLOGICAL: Cranial nerves grossly intact; no facial asymmetry, power and sensation grossly intact. LYMPHATICS: No lymph nodes palpable in the axilla and neck Investigations: White count 8.5 hemoglobin 13.4 platelets 329 potassium 3.7 creatinine 0.66 total bilirubin 1.6 Assessment: -Acute exacerbation of cyclical vomiting syndrome. -Chronic low back pain from herniated disc -Obesity BMI 33.0 -Aorxt-[id number] Plan: Patient ER was started on IV Zofran, IV fluids, given IV morphine. Changed over to Dilaudid. This morning patient is feeling better. Did tolerate clear liquids. That'll be advanced to full liquids. And it does well can even go home later tonight. Discussed with the patient. Past Medical History Past Medical History: Asthma, GERD/Reflux Additional Past Medical History / Comment(s): cyclic vomiting syndrome, numbness/tingling bilateral feet when vomiting, low back pain/ruptured discs, occupational asthma, History of Any Multi-Drug Resistant Organisms: None Reported Past Surgical History: Adenoidectomy, Appendectomy, Cholecystectomy, Orthopedic Surgery, Tonsillectomy Additional Past Surgical History / Comment(s): EGD, ORIF bilateral ankles, Past Anesthesia/Blood Transfusion Reactions: No Reported Reaction Past Psychological History: Anxiety Smoking Status: Never smoker Past Alcohol Use History: None Reported Past Drug Use History: Marijuana - Past Family History Father Family Medical History: No Reported History Mother Family Medical History: Diabetes Mellitus Additional Family Medical History / Comment(s): severe food allergies Medications and Allergies Home Medications Medication Instructions Recorded Confirmed Type Omeprazole 20 mg PO DAILY 07/10/18 02/19/20 History LORazepam [Ativan] 1 mg PO QID PRN 08/13/18 02/19/20 History Amitriptyline HCl [Elavil] 150 mg PO HS 10/08/19 02/19/20 History Baclofen [Lioresal] 20 mg PO QID PRN 10/08/19 02/19/20 History Hydrocodone/Acetaminophen [[place] 1 tab PO Q6H PRN 01/27/20 02/19/20 History 10-325] Ondansetron Odt [Zofran Odt] 8 mg PO Q8HR PRN 02/19/20 02/19/20 History Allergies Allergy/AdvReac Type Severity Reaction Status Date / Time No Known Allergies Allergy Verified 02/19/20 22:10 Physical Exam Vitals: Vital Signs Temp Pulse Resp BP Pulse Ox 02/20/20 09:00 97.6 F 76 16 116/76 99 02/20/20 08:00 98.0 F 78 16 128/76 98 02/20/20 07:17 97.9 F 87 16 119/82 100 02/19/20 22:08 98.4 F 77 18 151/92 100 Intake and Output 02/19/20 02/20/20 02/20/20 22:59 06:59 14:59 Other: Weight 113.398 kg Results CBC & Chem 7: 02/20/20 11:09 02/20/20 11:09
--- NOTE | 2020-02-20 23:18 | P.DS ---
Providers Date of admission: 02/20/20 02:03 Expected date of discharge: 02/20/20 Attending physician: Wade Rebolledo Primary care physician: Sher Lewis [facility] Course: Chief Complaint: Abdominal pain History of presenting complaint: This is a pleasant 34-year-old patient of Dr. Sher Lewis. Chronic stable medical conditions include lower back pain, long history of cyclical vomiting syndrome and multiple admissions for the same. Patient yesterday afternoon while at work started having increasing abdominal pain. Nausea and vomiting. No fever no chills. No diarrhea. Presented to ER. [place] to have an exacerbation of cyclical vomiting syndrome. Was put on IV fluids IV pain medications. Today-doing much better this morning. Diet was advanced. By evening patient was back to his normal self and stable for discharge. Discussed with the patient. Did receive IV fluids. Past medical history: Cyclical vomiting syndrome, GERD, chronic low back pain, obesity Social history: Works at a [employer]. No smoking. No alcohol. Lives with girlfriend. Family history: Reviewed, noncontributory to presentation Physical examination: VITAL SIGNS: 98.3, 97, 18, 137 with 78, 97% room air GENERAL: BMI 33, comfortable EYES: Pupils equal. Conjunctiva normal. HEENT: External appearance of nose and ears normal, oral cavity dry. NECK: JVD not raised; masses not palpable. HEART: First and second heart sounds are normal; no edema. LUNGS: Respiratory rate normal; clear to auscultation. ABDOMEN: Soft, upper abdominal tenderness, no guarding or rigidity, liver spleen not palpable, no masses palpable. PSYCH: Alert and oriented x3; mood and affect normal Investigations: White count 8.5 hemoglobin 13.4 platelets 329 potassium 3.7 creatinine 0.66 total bilirubin 1.6 Assessment: -Acute exacerbation of cyclical vomiting syndrome. -Chronic low back pain from herniated disc -Obesity BMI 33.0 -[id number] Disposition: Home Patient Condition at Discharge: Stable Plan - Discharge Summary New Discharge Prescriptions: No Action Omeprazole 20 mg PO DAILY LORazepam [Ativan] 1 mg PO QID PRN PRN Reason: Anxiety Baclofen [Lioresal] 20 mg PO QID PRN PRN Reason: Muscle Spasm Amitriptyline HCl [Elavil] 150 mg PO HS Hydrocodone/Acetaminophen [[place] 10-325] 1 tab PO Q6H PRN PRN Reason: Pain Ondansetron Odt [Zofran Odt] 8 mg PO Q8HR PRN PRN Reason: Nausea Discharge Medication List Omeprazole 20 mg PO DAILY 07/10/18 [History] LORazepam [Ativan] 1 mg PO QID PRN 08/13/18 [History] Amitriptyline HCl [Elavil] 150 mg PO HS 10/08/19 [History] Baclofen [Lioresal] 20 mg PO QID PRN 10/08/19 [History] Hydrocodone/Acetaminophen [[place] 10-325] 1 tab PO Q6H PRN 01/27/20 [History] Ondansetron Odt [Zofran Odt] 8 mg PO Q8HR PRN 02/19/20 [History] Follow up Appointment(s)/Referral(s): Sher Lewis MD [Primary Care Provider] - 1-2 days Discharge Disposition: Left Against Medical Advice
== END 2020-02-20 16:20 | disposition left against medical advice (07) ==
LOC: EC 22:06 → 1SOBS 02-20 02:03
PROVIDERS: ADMIT Hospitalist; ATTEND Hospitalist
DX: R11.15 Cyclical vomiting syndrome unrelated to migraine (principal); R10.9 Unspecified abdominal pain; J45.998 Other asthma; K21.9 Gastro-esophageal reflux disease without esophagitis; R17 Unspecified jaundice; R20.0 Anesthesia of skin; R20.2 Paresthesia of skin; F41.9 Anxiety disorder, unspecified; Z83.3 Family history of diabetes mellitus; G89.29 Other chronic pain; M54.5 Low back pain; E66.9 Obesity, unspecified; Z68.33 Body mass index [BMI] 33.0-33.9, adult; Z90.89 Acquired absence of other organs; Z90.49 Acquired absence of other specified parts of digestive tract; Z98.890 Other specified postprocedural states; Z79.899 Other long term (current) drug therapy
CPT/HCPCS: 96376; 96361 ×2; 96374; 96375 ×2; 99284; 80053; 85027; G0378; J2270 ×2; J2765; J2405 ×2; J1170

== ENCOUNTER 2020-04-04 00:55 | Emergency (ER) | payer OTHER ==
[2020-04-04] MEDS ORDERED: SODIUM CHLORIDE 0.9% 500 ML 500 ML IV STA (01:10)
[2020-04-04] MEDS ORDERED: SODIUM CHLORIDE 0.9% 1,000 ML IV STA (01:10)
[2020-04-04] MEDS ORDERED: diphenhydrAMINE 50 MG/ML 1 ML VIAL IVP STA (01:11)
[2020-04-04] MEDS ORDERED: HYDROmorphone 1 MG/ML 1 ML SYRINGE IVP STA ×3 (01:11→03:00)
[2020-04-04] MEDS ORDERED: FAMOTIDINE 20 MG/2 ML VIAL IV STA (01:11)
[2020-04-04] MEDS ORDERED: LORazepam 2 MG/ML INJ IV STA (01:11)
[2020-04-04] MEDS ORDERED: METOCLOPRAMIDE 5 MG/ML 2 ML VIAL IVP STA (01:11)
[2020-04-04 01:33] LABS: ALT 36 U/L (4-49); AST 29 U/L (17-59); African American GFR (CKD) >90 (>60 ml/min/1.73 sqM); Albumin 5.4 g/dL (3.5-5.0); Alkaline Phosphatase 85 U/L (38-126); Anion Gap 10 mmol/L; Blood Urea Nitrogen 15 mg/dL (9-20); Calcium 10.9 mg/dL (8.4-10.2); Carbon Dioxide 30 mmol/L (22-30); Chloride 101 mmol/L (98-107); Glucose 132 mg/dL (74-99); Lipase 130 U/L (23-300); Non-African American GFR(CKD) >90 (>60 ml/min/1.73 sqM); Sodium 141 mmol/L (137-145); Total Bilirubin 1.2 mg/dL (0.2-1.3); Total Protein 8.4 g/dL (6.3-8.2)
--- NOTE | 2020-04-04 01:40 | ED ---
Nausea/Vomiting/Diarrhea HPI - General Chief complaint: Nausea/Vomiting/Diarrhea Stated complaint: Abd Pain Time Seen by Provider: 04/04/20 01:03 Source: patient Mode of arrival: ambulatory Limitations: no limitations - History of Present Illness Initial comments: 35 year-old male patient presents to the emergency department for evaluation of abdominal pain and vomiting. States symptoms started about 2 hours ago. Patient states symptoms are chronic and he is well known to our department. Has history of cyclic vomiting syndrome. He denies taking anything for pain or nausea at home. Denies any fever or chills. Denies constipation or diarrhea. Denies hematochezia, melena, or hematemesis. Has had cholecystectomy and appendectomy in the past. Patient denies any recent rash, cough, shortness of breath, chest pain, back pain, numbness, tingling, dizziness, weakness, hematuria, dysuria, urinary urgency, urinary frequency, headache, visual changes, or any other complaints. - Related Data Home Medications Medication Instructions Recorded Confirmed Omeprazole 20 mg PO DAILY 07/10/18 02/19/20 LORazepam [Ativan] 1 mg PO QID PRN 08/13/18 02/19/20 Amitriptyline HCl [Elavil] 150 mg PO HS 10/08/19 02/19/20 Baclofen [Lioresal] 20 mg PO QID PRN 10/08/19 02/19/20 Hydrocodone/Acetaminophen [[place] 1 tab PO Q6H PRN 01/27/20 02/19/20 10-325] Ondansetron Odt [Zofran Odt] 8 mg PO Q8HR PRN 02/19/20 02/19/20 Allergies Allergy/AdvReac Type Severity Reaction Status Date / Time No Known Allergies Allergy Verified 04/04/20 19:10 Review of Systems ROS Statement: Those systems with pertinent positive or pertinent negative responses have been documented in the HPI. ROS Other: All systems not noted in ROS Statement are negative. Past Medical History Past Medical History: Asthma, GERD/Reflux Additional Past Medical History / Comment(s): cyclic vomiting syndrome, numbness/tingling bilateral feet when vomiting, low back pain/ruptured discs, occupational asthma, History of Any Multi-Drug Resistant Organisms: None Reported Past Surgical History: Adenoidectomy, Appendectomy, Cholecystectomy, Orthopedic Surgery, Tonsillectomy Additional Past Surgical History / Comment(s): EGD, ORIF bilateral ankles, Past Anesthesia/Blood Transfusion Reactions: No Reported Reaction Past Psychological History: Anxiety Smoking Status: Never smoker Past Alcohol Use History: None Reported Past Drug Use History: Marijuana - Past Family History Father Family Medical History: No Reported History Mother Family Medical History: Diabetes Mellitus Additional Family Medical History / Comment(s): severe food allergies General Exam Limitations: no limitations General appearance: alert, in no apparent distress, other (Physical well- developed, well-nourished adult male patient in mild distress related to pain and vomiting. Vital signs upon presentation are temperature 98.0F, pulse 101, respirations 20, pulse ox 98% on room air.) Eye exam: Present: normal appearance, PERRL, EOMI. Absent: scleral icterus, conjunctival injection, periorbital swelling ENT exam: Present: normal exam, normal oropharynx, mucous membranes moist Respiratory exam: Present: normal lung sounds bilaterally. Absent: respiratory distress, wheezes, rales, rhonchi, stridor Cardiovascular Exam: Present: regular rate, normal rhythm, normal heart sounds. Absent: systolic murmur, diastolic murmur, rubs, gallop, clicks GI/Abdominal exam: Present: soft, tenderness (Upper abdomen), normal bowel sounds. Absent: distended, guarding, rebound, rigid Neurological exam: Present: alert, oriented X3, CN II-XII intact Psychiatric exam: Present: anxious Skin exam: Present: warm, dry, intact, normal color. Absent: rash Course Vital Signs 04/04/20 04/04/20 04/04/20 00:59 01:38 02:01 Temperature 98 F Pulse Rate 101 H 76 80 Respiratory 20 24 20 Rate Blood Pressure 148/105 138/120 O2 Sat by Pulse 98 99 98 Oximetry 04/04/20 04/04/20 02:36 03:42 Temperature 98.6 F Pulse Rate 81 87 Respiratory 24 22 Rate Blood Pressure 136/96 158/74 O2 Sat by Pulse 98 98 Oximetry Medical Decision Making - Medical Decision Making 35-year-old male patient with past medical history significant for cyclic vomiting syndrome, abdominal pain presents to the emergency department today with increased symptoms over the last couple of hours. Physical examination revealed tenderness to the upper abdomen. Labs reviewed and are relatively unremarkable. Patient was given IV fluids, medications here in the department. Did have improvement of symptoms be discharged from follow up with primary care physician for recheck in 1-2 days. Return parameters were discussed in detail. He verbalizes understanding and agrees with this plan. Case discussed with my attending Dr. Hamilton. - Lab Data Result diagrams: 04/04/20 01:15 04/04/20 01:15 Lab Results 04/04/20 04/04/20 04/04/20 Range/Units 01:15 01:15 02:30 WBC 13.9 H (3.8-10.6) k/uL RBC 5.42 (4.30-5.90) m/uL Hgb 16.2 (13.0-17.5) gm/dL Hct 47.6 (39.0-53.0) % MCV 87.9 (80.0-100.0) fL MCH 30.0 (25.0-35.0) pg MCHC 34.1 (31.0-37.0) g/dL RDW 12.5 (11.5-15.5) % Plt Count 376 (150-450) k/uL MPV 7.3 Neutrophils % 75 % Lymphocytes % 18 % Monocytes % 5 % Eosinophils % 1 % Basophils % 0 % Neutrophils # 10.4 H (1.3-7.7) k/uL Lymphocytes # 2.5 (1.0-4.8) k/uL Monocytes # 0.7 (0-1.0) k/uL Eosinophils # 0.2 (0-0.7) k/uL Basophils # 0.1 (0-0.2) k/uL Sodium 141 (137-145) mmol/L Potassium 3.9 (3.5-5.1) mmol/L Chloride 101 (98-107) mmol/L Carbon Dioxide 30 (22-30) mmol/L Anion Gap 10 mmol/L BUN 15 (9-20) mg/dL Creatinine 0.88 (0.66-1.25) mg/dL Est GFR (CKD-EPI)AfAm >90 (>60 ml/min/1.73 sqM) Est GFR (CKD-EPI)NonAf >90 (>60 ml/min/1.73 sqM) Glucose 132 H (74-99) mg/dL Calcium 10.9 H (8.4-10.2) mg/dL Total Bilirubin 1.2 (0.2-1.3) mg/dL AST 29 (17-59) U/L ALT 36 (4-49) U/L Alkaline Phosphatase 85 (38-126) U/L Total Protein 8.4 H (6.3-8.2) g/dL Albumin 5.4 H (3.5-5.0) g/dL Lipase 130 (23-300) U/L Urine Color Yellow Urine Appearance Cloudy (Clear) Urine pH 7.0 (5.0-8.0) Ur Specific [place] 1.024 (1.001-1.035) Urine Protein Trace H (Negative) Urine Glucose (UA) Negative (Negative) Urine Ketones 3+ H (Negative) Urine Blood Negative (Negative) Urine Nitrite Negative (Negative) Urine Bilirubin Negative (Negative) Urine Urobilinogen <2.0 (<2.0) mg/dL Ur Leukocyte Esterase Negative (Negative) Urine RBC 2 (0-5) /hpf Urine WBC 1 (0-5) /hpf Amorphous Sediment Occasional H (None) /hpf Urine Mucus Rare H (None) /hpf Disposition Clinical Impression: Abdominal pain, Vomiting Disposition: HOME SELF-CARE Condition: Good Instructions (If sedation given, give patient instructions): Acute Nausea and Vomiting (ED), Abdominal Pain (ED) Additional Instructions: Start with clear liquids and advance as tolerated. Follow up with your primary care physician for recheck in 1-2 days. Return to the emergency department for any new, worsening, or concerning symptoms. Is patient prescribed a controlled substance at d/c from ED?: No Referrals: Sher Lewis MD [Primary Care Provider] - 1-2 days Time of Disposition: 03:01
[2020-04-04 01:47] LABS: Basophils # (A) 0.1 k/uL (0-0.2); Basophils % (A) 0 %; Eosinophils # (A) 0.2 k/uL (0-0.7); Eosinophils % (A) 1 %; HCT 47.6 % (39.0-53.0); HGB 16.2 gm/dL (13.0-17.5); Lymphocytes # (A) 2.5 k/uL (1.0-4.8); Lymphocytes % (A) 18 %; MCHC 34.1 g/dL (31.0-37.0); MCV 87.9 fL (80.0-100.0); Mean Platelet Volume 7.3; Monocytes # (A) 0.7 k/uL (0-1.0); Monocytes % (A) 5 %; Neutrophils # (A) 10.4 k/uL (1.3-7.7); Neutrophils % (A) 75 %; Platelet Count 376 k/uL (150-450); RBC 5.42 m/uL (4.30-5.90); RDW 12.5 % (11.5-15.5); WBC 13.9 k/uL (3.8-10.6)
[2020-04-04 01:56] LABS: Potassium 3.9 mmol/L (3.5-5.1)
[2020-04-04] MEDS ORDERED: ONDANSETRON 4 MG/2 ML VIAL IVP STA (02:10)
[2020-04-04 02:46] LABS: Amorphous Sediment,Urine Occasional /hpf; Appearance,Urine Cloudy (Clear); Bilirubin,Urine Negative (Negative); Blood,Urine Negative (Negative); Color,Urine Yellow; Glucose,Urine (UA) Negative (Negative); Ketones,Urine 3+ (Negative); Leukocyte Esterase,Urine Negative (Negative); Mucus,Urine Rare /hpf; Nitrite,Urine Negative (Negative); Protein,Urine Trace (Negative); RBC,Urine 2 /hpf (0-5); Specific Gravity,Urine 1.024 (1.001-1.035); Urobilinogen,Urine <2.0 mg/dL (<2.0); WBC,Urine 1 /hpf (0-5)
[2020-04-04 03:43] VITALS: BP 158/74; PULSE 87; RESP 22; TEMP 98.6
== END 2020-04-04 03:43 | disposition home or self-care (01) ==
LOC: EC 00:55
DX: R10.9 Unspecified abdominal pain (principal); R11.10 Vomiting, unspecified; K21.9 Gastro-esophageal reflux disease without esophagitis; F41.9 Anxiety disorder, unspecified; Z79.899 Other long term (current) drug therapy; Z87.19 Personal history of other diseases of the digestive system; Z90.49 Acquired absence of other specified parts of digestive tract
CPT/HCPCS: 36415; 80053; 83690; 85025; 81001; 99284; 96374; 96375 ×5; 96376 ×2; 96361 ×2; J2060; J1200; J2765; J2405; J1170

== ENCOUNTER 2020-04-04 19:07 | Emergency (ER) | payer OTHER ==
[2020-04-04 19:10] VITALS: TEMP 98.4
[2020-04-04] MEDS ORDERED: SODIUM CHLORIDE 0.9% 1,000 ML IV STA (19:33)
[2020-04-04] MEDS ORDERED: diphenhydrAMINE 50 MG/ML 1 ML VIAL IVP STA (19:33)
[2020-04-04] MEDS ORDERED: SODIUM CHLORIDE 0.9% 500 ML 500 ML IV STA (19:33)
[2020-04-04] MEDS ORDERED: HYDROmorphone 1 MG/ML 1 ML SYRINGE IVP STA ×2 (19:33→21:04)
[2020-04-04] MEDS ORDERED: FAMOTIDINE 20 MG/2 ML VIAL IV STA (19:33)
[2020-04-04] MEDS ORDERED: ONDANSETRON 4 MG/2 ML VIAL IVP STA (19:33)
--- NOTE | 2020-04-04 19:43 | ED ---
General Adult HPI - General Chief complaint: Abdominal Pain Stated complaint: stomach pain Time Seen by Provider: 04/04/20 19:15 Source: patient Mode of arrival: ambulatory Limitations: no limitations - History of Present Illness Initial comments: 35 year-old male patient with past history significant for cyclic vomiting syndrome and chronic abdominal pain presents to the emergency department for the second time today for vomiting and abdominal pain. States that he was able to go home and sleep this morning, but when he woke up his symptoms returned. States he is vomiting, having upper abdominal pain, and is unable to keep down food or fluids. Has had cholecystectomy and appendectomy in the past. Denies constipation or diarrhea. Denies any hematochezia, melena, hematemesis. Denies fever or chills. Patient denies any recent rash, cough, shortness of breath, chest pain, back pain, numbness, tingling, dizziness, weakness, hematuria, dysuria, urinary urgency, urinary frequency, headache, visual changes, or any other complaints. - Related Data Home Medications Medication Instructions Recorded Confirmed Omeprazole 20 mg PO DAILY 07/10/18 02/19/20 LORazepam [Ativan] 1 mg PO QID PRN 08/13/18 02/19/20 Amitriptyline HCl [Elavil] 150 mg PO HS 10/08/19 02/19/20 Baclofen [Lioresal] 20 mg PO QID PRN 10/08/19 02/19/20 Hydrocodone/Acetaminophen [[place] 1 tab PO Q6H PRN 01/27/20 02/19/20 10-325] Ondansetron Odt [Zofran Odt] 8 mg PO Q8HR PRN 02/19/20 02/19/20 Allergies Allergy/AdvReac Type Severity Reaction Status Date / Time No Known Allergies Allergy Verified 04/04/20 19:10 Review of Systems ROS Statement: Those systems with pertinent positive or pertinent negative responses have been documented in the HPI. ROS Other: All systems not noted in ROS Statement are negative. Past Medical History Past Medical History: Asthma, GERD/Reflux Additional Past Medical History / Comment(s): cyclic vomiting syndrome, numbness/tingling bilateral feet when vomiting, low back pain/ruptured discs, occupational asthma, History of Any Multi-Drug Resistant Organisms: None Reported Past Surgical History: Adenoidectomy, Appendectomy, Cholecystectomy, Orthopedic Surgery, Tonsillectomy Additional Past Surgical History / Comment(s): EGD, ORIF bilateral ankles, Past Anesthesia/Blood Transfusion Reactions: No Reported Reaction Past Psychological History: Anxiety Smoking Status: Never smoker Past Alcohol Use History: None Reported Past Drug Use History: Marijuana - Past Family History Father Family Medical History: No Reported History Mother Family Medical History: Diabetes Mellitus Additional Family Medical History / Comment(s): severe food allergies General Exam Limitations: no limitations General appearance: alert, in no apparent distress, other (Physical well- developed, well-nourished male patient in mild distress related to pain and vomiting. Vital signs upon presentation are temperature 98.4F, pulse 73, respirations 16, blood pressure 116/77, pulse ox 98% on room air.) Eye exam: Present: normal appearance, PERRL, EOMI. Absent: scleral icterus, conjunctival injection, periorbital swelling ENT exam: Present: normal exam, normal oropharynx, mucous membranes moist Respiratory exam: Present: normal lung sounds bilaterally. Absent: respiratory distress, wheezes, rales, rhonchi, stridor Cardiovascular Exam: Present: regular rate, normal rhythm, normal heart sounds. Absent: systolic murmur, diastolic murmur, rubs, gallop, clicks GI/Abdominal exam: Present: soft, tenderness (upper abdomen), normal bowel elissa nds. Absent: distended, guarding, rebound, rigid Neurological exam: Present: alert, oriented X3, CN II-XII intact Psychiatric exam: Present: normal affect, normal mood Skin exam: Present: warm, dry, intact, normal color. Absent: rash Course Vital Signs 04/04/20 04/04/20 19:08 22:12 Temperature 98.4 F Pulse Rate 73 91 Respiratory 16 18 Rate Blood Pressure 116/77 118/72 O2 Sat by Pulse 98 95 Oximetry Medical Decision Making - Medical Decision Making 35-year-old male patient with past medical history significant for cyclic vomiting syndrome chronic abdominal pain presents to the emergency department today for evaluation of upper abdominal pain and vomiting. States his been having increased problems over the last couple days, was seen as the patient early this morning for similar symptoms. Physical examination did reveal upper abdominal tenderness. He is afebrile normal vital signs. Labs reviewed and did reveal elevated white blood cell count at 13 which is most likely reactive due to vomiting. He is given IV fluids and medications. Upon reevaluation he is resting much more comfortably in bed. He does want to be discharged as he has plans tomorrow. He was instructed to follow-up with his primary care physician for recheck in 1-2 days. Return parameters were discussed in detail. He verbalizes understanding and agrees with this plan. Case discussed with my attending Dr. Florian. - Lab Data Result diagrams: 04/04/20 19:51 04/04/20 19:51 Lab Results 04/04/20 04/04/20 04/04/20 Range/Units 19:51 19:51 19:51 WBC 13.0 H (3.8-10.6) k/uL RBC 5.37 (4.30-5.90) m/uL Hgb 16.2 (13.0-17.5) gm/dL Hct 46.5 (39.0-53.0) % MCV 86.6 (80.0-100.0) fL MCH 30.2 (25.0-35.0) pg MCHC 34.8 (31.0-37.0) g/dL RDW 12.4 (11.5-15.5) % Plt Count 383 (150-450) k/uL MPV 7.5 Neutrophils % 81 % Lymphocytes % 11 % Monocytes % 6 % Eosinophils % 1 % Basophils % 1 % Neutrophils # 10.5 H (1.3-7.7) k/uL Lymphocytes # 1.5 (1.0-4.8) k/uL Monocytes # 0.8 (0-1.0) k/uL Eosinophils # 0.1 (0-0.7) k/uL Basophils # 0.1 (0-0.2) k/uL Sodium 139 (137-145) mmol/L Potassium 3.7 (3.5-5.1) mmol/L Chloride 97 L (98-107) mmol/L Carbon Dioxide 28 (22-30) mmol/L Anion Gap 14 mmol/L BUN 12 (9-20) mg/dL Creatinine 0.74 (0.66-1.25) mg/dL Est GFR (CKD-EPI)AfAm >90 (>60 ml/min/1.73 sqM) Est GFR (CKD-EPI)NonAf >90 (>60 ml/min/1.73 sqM) Glucose 118 H (74-99) mg/dL Plasma Lactic Acid [place] 1.7 (0.7-2.0) mmol/L Calcium 10.8 H (8.4-10.2) mg/dL Total Bilirubin 1.6 H (0.2-1.3) mg/dL AST 23 (17-59) U/L ALT 31 (4-49) U/L Alkaline Phosphatase 75 (38-126) U/L Total Protein 8.4 H (6.3-8.2) g/dL Albumin 5.3 H (3.5-5.0) g/dL Amylase 57 (30-110) U/L Lipase 128 (23-300) U/L Urine Color Urine Appearance (Clear) Urine pH (5.0-8.0) Ur Specific [place] (1.001-1.035) Urine Protein (Negative) Urine Glucose (UA) (Negative) Urine Ketones (Negative) Urine Blood (Negative) Urine Nitrite (Negative) Urine Bilirubin (Negative) Urine Urobilinogen (<2.0) mg/dL Ur Leukocyte Esterase (Negative) Urine RBC (0-5) /hpf Urine WBC (0-5) /hpf Ur Squamous Epith Cells (0-4) /hpf Hyaline Casts (0-2) /lpf Urine Mucus (None) /hpf 04/04/20 Range/Units 19:57 WBC (3.8-10.6) k/uL RBC (4.30-5.90) m/uL Hgb (13.0-17.5) gm/dL Hct (39.0-53.0) % MCV (80.0-100.0) fL MCH (25.0-35.0) pg MCHC (31.0-37.0) g/dL RDW (11.5-15.5) % Plt Count (150-450) k/uL MPV Neutrophils % % Lymphocytes % % Monocytes % % Eosinophils % % Basophils % % Neutrophils # (1.3-7.7) k/uL Lymphocytes # (1.0-4.8) k/uL Monocytes # (0-1.0) k/uL Eosinophils # (0-0.7) k/uL Basophils # (0-0.2) k/uL Sodium (137-145) mmol/L Potassium (3.5-5.1) mmol/L Chloride (98-107) mmol/L Carbon Dioxide (22-30) mmol/L Anion Gap mmol/L BUN (9-20) mg/dL Creatinine (0.66-1.25) mg/dL Est GFR (CKD-EPI)AfAm (>60 ml/min/1.73 sqM) Est GFR (CKD-EPI)NonAf (>60 ml/min/1.73 sqM) Glucose (74-99) mg/dL Plasma Lactic Acid [place] (0.7-2.0) mmol/L Calcium (8.4-10.2) mg/dL Total Bilirubin (0.2-1.3) mg/dL AST (17-59) U/L ALT (4-49) U/L Alkaline Phosphatase (38-126) U/L Total Protein (6.3-8.2) g/dL Albumin (3.5-5.0) g/dL Amylase (30-110) U/L Lipase (23-300) U/L Urine Color Yellow Urine Appearance Clear (Clear) Urine pH 7.0 (5.0-8.0) Ur Specific [place] 1.034 (1.001-1.035) Urine Protein 1+ H (Negative) Urine Glucose (UA) Negative (Negative) Urine Ketones 4+ H (Negative) Urine Blood Small H (Negative) Urine Nitrite Negative (Negative) Urine Bilirubin Negative (Negative) Urine Urobilinogen <2.0 (<2.0) mg/dL Ur Leukocyte Esterase Negative (Negative) Urine RBC 39 H (0-5) /hpf Urine WBC 3 (0-5) /hpf Ur Squamous Epith Cells <1 (0-4) /hpf Hyaline Casts 1 (0-2) /lpf Urine Mucus Occasional H (None) /hpf Disposition Clinical Impression: Abdominal pain, Vomiting Disposition: HOME SELF-CARE Condition: Good Instructions (If sedation given, give patient instructions): Acute Nausea and Vomiting (ED), Abdominal Pain (ED) Additional Instructions: Start with clear liquid diet and advance as tolerated. Follow-up through primary care physician for recheck in 1-2 days. Return to the emergency d epartment for any new, worsening, or concerning symptoms. Is patient prescribed a controlled substance at d/c from ED?: No Referrals: Sher Lewis MD [Primary Care Provider] - 1-2 days Time of Disposition: 22:01
[2020-04-04 20:08] LABS: Basophils # (A) 0.1 k/uL (0-0.2); Basophils % (A) 1 %; Eosinophils # (A) 0.1 k/uL (0-0.7); Eosinophils % (A) 1 %; HCT 46.5 % (39.0-53.0); HGB 16.2 gm/dL (13.0-17.5); Lymphocytes # (A) 1.5 k/uL (1.0-4.8); Lymphocytes % (A) 11 %; MCH 30.2 pg (25.0-35.0); MCHC 34.8 g/dL (31.0-37.0); MCV 86.6 fL (80.0-100.0); Mean Platelet Volume 7.5; Monocytes # (A) 0.8 k/uL (0-1.0); Monocytes % (A) 6 %; Neutrophils # (A) 10.5 k/uL (1.3-7.7); Neutrophils % (A) 81 %; Platelet Count 383 k/uL (150-450); RBC 5.37 m/uL (4.30-5.90); RDW 12.4 % (11.5-15.5)
[2020-04-04 20:20] LABS: Appearance,Urine Clear (Clear); Bilirubin,Urine Negative (Negative); Blood,Urine Small (Negative); Color,Urine Yellow; Glucose,Urine (UA) Negative (Negative); Hyaline Casts,Urine 1 /lpf (0-2); Ketones,Urine 4+ (Negative); Leukocyte Esterase,Urine Negative (Negative); Mucus,Urine Occasional /hpf; Nitrite,Urine Negative (Negative); Protein,Urine 1+ (Negative); RBC,Urine 39 /hpf (0-5); Specific Gravity,Urine 1.034 (1.001-1.035); Squamous Epithelial Cell,Urine <1 /hpf (0-4); Urobilinogen,Urine <2.0 mg/dL (<2.0); WBC,Urine 3 /hpf (0-5)
[2020-04-04 20:24] LABS: ALT 31 U/L (4-49); AST 23 U/L (17-59); African American GFR (CKD) >90 (>60 ml/min/1.73 sqM); Albumin 5.3 g/dL (3.5-5.0); Alkaline Phosphatase 75 U/L (38-126); Amylase 57 U/L (30-110); Anion Gap 14 mmol/L; Blood Urea Nitrogen 12 mg/dL (9-20); Calcium 10.8 mg/dL (8.4-10.2); Carbon Dioxide 28 mmol/L (22-30); Chloride 97 mmol/L (98-107); Glucose 118 mg/dL (74-99); Lipase 128 U/L (23-300); Non-African American GFR(CKD) >90 (>60 ml/min/1.73 sqM); Potassium 3.7 mmol/L (3.5-5.1); Sodium 139 mmol/L (137-145); Total Bilirubin 1.6 mg/dL (0.2-1.3); Total Protein 8.4 g/dL (6.3-8.2)
[2020-04-04 22:17] VITALS: BP 118/72; PULSE 91; RESP 18
== END 2020-04-04 22:19 | disposition home or self-care (01) ==
LOC: EC 19:07
DX: G89.29 Other chronic pain (principal); R10.10 Upper abdominal pain, unspecified; R11.10 Vomiting, unspecified; D72.829 Elevated white blood cell count, unspecified; K21.9 Gastro-esophageal reflux disease without esophagitis; F41.9 Anxiety disorder, unspecified; Z79.899 Other long term (current) drug therapy; Z87.19 Personal history of other diseases of the digestive system; Z90.49 Acquired absence of other specified parts of digestive tract
CPT/HCPCS: 99284 ×2; 96374 ×2; 96375 ×4; 96376 ×2; 96361 ×2; 36415; 80053; 82150; 83605; 83690; 85025; 81001; J2060; J1200; J2765; J2405; J1170

== ENCOUNTER 2020-05-05 08:31 | Emergency (ER) | payer OTHER ==
[2020-05-05 08:35] VITALS: BP 161/106; PULSE 95; RESP 18; TEMP 98.5
[2020-05-05] MEDS ORDERED: SODIUM CHLORIDE 0.9% 1,000 ML IV STA (08:54)
[2020-05-05] MEDS ORDERED: PANTOPRAZOLE 40 MG/10 ML VIAL IVP STA (08:54)
[2020-05-05] MEDS ORDERED: ONDANSETRON 4 MG/2 ML VIAL IVP STA ×2 (08:54→10:35)
[2020-05-05] MEDS ORDERED: MORPHINE SULFATE 4 MG/ML SYRINGE IV STA (08:54)
--- NOTE | 2020-05-05 08:57 | ED ---
General Adult HPI - General Chief complaint: Abdominal Pain Stated complaint: vomiting/nausea/abd pain Time Seen by Provider: 05/05/20 08:44 Source: patient, RN notes reviewed, old records reviewed Mode of arrival: ambulatory Limitations: no limitations - History of Present Illness Initial comments: 35-year-old male history of cyclic vomiting syndrome chronic abdominal pain presenting with abdominal pain and vomiting. Patient reports generalized and epigastric abdominal pain as well as multiple episodes of vomiting. States this is similar to previous episodes. He has followed with gastroenterology as well as his primary care regarding these ongoing symptoms. No fever. He is currently smoking marijuana. He has been told that this likely contributes to his symptoms by previous medical providers. - Related Data Home Medications Medication Instructions Recorded Confirmed Omeprazole 20 mg PO BID 07/10/18 05/05/20 LORazepam [Ativan] 1 mg PO QID PRN 08/13/18 05/05/20 Amitriptyline HCl [Elavil] 150 mg PO HS 10/08/19 05/05/20 Baclofen [Lioresal] 20 mg PO QID PRN 10/08/19 05/05/20 Hydrocodone/Acetaminophen [[place] 1 tab PO Q6H PRN 01/27/20 05/05/20 10-325] Ondansetron Odt [Zofran Odt] 8 mg PO Q8HR PRN 02/19/20 05/05/20 Ubidecarenone [Co Q-10] 300 mg PO DAILY 05/05/20 05/05/20 Allergies Allergy/AdvReac Type Severity Reaction Status Date / Time No Known Allergies Allergy Verified 05/05/20 11:35 Review of Systems ROS Statement: Those systems with pertinent positive or pertinent negative responses have been documented in the HPI. ROS Other: All systems not noted in ROS Statement are negative. Past Medical History Past Medical History: Asthma, GERD/Reflux Additional Past Medical History / Comment(s): cyclic vomiting syndrome, numbness/tingling bilateral feet when vomiting, low back pain/ruptured discs, occupational asthma, History of Any Multi-Drug Resistant Organisms: None Reported Past Surgical History: Adenoidectomy, Appendectomy, Cholecystectomy, Orthopedic Surgery, Tonsillectomy Additional Past Surgical History / Comment(s): EGD, ORIF bilateral ankles, Past Anesthesia/Blood Transfusion Reactions: No Reported Reaction Past Psychological History: Anxiety Smoking Status: Never smoker Past Alcohol Use History: None Reported Past Drug Use History: Marijuana - Past Family History Father Family Medical History: No Reported History Mother Family Medical History: Diabetes Mellitus Additional Family Medical History / Comment(s): severe food allergies General Exam Limitations: no limitations General appearance: alert, in no apparent distress Head exam: Present: atraumatic, normocephalic Eye exam: Present: normal appearance, PERRL ENT exam: Present: mucous membranes dry Neck exam: Present: normal inspection. Absent: tenderness, meningismus Respiratory exam: Present: normal lung sounds bilaterally. Absent: respiratory distress, wheezes Cardiovascular Exam: Present: regular rate, normal rhythm GI/Abdominal exam: Present: soft, tenderness. Absent: distended, guarding, rebound Extremities exam: Present: normal inspection, normal capillary refill. Absent: pedal edema Neurological exam: Present: alert, oriented X3, CN II-XII intact. Absent: motor sensory deficit Psychiatric exam: Present: normal affect, normal mood Skin exam: Present: warm, dry, intact. Absent: cyanosis, diaphoretic Course Vital Signs 05/05/20 08:32 Temperature 98.5 F Pulse Rate 95 Respiratory 18 Rate Blood Pressure 161/106 O2 Sat by Pulse 98 Oximetry Medical Decision Making - Medical Decision Making 35-year-old male presenting with vomiting, abdominal pain history of cyclic vomiting. Patient has stable vitals, he does have some generalized abdominal tenderness although this is quite minimal. No distention. X-ray performed, showing possible ileus versus enteritis, no obstruction or intraperitoneal free air. He has a mild leukocytosis 11.8. Normal hemoglobin at 15. He has normal electrolytes. Urinalysis negative for infection. Patient has urine drug screen which is positive for opiates, TCA, cocaine and marijuana. I did advise this patient that his symptoms may be related to marijuana and that he should abstain from use of all drugs including marijuana. He should follow- up with gastroenterology. Symptoms are controlled in the emergency department. - Lab Data Result diagrams: 05/05/20 09:39 05/05/20 09:39 Lab Results 05/05/20 05/05/20 05/05/20 Range/Units 09:39 09:39 09:39 WBC 11.8 H (3.8-10.6) k/uL RBC 5.14 (4.30-5.90) m/uL Hgb 15.4 (13.0-17.5) gm/dL Hct 44.6 (39.0-53.0) % MCV 86.8 (80.0-100.0) fL MCH 29.9 (25.0-35.0) pg MCHC 34.4 (31.0-37.0) g/dL RDW 12.4 (11.5-15.5) % Plt Count 332 (150-450) k/uL MPV 7.3 Neutrophils % 86 % Lymphocytes % 10 % Monocytes % 3 % Eosinophils % 1 % Basophils % 0 % Neutrophils # 10.1 H (1.3-7.7) k/uL Lymphocytes # 1.1 (1.0-4.8) k/uL Monocytes # 0.4 (0-1.0) k/uL Eosinophils # 0.1 (0-0.7) k/uL Basophils # 0.0 (0-0.2) k/uL PT 10.1 (9.0-12.0) sec INR 0.9 (<1.2) APTT 23.1 (22.0-30.0) sec Sodium (137-145) mmol/L Potassium (3.5-5.1) mmol/L Chloride (98-107) mmol/L Carbon Dioxide (22-30) mmol/L Anion Gap mmol/L BUN (9-20) mg/dL Creatinine (0.66-1.25) mg/dL Est GFR (CKD-EPI)AfAm (>60 ml/min/1.73 sqM) Est GFR (CKD-EPI)NonAf (>60 ml/min/1.73 sqM) Glucose (74-99) mg/dL Plasma Lactic Acid [place] (0.7-2.0) mmol/L Calcium (8.4-10.2) mg/dL Total Bilirubin (0.2-1.3) mg/dL AST (17-59) U/L ALT (4-49) U/L Alkaline Phosphatase (38-126) U/L Total Protein (6.3-8.2) g/dL Albumin (3.5-5.0) g/dL Amylase (30-110) U/L Lipase (23-300) U/L Urine Color Yellow Urine Appearance Cloudy (Clear) Urine pH 8.0 (5.0-8.0) Ur Specific [place] 1.029 (1.001-1.035) Urine Protein Trace H (Negative) Urine Glucose (UA) Negative (Negative) Urine Ketones Negative (Negative) Urine Blood Negative (Negative) Urine Nitrite Negative (Negative) Urine Bilirubin Negative (Negative) Urine Urobilinogen <2.0 (<2.0) mg/dL Ur Leukocyte Esterase Negative (Negative) Urine RBC 2 (0-5) /hpf Urine WBC 2 (0-5) /hpf Ur Squamous Epith Cells <1 (0-4) /hpf Amorphous Sediment Rare H (None) /hpf Urine Bacteria Rare H (None) /hpf Urine Mucus Few H (None) /hpf Urine Opiates Screen (NotDetected) Ur Oxycodone Screen (NotDetected) Urine Methadone Screen (NotDetected) Ur Propoxyphene Screen (NotDetected) Ur Barbiturates Screen (NotDetected) U Tricyclic Antidepress (NotDetected) Ur Phencyclidine Scrn (NotDetected) Ur Amphetamines Screen (NotDetected) U Methamphetamines Scrn (NotDetected) U Benzodiazepines Scrn (NotDetected) Urine Cocaine Screen (NotDetected) U Marijuana (THC) Screen (NotDetected) 05/05/20 05/05/20 05/05/20 Range/Units 09:39 09:39 09:39 WBC (3.8-10.6) k/uL RBC (4.30-5.90) m/uL Hgb (13.0-17.5) gm/dL Hct (39.0-53.0) % MCV (80.0-100.0) fL MCH (25.0-35.0) pg MCHC (31.0-37.0) g/dL RDW (11.5-15.5) % Plt Count (150-450) k/uL MPV Neutrophils % % Lymphocytes % % Monocytes % % Eosinophils % % Basophils % % Neutrophils # (1.3-7.7) k/uL Lymphocytes # (1.0-4.8) k/uL Monocytes # (0-1.0) k/uL Eosinophils # (0-0.7) k/uL Basophils # (0-0.2) k/uL PT (9.0-12.0) sec INR (<1.2) APTT (22.0-30.0) sec Sodium 141 (137-145) mmol/L Potassium 4.4 (3.5-5.1) mmol/L Chloride 106 (98-107) mmol/L Carbon Dioxide 27 (22-30) mmol/L Anion Gap 8 mmol/L BUN 12 (9-20) mg/dL Creatinine 0.77 (0.66-1.25) mg/dL Est GFR (CKD-EPI)AfAm >90 (>60 ml/min/1.73 sqM) Est GFR (CKD-EPI)NonAf >90 (>60 ml/min/1.73 sqM) Glucose 127 H (74-99) mg/dL Plasma Lactic Acid [place] 1.7 (0.7-2.0) mmol/L Calcium 10.3 H (8.4-10.2) mg/dL Total Bilirubin 0.8 (0.2-1.3) mg/dL AST 28 (17-59) U/L ALT 42 (4-49) U/L Alkaline Phosphatase 76 (38-126) U/L Total Protein 7.7 (6.3-8.2) g/dL Albumin 4.8 (3.5-5.0) g/dL Amylase 48 (30-110) U/L Lipase 68 (23-300) U/L Urine Color Urine Appearance (Clear) Urine pH (5.0-8.0) Ur Specific [place] (1.001-1.035) Urine Protein (Negative) Urine Glucose (UA) (Negative) Urine Ketones (Negative) Urine Blood (Negative) Urine Nitrite (Negative) Urine Bilirubin (Negative) Urine Urobilinogen (<2.0) mg/dL Ur Leukocyte Esterase (Negative) Urine RBC (0-5) /hpf Urine WBC (0-5) /hpf Ur Squamous Epith Cells (0-4) /hpf Amorphous Sediment (None) /hpf Urine Bacteria (None) /hpf Urine Mucus (None) /hpf Urine Opiates Screen Detected H (NotDetected) Ur Oxycodone Screen Detected H (NotDetected) Urine Methadone Screen Not Detected (NotDetected) Ur Propoxyphene Screen Not Detected (NotDetected) Ur Barbiturates Screen Not Detected (NotDetected) U Tricyclic Antidepress Detected H (NotDetected) Ur Phencyclidine Scrn Not Detected (NotDetected) Ur Amphetamines Screen Not Detected (NotDetected) U Methamphetamines Scrn Not Detected (NotDetected) U Benzodiazepines Scrn Detected H (NotDetected) Urine Cocaine Screen Detected H (NotDetected) U Marijuana (THC) Screen Detected H (NotDetected) Disposition Clinical Impression: Nausea and vomiting, Drug-induced nausea and vomiting, Abdominal pain, Cyclic vomiting syndrome Disposition: HOME SELF-CARE Condition: Fair Instructions (If sedation given, give patient instructions): Acute Nausea and Vomiting (ED), Abdominal Pain (ED) Is patient prescribed a controlled substance at d/c from ED?: No Referrals: Sher Lewis MD [Primary Care Provider] - 1-2 days Milla Matthew MD [STAFF PHYSICIAN] - 1-2 days
--- NOTE | 2020-05-05 09:49 | XR ---
EXAMINATION TYPE: XR KUB DATE OF EXAM: 05/05/2020 Comparison: 02/13/2020 Clinical History: 35-year-old male abdominal pain Findings: Lung bases are clear. No evidence for free intraperitoneal air. No dilated small bowel or air-fluid levels. Cholecystectomy clips. Mildly prominent, air-filled small bowel loops in the left midabdomen. Mild stool within the right si de of the colon. No suspicious calcifications seen. Impression: 1. No evidence for free air or bowel obstruction. 2. Some prominent air within a couple small bowel loops in the left mid abdomen could be transient or could represent a mild regional ileus or enteritis.
[2020-05-05 09:58] LABS: Basophils % (A) 0 %; Eosinophils # (A) 0.1 k/uL (0-0.7); Eosinophils % (A) 1 %; HCT 44.6 % (39.0-53.0); HGB 15.4 gm/dL (13.0-17.5); Lymphocytes # (A) 1.1 k/uL (1.0-4.8); Lymphocytes % (A) 10 %; MCH 29.9 pg (25.0-35.0); MCHC 34.4 g/dL (31.0-37.0); MCV 86.8 fL (80.0-100.0); Mean Platelet Volume 7.3; Monocytes # (A) 0.4 k/uL (0-1.0); Monocytes % (A) 3 %; Neutrophils # (A) 10.1 k/uL (1.3-7.7); Neutrophils % (A) 86 %; Platelet Count 332 k/uL (150-450); RBC 5.14 m/uL (4.30-5.90); RDW 12.4 % (11.5-15.5); WBC 11.8 k/uL (3.8-10.6)
[2020-05-05 10:07] LABS: ALT 42 U/L (4-49); AST 28 U/L (17-59); African American GFR (CKD) >90 (>60 ml/min/1.73 sqM); Albumin 4.8 g/dL (3.5-5.0); Alkaline Phosphatase 76 U/L (38-126); Amylase 48 U/L (30-110); Anion Gap 8 mmol/L; Blood Urea Nitrogen 12 mg/dL (9-20); Calcium 10.3 mg/dL (8.4-10.2); Carbon Dioxide 27 mmol/L (22-30); Chloride 106 mmol/L (98-107); Glucose 127 mg/dL (74-99); Lipase 68 U/L (23-300); Non-African American GFR(CKD) >90 (>60 ml/min/1.73 sqM); Potassium 4.4 mmol/L (3.5-5.1); Sodium 141 mmol/L (137-145); Total Bilirubin 0.8 mg/dL (0.2-1.3); Total Protein 7.7 g/dL (6.3-8.2)
[2020-05-05 10:23] LABS: Amorphous Sediment,Urine Rare /hpf; Appearance,Urine Cloudy (Clear); Bacteria,Urine Rare /hpf; Bilirubin,Urine Negative (Negative); Blood,Urine Negative (Negative); Color,Urine Yellow; Glucose,Urine (UA) Negative (Negative); Ketones,Urine Negative (Negative); Leukocyte Esterase,Urine Negative (Negative); Mucus,Urine Few /hpf; Nitrite,Urine Negative (Negative); Protein,Urine Trace (Negative); RBC,Urine 2 /hpf (0-5); Specific Gravity,Urine 1.029 (1.001-1.035); Squamous Epithelial Cell,Urine <1 /hpf (0-4); Urobilinogen,Urine <2.0 mg/dL (<2.0); WBC,Urine 2 /hpf (0-5)
[2020-05-05 10:25] LABS: INR 0.9 (<1.2); Partial Thromboplastin Time 23.1 sec (22.0-30.0); Prothrombin Time 10.1 sec (9.0-12.0)
[2020-05-05 10:27] LABS: Cocaine Screen,Urine Detected (NotDetected); Phencyclidine Screen,Urine Not Detected (NotDetected); Urn Cannabinoid Scrn Detected (NotDetected)
[2020-05-05 10:28] LABS: Amphetamine Screen,Urine Not Detected (NotDetected); Barbiturate Screen,Urine Not Detected (NotDetected); Benzodiazepines Screen,Urine Detected (NotDetected); Methadone Screen, Urine Not Detected (NotDetected); Opiate Screen,Urine Detected (NotDetected); Oxycodone Screen, Urine Detected (NotDetected); Tricyclic Antidepressant,Urine Detected (NotDetected)
[2020-05-05] MEDS ORDERED: HYDROmorphone 1 MG/ML 1 ML SYRINGE IVP STA (10:35)
== END 2020-05-05 11:46 | disposition home or self-care (01) ==
LOC: EC 08:31
DX: R11.15 Cyclical vomiting syndrome unrelated to migraine (principal); T50.905A Adverse effect of unspecified drugs, medicaments and biological substances, initial encounter; D72.829 Elevated white blood cell count, unspecified; R10.9 Unspecified abdominal pain; R10.817 Generalized abdominal tenderness; K21.9 Gastro-esophageal reflux disease without esophagitis; F41.9 Anxiety disorder, unspecified; Z79.899 Other long term (current) drug therapy; Z90.89 Acquired absence of other organs; Z90.49 Acquired absence of other specified parts of digestive tract
CPT/HCPCS: 36415; 80053; 82150; 83605; 83690; 85025; 85610; 85730; 81001; 80306; 74018; 99284; 96374; 96375 ×3; 96376; 96361; J2270; J2405; J1170; C9113

== ENCOUNTER 2020-05-16 20:44 | Emergency (ER) | payer OTHER ==
--- NOTE | 2020-05-16 23:50 | XR ---
EXAMINATION TYPE: XR KUB DATE OF EXAM: 05/16/2020 COMPARISON: 05/05/2020 HISTORY: Abdominal pain TECHNIQUE: 2 views upright FINDINGS: There is no sign of intestinal obstruction or pneumoperitoneum. Fecal pattern is normal. Th ere are clips from cholecystectomy. There is no evidence of a mass. Lung bases are clear. There are n o pathologic calcifications over the kidneys. IMPRESSION: Nonacute abdomen. No adverse change.
[2020-05-17] MEDS ORDERED: HYDROmorphone 0.5 MG/0.5 ML SYRINGE IVP STA (00:02)
[2020-05-17] MEDS ORDERED: SODIUM CHLORIDE 0.9% 1,000 ML IV ONE ×2 (00:02→03:44)
[2020-05-17] MEDS ORDERED: METOCLOPRAMIDE 5 MG/ML 2 ML VIAL IVP STA ×2 (00:02→02:18)
--- NOTE | 2020-05-17 00:04 | ED ---
Abdominal Pain HPI - General Source: patient Mode of arrival: wheelchair Limitations: no limitations - History of Present Illness MD Complaint: abdominal pain Onset/Timin -: hour(s) Location: diffuse Radiation: none Severity: severe Quality: cramping Consistency: constant Improves With: nothing Worsens With: nothing Associated Symptoms: nausea, vomiting <Crispin Bradley - Last Filed: 05/17/20 00:02> <Yanely Trevino - Last Filed: 05/17/20 05:40> - General Chief Complaint: Abdominal Pain Stated Complaint: Sevre stomach pain, vommiting Time Seen by Provider: 05/16/20 23:16 - Related Data Home Medications Medication Instructions Recorded Confirmed Omeprazole 20 mg PO BID 07/10/18 05/16/20 LORazepam [Ativan] 1 mg PO QID PRN 08/13/18 05/16/20 Amitriptyline HCl [Elavil] 150 mg PO HS 10/08/19 05/16/20 Baclofen [Lioresal] 20 mg PO QID PRN 10/08/19 05/16/20 Hydrocodone/Acetaminophen [[place] 1 tab PO TID PRN 01/27/20 05/16/20 10-325] Ondansetron Odt [Zofran Odt] 8 mg PO Q8H PRN 02/19/20 05/16/20 Ubidecarenone [Co Q-10] 300 mg PO DAILY 05/05/20 05/16/20 Allergies Allergy/AdvReac Type Severity Reaction Status Date / Time No Known Allergies Allergy Verified 05/16/20 23:51 Review of Systems ROS Other: All systems not noted in ROS Statement are negative. Constitutional: Denies: fever, chills Respiratory: Denies: cough, dyspnea Cardiovascular: Denies: chest pain, palpitations, edema Gastrointestinal: Reports: abdominal pain, nausea, vomiting. Denies: diarrhea, constipation, hematemesis Genitourinary: Denies: dysuria, frequency, hematuria, testicular pain, testicular mass Musculoskeletal: Denies: back pain Skin: Denies: rash Neurological: Denies: headache, weakness, numbness <Crispin Bradley - Last Filed: 05/17/20 00:02> ROS Other: All systems not noted in ROS Statement are negative. <Yanely Trevino - Last Filed: 05/17/20 05:40> ROS Statement: Those systems with pertinent positive or pertinent negative responses have been documented in the HPI. Past Medical History Past Medical History: Asthma, GERD/Reflux Additional Past Medical History / Comment(s): cyclic vomiting syndrome, numbness/tingling bilateral feet when vomiting, low back pain/ruptured discs, occupational asthma, History of Any Multi-Drug Resistant Organisms: None Reported Past Surgical History: Adenoidectomy, Appendectomy, Cholecystectomy, Orthopedic Surgery, Tonsillectomy Additional Past Surgical History / Comment(s): EGD, ORIF bilateral ankles, Past Anesthesia/Blood Transfusion Reactions: No Reported Reaction Past Psychological History: Anxiety Smoking Status: Never smoker Past Alcohol Use History: None Reported Past Drug Use History: Marijuana - Past Family History Father Family Medical History: No Reported History Mother Family Medical History: Diabetes Mellitus Additional Family Medical History / Comment(s): severe food allergies <Crispin Bradley - Last Filed: 05/17/20 00:02> General Exam Limitations: no limitations General appearance: alert, in no apparent distress Head exam: Present: atraumatic, normocephalic Eye exam: Present: normal appearance. Absent: scleral icterus, conjunctival injection ENT exam: Present: mucous membranes dry Neck exam: Present: normal inspection Respiratory exam: Present: normal lung sounds bilaterally. Absent: respiratory distress, wheezes, rales, rhonchi, stridor Cardiovascular Exam: Present: regular rate, normal rhythm, normal heart sounds. Absent: systolic murmur, diastolic murmur, rubs, gallop GI/Abdominal exam: Present: soft, hyperactive bowel sounds. Absent: distended, tenderness, guarding, rebound, rigid, mass Extremities exam: Present: normal inspection, normal capillary refill. Absent: pedal edema, calf tenderness Back exam: Present: normal inspection. Absent: CVA tenderness (R), CVA tenderness (L) Neurological exam: Present: alert Skin exam: Present: warm, dry, intact, normal color. Absent: rash <Crispin Bradley - Last Filed: 05/17/20 00:02> Course Vital Signs 05/16/20 22:09 Temperature 98.2 F Pulse Rate 107 H Respiratory 22 Rate Blood Pressure 153/99 O2 Sat by Pulse 98 Oximetry Medical Decision Making - Lab Data Result diagrams: 05/17/20 00:08 05/17/20 00:08 <Yanely Trevino M - Last Filed: 05/17/20 05:40> - Lab Data Lab Results 05/17/20 05/17/20 Range/Units 00:08 00:08 WBC 8.6 (3.8-10.6) k/uL RBC 5.82 (4.30-5.90) m/uL Hgb 17.0 (13.0-17.5) gm/dL Hct 50.4 (39.0-53.0) % MCV 86.7 (80.0-100.0) fL MCH 29.2 (25.0-35.0) pg MCHC 33.6 (31.0-37.0) g/dL RDW 12.8 (11.5-15.5) % Plt Count 243 (150-450) k/uL MPV 8.2 Neutrophils % 84 % Lymphocytes % 8 % Monocytes % 6 % Eosinophils % 0 % Basophils % 1 % Neutrophils # 7.2 (1.3-7.7) k/uL Lymphocytes # 0.7 L (1.0-4.8) k/uL Monocytes # 0.5 (0-1.0) k/uL Eosinophils # 0.0 (0-0.7) k/uL Basophils # 0.0 (0-0.2) k/uL Sodium 141 (137-145) mmol/L Potassium 4.2 (3.5-5.1) mmol/L Chloride 99 (98-107) mmol/L Carbon Dioxide 26 (22-30) mmol/L Anion Gap 16 mmol/L BUN 17 (9-20) mg/dL Creatinine 0.99 (0.66-1.25) mg/dL Est GFR (CKD-EPI)AfAm >90 (>60 ml/min/1.73 sqM) Est GFR (CKD-EPI)NonAf >90 (>60 ml/min/1.73 sqM) Glucose 139 H (74-99) mg/dL Calcium 10.7 H (8.4-10.2) mg/dL Total Bilirubin 0.7 (0.2-1.3) mg/dL AST 33 (17-59) U/L ALT 35 (4-49) U/L Alkaline Phosphatase 99 (38-126) U/L Total Protein 8.9 H (6.3-8.2) g/dL Albumin 5.4 H (3.5-5.0) g/dL Amylase 64 (30-110) U/L Lipase 104 (23-300) U/L Disposition <Crispin Bradley - Last Filed: 05/17/20 00:02> Is patient prescribed a controlled substance at d/c from ED?: No Time of Disposition: 05:40 <Yanely Trevino - Last Filed: 05/17/20 05:40> Clinical Impression: Cyclic vomiting syndrome Disposition: HOME SELF-CARE Condition: Good Instructions (If sedation given, give patient instructions): Acute Nausea and Vomiting (ED), Abdominal Pain (ED) Additional Instructions: Start with clear liquid diet and advance as tolerated. Return to the emergency department for any new, worsening, or concerning symptoms. Referrals: Sher Lewis MD [Primary Care Provider] - 1-2 days
[2020-05-17 00:12] LABS: Basophils % (A) 1 %; Eosinophils % (A) 0 %; HCT 50.4 % (39.0-53.0); Lymphocytes # (A) 0.7 k/uL (1.0-4.8); Lymphocytes % (A) 8 %; MCH 29.2 pg (25.0-35.0); MCHC 33.6 g/dL (31.0-37.0); MCV 86.7 fL (80.0-100.0); Mean Platelet Volume 8.2; Monocytes # (A) 0.5 k/uL (0-1.0); Monocytes % (A) 6 %; Neutrophils # (A) 7.2 k/uL (1.3-7.7); Neutrophils % (A) 84 %; Platelet Count 243 k/uL (150-450); RBC 5.82 m/uL (4.30-5.90); RDW 12.8 % (11.5-15.5); WBC 8.6 k/uL (3.8-10.6)
[2020-05-17 00:34] LABS: ALT 35 U/L (4-49); AST 33 U/L (17-59); African American GFR (CKD) >90 (>60 ml/min/1.73 sqM); Albumin 5.4 g/dL (3.5-5.0); Alkaline Phosphatase 99 U/L (38-126); Amylase 64 U/L (30-110); Anion Gap 16 mmol/L; Blood Urea Nitrogen 17 mg/dL (9-20); Calcium 10.7 mg/dL (8.4-10.2); Carbon Dioxide 26 mmol/L (22-30); Chloride 99 mmol/L (98-107); Glucose 139 mg/dL (74-99); Lipase 104 U/L (23-300); Non-African American GFR(CKD) >90 (>60 ml/min/1.73 sqM); Potassium 4.2 mmol/L (3.5-5.1); Sodium 141 mmol/L (137-145); Total Bilirubin 0.7 mg/dL (0.2-1.3); Total Protein 8.9 g/dL (6.3-8.2)
[2020-05-17] MEDS ORDERED: HYDROmorphone 1 MG/ML 1 ML SYRINGE IVP STA ×2 (02:18→03:44)
[2020-05-17] MEDS ORDERED: ONDANSETRON 4 MG/2 ML VIAL IVP STA (03:44)
[2020-05-17] MEDS ORDERED: diphenhydrAMINE 50 MG/ML 1 ML VIAL IVP STA (03:44)
[2020-05-17] MEDS ORDERED: FAMOTIDINE 20 MG/2 ML VIAL IV STA (03:44)
[2020-05-17 05:49] VITALS: BP 119/81; PULSE 84; RESP 18; TEMP 97.8
== END 2020-05-17 05:49 | disposition home or self-care (01) ==
LOC: EC 20:44
DX: R11.15 Cyclical vomiting syndrome unrelated to migraine (principal); J45.909 Unspecified asthma, uncomplicated; K21.9 Gastro-esophageal reflux disease without esophagitis; F41.9 Anxiety disorder, unspecified; F12.90 Cannabis use, unspecified, uncomplicated
CPT/HCPCS: 99284; 96374; 96375; 96376; 80053; 82150; 83690; 85025; 74018; J1200; J2765; J2405; J1170 ×2

== ENCOUNTER 2020-06-02 08:24 | Emergency (ER) | payer OTHER ==
[2020-06-02 08:28] VITALS: RESP 18; TEMP 98.1
[2020-06-02] MEDS ORDERED: SODIUM CHLORIDE 0.9% 1,000 ML IV STA (08:30)
[2020-06-02] MEDS ORDERED: MORPHINE SULFATE 4 MG/ML SYRINGE IVP STA ×2 (08:35→09:26)
[2020-06-02] MEDS ORDERED: ONDANSETRON 4 MG/2 ML VIAL IVP STA ×2 (08:35→09:57)
--- NOTE | 2020-06-02 08:37 | ED ---
Abdominal Pain HPI - General Chief Complaint: Abdominal Pain Stated Complaint: abd pain Time Seen by Provider: 06/02/20 08:30 Source: patient, RN notes reviewed Mode of arrival: ambulatory Limitations: no limitations - History of Present Illness Initial Comments: Patient is a 35-year-old male presents to emergency department with right upper quadrant abdominal pain with nausea and one bout of vomiting. He notes that all the pain started prostate 5:30 this morning and has progressively gotten worse. He noted that he did try to take some [place] Pepcid and another medication at home but thinks overall up. He did note he has a history of cholecystectomy and appendectomy. He notes that the last thing he ate was chicken breast for dinner last night. He states this is the first incident of this type. He stated that he was 10 out of 10 constant and worsening. He was in moderate distress and pain while sitting up in bed during exam and interview. He denied any chest pain shortness of breath headache diarrhea constipation fever fatigue chills hematochezia melena or hematemesis. - Related Data Home Medications Medication Instructions Recorded Confirmed Omeprazole 20 mg PO BID 07/10/18 05/16/20 LORazepam [Ativan] 1 mg PO QID PRN 08/13/18 05/16/20 Amitriptyline HCl [Elavil] 150 mg PO HS 10/08/19 05/16/20 Baclofen [Lioresal] 20 mg PO QID PRN 10/08/19 05/16/20 Hydrocodone/Acetaminophen [[place] 1 tab PO TID PRN 01/27/20 05/16/20 10-325] Ondansetron Odt [Zofran Odt] 8 mg PO Q8H PRN 02/19/20 05/16/20 Ubidecarenone [Co Q-10] 300 mg PO DAILY 05/05/20 05/16/20 Allergies Allergy/AdvReac Type Severity Reaction Status Date / Time No Known Allergies Allergy Verified 06/02/20 08:29 Review of Systems ROS Statement: Those systems with pertinent positive or pertinent negative responses have been documented in the HPI. ROS Other: All systems not noted in ROS Statement are negative. Past Medical History Past Medical History: Asthma, GERD/Reflux Additional Past Medical History / Comment(s): cyclic vomiting syndrome, numbne ss/tingling bilateral feet when vomiting, low back pain/ruptured discs, occupational asthma, History of Any Multi-Drug Resistant Organisms: None Reported Past Surgical History: Adenoidectomy, Appendectomy, Cholecystectomy, Orthopedic Surgery, Tonsillectomy Additional Past Surgical History / Comment(s): EGD, ORIF bilateral ankles, Past Anesthesia/Blood Transfusion Reactions: No Reported Reaction Past Psychological History: Anxiety Smoking Status: Never smoker Past Alcohol Use History: None Reported Past Drug Use History: Marijuana - Past Family History Father Family Medical History: No Reported History Mother Family Medical History: Diabetes Mellitus Additional Family Medical History / Comment(s): severe food allergies General Exam Limitations: no limitations General appearance: alert, in distress Head exam: Present: atraumatic, normocephalic, normal inspection Eye exam: Present: normal appearance, PERRL, EOMI. Absent: scleral icterus, conjunctival injection, periorbital swelling Neck exam: Present: normal inspection. Absent: tenderness, meningismus, lymphadenopathy Respiratory exam: Present: normal lung sounds bilaterally. Absent: respiratory distress, wheezes, rales, rhonchi, stridor Cardiovascular Exam: Present: regular rate, normal rhythm, normal heart sounds. Absent: systolic murmur, diastolic murmur, rubs, gallop, clicks GI/Abdominal exam: Present: soft, tenderness (Upper quadrant), normal bowel sounds. Absent: distended, guarding, rebound, rigid Extremities exam: Present: normal inspection, full ROM, normal capillary refill. Absent: tenderness, pedal edema, joint swelling, calf tenderness Neurological exam: Present: alert, oriented X3, CN II-XII intact Psychiatric exam: Present: normal affect, normal mood Skin exam: Present: warm, dry, intact, normal color. Absent: rash Course Vital Signs 06/02/20 08:25 Temperature 98.1 F Pulse Rate 91 Respiratory 18 Rate Blood Pressure 150/93 O2 Sat by Pulse 99 Oximetry Medical Decision Making - Medical Decision Making 35-year-old male complaining of abdominal pain in the right upper quadrant with nausea and one bout of vomiting. Labs, CT of the abdomen and pelvis, KUB, 4 mg morphine, 4 mg of Zofran ordered. Labs: Leukocytosis elevated white count of 17.5, rest of labs unremarkable, urinalysis negative for infection. Patient does report smoking marijuana regularly. He was told this can contribute to his symptoms. Imaging shows no acute process. Patient still in pain and nauseous, 1 mg of Dilaudid, 50 g Benadryl, 4 mg of Zofran ordered. Patient states that this combination worked well last time. - Lab Data Result diagrams: 06/02/20 08:54 06/02/20 08:54 Lab Results 06/02/20 06/02/20 06/02/20 Range/Units 08:54 08:54 08:57 WBC 17.5 H (3.8-10.6) k/uL RBC 5.02 (4.30-5.90) m/uL Hgb 14.9 (13.0-17.5) gm/dL Hct 43.2 (39.0-53.0) % MCV 86.2 (80.0-100.0) fL MCH 29.7 (25.0-35.0) pg MCHC 34.4 (31.0-37.0) g/dL RDW 12.6 (11.5-15.5) % Plt Count 476 H (150-450) k/uL MPV 7.2 Neutrophils % 88 % Lymphocytes % 8 % Monocytes % 3 % Eosinophils % 1 % Basophils % 0 % Neutrophils # 15.4 H (1.3-7.7) k/uL Lymphocytes # 1.4 (1.0-4.8) k/uL Monocytes # 0.5 (0-1.0) k/uL Eosinophils # 0.1 (0-0.7) k/uL Basophils # 0.0 (0-0.2) k/uL Sodium 143 (137-145) mmol/L Potassium 4.5 (3.5-5.1) mmol/L Chloride 106 (98-107) mmol/L Carbon Dioxide 25 (22-30) mmol/L Anion Gap 12 mmol/L BUN 14 (9-20) mg/dL Creatinine 0.78 (0.66-1.25) mg/dL Est GFR (CKD-EPI)AfAm >90 (>60 ml/min/1.73 sqM) Est GFR (CKD-EPI)NonAf >90 (>60 ml/min/1.73 sqM) Glucose 119 H (74-99) mg/dL Calcium 10.6 H (8.4-10.2) mg/dL Total Bilirubin 0.9 (0.2-1.3) mg/dL AST 27 (17-59) U/L ALT 39 (4-49) U/L Alkaline Phosphatase 73 (38-126) U/L Total Protein 8.0 (6.3-8.2) g/dL Albumin 5.0 (3.5-5.0) g/dL Amylase 81 (30-110) U/L Lipase 110 (23-300) U/L Urine Color Yellow Urine Appearance Clear (Clear) Urine pH 7.5 (5.0-8.0) Ur Specific [place] 1.026 (1.001-1.035) Urine Protein Trace H (Negative) Urine Glucose (UA) Negative (Negative) Urine Ketones Negative (Negative) Urine Blood Negative (Negative) Urine Nitrite Negative (Negative) Urine Bilirubin Negative (Negative) Urine Urobilinogen <2.0 (<2.0) mg/dL Ur Leukocyte Esterase Negative (Negative) - Radiology Data Radiology results: report reviewed, image reviewed KUB: Overall nonspecific but strongly favor nonobstructive bowel gas pattern. CT of the abdomen and pelvis: No acute process appreciated to come for the patient's symptoms. Disposition Clinical Impression: Leukocytosis, Cyclic vomiting syndrome, Drug-induced nausea and vomiting, Abdominal pain, Drug-seeking behavior Disposition: HOME SELF-CARE Condition: Stable Instructions (If sedation given, give patient instructions): Abdominal Pain (ED) Additional Instructions: Please return to the Emergency Department if symptoms worsen or any other concerns. 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 Smoking cessation. Greatly improve symptoms as marijuana can cause severe abdominal pain with nausea and vomiting. Case discussed with Dr. Olivarez, patient can discharge home. Is patient prescribed a controlled substance at d/c from ED?: No Referrals: Mary Dougherty MD [Primary Care Provider] - 1-2 days Time of Disposition: 10:28
[2020-06-02 09:14] LABS: Basophils % (A) 0 %; Eosinophils # (A) 0.1 k/uL (0-0.7); Eosinophils % (A) 1 %; HCT 43.2 % (39.0-53.0); HGB 14.9 gm/dL (13.0-17.5); Lymphocytes # (A) 1.4 k/uL (1.0-4.8); Lymphocytes % (A) 8 %; MCH 29.7 pg (25.0-35.0); MCHC 34.4 g/dL (31.0-37.0); MCV 86.2 fL (80.0-100.0); Mean Platelet Volume 7.2; Monocytes # (A) 0.5 k/uL (0-1.0); Monocytes % (A) 3 %; Neutrophils # (A) 15.4 k/uL (1.3-7.7); Neutrophils % (A) 88 %; Platelet Count 476 k/uL (150-450); RBC 5.02 m/uL (4.30-5.90); RDW 12.6 % (11.5-15.5); WBC 17.5 k/uL (3.8-10.6)
[2020-06-02 09:18] LABS: Appearance,Urine Clear (Clear); Bilirubin,Urine Negative (Negative); Blood,Urine Negative (Negative); Color,Urine Yellow; Glucose,Urine (UA) Negative (Negative); Ketones,Urine Negative (Negative); Leukocyte Esterase,Urine Negative (Negative); Nitrite,Urine Negative (Negative); PH, Urine 7.5 (5.0-8.0); Protein,Urine Trace (Negative); Specific Gravity,Urine 1.026 (1.001-1.035); Urobilinogen,Urine <2.0 mg/dL (<2.0)
[2020-06-02 09:28] LABS: ALT 39 U/L (4-49); AST 27 U/L (17-59); African American GFR (CKD) >90 (>60 ml/min/1.73 sqM); Alkaline Phosphatase 73 U/L (38-126); Amylase 81 U/L (30-110); Anion Gap 12 mmol/L; Blood Urea Nitrogen 14 mg/dL (9-20); Calcium 10.6 mg/dL (8.4-10.2); Carbon Dioxide 25 mmol/L (22-30); Chloride 106 mmol/L (98-107); Glucose 119 mg/dL (74-99); Lipase 110 U/L (23-300); Non-African American GFR(CKD) >90 (>60 ml/min/1.73 sqM); Potassium 4.5 mmol/L (3.5-5.1); Sodium 143 mmol/L (137-145); Total Bilirubin 0.9 mg/dL (0.2-1.3)
--- NOTE | 2020-06-02 09:40 | XR ---
EXAMINATION TYPE: XR KUB DATE OF EXAM: 06/02/2020 9:26 AM CLINICAL HISTORY: Upper abdominal pain x4 hours. TECHNIQUE: Two supine KUB images of the abdomen are obtained. COMPARISON: Abdominal KUB xray May 16, 2020. FINDINGS: Some paucity of bowel gas. Visualized gas seen in nondistended small and large bowel loops. Cholecystectomy clips redemonstrated. Lung bases are clear. Left-sided pelvic phleboliths redemonstr ated. Visualized osseous structures are intact. IMPRESSION: Overall nonspecific but strongly favor nonobstructive bowel gas pattern.
--- NOTE | 2020-06-02 09:50 | CT ---
EXAMINATION TYPE: CT abdomen pelvis w con DATE OF EXAM: 06/02/2020 COMPARISON: 07/10/2018 HISTORY: Right Upper Quadrant Pain CT DLP: 1533.7 mGycm CONTRAST: CT scan of the abdomen and pelvis is performed without Oral Contrast and with IV Contrast, patient in jected with 100 ml mL of Isovue 300. FINDINGS: LUNG BASES-: No visible nodule. No infiltrate. LIVER/GB: The gallbladder is surgically absent. There is mild hepatic steatosis. No space occupying h epatic lesion. Biliary tree is of normal caliber. PANCREAS: No inflammation. No distinct mass. SPLEEN: No splenic enlargement. Splenic cystic lesion is redemonstrated near the hilum measuring 1.2 cm. ADRENALS: No nodule. No thickening. KIDNEYS/BLADDER: No hydronephrosis. No nephrolithiasis. No distinct renal mass. Urinary bladder g rossly unremarkable. BOWEL: Appendectomy changes noted. Normal bowel caliber. No inflammation. GENITAL ORGANS: No gross abnormality. LYMPH NODES: No greater than 1cm abdominal or pelvic lymph nodes are appreciated. AORTA: No significant abnormality. OSSEOUS STRUCTURES: No significant abnormality is seen. OTHER: No significant additional abnormality is seen. IMPRESSION: 1. No acute process appreciated to account for the patient's symptoms.
[2020-06-02] MEDS ORDERED: HYDROmorphone 1 MG/ML 1 ML SYRINGE IVP STA (09:57)
[2020-06-02] MEDS ORDERED: diphenhydrAMINE 50 MG/ML 1 ML VIAL IVP STA (09:57)
[2020-06-02] MEDS ORDERED: PANTOPRAZOLE 40 MG/10 ML VIAL IVP STA (09:57)
[2020-06-02 11:21] VITALS: BP 139/90; PULSE 99
== END 2020-06-02 11:21 | disposition home or self-care (01) ==
LOC: EC 08:24
DX: D72.829 Elevated white blood cell count, unspecified (principal); R11.15 Cyclical vomiting syndrome unrelated to migraine; R10.9 Unspecified abdominal pain; J45.909 Unspecified asthma, uncomplicated; K21.9 Gastro-esophageal reflux disease without esophagitis; Z90.49 Acquired absence of other specified parts of digestive tract; Z90.09 Acquired absence of other part of head and neck; F12.90 Cannabis use, unspecified, uncomplicated; Z76.5 Malingerer [conscious simulation]
CPT/HCPCS: 36415; 80053; 82150; 83690; 85025; 81003; 74018; 74177; 99284; 96374; 96375 ×4; 96376 ×2; 96361; J2270; J1200; J2405; J1170; C9113; Q9967

== ENCOUNTER 2020-06-15 16:54 | Emergency (ER) | payer OTHER ==
[2020-06-15 17:04] VITALS: TEMP 98.2
[2020-06-15] MEDS ORDERED: METOCLOPRAMIDE 5 MG/ML 2 ML VIAL IVP STA (18:09)
[2020-06-15] MEDS ORDERED: SODIUM CHLORIDE 0.9% 1,000 ML IV STA (18:09)
[2020-06-15] MEDS ORDERED: diphenhydrAMINE 50 MG/ML 1 ML VIAL IVP STA (18:09)
[2020-06-15] MEDS ORDERED: KETOROLAC 15 MG/ML 1 ML VIAL IVP STA (18:10)
--- NOTE | 2020-06-15 18:13 | ED ---
Nausea/Vomiting/Diarrhea HPI - General Chief complaint: Nausea/Vomiting/Diarrhea Stated complaint: Abd Pain, Vomiting Time Seen by Provider: 06/15/20 17:54 Source: patient, RN notes reviewed Mode of arrival: ambulatory Limitations: no limitations - History of Present Illness Initial comments: Patient is a 35-year-old male that presents to the emergency room complaining of nausea vomiting abdominal pain for the last day. He notes that he did follow up with his primary care since her last visit was told to stick to his regimen of regularly prescribed medications. He notes that he did smoke a good amount of marijuana last night. He does note that he usually smokes marijuana a causes him to get abdominal pain and come emergency room. He was told last time in the emergency room that he should try to quit smoking as it can cause severe abdominal pain and nausea vomiting. He notes that he has not been able to follow up with a GI specialist as he was instructed on last visit. Patient states that he is in excruciating pain while sitting up in bed during exam and interview. Saying that he cannot take anymore and is eating his mind. Patient is a frequent flier to this emergency department regularly seeking medications for pain, but does not follow-up with proper specialists as instructed. Patient denied any chest pain shortness of breath headache diarrhea constipation fever fatigue chills. - Related Data Home Medications Medication Instructions Recorded Confirmed Omeprazole 20 mg PO BID 07/10/18 05/16/20 LORazepam [Ativan] 1 mg PO QID PRN 08/13/18 05/16/20 Amitriptyline HCl [Elavil] 150 mg PO HS 10/08/19 05/16/20 Baclofen [Lioresal] 20 mg PO QID PRN 10/08/19 05/16/20 Hydrocodone/Acetaminophen [[place] 1 tab PO TID PRN 01/27/20 05/16/20 10-325] Ondansetron Odt [Zofran Odt] 8 mg PO Q8H PRN 02/19/20 05/16/20 Ubidecarenone [Co Q-10] 300 mg PO DAILY 05/05/20 05/16/20 Allergies Allergy/AdvReac Type Severity Reaction Status Date / Time No Known Allergies Allergy Verified 06/15/20 17:00 Review of Systems ROS Statement: Those systems with pertinent positive or pertinent negative responses have been documented in the HPI. ROS Other: All systems not noted in ROS Statement are negative. Past Medical History Past Medical History: Asthma, GERD/Reflux Additional Past Medical History / Comment(s): cyclic vomiting syndrome, numbness/tingling bilateral feet when vomiting, low back pain/ruptured discs, occupational asthma, History of Any Multi-Drug Resistant Organisms: None Reported Past Surgical History: Adenoidectomy, Appendectomy, Cholecystectomy, Orthopedic Surgery, Tonsillectomy Additional Past Surgical History / Comment(s): EGD, ORIF bilateral ankles, Past Anesthesia/Blood Transfusion Reactions: No Reported Reaction Past Psychological History: Anxiety Smoking Status: Never smoker Past Alcohol Use History: None Reported Past Drug Use History: Marijuana - Past Family History Father Family Medical History: No Reported History Mother Family Medical History: Diabetes Mellitus Additional Family Medical History / Comment(s): severe food allergies General Exam Limitations: no limitations General appearance: alert, in no apparent distress Head exam: Present: atraumatic, normocephalic, normal inspection Eye exam: Present: normal appearance, PERRL, EOMI. Absent: scleral icterus, conjunctival injection, periorbital swelling Neck exam: Present: normal inspection Respiratory exam: Present: normal lung sounds bilaterally. Absent: respiratory distress, wheezes, rales, rhonchi, stridor Cardiovascular Exam: Present: regular rate, normal rhythm, normal heart sounds. Absent: systolic murmur, diastolic murmur, rubs, gallop, clicks GI/Abdominal exam: Present: soft, tenderness (Generalized on the right side. Reaction to palpation over exaggerated from pressure of palpation.), normal bowel sounds. Absent: distended, guarding, rebound, rigid Extremities exam: Present: normal inspection, full ROM, normal capillary refill. Absent: tenderness, pedal edema, joint swelling, calf tenderness Neurological exam: Present: alert, oriented X3, CN II-XII intact Psychiatric exam: Present: normal affect, normal mood Skin exam: Present: warm, dry, intact, normal color. Absent: rash Course Vital Signs 06/15/20 17:00 Temperature 98.2 F Pulse Rate 108 H Respiratory 22 Rate Blood Pressure 111/64 O2 Sat by Pulse 96 Oximetry Medical Decision Making - Medical Decision Making 35-year-old male complaining of nausea vomiting times one. Labs, 1 L normal saline, 50 mg of Benadryl, 15 mg of Toradol, 10 mg of Reglan, KUB ordered. Labs: White blood cells 19.5, rest unremarkable. Elevated white count most likely due to stress-induced vomiting and nausea secondary to drug use. Patient is declining recommended imaging at this time. He recently did have a computed tomography scan on June 02 that showed no acute process given patient's symptoms. Case discussed with Dr. Florian, patient can discharge home with follow-up to primary and GI specialist. - Lab Data Result diagrams: 06/15/20 18:19 06/15/20 18:19 Lab Results 06/15/20 06/15/20 Range/Units 18:19 18:19 WBC 19.3 H (3.8-10.6) k/uL RBC 5.35 (4.30-5.90) m/uL Hgb 16.0 (13.0-17.5) gm/dL Hct 46.1 (39.0-53.0) % MCV 86.3 (80.0-100.0) fL MCH 30.0 (25.0-35.0) pg MCHC 34.8 (31.0-37.0) g/dL RDW 13.1 (11.5-15.5) % Plt Count 345 (150-450) k/uL MPV 6.8 Neutrophils % 84 % Lymphocytes % 10 % Monocytes % 4 % Eosinophils % 2 % Basophils % 0 % Neutrophils # 16.2 H (1.3-7.7) k/uL Lymphocytes # 1.9 (1.0-4.8) k/uL Monocytes # 0.8 (0-1.0) k/uL Eosinophils # 0.3 (0-0.7) k/uL Basophils # 0.0 (0-0.2) k/uL Sodium 141 (137-145) mmol/L Potassium 4.1 (3.5-5.1) mmol/L Chloride 103 (98-107) mmol/L Carbon Dioxide 28 (22-30) mmol/L Anion Gap 10 mmol/L BUN 14 (9-20) mg/dL Creatinine 0.88 (0.66-1.25) mg/dL Est GFR (CKD-EPI)AfAm >90 (>60 ml/min/1.73 sqM) Est GFR (CKD-EPI)NonAf >90 (>60 ml/min/1.73 sqM) Glucose 113 H (74-99) mg/dL Calcium 11.0 H (8.4-10.2) mg/dL Total Bilirubin 1.0 (0.2-1.3) mg/dL AST 31 (17-59) U/L ALT 49 (4-49) U/L Alkaline Phosphatase 85 (38-126) U/L Total Protein 8.2 (6.3-8.2) g/dL Albumin 5.1 H (3.5-5.0) g/dL Amylase 86 (30-110) U/L Lipase 108 (23-300) U/L Disposition Clinical Impression: Leukocytosis, Intractable nausea and vomiting, Cyclic vomiting syndrome, Drug- seeking behavior Disposition: HOME SELF-CARE Condition: Stable Instructions (If sedation given, give patient instructions): Acute Nausea and Vomiting (ED) Additional Instructions: Please return to the Emergency Department if symptoms worsen or any other concerns. Follow-up with primary care and GI specialist. Highly recommend discontinuing smoking marijuana as it can cause extreme abdominal discomfort with nausea and vomiting. Increase fluids Is patient prescribed a controlled substance at d/c from ED?: No Referrals: Mary Dougherty MD [Primary Care Provider] - 1-2 days Time of Disposition: 19:51
[2020-06-15 18:26] LABS: Basophils % (A) 0 %; Eosinophils # (A) 0.3 k/uL (0-0.7); Eosinophils % (A) 2 %; HCT 46.1 % (39.0-53.0); Lymphocytes # (A) 1.9 k/uL (1.0-4.8); Lymphocytes % (A) 10 %; MCHC 34.8 g/dL (31.0-37.0); MCV 86.3 fL (80.0-100.0); Mean Platelet Volume 6.8; Monocytes # (A) 0.8 k/uL (0-1.0); Monocytes % (A) 4 %; Neutrophils # (A) 16.2 k/uL (1.3-7.7); Neutrophils % (A) 84 %; Platelet Count 345 k/uL (150-450); RBC 5.35 m/uL (4.30-5.90); RDW 13.1 % (11.5-15.5); WBC 19.3 k/uL (3.8-10.6)
[2020-06-15 18:34] LABS: ALT 49 U/L (4-49); AST 31 U/L (17-59); African American GFR (CKD) >90 (>60 ml/min/1.73 sqM); Albumin 5.1 g/dL (3.5-5.0); Alkaline Phosphatase 85 U/L (38-126); Amylase 86 U/L (30-110); Anion Gap 10 mmol/L; Blood Urea Nitrogen 14 mg/dL (9-20); Carbon Dioxide 28 mmol/L (22-30); Chloride 103 mmol/L (98-107); Glucose 113 mg/dL (74-99); Lipase 108 U/L (23-300); Non-African American GFR(CKD) >90 (>60 ml/min/1.73 sqM); Potassium 4.1 mmol/L (3.5-5.1); Sodium 141 mmol/L (137-145); Total Protein 8.2 g/dL (6.3-8.2)
[2020-06-15] MEDS ORDERED: MORPHINE SULFATE 4 MG/ML SYRINGE IVP STA (19:51)
[2020-06-15] MEDS ORDERED: PANTOPRAZOLE 40 MG/10 ML VIAL IVP STA (20:31)
[2020-06-15 20:48] VITALS: BP 152/97; PULSE 77; RESP 18
== END 2020-06-15 20:48 | disposition home or self-care (01) ==
LOC: EC 16:54
DX: D72.829 Elevated white blood cell count, unspecified (principal); R11.15 Cyclical vomiting syndrome unrelated to migraine; R11.2 Nausea with vomiting, unspecified; R10.84 Generalized abdominal pain; J45.909 Unspecified asthma, uncomplicated; K21.9 Gastro-esophageal reflux disease without esophagitis; F41.9 Anxiety disorder, unspecified; F12.90 Cannabis use, unspecified, uncomplicated; Z79.899 Other long term (current) drug therapy; Z76.5 Malingerer [conscious simulation]
CPT/HCPCS: 36415; 80053; 82150; 83690; 85025; 99284; 96374; 96375 ×4; 96361; J2270; J1200; J2765; J1885; C9113

== ENCOUNTER 2020-06-16 04:37 | Emergency (ER) | payer OTHER ==
--- NOTE | 2020-06-16 04:43 | ED ---
Recheck HPI - General Stated Complaint: ABD Pain Time Seen by Provider: 06/16/20 04:42 - Related Data Home Medications Medication Instructions Recorded Confirmed Omeprazole 20 mg PO BID 07/10/18 05/16/20 LORazepam [Ativan] 1 mg PO QID PRN 08/13/18 05/16/20 Amitriptyline HCl [Elavil] 150 mg PO HS 10/08/19 05/16/20 Baclofen [Lioresal] 20 mg PO QID PRN 10/08/19 05/16/20 Hydrocodone/Acetaminophen [[place] 1 tab PO TID PRN 01/27/20 05/16/20 10-325] Ondansetron Odt [Zofran Odt] 8 mg PO Q8H PRN 02/19/20 05/16/20 Ubidecarenone [Co Q-10] 300 mg PO DAILY 05/05/20 05/16/20 Allergies Allergy/AdvReac Type Severity Reaction Status Date / Time No Known Allergies Allergy Verified 06/16/20 05:04 Review of Systems ROS Statement: Those systems with pertinent positive or pertinent negative responses have been documented in the HPI. ROS Other: All systems not noted in ROS Statement are negative. Past Medical History Past Medical History: Asthma, GERD/Reflux Additional Past Medical History / Comment(s): cyclic vomiting syndrome, numbness/tingling bilateral feet when vomiting, low back pain/ruptured discs, occupational asthma, History of Any Multi-Drug Resistant Organisms: None Reported Past Surgical History: Adenoidectomy, Appendectomy, Cholecystectomy, Orthopedic Surgery, Tonsillectomy Additional Past Surgical History / Comment(s): EGD, ORIF bilateral ankles, Past Anesthesia/Blood Transfusion Reactions: No Reported Reaction Past Psychological History: Anxiety Smoking Status: Never smoker Past Alcohol Use History: None Reported Past Drug Use History: Marijuana - Past Family History Father Family Medical History: No Reported History Mother Family Medical History: Diabetes Mellitus Additional Family Medical History / Comment(s): severe food allergies Course Vital Signs 06/16/20 05:01 Temperature 98.6 F Pulse Rate 100 Respiratory 20 Rate Blood Pressure 152/96 O2 Sat by Pulse 100 Oximetry Medical Decision Making - Lab Data Result diagrams: 06/16/20 05:59 06/16/20 05:59 Lab Results 05/11/21 05/11/21 Range/Units 05:59 05:59 WBC 16.5 H (3.8-10.6) k/uL RBC 5.17 (4.30-5.90) m/uL Hgb 15.6 (13.0-17.5) gm/dL Hct 44.6 (39.0-53.0) % MCV 86.4 (80.0-100.0) fL MCH 30.1 (25.0-35.0) pg MCHC 34.8 (31.0-37.0) g/dL RDW 13.1 (11.5-15.5) % Plt Count 308 (150-450) k/uL MPV 7.1 Neutrophils % 85 % Lymphocytes % 9 % Monocytes % 5 % Eosinophils % 1 % Basophils % 0 % Neutrophils # 14.0 H (1.3-7.7) k/uL Lymphocytes # 1.4 (1.0-4.8) k/uL Monocytes # 0.9 (0-1.0) k/uL Eosinophils # 0.2 (0-0.7) k/uL Basophils # 0.0 (0-0.2) k/uL Sodium 141 (137-145) mmol/L Potassium 4.5 (3.5-5.1) mmol/L Chloride 102 (98-107) mmol/L Carbon Dioxide 26 (22-30) mmol/L Anion Gap 13 mmol/L BUN 12 (9-20) mg/dL Creatinine 0.84 (0.66-1.25) mg/dL Est GFR (CKD-EPI)AfAm >90 (>60 ml/min/1.73 sqM) Est GFR (CKD-EPI)NonAf >90 (>60 ml/min/1.73 sqM) Glucose 108 H (74-99) mg/dL Calcium 10.8 H (8.4-10.2) mg/dL Phosphorus 3.9 (2.5-4.5) mg/dL Magnesium 1.9 (1.6-2.3) mg/dL Total Bilirubin 1.3 (0.2-1.3) mg/dL AST 27 (17-59) U/L ALT 41 (4-49) U/L Alkaline Phosphatase 69 (38-126) U/L Total Protein 8.1 (6.3-8.2) g/dL Albumin 5.1 H (3.5-5.0) g/dL Disposition Clinical Impression: Intractable nausea and vomiting Disposition: HOME SELF-CARE Condition: Good Instructions (If sedation given, give patient instructions): Acute Nausea and Vomiting (ED) Is patient prescribed a controlled substance at d/c from ED?: No Referrals: Mary Dougherty MD [Primary Care Provider] - 1-2 days
[2020-06-16 05:04] VITALS: TEMP 98.6
[2020-06-16] MEDS ORDERED: PROCHLORPERAZINE INJ 10 MG/2 ML VIAL IVP STA (05:33)
[2020-06-16] MEDS ORDERED: DIAZEPAM 5 MG/ML 2 ML INJ IVP STA (05:33)
[2020-06-16] MEDS ORDERED: diphenhydrAMINE 50 MG/ML 1 ML VIAL IVP STA (05:33)
[2020-06-16] MEDS ORDERED: HYDROmorphone 1 MG/ML 1 ML SYRINGE IVP STA (05:33)
[2020-06-16] MEDS ORDERED: SODIUM CHLORIDE 0.9% 1,000 ML IV STA ×2 (05:33)
[2020-06-16 06:07] LABS: Basophils % (A) 0 %; Eosinophils # (A) 0.2 k/uL (0-0.7); Eosinophils % (A) 1 %; HCT 44.6 % (39.0-53.0); HGB 15.6 gm/dL (13.0-17.5); Lymphocytes # (A) 1.4 k/uL (1.0-4.8); Lymphocytes % (A) 9 %; MCH 30.1 pg (25.0-35.0); MCHC 34.8 g/dL (31.0-37.0); MCV 86.4 fL (80.0-100.0); Mean Platelet Volume 7.1; Monocytes # (A) 0.9 k/uL (0-1.0); Monocytes % (A) 5 %; Neutrophils % (A) 85 %; Platelet Count 308 k/uL (150-450); RBC 5.17 m/uL (4.30-5.90); RDW 13.1 % (11.5-15.5); WBC 16.5 k/uL (3.8-10.6)
[2020-06-16 06:24] LABS: ALT 41 U/L (4-49); AST 27 U/L (17-59); African American GFR (CKD) >90 (>60 ml/min/1.73 sqM); Albumin 5.1 g/dL (3.5-5.0); Alkaline Phosphatase 69 U/L (38-126); Anion Gap 13 mmol/L; Blood Urea Nitrogen 12 mg/dL (9-20); Calcium 10.8 mg/dL (8.4-10.2); Carbon Dioxide 26 mmol/L (22-30); Chloride 102 mmol/L (98-107); Glucose 108 mg/dL (74-99); Magnesium 1.9 mg/dL (1.6-2.3); Non-African American GFR(CKD) >90 (>60 ml/min/1.73 sqM); Phosphorus 3.9 mg/dL (2.5-4.5); Potassium 4.5 mmol/L (3.5-5.1); Sodium 141 mmol/L (137-145); Total Bilirubin 1.3 mg/dL (0.2-1.3); Total Protein 8.1 g/dL (6.3-8.2)
[2020-06-16 07:04] VITALS: BP 115/77; PULSE 75; RESP 16
== END 2020-06-16 07:04 | disposition home or self-care (01) ==
LOC: EC 04:37
DX: R11.2 Nausea with vomiting, unspecified (principal)
CPT/HCPCS: 36415; 80053; 83735; 84100; 85025; 99284; 96374; 96375 ×3; J1200; J0780; J3360; J1170

== ENCOUNTER 2020-08-12 00:07 | Observation (INO) | payer OTHER ==
[2020-08-12] MEDS ORDERED: PROCHLORPERAZINE INJ 10 MG/2 ML VIAL IVP STA (00:20)
[2020-08-12] MEDS ORDERED: PANTOPRAZOLE 40 MG/10 ML VIAL IVP STA (00:20)
[2020-08-12] MEDS ORDERED: SODIUM CHLORIDE 0.9% 2,000 ML IV STA (00:20)
[2020-08-12] MEDS ORDERED: diphenhydrAMINE 50 MG/ML 1 ML VIAL IVP STA (00:20)
[2020-08-12] MEDS ORDERED: LORazepam 2 MG/ML INJ IV STA (00:20)
[2020-08-12] MEDS ORDERED: HYDROmorphone 1 MG/ML 1 ML SYRINGE IVP STA ×2 (00:20→02:07)
--- NOTE | 2020-08-12 00:20 | ED ---
Nausea/Vomiting/Diarrhea HPI - General Chief complaint: Nausea/Vomiting/Diarrhea Stated complaint: Abd Pain Time Seen by Provider: 08/12/20 00:12 Source: patient, RN notes reviewed, old records reviewed Mode of arrival: ambulatory Limitations: no limitations - History of Present Illness Initial comments: This is a 35-year-old male DF for evaluation patient has persistent abdominal pain with persistent nausea vomiting. Patient has no recent hospital admission but does have significant abdominal pain with persistent nausea vomiting syndrome vomiting syndrome is states is about as bad as his been as of late. Denies recent drug or alcohol abuse. No fevers MD complaint: nausea, vomiting, abdominal pain -: hour(s) Description of Vomiting: food contents Description of Diarrhea: water Associated Abdominal Pain: Yes Location: diffuse Radiation: none Severity: severe Severity scale (1-10): 10 Quality: stabbing, aching, constant Consistency: constant Improves with: none Worsens with: none Context: other (History of cyclic vomiting syndrome) Associated Symptoms: myalgias, loss of appetite, nausea/vomiting, weakness - Related Data Home Medications Medication Instructions Recorded Confirmed Omeprazole 20 mg PO BID 07/10/18 08/12/20 LORazepam [Ativan] 1 mg PO QID PRN 08/13/18 08/12/20 Amitriptyline HCl [Elavil] 150 mg PO HS 10/08/19 08/12/20 Baclofen [Lioresal] 20 mg PO QID PRN 10/08/19 08/12/20 Ondansetron Odt [Zofran ODT] 8 mg PO Q8H PRN 02/19/20 08/12/20 Ubidecarenone [Co Q-10] 300 mg PO DAILY 05/05/20 08/12/20 Previous Rx's Medication Instructions Recorded HYDROcodone/APAP 5-325MG [[place] 1 tab PO Q4HR PRN 3 Days #18 tab 08/13/20 5-325] Allergies Allergy/AdvReac Type Severity Reaction Status Date / Time No Known Allergies Allergy Verified 08/12/20 08:19 Review of Systems ROS Statement: Those systems with pertinent positive or pertinent negative responses have been documented in the HPI. ROS Other: All systems not noted in ROS Statement are negative. Past Medical History Past Medical History: Asthma, GERD/Reflux Additional Past Medical History / Comment(s): cyclic vomiting syndrome, numbness/tingling bilateral feet when vomiting, low back pain/ruptured discs, occupational asthma, History of Any Multi-Drug Resistant Organisms: None Reported Past Surgical History: Adenoidectomy, Appendectomy, Cholecystectomy, Orthopedic Surgery, Tonsillectomy Additional Past Surgical History / Comment(s): EGD, ORIF bilateral ankles, Past Anesthesia/Blood Transfusion Reactions: No Reported Reaction Past Psychological History: Anxiety Smoking Status: Never smoker Past Alcohol Use History: None Reported Past Drug Use History: Marijuana - Past Family History Father Family Medical History: No Reported History Mother Family Medical History: Diabetes Mellitus Additional Family Medical History / Comment(s): severe food allergies General Exam Limitations: no limitations General appearance: anxious, in distress Head exam: Present: atraumatic, normocephalic, normal inspection Eye exam: Present: normal appearance, PERRL, EOMI. Absent: scleral icterus, conjunctival injection, periorbital swelling ENT exam: Present: normal exam, mucous membranes moist Neck exam: Present: normal inspection. Absent: tenderness, meningismus, lymph adenopathy Respiratory exam: Present: normal lung sounds bilaterally. Absent: respiratory distress, wheezes, rales, rhonchi, stridor Cardiovascular Exam: Present: regular rate, normal rhythm, normal heart sounds. Absent: systolic murmur, diastolic murmur, rubs, gallop, clicks GI/Abdominal exam: Present: soft, normal bowel sounds. Absent: distended, tenderness, guarding, rebound, rigid Extremities exam: Present: normal inspection, full ROM, normal capillary refill. Absent: tenderness, pedal edema, joint swelling, calf tenderness Back exam: Present: normal inspection Neurological exam: Present: alert, oriented X3, CN II-XII intact Psychiatric exam: Present: normal affect, normal mood Skin exam: Present: warm, dry, intact, normal color. Absent: rash Course Vital Signs 08/12/20 00:07 Temperature 97.5 F L Pulse Rate 90 Respiratory 18 Rate Blood Pressure 152/87 O2 Sat by Pulse 98 Oximetry - Reevaluation(s) Reevaluation #1: Medical record is reviewed Patient symptoms are improved here in the ER Patient is in no acute distress Patient informed results and questions answered Medical Decision Making - Medical Decision Making History female DF for evaluation of abdominal pain with nausea and vomiting. History of cyclic vomiting syndrome, unable to control here in the ER patient be admitted for symptom management - Lab Data Result diagrams: 08/12/20 00:42 08/12/20 04:37 Lab Results 08/12/20 08/12/20 08/12/20 Range/Units 00:42 00:42 00:42 WBC 12.8 H (3.8-10.6) k/uL RBC 5.45 (4.30-5.90) m/uL Hgb 16.5 (13.0-17.5) gm/dL Hct 47.1 (39.0-53.0) % MCV 86.5 (80.0-100.0) fL MCH 30.3 (25.0-35.0) pg MCHC 35.1 (31.0-37.0) g/dL RDW 13.2 (11.5-15.5) % Plt Count 338 (150-450) k/uL MPV 7.9 Neutrophils % 75 % Lymphocytes % 18 % Monocytes % 5 % Eosinophils % 1 % Basophils % 1 % Neutrophils # 9.6 H (1.3-7.7) k/uL Lymphocytes # 2.2 (1.0-4.8) k/uL Monocytes # 0.6 (0-1.0) k/uL Eosinophils # 0.2 (0-0.7) k/uL Basophils # 0.1 (0-0.2) k/uL Sodium 145 (137-145) mmol/L Potassium 4.5 (3.5-5.1) mmol/L Chloride 106 (98-107) mmol/L Carbon Dioxide 26 (22-30) mmol/L Anion Gap 13 mmol/L BUN 16 (9-20) mg/dL Creatinine 0.82 (0.66-1.25) mg/dL Est GFR (CKD-EPI)AfAm >90 (>60 ml/min/1.73 sqM) Est GFR (CKD-EPI)NonAf >90 (>60 ml/min/1.73 sqM) Glucose 112 H (74-99) mg/dL Plasma Lactic Acid [place] 1.4 (0.7-2.0) mmol/L Calcium 11.1 H (8.4-10.2) mg/dL Total Bilirubin 1.0 (0.2-1.3) mg/dL AST 36 (17-59) U/L ALT 42 (4-49) U/L Alkaline Phosphatase 85 (38-126) U/L Creatine Kinase 103 (55-170) U/L Total Protein 8.5 H (6.3-8.2) g/dL Albumin 5.5 H (3.5-5.0) g/dL Amylase 73 (30-110) U/L Lipase 162 (23-300) U/L Disposition Clinical Impression: Intractable nausea and vomiting, Nausea and vomiting, Failure of outpatient treatment Disposition: HOME SELF-CARE Condition: Good Is patient prescribed a controlled substance at d/c from ED?: No
[2020-08-12 00:58] LABS: Basophils # (A) 0.1 k/uL (0-0.2); Basophils % (A) 1 %; Eosinophils # (A) 0.2 k/uL (0-0.7); Eosinophils % (A) 1 %; HCT 47.1 % (39.0-53.0); HGB 16.5 gm/dL (13.0-17.5); Lymphocytes # (A) 2.2 k/uL (1.0-4.8); Lymphocytes % (A) 18 %; MCH 30.3 pg (25.0-35.0); MCHC 35.1 g/dL (31.0-37.0); MCV 86.5 fL (80.0-100.0); Mean Platelet Volume 7.9; Monocytes # (A) 0.6 k/uL (0-1.0); Monocytes % (A) 5 %; Neutrophils # (A) 9.6 k/uL (1.3-7.7); Neutrophils % (A) 75 %; Platelet Count 338 k/uL (150-450); RBC 5.45 m/uL (4.30-5.90); RDW 13.2 % (11.5-15.5); WBC 12.8 k/uL (3.8-10.6)
[2020-08-12 01:09] LABS: ALT 42 U/L (4-49); AST 36 U/L (17-59); African American GFR (CKD) >90 (>60 ml/min/1.73 sqM); Albumin 5.5 g/dL (3.5-5.0); Alkaline Phosphatase 85 U/L (38-126); Amylase 73 U/L (30-110); Anion Gap 13 mmol/L; Blood Urea Nitrogen 16 mg/dL (9-20); Calcium 11.1 mg/dL (8.4-10.2); Carbon Dioxide 26 mmol/L (22-30); Chloride 106 mmol/L (98-107); Creatine Kinase 103 U/L (55-170); Glucose 112 mg/dL (74-99); Lipase 162 U/L (23-300); Non-African American GFR(CKD) >90 (>60 ml/min/1.73 sqM); Sodium 145 mmol/L (137-145); Total Protein 8.5 g/dL (6.3-8.2)
[2020-08-12 01:14] LABS: Potassium 4.5 mmol/L (3.5-5.1)
[2020-08-12] MEDS ORDERED: ONDANSETRON 4 MG/2 ML VIAL IVP STA (01:30)
[2020-08-12] MEDS ORDERED: SODIUM CHLORIDE 0.9% 1,000 ML IV ONE (02:08)
[2020-08-12] MEDS ORDERED: diphenhydrAMINE 50 MG/ML 1 ML VIAL IVP PRN (02:40)
[2020-08-12] MEDS ORDERED: HYDROmorphone 1 MG/ML 1 ML SYRINGE IVP PRN (02:40)
--- NOTE | 2020-08-12 04:25 | P.HPIM ---
History of Present Illness H&P Date: 08/12/20 Chief Complaint: Abdominal pain 35-year-old male with history of cyclical vomiting syndrome Patient comes in in with severe epigastric abdominal pain started all of a sudden today associated with repeated vomiting pain is nonradiating, no aggravating or relieving factor he has poor appetite is following up multiple times all day denies any hematemesis or coffee-ground vomiting. He denies any fevers or chills denies any diarrhea however he feels that pain is so severe for which she came to the hospital. He says that this has happened before and usually takes couple days and will go away but he would require pain medications and IV fluid hydration Patient denies any recent traveling denies any sick contact denies any coughing chest pain or trouble breathing denies any fevers or chills denies any changes in his urination He denies any GI bleeding otherwise. Blood work in the ED overall was unremarkable except for some leukocytosis, and hypercalcemia Review of Systems Pertinent positives as noted in HPI. All other systems were reviewed and are negative Past Medical History Past Medical History: Asthma, GERD/Reflux Additional Past Medical History / Comment(s): cyclic vomiting syndrome, numbness/tingling bilateral feet when vomiting, low back pain/ruptured discs, occupational asthma, History of Any Multi-Drug Resistant Organisms: None Reported Past Surgical History: Adenoidectomy, Appendectomy, Cholecystectomy, Orthopedic Surgery, Tonsillectomy Additional Past Surgical History / Comment(s): EGD, ORIF bilateral ankles, Past Anesthesia/Blood Transfusion Reactions: No Reported Reaction Past Psychological History: Anxiety Additional Psychological History / Comment(s): PT LIVES WITH HIS GIRL FRIEND AND 2 KIDS. Smoking Status: Never smoker Past Alcohol Use History: None Reported Additional Past Alcohol Use History / Comment(s): Pt states he smoked starting 1994, QUIT 2007. Past Drug Use History: Marijuana Additional Drug Use History / Comment(s): daily MEDICAL marijuana use(1-2 TIMES A DAY) - Past Family History Father Family Medical History: No Reported History Mother Family Medical History: Diabetes Mellitus Additional Family Medical History / Comment(s): severe food allergies Medications and Allergies Home Medications Medication Instructions Recorded Confirmed Type Omeprazole 20 mg PO BID 07/10/18 05/16/20 History LORazepam [Ativan] 1 mg PO QID PRN 08/13/18 05/16/20 History Amitriptyline HCl [Elavil] 150 mg PO HS 10/08/19 05/16/20 History Baclofen [Lioresal] 20 mg PO QID PRN 10/08/19 05/16/20 History Hydrocodone/Acetaminophen [[place] 1 tab PO TID PRN 01/27/20 05/16/20 History 10-325] Ondansetron Odt [Zofran Odt] 8 mg PO Q8H PRN 02/19/20 05/16/20 History Ubidecarenone [Co Q-10] 300 mg PO DAILY 05/05/20 05/16/20 History Allergies Allergy/AdvReac Type Severity Reaction Status Date / Time No Known Allergies Allergy Verified 08/12/20 00:10 Physical Exam Vitals: Vital Signs Temp Pulse Pulse Resp BP BP Pulse Ox 08/12/20 03:33 98.2 F 69 12 172/92 98 08/12/20 00:07 97.5 F L 90 18 152/87 98 Intake and Output 08/11/20 08/11/20 08/12/20 14:59 22:59 06:59 Other: Voiding Method Toilet Urinal Weight 113.398 kg Constitutional: Patient seems uncomfortable with a lot of pain in his stomach Eyes: Anicteric sclerae, moist conjunctiva, Pupils equal round reactive to light ENMT: NC/AT Oropharynx clear, no erythema, or exudates Neck: Supple, FROM, no masses, or JVD No carotid bruits No thyromegaly Lungs: Clear to auscultation Clear to percussion Normal respiratory effort, no accessory muscle use Cardiovascular: Heart regular in rate and rhythm, No murmurs, gallops, or rubs No peripheral edema Abdominal: Soft Discomfort to palpation of the Epigastric region, no guarding, rebound or rigidity Abdomen moving with respiration Normoactive bowel sounds No hepatomegaly, No splenomegaly No palpable mass No abdominal wall hernia noted Skin: Normal temperature, tone, texture, turgor No induration No subcutaneous nodules No rash, lesions No ulcers Extremities: No digital cyanosis No clubbing Pedal pulses intact and symmetrical Radial pulses intact and symmetrical No calf tenderness Psychiatric: Alert and oriented to person, place and time Appropriate affect fair judgement Neuro Muscles Strength 4/5 in all 4 extremities Sensation to light touch grossly present throughout Cranial nerves II-XII grossly intact No focal sensory deficits Lymphatics: no palpable cervical or supraclavicular , or inguinal lymph nodes Results CBC & Chem 7: 08/12/20 00:42 08/12/20 00:42 Labs: Abnormal Lab Results - Last 24 Hours (Table) 08/12/20 08/12/20 Range/Units 00:42 00:42 WBC 12.8 H (3.8-10.6) k/uL Neutrophils # 9.6 H (1.3-7.7) k/uL Glucose 112 H (74-99) mg/dL Calcium 11.1 H (8.4-10.2) mg/dL Total Protein 8.5 H (6.3-8.2) g/dL Albumin 5.5 H (3.5-5.0) g/dL Thrombosis Risk Factor Assmnt - Choose All That Apply Any of the Below Risk Factors Present?: No Other Risk Factors: No Other congenital or acquired thrombophilia - If yes, enter type in comment: No Thrombosis Risk Factor Assessment Level: Very Low Risk Assessment and Plan Assessment: Acute recurrent epigastric abdominal pain with refractory nausea vomiting Hypercalcemia Plan Nothing by mouth Aggressive IV fluid hydration Pain control with opiates Symptomatic control of nausea vomiting IV fluid hydration with normal saline for natriuresis and follow-up calcium level Supportive care Consider GI consultation Follow-up electrolytes Intermittent asthma DuoNeb's when necessary as needed Patient is full code DVT prophylaxis mechanical Anticipated length of stay less than 2 midnights Anticipated discharge home
[2020-08-12 05:13] LABS: African American GFR (CKD) >90 (>60 ml/min/1.73 sqM); Anion Gap 10 mmol/L; Blood Urea Nitrogen 12 mg/dL (9-20); Calcium 9.7 mg/dL (8.4-10.2); Carbon Dioxide 25 mmol/L (22-30); Chloride 104 mmol/L (98-107); Glucose 125 mg/dL (74-99); Non-African American GFR(CKD) >90 (>60 ml/min/1.73 sqM); Potassium 3.9 mmol/L (3.5-5.1); Sodium 139 mmol/L (137-145)
[2020-08-12 06:09] LABS: Appearance,Urine Clear (Clear); Bilirubin,Urine Negative (Negative); Blood,Urine Negative (Negative); Color,Urine Light Yellow; Glucose,Urine (UA) Negative (Negative); Ketones,Urine 2+ (Negative); Leukocyte Esterase,Urine Negative (Negative); Nitrite,Urine Negative (Negative); Protein,Urine Negative (Negative); Specific Gravity,Urine 1.018 (1.001-1.035); Urobilinogen,Urine <2.0 mg/dL (<2.0)
[2020-08-12] MEDS: HYDROmorphone 1 MG/ML 1 ML SYRINGE IVP PRN ×5 (06:10→23:51)
[2020-08-12] MEDS: PROCHLORPERAZINE INJ 10 MG/2 ML VIAL IVP PRN ×3 (06:23→23:51)
[2020-08-12] MEDS: PANTOPRAZOLE 40 MG/10 ML VIAL IVP SCH ×2 (09:02→19:38)
--- NOTE | 2020-08-12 11:29 | US ---
EXAMINATION TYPE: US abdomen complete DATE OF EXAM: 08/12/2020 COMPARISON: CT 2020, US 2018 CLINICAL HISTORY: right upper quadrant pain. Exam done portable. EXAM MEASUREMENTS: Liver Length: 17.0 cm CBD: 0.6 cm Spleen: n/a Right Kidney: 10.0 x 5.2 x 5.1 cm Left Kidney: 10.3 x 4.7 x 4.0 cm Pancreas: Limited visualization of the pancreas due to overlying bowel gas. Liver: wnl Gallbladder: surgically absent Evidence for sonographic Claros's sign: no CBD: visualized portions wnl, limited by overlying bowel gas Spleen: Not visualized by overlying bowel gas Right Kidney: wnl Left Kidney: wnl Upper IVC: wnl Abd Aorta: wnl Limited visualization of the pancreas due to overlying bowel gas. Cholecystectomy. The common duct is also partially obscured due to overlying bowel gas. The spleen is not visualized due to overlying ruperto wel gas. IMPRESSION: 1. Limited visualization of the pancreas due to overlying bowel gas. The common duct is partially obs cured. The spleen is not seen due to overlying bowel gas. 2. Cholecystectomy. 3. No renal calculi or hydronephrosis of the bilateral kidneys.
--- NOTE | 2020-08-12 12:52 | P.PN ---
Progress Note - Text Progress Note Date: 08/12/20 I saw and evaluated the patient and apparently today. I agree with the documented assessment/plan by my colleague earlier this morning. I will also order a right upper quadrant ultrasound given right upper quadrant pain. Conservative pain management at this time.
[2020-08-13 07:13] VITALS: BP 142/79; PULSE 103; RESP 18; TEMP 98
[2020-08-13] MEDS: PANTOPRAZOLE 40 MG/10 ML VIAL IVP SCH (07:15)
[2020-08-13] MEDS: HYDROmorphone 1 MG/ML 1 ML SYRINGE IVP PRN ×2 (07:15→11:52)
--- NOTE | 2020-08-13 12:06 | P.DS ---
Providers Date of admission: 08/12/20 02:08 Expected date of discharge: 08/13/20 Attending physician: Isrrael Gordon MD Primary care physician: Mary Dougherty MD Hospital Course: 35-year-old male with history of cyclical vomiting syndrome Patient comes in in with severe epigastric abdominal pain started all of a sudden today associated with repeated vomiting pain is nonradiating, no aggravating or relieving factor he has poor appetite is following up multiple times all day denies any hematemesis or coffee-ground vomiting. He denies any fevers or chills denies any diarrhea however he feels that pain is so severe for which she came to the hospital. He says that this has happened before and usually takes couple days and will go away but he would require pain medications and IV fluid hydration Patient denies any recent traveling denies any sick contact denies any coughing chest pain or trouble breathing denies any fevers or chills denies any changes in his urination He denies any GI bleeding otherwise. Blood work in the ED overall was unremarkable except for some leukocytosis, and hypercalcemia Acute recurrent epigastric abdominal pain with refractory nausea vomiting Hypercalcemia Patient was admitted to the hospital under observation and given IVF rehydration, as well as pain control with opiates. Calcium level resolved to normal limits. Patients pain, n/v improved with conservative management and pain control. RUQ US did not demonstrate any acute pathology but was limited by bowel gas. Patient was able to be discharged home after tolerating a diet including banana and pudding. Pt will follow up with PCP on discharge. He was prescribed 3 days of norco PRN for pain. Intermittent asthma No changes to home medications. Assessment: Gen: awake, alert HEENT: normocephalic, atraumatic, good hearing acuity, moist mucous membranes Resp: good air exchange, breathing comfortably with no accessory muscle use CVS: good distal perfusion x 4, GI: soft, NTTP, ND : no SPT, no CVAT, perez catheter not present MSK: no pitting edema, no clubbing Neuro: non-focal, moving all extremities Psych: cooperative, euthymic mood Patient Condition at Discharge: Good Plan - Discharge Summary Discharge Rx Participant: No New Discharge Prescriptions: New HYDROcodone/APAP 5-325MG [[place] 5-325] 1 tab PO Q4HR PRN 3 Days #18 tab PRN Reason: Pain Continue Omeprazole 20 mg PO BID LORazepam [Ativan] 1 mg PO QID PRN PRN Reason: Anxiety Baclofen [Lioresal] 20 mg PO QID PRN PRN Reason: Muscle Spasm Amitriptyline HCl [Elavil] 150 mg PO HS Ondansetron Odt [Zofran ODT] 8 mg PO Q8H PRN PRN Reason: Nausea Ubidecarenone [Co Q-10] 300 mg PO DAILY Discontinued Hydrocodone/Acetaminophen [[place] 10-325] 1 tab PO TID PRN PRN Reason: Pain Discharge Medication List Omeprazole 20 mg PO BID 07/10/18 [History] LORazepam [Ativan] 1 mg PO QID PRN 08/13/18 [History] Amitriptyline HCl [Elavil] 150 mg PO HS 10/08/19 [History] Baclofen [Lioresal] 20 mg PO QID PRN 10/08/19 [History] Ondansetron Odt [Zofran ODT] 8 mg PO Q8H PRN 02/19/20 [History] Ubidecarenone [Co Q-10] 300 mg PO DAILY 05/05/20 [History] HYDROcodone/APAP 5-325MG [[place] 5-325] 1 tab PO Q4HR PRN 3 Days #18 tab 08/13/20 [Rx] Follow up Appointment(s)/Referral(s): Mary Dougherty MD [Primary Care Provider] - 08/17/20 2:15 pm Patient Instructions/Handouts: Acute Nausea and Vomiting (DC) Discharge Disposition: HOME SELF-CARE
== END 2020-08-13 12:29 | disposition home or self-care (01) ==
LOC: EC 00:07 → 6NMEDSUR 02:08
PROVIDERS: ADMIT Internal Medicine; ATTEND Internal Medicine
DX: R11.15 Cyclical vomiting syndrome unrelated to migraine (principal); E83.52 Hypercalcemia; D72.829 Elevated white blood cell count, unspecified; R10.13 Epigastric pain; R10.11 Right upper quadrant pain; J45.20 Mild intermittent asthma, uncomplicated; K21.9 Gastro-esophageal reflux disease without esophagitis; M79.10 Myalgia, unspecified site; R53.1 Weakness; R63.0 Anorexia; F41.9 Anxiety disorder, unspecified; M54.5 Low back pain; Z79.899 Other long term (current) drug therapy; Z90.49 Acquired absence of other specified parts of digestive tract; Z87.891 Personal history of nicotine dependence; Z83.3 Family history of diabetes mellitus; Z84.89 Family history of other specified conditions
CPT/HCPCS: 96376 ×3; 96361 ×2; 96374; 96375; 99285; 36415; 80053; 80048; 82150; 82550; 83605; 83690; 85025; 81003; 76700; G0378 ×2; J2060; J1200; J0780; J1170 ×2; C9113 ×2; J1790

== ENCOUNTER 2020-09-15 07:47 | Observation (INO) | payer OTHER ==
[2020-09-15 07:53] VITALS: RESP 18
[2020-09-15] MEDS ORDERED: diphenhydrAMINE 50 MG/ML 1 ML VIAL IVP STA (08:02)
[2020-09-15] MEDS ORDERED: SODIUM CHLORIDE 0.9% 1,000 ML IV STA (08:02)
[2020-09-15] MEDS ORDERED: ONDANSETRON 4 MG/2 ML VIAL IVP STA (08:04)
[2020-09-15] MEDS ORDERED: HYDROmorphone 1 MG/ML 1 ML SYRINGE IVP STA ×2 (08:04→09:40)
[2020-09-15] MEDS ORDERED: PANTOPRAZOLE 40 MG/10 ML VIAL IVP STA (08:05)
--- NOTE | 2020-09-15 08:39 | ED ---
General Adult HPI - General Chief complaint: Abdominal Pain Stated complaint: Abdominal Pain/Vomiting Time Seen by Provider: 09/15/20 07:54 Source: patient Mode of arrival: ambulatory Limitations: no limitations - History of Present Illness Initial comments: Patient is a 35-year-old male with history of cyclic vomiting, presenting to the emergency Department with complaints of epigastric discomfort as well as nausea and vomiting that started at 5:30 this morning. Patient states he woke from his sleep. States yesterday he felt his normal self, no abdominal pain, no fevers. He states this is what typically happens with his cyclic vomiting. He admits to history of cholecystectomy, appendectomy, no other abdominal surgeries. He's been having normal bowel movements, no dysuria. He denies any diarrhea. He states his pain is all epigastric, right upper quadrant. Denies coffee-ground emesis. States that the normal area for his pain. He has no chest pain or shortness of breath. He has no further complaints. - Related Data Home Medications Medication Instructions Recorded Confirmed Omeprazole 20 mg PO BID 07/10/18 09/15/20 LORazepam [Ativan] 1 mg PO QID PRN 08/13/18 09/15/20 Amitriptyline HCl [Elavil] 150 mg PO HS 10/08/19 09/15/20 Baclofen [Lioresal] 20 mg PO QID PRN 10/08/19 09/15/20 Ondansetron Odt [Zofran ODT] 8 mg PO Q8H PRN 02/19/20 09/15/20 Ubidecarenone [Co Q-10] 300 mg PO DAILY 05/05/20 09/15/20 HYDROcodone/APAP 10-325MG [[place] 1 tab PO TID PRN 09/15/20 09/15/20 10-325] Allergies Allergy/AdvReac Type Severity Reaction Status Date / Time No Known Allergies Allergy Verified 09/15/20 09:24 Review of Systems ROS Statement: Those systems with pertinent positive or pertinent negative responses have been documented in the HPI. ROS Other: All systems not noted in ROS Statement are negative. Past Medical History Past Medical History: Asthma, GERD/Reflux Additional Past Medical History / Comment(s): cyclic vomiting syndrome, numbness/tingling bilateral feet when vomiting, low back pain/ruptured discs, occupational asthma, History of Any Multi-Drug Resistant Organisms: None Reported Past Surgical History: Adenoidectomy, Appendectomy, Cholecystectomy, Orthopedic Surgery, Tonsillectomy Additional Past Surgical History / Comment(s): EGD, ORIF bilateral ankles, Past Anesthesia/Blood Transfusion Reactions: No Reported Reaction Past Psychological History: Anxiety Smoking Status: Never smoker Past Alcohol Use History: None Reported Past Drug Use History: Marijuana - Past Family History Father Family Medical History: No Reported History Mother Family Medical History: Diabetes Mellitus Additional Family Medical History / Comment(s): severe food allergies General Exam - General Exam Comments Initial Comments: GENERAL: Patient is well-developed and well-nourished. Patient is nontoxic and in moderate distress, actively dry heaving. HEAD: Atraumatic, normocephalic. EYES: Pupils equal round and reactive to light, extraocular movements intact, sclera anicteric, conjunctiva are normal. Eyelids were unremarkable. ENT: Nares patent, oropharynx clear without exudates. Moist mucous membranes. NECK: Normal range of motion, supple without lymphadenopathy or JVD. LUNGS: Unlabored respirations. Breath sounds clear to auscultation bilaterally and eq ual. No wheezes rales or rhonchi. HEART: Regular rate and rhythm without murmurs, rubs or gallops. ABDOMEN: Soft, epigastric discomfort on palpation, no other areas of pain,, normoactive bowel sounds. No guarding, no rebound. No masses appreciated. : Deferred MUSCULOSKELETAL: Normal extremities with adequate strength and normal range of motion, no pitting or edema. No clubbing or cyanosis. NEUROLOGICAL: Patient is alert and oriented x 3. SKIN: Warm, Dry, normal turgor, no rashes or lesions noted. Limitations: no limitations Course Vital Signs 09/15/20 07:48 Temperature 97.5 F L Pulse Rate 81 Respiratory 18 Rate Blood Pressure 162/103 O2 Sat by Pulse 100 Oximetry Medical Decision Making - Medical Decision Making Patient is a 35-year-old male with history of cyclic vomiting syndrome present ing with epigastric pain, nausea and vomiting and started suddenly about 5:30 this morning. Yesterday was his normal self. No fevers, history of cholecystectomy, appendectomy. Tender epigastric area. She has a multiple scans and ultrasounds over the past few months, no acute findings. He states his pain is like it normally is. Labs shows slight leukocytosis at 13.3, most likely reactive, rest of labs are within normal limits. He has been given fluids, multiple doses of pain meds, Zofran and Reglan protonic's, Benadryl without improvement of symptoms. He continues to have vomiting episodes and severe pain. Patient will be admitted to observation for intractable abdominal pain, nausea and vomiting, most likely from his marijuana use for cyclic vomiting. Patient accepted by Dr. Smith. Case discussed with Dr. Damico. - Lab Data Result diagrams: 09/15/20 08:27 09/15/20 08:27 Lab Results 09/15/20 09/15/20 09/15/20 Range/Units 08:27 08: 08:27 WBC 13.3 H (3.8-10.6) k/uL RBC 5.26 (4.30-5.90) m/uL Hgb 15.8 (13.0-17.5) gm/dL Hct 46.4 (39.0-53.0) % MCV 88.1 (80.0-100.0) fL MCH 30.1 (25.0-35.0) pg MCHC 34.2 (31.0-37.0) g/dL RDW 13.5 (11.5-15.5) % Plt Count 393 (150-450) k/uL MPV 7.9 Neutrophils % 75 % Lymphocytes % 20 % Monocytes % 3 % Eosinophils % 1 % Basophils % 0 % Neutrophils # 9.9 H (1.3-7.7) k/uL Lymphocytes # 2.6 (1.0-4.8) k/uL Monocytes # 0.5 (0-1.0) k/uL Eosinophils # 0.1 (0-0.7) k/uL Basophils # 0.1 (0-0.2) k/uL Sodium 139 (137-145) mmol/L Potassium 4.4 (3.5-5.1) mmol/L Chloride 105 (98-107) mmol/L Carbon Dioxide 23 (22-30) mmol/L Anion Gap 11 mmol/L BUN 17 (9-20) mg/dL Creatinine 0.69 (0.66-1.25) mg/dL Est GFR (CKD-EPI)AfAm >90 (>60 ml/min/1.73 sqM) Est GFR (CKD-EPI)NonAf >90 (>60 ml/min/1.73 sqM) Glucose 116 H (74-99) mg/dL Calcium 10.5 H (8.4-10.2) mg/dL Total Bilirubin 0.7 (0.2-1.3) mg/dL AST 24 (17-59) U/L ALT 28 (4-49) U/L Alkaline Phosphatase 81 (38-126) U/L Total Protein 7.7 (6.3-8.2) g/dL Albumin 5.1 H (3.5-5.0) g/dL Amylase 78 (30-110) U/L Lipase 99 (23-300) U/L Urine Color Yellow Urine Appearance Clear (Clear) Urine pH 6.5 (5.0-8.0) Ur Specific [place] 1.023 (1.001-1.035) Urine Protein Trace H (Negative) Urine Glucose (UA) Negative (Negative) Urine Ketones Negative (Negative) Urine Blood Trace H (Negative) Urine Nitrite Negative (Negative) Urine Bilirubin Negative (Negative) Urine Urobilinogen <2.0 (<2.0) mg/dL Ur Leukocyte Esterase Negative (Negative) Urine RBC 1 (0-5) /hpf Urine WBC 1 (0-5) /hpf Ur Squamous Epith Cells <1 (0-4) /hpf Urine Mucus Rare H (None) /hpf Disposition Clinical Impression: Cyclic vomiting syndrome, Intractable nausea and vomiting, Intractable abdominal pain Disposition: ADMITTED IP TO THIS [facility] Condition: Stable Referrals: Mary Dougherty MD [Primary Care Provider] - 1-2 days Decision Date: 09/15/20 Decision Time: 12:07
[2020-09-15 08:44] LABS: Basophils # (A) 0.1 k/uL (0-0.2); Basophils % (A) 0 %; Eosinophils # (A) 0.1 k/uL (0-0.7); Eosinophils % (A) 1 %; HCT 46.4 % (39.0-53.0); HGB 15.8 gm/dL (13.0-17.5); Lymphocytes # (A) 2.6 k/uL (1.0-4.8); Lymphocytes % (A) 20 %; MCH 30.1 pg (25.0-35.0); MCHC 34.2 g/dL (31.0-37.0); MCV 88.1 fL (80.0-100.0); Mean Platelet Volume 7.9; Monocytes # (A) 0.5 k/uL (0-1.0); Monocytes % (A) 3 %; Neutrophils # (A) 9.9 k/uL (1.3-7.7); Neutrophils % (A) 75 %; Platelet Count 393 k/uL (150-450); RBC 5.26 m/uL (4.30-5.90); RDW 13.5 % (11.5-15.5); WBC 13.3 k/uL (3.8-10.6)
[2020-09-15 08:59] LABS: Appearance,Urine Clear (Clear); Bilirubin,Urine Negative (Negative); Blood,Urine Trace (Negative); Color,Urine Yellow; Glucose,Urine (UA) Negative (Negative); Ketones,Urine Negative (Negative); Leukocyte Esterase,Urine Negative (Negative); Mucus,Urine Rare /hpf; Nitrite,Urine Negative (Negative); PH, Urine 6.5 (5.0-8.0); Protein,Urine Trace (Negative); RBC,Urine 1 /hpf (0-5); Specific Gravity,Urine 1.023 (1.001-1.035); Squamous Epithelial Cell,Urine <1 /hpf (0-4); Urobilinogen,Urine <2.0 mg/dL (<2.0); WBC,Urine 1 /hpf (0-5)
[2020-09-15 09:09] LABS: ALT 28 U/L (4-49); AST 24 U/L (17-59); African American GFR (CKD) >90 (>60 ml/min/1.73 sqM); Albumin 5.1 g/dL (3.5-5.0); Alkaline Phosphatase 81 U/L (38-126); Amylase 78 U/L (30-110); Anion Gap 11 mmol/L; Blood Urea Nitrogen 17 mg/dL (9-20); Calcium 10.5 mg/dL (8.4-10.2); Carbon Dioxide 23 mmol/L (22-30); Chloride 105 mmol/L (98-107); Glucose 116 mg/dL (74-99); Lipase 99 U/L (23-300); Non-African American GFR(CKD) >90 (>60 ml/min/1.73 sqM); Potassium 4.4 mmol/L (3.5-5.1); Sodium 139 mmol/L (137-145); Total Bilirubin 0.7 mg/dL (0.2-1.3); Total Protein 7.7 g/dL (6.3-8.2)
[2020-09-15] MEDS ORDERED: METOCLOPRAMIDE 5 MG/ML 2 ML VIAL IVP STA (10:08)
[2020-09-15] MEDS ORDERED: LORazepam 2 MG/ML INJ IV STA (10:53)
[2020-09-15] MEDS ORDERED: ACETAMINOPHEN TAB 325 MG TAB PO PRN (12:07)
[2020-09-15] MEDS ORDERED: LORazepam 2 MG/ML INJ IV PRN (12:07)
[2020-09-15] MEDS ORDERED: ONDANSETRON 4 MG/2 ML VIAL IVP PRN (12:07)
[2020-09-15] MEDS ORDERED: HYDROmorphone 0.5 MG/0.5 ML SYRINGE IVP PRN (12:07)
[2020-09-15] MEDS ORDERED: MORPHINE SULFATE 4 MG/ML SYRINGE IV PRN (12:07)
[2020-09-15] MEDS ORDERED: NALOXONE 0.4 MG/ML 1 ML VIAL IV PRN ×2 (12:07→16:36)
[2020-09-15] MEDS ORDERED: SODIUM CHLORIDE 0.9% 1,000 ML IV SCH (12:15)
[2020-09-15 13:08] VITALS: BP 154/99; PULSE 86; TEMP 97.9
[2020-09-15] MEDS ORDERED: HYDROcodone/APAP 5-325MG 1 EACH TAB PO STA (16:05)
[2020-09-15] MEDS ORDERED: LORazepam 1 MG TAB PO PRN (16:35)
[2020-09-15] MEDS ORDERED: BACLOFEN 10 MG TAB PO PRN (16:35)
[2020-09-15] MEDS ORDERED: PROMETHAZINE 25 MG TAB PO PRN (16:36)
[2020-09-15] MEDS ORDERED: PROCHLORPERAZINE 5 MG TAB PO PRN (16:36)
--- NOTE | 2020-09-15 16:39 | P.HPIM ---
History of Present Illness H&P Date: 09/15/20 Chief Complaint: Abdominal Pain 35 year old man with marijuana abuse disorder, cyclic vomiting syndrome, asthma, GERD presented with acute onset abdominal pain. He has had multiple admissions for a similar issue, with workup to this point including EGD, imaging, gastric emptying study, all of which were negative for etiology of pain. He has been diagnosed with cyclic vomiting syndrome secondary to marijuana use, but continues to use regularly. Patient says that this episode started at 530AM with sudden onset sharp abdominal pain in his epigastrum similar in nature to prior episodes. He says that this episode is more severe than in the past. He reports nausea and vomiting associated with the pain. He denies diarrhea, constipation. Denies fevers, chills, cp, palps, syncope, dyspnea, cough, dysuria, dyschezia, numbness/weakness of extremities. In the ER, he is noted to have mild leukocytosis and elevated albumin, with calcium of 10.5, which is normal when corrected for albumin. Review of Systems All Systems reviewed and pertinent positives and negatives noted in HPI, all other symptoms are negative ROS unobtainable: due to endotracheal tube Past Medical History Past Medical History: Asthma, GERD/Reflux Additional Past Medical History / Comment(s): cyclic vomiting syndrome, numbness/tingling bilateral feet when vomiting, low back pain/ruptured discs, occupational asthma, History of Any Multi-Drug Resistant Organisms: None Reported Past Surgical History: Adenoidectomy, Appendectomy, Cholecystectomy, Orthopedic Surgery, Tonsillectomy Additional Past Surgical History / Comment(s): EGD, ORIF bilateral ankles, Past Anesthesia/Blood Transfusion Reactions: No Reported Reaction Past Psychological History: Anxiety Smoking Status: Never smoker Past Alcohol Use History: None Reported Past Drug Use History: Marijuana - Past Family History Father Family Medical History: No Reported History Mother Family Medical History: Diabetes Mellitus Additional Family Medical History / Comment(s): severe food allergies Medications and Allergies Home Medications Medication Instructions Recorded Confirmed Type RX: Omeprazole 20 mg PO BID 07/10/18 09/15/20 History RX: LORazepam [Ativan] 1 mg PO QID PRN 08/13/18 09/15/20 History RX: Amitriptyline HCl [Elavil] 150 mg PO HS 10/08/19 09/15/20 History RX: Baclofen [Lioresal] 20 mg PO QID PRN 10/08/19 09/15/20 History RX: Ondansetron Odt [Zofran ODT] 8 mg PO Q8H PRN 02/19/20 09/15/20 History RX: Ubidecarenone [Co Q-10] 300 mg PO DAILY 05/05/20 09/15/20 History HYDROcodone/APAP 10-325MG [[place] 1 tab PO TID PRN 09/15/20 09/15/20 History 10-325] Allergies Allergy/AdvReac Type Severity Reaction Status Date / Time No Known Allergies Allergy Verified 09/15/20 09:24 Physical Exam Osteopathic Statement: *. No significant issues noted on an osteopathic structural exam other than those noted in the History and Physical/Consult. Vitals: Vital Signs Temp Pulse Resp BP Pulse Ox 09/15/20 13:05 97.9 F 86 18 154/99 99 09/15/20 07:48 97.5 F L 81 18 162/103 100 Intake and Output 09/15/20 09/15/20 09/15/20 06:59 14:59 22:59 Other: Weight 113.398 kg Gen: awake, alert HEENT: normocephalic, atraumatic, good hearing acuity, moist mucous membranes Resp: good air exchange, breathing comfortably with no accessory muscle use, CTAB CVS: good distal perfusion x 4, RRR, no murmurs GI: soft, diffusely ttp greater in the epigastrum, but distractable to exam : no SPT, no CVAT, perez catheter not present MSK: no pitting edema, no clubbing Neuro: non-focal, moving all extremities Psych: cooperative, labile mood Results CBC & Chem 7: 09/15/20 08:27 09/15/20 08:27 Labs: Abnormal Lab Results - Last 24 Hours (Table) 09/15/20 09/15/20 09/15/20 Range/Units 08:27 08:27 08:27 WBC 13.3 H (3.8-10.6) k/uL Neutrophils # 9.9 H (1.3-7.7) k/uL Glucose 116 H (74-99) mg/dL Calcium 10.5 H (8.4-10.2) mg/dL Albumin 5.1 H (3.5-5.0) g/dL Urine Protein Trace H (Negative) Urine Blood Trace H (Negative) Urine Mucus Rare H (None) /hpf Assessment and Plan Assessment: Abdominal Pain Cyclic Vomiting Syndrome Hypercalcemia -admit to observation -GI consult to consider repeat gastric emptying study or EGD -limit IV narcotics due to abuse potential -norco PO PRN -ativan PO + IV PRN -tylenol PO PRN -continue home baclofen -continue home amitriptyline -CLD, advance as tolerated -IVF -nausea control: zofran, phenergan, compazine, reglan PRN GERD -continue home PPI DVT PPx with early ambulation Pt is a full code
--- NOTE | 2020-09-15 18:33 | P.DS ---
Providers Date of admission: 09/15/20 12:12 Expected date of discharge: 09/15/20 Attending physician: Katherin Smith Consults: 09/15/20 16:38 Consult Physician Routine Consulting Provider: Dave Pimentel Consult Reason/Comments: Abdominal Pain, recurrent hospitalizations, consideration of repeat EGD Do you want consulting provider notified?: Yes Primary care physician: Mary Dougherty MD Hospital Course: Pt left AMA Plan - Discharge Summary New Discharge Prescriptions: No Action Omeprazole 20 mg PO BID LORazepam [Ativan] 1 mg PO QID PRN PRN Reason: Anxiety Baclofen [Lioresal] 20 mg PO QID PRN PRN Reason: Muscle Spasm Amitriptyline HCl [Elavil] 150 mg PO HS Ondansetron Odt [Zofran ODT] 8 mg PO Q8H PRN PRN Reason: Nausea Ubidecarenone [Co Q-10] 300 mg PO DAILY HYDROcodone/APAP 10-325MG [[place] 10-325] 1 tab PO TID PRN PRN Reason: Pain Discharge Medication List Omeprazole 20 mg PO BID 07/10/18 [History] LORazepam [Ativan] 1 mg PO QID PRN 08/13/18 [History] Amitriptyline HCl [Elavil] 150 mg PO HS 10/08/19 [History] Baclofen [Lioresal] 20 mg PO QID PRN 10/08/19 [History] Ondansetron Odt [Zofran ODT] 8 mg PO Q8H PRN 02/19/20 [History] Ubidecarenone [Co Q-10] 300 mg PO DAILY 05/05/20 [History] HYDROcodone/APAP 10-325MG [[place] 10-325] 1 tab PO TID PRN 09/15/20 [History] Follow up Appointment(s)/Referral(s): Mary Dougherty MD [Primary Care Provider] - 1-2 days Discharge Disposition: Left Against Medical Advice
[2020-09-15] MEDS ORDERED: AMITRIPTYLINE HCL 50 MG TAB PO SCH (21:00)
[2020-09-16] MEDS ORDERED: NON FORMULARY DRUG (Ubidecarenone [Co Q-10] 300 MG Capsule) PO SCH (09:00)
[2020-09-16] MEDS ORDERED: PANTOPRAZOLE 40 MG/10 ML VIAL IV SCH (09:00)
== END 2020-09-15 16:40 | disposition left against medical advice (07) ==
LOC: EC 07:47 → 1SOBS 12:12 → 6NMEDSUR 16:20
PROVIDERS: ADMIT Internal Medicine; ATTEND Internal Medicine
DX: R11.15 Cyclical vomiting syndrome unrelated to migraine (principal); R10.13 Epigastric pain; R10.11 Right upper quadrant pain; D72.829 Elevated white blood cell count, unspecified; E83.52 Hypercalcemia; F12.19 Cannabis abuse with unspecified cannabis-induced disorder; F41.9 Anxiety disorder, unspecified; J45.909 Unspecified asthma, uncomplicated; K21.9 Gastro-esophageal reflux disease without esophagitis; Z83.3 Family history of diabetes mellitus; Z90.49 Acquired absence of other specified parts of digestive tract
CPT/HCPCS: 99284; 96376; 96361; 96374; 96375; 36415; 80053; 82150; 83690; 85025; 81001; G0378 ×2; J2060; J1200; J2765; J2405; J1170 ×2; C9113

== ENCOUNTER 2020-10-19 10:55 | Emergency (ER) | payer OTHER ==
[2020-10-19 11:30] VITALS: RESP 18; TEMP 98.4
[2020-10-19] MEDS ORDERED: SODIUM CHLORIDE 0.9% 1,000 ML IV STA (11:55)
[2020-10-19] MEDS ORDERED: HYDROmorphone 1 MG/ML 1 ML SYRINGE IVP STA ×2 (11:55→13:41)
[2020-10-19] MEDS ORDERED: diphenhydrAMINE 50 MG/ML 1 ML VIAL IVP STA (11:55)
[2020-10-19] MEDS ORDERED: ONDANSETRON 4 MG/2 ML VIAL IVP STA ×2 (11:55→13:41)
--- NOTE | 2020-10-19 11:56 | ED ---
Nausea/Vomiting/Diarrhea HPI - General Chief complaint: Nausea/Vomiting/Diarrhea Stated complaint: abd pain, vomiting Time Seen by Provider: 10/19/20 11:42 Source: patient, RN notes reviewed Mode of arrival: ambulatory Limitations: no limitations - History of Present Illness Initial comments: Patient is a 35-year-old male that presents to the emergency department complaining of abdominal pain nausea and vomiting starting this morning. He has been to this emergency room frequently for the same complaint. He notes that most the time the vomiting and abdominal pain starts after he smokes marijuana. He notes that he woke up this morning didn't feel well smoked and then began to have excruciating abdominal pain with nausea and vomiting. Patient was actively vomiting in the room. Patient denied any other issues or complaints. He denied any chest pain shortness of breath constipation diarrhea fever fatigue chills. - Related Data Home Medications Medication Instructions Recorded Confirmed Omeprazole 20 mg PO BID 07/10/18 09/15/20 LORazepam [Ativan] 1 mg PO QID PRN 08/13/18 09/15/20 Amitriptyline HCl [Elavil] 150 mg PO HS 10/08/19 09/15/20 Baclofen [Lioresal] 20 mg PO QID PRN 10/08/19 09/15/20 Ondansetron Odt [Zofran ODT] 8 mg PO Q8H PRN 02/19/20 09/15/20 Ubidecarenone [Co Q-10] 300 mg PO DAILY 05/05/20 09/15/20 HYDROcodone/APAP 10-325MG [[place] 1 tab PO TID PRN 09/15/20 09/15/20 10-325] Allergies Allergy/AdvReac Type Severity Reaction Status Date / Time No Known Allergies Allergy Verified 09/15/20 09:24 Review of Systems ROS Statement: Those systems with pertinent positive or pertinent negative responses have been documented in the HPI. ROS Other: All systems not noted in ROS Statement are negative. Past Medical History Past Medical History: Asthma, GERD/Reflux Additional Past Medical History / Comment(s): cyclic vomiting syndrome, numbness/tingling bilateral feet when vomiting, low back pain/ruptured discs, occupational asthma, History of Any Multi-Drug Resistant Organisms: None Reported Past Surgical History: Adenoidectomy, Appendectomy, Cholecystectomy, Orthopedic Surgery, Tonsillectomy Additional Past Surgical History / Comment(s): EGD, ORIF bilateral ankles, Past Anesthesia/Blood Transfusion Reactions: No Reported Reaction Past Psychological History: Anxiety Smoking Status: Never smoker Past Alcohol Use History: None Reported Past Drug Use History: Marijuana - Past Family History Father Family Medical History: No Reported History Mother Family Medical History: Diabetes Mellitus Additional Family Medical History / Comment(s): severe food allergies General Exam Limitations: no limitations General appearance: alert, in no apparent distress Head exam: Present: atraumatic, normocephalic, normal inspection Eye exam: Present: normal appearance, PERRL, EOMI. Absent: scleral icterus, conjunctival injection, periorbital swelling Neck exam: Present: normal inspection Respiratory exam: Present: normal lung sounds bilaterally. Absent: respiratory distress, wheezes, rales, rhonchi, stridor Cardiovascular Exam: Present: regular rate, normal rhythm, normal heart sounds. Absent: systolic murmur, diastolic murmur, rubs, gallop, clicks GI/Abdominal exam: Present: soft, normal bowel sounds. Absent: distended, tenderness, guarding, rebound, rigid Extremities exam: Present: normal inspection, full ROM, normal capillary refill. Absent: tenderness, pedal edema, joint swelling, calf tenderness Neurological exam: Present: alert, oriented X3 Psychiatric exam: Present: normal affect, normal mood Skin exam: Present: warm, dry, intact, normal color. Absent: rash Course Vital Signs 10/19/20 10/19/20 11:27 14:08 Temperature 98.4 F Pulse Rate 105 H 91 Respiratory 18 18 Rate Blood Pressure 148/95 144/110 O2 Sat by Pulse 99 100 Oximetry Medical Decision Making - Medical Decision Making 35-year-old male complaining of abdominal pain nausea and vomiting after smoking marijuana this morning. Labs, 1 L normal saline, 4 monos morphine, 4 mg Zofran, KUB, 1 L normal saline ordered. Labs unremarkable, white blood cells 15 most likely reactive from vomiting. Patient still complaining of pain, capsacin cream ordered. Patient refused the cream. Patient told nurse he refused the x-ray imaging. Case discussed with Dr. Anderson, patient discharge home after more pain medication and nausea medication administered. - Lab Data Result diagrams: 10/19/20 12:14 10/19/20 12:14 Lab Results 10/19/20 10/19/20 Range/Units 12:14 12:14 WBC 15.0 H (3.8-10.6) k/uL RBC 5.11 (4.30-5.90) m/uL Hgb 15.7 (13.0-17.5) gm/dL Hct 44.7 (39.0-53.0) % MCV 87.5 (80.0-100.0) fL MCH 30.7 (25.0-35.0) pg MCHC 35.1 (31.0-37.0) g/dL RDW 12.5 (11.5-15.5) % Plt Count 356 (150-450) k/uL MPV 7.9 Neutrophils % 88 % Lymphocytes % 7 % Monocytes % 4 % Eosinophils % 1 % Basophils % 0 % Neutrophils # 13.2 H (1.3-7.7) k/uL Lymphocytes # 1.0 (1.0-4.8) k/uL Monocytes # 0.6 (0-1.0) k/uL Eosinophils # 0.1 (0-0.7) k/uL Basophils # 0.0 (0-0.2) k/uL Sodium 141 (137-145) mmol/L Potassium 4.6 (3.5-5.1) mmol/L Chloride 107 (98-107) mmol/L Carbon Dioxide 23 (22-30) mmol/L Anion Gap 11 mmol/L BUN 13 (9-20) mg/dL Creatinine 0.84 (0.66-1.25) mg/dL Est GFR (CKD-EPI)AfAm >90 (>60 ml/min/1.73 sqM) Est GFR (CKD-EPI)NonAf >90 (>60 ml/min/1.73 sqM) Glucose 129 H (74-99) mg/dL Calcium 10.7 H (8.4-10.2) mg/dL Total Bilirubin 0.8 (0.2-1.3) mg/dL AST 32 (17-59) U/L ALT 35 (4-49) U/L Alkaline Phosphatase 74 (38-126) U/L Total Protein 8.1 (6.3-8.2) g/dL Albumin 5.1 H (3.5-5.0) g/dL Amylase 57 (30-110) U/L Lipase 60 (23-300) U/L Disposition Clinical Impression: Leukocytosis, Intractable nausea and vomiting, Abdominal pain, Drug-induced nausea and vomiting, Drug-seeking behavior Disposition: HOME SELF-CARE Condition: Stable Instructions (If sedation given, give patient instructions): Acute Nausea and Vomiting (ED), Abdominal Pain (ED) Additional Instructions: Please return to the Emergency Department if symptoms worsen or any other concerns. Follow-up with primary care 1-2 days. Cease marijuana use. Is patient prescribed a controlled substance at d/c from ED?: No Referrals: Mary Dougherty MD [Primary Care Provider] - 1-2 days Time of Disposition: 14:17
[2020-10-19 12:21] LABS: Basophils % (A) 0 %; Eosinophils # (A) 0.1 k/uL (0-0.7); Eosinophils % (A) 1 %; HCT 44.7 % (39.0-53.0); HGB 15.7 gm/dL (13.0-17.5); Lymphocytes % (A) 7 %; MCH 30.7 pg (25.0-35.0); MCHC 35.1 g/dL (31.0-37.0); MCV 87.5 fL (80.0-100.0); Mean Platelet Volume 7.9; Monocytes # (A) 0.6 k/uL (0-1.0); Monocytes % (A) 4 %; Neutrophils # (A) 13.2 k/uL (1.3-7.7); Neutrophils % (A) 88 %; Platelet Count 356 k/uL (150-450); RBC 5.11 m/uL (4.30-5.90); RDW 12.5 % (11.5-15.5)
[2020-10-19 12:45] LABS: African American GFR (CKD) >90 (>60 ml/min/1.73 sqM); Anion Gap 11 mmol/L; Blood Urea Nitrogen 13 mg/dL (9-20); Carbon Dioxide 23 mmol/L (22-30); Chloride 107 mmol/L (98-107); Glucose 129 mg/dL (74-99); Sodium 141 mmol/L (137-145)
[2020-10-19 12:46] LABS: ALT 35 U/L (4-49); Albumin 5.1 g/dL (3.5-5.0); Amylase 57 U/L (30-110); Calcium 10.7 mg/dL (8.4-10.2); Lipase 60 U/L (23-300); Non-African American GFR(CKD) >90 (>60 ml/min/1.73 sqM); Total Bilirubin 0.8 mg/dL (0.2-1.3); Total Protein 8.1 g/dL (6.3-8.2)
[2020-10-19 12:48] LABS: AST 32 U/L (17-59); Alkaline Phosphatase 74 U/L (38-126); Potassium 4.6 mmol/L (3.5-5.1)
[2020-10-19] MEDS ORDERED: CAPSAICIN 0.025% CREAM 60 GM TUBE TOPICAL STA (13:13)
[2020-10-19] MEDS ORDERED: ONDANSETRON 4 MG ODT STARTER PACK 2 TAB BTL PO STA (13:42)
[2020-10-19] MEDS ORDERED: PANTOPRAZOLE 40 MG/10 ML VIAL IVP STA (13:55)
[2020-10-19] MEDS ORDERED: PROMETHAZINE 25 MG TAB PO STA (13:56)
[2020-10-19 14:30] VITALS: BP 153/93; PULSE 77
== END 2020-10-19 14:38 | disposition home or self-care (01) ==
LOC: EC 10:55
DX: D72.829 Elevated white blood cell count, unspecified (principal); R11.2 Nausea with vomiting, unspecified; R10.9 Unspecified abdominal pain; Z76.5 Malingerer [conscious simulation]; J45.909 Unspecified asthma, uncomplicated; K21.9 Gastro-esophageal reflux disease without esophagitis; F41.9 Anxiety disorder, unspecified; F12.90 Cannabis use, unspecified, uncomplicated; Z90.49 Acquired absence of other specified parts of digestive tract
CPT/HCPCS: 36415; 80053; 82150; 83690; 85025; 99284; 96374; 96375 ×3; 96376; 96361 ×2; J1200; J2405; J1170; S0119; C9113

== ENCOUNTER 2020-10-19 17:49 | Emergency (ER) | payer OTHER ==
[2020-10-19 18:13] VITALS: RESP 18
[2020-10-19] MEDS ORDERED: diphenhydrAMINE 50 MG/ML 1 ML VIAL IVP STA (19:12)
[2020-10-19] MEDS ORDERED: HYDROmorphone 1 MG/ML 1 ML SYRINGE IVP STA ×2 (19:12→20:27)
[2020-10-19] MEDS ORDERED: SODIUM CHLORIDE 0.9% 1,000 ML IV STA (19:12)
[2020-10-19] MEDS ORDERED: SODIUM CHLORIDE 0.9% 500 ML 500 ML IV STA (19:12)
[2020-10-19] MEDS ORDERED: FAMOTIDINE 20 MG/2 ML VIAL IV STA (19:12)
[2020-10-19] MEDS ORDERED: METOCLOPRAMIDE 5 MG/ML 2 ML VIAL IVP STA (19:12)
--- NOTE | 2020-10-19 19:17 | ED ---
Nausea/Vomiting/Diarrhea HPI - General Chief complaint: Nausea/Vomiting/Diarrhea Stated complaint: vomiting/abd pain Time Seen by Provider: 10/19/20 18:57 Source: patient Mode of arrival: ambulatory Limitations: no limitations - History of Present Illness Initial comments: 35 year-old male patient with history of cyclic vomiting syndrome presents to the emergency department for evaluation of upper abdominal pain and vomiting. States symptoms started around 5AM. States he was seen and evaluated here earlier today. States symptoms did not improve. He vomited up medication he tried to take at home. Denies any hematemesis, hematochezia, or melena. Denies fever or chills. States symptoms are consistent with his usual pain and vomiting pattern. Patient denies any recent rash, cough, shortness of breath, chest pain, diarrhea, constipation, back pain, numbness, tingling, dizziness, weakness, hematuria, dysuria, urinary urgency, urinary frequency, headache, visual changes, or any other complaints. - Related Data Home Medications Medication Instructions Recorded Confirmed Omeprazole 20 mg PO DAILY 07/10/18 10/19/20 LORazepam [Ativan] 1 mg PO QID PRN 08/13/18 10/19/20 Amitriptyline HCl [Elavil] 150 mg PO HS 10/08/19 10/19/20 Baclofen [Lioresal] 20 mg PO QID PRN 10/08/19 10/19/20 Ondansetron Odt [Zofran ODT] 8 mg PO Q8H PRN 02/19/20 10/19/20 Ubidecarenone [Co Q-10] 300 mg PO DAILY 05/05/20 10/19/20 HYDROcodone/APAP 10-325MG [[place] 1 tab PO TID PRN 09/15/20 10/19/20 10-325] Allergies Allergy/AdvReac Type Severity Reaction Status Date / Time No Known Allergies Allergy Verified 10/19/20 18:12 Review of Systems ROS Statement: Those systems with pertinent positive or pertinent negative responses have been documented in the HPI. ROS Other: All systems not noted in ROS Statement are negative. Past Medical History Past Medical History: Asthma, GERD/Reflux Additional Past Medical History / Comment(s): cyclic vomiting syndrome, numbness/tingling bilateral feet when vomiting, low back pain/ruptured discs, occupational asthma, History of Any Multi-Drug Resistant Organisms: None Reported Past Surgical History: Adenoidectomy, Appendectomy, Cholecystectomy, Orthopedic Surgery, Tonsillectomy Additional Past Surgical History / Comment(s): EGD, ORIF bilateral ankles, Past Anesthesia/Blood Transfusion Reactions: No Reported Reaction Past Psychological History: Anxiety Smoking Status: Never smoker Past Alcohol Use History: None Reported Past Drug Use History: Marijuana - Past Family History Father Family Medical History: No Reported History Mother Family Medical History: Diabetes Mellitus Additional Family Medical History / Comment(s): severe food allergies General Exam Limitations: no limitations General appearance: alert, in no apparent distress, other (This is a well- developed, well-nourished adult male patient in mild distress related to pain. Vital signs upon presentation are temperature 97.0F, pulse 110, respirations 18, blood pressure 139/87, pulse ox 99% on room air.) Eye exam: Present: normal appearance, PERRL, EOMI. Absent: scleral icterus, conjunctival injection, periorbital swelling ENT exam: Present: normal exam, normal oropharynx, mucous membranes moist Respiratory exam: Present: normal lung sounds bilaterally. Absent: respiratory distress, wheezes, rales, rhonchi, stridor Cardiovascular Exam: Present: normal rhythm, tachycardia, normal heart sounds. Absent: systolic murmur, diastolic murmur, rubs, gallop, clicks GI/Abdominal exam: Present: soft, tenderness (Upper abdominal tenderness), normal bowel sounds. Absent: distended, guarding, rebound, rigid Neurological exam: Present: alert, oriented X3, CN II-XII intact Psychiatric exam: Present: normal affect, normal mood Skin exam: Present: warm, dry, intact, normal color. Absent: rash Course Vital Signs 10/19/20 10/19/20 18:12 20:21 Temperature 97 F L 97.9 F Pulse Rate 110 H 105 H Respiratory 18 18 Rate Blood Pressure 139/87 99/63 O2 Sat by Pulse 99 99 Oximetry Medical Decision Making - Medical Decision Making 35 year-old male patient with history of cyclic vomiting syndrome and chronic abdominal pain presents for persistent pain and vomiting. Physical exam reveals upper abdominal tenderness. Patient was actively vomiting during my physical exam. He is afebrile. Labs reviewed and showed elevated WBC count. Overall unremarkable. He was given IV fluids, nausea medication, pain medication. Upon reevaluation he is resting comfortably in bed. States he is feeling better the pain did start to increase somewhat. I did discuss findings and results with him. He'll be given additional dose of pain medication discharge to follow-up with his primary care physician for recheck in 1-2 days. Return parameters were discussed in detail. He verbalizes understanding and agrees with this plan. Case discussed in my attending Dr. Anderson. - Lab Data Result diagrams: 10/19/20 19:18 10/19/20 19:18 Lab Results 10/19/20 10/19/20 Range/Units 19:18 19:18 WBC 14.7 H (3.8-10.6) k/uL RBC 5.33 (4.30-5.90) m/uL Hgb 16.3 (13.0-17.5) gm/dL Hct 46.9 (39.0-53.0) % MCV 88.1 (80.0-100.0) fL MCH 30.6 (25.0-35.0) pg MCHC 34.7 (31.0-37.0) g/dL RDW 12.6 (11.5-15.5) % Plt Count 396 (150-450) k/uL MPV 8.0 Neutrophils % 88 % Lymphocytes % 9 % Monocytes % 2 % Eosinophils % 0 % Basophils % 0 % Neutrophils # 13.0 H (1.3-7.7) k/uL Lymphocytes # 1.3 (1.0-4.8) k/uL Monocytes # 0.3 (0-1.0) k/uL Eosinophils # 0.1 (0-0.7) k/uL Basophils # 0.0 (0-0.2) k/uL Sodium 138 (137-145) mmol/L Potassium 4.3 (3.5-5.1) mmol/L Chloride 101 (98-107) mmol/L Carbon Dioxide 22 (22-30) mmol/L Anion Gap 15 mmol/L BUN 11 (9-20) mg/dL Creatinine 0.78 (0.66-1.25) mg/dL Est GFR (CKD-EPI)AfAm >90 (>60 ml/min/1.73 sqM) Est GFR (CKD-EPI)NonAf >90 (>60 ml/min/1.73 sqM) Glucose 125 H (74-99) mg/dL Calcium 10.9 H (8.4-10.2) mg/dL Total Bilirubin 1.0 (0.2-1.3) mg/dL AST 31 (17-59) U/L ALT 35 (4-49) U/L Alkaline Phosphatase 76 (38-126) U/L Total Protein 8.8 H (6.3-8.2) g/dL Albumin 5.6 H (3.5-5.0) g/dL Lipase 50 (23-300) U/L Disposition Clinical Impression: Abdominal pain, Vomiting Disposition: HOME SELF-CARE Condition: Good Instructions (If sedation given, give patient instructions): Acute Nausea and Vomiting (ED), Abdominal Pain (ED) Additional Instructions: Start with clear liquid diet and advance as tolerated. Follow-up through primary care physician for recheck in 1-2 days. Return to the emergency department for any new, worsening, or concerning symptoms. Is patient prescribed a controlled substance at d/c from ED?: No Referrals: Mary Dougherty MD [Primary Care Provider] - 1-2 days Time of Disposition: 20:28
[2020-10-19 19:43] LABS: Basophils % (A) 0 %; Eosinophils # (A) 0.1 k/uL (0-0.7); Eosinophils % (A) 0 %; HCT 46.9 % (39.0-53.0); HGB 16.3 gm/dL (13.0-17.5); Lymphocytes # (A) 1.3 k/uL (1.0-4.8); Lymphocytes % (A) 9 %; MCH 30.6 pg (25.0-35.0); MCHC 34.7 g/dL (31.0-37.0); MCV 88.1 fL (80.0-100.0); Monocytes # (A) 0.3 k/uL (0-1.0); Monocytes % (A) 2 %; Neutrophils % (A) 88 %; Platelet Count 396 k/uL (150-450); RBC 5.33 m/uL (4.30-5.90); RDW 12.6 % (11.5-15.5); WBC 14.7 k/uL (3.8-10.6)
[2020-10-19 19:54] LABS: ALT 35 U/L (4-49); AST 31 U/L (17-59); African American GFR (CKD) >90 (>60 ml/min/1.73 sqM); Albumin 5.6 g/dL (3.5-5.0); Alkaline Phosphatase 76 U/L (38-126); Anion Gap 15 mmol/L; Blood Urea Nitrogen 11 mg/dL (9-20); Calcium 10.9 mg/dL (8.4-10.2); Carbon Dioxide 22 mmol/L (22-30); Chloride 101 mmol/L (98-107); Glucose 125 mg/dL (74-99); Lipase 50 U/L (23-300); Non-African American GFR(CKD) >90 (>60 ml/min/1.73 sqM); Potassium 4.3 mmol/L (3.5-5.1); Sodium 138 mmol/L (137-145); Total Protein 8.8 g/dL (6.3-8.2)
[2020-10-19 20:24] VITALS: BP 99/63; PULSE 105; TEMP 97.9
== END 2020-10-19 20:37 | disposition home or self-care (01) ==
LOC: EC 17:49
DX: R10.10 Upper abdominal pain, unspecified (principal); R11.10 Vomiting, unspecified; J45.909 Unspecified asthma, uncomplicated; K21.9 Gastro-esophageal reflux disease without esophagitis; F41.9 Anxiety disorder, unspecified; F12.90 Cannabis use, unspecified, uncomplicated; Z90.49 Acquired absence of other specified parts of digestive tract; Z90.89 Acquired absence of other organs
CPT/HCPCS: 99284; 96374; 96375 ×3; 96376; 96361; 80053; 83690; 85025; J1200; J2765; J1170

== ENCOUNTER 2020-12-10 21:56 | Emergency (ER) | payer OTHER ==
[2020-12-11] MEDS ORDERED: ONDANSETRON 4 MG/2 ML VIAL IVP STA (00:09)
[2020-12-11] MEDS ORDERED: SODIUM CHLORIDE 0.9% 1,000 ML IV STA (00:09)
[2020-12-11] MEDS ORDERED: HYDROmorphone 1 MG/ML 1 ML SYRINGE IVP STA ×2 (00:09→02:32)
[2020-12-11] MEDS ORDERED: SODIUM CHLORIDE 0.9% 500 ML 500 ML IV STA (00:09)
[2020-12-11] MEDS ORDERED: diphenhydrAMINE 50 MG/ML 1 ML VIAL IVP STA ×2 (00:09→03:23)
[2020-12-11] MEDS ORDERED: FAMOTIDINE 20 MG/2 ML VIAL IV STA (00:13)
[2020-12-11] MEDS ORDERED: LORazepam 2 MG/ML INJ IV STA (00:15)
[2020-12-11 01:06] LABS: Basophils % (A) 0 %; Eosinophils % (A) 0 %; HCT 45.1 % (39.0-53.0); HGB 15.1 gm/dL (13.0-17.5); Lymphocytes % (A) 7 %; MCH 29.5 pg (25.0-35.0); MCHC 33.5 g/dL (31.0-37.0); MCV 88.1 fL (80.0-100.0); Mean Platelet Volume 7.3; Monocytes # (A) 0.4 k/uL (0-1.0); Monocytes % (A) 3 %; Neutrophils # (A) 13.4 k/uL (1.3-7.7); Neutrophils % (A) 89 %; Platelet Count 353 k/uL (150-450); RBC 5.12 m/uL (4.30-5.90); RDW 12.4 % (11.5-15.5)
[2020-12-11 01:43] LABS: ALT 29 U/L (4-49); AST 26 U/L (17-59); African American GFR (CKD) >90 (>60 ml/min/1.73 sqM); Albumin 5.4 g/dL (3.5-5.0); Alkaline Phosphatase 71 U/L (38-126); Anion Gap 14 mmol/L; Blood Urea Nitrogen 15 mg/dL (9-20); Calcium 10.3 mg/dL (8.4-10.2); Carbon Dioxide 22 mmol/L (22-30); Chloride 101 mmol/L (98-107); Glucose 111 mg/dL (74-99); Lipase 57 U/L (23-300); Non-African American GFR(CKD) >90 (>60 ml/min/1.73 sqM); Sodium 137 mmol/L (137-145); Total Bilirubin 1.4 mg/dL (0.2-1.3); Total Protein 8.3 g/dL (6.3-8.2)
[2020-12-11] MEDS ORDERED: METOCLOPRAMIDE 5 MG/ML 2 ML VIAL IVP STA (02:32)
[2020-12-11 02:33] VITALS: RESP 18
--- NOTE | 2020-12-11 03:01 | ED ---
General Adult HPI - General Chief complaint: Nausea/Vomiting/Diarrhea Stated complaint: Abd Pain,Vomiting Time Seen by Provider: 12/10/20 23:52 Source: patient Mode of arrival: ambulatory Limitations: no limitations - History of Present Illness Initial comments: 35-year-old male patient presented to the emergency department today for evaluation of upper abdominal pain and vomiting. Patient does have history of cyclic vomiting syndrome and his symptoms are consistent with his usual pattern. He denies any fever or chills. Denies hematochezia, melena, or hematemesis. Denies any recent travel or sick contacts. Did not take any medications prior to coming in. Patient denies any recent rash, cough, shortness of breath, chest pain, back pain, numbness, tingling, dizziness, weakness, hematuria, dysuria, urinary urgency, urinary frequency, headache, visual changes, or any other complaints. - Related Data Home Medications Medication Instructions Recorded Confirmed Omeprazole 20 mg PO DAILY 07/10/18 10/19/20 LORazepam [Ativan] 1 mg PO QID PRN 08/13/18 10/19/20 Amitriptyline HCl [Elavil] 150 mg PO HS 10/08/19 10/19/20 Baclofen [Lioresal] 20 mg PO QID PRN 10/08/19 10/19/20 Ondansetron Odt [Zofran ODT] 8 mg PO Q8H PRN 02/19/20 10/19/20 Ubidecarenone [Co Q-10] 300 mg PO DAILY 05/05/20 10/19/20 HYDROcodone/APAP 10-325MG [[place] 1 tab PO TID PRN 09/15/20 10/19/20 10-325] Allergies Allergy/AdvReac Type Severity Reaction Status Date / Time No Known Allergies Allergy Verified 12/10/20 22:20 Review of Systems ROS Statement: Those systems with pertinent positive or pertinent negative responses have been documented in the HPI. ROS Other: All systems not noted in ROS Statement are negative. Past Medical History Past Medical History: Asthma, GERD/Reflux Additional Past Medical History / Comment(s): cyclic vomiting syndrome, numbness/tingling bilateral feet when vomiting, low back pain/ruptured discs, occupational asthma, History of Any Multi-Drug Resistant Organisms: None Reported Past Surgical History: Adenoidectomy, Appendectomy, Cholecystectomy, Orthopedic Surgery, Tonsillectomy Additional Past Surgical History / Comment(s): EGD, ORIF bilateral ankles, Past Anesthesia/Blood Transfusion Reactions: No Reported Reaction Past Psychological History: Anxiety Smoking Status: Never smoker Past Alcohol Use History: None Reported Past Drug Use History: Marijuana - Past Family History Father Family Medical History: No Reported History Mother Family Medical History: Diabetes Mellitus Additional Family Medical History / Comment(s): severe food allergies General Exam Limitations: no limitations General appearance: alert, in no apparent distress, other (This is a well- developed, well-nourished adult male patient in no acute distress. ) ENT exam: Present: normal exam, normal oropharynx, mucous membranes moist Respiratory exam: Present: normal lung sounds bilaterally. Absent: respiratory distress, wheezes, rales, rhonchi, stridor Cardiovascular Exam: Present: regular rate, normal rhythm, normal heart sounds. Absent: systolic murmur, diastolic murmur, rubs, gallop, clicks GI/Abdominal exam: Present: soft, tenderness (upper abdominal pain), normal bowel sounds. Absent: distended, guarding, rebound, rigid Neurological exam: Present: alert, oriented X3, CN II-XII intact Psychiatric exam: Present: normal affect, normal mood Skin exam: Present: warm, dry, intact, normal color. Absent: rash Course Vital Signs 12/10/20 12/11/20 22:16 02:31 Temperature 97.2 F L Pulse Rate 99 93 Respiratory 20 18 Rate Blood Pressure 147/79 149/105 O2 Sat by Pulse 99 100 Oximetry Medical Decision Making - Medical Decision Making 35-year-old male patient presented to the emergency department today for evaluation of vomiting and abdominal pain. Physical examination did reveal epigastric tenderness. Labs are reviewed did show mild elevation in white blood cell count which is most likely reactive due to vomiting. 4+ ketones in the urine. He is given several different medications, IV fluids, upon reevaluation does have some improvement symptoms. Discharge and follow-up with primary care physician for recheck in 1-2 days. Return parameters were discussed in detail. She verbalizes understanding and agrees with this plan. Case discussed with my attending Dr. Hamilton. - Lab Data Result diagrams: 12/11/20 01:02 12/11/20 01:02 Lab Results 11/06/2612/11/20 12/11/20 Range/Units 01:02 01:02 02:31 WBC 15.0 H (3.8-10.6) k/uL RBC 5.12 (4.30-5.90) m/uL Hgb 15.1 (13.0-17.5) gm/dL Hct 45.1 (39.0-53.0) % MCV 88.1 (80.0-100.0) fL MCH 29.5 (25.0-35.0) pg MCHC 33.5 (31.0-37.0) g/dL RDW 12.4 (11.5-15.5) % Plt Count 353 (150-450) k/uL MPV 7.3 Neutrophils % 89 % Lymphocytes % 7 % Monocytes % 3 % Eosinophils % 0 % Basophils % 0 % Neutrophils # 13.4 H (1.3-7.7) k/uL Lymphocytes # 1.0 (1.0-4.8) k/uL Monocytes # 0.4 (0-1.0) k/uL Eosinophils # 0.0 (0-0.7) k/uL Basophils # 0.0 (0-0.2) k/uL Sodium 137 (137-145) mmol/L Potassium 4.0 (3.5-5.1) mmol/L Chloride 101 (98-107) mmol/L Carbon Dioxide 22 (22-30) mmol/L Anion Gap 14 mmol/L BUN 15 (9-20) mg/dL Creatinine 0.74 (0.66-1.25) mg/dL Est GFR (CKD-EPI)AfAm >90 (>60 ml/min/1.73 sqM) Est GFR (CKD-EPI)NonAf >90 (>60 ml/min/1.73 sqM) Glucose 111 H (74-99) mg/dL Calcium 10.3 H (8.4-10.2) mg/dL Total Bilirubin 1.4 H (0.2-1.3) mg/dL AST 26 (17-59) U/L ALT 29 (4-49) U/L Alkaline Phosphatase 71 (38-126) U/L Total Protein 8.3 H (6.3-8.2) g/dL Albumin 5.4 H (3.5-5.0) g/dL Lipase 57 (23-300) U/L Urine Color Yellow Urine Appearance Clear (Clear) Urine pH 5.5 (5.0-8.0) Ur Specific [place] 1.034 (1.001-1.035) Urine Protein 1+ H (Negative) Urine Glucose (UA) Negative (Negative) Urine Ketones 4+ H (Negative) Urine Blood Trace H (Negative) Urine Nitrite Negative (Negative) Urine Bilirubin Negative (Negative) Urine Urobilinogen 2.0 (<2.0) mg/dL Ur Leukocyte Esterase Negative (Negative) Urine RBC 1 (0-5) /hpf Urine WBC 1 (0-5) /hpf Ur Squamous Epith Cells <1 (0-4) /hpf Hyaline Casts 3 H (0-2) /lpf Urine Mucus Moderate H (None) /hpf Disposition Clinical Impression: Vomiting, Abdominal pain Disposition: HOME SELF-CARE Condition: Good Instructions (If sedation given, give patient instructions): Acute Nausea and Vomiting (ED), Abdominal Pain (ED) Additional Instructions: Follow-up with your primary care physician for recheck in 1-2 days. Return to the emergency department for any new, worsening, or concerning symptoms. Is patient prescribed a controlled substance at d/c from ED?: No Referrals: Mary Dougherty MD [Primary Care Provider] - 1-2 days Time of Disposition: 03:57
[2020-12-11 03:02] LABS: Appearance,Urine Clear (Clear); Bilirubin,Urine Negative (Negative); Blood,Urine Trace (Negative); Color,Urine Yellow; Glucose,Urine (UA) Negative (Negative); Hyaline Casts,Urine 3 /lpf (0-2); Ketones,Urine 4+ (Negative); Leukocyte Esterase,Urine Negative (Negative); Mucus,Urine Moderate /hpf; Nitrite,Urine Negative (Negative); PH, Urine 5.5 (5.0-8.0); Protein,Urine 1+ (Negative); RBC,Urine 1 /hpf (0-5); Specific Gravity,Urine 1.034 (1.001-1.035); Squamous Epithelial Cell,Urine <1 /hpf (0-4); WBC,Urine 1 /hpf (0-5)
[2020-12-11] MEDS ORDERED: PROCHLORPERAZINE INJ 10 MG/2 ML VIAL IVP STA (03:23)
[2020-12-11 04:09] VITALS: BP 142/99; PULSE 94; TEMP 98.9
== END 2020-12-11 04:09 | disposition home or self-care (01) ==
LOC: EC 21:56
DX: R10.10 Upper abdominal pain, unspecified (principal); R11.10 Vomiting, unspecified; J45.909 Unspecified asthma, uncomplicated; K21.9 Gastro-esophageal reflux disease without esophagitis; F12.90 Cannabis use, unspecified, uncomplicated; F41.9 Anxiety disorder, unspecified; Z79.899 Other long term (current) drug therapy; Z90.49 Acquired absence of other specified parts of digestive tract; Z83.3 Family history of diabetes mellitus
CPT/HCPCS: 36415; 80053; 83690; 85025; 81001; 96374; 96375 ×6; 96376 ×2; 96361; 99284; J2060; J1200; J0780; J2765; J2405; J1170

== ENCOUNTER 2020-12-11 11:18 | Emergency (ER) | payer OTHER ==
[2020-12-11 12:37] VITALS: BP 126/79; PULSE 97; RESP 18; TEMP 98
[2020-12-11] MEDS ORDERED: SODIUM CHLORIDE 0.9% 1,000 ML IV STA ×2 (12:53)
[2020-12-11] MEDS ORDERED: ONDANSETRON 4 MG/2 ML VIAL IVP STA (12:53)
[2020-12-11] MEDS ORDERED: PANTOPRAZOLE 40 MG/10 ML VIAL IVP STA (12:53)
[2020-12-11] MEDS ORDERED: HALOPERIDOL LACTATE 5 MG/ML 1 ML VIAL IVP STA (12:56)
--- NOTE | 2020-12-11 13:28 | ED ---
Abdominal Pain HPI - General Chief Complaint: Abdominal Pain Stated Complaint: Revisit,Abd Pain Time Seen by Provider: 12/11/20 12:43 Source: patient Mode of arrival: ambulatory Limitations: no limitations - History of Present Illness Initial Comments: This 35-year-old male presents complaining of midepigastric abdominal pain as well as nausea and vomiting. He states that he came on around midnight. He has had several episodes of vomiting but denies any diarrhea, fevers, or chills. He states that he has had multiple previous similar incidents. He is unsure of the exact cause but has been told that he has cyclic vomiting syndrome in the past. He was just seen in the emergency department earlier today for the same. At that time he received multiple medications for his symptomatology and it seemed to improve. He states that he went home and fell asleep and when he woke up the pain recurred. He does utilize marijuana on a daily basis and is counseled that he should stop his this could be marijuana hyperemesis syndrome. He states that he has had full workup including EGD, colonoscopy, multiple scans, and laboratory work. He is followed up with gastroenterology and has been seen at multiple hospitals for this in the past. This is very similar to his previous episodes. No other complaints or modifying factors. - Related Data Home Medications Medication Instructions Recorded Confirmed Omeprazole 20 mg PO DAILY 07/10/18 12/11/20 LORazepam [Ativan] 1 mg PO QID PRN 08/13/18 12/11/20 Amitriptyline HCl [Elavil] 150 mg PO HS 10/08/19 12/11/20 Baclofen [Lioresal] 20 mg PO QID PRN 10/08/19 12/11/20 Ondansetron Odt [Zofran ODT] 8 mg PO Q8H PRN 02/19/20 12/11/20 Ubidecarenone [Co Q-10] 300 mg PO DAILY 05/05/20 12/11/20 HYDROcodone/APAP 10-325MG [[place] 1 tab PO TID PRN 09/15/20 12/11/20 10-325] Allergies Allergy/AdvReac Type Severity Reaction Status Date / Time haloperidol [From Haldol] AdvReac Hallucinati Verified 12/11/20 13:34 ons Review of Systems ROS Statement: Those systems with pertinent positive or pertinent negative responses have been documented in the HPI. ROS Other: All systems not noted in ROS Statement are negative. Past Medical History Past Medical History: Asthma, GERD/Reflux Additional Past Medical History / Comment(s): cyclic vomiting syndrome, numbness/tingling bilateral feet when vomiting, low back pain/ruptured discs, occupational asthma, History of Any Multi-Drug Resistant Organisms: None Reported Past Surgical History: Adenoidectomy, Appendectomy, Cholecystectomy, Orthopedic Surgery, Tonsillectomy Additional Past Surgical History / Comment(s): EGD, ORIF bilateral ankles, Past Anesthesia/Blood Transfusion Reactions: No Reported Reaction Past Psychological History: Anxiety Smoking Status: Never smoker Past Alcohol Use History: None Reported Past Drug Use History: Marijuana - Past Family History Father Family Medical History: No Reported History Mother Family Medical History: Diabetes Mellitus Additional Family Medical History / Comment(s): severe food allergies General Exam - General Exam Comments Initial Comments: GENERAL: The patient is well nourished and well hydrated. VITAL SIGNS: Heart rate, blood pressure, respiratory rate reviewed as recorded in nurse's notes. EYES: Pupils are round and reactive. Extraocular movements are intact. No conjunctival / lid redness or swelling. ENT: No external evidence of injury, swelling, or ecchymosis. Airway is patent. Throat is clear. NECK: Nontender. No swelling or evidence of injury. No subcutaneous emphysema. Trachea is midline. No thyroid mass. HEART: Regular rate and rhythm. Good peripheral pulses. LUNGS/CHEST: Breath sounds clear and equal bilaterally. No rales, rhonchi, or wheezes. No ecchymosis, subcutaneous emphysema, or tenderness. ABDOMEN: Abdomen soft with tenderness noted to the midepigastric region. No palpable masses or organomegaly. No peritoneal signs. No abdominal wall swelling or ecchymosis. EXTREMITIES: No extremity tenderness. Normal muscle tone and function. No thoracolumbar tenderness. NEUROLOGIC: Sensation is grossly intact. Cranial nerve exam reveals face is symmetrical, tongue is midline, speech is clear. SKIN: No abrasions or ecchymosis is noted. No induration or masses noted. PSYCHIATRIC: Alert and oriented. Appropriate behavior and judgment. Limitations: no limitations Course Vital Signs 12/11/20 12:36 Temperature 98.0 F Pulse Rate 97 Respiratory 18 Rate Blood Pressure 126/79 O2 Sat by Pulse 100 Oximetry Medical Decision Making - Medical Decision Making The patient was seen and examined. All diagnostics were reviewed. IV is established and he is hydrated. He also receives Zofran and Haldol and Protonix intravenously. Old records were reviewed. He was just seen earlier today. He's also been here multiple previous times for similar symptomatology. He was ordered the Haldol as this was not on his ALLERGY list and informed the nurse that he cannot take those that he has adverse reaction to it so this is cancele d. An x-ray was ordered of his abdomen but he refused this as well. He requests narcotics and is not felt as though these are indicated at this time. Laboratory is reviewed and is unremarkable. The left AGAINST MEDICAL ADVICE prior to my final disposition. Of note, he does have daily marijuana abuse and is felt very likely that he may have marijuana hyperemesis syndrome. Discharge instructions are not given as he left prior to final disposition. - Lab Data Result diagrams: 12/11/20 13:44 12/11/20 13:44 Lab Results 12/11/20 12/11/20 Range/Units 13:44 13:44 WBC 10.8 H (3.8-10.6) k/uL RBC 4.94 (4.30-5.90) m/uL Hgb 15.1 (13.0-17.5) gm/dL Hct 43.4 (39.0-53.0) % MCV 87.8 (80.0-100.0) fL MCH 30.5 (25.0-35.0) pg MCHC 34.7 (31.0-37.0) g/dL RDW 12.3 (11.5-15.5) % Plt Count 365 (150-450) k/uL MPV 7.5 Neutrophils % 81 % Lymphocytes % 13 % Monocytes % 5 % Eosinophils % 0 % Basophils % 0 % Neutrophils # 8.7 H (1.3-7.7) k/uL Lymphocytes # 1.4 (1.0-4.8) k/uL Monocytes # 0.6 (0-1.0) k/uL Eosinophils # 0.0 (0-0.7) k/uL Basophils # 0.0 (0-0.2) k/uL Sodium 137 (137-145) mmol/L Potassium 3.9 (3.5-5.1) mmol/L Chloride 100 (98-107) mmol/L Carbon Dioxide 24 (22-30) mmol/L Anion Gap 13 mmol/L BUN 12 (9-20) mg/dL Creatinine 0.67 (0.66-1.25) mg/dL Est GFR (CKD-EPI)AfAm >90 (>60 ml/min/1.73 sqM) Est GFR (CKD-EPI)NonAf >90 (>60 ml/min/1.73 sqM) Glucose 98 (74-99) mg/dL Calcium 10.6 H (8.4-10.2) mg/dL Total Bilirubin 1.8 H (0.2-1.3) mg/dL AST 22 (17-59) U/L ALT 26 (4-49) U/L Alkaline Phosphatase 69 (38-126) U/L Total Protein 8.1 (6.3-8.2) g/dL Albumin 5.0 (3.5-5.0) g/dL Lipase 52 (23-300) U/L Disposition Clinical Impression: Acute abdominal pain, Nausea and vomiting, Cyclical vomiting, intractable, Cannabis hyperemesis syndrome concurrent with and due to cannabis abuse Disposition: Left Against Medical Advice Condition: Fair Instructions (If sedation given, give patient instructions): Abdominal Pain (ED) Is patient prescribed a controlled substance at d/c from ED?: No Referrals: Mary Dougherty MD [Primary Care Provider] - 1-2 days Time of Disposition: 12:40
[2020-12-11] MEDS ORDERED: KETOROLAC 15 MG/ML 1 ML VIAL IVP STA (13:42)
[2020-12-11 14:05] LABS: ALT 26 U/L (4-49); AST 22 U/L (17-59); African American GFR (CKD) >90 (>60 ml/min/1.73 sqM); Alkaline Phosphatase 69 U/L (38-126); Anion Gap 13 mmol/L; Basophils % (A) 0 %; Blood Urea Nitrogen 12 mg/dL (9-20); Calcium 10.6 mg/dL (8.4-10.2); Carbon Dioxide 24 mmol/L (22-30); Chloride 100 mmol/L (98-107); Eosinophils % (A) 0 %; Glucose 98 mg/dL (74-99); HCT 43.4 % (39.0-53.0); HGB 15.1 gm/dL (13.0-17.5); Lipase 52 U/L (23-300); Lymphocytes # (A) 1.4 k/uL (1.0-4.8); Lymphocytes % (A) 13 %; MCH 30.5 pg (25.0-35.0); MCHC 34.7 g/dL (31.0-37.0); MCV 87.8 fL (80.0-100.0); Mean Platelet Volume 7.5; Monocytes # (A) 0.6 k/uL (0-1.0); Monocytes % (A) 5 %; Neutrophils # (A) 8.7 k/uL (1.3-7.7); Neutrophils % (A) 81 %; Non-African American GFR(CKD) >90 (>60 ml/min/1.73 sqM); Platelet Count 365 k/uL (150-450); Potassium 3.9 mmol/L (3.5-5.1); RBC 4.94 m/uL (4.30-5.90); RDW 12.3 % (11.5-15.5); Sodium 137 mmol/L (137-145); Total Bilirubin 1.8 mg/dL (0.2-1.3); Total Protein 8.1 g/dL (6.3-8.2); WBC 10.8 k/uL (3.8-10.6)
== END 2020-12-11 14:13 | disposition left against medical advice (07) ==
LOC: EC 11:18
DX: R10.13 Epigastric pain (principal); F12.10 Cannabis abuse, uncomplicated; J45.909 Unspecified asthma, uncomplicated; K21.9 Gastro-esophageal reflux disease without esophagitis; Z88.8 Allergy status to other drugs, medicaments and biological substances; Z90.49 Acquired absence of other specified parts of digestive tract; Z79.899 Other long term (current) drug therapy
CPT/HCPCS: 36415; 80053; 83690; 85025; 99284; 96374; 96375; 96361; J1630; J2405; C9113

== ENCOUNTER 2020-12-12 03:58 | Emergency (ER) | payer OTHER ==
[2020-12-12 04:36] VITALS: TEMP 97.6
--- NOTE | 2020-12-12 04:37 | ED ---
Recheck HPI - General Chief Complaint: Abdominal Pain Stated Complaint: Abd Pain Time Seen by Provider: 12/12/20 04:15 Source: patient, RN notes reviewed, old records reviewed Mode of arrival: ambulatory Limitations: no limitations - History of Present Illness Initial Comments: This is a 35-year-old male to the ER for evaluation. Patient presents today for evaluation regards to history of nausea vomiting cyclic vomiting syndrome severe pain. Diffuse generalized body pain. History of same multiple admissions for same and no recent change in symptoms. No fever shortness of breath no diarrhea MD Complaint: other (Nausea vomiting abdominal pain and not feeling well) -: year(s) Returns Today for: persistent/worsening pain related to initial visit Symptoms Since Prior Visit: worsening pain Context: ran out of medication Associated Symptoms: malaise, nausea Treatments Prior to Arrival: Given Pain Meds on - Related Data Home Medications Medication Instructions Recorded Confirmed Omeprazole 20 mg PO DAILY 07/10/18 12/11/20 LORazepam [Ativan] 1 mg PO QID PRN 08/13/18 12/11/20 Amitriptyline HCl [Elavil] 150 mg PO HS 10/08/19 12/11/20 Baclofen [Lioresal] 20 mg PO QID PRN 10/08/19 12/11/20 Ondansetron Odt [Zofran ODT] 8 mg PO Q8H PRN 02/19/20 12/11/20 Ubidecarenone [Co Q-10] 300 mg PO DAILY 05/05/20 12/11/20 HYDROcodone/APAP 10-325MG [[place] 1 tab PO TID PRN 09/15/20 12/11/20 10-325] Allergies Allergy/AdvReac Type Severity Reaction Status Date / Time haloperidol [From Haldol] AdvReac Hallucinati Verified 12/11/20 13:34 ons ketorolac [From Toradol] AdvReac Nausea & Verified 12/12/20 04:33 Vomiting Review of Systems ROS Statement: Those systems with pertinent positive or pertinent negative responses have been documented in the HPI. ROS Other: All systems not noted in ROS Statement are negative. Past Medical History Past Medical History: Asthma, GERD/Reflux Additional Past Medical History / Comment(s): cyclic vomiting syndrome, numbness/tingling bilateral feet when vomiting, low back pain/ruptured discs, occupational asthma, History of Any Multi-Drug Resistant Organisms: None Reported Past Surgical History: Adenoidectomy, Appendectomy, Cholecystectomy, Orthopedic Surgery, Tonsillectomy Additional Past Surgical History / Comment(s): EGD, ORIF bilateral ankles, Past Anesthesia/Blood Transfusion Reactions: No Reported Reaction Past Psychological History: Anxiety Smoking Status: Never smoker Past Alcohol Use History: None Reported Past Drug Use History: Marijuana - Past Family History Father Family Medical History: No Reported History Mother Family Medical History: Diabetes Mellitus Additional Family Medical History / Comment(s): severe food allergies General Exam General appearance: alert, in no apparent distress, anxious Head exam: Present: atraumatic, normocephalic, normal inspection Eye exam: Present: normal appearance, PERRL, EOMI. Absent: scleral icterus, conjunctival injection, periorbital swelling ENT exam: Present: normal exam, mucous membranes moist Neck exam: Present: normal inspection. Absent: tenderness, meningismus, lymphadenopathy Respiratory exam: Present: normal lung sounds bilaterally. Absent: respiratory distress, wheezes, rales, rhonchi, stridor Cardiovascular Exam: Present: regular rate, normal rhythm, normal heart sounds. Absent: systolic murmur, diastolic murmur, rubs, gallop, clicks GI/Abdominal exam: Present: soft, normal bowel sounds. Absent: distended, tenderness, guarding, rebound, rigid Extremities exam: Present: normal inspection, full ROM, normal capillary refill. Absent: tenderness, pedal edema, joint swelling, calf tenderness Back exam: Present: normal inspection Neurological exam: Present: alert, oriented X3, CN II-XII intact Psychiatric exam: Present: normal affect, normal mood Skin exam: Present: warm, dry, intact, normal color. Absent: rash Course Vital Signs 12/12/20 04:34 Temperature 97.6 F Pulse Rate 100 Respiratory 22 Rate Blood Pressure 140/89 O2 Sat by Pulse 98 Oximetry - Reevaluation(s) Reevaluation #1: 12/12/20 06:59 Medical record is reviewed Reevaluation #2: 12/12/20 06:59 Patient has pain control here in the emergency department Medical Decision Making - Medical Decision Making 35 male to the emergency for evaluation. Patient presents today for evaluation of generalized pain and severe pain. - Lab Data Result diagrams: 12/12/20 05:06 12/12/20 05:06 Lab Results 12/12/20 12/12/20 Range/Units 05:06 05:06 WBC 10.7 H (3.8-10.6) k/uL RBC 5.18 (4.30-5.90) m/uL Hgb 15.8 (13.0-17.5) gm/dL Hct 45.3 (39.0-53.0) % MCV 87.5 (80.0-100.0) fL MCH 30.5 (25.0-35.0) pg MCHC 34.8 (31.0-37.0) g/dL RDW 12.3 (11.5-15.5) % Plt Count 388 (150-450) k/uL MPV 7.6 Neutrophils % 73 % Lymphocytes % 18 % Monocytes % 6 % Eosinophils % 1 % Basophils % 0 % Neutrophils # 7.8 H (1.3-7.7) k/uL Lymphocytes # 1.9 (1.0-4.8) k/uL Monocytes # 0.6 (0-1.0) k/uL Eosinophils # 0.1 (0-0.7) k/uL Basophils # 0.0 (0-0.2) k/uL Sodium 138 (137-145) mmol/L Potassium 4.7 (3.5-5.1) mmol/L Chloride 102 (98-107) mmol/L Carbon Dioxide 24 (22-30) mmol/L Anion Gap 12 mmol/L BUN 14 (9-20) mg/dL Creatinine 0.76 (0.66-1.25) mg/dL Est GFR (CKD-EPI)AfAm >90 (>60 ml/min/1.73 sqM) Est GFR (CKD-EPI)NonAf >90 (>60 ml/min/1.73 sqM) Glucose 96 (74-99) mg/dL Calcium 10.6 H (8.4-10.2) mg/dL Disposition Clinical Impression: Cyclical vomiting, intractable, Intractable nausea and vomiting, Failure of outpatient treatment, Intractable abdominal pain, Epigastric abdominal pain Disposition: HOME SELF-CARE Condition: Fair Instructions (If sedation given, give patient instructions): Abdominal Pain (ED) Is patient prescribed a controlled substance at d/c from ED?: No Referrals: Mary Dougherty MD [Primary Care Provider] - 1-2 days
[2020-12-12] MEDS ORDERED: HYDROmorphone 1 MG/ML 1 ML SYRINGE IVP STA ×3 (05:00→06:59)
[2020-12-12] MEDS ORDERED: ONDANSETRON 4 MG/2 ML VIAL IVP STA (05:01)
[2020-12-12] MEDS ORDERED: SODIUM CHLORIDE 0.9% 2,000 ML IV ONE (05:01)
[2020-12-12] MEDS ORDERED: FAMOTIDINE 20 MG/2 ML VIAL IV STA (05:01)
[2020-12-12 05:19] LABS: Basophils % (A) 0 %; Eosinophils # (A) 0.1 k/uL (0-0.7); Eosinophils % (A) 1 %; HCT 45.3 % (39.0-53.0); HGB 15.8 gm/dL (13.0-17.5); Lymphocytes # (A) 1.9 k/uL (1.0-4.8); Lymphocytes % (A) 18 %; MCH 30.5 pg (25.0-35.0); MCHC 34.8 g/dL (31.0-37.0); MCV 87.5 fL (80.0-100.0); Mean Platelet Volume 7.6; Monocytes # (A) 0.6 k/uL (0-1.0); Monocytes % (A) 6 %; Neutrophils # (A) 7.8 k/uL (1.3-7.7); Neutrophils % (A) 73 %; Platelet Count 388 k/uL (150-450); RBC 5.18 m/uL (4.30-5.90); RDW 12.3 % (11.5-15.5); WBC 10.7 k/uL (3.8-10.6)
[2020-12-12 05:29] LABS: African American GFR (CKD) >90 (>60 ml/min/1.73 sqM); Anion Gap 12 mmol/L; Blood Urea Nitrogen 14 mg/dL (9-20); Calcium 10.6 mg/dL (8.4-10.2); Carbon Dioxide 24 mmol/L (22-30); Chloride 102 mmol/L (98-107); Glucose 96 mg/dL (74-99); Non-African American GFR(CKD) >90 (>60 ml/min/1.73 sqM); Sodium 138 mmol/L (137-145)
[2020-12-12] MEDS ORDERED: LORazepam 2 MG/ML INJ IV STA (05:44)
[2020-12-12] MEDS ORDERED: PROCHLORPERAZINE INJ 10 MG/2 ML VIAL IVP STA (06:05)
[2020-12-12] MEDS ORDERED: diphenhydrAMINE 50 MG/ML 1 ML VIAL IVP STA (06:16)
[2020-12-12 06:20] LABS: Potassium 4.7 mmol/L (3.5-5.1)
[2020-12-12] MEDS ORDERED: ACET/COD 300 MG/30 MG STARTER PACK 6 TAB BTL PO STA (06:57)
[2020-12-12 07:08] VITALS: BP 137/70; PULSE 99; RESP 20
== END 2020-12-12 07:34 | disposition home or self-care (01) ==
LOC: EC 03:58
DX: R10.13 Epigastric pain (principal); R11.2 Nausea with vomiting, unspecified; J45.909 Unspecified asthma, uncomplicated; K21.9 Gastro-esophageal reflux disease without esophagitis; F41.9 Anxiety disorder, unspecified; F12.90 Cannabis use, unspecified, uncomplicated; Z88.1 Allergy status to other antibiotic agents; Z90.49 Acquired absence of other specified parts of digestive tract; Z90.89 Acquired absence of other organs
CPT/HCPCS: 99284; 96374; 96375 ×5; 96376 ×2; 96361 ×2; 36415; 80048; 85025; J2060; J1200; J0780; J2405; J1170

== ENCOUNTER 2020-12-12 17:38 | Emergency (ER) | payer OTHER ==
[2020-12-12 17:54] VITALS: TEMP 98.7
[2020-12-12] MEDS ORDERED: ONDANSETRON 4 MG/2 ML VIAL IVP STA (18:11)
[2020-12-12] MEDS ORDERED: MORPHINE SULFATE 4 MG/ML SYRINGE IVP STA (18:11)
[2020-12-12] MEDS ORDERED: SODIUM CHLORIDE 0.9% 1,000 ML IV STA (18:11)
[2020-12-12 18:33] LABS: Basophils % (A) 0 %; Eosinophils # (A) 0.1 k/uL (0-0.7); Eosinophils % (A) 1 %; HCT 41.6 % (39.0-53.0); HGB 14.2 gm/dL (13.0-17.5); Lymphocytes # (A) 1.8 k/uL (1.0-4.8); Lymphocytes % (A) 14 %; MCH 29.9 pg (25.0-35.0); MCHC 34.2 g/dL (31.0-37.0); MCV 87.4 fL (80.0-100.0); Mean Platelet Volume 7.4; Monocytes # (A) 0.6 k/uL (0-1.0); Monocytes % (A) 5 %; Neutrophils # (A) 10.5 k/uL (1.3-7.7); Neutrophils % (A) 80 %; Platelet Count 368 k/uL (150-450); RBC 4.76 m/uL (4.30-5.90); RDW 12.3 % (11.5-15.5); WBC 13.1 k/uL (3.8-10.6)
[2020-12-12 18:41] LABS: ALT 24 U/L (4-49); AST 22 U/L (17-59); African American GFR (CKD) >90 (>60 ml/min/1.73 sqM); Albumin 4.9 g/dL (3.5-5.0); Alkaline Phosphatase 66 U/L (38-126); Amylase 69 U/L (30-110); Anion Gap 12 mmol/L; Blood Urea Nitrogen 14 mg/dL (9-20); Calcium 9.8 mg/dL (8.4-10.2); Carbon Dioxide 24 mmol/L (22-30); Chloride 102 mmol/L (98-107); Glucose 104 mg/dL (74-99); Lipase 245 U/L (23-300); Non-African American GFR(CKD) >90 (>60 ml/min/1.73 sqM); Potassium 3.8 mmol/L (3.5-5.1); Sodium 138 mmol/L (137-145); Total Bilirubin 1.5 mg/dL (0.2-1.3); Total Protein 7.8 g/dL (6.3-8.2)
[2020-12-12] MEDS ORDERED: HYDROmorphone 1 MG/ML 1 ML SYRINGE IVP STA ×2 (19:09→19:46)
[2020-12-12] MEDS ORDERED: PANTOPRAZOLE 40 MG/10 ML VIAL IVP STA (19:09)
--- NOTE | 2020-12-12 19:48 | ED ---
General Adult HPI - General Chief complaint: Abdominal Pain Stated complaint: Abd pain Time Seen by Provider: 12/12/20 17:57 Source: patient, RN notes reviewed Mode of arrival: ambulatory Limitations: no limitations - History of Present Illness Initial comments: Patient is a 35-year-old male that presents to emergency room complaining of abdominal pain with nausea and vomiting. Patient is a well-known patient to emergency department. He notes that he smoked marijuana within the past day and then became nauseous and started vomiting and having severe abdominal pain. Patient has been informed of the past that stopping smoking marijuana could help prevent these episodes of abdominal pain with nausea vomiting. Patient notes that he's been seen by GI specialist who told him the same thing. Patient was otherwise well-appearing. He denied any issues or complaints. He denied chest pain shortness of breath headache diarrhea constipation fever fatigue chills. - Related Data Home Medications Medication Instructions Recorded Confirmed Omeprazole 20 mg PO DAILY 07/10/18 12/12/20 LORazepam [Ativan] 1 mg PO QID PRN 08/13/18 12/12/20 Amitriptyline HCl [Elavil] 150 mg PO HS 10/08/19 12/12/20 Baclofen [Lioresal] 20 mg PO QID PRN 10/08/19 12/12/20 Ondansetron Odt [Zofran ODT] 8 mg PO Q8H PRN 02/19/20 12/12/20 Ubidecarenone [Co Q-10] 300 mg PO DAILY 05/05/20 12/12/20 HYDROcodone/APAP 10-325MG [[place] 1 tab PO TID PRN 09/15/20 12/12/20 10-325] Allergies Allergy/AdvReac Type Severity Reaction Status Date / Time haloperidol [From Haldol] AdvReac Hallucinati Verified 12/12/20 18:45 ons ketorolac [From Toradol] AdvReac Nausea & Verified 12/12/20 18:45 Vomiting Review of Systems ROS Statement: Those systems with pertinent positive or pertinent negative responses have been documented in the HPI. ROS Other: All systems not noted in ROS Statement are negative. Past Medical History Past Medical History: Asthma, GERD/Reflux Additional Past Medical History / Comment(s): cyclic vomiting syndrome, numbness/tingling bilateral feet when vomiting, low back pain/ruptured discs, occupational asthma, History of Any Multi-Drug Resistant Organisms: None Reported Past Surgical History: Adenoidectomy, Appendectomy, Cholecystectomy, Orthopedic Surgery, Tonsillectomy Additional Past Surgical History / Comment(s): EGD, ORIF bilateral ankles, Past Anesthesia/Blood Transfusion Reactions: No Reported Reaction Past Psychological History: Anxiety Smoking Status: Never smoker Past Alcohol Use History: None Reported Past Drug Use History: Marijuana - Past Family History Father Family Medical History: No Reported History Mother Family Medical History: Diabetes Mellitus Additional Family Medical History / Comment(s): severe food allergies General Exam Limitations: no limitations General appearance: alert, in no apparent distress Head exam: Present: atraumatic, normocephalic, normal inspection Eye exam: Present: normal appearance, PERRL, EOMI. Absent: scleral icterus, conjunctival injection, periorbital swelling ENT exam: Present: normal exam, mucous membranes moist Neck exam: Present: normal inspection Respiratory exam: Present: normal lung sounds bilaterally. Absent: respiratory distress, wheezes, rales, rhonchi, stridor Cardiovascular Exam: Present: regular rate, normal rhythm, normal heart sounds. Absent: systolic murmur, diastolic murmur, rubs, gallop, clicks GI/Abdominal exam: Present: soft, normal bowel sounds. Absent: distended, tenderness, guarding, rebound, rigid Extremities exam: Present: normal inspection, full ROM, normal capillary refill. Absent: tenderness, pedal edema, joint swelling, calf tenderness Neurological exam: Present: alert, oriented X3 Psychiatric exam: Present: normal affect, normal mood Skin exam: Present: warm, dry, intact, normal color. Absent: rash Course Vital Signs 12/12/20 17:51 Temperature 98.7 F Pulse Rate 83 Respiratory 18 Rate Blood Pressure 150/103 O2 Sat by Pulse 100 Oximetry Medical Decision Making - Medical Decision Making 35-year-old male complaining of abdominal pain nausea vomiting. Labs, 1 L normal saline, 1 mg of Dilaudid, 4 mg of Zofran ordered. Labs unremarkable from baseline, mild leukocytosis at 13.1. Patient still complaining of pain. One more milligram of Dilaudid, 40 mg of Protonix ordered. Case discussed with Dr. Florian patient discharge home with follow-up primary care and GI specialist. Patient was once again informed that stopping smoking marijuana would greatly improved symptoms. - Lab Data Result diagrams: 12/12/20 18:29 12/12/20 18:29 Lab Results 12/12/20 12/12/20 Range/Units 18:29 18:29 WBC 13.1 H (3.8-10.6) k/uL RBC 4.76 (4.30-5.90) m/uL Hgb 14.2 (13.0-17.5) gm/dL Hct 41.6 (39.0-53.0) % MCV 87.4 (80.0-100.0) fL MCH 29.9 (25.0-35.0) pg MCHC 34.2 (31.0-37.0) g/dL RDW 12.3 (11.5-15.5) % Plt Count 368 (150-450) k/uL MPV 7.4 Neutrophils % 80 % Lymphocytes % 14 % Monocytes % 5 % Eosinophils % 1 % Basophils % 0 % Neutrophils # 10.5 H (1.3-7.7) k/uL Lymphocytes # 1.8 (1.0-4.8) k/uL Monocytes # 0.6 (0-1.0) k/uL Eosinophils # 0.1 (0-0.7) k/uL Basophils # 0.0 (0-0.2) k/uL Sodium 138 (137-145) mmol/L Potassium 3.8 (3.5-5.1) mmol/L Chloride 102 (98-107) mmol/L Carbon Dioxide 24 (22-30) mmol/L Anion Gap 12 mmol/L BUN 14 (9-20) mg/dL Creatinine 0.72 (0.66-1.25) mg/dL Est GFR (CKD-EPI)AfAm >90 (>60 ml/min/1.73 sqM) Est GFR (CKD-EPI)NonAf >90 (>60 ml/min/1.73 sqM) Glucose 104 H (74-99) mg/dL Calcium 9.8 (8.4-10.2) mg/dL Total Bilirubin 1.5 H (0.2-1.3) mg/dL AST 22 (17-59) U/L ALT 24 (4-49) U/L Alkaline Phosphatase 66 (38-126) U/L Total Protein 7.8 (6.3-8.2) g/dL Albumin 4.9 (3.5-5.0) g/dL Amylase 69 (30-110) U/L Lipase 245 (23-300) U/L Disposition Clinical Impression: Intractable nausea and vomiting, Drug-seeking behavior, Cannabis hyperemesis syndrome concurrent with and due to cannabis abuse Disposition: HOME SELF-CARE Condition: Stable Instructions (If sedation given, give patient instructions): Acute Nausea and Vomiting (ED) Additional Instructions: Please return to the Emergency Department if symptoms worsen or any other concerns. Stop smoking marijuana. Follow-up with primary care in 1-2 days. Follow-up with GI specialist as needed. Is patient prescribed a controlled substance at d/c from ED?: No Referrals: Mary Dougherty MD [Primary Care Provider] - 1-2 days Time of Disposition: 20:01
[2020-12-12 20:28] VITALS: BP 90/54; PULSE 77; RESP 16
== END 2020-12-12 20:36 | disposition home or self-care (01) ==
LOC: EC 17:38
DX: R11.2 Nausea with vomiting, unspecified (principal); F12.188 Cannabis abuse with other cannabis-induced disorder; Z76.5 Malingerer [conscious simulation]; K21.9 Gastro-esophageal reflux disease without esophagitis; J45.909 Unspecified asthma, uncomplicated; Z88.8 Allergy status to other drugs, medicaments and biological substances; Z79.899 Other long term (current) drug therapy; Z79.51 Long term (current) use of inhaled steroids
CPT/HCPCS: 36415; 80053; 82150; 83690; 85025; 99284; 96374; 96375; J2270; J2405; J1170; C9113

== ENCOUNTER 2020-12-14 08:46 | Emergency (ER) | payer OTHER ==
[2020-12-14 08:55] VITALS: RESP 18; TEMP 96.9
[2020-12-14] MEDS ORDERED: HYDROmorphone 1 MG/ML 1 ML SYRINGE IVP STA ×2 (09:16→10:43)
[2020-12-14] MEDS ORDERED: diphenhydrAMINE 50 MG/ML 1 ML VIAL IVP STA (09:16)
[2020-12-14] MEDS ORDERED: SODIUM CHLORIDE 0.9% 1,000 ML IV STA (09:16)
[2020-12-14] MEDS ORDERED: PANTOPRAZOLE 40 MG/10 ML VIAL IVP STA (09:16)
[2020-12-14] MEDS ORDERED: ONDANSETRON 4 MG/2 ML VIAL IVP STA ×2 (09:16→10:43)
--- NOTE | 2020-12-14 10:45 | ED ---
Abdominal Pain HPI - General Chief Complaint: Abdominal Pain Stated Complaint: abd pain Time Seen by Provider: 12/14/20 09:00 Source: patient, RN notes reviewed Mode of arrival: wheelchair Limitations: no limitations - History of Present Illness Initial Comments: Patient is a 35-year-old male that presents to emergency room complaining of abdominal pain. 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 He does have a history of intractable nausea vomiting, hyperemesis cannabinoid syndrome. He notes that he is having the same typical abdominal pain. Recent labs on 12/12/2020 were unremarkable. Patient notes he just wanted symptom medic control the pain to go away. Patient denied any chest pain shortness breath headache diarrhea constipation fever fatigue chills. - Related Data Home Medications Medication Instructions Recorded Confirmed LORazepam [Ativan] 1 mg PO QID PRN 08/13/18 12/14/20 Amitriptyline HCl [Elavil] 150 mg PO HS 10/08/19 12/14/20 HYDROcodone/APAP 10-325MG [[place] 1 tab PO TID PRN 09/15/20 12/14/20 10-325] Allergies Allergy/AdvReac Type Severity Reaction Status Date / Time haloperidol [From Haldol] AdvReac Hallucinati Verified 12/14/20 08:55 ons ketorolac [From Toradol] AdvReac Nausea & Verified 12/14/20 08:55 Vomiting Review of Systems ROS Statement: Those systems with pertinent positive or pertinent negative responses have been documented in the HPI. ROS Other: All systems not noted in ROS Statement are negative. Past Medical History Past Medical History: Asthma, GERD/Reflux Additional Past Medical History / Comment(s): cyclic vomiting syndrome, numbness/tingling bilateral feet when vomiting, low back pain/ruptured discs, occupational asthma, History of Any Multi-Drug Resistant Organisms: None Reported Past Surgical History: Adenoidectomy, Appendectomy, Cholecystectomy, Orthopedic Surgery, Tonsillectomy Additional Past Surgical History / Comment(s): EGD, ORIF bilateral ankles, Past Anesthesia/Blood Transfusion Reactions: No Reported Reaction Past Psychological History: Anxiety Smoking Status: Never smoker Past Alcohol Use History: None Reported Past Drug Use History: Marijuana - Past Family History Father Family Medical History: No Reported History Mother Family Medical History: Diabetes Mellitus Additional Family Medical History / Comment(s): severe food allergies General Exam Limitations: no limitations General appearance: alert, in no apparent distress Head exam: Present: atraumatic, normocephalic, normal inspection Eye exam: Present: normal appearance, PERRL, EOMI. Absent: scleral icterus, conjunctival injection, periorbital swelling ENT exam: Present: normal exam, mucous membranes moist Neck exam: Present: normal inspection Respiratory exam: Present: normal lung sounds bilaterally. Absent: respiratory distress, wheezes, rales, rhonchi, stridor Cardiovascular Exam: Present: regular rate, normal rhythm, normal heart sounds. Absent: systolic murmur, diastolic murmur, rubs, gallop, clicks GI/Abdominal exam: Present: soft, tenderness (Generalized throughout), normal bowel sounds. Absent: distended, guarding, rebound, rigid Extremities exam: Present: normal inspection, full ROM, normal capillary refill. Absent: tenderness, pedal edema, joint swelling, calf tenderness Neurological exam: Present: alert, oriented X3 Psychiatric exam: Present: normal affect, normal mood Skin exam: Present: warm, dry, intact, normal color. Absent: rash Course Vital Signs 12/14/20 08:47 Temperature 96.9 F L Pulse Rate 73 Respiratory 18 Rate Blood Pressure 145/98 O2 Sat by Pulse 97 Oximetry Medical Decision Making - Medical Decision Making 35-year-old male that is well-known immersed for complaining of abdominal pain with nausea vomiting. 1 L normal saline, Dilaudid, 4 mg Zofran, 50 mg of Benadryl ordered. Upon reevaluation patient appears to be feeling better. still having some nausea and discomfort. 1 mg of Dilaudid, 4 g of Zofran ordered for continuing symptoms. Case discussed with Dr. Thompson, patient discharge home. Patient is agreeable with discharge home. Disposition Clinical Impression: Nausea and vomiting, Abdominal pain, Cannabis hyperemesis syndrome concurrent with and due to cannabis abuse Disposition: HOME SELF-CARE Condition: Stable Instructions (If sedation given, give patient instructions): Abdominal Pain (ED) Additional Instructions: Please return to the Emergency Department if symptoms worsen or any other concerns. Is patient prescribed a controlled substance at d/c from ED?: No Referrals: Mary Dougherty MD [Primary Care Provider] - 1-2 days Time of Disposition: 11:28
[2020-12-14] MEDS ORDERED: ONDANSETRON 4 MG ODT STARTER PACK 2 TAB BTL PO STA (12:24)
[2020-12-14 12:34] VITALS: BP 144/94; PULSE 68
== END 2020-12-14 12:33 | disposition home or self-care (01) ==
LOC: EC 08:46
DX: F12.10 Cannabis abuse, uncomplicated (principal); R11.2 Nausea with vomiting, unspecified; R10.84 Generalized abdominal pain; K21.9 Gastro-esophageal reflux disease without esophagitis; J45.909 Unspecified asthma, uncomplicated; Z79.899 Other long term (current) drug therapy; Z90.49 Acquired absence of other specified parts of digestive tract; Z83.3 Family history of diabetes mellitus; Z88.8 Allergy status to other drugs, medicaments and biological substances
CPT/HCPCS: 96374; 96375 ×2; 96376 ×2; 96361 ×3; 99283; J1200; J2405; J1170; S0119; C9113

== ENCOUNTER 2021-02-12 08:49 | Emergency (ER) | payer OTHER ==
[2021-02-12 08:59] VITALS: BP 149/98; PULSE 94; RESP 20; TEMP 96.4
[2021-02-12] MEDS ORDERED: SODIUM CHLORIDE 0.9% 2,000 ML IV STA (09:07)
[2021-02-12] MEDS ORDERED: METOCLOPRAMIDE 5 MG/ML 2 ML VIAL IVP STA (09:07)
[2021-02-12] MEDS ORDERED: CAPSAICIN 0.025% CREAM 60 GM TUBE TOPICAL STA (09:08)
[2021-02-12] MEDS ORDERED: FAMOTIDINE 20 MG/2 ML VIAL IV STA (09:08)
[2021-02-12] MEDS ORDERED: diphenhydrAMINE 50 MG/ML 1 ML VIAL IVP STA (09:08)
[2021-02-12] MEDS ORDERED: LORazepam 2 MG/ML INJ IV STA (09:08)
--- NOTE | 2021-02-12 09:11 | ED ---
General Adult HPI - General Chief complaint: Nausea/Vomiting/Diarrhea Stated complaint: abd pain & vomiting Time Seen by Provider: 02/12/21 09:02 Source: patient, RN notes reviewed, old records reviewed Mode of arrival: ambulatory Limitations: no limitations - History of Present Illness Initial comments: Patient is a pleasant 35-year-old male presenting to the emergency department with nausea vomiting. Onset of symptoms was 3 AM. Patient has history of chronic similar symptoms, every couple weeks. Patient also has abdominal pain. Symptoms are similar to chronic symptoms. Patient does smoke marijuana. Patient denies being diabetic. Patient states he is trying to smoke less marijuana recently. No fever. No constipation or diarrhea. - Related Data Home Medications Medication Instructions Recorded Confirmed LORazepam [Ativan] 1 mg PO QID PRN 08/13/18 02/12/21 Amitriptyline HCl [Elavil] 150 mg PO HS 10/08/19 02/12/21 HYDROcodone/APAP 10-325MG [[place] 1 tab PO TID PRN 09/15/20 02/12/21 10-325] Famotidine [Pepcid AC] 10 mg PO BID PRN 02/12/21 02/12/21 Ondansetron Odt [Zofran Odt] 8 mg PO Q8H PRN 02/12/21 02/12/21 Allergies Allergy/AdvReac Type Severity Reaction Status Date / Time haloperidol [From Haldol] AdvReac Hallucinati Verified 02/12/21 09:58 ons ketorolac [From Toradol] AdvReac Nausea & Verified 02/12/21 09:58 Vomiting Review of Systems ROS Statement: Those systems with pertinent positive or pertinent negative responses have been documented in the HPI. ROS Other: All systems not noted in ROS Statement are negative. Constitutional: Denies: fever Eyes: Denies: eye pain ENT: Denies: ear pain Respiratory: Denies: cough Cardiovascular: Denies: chest pain Endocrine: Denies: fatigue Gastrointestinal: Reports: as per HPI, abdominal pain, nausea, vomiting. Denies: diarrhea, constipation Genitourinary: Denies: dysuria Musculoskeletal: Denies: back pain Skin: Denies: rash Neurological: Denies: weakness Past Medical History Past Medical History: Asthma, GERD/Reflux Additional Past Medical History / Comment(s): cyclic vomiting syndrome, numbness/tingling bilateral feet when vomiting, low back pain/ruptured discs, occupational asthma, History of Any Multi-Drug Resistant Organisms: None Reported Past Surgical History: Adenoidectomy, Appendectomy, Cholecystectomy, Orthopedic Surgery, Tonsillectomy Additional Past Surgical History / Comment(s): EGD, ORIF bilateral ankles, Past Anesthesia/Blood Transfusion Reactions: No Reported Reaction Past Psychological History: Anxiety Smoking Status: Never smoker Past Alcohol Use History: None Reported Past Drug Use History: Marijuana - Past Family History Father Family Medical History: No Reported History Mother Family Medical History: Diabetes Mellitus Additional Family Medical History / Comment(s): severe food allergies General Exam Limitations: no limitations General appearance: alert Head exam: Present: normocephalic Eye exam: Present: normal appearance Neck exam: Present: normal inspection Respiratory exam: Present: normal lung sounds bilaterally Cardiovascular Exam: Present: regular rate, normal rhythm Expanded Peripheral pulses: 2+: Dorsalis Pedis (R), Dorsalis Pedis (L) GI/Abdominal exam: Present: soft, normal bowel sounds. Absent: distended, tenderness, guarding, rebound, rigid, pulsatile mass Extremities exam: Present: normal inspection Neurological exam: Present: alert Psychiatric exam: Present: normal affect, normal mood Skin exam: Present: normal color Course Vital Signs 02/12/21 08:55 Temperature 96.4 F L Pulse Rate 94 Respiratory 20 Rate Blood Pressure 149/98 O2 Sat by Pulse 100 Oximetry Medical Decision Making - Medical Decision Making Patient reevaluated and standing upright at bedside. Patient still has nausea and pain. Patient states only Dilaudid helps for his symptoms and requests more. Previous charts reviewed - Lab Data Result diagrams: 02/12/21 09:13 02/12/21 09:13 Lab Results 02/12/21 02/12/21 Range/Units 09:13 09:13 WBC 13.3 H (3.8-10.6) k/uL RBC 5.18 (4.30-5.90) m/uL Hgb 15.9 (13.0-17.5) gm/dL Hct 46.5 (39.0-53.0) % MCV 89.8 (80.0-100.0) fL MCH 30.8 (25.0-35.0) pg MCHC 34.2 (31.0-37.0) g/dL RDW 12.8 (11.5-15.5) % Plt Count 365 (150-450) k/uL MPV 7.5 Neutrophils % 86 % Lymphocytes % 10 % Monocytes % 3 % Eosinophils % 1 % Basophils % 0 % Neutrophils # 11.4 H (1.3-7.7) k/uL Lymphocytes # 1.3 (1.0-4.8) k/uL Monocytes # 0.4 (0-1.0) k/uL Eosinophils # 0.1 (0-0.7) k/uL Basophils # 0.0 (0-0.2) k/uL Sodium 139 (137-145) mmol/L Potassium 4.5 (3.5-5.1) mmol/L Chloride 108 H (98-107) mmol/L Carbon Dioxide 23 (22-30) mmol/L Anion Gap 8 mmol/L BUN 13 (9-20) mg/dL Creatinine 0.79 (0.66-1.25) mg/dL Est GFR (CKD-EPI)AfAm >90 (>60 ml/min/1.73 sqM) Est GFR (CKD-EPI)NonAf >90 (>60 ml/min/1.73 sqM) Glucose 119 H (74-99) mg/dL Calcium 10.3 H (8.4-10.2) mg/dL Total Bilirubin 1.0 (0.2-1.3) mg/dL AST 24 (17-59) U/L ALT 30 (4-49) U/L Alkaline Phosphatase 82 (38-126) U/L Total Protein 7.9 (6.3-8.2) g/dL Albumin 4.9 (3.5-5.0) g/dL Amylase 63 (30-110) U/L Lipase 84 (23-300) U/L - Radiology Data Radiology results: image reviewed (Abdominal x-ray reveals no acute process) Disposition Clinical Impression: Cyclic vomiting syndrome, Chronic pain Disposition: HOME SELF-CARE Condition: Stable Instructions (If sedation given, give patient instructions): Acute Nausea and Vomiting (ED) Additional Instructions: Discontinue marijuana. Please follow-up with primary care physician in the next day or 2 for recheck. Return for fever, unable to tolerate fluids, worsening symptoms or other concerns. Is patient prescribed a controlled substance at d/c from ED?: No Referrals: Mary Dougherty MD [Primary Care Provider] - 1-2 days Time of Disposition: 11:01
[2021-02-12 09:39] LABS: ALT 30 U/L (4-49); AST 24 U/L (17-59); African American GFR (CKD) >90 (>60 ml/min/1.73 sqM); Albumin 4.9 g/dL (3.5-5.0); Alkaline Phosphatase 82 U/L (38-126); Amylase 63 U/L (30-110); Anion Gap 8 mmol/L; Blood Urea Nitrogen 13 mg/dL (9-20); Calcium 10.3 mg/dL (8.4-10.2); Carbon Dioxide 23 mmol/L (22-30); Chloride 108 mmol/L (98-107); Glucose 119 mg/dL (74-99); Lipase 84 U/L (23-300); Non-African American GFR(CKD) >90 (>60 ml/min/1.73 sqM); Potassium 4.5 mmol/L (3.5-5.1); Sodium 139 mmol/L (137-145); Total Protein 7.9 g/dL (6.3-8.2)
[2021-02-12 09:49] LABS: Basophils % (A) 0 %; Eosinophils # (A) 0.1 k/uL (0-0.7); Eosinophils % (A) 1 %; HCT 46.5 % (39.0-53.0); HGB 15.9 gm/dL (13.0-17.5); Lymphocytes # (A) 1.3 k/uL (1.0-4.8); Lymphocytes % (A) 10 %; MCH 30.8 pg (25.0-35.0); MCHC 34.2 g/dL (31.0-37.0); MCV 89.8 fL (80.0-100.0); Mean Platelet Volume 7.5; Monocytes # (A) 0.4 k/uL (0-1.0); Monocytes % (A) 3 %; Neutrophils # (A) 11.4 k/uL (1.3-7.7); Neutrophils % (A) 86 %; Platelet Count 365 k/uL (150-450); RBC 5.18 m/uL (4.30-5.90); RDW 12.8 % (11.5-15.5); WBC 13.3 k/uL (3.8-10.6)
--- NOTE | 2021-02-12 10:12 | XR ---
KUB HISTORY: Pain Frontal KUB on 2 images correlated prior KUB 06/02/2020 The lung bases are clear. Surgical clips are present in the right upper quadrant. No evident bowel ob struction or pneumoperitoneum. No pathologic calcification is evident. Probable phleboliths present w ithin the pelvis. There are overlying artifacts. IMPRESSION: No acute abnormalities evident.
[2021-02-12] MEDS ORDERED: HYDROmorphone 0.5 MG/0.5 ML SYRINGE IVP STA (10:24)
[2021-02-12] MEDS ORDERED: ONDANSETRON 4 MG/2 ML VIAL IVP STA (10:59)
== END 2021-02-12 11:39 | disposition home or self-care (01) ==
LOC: EC 08:49
DX: R11.15 Cyclical vomiting syndrome unrelated to migraine (principal); G89.29 Other chronic pain; J45.909 Unspecified asthma, uncomplicated; K21.9 Gastro-esophageal reflux disease without esophagitis; F41.9 Anxiety disorder, unspecified; F12.90 Cannabis use, unspecified, uncomplicated; Z88.1 Allergy status to other antibiotic agents; Z90.49 Acquired absence of other specified parts of digestive tract
CPT/HCPCS: 99284; 96374; 96375 ×4; 96361 ×2; 36415; 80053; 82150; 83690; 85025; 74018; J2060; J1200; J2765; J1170

== ENCOUNTER 2021-02-12 16:37 | Emergency (ER) | payer OTHER ==
[2021-02-12 16:44] VITALS: BP 161/90; PULSE 90; RESP 18; TEMP 98.2
[2021-02-12] MEDS ORDERED: ONDANSETRON 4 MG ODT STARTER PACK 2 TAB BTL PO STA (17:11)
[2021-02-12] MEDS ORDERED: ONDANSETRON 4 MG/2 ML VIAL IM STA (17:11)
--- NOTE | 2021-02-12 17:15 | ED ---
Nausea/Vomiting/Diarrhea HPI - General Chief complaint: Nausea/Vomiting/Diarrhea Stated complaint: Abd.pain,N/V Time Seen by Provider: 02/12/21 17:05 Source: patient, RN notes reviewed Mode of arrival: ambulatory Limitations: no limitations - History of Present Illness Initial comments: She is a 35-year-old male that presents to the emergency department complaining of abdominal pain with nausea and vomiting. Patient is a frequent patient at the emergency room for the same complaint any time. Patient notes he does smoke marijuana regularly. He notes that he smokes yesterday. He noted that he does follow-up with pain management but is unable to keep any medicine down. Patient was seen earlier today and emergency department pulled out his own IV and left after being told he cannot give any more pain medications. Patient was otherwise well-appearing appear to be agitated when he was informed he cannot get anymore pain medications in the ER. Patient denied any chest pain shortness of breath headache diarrhea constipation fever fatigue chills. - Related Data Home Medications Medication Instructions Recorded Confirmed LORazepam [Ativan] 1 mg PO QID PRN 08/13/18 02/12/21 Amitriptyline HCl [Elavil] 150 mg PO HS 10/08/19 02/12/21 HYDROcodone/APAP 10-325MG [[place] 1 tab PO TID PRN 09/15/20 02/12/21 10-325] Famotidine [Pepcid AC] 10 mg PO BID PRN 02/12/21 02/12/21 Ondansetron Odt [Zofran Odt] 8 mg PO Q8H PRN 02/12/21 02/12/21 Allergies Allergy/AdvReac Type Severity Reaction Status Date / Time haloperidol [From Haldol] AdvReac Hallucinati Verified 02/12/21 16:44 ons ketorolac [From Toradol] AdvReac Nausea & Verified 02/12/21 16:44 Vomiting Review of Systems ROS Statement: Those systems with pertinent positive or pertinent negative responses have been documented in the HPI. ROS Other: All systems not noted in ROS Statement are negative. Past Medical History Past Medical History: Asthma, GERD/Reflux Additional Past Medical History / Comment(s): cyclic vomiting syndrome, numbness/tingling bilateral feet when vomiting, low back pain/ruptured discs, occupational asthma, History of Any Multi-Drug Resistant Organisms: None Reported Past Surgical History: Adenoidectomy, Appendectomy, Cholecystectomy, Orthopedic Surgery, Tonsillectomy Additional Past Surgical History / Comment(s): EGD, ORIF bilateral ankles, Past Anesthesia/Blood Transfusion Reactions: No Reported Reaction Past Psychological History: Anxiety Smoking Status: Never smoker Past Alcohol Use History: None Reported Past Drug Use History: Marijuana - Past Family History Father Family Medical History: No Reported History Mother Family Medical History: Diabetes Mellitus Additional Family Medical History / Comment(s): severe food allergies General Exam Limitations: no limitations General appearance: alert, in no apparent distress Head exam: Present: atraumatic, normocephalic, normal inspection Eye exam: Present: normal appearance, PERRL, EOMI. Absent: scleral icterus, conjunctival injection, periorbital swelling ENT exam: Present: normal exam, mucous membranes moist Neck exam: Present: normal inspection. Absent: tenderness, meningismus, lymphadenopathy Respiratory exam: Present: normal lung sounds bilaterally. Absent: respiratory distress, wheezes, rales, rhonchi, stridor Cardiovascular Exam: Present: regular rate, normal rhythm, normal heart sounds. Absent: systolic murmur, diastolic murmur, rubs, gallop, clicks GI/Abdominal exam: Present: soft, normal bowel sounds. Absent: distended, tenderness, guarding, rebound, rigid Extremities exam: Present: normal inspection, full ROM, normal capillary refill. Absent: tenderness, pedal edema, joint swelling, calf tenderness Neurological exam: Present: alert, oriented X3 Psychiatric exam: Present: normal affect, normal mood Skin exam: Present: warm, dry, intact, normal color. 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 Patient was seen earlier labs from today were unremarkable. Patient was informed that he would not be receiving any pain medication due to his drug seeking tendencies. Patient became agitated upon being informed. He seemed displeased. Patient was informed that he can get Zofran here and Zofran to go. Patient was informed he needs to follow with pain medicine and to stop smoking marijuana. Case discussed with Dr. Thompson. Disposition Clinical Impression: Cannabinoid hyperemesis syndrome, Drug-seeking behavior Disposition: HOME SELF-CARE Condition: Stable Instructions (If sedation given, give patient instructions): Acute Nausea and Vomiting (ED), Polysubstance Abuse (ED) Additional Instructions: Please return to the Emergency Department if symptoms worsen or any other concerns. Discontinue smoking marijuana as it seems to be the cause of her abdominal pain nausea vomiting. Follow-up with pain medicine. Follow-up with primary care. Follow-up with GI specialist. Take Zofran as prescribed. Is patient prescribed a controlled substance at d/c from ED?: No Referrals: Mary Dougehrty MD [Primary Care Provider] - 1-2 days Time of Disposition: 17:15
== END 2021-02-12 17:36 | disposition home or self-care (01) ==
LOC: EC 16:37
DX: R11.10 Vomiting, unspecified (principal); Z76.5 Malingerer [conscious simulation]; J45.909 Unspecified asthma, uncomplicated; F41.9 Anxiety disorder, unspecified; F12.90 Cannabis use, unspecified, uncomplicated
CPT/HCPCS: 99283; 96372; J2405; S0119

== ENCOUNTER 2021-04-16 20:11 | Emergency (ER) | payer OTHER ==
[2021-04-16 20:38] VITALS: TEMP 97.8
[2021-04-16] MEDS ORDERED: ONDANSETRON 4 MG/2 ML VIAL IVP STA (21:15)
[2021-04-16] MEDS ORDERED: SODIUM CHLORIDE 0.9% 1,000 ML IV STA (21:15)
[2021-04-16] MEDS ORDERED: FAMOTIDINE 20 MG/2 ML VIAL IV STA (21:16)
[2021-04-16] MEDS ORDERED: diphenhydrAMINE 50 MG/ML 1 ML VIAL IVP STA (21:18)
--- NOTE | 2021-04-16 21:21 | ED ---
General Adult HPI - General Source: patient, RN notes reviewed, old records reviewed Mode of arrival: wheelchair Limitations: no limitations - History of Present Illness -: hour(s) (2) Location: abdomen Severity scale (1-10): 10 Quality: constant Consistency: constant Improves with: none Worsens with: none Associated Symptoms: nausea/vomiting Treatments Prior to Arrival: none <Jose Rodriguez - Last Filed: 04/17/21 00:30> <Nigel Hamilton - Last Filed: 04/17/21 02:03> - General Chief complaint: Abdominal Pain Stated complaint: Abdominal pain, Vomiting Time Seen by Provider: 04/16/21 21:10 - History of Present Illness Initial comments: 36-year-old male presents to the emergency room with nausea, vomiting and severe abdominal pain that started at 7:30 this evening. Patient states he's had this happen to him multiple times in the past. He has a history of asthma, GERD, cyclic vomiting syndrome, appendectomy and cholecystectomy. The vomit is watery and clear to light yellow in color. Denies any fevers or diarrhea. (Jose Rodriguez) - Related Data Home Medications Medication Instructions Recorded Confirmed LORazepam [Ativan] 1 mg PO QID PRN 08/13/18 04/16/21 Amitriptyline HCl [Elavil] 150 mg PO HS 10/08/19 04/16/21 HYDROcodone/APAP 10-325MG [[place] 1 tab PO TID PRN 09/15/20 04/16/21 10-325] Famotidine [Pepcid AC] 10 mg PO BID PRN 02/12/21 04/16/21 Allergies Allergy/AdvReac Type Severity Reaction Status Date / Time haloperidol [From Haldol] AdvReac Hallucinati Verified 04/16/21 22:26 ons ketorolac [From Toradol] AdvReac Nausea & Verified 04/16/21 22:26 Vomiting Review of Systems ROS Other: All systems not noted in ROS Statement are negative. <Jose Rodriguez - Last Filed: 04/17/21 00:30> ROS Other: All systems not noted in ROS Statement are negative. <Nigel Hamilton - Last Filed: 04/17/21 02:03> ROS Statement: Those systems with pertinent positive or pertinent negative responses have been documented in the HPI. Past Medical History Past Medical History: Asthma, GERD/Reflux Additional Past Medical History / Comment(s): cyclic vomiting syndrome, numbness/tingling bilateral feet when vomiting, low back pain/ruptured discs, occupational asthma, History of Any Multi-Drug Resistant Organisms: None Reported Past Surgical History: Adenoidectomy, Appendectomy, Cholecystectomy, Orthopedic Surgery, Tonsillectomy Additional Past Surgical History / Comment(s): EGD, ORIF bilateral ankles, Past Anesthesia/Blood Transfusion Reactions: No Reported Reaction Past Psychological History: Anxiety Smoking Status: Never smoker Past Alcohol Use History: None Reported Past Drug Use History: Marijuana - Past Family History Father Family Medical History: No Reported History Mother Family Medical History: Diabetes Mellitus Additional Family Medical History / Comment(s): severe food allergies <Jose Rodriguez - Last Filed: 04/17/21 00:30> General Exam Limitations: no limitations General appearance: alert, in no apparent distress ENT exam: Present: normal exam, normal oropharynx, mucous membranes moist Neck exam: Present: normal inspection, full ROM. Absent: tenderness, meningismus Respiratory exam: Present: normal lung sounds bilaterally. Absent: respiratory distress, wheezes, rales, rhonchi, stridor, chest wall tenderness, accessory muscle use, decreased breath sounds Cardiovascular Exam: Present: regular rate, normal rhythm GI/Abdominal exam: Present: soft, tenderness (right upper quadrant). Absent: distended, guarding, rebound, rigid Back exam: Present: full ROM. Absent: tenderness Neurological exam: Present: alert, oriented X3 Psychiatric exam: Present: normal affect, normal mood Skin exam: Present: warm, dry, normal color. Absent: rash, cyanosis, diaphoretic <Jose Rodriguez - Last Filed: 04/17/21 00:30> Course - Reevaluation(s) Time: 22:09 <Jose Rodriguez - Last Filed: 04/17/21 00:30> Vital Signs 04/16/21 04/16/21 20:35 23:34 Temperature 97.8 F Pulse Rate 78 69 Respiratory 20 18 Rate Blood Pressure 148/111 139/94 O2 Sat by Pulse 97 100 Oximetry - Reevaluation(s) Reevaluation #1: 04/16/21 22:09 Patient states that his doctor told him not to get any more imaging and is refusing x-ray. I did speak with patient regarding plan of care. He states pain will only go away with pain medication. Patient appears tremulous and diaphoretic. Will give Ativan and fentanyl. 04/16/21 22:17 (Jose Rodriguez) Medical Decision Making - Lab Data Result diagrams: 04/16/21 21:37 04/16/21 21:37 <Jose Rodriguez - Last Filed: 04/17/21 00:30> - Lab Data Result diagrams: 04/16/21 21:37 04/16/21 21:37 <Nigel Hamilton - Last Filed: 04/17/21 02:03> - Medical Decision Making 36-year-old male presents with 2 hours of vomiting and abdominal pain. Patient has been seen for this same cyclic vomiting multiple times in the emergency room in the past. He states he is not willing to do x-rays or imaging because his doctor told him it is not necessary. He was unable to provide a urine specimen. CBC and electrolytes are unremarkable. His abdomen is soft. Patient was given multiple antiemetics and pain medications. Patient requesting more pain medications states that is the only thing that stops the pain and vomiting. I did discuss this case with Dr. Hamilton who suggested to give Compazine and Dilaudid. Dilaudid was given and the patient stated relief of pain and was agreeable to being discharged home. I advised the patient to follow-up with his primary care doctor next week. This is likely chronic cyclic vomiting syndrome. His vital signs are stable at discharge. (Jose Rodriguez) - Lab Data Lab Results 04/16/21 04/16/21 04/16/21 Range/Units 21:37 21:37 21:37 WBC 12.2 H (3.8-10.6) k/uL RBC 5.13 (4.30-5.90) m/uL Hgb 13.4 (13.0-17.5) gm/dL Hct 45.8 (39.0-53.0) % MCV 89.2 (80.0-100.0) fL MCH 26.2 (25.0-35.0) pg MCHC 29.3 L (31.0-37.0) g/dL RDW 13.0 (11.5-15.5) % Plt Count 343 (150-450) k/uL MPV 7.9 Neutrophils % 81 % Lymphocytes % 13 % Monocytes % 4 % Eosinophils % 1 % Basophils % 0 % Neutrophils # 9.9 H (1.3-7.7) k/uL Lymphocytes # 1.6 (1.0-4.8) k/uL Monocytes # 0.5 (0-1.0) k/uL Eosinophils # 0.1 (0-0.7) k/uL Basophils # 0.0 (0-0.2) k/uL PT 10.3 (9.0-12.0) sec INR 0.9 (<1.2) APTT 23.5 (22.0-30.0) sec Sodium 139 (137-145) mmol/L Potassium 4.4 (3.5-5.1) mmol/L Chloride 103 (98-107) mmol/L Carbon Dioxide 25 (22-30) mmol/L Anion Gap 11 mmol/L BUN 12 (9-20) mg/dL Creatinine 0.81 (0.66-1.25) mg/dL Est GFR (CKD-EPI)AfAm >90 (>60 ml/min/1.73 sqM) Est GFR (CKD-EPI)NonAf >90 (>60 ml/min/1.73 sqM) Glucose 105 H (74-99) mg/dL Plasma Lactic Acid [place] (0.7-2.0) mmol/L Calcium 10.0 (8.4-10.2) mg/dL Total Bilirubin 1.2 (0.2-1.3) mg/dL AST 33 (17-59) U/L ALT 46 (4-49) U/L Alkaline Phosphatase 80 (38-126) U/L Total Protein 8.0 (6.3-8.2) g/dL Albumin 4.9 (3.5-5.0) g/dL Amylase 68 (30-110) U/L Lipase 58 (23-300) U/L 04/16/21 Range/Units 21:37 WBC (3.8-10.6) k/uL RBC (4.30-5.90) m/uL Hgb (13.0-17.5) gm/dL Hct (39.0-53.0) % MCV (80.0-100.0) fL MCH (25.0-35.0) pg MCHC (31.0-37.0) g/dL RDW (11.5-15.5) % Plt Count (150-450) k/uL MPV Neutrophils % % Lymphocytes % % Monocytes % % Eosinophils % % Basophils % % Neutrophils # (1.3-7.7) k/uL Lymphocytes # (1.0-4.8) k/uL Monocytes # (0-1.0) k/uL Eosinophils # (0-0.7) k/uL Basophils # (0-0.2) k/uL PT (9.0-12.0) sec INR (<1.2) APTT (22.0-30.0) sec Sodium (137-145) mmol/L Potassium (3.5-5.1) mmol/L Chloride (98-107) mmol/L Carbon Dioxide (22-30) mmol/L Anion Gap mmol/L BUN (9-20) mg/dL Creatinine (0.66-1.25) mg/dL Est GFR (CKD-EPI)AfAm (>60 ml/min/1.73 sqM) Est GFR (CKD-EPI)NonAf (>60 ml/min/1.73 sqM) Glucose (74-99) mg/dL Plasma Lactic Acid [place] 1.0 (0.7-2.0) mmol/L Calcium (8.4-10.2) mg/dL Total Bilirubin (0.2-1.3) mg/dL AST (17-59) U/L ALT (4-49) U/L Alkaline Phosphatase (38-126) U/L Total Protein (6.3-8.2) g/dL Albumin (3.5-5.0) g/dL Amylase (30-110) U/L Lipase (23-300) U/L Disposition Is patient prescribed a controlled substance at d/c from ED?: No Time of Disposition: 23:07 <Jose Rodriguez - Last Filed: 04/17/21 00:30> <Nigel Hamilton - Last Filed: 04/17/21 02:03> Clinical Impression: Cyclic vomiting syndrome Disposition: HOME SELF-CARE Condition: Good Instructions (If sedation given, give patient instructions): Abdominal Pain (ED) Additional Instructions: Continue previously prescribed medications and follow up with your primary care doctor next week. Referrals: Mary Dougherty MD [Primary Care Provider] - 1-2 days
[2021-04-16 21:53] LABS: Basophils % (A) 0 %; Eosinophils # (A) 0.1 k/uL (0-0.7); Eosinophils % (A) 1 %; HCT 45.8 % (39.0-53.0); HGB 13.4 gm/dL (13.0-17.5); Lymphocytes # (A) 1.6 k/uL (1.0-4.8); Lymphocytes % (A) 13 %; MCH 26.2 pg (25.0-35.0); MCHC 29.3 g/dL (31.0-37.0); MCV 89.2 fL (80.0-100.0); Mean Platelet Volume 7.9; Monocytes # (A) 0.5 k/uL (0-1.0); Monocytes % (A) 4 %; Neutrophils # (A) 9.9 k/uL (1.3-7.7); Neutrophils % (A) 81 %; Platelet Count 343 k/uL (150-450); RBC 5.13 m/uL (4.30-5.90); WBC 12.2 k/uL (3.8-10.6)
[2021-04-16 22:12] LABS: ALT 46 U/L (4-49); AST 33 U/L (17-59); African American GFR (CKD) >90 (>60 ml/min/1.73 sqM); Albumin 4.9 g/dL (3.5-5.0); Alkaline Phosphatase 80 U/L (38-126); Amylase 68 U/L (30-110); Anion Gap 11 mmol/L; Blood Urea Nitrogen 12 mg/dL (9-20); Carbon Dioxide 25 mmol/L (22-30); Chloride 103 mmol/L (98-107); Glucose 105 mg/dL (74-99); Lipase 58 U/L (23-300); Non-African American GFR(CKD) >90 (>60 ml/min/1.73 sqM); Potassium 4.4 mmol/L (3.5-5.1); Sodium 139 mmol/L (137-145); Total Bilirubin 1.2 mg/dL (0.2-1.3)
[2021-04-16 22:14] LABS: INR 0.9 (<1.2); Partial Thromboplastin Time 23.5 sec (22.0-30.0); Prothrombin Time 10.3 sec (9.0-12.0)
[2021-04-16] MEDS ORDERED: LORazepam 2 MG/ML INJ IV STA (22:15)
[2021-04-16] MEDS ORDERED: fentaNYL (PF) 50 MCG/ML 2 ML AMP IVP STA (22:16)
[2021-04-16] MEDS ORDERED: HYDROmorphone 1 MG/ML 1 ML SYRINGE IVP STA (23:05)
[2021-04-16] MEDS ORDERED: PROCHLORPERAZINE INJ 10 MG/2 ML VIAL IVP STA (23:05)
[2021-04-16 23:36] VITALS: BP 139/94; PULSE 69; RESP 18
== END 2021-04-16 23:36 | disposition home or self-care (01) ==
LOC: EC 20:11
DX: R11.15 Cyclical vomiting syndrome unrelated to migraine (principal); R10.11 Right upper quadrant pain; J45.909 Unspecified asthma, uncomplicated; K21.9 Gastro-esophageal reflux disease without esophagitis; F41.9 Anxiety disorder, unspecified; F12.90 Cannabis use, unspecified, uncomplicated; Z79.899 Other long term (current) drug therapy
CPT/HCPCS: 80053; 82150; 83605; 83690; 85025; 85610; 85730; 99284; 96374; 96375 ×6; 96361; J2060; J1200; J0780; J2405; J3010; J1170; 36415

== ENCOUNTER 2021-04-18 11:44 | Emergency (ER) | payer OTHER ==
[2021-04-18 11:47] VITALS: BP 139/94; PULSE 82; RESP 18; TEMP 97.9
[2021-04-18] MEDS ORDERED: ONDANSETRON 4 MG TAB PO STA (12:09)
[2021-04-18] MEDS ORDERED: MAG HYDROX/AL HYDROX/SIMETH 30 ML, HYOSCYAMINE ELIXIR 10 ML, LIDOCAINE VISCOUS 2% 10 ML PO STA ×3 (12:10)
[2021-04-18] MEDS ORDERED: SODIUM CHLORIDE 0.9% 2,000 ML IV STA (12:11)
--- NOTE | 2021-04-18 12:22 | ED ---
Abdominal Pain HPI - General Chief Complaint: Abdominal Pain Stated Complaint: abd pain Time Seen by Provider: 04/18/21 11:53 Source: patient Mode of arrival: ambulatory Limitations: no limitations - History of Present Illness Initial Comments: Patient is a 36-year-old male with a past medical history of cholecystectomy, appendectomy, and cyclic vomiting syndrome who presents to the emergency department with a chief complaint of right-sided abdominal pain. Patient reports that he was here last night and was given pain medication which helped the pain however documentation indicates that he was last seen here on 04/16/21 for similar symptoms. At this time laboratory studies were relatively unremarkable and patient refused any imaging but did request pain medication. After given Dilaudid and Ativan patient requested more pain medication and Fentanyl was given. Today patient reports that the pain continued after he got home. The pain is unchanged, generalized in the right upper quadrant and right lower quadrant. Patient has not experienced vomiting but continues to feel nauseous. He is requesting pain medication today. He denies other concerns at this time including fever, chills, shortness of breath, chest pain, back pain, diarrhea, and burning to urination. Patient states he smokes 1 g of marijuana every other day. - Related Data Home Medications Medication Instructions Recorded Confirmed LORazepam [Ativan] 1 mg PO QID PRN 08/13/18 04/16/21 Amitriptyline HCl [Elavil] 150 mg PO HS 10/08/19 04/16/21 HYDROcodone/APAP 10-325MG [Stow 1 tab PO TID PRN 09/15/20 04/16/21 10-325] Famotidine [Pepcid AC] 10 mg PO BID PRN 02/12/21 04/16/21 Allergies Allergy/AdvReac Type Severity Reaction Status Date / Time haloperidol [From Haldol] AdvReac Hallucinati Verified 04/16/21 22:26 ons ketorolac [From Toradol] AdvReac Nausea & Verified 04/16/21 22:26 Vomiting Review of Systems ROS Statement: Those systems with pertinent positive or pertinent negative responses have been documented in the HPI. ROS Other: All systems not noted in ROS Statement are negative. Past Medical History Past Medical History: Asthma, GERD/Reflux Additional Past Medical History / Comment(s): cyclic vomiting syndrome, numbness/tingling bilateral feet when vomiting, low back pain/ruptured discs, occupational asthma, History of Any Multi-Drug Resistant Organisms: None Reported Past Surgical History: Adenoidectomy, Appendectomy, Cholecystectomy, Orthopedic Surgery, Tonsillectomy Additional Past Surgical History / Comment(s): EGD, ORIF bilateral ankles, Past Anesthesia/Blood Transfusion Reactions: No Reported Reaction Past Psychological History: Anxiety Smoking Status: Never smoker Past Alcohol Use History: None Reported Past Drug Use History: Marijuana - Past Family History Father Family Medical History: No Reported History Mother Family Medical History: Diabetes Mellitus Additional Family Medical History / Comment(s): severe food allergies General Exam Limitations: no limitations General appearance: alert, in no apparent distress Head exam: Present: atraumatic, normocephalic, normal inspection Eye exam: Present: normal appearance, PERRL, EOMI. Absent: scleral icterus, conjunctival injection Neck exam: Present: normal inspection Respiratory exam: Present: normal lung sounds bilaterally. Absent: respiratory distress, wheezes, rales, rhonchi, stridor Cardiovascular Exam: Present: regular rate, normal rhythm, normal heart sounds. Absent: systolic murmur, diastolic murmur, rubs, gallop, clicks GI/Abdominal exam: Present: soft, normal bowel sounds. Absent: distended, tenderness, guarding, rebound, rigid Neurological exam: Present: alert, oriented X3, CN II-XII intact Psychiatric exam: Present: normal affect, normal mood Skin exam: Present: warm, dry, intact, normal color. Absent: rash, diaphoretic, pallor Course Vital Signs 04/18/21 11:45 Temperature 97.9 F Pulse Rate 82 Respiratory 18 Rate Blood Pressure 139/94 O2 Sat by Pulse 99 Oximetry Medical Decision Making - Medical Decision Making This is a 36-year-old male who presents with right-sided abdominal pain nausea. Thorough history and examination were performed. Patient has been evaluated multiple times at this emergency department for the past several months. He is afebrile. Abdomen is nontender. Patient and I had a long discussion about repeat narcotic use in the emergency department. I told the patient that we could trial nausea medication, Capsaicin cream, and IV fluids while waiting for laboratory studies and patient declined. He was then offered Tylenol and declined. Patient stated "he was taken care of last night with Dilaudid and fentanyl". Patient told nurse he is going to leave against medical advice. Risks and benefits were discussed. Patient refused to sign AMA forms and walked out of the emergency room. Dr. Thompson is my attending. Disposition Clinical Impression: Abdominal pain, Nausea Disposition: HOME SELF-CARE Condition: Good Instructions (If sedation given, give patient instructions): Cyclic Vomiting Syndrome (ED) Additional Instructions: NA as patient left against medical advice without being discharged or signing AMA papers. Is patient prescribed a controlled substance at d/c from ED?: No Referrals: Mary Dougherty MD [Primary Care Provider] - 1-2 days Time of Disposition: 12:39
== END 2021-04-18 12:19 | disposition home or self-care (01) ==
LOC: EC 11:44
DX: R10.11 Right upper quadrant pain (principal); R10.31 Right lower quadrant pain; R11.0 Nausea; K21.9 Gastro-esophageal reflux disease without esophagitis; J45.909 Unspecified asthma, uncomplicated; F41.9 Anxiety disorder, unspecified; F12.90 Cannabis use, unspecified, uncomplicated; Z88.1 Allergy status to other antibiotic agents; Z90.49 Acquired absence of other specified parts of digestive tract
CPT/HCPCS: 99283